=== PATIENT | male | born 1940 | race Caucasian/White ===

== ENCOUNTER 2018-08-05 16:55 | Inpatient (IN) | payer MEDICARE, OTHER, SELFPAY ==
[2018-08-05] VITALS (8 sets, daily range): BP systolic 135–170; BP diastolic 53–83; PULSE 86–120; RESP 18–29; TEMP 36.3–37.2; O2SAT 92–99; BMI 18.3
--- NOTE | 2018-08-05 17:09 | ED.ABDPAIN ---
HPI - Abdominal Pain <Oriana Goel PA-C - Last Filed: 08/05/18 21:08> General Chief Complaint: Abdominal Pain Stated Complaint: bad stomach aches x9 days Time Seen by Provider: 08/05/18 17:09 Source: patient and family Mode of arrival: ambulatory Limitations: no limitations History of Present Illness HPI narrative: This 78-year-old male comes in today due to persistent and worsening abdominal pain. He states that about a month ago, he began to have early saiety and reduced appetite. He thinks he has lost about 30 lb in the last month (7 lbs in the last week since he last weighed himself). He states he has not had any vomiting aside from a single episode a few weeks ago, has had some mild nausea. Two weeks ago, he began to have bilateral flank pain which resolved in a couple of days, and several days later began to have pain in his abdomen. He states the location seems to move around, most recently in the upper quadrants below his rib cage. He states that this has been progressively worsening over the last week, does not feel like his previous kidney stones. Pain is worsened with any jolting, coughing, sneezing. He has not really found any alleviating features. It is present constantly. He tried stop his vitamins, Pepcid, without relief. He states that he has some chronic cough due to long time smoking, denies any new dyspnea or chest pain. He states that he was having normal bowel movements until a few days ago, has not had 1 since but has been eating nothing, and has not eaten today. He is tolerating fluids and has been urinating normally. He denies any fever, recent illness or upper respiratory symptoms or other new complaints on exam such as weakness, pain in arms or legs, or headache. He states that pain does not keep him awake at night. He states he does not see a healthcare provider regularly, does not know of any chronic conditions. The other new symptom on systems review the he notes was tremulousness in his left arm and then leg for 1 day 10 days ago. He states he did not have any weakness or paresthesia and that since resolved. Related Data Home Medications Medication Instructions Recorded Confirmed No Known Home Medications 08/05/18 08/05/18 Allergies Allergy/AdvReac Type Severity Reaction Status Date / Time No Known Drug Allergies Allergy Verified 08/05/18 17:10 Review of Systems <Oriana Goel PA-C - Last Filed: 08/05/18 21:08> Review of Systems All systems reviewed & are unremarkable except as noted in HPI and below PFSH <Oriana Goel PA-C - Last Filed: 08/05/18 21:08> Comment: 120py tob, current smoker, heavy etoh use in his 20s, none since, no street drugs Exam <Oriana Goel PA-C - Last Filed: 08/05/18 21:08> Narrative Exam Narrative: GENERAL APPEARANCE: Patient sitting comfortably, in no distress. HEENT: PERRL, EOMI, no scleral icterus NECK: Supple LUNGS: coarse BS without cough on exam HEART: Rate and rhythm regular, normal S1 and S2, no S3 or S4. ABDOMEN: Soft, nondistended, bowel sounds present x 4 quadrants, right upper quadrant tender with palpable liver border at the costal margin, positive Carlos sign, moderate tenderness throughout the remainder of the epigastrium and mild tenderness throughout the lower quadrants without guarding or rebound. No splenomegaly, no palpable masses EXTREMITIES: No edema, no cyanosis or calf tenderness DERMATOLOGIC: No jaundice or exanthem NEUROLOGIC: Alert and oriented with normal speech and coordination Initial Vital Signs Initial Vital Signs: Vital Signs Temperature 97.4 F L 08/05/18 17:00 Pulse Rate 120 H 08/05/18 17:00 Respiratory Rate 24 08/05/18 17:00 Blood Pressure 141/83 H 08/05/18 17:00 Pulse Oximetry 97 08/05/18 17:00 <Francisca Stein DO - Last Filed: 08/06/18 06:39> Initial Vital Signs Initial Vital Signs: Vital Signs Temperature 97.4 F L 08/05/18 17:00 Pulse Rate 120 H 08/05/18 17:00 Respiratory Rate 24 08/05/18 17:00 Blood Pressure 141/83 H 08/05/18 17:00 Pulse Oximetry 97 08/05/18 17:00 Course <KEYUR Cloud Last Filed: 08/05/18 21:08> Additional Information: Patient reports feeling markedly improved after medications and hydration. We reviewed CT findings and his preference would be to follow up as an outpatient, but Dr. Hester thinks CT findings most consistent with pancreatitis and advised admission to medicine and he will consult. Patient is agreeable. Dr. Paredes salesperson neckties for medicine advised admission for observation. He will see patient and write orders Orders Ordered: ED Orders 08/06/18 Gram Stain Urgent Sputum Culture Urgent 08/06/18 05:42 Complete Blood Count AUTO DIFF Routine Comprehensive Metabolic Panel Routine Lipase Routine Troponin I Routine Acetaminophen (Tylenol) 650 mg PO Q6H PRN PRN Reason: As Needed for Fever/Mild Pain Al Hydrox/Mg Hydrox/Simethicone (Maalox Plus) 30 ml PO Q6H PRN PRN Reason: Dyspepsia Enoxaparin Sodium (Lovenox) 40 mg SUBCUT DAILY [facility] Hydromorphone HCl (Dilaudid) 0.5 mg IV Q2H PRN PRN Reason: Pain, Moderate (4-6) Hydromorphone HCl (Dilaudid) 1 mg IV Q1HR PRN PRN Reason: Pain, Severe (7-10) Sodium Chloride (Normal Saline 0.9%) 1,000 mls @ 1,000 mls/hr IV CONT [facility] Last Infusion: 08/05/18 19:11 Dose: 0 mls/hr Admin: 08/05/18 17:51 Dose: 1,000 mls/hr Dextrose/Sodium Chloride (Dextrose 5%-0.45% Ns) 1,000 mls @ 100 mls/hr IV CONT [facility] Last Admin: 08/05/18 21:59 Dose: 100 mls/hr Ampicillin Sodium/Sulbactam (Sodium 3 gm/ Sodium Chloride) 100 mls @ 100 mls/hr IV Q6H [facility] Last Admin: 08/06/18 06:12 Dose: 100 mls/hr Metronidazole (Flagyl) 500 mg in 100 mls @ 100 mls/hr IV Q6H [facility] Last Infusion: 08/06/18 06:34 Dose: 0 mls/hr Admin: 08/06/18 05:20 Dose: 100 mls/hr Ondansetron HCl (Zofran) 4 mg IV Q8H PRN PRN Reason: Nausea And Vomiting Discontinued Medications Hydromorphone HCl (Dilaudid) 0.5 mg IV NOW ONE Stop: 08/05/18 17:36 Last Admin: 08/05/18 17:50 Dose: 0.5 mg Hydromorphone HCl (Dilaudid) 1 mg IV Q4H PRN PRN Reason: Pain, Severe (7-10) Last Admin: 08/06/18 04:46 Dose: 1 mg Hydromorphone HCl (Dilaudid) 1 mg IV Q1HR [facility] Ampicillin Sodium/Sulbactam (Sodium 3 gm/ Sodium Chloride) 100 mls @ 100 mls/hr IV Q6H [facility] Last Infusion: 08/05/18 23:34 Dose: 0 mls/hr Admin: 08/05/18 21:59 Dose: 100 mls/hr Metronidazole (Flagyl) 500 mg in 100 mls @ 100 mls/hr IV Q6H [facility] Last Infusion: 08/06/18 04:46 Dose: 0 mls/hr Admin: 08/05/18 23:41 Dose: 100 mls/hr Pantoprazole Sodium (Protonix) 40 mg IV NOW ONE Stop: 08/05/18 19:15 Last Admin: 08/05/18 19:44 Dose: 40 mg Vital Signs - 8 hr 08/05/18 23:35 08/06/18 00:18 08/06/18 04:10 Temperature 98.0 F 98.4 F Pulse Rate 87 92 H Respiratory Rate 20 20 Blood Pressure 150/70 H 146/68 H Pulse Oximetry 93 95 98 <Francisca Stein, - Last Filed: 08/06/18 06:39> Orders Ordered: ED Orders 08/06/18 Gram Stain Urgent Sputum Culture Urgent 08/06/18 05:42 Complete Blood Count AUTO DIFF Routine Comprehensive Metabolic Panel Routine Lipase Routine Troponin I Routine Acetaminophen (Tylenol) 650 mg PO Q6H PRN PRN Reason: As Needed for Fever/Mild Pain Al Hydrox/Mg Hydrox/Simethicone (Maalox Plus) 30 ml PO Q6H PRN PRN Reason: Dyspepsia Enoxaparin Sodium (Lovenox) 40 mg SUBCUT DAILY [facility] Hydromorphone HCl (Dilaudid) 0.5 mg IV Q2H PRN PRN Reason: Pain, Moderate (4-6) Hydromorphone HCl (Dilaudid) 1 mg IV Q1HR PRN PRN Reason: Pain, Severe (7-10) Sodium Chloride (Normal Saline 0.9%) 1,000 mls @ 1,000 mls/hr IV CONT [facility] Last Infusion: 08/05/18 19:11 Dose: 0 mls/hr Admin: 08/05/18 17:51 Dose: 1,000 mls/hr Dextrose/Sodium Chloride (Dextrose 5%-0.45% Ns) 1,000 mls @ 100 mls/hr IV CONT [facility] Last Admin: 08/05/18 21:59 Dose: 100 mls/hr Ampicillin Sodium/Sulbactam (Sodium 3 gm/ Sodium Chloride) 100 mls @ 100 mls/hr IV Q6H [facility] Last Admin: 08/06/18 06:12 Dose: 100 mls/hr Metronidazole (Flagyl) 500 mg in 100 mls @ 100 mls/hr IV Q6H [facility] Last Infusion: 08/06/18 06:34 Dose: 0 mls/hr Admin: 08/06/18 05:20 Dose: 100 mls/hr Ondansetron HCl (Zofran) 4 mg IV Q8H PRN PRN Reason: Nausea And Vomiting Discontinued Medications Hydromorphone HCl (Dilaudid) 0.5 mg IV NOW ONE Stop: 08/05/18 17:36 Last Admin: 08/05/18 17:50 Dose: 0.5 mg Hydromorphone HCl (Dilaudid) 1 mg IV Q4H PRN PRN Reason: Pain, Severe (7-10) Last Admin: 08/06/18 04:46 Dose: 1 mg Hydromorphone HCl (Dilaudid) 1 mg IV Q1HR [facility] Ampicillin Sodium/Sulbactam (Sodium 3 gm/ Sodium Chloride) 100 mls @ 100 mls/hr IV Q6H [facility] Last Infusion: 08/05/18 23:34 Dose: 0 mls/hr Admin: 08/05/18 21:59 Dose: 100 mls/hr Metronidazole (Flagyl) 500 mg in 100 mls @ 100 mls/hr IV Q6H [facility] Last Infusion: 08/06/18 04:46 Dose: 0 mls/hr Admin: 08/05/18 23:41 Dose: 100 mls/hr Pantoprazole Sodium (Protonix) 40 mg IV NOW ONE Stop: 08/05/18 19:15 Last Admin: 08/05/18 19:44 Dose: 40 mg Vital Signs - 8 hr 08/05/18 23:35 08/06/18 00:18 08/06/18 04:10 Temperature 98.0 F 98.4 F Pulse Rate 87 92 H Respiratory Rate 20 20 Blood Pressure 150/70 H 146/68 H Pulse Oximetry 93 95 98 MDM - Abdominal Pain <Oriana Goel PA-C - Last Filed: 08/05/18 21:08> Lab Data Attestation: I reviewed the patient's lab results. Result diagrams: 08/06/18 05:42 08/06/18 05:42 Lab Results 08/05/18 08/05/18 08/05/18 Range/Units 17:25 17:25 17:25 WBC 10.2 (4.5-11.0) X10^3/uL RBC 5.40 (4.5-5.9) X10^6/uL Hgb 15.1 (13.5-17.5) g/dL Hct 45.0 (41-53) % MCV 83.4 (80-100) fL MCH 28.0 (26-34) PG MCHC 33.6 (30-36) % RDW 14.2 (11.6-14.8) % Plt Count 327 (150-400) X10^3/uL Neut % (Auto) 81.2 H (50-75) % Lymph % (Auto) 7.7 L (25-40) % [place] % (Auto) 9.4 (3-14) % Eos % (Auto) 1.4 L (2-4) % Baso % (Auto) 0.3 (0-2) % Neut # (Auto) 8300 H (2383-2146) /uL ESR 14 (0-15) MM/HR Sodium 140 (137-145) mmol/L Potassium 4.0 (3.4-5.1) mmol/L Chloride 96 L (98-107) mmol/L Carbon Dioxide 29 (22-32) mmol/L BUN 18 (9-20) mg/dL Creatinine 0.70 (0.66-1.25) mg/dL Estimated GFR > 60.0 (>60) mL/min BUN/Creatinine Ratio 25.7 H (6-22) Glucose 120 H (80-110) mg/dL Lactate (0.7-2.1) mmol/L Calcium 9.4 (8.4-10.2) mg/dL Total Bilirubin 1.2 (0.2-1.3) mg/dL AST 21 (17-59) IU/L ALT 45 (21-72) IU/L Alkaline Phosphatase 126 (38-126) U/L Troponin I (0.01-0.034) ng/mL Total Protein 7.9 (6.3-8.2) g/dL Albumin 4.2 (3.5-5.0) g/dL Globulin 3.7 (1.7-4.1) g/dL Albumin/Globulin Ratio 1.1 (1.0-2.8) Lipase 716 H (23-300) U/L Procalcitonin (<0.5) ng/mL 08/05/18 08/05/18 08/06/18 Range/Units 21:25 21:25 05:42 WBC 6.7 (4.5-11.0) X10^3/uL RBC 4.30 L (4.5-5.9) X10^6/uL Hgb 12.1 L (13.5-17.5) g/dL Hct 35.6 L (41-53) % MCV 82.8 (80-100) fL MCH 28.1 (26-34) PG MCHC 34.0 (30-36) % RDW 13.9 (11.6-14.8) % Plt Count 230 (150-400) X10^3/uL Neut % (Auto) 72.7 (50-75) % Lymph % (Auto) 10.8 L (25-40) % [place] % (Auto) 11.5 (3-14) % Eos % (Auto) 4.5 H (2-4) % Baso % (Auto) 0.5 (0-2) % Neut # (Auto) 4900 (6581-6107) /uL ESR (0-15) MM/HR Sodium (137-145) mmol/L Potassium (3.4-5.1) mmol/L Chloride (98-107) mmol/L Carbon Dioxide (22-32) mmol/L BUN (9-20) mg/dL Creatinine (0.66-1.25) mg/dL Estimated GFR (>60) mL/min BUN/Creatinine Ratio (6-22) Glucose (80-110) mg/dL Lactate 0.7 (0.7-2.1) mmol/L Calcium (8.4-10.2) mg/dL Total Bilirubin (0.2-1.3) mg/dL AST (17-59) IU/L ALT (21-72) IU/L Alkaline Phosphatase (38-126) U/L Troponin I (0.01-0.034) ng/mL Total Protein (6.3-8.2) g/dL Albumin (3.5-5.0) g/dL Globulin (1.7-4.1) g/dL Albumin/Globulin Ratio (1.0-2.8) Lipase (23-300) U/L Procalcitonin < 0.05 (<0.5) ng/mL 08/06/18 Range/Units 05:42 WBC (4.5-11.0) X10^3/uL RBC (4.5-5.9) X10^6/uL Hgb (13.5-17.5) g/dL Hct (41-53) % MCV (80-100) fL MCH (26-34) PG MCHC (30-36) % RDW (11.6-14.8) % Plt Count (150-400) X10^3/uL Neut % (Auto) (50-75) % Lymph % (Auto) (25-40) % [place] % (Auto) (3-14) % Eos % (Auto) (2-4) % Baso % (Auto) (0-2) % Neut # (Auto) (5422-2438) /uL ESR (0-15) MM/HR Sodium 138 (137-145) mmol/L Potassium 3.8 (3.4-5.1) mmol/L Chloride 101 (98-107) mmol/L Carbon Dioxide 28 (22-32) mmol/L BUN 14 (9-20) mg/dL Creatinine 0.60 L (0.66-1.25) mg/dL Estimated GFR > 60.0 (>60) mL/min BUN/Creatinine Ratio 23.3 H (6-22) Glucose 128 H (80-110) mg/dL Lactate (0.7-2.1) mmol/L Calcium 8.4 (8.4-10.2) mg/dL Total Bilirubin 0.8 (0.2-1.3) mg/dL AST 20 (17-59) IU/L ALT 36 (21-72) IU/L Alkaline Phosphatase 79 (38-126) U/L Troponin I 0.020 (0.01-0.034) ng/mL Total Protein 5.7 L (6.3-8.2) g/dL Albumin 2.9 L (3.5-5.0) g/dL Globulin 2.8 (1.7-4.1) g/dL Albumin/Globulin Ratio 1.0 (1.0-2.8) Lipase 439 H (23-300) U/L Procalcitonin (<0.5) ng/mL Imaging Data CT scan - abdomen: Radiologist's impression: [address] [address] [address] Scan Report Signed Patient: Yair Kennedy [facility]#: [id number] : 2Acct:[id number] Age/Sex: 78 / MDate of Service: 08/05/18 Loc: ED Accession Number: [id number] Procedure: CT chest abd pel w con Ordering Provider: Oriana Goel P.A-C PROCEDURE: CT CHEST ABD PEL W CON INDICATIONS: pain, early saiety, weight loss TECHNIQUE: After the administration of intravenous contrast, 5 mm thick sections acquired from the lung apices to the symphysis. 5 mm coronal and sagittal reformats were performed, with additional 7 mm MIP reformats through the lungs. For radiation dose reduction, the following was used: automated exposure control, adjustment of mA and/or kV according to patient size. COMPARISON: None. FINDINGS: Image quality: Excellent. Diagnostic sensitivity for causes of early satiety and weight loss decreased secondary to lack of oral contrast. CHEST: Lungs and pleura: Severe emphysematous changes noted in the lungs bilaterally. There is a 1.4 x 2.0 x 4.8 cm partially calcified soft tissue density mass in the lateral periphery of the left upper lobe may represent parenchymal scarring versus primary bronchogenic neoplasm. There is a 3.2 x 5.1 x 5.6 cm cavitary lesion in the posterior aspect of the right lung apex which contains internal air air-fluid level. Finding may represent infectious or neoplastic process. There is a 2.3 x 1.5 x 3.2 cm partially calcified mass in the mesial aspect of the left upper lobe. There is a 7 mm nodule in the superior segment of the left lower lobe. No pleural effusions or pneumothorax. Central and peripheral airways appear patent and normal in caliber. Mediastinum: Heart size is normal. Atherosclerotic calcifications are noted in the aorta, great vessels and the coronary vasculature. No pericardial effusion. No mediastinal or hilar adenopathy by size criteria. Thoracic aorta and central pulmonary arteries are normal in size. Esophagus is normal in caliber. No hiatal hernia. Chest wall: No axillary or supraclavicular adenopathy by size criteria. Thyroid gland is within normal limits. ABDOMEN: Solid organs: Liver is normal in size and enhancement. Gallbladder contains multiple gallstones. There is prominence of the gallbladder wall. Biliary system is non dilated. Pancreas enhances normally. The calcification noted in the mid body of the pancreas compatible sequela prior chronic pancreatitis. Spleen is normal in size and enhancement. No adrenal nodules. Kidneys demonstrate normal size and enhancement, without hydronephrosis. Small right renal cysts. Peritoneum and bowel: There is prominence of the proximal gastric wall which could be due to nondistention, inflammatory process or infiltrating neoplasm. Inflammatory changes are noted adjacent to the inferior margin of the stomach and superior margin of the tail of the pancreas. Large and small bowel loops have normal caliber. Colonic diverticuli without evidence of diverticulitis. No free air. Small amount of free fluid noted in the lower pelvis. Nodes and vessels: No retroperitoneal or mesenteric adenopathy by size criteria. Aorta and inferior vena cava are normal in size. Scattered atherosclerotic calcifications are noted in the abdominal and pelvic vasculature. Miscellaneous: No ventral hernias. PELVIS: Genitourinary: Bladder wall thickness is normal. Prostate is enlarged. Miscellaneous: No inguinal adenopathy. Right inguinal hernia is noted which contains unremarkable appearing loops of small bowel. Bones: No suspicious bony lesions. No vertebral body compression fractures. Spine degenerative disease and facet arthropathy noted. IMPRESSION: 1. Diagnostic sensitivity of study for causes of weight loss and early satiety diminished secondary to absence of oral contrast. 2. Right upper lobe and left upper lobe partially calcified masses which could represent a parenchymal scarring versus neoplastic process. 3. Cavitary lesion with internal air fluid level in the left lung apex which should represent infectious or neoplastic process. 4. Proximal gastric wall thickening which could be due to nondistention, gastritis or infiltrating malignancy. Recommend endoscopy or barium contrast upper GI series for further evaluation. 5. Inflammatory changes along the inferior margin of the stomach and superior margin of the pancreas which could be secondary to gastritis or pancreatitis. Please correlate with laboratory data. 6. Cholelithiasis with gallbladder wall prominence. There is clinical concern for cholecystitis, recommend abdominal ultrasound for further evaluation. 7. Colonic diverticulosis without evidence of diverticulitis. 8. Large right inguinal hernia which contains unremarkable appearing loops of small bowel. 9. Severe bilateral lung emphysematous disease. 10. Atherosclerosis including the coronary vasculature. Dictated by: Melissa Velarde MD, PhD on 08/05/2018 at 18:49 Approved by: Melissa Velarde MD, PhD on 08/05/2018 at 19:05 ECG Data Attestation: I personally reviewed and interpreted this ECG as follows: (Sinus tach, rate 101, with LAD, L ant fasc block pattern. ) Prior ECG tracings: not available for review <Francisca Stein DO - Last Filed: 08/06/18 06:39> Lab Data Attestation: I reviewed the patient's lab results. Lab Results 08/05/18 08/05/18 08/05/18 Range/Units 17:25 17:25 17:25 WBC 10.2 (4.5-11.0) X10^3/uL RBC 5.40 (4.5-5.9) X10^6/uL Hgb 15.1 (13.5-17.5) g/dL Hct 45.0 (41-53) % MCV 83.4 (80-100) fL MCH 28.0 (26-34) PG MCHC 33.6 (30-36) % RDW 14.2 (11.6-14.8) % Plt Count 327 (150-400) X10^3/uL Neut % (Auto) 81.2 H (50-75) % Lymph % (Auto) 7.7 L (25-40) % [place] % (Auto) 9.4 (3-14) % Eos % (Auto) 1.4 L (2-4) % Baso % (Auto) 0.3 (0-2) % Neut # (Auto) 8300 H (3280-2684) /uL ESR 14 (0-15) MM/HR Sodium 140 (137-145) mmol/L Potassium 4.0 (3.4-5.1) mmol/L Chloride 96 L (98-107) mmol/L Carbon Dioxide 29 (22-32) mmol/L BUN 18 (9-20) mg/dL Creatinine 0.70 (0.66-1.25) mg/dL Estimated GFR > 60.0 (>60) mL/min BUN/Creatinine Ratio 25.7 H (6-22) Glucose 120 H (80-110) mg/dL Lactate (0.7-2.1) mmol/L Calcium 9.4 (8.4-10.2) mg/dL Total Bilirubin 1.2 (0.2-1.3) mg/dL AST 21 (17-59) IU/L ALT 45 (21-72) IU/L Alkaline Phosphatase 126 (38-126) U/L Troponin I (0.01-0.034) ng/mL Total Protein 7.9 (6.3-8.2) g/dL Albumin 4.2 (3.5-5.0) g/dL Globulin 3.7 (1.7-4.1) g/dL Albumin/Globulin Ratio 1.1 (1.0-2.8) Lipase 716 H (23-300) U/L Procalcitonin (<0.5) ng/mL 08/05/18 08/05/18 08/06/18 Range/Units 21:25 21:25 05:42 WBC 6.7 (4.5-11.0) X10^3/uL RBC 4.30 L (4.5-5.9) X10^6/uL Hgb 12.1 L (13.5-17.5) g/dL Hct 35.6 L (41-53) % MCV 82.8 (80-100) fL MCH 28.1 (26-34) PG MCHC 34.0 (30-36) % RDW 13.9 (11.6-14.8) % Plt Count 230 (150-400) X10^3/uL Neut % (Auto) 72.7 (50-75) % Lymph % (Auto) 10.8 L (25-40) % [place] % (Auto) 11.5 (3-14) % Eos % (Auto) 4.5 H (2-4) % Baso % (Auto) 0.5 (0-2) % Neut # (Auto) 4900 (6805-4323) /uL ESR (0-15) MM/HR Sodium (137-145) mmol/L Potassium (3.4-5.1) mmol/L Chloride (98-107) mmol/L Carbon Dioxide (22-32) mmol/L BUN (9-20) mg/dL Creatinine (0.66-1.25) mg/dL Estimated GFR (>60) mL/min BUN/Creatinine Ratio (6-22) Glucose (80-110) mg/dL Lactate 0.7 (0.7-2.1) mmol/L Calcium (8.4-10.2) mg/dL Total Bilirubin (0.2-1.3) mg/dL AST (17-59) IU/L ALT (21-72) IU/L Alkaline Phosphatase (38-126) U/L Troponin I (0.01-0.034) ng/mL Total Protein (6.3-8.2) g/dL Albumin (3.5-5.0) g/dL Globulin (1.7-4.1) g/dL Albumin/Globulin Ratio (1.0-2.8) Lipase (23-300) U/L Procalcitonin < 0.05 (<0.5) ng/mL 08/06/18 Range/Units 05:42 WBC (4.5-11.0) X10^3/uL RBC (4.5-5.9) X10^6/uL Hgb (13.5-17.5) g/dL Hct (41-53) % MCV (80-100) fL MCH (26-34) PG MCHC (30-36) % RDW (11.6-14.8) % Plt Count (150-400) X10^3/uL Neut % (Auto) (50-75) % Lymph % (Auto) (25-40) % [place] % (Auto) (3-14) % Eos % (Auto) (2-4) % Baso % (Auto) (0-2) % Neut # (Auto) (4300-8957) /uL ESR (0-15) MM/HR Sodium 138 (137-145) mmol/L Potassium 3.8 (3.4-5.1) mmol/L Chloride 101 (98-107) mmol/L Carbon Dioxide 28 (22-32) mmol/L BUN 14 (9-20) mg/dL Creatinine 0.60 L (0.66-1.25) mg/dL Estimated GFR > 60.0 (>60) mL/min BUN/Creatinine Ratio 23.3 H (6-22) Glucose 128 H (80-110) mg/dL Lactate (0.7-2.1) mmol/L Calcium 8.4 (8.4-10.2) mg/dL Total Bilirubin 0.8 (0.2-1.3) mg/dL AST 20 (17-59) IU/L ALT 36 (21-72) IU/L Alkaline Phosphatase 79 (38-126) U/L Troponin I 0.020 (0.01-0.034) ng/mL Total Protein 5.7 L (6.3-8.2) g/dL Albumin 2.9 L (3.5-5.0) g/dL Globulin 2.8 (1.7-4.1) g/dL Albumin/Globulin Ratio 1.0 (1.0-2.8) Lipase 439 H (23-300) U/L Procalcitonin (<0.5) ng/mL ECG Data Attestation: I personally reviewed and interpreted this ECG as follows: Prior ECG tracings: not available for review Interpretation: Normal sinus rhythm rate 101 normal left anterior fascicular block noted, PVC noted appear interval 126, QRS 97, QTC 378 no ischemic changes no priors to compare Discharge Plan Departure Patient Disposition: Admitted as Observation Clinical Impression: Pancreatitis, Cholecystitis Discharge Date/Time: 08/05/18 20:23 Interventions: ED Discharge Assessment Last Done: 08/05/18 20:22 Admit Date/Time: 08/05/18 19:47 Admit Provider: Tato Paredes <Francisca Stein DO - Last Filed: 08/06/18 06:39> Cosign ED Attending Cosignature Attestation: I was immediately available in the department for consultation. Documentation has been reviewed. I agree with assessment and plan.
--- NOTE | 2018-08-05 17:35 | DI.CT.S_ITS ---
PROCEDURE: CT CHEST ABD PEL W CON INDICATIONS: pain, early saiety, weight loss TECHNIQUE: After the administration of intravenous contrast, 5 mm thick sections acquired from the lung apices to the symphysis. 5 mm coronal and sagittal reformats were performed, with additional 7 mm MIP reformats through the lungs. For radiation dose reduction, the following was used: automated exposure control, adjustment of mA and/or kV according to patient size. COMPARISON: None. FINDINGS: Image quality: Excellent. Diagnostic sensitivity for causes of early satiety and weight loss decreased secondary to lack of oral contrast. CHEST: Lungs and pleura: Severe emphysematous changes noted in the lungs bilaterally. There is a 1.4 x 2.0 x 4.8 cm partially calcified soft tissue density mass in the lateral periphery of the left upper lobe may represent parenchymal scarring versus primary bronchogenic neoplasm. There is a 3.2 x 5.1 x 5.6 cm cavitary lesion in the posterior aspect of the right lung apex which contains internal air air-fluid level. Finding may represent infectious or neoplastic process. There is a 2.3 x 1.5 x 3.2 cm partially calcified mass in the mesial aspect of the left upper lobe. There is a 7 mm nodule in the superior segment of the left lower lobe. No pleural effusions or pneumothorax. Central and peripheral airways appear patent and normal in caliber. Mediastinum: Heart size is normal. Atherosclerotic calcifications are noted in the aorta, great vessels and the coronary vasculature. No pericardial effusion. No mediastinal or hilar adenopathy by size criteria. Thoracic aorta and central pulmonary arteries are normal in size. Esophagus is normal in caliber. No hiatal hernia. Chest wall: No axillary or supraclavicular adenopathy by size criteria. Thyroid gland is within normal limits. ABDOMEN: Solid organs: Liver is normal in size and enhancement. Gallbladder contains multiple gallstones. There is prominence of the gallbladder wall. Biliary system is non dilated. Pancreas enhances normally. The calcification noted in the mid body of the pancreas compatible sequela prior chronic pancreatitis. Spleen is normal in size and enhancement. No adrenal nodules. Kidneys demonstrate normal size and enhancement, without hydronephrosis. Small right renal cysts. Peritoneum and bowel: There is prominence of the proximal gastric wall which could be due to nondistention, inflammatory process or infiltrating neoplasm. Inflammatory changes are noted adjacent to the inferior margin of the stomach and superior margin of the tail of the pancreas. Large and small bowel loops have normal caliber. Colonic diverticuli without evidence of diverticulitis. No free air. Small amount of free fluid noted in the lower pelvis. Nodes and vessels: No retroperitoneal or mesenteric adenopathy by size criteria. Aorta and inferior vena cava are normal in size. Scattered atherosclerotic calcifications are noted in the abdominal and pelvic vasculature. Miscellaneous: No ventral hernias. PELVIS: Genitourinary: Bladder wall thickness is normal. Prostate is enlarged. Miscellaneous: No inguinal adenopathy. Right inguinal hernia is noted which contains unremarkable appearing loops of small bowel. Bones: No suspicious bony lesions. No vertebral body compression fractures. Spine degenerative disease and facet arthropathy noted. IMPRESSION: 1. Diagnostic sensitivity of study for causes of weight loss and early satiety diminished secondary to absence of oral contrast. 2. Right upper lobe and left upper lobe partially calcified masses which could represent a parenchymal scarring versus neoplastic process. 3. Cavitary lesion with internal air fluid level in the left lung apex which should represent infectious or neoplastic process. 4. Proximal gastric wall thickening which could be due to nondistention, gastritis or infiltrating malignancy. Recommend endoscopy or barium contrast upper GI series for further evaluation. 5. Inflammatory changes along the inferior margin of the stomach and superior margin of the pancreas which could be secondary to gastritis or pancreatitis. Please correlate with laboratory data. 6. Cholelithiasis with gallbladder wall prominence. There is clinical concern for cholecystitis, recommend abdominal ultrasound for further evaluation. 7. Colonic diverticulosis without evidence of diverticulitis. 8. Large right inguinal hernia which contains unremarkable appearing loops of small bowel. 9. Severe bilateral lung emphysematous disease. 10. Atherosclerosis including the coronary vasculature. Dictated by: Melissa Velarde MD, PhD on 08/05/2018 at 18:49 Approved by: Melissa Velarde MD, PhD on 08/05/2018 at 19:05
[2018-08-05 17:45] LABS: Add Manual Diff / Slide Review NO; Basophils Percent Auto 0.3 % (0-2); Eosinophils Percent Auto 1.4 % (2-4); Hemoglobin 15.1 g/dL (13.5-17.5); Lymphocytes Percent Auto 7.7 % (25-40); Mean Corpuscular HGB Conc 33.6 % (30-36); Mean Corpuscular Volume 83.4 fL (80-100); Monocytes Percent Auto 9.4 % (3-14); Neutrophils Absolute Auto 8300 /uL (3000-5900); Neutrophils Percent Auto 81.2 % (50-75); Platelet Count 327 X10^3/uL (150-400); Red Cell Distribution Width 14.2 % (11.6-14.8); White Blood Cell Count 10.2 X10^3/uL (4.5-11.0)
[2018-08-05] MEDS: HYDROMORPHONE 1 MG INJ 0.5 MG IV (17:50)
[2018-08-05] MEDS: SODIUM CHLORIDE 0.9% 1,000 ML 1000 ML IV (17:51)
[2018-08-05 17:57] LABS: Alanine Aminotransferase 45 IU/L (21-72); Albumin 4.2 g/dL (3.5-5.0); Albumin Globulin Ratio 1.1 (1.0-2.8); Alkaline Phosphatase 126 U/L (38-126); Aspartate Aminotransferase 21 IU/L (17-59); BUN Creatinine Ratio 25.7 (6-22); Bilirubin Total 1.2 mg/dL (0.2-1.3); Blood Urea Nitrogen 18 mg/dL (9-20); Calcium 9.4 mg/dL (8.4-10.2); Carbon Dioxide 29 mmol/L (22-32); Chloride 96 mmol/L (98-107); Estimated Glomerular Filt Rate > 60.0 mL/min (>60); Globulin 3.7 g/dL (1.7-4.1); Glucose 120 mg/dL (80-110); HEMOLYSIS < 15 (0-50); Lipase 716 U/L (23-300); Sodium 140 mmol/L (137-145); Total Protein 7.9 g/dL (6.3-8.2)
[2018-08-05] MEDS: PANTOPRAZOLE 40 MG VIAL IV (19:44)
--- NOTE | 2018-08-05 21:02 | P.HP_ITS ---
History of Present Illness Date Patient Seen: 08/05/18 Time Patient Seen: 20:56 Chief complaint: bad stomach aches x9 days Narrative: 78-year-old male presents with increasing abdominal pain and weight loss. He has had severe abdominal discomfort and pain mostly in the right upper quadrant area for the past 10 days but he has had symptoms of decreased appetite and discomfort for a couple of months he says he has lost 30/30 lb in the past 2 months. He can no longer eat anything even half a sandwich causes pain and causes him to not want to eat anything. He has not had any vomiting with this but early satiety and increased abdominal pain. He does note a chronic cough also Patient History Medical History Chronic cough (Chronic) Inguinal hernia (Chronic) Surgical History H/O inguinal hernia repair (Resolved) Family & Social History Safety & Behavioral: Feels Safe in Current No Environment Been Physically Hurt or No Threatened By a Person Suicidal Ideation Description None Suicide Plan Description No Plan Tobacco & Substance use: Tobacco type cigarettes Smoking Status Current every day smoker Smoking packs per day 1.2 alcohol intake former Substance Use Type does not use Meds Home Medications Medication Instructions Recorded Confirmed Type No Known Home Medications 08/05/18 08/05/18 History Allergies Allergy/AdvReac Type Severity Reaction Status Date / Time No Known Drug Allergies Allergy Verified 08/05/18 17:10 Review of Systems Constitutional Constitutional: Denies body ache(s), Denies chills, Reports malaise, Denies night sweats and Reports weight loss Eyes Eyes: Reports system reviewed; no additional complaints, except as documented ENT Ears, Nose, Mouth, and Throat: Yes system reviewed; no additional complaints, except as documented Cardiovascular Cardiovascular: Reports system reviewed; no additional complaints, except as documented and Reports shortness of breath with activity Respiratory Respiratory: Reports chest congestion, Reports cough, Reports excessive phlegm production and Reports dyspnea on exertion Gastrointestinal Gastrointestinal: Reports abdominal pain, Denies melena, Denies hematochezia, Denies constipation and Denies vomiting Genitourinary Genitourinary: Reports system reviewed and no additional complaints, except as documented Musculoskeletal Musculoskeletal: Reports system reviewed; no additional complaints, except as documented Integumentary/Breasts Skin/Breast: Reports system reviewed and no additional complaints, except as documented Neurologic Neurologic: Reports system reviewed and no additional complaints, except as documented Psychiatric Psychiatric: Reports system reviewed and no additional complaints, except as documented Endocrine Endocrine: Reports system reviewed and no additional complaints, except as documented Hematologic/Lymphatic Hematologic/Lymphatic: Reports system reviewed and no additional complaints, except as documented Allergic/Immunologic Allergic/Immunologic: Reports system reviewed and no additional complaints, except as documented Exam Vital Signs (past 8 hours): - 08/05/18 17:00 08/05/18 18:29 08/05/18 19:30 Temperature 97.4 F L Pulse Rate 120 H 96 H 95 H Respiratory Rate 24 18 25 H Blood Pressure 141/83 H Blood Pressure [Right Arm] 146/53 H 155/63 H Pulse Oximetry 97 99 92 08/05/18 20:00 08/05/18 20:22 Temperature Pulse Rate 86 96 H Respiratory Rate 22 29 H Blood Pressure 164/76 H Blood Pressure [Right Arm] 170/71 H Pulse Oximetry 95 93 Oxygen Delivery Method Room Air Narrative Exam Narrative: Pleasant elderly male appearin ill but no acute distress HEENT exam unremarkable Oropharynx clear Neck is supple no JVD no bruit Lungs some scattered rhonchi Prolonged expiratory phase Heart regular rhythm Abdomen soft there is tenderness to palpation in the right upper quadrant bowel sounds are present no masses noted Lower extremities no edema Skin warm and dry Neuro exam awake alert oriented no focal deficits Objective Labs Result Diagrams: 08/05/18 17:25 08/05/18 17:25 Labs: Laboratory Results - last 24 hr 08/05/18 08/05/18 17:25 17:25 WBC 10.2 RBC 5.40 Hgb 15.1 Hct 45.0 MCV 83.4 MCH 28.0 MCHC 33.6 RDW 14.2 Plt Count 327 Neut % (Auto) 81.2 H Lymph % (Auto) 7.7 L Armstrong % (Auto) 9.4 Eos % (Auto) 1.4 L Baso % (Auto) 0.3 Neut # (Auto) 8300 H Sodium 140 Potassium 4.0 Chloride 96 L Carbon Dioxide 29 BUN 18 Creatinine 0.70 Estimated GFR > 60.0 BUN/Creatinine Ratio 25.7 H Glucose 120 H Calcium 9.4 Total Bilirubin 1.2 AST 21 ALT 45 Alkaline Phosphatase 126 Total Protein 7.9 Albumin 4.2 Globulin 3.7 Albumin/Globulin Ratio 1.1 Lipase 716 H Assessment & Plan Plan: Assessment/Plan Narrative: One. Right upper quadrant abdominal pain with weight loss and inability to take oral food for the past week. He does have elevated lipases probably some pancreatitis going on by think he also has acute cholecystitis. The patient will be admitted to the hospital placed on IV fluids IV antibiotics and consult with the surgery 2. Cavitary lesion on the lungs by CT scan possible pulmonary abscess this also could explain his weight loss plan to continue antibiotics for this and continue watching repeat imaging at some point he does have long history of smoking there is some other lesions on the CT that possibly could be neoplastic. PET scan at some point may be beneficial. Consider biopsies if there is something that is accessible 3. Code status the patient desires to be DNR
[2018-08-05 21:35] LABS: Erythrocyte Sedimentation Rate 14 MM/HR (0-15)
[2018-08-05 21:45] LABS: Lactate (Lactic Acid) 0.7 mmol/L (0.7-2.1)
[2018-08-05] MEDS: DEXTROSE 5%-0.45% NS 1,000 ML 100 ML IV (21:59)
[2018-08-05] MEDS: AMPICILLIN/SULBACTAM 3 GM 3 GM in SODIUM CHLORIDE 0.9% 100 ML IV (21:59)
[2018-08-05 22:04] LABS: Procalcitonin < 0.05 ng/mL (<0.5)
--- NOTE | 2018-08-05 22:07 | PC.ADMIT ---
Admission Note: Pt arrived to floor at 2019. alert and oriented. good historian. moriah, left with pt belongings. Pt oriented to hospital room and procedures. compliant with nursing assessments. Pt cooperative and pleasant. Pt denies pain at this time. states he is used to it. discussed plan of care with pt and pt compliant. bed alarm on, given warm blankets and water. will continue to monitor pt for safety.
[2018-08-05] MEDS: metroNIDAZOLE 500 MG/100 ML PIGGYBACK 100 MG IV (23:41)
[2018-08-06] VITALS (10 sets, daily range): BP systolic 134–155; BP diastolic 66–77; PULSE 80–92; RESP 16–28; TEMP 36.3–37.3; O2SAT 92–98
--- NOTE | 2018-08-06 | PATH_ITS ---
Note [facility] Accession Number: [id number] TESTS RESULT FLAG UNITS REF RANGE LAB Clinician Provided Cytology Information No. of containers..02 Previously Prepared Cytology Slide SPUTUM DIAGNOSIS: 02 SPUTUM NEGATIVE FOR MALIGNANT CELLS. NORMAL BRONCHIAL CELLS AND MACROPHAGES ARE PRESENT. CURSCHMANN'S SPIRALS ARE PRESENT, A NON-SPECIFIC FINDING. Pathologist ICD10: 02 R05 02 Griselda Condon MD, Pathologist NPI- [id number] Laila Barnett, Deputy Insurance Commissioner ([facility]) 01 RECEIVED: 2 ALCOHOL FIXED SLIDES. /VDU FLAG LEGEND: L-Low Normal,H-High Normal,LL-Alert Low,HH-Alert High <-Panic Low,>-Panic High,A-Abnormal,AA-Critical Abnormal Performed at: 01 =Z [facility] [address], [place] [address] Silver Fajardo MD, 02 LCLWA [facility] [address] [place] [id number] Chandrakant Cerna MD, Performed at: 01 [facility] [address], [place], [place] [id number] MD Silver Fajardo MD Phone: [phone]
[2018-08-06] MEDS: HYDROMORPHONE 0.5 MG INJ 1 MG IV (04:46)
[2018-08-06] MEDS: metroNIDAZOLE 500 MG/100 ML PIGGYBACK 100 MG IV ×4 (05:20→23:38)
[2018-08-06 05:52] LABS: Add Manual Diff / Slide Review NO; Basophils Percent Auto 0.5 % (0-2); Eosinophils Percent Auto 4.5 % (2-4); Hematocrit 35.6 % (41-53); Hemoglobin 12.1 g/dL (13.5-17.5); Lymphocytes Percent Auto 10.8 % (25-40); Mean Corpuscular Hemoglobin 28.1 PG (26-34); Mean Corpuscular Volume 82.8 fL (80-100); Monocytes Percent Auto 11.5 % (3-14); Neutrophils Absolute Auto 4900 /uL (3000-5900); Neutrophils Percent Auto 72.7 % (50-75); Platelet Count 230 X10^3/uL (150-400); Red Cell Distribution Width 13.9 % (11.6-14.8); White Blood Cell Count 6.7 X10^3/uL (4.5-11.0)
[2018-08-06 06:06] LABS: Alanine Aminotransferase 36 IU/L (21-72); Albumin 2.9 g/dL (3.5-5.0); Alkaline Phosphatase 79 U/L (38-126); Aspartate Aminotransferase 20 IU/L (17-59); BUN Creatinine Ratio 23.3 (6-22); Bilirubin Total 0.8 mg/dL (0.2-1.3); Blood Urea Nitrogen 14 mg/dL (9-20); Calcium 8.4 mg/dL (8.4-10.2); Carbon Dioxide 28 mmol/L (22-32); Chloride 101 mmol/L (98-107); Estimated Glomerular Filt Rate > 60.0 mL/min (>60); Globulin 2.8 g/dL (1.7-4.1); Glucose 128 mg/dL (80-110); Lipase 439 U/L (23-300); Potassium 3.8 mmol/L (3.4-5.1); Sodium 138 mmol/L (137-145); Total Protein 5.7 g/dL (6.3-8.2)
[2018-08-06] MEDS: AMPICILLIN/SULBACTAM 3 GM 3 GM in SODIUM CHLORIDE 0.9% 100 ML IV ×3 (06:12→18:25)
[2018-08-06 06:19] LABS: HEMOLYSIS < 15 (0-50)
--- NOTE | 2018-08-06 07:32 | PM.PN.1 ---
Subjective Date Patient Seen: 08/06/18 Time Patient Seen: 06:00 Interval history: History of present illness Patient admitted to the hospital acute cholecystitis. General surgery consult was obtained on admission. Patient also with a very worrisome CT scan of the chest and abdomen on admission. The CT scan shows quite a bit of busyness to the apex and bilateral upper lobe regions. Patient is an elderly male with long-standing history of smoking with chronic lung disease. The CAT scan shows a fairly severe grade emphysematous changes. A patient as described has increased risk of Mycobacterium avium complex infection. ie an elderly white male smoker with chronic lung disease. Which can result in cavitation and fairly extensive lung disease. Disseminated mycobacterium avium complex can also occur. I spoke to a supervisor insecticide at [facility] who reviewed the CT of the chest films and notes the possibility A patient having a bacterial pneumonia process in a pre-existing cavitary like lesion related to emphysema Or possibly an aspergilloma or possibly mycobacterium avium complex or possibly mycobacterium tuberculosis. In view of this differential the supervisor insecticide's notes patient should remain in respiratory isolation until the AFB stains that I have ordered or done daily and found to be negative. I also ordered additional blood cultures in special media designed to grow mycobacteria. Note that these additional blood cultures cannot be determined As negative for mycobacteria growth until after total of 6 weeks. In the meantime, as recommended by supervisor insecticide continue the Unasyn along with the Flagyl which may also be of course a dressing the acute cholecystitis. Patient could be discharged on Augmentin. The supervisor insecticide did not feel a bronchoscopy was in order at this time but did feel After the treatment as described with antibiotics a repeat CT of the chest in 6-8 weeks could be done to determine if patient has continuous of the same abnormal findings On CT of the chest. I would recommend patient deferred to Dr. Washington the ID specialist at [facility] upon eventual discharge so that he could follow this patient regarding Images and treatment. Patient has no primary care doctor in outpatient setting that normally follows him. Please note that the fairly extensive weight loss could be related to a mycobacterium infection wether TB versus non-TB infection. Where as the tuberculous Infection can be more often associated with more dramatic weight loss then MAC infection, the MAC infection can be more insidious and show quite dramatic changes to the lung when seen in initial diagnosis. Review of systems No chest pain. Patient does feel short of breath when he ambulates. No nausea at this time. Patient notes about a 30 lb weight loss over the last 2 months. Exam Vital Signs (past 8 hours): - 08/05/18 23:35 08/06/18 00:18 08/06/18 04:10 Temperature 98.0 F 98.4 F Pulse Rate 87 92 H Respiratory Rate 20 20 Blood Pressure 150/70 H 146/68 H Pulse Oximetry 93 95 98 Oxygen Delivery Method Room Air Narrative Exam Narrative: General appearance a very cachectic elderly appearing male patient with mild respiratory distress at rest. Patient is awake and alert Psychiatric well oriented to time place person mood is pleasant affect is appropriate Respiratory fair breath sounds noted with crackles on inspiration and wheezing sounds Cardiovascular regular rate rhythm no murmurs noted +3 pulses to extremities GI soft with tenderness to the right upper quadrant to palpation positive bowel sounds are noted no bruits Neurologic no focal neurologic changes cranial nerves 2-12 grossly intact Objective Labs Result Diagrams: 08/06/18 05:42 08/06/18 05:42 Labs: Laboratory Results - last 24 hr 08/05/18 08/05/18 08/05/18 17:25 17:25 17:25 WBC 10.2 RBC 5.40 Hgb 15.1 Hct 45.0 MCV 83.4 MCH 28.0 MCHC 33.6 RDW 14.2 Plt Count 327 Neut % (Auto) 81.2 H Lymph % (Auto) 7.7 L [place] % (Auto) 9.4 Eos % (Auto) 1.4 L Baso % (Auto) 0.3 Neut # (Auto) 8300 H ESR 14 Sodium 140 Potassium 4.0 Chloride 96 L Carbon Dioxide 29 BUN 18 Creatinine 0.70 Estimated GFR > 60.0 BUN/Creatinine Ratio 25.7 H Glucose 120 H Lactate Calcium 9.4 Total Bilirubin 1.2 AST 21 ALT 45 Alkaline Phosphatase 126 Troponin I Total Protein 7.9 Albumin 4.2 Globulin 3.7 Albumin/Globulin Ratio 1.1 Lipase 716 H Procalcitonin 08/05/18 08/05/18 08/06/18 21:25 21:25 05:42 WBC 6.7 RBC 4.30 L Hgb 12.1 L Hct 35.6 L MCV 82.8 MCH 28.1 MCHC 34.0 RDW 13.9 Plt Count 230 Neut % (Auto) 72.7 Lymph % (Auto) 10.8 L [place] % (Auto) 11.5 Eos % (Auto) 4.5 H Baso % (Auto) 0.5 Neut # (Auto) 4900 ESR Sodium Potassium Chloride Carbon Dioxide BUN Creatinine Estimated GFR BUN/Creatinine Ratio Glucose Lactate 0.7 Calcium Total Bilirubin AST ALT Alkaline Phosphatase Troponin I Total Protein Albumin Globulin Albumin/Globulin Ratio Lipase Procalcitonin < 0.05 08/06/18 05:42 WBC RBC Hgb Hct MCV MCH MCHC RDW Plt Count Neut % (Auto) Lymph % (Auto) [place] % (Auto) Eos % (Auto) Baso % (Auto) Neut # (Auto) ESR Sodium 138 Potassium 3.8 Chloride 101 Carbon Dioxide 28 BUN 14 Creatinine 0.60 L Estimated GFR > 60.0 BUN/Creatinine Ratio 23.3 H Glucose 128 H Lactate Calcium 8.4 Total Bilirubin 0.8 AST 20 ALT 36 Alkaline Phosphatase 79 Troponin I 0.020 Total Protein 5.7 L Albumin 2.9 L Globulin 2.8 Albumin/Globulin Ratio 1.0 Lipase 439 H Procalcitonin Assessment & Plan Plan: Assessment/Plan Narrative: ACUTE CHOLECYSTITIS general surgeon consulted already patient NPO. POSSIBLE PULMONARY MYCOBACTERIUM INFECTION (TB VS NON-TB) VS OTHER INFECTIOUS ETIOLOGY VS MALIGNANCY. Reverse isolation Now Sputum send daily for AFB Patient on Unasyn and Flagyl by admitting doc Patient also with a very worrisome CT scan of the chest and abdomen on admission. The CT scan shows quite a bit of busyness to the apex and bilateral upper lobe regions. Patient is an elderly male with long-standing history of smoking with chronic lung disease. The CAT scan shows a fairly severe grade emphysematous changes. A patient as described has increased risk of Mycobacterium avium complex infection. ie an elderly white male smoker with chronic lung disease. Which can result in cavitation and fairly extensive lung disease. Disseminated mycobacterium avium complex can also occur. I spoke to a supervisor insecticide at [facility] who reviewed the CT of the chest films and notes the possibility A patient having a bacterial pneumonia process in a pre-existing cavitary like lesion related to emphysema Or possibly an aspergilloma or possibly mycobacterium avium complex or possibly mycobacterium tuberculosis. In view of this differential the supervisor insecticide's notes patient should remain in respiratory isolation until the AFB stains that I have ordered or done daily and found to be negative. I also ordered additional blood cultures in special media designed to grow mycobacteria. Note that these additional blood cultures cannot be determined As negative for mycobacteria growth until after total of 6 weeks. In the meantime, as recommended by supervisor insecticide continue the Unasyn along with the Flagyl which may also be of course a dressing the acute cholecystitis. Patient could be discharged on Augmentin. The supervisor insecticide did not feel a bronchoscopy was in order at this time but did feel After the treatment as described with antibiotics a repeat CT of the chest in 6-8 weeks could be done to determine if patient has continuous of the same abnormal findings On CT of the chest. I would recommend patient deferred to Dr. Washington the ID specialist at [facility] upon eventual discharge so that he could follow this patient regarding Images and treatment. Patient has no primary care doctor in outpatient setting that normally follows him. Please note that the fairly extensive weight loss could be related to a mycobacterium infection wether TB versus non-TB infection. Where as the tuberculous Infection can be more often associated with more dramatic weight loss then MAC infection, the MAC infection can be more insidious and show quite dramatic changes to the lung when seen in initial diagnosis. SEVERE PROTEIN CHERYL MALNUTRTION 30 lb weight loss over past several months dietary consult Consider TPN vs NGT feeding if continued poor eating habits noted after cholecystectomy CONTINUED SMOKER ADDICTION nicotine patch. Other findings on CT 08/05: Diverticulosis Large Right Inguinal Hernia. Time Spent With Patient Time with patient: Greater than 35 minutes (50 min)
--- NOTE | 2018-08-06 07:37 | P.PN_ITS ---
Subjective Date Patient Seen: 08/06/18 Time Patient Seen: 06:00 Interval history: History of present illness Patient admitted to the hospital acute cholecystitis. General surgery consult was obtained on admission. Patient also with a very worrisome CT scan of the chest and abdomen on admission. The CT scan shows quite a bit of busyness to the apex and bilateral upper lobe regions. Patient is an elderly male with long-standing history of smoking with chronic lung disease. The CAT scan shows a fairly severe grade emphysematous changes. A patient as described has increased risk of Mycobacterium avium complex infection. ie an elderly white male smoker with chronic lung disease. Which can result in cavitation and fairly extensive lung disease. Disseminated mycobacterium avium complex can also occur. I spoke to a stencil inspector at [facility] who reviewed the CT of the chest films and notes the possibility A patient having a bacterial pneumonia process in a pre-existing cavitary like lesion related to emphysema Or possibly an aspergilloma or possibly mycobacterium avium complex or possibly mycobacterium tuberculosis. In view of this differential the stencil inspector's notes patient should remain in respiratory isolation until the AFB stains that I have ordered or done daily and found to be negative. I also ordered additional blood cultures in special media designed to grow mycobacteria. Note that these additional blood cultures cannot be determined As negative for mycobacteria growth until after total of 6 weeks. In the meantime, as recommended by stencil inspector continue the Unasyn along with the Flagyl which may also be of course a dressing the acute cholecystitis. Patient could be discharged on Augmentin. The stencil inspector did not feel a bronchoscopy was in order at this time but did feel After the treatment as described with antibiotics a repeat CT of the chest in 6- 8 weeks could be done to determine if patient has continuous of the same abnormal findings On CT of the chest. I would recommend patient deferred to Dr. Washington the ID specialist at [facility] upon eventual discharge so that he could follow this patient regarding Images and treatment. Patient has no primary care doctor in outpatient setting that normally follows him. Please note that the fairly extensive weight loss could be related to a mycobacterium infection wether TB versus non-TB infection. Where as the tuberculous Infection can be more often associated with more dramatic weight loss then MAC infection, the MAC infection can be more insidious and show quite dramatic changes to the lung when seen in initial diagnosis. Review of systems No chest pain. Patient does feel short of breath when he ambulates. No nausea at this time. Patient notes about a 30 lb weight loss over the last 2 months. Exam Vital Signs (past 8 hours): - 08/05/18 23:35 08/06/18 00:18 08/06/18 04:10 Temperature 98.0 F 98.4 F Pulse Rate 87 92 H Respiratory Rate 20 20 Blood Pressure 150/70 H 146/68 H Pulse Oximetry 93 95 98 Oxygen Delivery Method Room Air Narrative Exam Narrative: General appearance a very cachectic elderly appearing male patient with mild respiratory distress at rest. Patient is awake and alert Psychiatric well oriented to time place person mood is pleasant affect is appropriate Respiratory fair breath sounds noted with crackles on inspiration and wheezing sounds Cardiovascular regular rate rhythm no murmurs noted +3 pulses to extremities GI soft with tenderness to the right upper quadrant to palpation positive bowel sounds are noted no bruits Neurologic no focal neurologic changes cranial nerves 2-12 grossly intact Objective Labs Result Diagrams: 08/06/18 05:42 08/06/18 05:42 Labs: Laboratory Results - last 24 hr 08/05/18 08/05/18 08/05/18 17:25 17:25 17:25 WBC 10.2 RBC 5.40 Hgb 15.1 Hct 45.0 MCV 83.4 MCH 28.0 MCHC 33.6 RDW 14.2 Plt Count 327 Neut % (Auto) 81.2 H Lymph % (Auto) 7.7 L [place] % (Auto) 9.4 Eos % (Auto) 1.4 L Baso % (Auto) 0.3 Neut # (Auto) 8300 H ESR 14 Sodium 140 Potassium 4.0 Chloride 96 L Carbon Dioxide 29 BUN 18 Creatinine 0.70 Estimated GFR > 60.0 BUN/Creatinine Ratio 25.7 H Glucose 120 H Lactate Calcium 9.4 Total Bilirubin 1.2 AST 21 ALT 45 Alkaline Phosphatase 126 Troponin I Total Protein 7.9 Albumin 4.2 Globulin 3.7 Albumin/Globulin Ratio 1.1 Lipase 716 H Procalcitonin 08/05/18 08/05/18 08/06/18 21:25 21:25 05:42 WBC 6.7 RBC 4.30 L Hgb 12.1 L Hct 35.6 L MCV 82.8 MCH 28.1 MCHC 34.0 RDW 13.9 Plt Count 230 Neut % (Auto) 72.7 Lymph % (Auto) 10.8 L [place] % (Auto) 11.5 Eos % (Auto) 4.5 H Baso % (Auto) 0.5 Neut # (Auto) 4900 ESR Sodium Potassium Chloride Carbon Dioxide BUN Creatinine Estimated GFR BUN/Creatinine Ratio Glucose Lactate 0.7 Calcium Total Bilirubin AST ALT Alkaline Phosphatase Troponin I Total Protein Albumin Globulin Albumin/Globulin Ratio Lipase Procalcitonin < 0.05 08/06/18 05:42 WBC RBC Hgb Hct MCV MCH MCHC RDW Plt Count Neut % (Auto) Lymph % (Auto) [place] % (Auto) Eos % (Auto) Baso % (Auto) Neut # (Auto) ESR Sodium 138 Potassium 3.8 Chloride 101 Carbon Dioxide 28 BUN 14 Creatinine 0.60 L Estimated GFR > 60.0 BUN/Creatinine Ratio 23.3 H Glucose 128 H Lactate Calcium 8.4 Total Bilirubin 0.8 AST 20 ALT 36 Alkaline Phosphatase 79 Troponin I 0.020 Total Protein 5.7 L Albumin 2.9 L Globulin 2.8 Albumin/Globulin Ratio 1.0 Lipase 439 H Procalcitonin Assessment & Plan Plan: Assessment/Plan Narrative: ACUTE CHOLECYSTITIS general surgeon consulted already patient NPO. POSSIBLE PULMONARY MYCOBACTERIUM INFECTION (TB VS NON-TB) VS OTHER INFECTIOUS ETIOLOGY VS MALIGNANCY. Reverse isolation Now Sputum send daily for AFB Patient on Unasyn and Flagyl by admitting doc Patient also with a very worrisome CT scan of the chest and abdomen on admission. The CT scan shows quite a bit of busyness to the apex and bilateral upper lobe regions. Patient is an elderly male with long-standing history of smoking with chronic lung disease. The CAT scan shows a fairly severe grade emphysematous changes. A patient as described has increased risk of Mycobacterium avium complex infection. ie an elderly white male smoker with chronic lung disease. Which can result in cavitation and fairly extensive lung disease. Disseminated mycobacterium avium complex can also occur. I spoke to a stencil inspector at [facility] who reviewed the CT of the chest films and notes the possibility A patient having a bacterial pneumonia process in a pre-existing cavitary like lesion related to emphysema Or possibly an aspergilloma or possibly mycobacterium avium complex or possibly mycobacterium tuberculosis. In view of this differential the stencil inspector's notes patient should remain in respiratory isolation until the AFB stains that I have ordered or done daily and found to be negative. I also ordered additional blood cultures in special media designed to grow mycobacteria. Note that these additional blood cultures cannot be determined As negative for mycobacteria growth until after total of 6 weeks. In the meantime, as recommended by stencil inspector continue the Unasyn along with the Flagyl which may also be of course a dressing the acute cholecystitis. Patient could be discharged on Augmentin. The stencil inspector did not feel a bronchoscopy was in order at this time but did feel After the treatment as described with antibiotics a repeat CT of the chest in 6- 8 weeks could be done to determine if patient has continuous of the same abnormal findings On CT of the chest. I would recommend patient deferred to Dr. Washington the ID specialist at [facility] upon eventual discharge so that he could follow this patient regarding Images and treatment. Patient has no primary care doctor in outpatient setting that normally follows him. Please note that the fairly extensive weight loss could be related to a mycobacterium infection wether TB versus non-TB infection. Where as the tuberculous Infection can be more often associated with more dramatic weight loss then MAC infection, the MAC infection can be more insidious and show quite dramatic changes to the lung when seen in initial diagnosis. SEVERE PROTEIN CHERYL MALNUTRTION 30 lb weight loss over past several months dietary consult Consider TPN vs NGT feeding if continued poor eating habits noted after cholecystectomy CONTINUED SMOKER ADDICTION nicotine patch. Other findings on CT 08/05: Diverticulosis Large Right Inguinal Hernia. Time Spent With Patient Time with patient: Greater than 35 minutes (50 min)
[2018-08-06] MEDS: ENOXAPARIN 40 MG/0.4 ML SYRINGE SUBCUT (10:34)
[2018-08-06] MEDS: HYDROMORPHONE 1 MG INJ 0.5 MG IV (10:40)
--- NOTE | 2018-08-06 10:53 | CM.DANOTE ---
DCP: Case received, EMR reviewed. Patient in isolation, information obtained by spouse on phone in addition to medical record. DCP template completed with information currently available. Patient is a 78 year old male who admitted yesterday evening to the care of the hospitalist team. PCP: Dr. Paredes. Payer: confirmed: Medicare/[employer] for [employer]. Patient came to hospital via family vehicle with , with symptoms of abdominal pain for the last several days. Patient also has had significant weight loss. Patient is in isolation precautions to rule out possible pulmonary TB. Patient may also be having gall bladder surgery. Dr. Hargrove, Hospitalist, has been in contact with pulmonary at [facility], who feel that this could be a type of bacteria. He will remain in isolation for next few days until AFB are confirmed. Received information from over phone. stated that patient has not seen a physician in a long while, and has noted significant weight loss. She also stated that he smokes on a daily basis. Stated that he has had falls at home, uses a cane, but is pretty independent. She has been concerned about his lack of appetite. P: DCP to continue to follow closely. Patient will also be working with physical therapy as well. Treatment plan newly in process. Cinda Kramer RN/Director Global Intelligence
--- NOTE | 2018-08-06 13:40 | PC.NURSE ---
Pt short of breath on exertion. Up to bathroom with standby assist to void. Maintained respiratory precautions while ruling out TB - will take 5 days to rule out. Each am sputum to be sent for AFB. RT will collect. Pt alert and oriented. While not happy to be hospitalized, he had a feeling prior to admission that he might end up in hospital for a few days States has not been to a PCP in years. Current smoker but refused nicotine patch. O2 sats = 98% on RA. Given dilaudid IV for abdominal pain which he said has been effective.
--- NOTE | 2018-08-06 16:20 | PC.NURSE ---
Pt awake and alert lying in bed watching television. Denies pain, denies nausea. Taking sips water sparingly. Room air 95%. Occasional moist, unproductive cough. Breath sounds decreased, but clear. Follows commands appropriately. Airborne precautions observed using PAPR. Encouraged pt to call for needs.
[2018-08-06] MEDS: DEXTROSE 5%-0.45% NS 1,000 ML 100 ML IV (17:03)
[2018-08-07] MEDS: AMPICILLIN/SULBACTAM 3 GM 3 GM in SODIUM CHLORIDE 0.9% 100 ML IV ×4 (00:58→18:31)
[2018-08-07] MEDS: HYDROMORPHONE 1 MG INJ 0.5 MG IV ×5 (00:59→23:01)
[2018-08-07] MEDS: metroNIDAZOLE 500 MG/100 ML PIGGYBACK 100 MG IV ×4 (05:03→23:01)
[2018-08-07] MEDS: DEXTROSE 5%-0.45% NS 1,000 ML 100 ML IV ×2 (05:05→21:29)
[2018-08-07 05:23] VITALS: BP 167/64; PULSE 74; RESP 16; TEMP 36.7; O2SAT 97
[2018-08-07 07:50] VITALS: BP 144/73; PULSE 82; RESP 16; TEMP 36.5; O2SAT 93
[2018-08-07 09:03] VITALS: O2SAT 96
[2018-08-07 09:19] LABS: Procalcitonin < 0.05 ng/mL (<0.5)
[2018-08-07] MEDS: ENOXAPARIN 40 MG/0.4 ML SYRINGE SUBCUT (09:58)
--- NOTE | 2018-08-07 11:41 | PC.NURSE ---
Day shift: Pt left unit at approx 1135 for MRI. Off AC unit at this time. Tele is off.
[2018-08-07 12:10] VITALS: BP 170/84; PULSE 70; RESP 16; TEMP 36.8; O2SAT 94
[2018-08-07 13:36] LABS: Add Manual Diff / Slide Review NO; Basophils Percent Auto 0.4 % (0-2); Eosinophils Percent Auto 5.1 % (2-4); Hematocrit 38.7 % (41-53); Hemoglobin 12.9 g/dL (13.5-17.5); Lymphocytes Percent Auto 11.2 % (25-40); Mean Corpuscular HGB Conc 33.2 % (30-36); Mean Corpuscular Hemoglobin 27.8 PG (26-34); Mean Corpuscular Volume 83.6 fL (80-100); Neutrophils Absolute Auto 3100 /uL (3000-5900); Neutrophils Percent Auto 71.3 % (50-75); Platelet Count 254 X10^3/uL (150-400); Red Blood Cell Count 4.63 X10^6/uL (4.5-5.9); Red Cell Distribution Width 13.9 % (11.6-14.8); White Blood Cell Count 4.4 X10^3/uL (4.5-11.0)
--- NOTE | 2018-08-07 13:39 | DI.RAD.S_ITS ---
PROCEDURE: XR CHEST FOR PICC 1V INDICATIONS: Check PICC placement COMPARISON: [facility], CT, CT CHEST ABD PEL W CON, 08/05/2018, 18:03. FINDINGS: PICC was placed by the intravenous therapy team from the right side. Fluoroscopic spot film demonstrates tip of PICC in the distal SVC. Note is made of severe emphysematous change with bullous emphysema present over the upper and middle thirds of the right lung and to a lesser degree the lateral right lung base. Also, bullous emphysema can be seen, partially visualized, at the lateral left mid chest. IMPRESSION: Tip of PICC lies within the distal SVC. Chronic appearing interstitial prominence, large lung volumes, COPD, bullous emphysema as noted. Dictated by: Jose Alfredo Castellano M.D. on 08/07/2018 at 14:20 Approved by: Jose Alfredo Castellano M.D. on 08/07/2018 at 14:21
[2018-08-07 13:55] LABS: Alanine Aminotransferase 35 IU/L (21-72); Albumin 2.9 g/dL (3.5-5.0); Alkaline Phosphatase 87 U/L (38-126); Aspartate Aminotransferase 31 IU/L (17-59); Bilirubin Total 0.6 mg/dL (0.2-1.3); Blood Urea Nitrogen 9 mg/dL (9-20); Calcium 8.4 mg/dL (8.4-10.2); Carbon Dioxide 28 mmol/L (22-32); Chloride 102 mmol/L (98-107); Estimated Glomerular Filt Rate > 60.0 mL/min (>60); Glucose 109 mg/dL (80-110); HEMOLYSIS < 15 (0-50); Potassium 3.5 mmol/L (3.4-5.1); Sodium 139 mmol/L (137-145); Total Protein 5.9 g/dL (6.3-8.2)
[2018-08-07 14:02] VITALS: BMI 19.4
[2018-08-07 16:54] VITALS: BP 179/78; PULSE 79; RESP 19; TEMP 36.3; O2SAT 95
[2018-08-07] MEDS: FAT EMULSIONS 50 GM/250 ML EMULSION IV (18:00)
[2018-08-07] MEDS: AA 5 %/CALCIUM/LYTES/DEXT 20 % 1,000 ML with MULTIVITAMIN 10 ML, TRACE ELEMENTS 1 ML, P... 42.958 ML IV (18:00)
--- NOTE | 2018-08-07 18:21 | P.PN_ITS ---
Subjective Date Patient Seen: 08/07/18 Time Patient Seen: 15:19 Interval history: History of present illness Patient admitted to the hospital acute cholecystitis. General surgery consult was obtained on admission. Patient also with a very worrisome CT scan of the chest and abdomen on admission. The CT scan shows quite a bit of busyness to the apex and bilateral upper lobe regions. Patient is an elderly male with long-standing history of smoking with chronic lung disease. The CAT scan shows a fairly severe grade emphysematous changes. A patient as described has increased risk of Mycobacterium avium complex infection. ie an elderly white male smoker with chronic lung disease. Which can result in cavitation and fairly extensive lung disease. Disseminated mycobacterium avium complex can also occur. I spoke to a licensed pharmacist at [facility] who reviewed the CT of the chest films and notes the possibility A patient having a bacterial pneumonia process in a pre-existing cavitary like lesion related to emphysema Or possibly an aspergilloma or possibly mycobacterium avium complex or possibly mycobacterium tuberculosis. In view of this differential the licensed pharmacist's notes patient should remain in respiratory isolation until the AFB stains that I have ordered or done daily and found to be negative. I also ordered additional blood cultures in special media designed to grow mycobacteria. Note that these additional blood cultures cannot be determined As negative for mycobacteria growth until after total of 6 weeks. In the meantime, as recommended by licensed pharmacist continue the Unasyn along with the Flagyl which may also be of course a dressing the acute cholecystitis. Patient could be discharged on Augmentin. The licensed pharmacist did not feel a bronchoscopy was in order at this time but did feel After the treatment as described with antibiotics a repeat CT of the chest in 6- 8 weeks could be done to determine if patient has continuous of the same abnormal findings On CT of the chest. I would recommend patient deferred to Dr. Washington the ID specialist at [facility] upon eventual discharge so that he could follow this patient regarding Images and treatment. Patient has no primary care doctor in outpatient setting that normally follows him. General surgeon notes that patient could be considered for cholecystectomy once he has been cleared as not having active pulmonary TB Review of system Patient notes having no significant shortness of breath or chest pain at this time are resting No nausea Patient notes he is feeling very impatient and anxious and wants to leave the hospital. Patient is fully aware that he is in respiratory isolation and the reasons why. I did note that patient does not likely have pulmonary TB but very likely does have mycobacterium avium complex instead. Patient will need to be ruled out though for pulmonary TB before respiratory isolation can be discontinued. Exam Vital Signs (past 8 hours): - 08/07/18 12:10 08/07/18 16:54 Temperature 98.2 F 97.3 F L Pulse Rate 70 79 Respiratory Rate 16 19 Blood Pressure 170/84 H 179/78 H Pulse Oximetry 94 95 Oxygen Delivery Method Room Air Oxygen Flow Rate 0 Narrative Exam Narrative: General appearance a very cachectic elderly appearing male patient with mild respiratory distress at rest. Patient is awake and alert Psychiatric well oriented to time place person mood is pleasant affect is appropriate Respiratory fair breath sounds noted with crackles on inspiration and wheezing sounds Cardiovascular regular rate rhythm no murmurs noted +3 pulses to extremities GI soft with tenderness to the right upper quadrant to palpation positive bowel sounds are noted no bruits Neurologic no focal neurologic changes cranial nerves 2-12 grossly intact Objective Labs Result Diagrams: 08/07/18 08:17 08/07/18 08:17 Labs: Laboratory Results - last 24 hr 08/07/18 08/07/18 08/07/18 08:17 08:17 08:17 WBC 4.4 L RBC 4.63 Hgb 12.9 L Hct 38.7 L MCV 83.6 MCH 27.8 MCHC 33.2 RDW 13.9 Plt Count 254 Neut % (Auto) 71.3 Lymph % (Auto) 11.2 L [place] % (Auto) 12.0 Eos % (Auto) 5.1 H Baso % (Auto) 0.4 Neut # (Auto) 3100 Sodium 139 Potassium 3.5 Chloride 102 Carbon Dioxide 28 BUN 9 Creatinine 0.60 L Estimated GFR > 60.0 BUN/Creatinine Ratio 15.0 Glucose 109 Calcium 8.4 Total Bilirubin 0.6 AST 31 ALT 35 Alkaline Phosphatase 87 Total Protein 5.9 L Albumin 2.9 L Globulin 3.0 Albumin/Globulin Ratio 1.0 Procalcitonin < 0.05 Assessment & Plan Plan: Assessment/Plan Narrative: ACUTE CHOLECYSTITIS general surgeon consulted already patient NPO. General surgeon would like to have the respiratory precautions discontinued and the mycobacterium TB ruled out before consideration cholecystectomy POSSIBLE PULMONARY MYCOBACTERIUM INFECTION (TB VS NON-TB) VS OTHER INFECTIOUS ETIOLOGY VS MALIGNANCY. Reverse isolation continues Sputum send daily for AFB for 3 days Patient on Unasyn and Flagyl at this time Patient also with a very worrisome CT scan of the chest and abdomen on admission. The CT scan shows quite a bit of busyness to the apex and bilateral upper lobe regions. Patient is an elderly male with long-standing history of smoking with chronic lung disease. The CAT scan shows a fairly severe grade emphysematous changes. A patient as described has increased risk of Mycobacterium avium complex infection. ie an elderly white male smoker with chronic lung disease. Which can result in cavitation and fairly extensive lung disease. Disseminated mycobacterium avium complex can also occur. I spoke to a licensed pharmacist at [facility] who reviewed the CT of the chest films and notes the possibility A patient having a bacterial pneumonia process in a pre-existing cavitary like lesion related to emphysema Or possibly an aspergilloma or possibly mycobacterium avium complex or possibly mycobacterium tuberculosis. In view of this differential the licensed pharmacist's notes patient should remain in respiratory isolation until the AFB stains that I have ordered or done daily and found to be negative. I also ordered additional blood cultures in special media designed to grow mycobacteria. Note that these additional blood cultures cannot be determined As negative for mycobacteria growth until after total of 6 weeks. In the meantime, as recommended by licensed pharmacist continue the Unasyn along with the Flagyl which may also be of course a dressing the acute cholecystitis. Patient could be discharged on Augmentin. The licensed pharmacist did not feel a bronchoscopy was in order at this time but did feel After the treatment as described with antibiotics a repeat CT of the chest in 6- 8 weeks could be done to determine if patient has continuous of the same abnormal findings On CT of the chest. I would recommend patient deferred to Dr. Washington the ID specialist at [facility] upon eventual discharge so that he could follow this patient regarding Images and treatment. Patient has no primary care doctor in outpatient setting that normally follows him. Please note that the fairly extensive weight loss could be related to a mycobacterium infection wether TB versus non-TB infection. Where as the tuberculous Infection can be more often associated with more dramatic weight loss then MAC infection, the MAC infection can be more insidious and show quite dramatic changes to the lung when seen in initial diagnosis. SEVERE PROTEIN CHERYL MALNUTRTION 30 lb weight loss over past several months dietary consult PICC line with TPN started today CONTINUED SMOKER ADDICTION nicotine patch provided Other findings on CT 08/05: Diverticulosis Large Right Inguinal Hernia. Time Spent With Patient Time with patient: 25 - 35 minutes (40 min)
[2018-08-07 21:37] VITALS: BP 168/69; PULSE 83; RESP 20; TEMP 36.7; O2SAT 93
[2018-08-08] VITALS (9 sets, daily range): BP systolic 142–186; BP diastolic 67–96; PULSE 73–99; RESP 18–73; TEMP 36.3–36.8; O2SAT 91–95
[2018-08-08] MEDS: AMPICILLIN/SULBACTAM 3 GM 3 GM in SODIUM CHLORIDE 0.9% 100 ML IV ×4 (00:10→19:22)
[2018-08-08] MEDS: metroNIDAZOLE 500 MG/100 ML PIGGYBACK 100 MG IV ×4 (05:11→22:31)
[2018-08-08] MEDS: HYDROMORPHONE 1 MG INJ 0.5 MG IV ×2 (05:12→09:13)
[2018-08-08 07:07] LABS: Add Manual Diff / Slide Review NO; Basophils Percent Auto 0.5 % (0-2); Eosinophils Percent Auto 3.3 % (2-4); Hematocrit 34.2 % (41-53); Hemoglobin 11.6 g/dL (13.5-17.5); Lymphocytes Percent Auto 8.2 % (25-40); Mean Corpuscular HGB Conc 34.1 % (30-36); Mean Corpuscular Hemoglobin 27.9 PG (26-34); Mean Corpuscular Volume 81.8 fL (80-100); Monocytes Percent Auto 10.1 % (3-14); Neutrophils Absolute Auto 4300 /uL (3000-5900); Neutrophils Percent Auto 77.9 % (50-75); Platelet Count 241 X10^3/uL (150-400); Red Blood Cell Count 4.18 X10^6/uL (4.5-5.9); Red Cell Distribution Width 13.5 % (11.6-14.8); White Blood Cell Count 5.6 X10^3/uL (4.5-11.0)
[2018-08-08 07:13] LABS: Alanine Aminotransferase 31 IU/L (21-72); Albumin 2.5 g/dL (3.5-5.0); Alkaline Phosphatase 72 U/L (38-126); Aspartate Aminotransferase 20 IU/L (17-59); Bilirubin Total 0.4 mg/dL (0.2-1.3); Blood Urea Nitrogen 8 mg/dL (9-20); Calcium 7.7 mg/dL (8.4-10.2); Carbon Dioxide 29 mmol/L (22-32); Chloride 103 mmol/L (98-107); Estimated Glomerular Filt Rate > 60.0 mL/min (>60); Globulin 2.6 g/dL (1.7-4.1); Glucose 143 mg/dL (80-110); HEMOLYSIS 37 (0-50); Magnesium 1.6 mg/dL (1.6-2.3); Potassium 3.9 mmol/L (3.4-5.1); Sodium 139 mmol/L (137-145); Total Protein 5.1 g/dL (6.3-8.2)
[2018-08-08] MEDS: ENOXAPARIN 40 MG/0.4 ML SYRINGE SUBCUT (08:48)
[2018-08-08] MEDS: ONDANSETRON 4 MG/2 ML INJ IV (09:09)
--- NOTE | 2018-08-08 10:03 | PC.NURSE ---
Day shift: Pt had some nausea with small amount of emesis after producing sputum this AM. Gave IV Zofran. Also reported some SOB but SpO2 was 95% RA. Call light in reach.
--- NOTE | 2018-08-08 12:51 | P.PN_ITS ---
Subjective Date Patient Seen: 08/08/18 Time Patient Seen: 12:52 Interval history: FOLLOW UP ON APICAL CT CHEST ABNORMALITIES, BACTERIAL PNA, AND CHOLECYSTITIS Patient seen at bedside. Patient had episode of NBNB vomiting today that resoloved with Zofran. He continues to have mild SOB/wheezing and epigastric pain. No overnight events. Exam Vital Signs (past 8 hours): - 08/08/18 07:00 08/08/18 11:17 Temperature 98.3 F 97.8 F Pulse Rate 80 80 Respiratory Rate 18 19 Blood Pressure 153/81 H 142/81 H Pulse Oximetry 95 93 Oxygen Delivery Method Room Air Oxygen Flow Rate 0 Narrative Exam Narrative: General: NAD, AAOx3 HEENT: PERRLA BL Neck: Supple, no LAD CV: RRR, no murmurs Resp: Minimal wheezes appreciated all throughout. Coarse breath sounds all throughout as well GI: Tenderness to deep palpation in epigastric region MSK: normal ROM. R PICC line in place Skin: No edema, no bruising Objective Labs Result Diagrams: 08/08/18 06:45 08/08/18 06:45 Labs: Laboratory Results - last 24 hr 08/07/18 08/07/18 08/08/18 08:17 08:17 06:45 WBC 4.4 L 5.6 RBC 4.63 4.18 L Hgb 12.9 L 11.6 L Hct 38.7 L 34.2 L MCV 83.6 81.8 MCH 27.8 27.9 MCHC 33.2 34.1 RDW 13.9 13.5 Plt Count 254 241 Neut % (Auto) 71.3 77.9 H Lymph % (Auto) 11.2 L 8.2 L [place] % (Auto) 12.0 10.1 Eos % (Auto) 5.1 H 3.3 Baso % (Auto) 0.4 0.5 Neut # (Auto) 3100 4300 Sodium 139 Potassium 3.5 Chloride 102 Carbon Dioxide 28 BUN 9 Creatinine 0.60 L Estimated GFR > 60.0 BUN/Creatinine Ratio 15.0 Glucose 109 Calcium 8.4 Phosphorus Magnesium Total Bilirubin 0.6 AST 31 ALT 35 Alkaline Phosphatase 87 Total Protein 5.9 L Albumin 2.9 L Globulin 3.0 Albumin/Globulin Ratio 1.0 08/08/18 06:45 WBC RBC Hgb Hct MCV MCH MCHC RDW Plt Count Neut % (Auto) Lymph % (Auto) [place] % (Auto) Eos % (Auto) Baso % (Auto) Neut # (Auto) Sodium 139 Potassium 3.9 Chloride 103 Carbon Dioxide 29 BUN 8 L Creatinine 0.50 L Estimated GFR > 60.0 BUN/Creatinine Ratio 16.0 Glucose 143 H Calcium 7.7 L Phosphorus 3.0 Magnesium 1.6 Total Bilirubin 0.4 AST 20 ALT 31 Alkaline Phosphatase 72 Total Protein 5.1 L Albumin 2.5 L Globulin 2.6 Albumin/Globulin Ratio 1.0 Assessment & Plan Plan: Assessment/Plan Narrative: 1. Bacterial PNA - Ruling out MAC vs TB as other causes - CT chest showed Cavitary lesion with internal air fluid level in the left lung apex which should represent infectious or neoplastic process, as well as Right upper lobe and left upper lobe partially calcified masses which could represent a parenchymal scarring versus neoplastic process. Also shown emphysematous changes BL - Discussed case with Pulmonology at , who suspects bacterial pna in the cavitary lesion vs aspergilloma vs TB vs MAC. Recommend to continue Unasyn and Flagyl at this time and continue to rule out TB/MAC. - Pending special cultures for MAC rule out. 3 Sputums collected for AFB - Will continue isolation until negative AFB - Once discharged, will switch patient to augmentin and have him follow up with Dr. Washington for repeat CT chest 6-8 wks 2. Acute Cholecystitis - Improving - No leukocytosis - CT abd showed Cholelithiasis with gallbladder wall prominence. There is clinical concern for cholecystitis - Surgery consulted, will perform cholecystectomy once TB is ruled out - Continue pain management, CLD, Zofran 3. Severe Protein Calorie malnutrition - Condition improving - Continue TPN via PICC line at this time and optimize electrolytes 4. Tobacco dependance - Continue Nicotine Patch 5. Inguinal Hernia - CT abd showed Large right inguinal hernia which contains unremarkable appearing loops of small bowel - monitor
--- NOTE | 2018-08-08 16:50 | PC.NURSE ---
Addendum entered by Desirae Rivas R.N. 08/08/18 21:27: Relatively uneventful evening. Denies any further discomfort. IV, TPN and Lipids infusing as per orders w/o incidence. Call light w/in reach, bed alarm on for pt safety. Continue w/plan of care. Original Note: Pt remains in airborne precautions. Lungs w/faint expiratory rhonchi noted. SpO2 95% RA. IV D51/2NS @ 62cc/hr and TPN @ 42cc/hr infusing via pump w/o incidence. JUSTO PICC intact/patent. Call light w/in reach.
[2018-08-08] MEDS: FAT EMULSIONS 50 GM/250 ML EMULSION IV (17:43)
[2018-08-08] MEDS: HYDROMORPHONE 1 MG INJ IV (17:51)
[2018-08-08] MEDS: AA 5 %/CALCIUM/LYTES/DEXT 20 % 1,000 ML with MULTIVITAMIN 10 ML, TRACE ELEMENTS 1 ML, P... 43.125 ML IV (18:33)
[2018-08-09] VITALS (11 sets, daily range): BP systolic 140–204; BP diastolic 68–104; PULSE 66–86; RESP 18–22; TEMP 36.3–36.7; O2SAT 95–98
[2018-08-09] MEDS: AMPICILLIN/SULBACTAM 3 GM 3 GM in SODIUM CHLORIDE 0.9% 100 ML IV ×4 (00:14→23:20)
[2018-08-09] MEDS: HYDROMORPHONE 1 MG INJ 0.5 MG IV (02:25)
[2018-08-09 04:56] LABS: Add Manual Diff / Slide Review NO; Basophils Percent Auto 0.7 % (0-2); Eosinophils Percent Auto 5.1 % (2-4); Hematocrit 36.6 % (41-53); Lymphocytes Percent Auto 9.3 % (25-40); Mean Corpuscular HGB Conc 32.7 % (30-36); Mean Corpuscular Hemoglobin 27.3 PG (26-34); Mean Corpuscular Volume 83.4 fL (80-100); Monocytes Percent Auto 9.1 % (3-14); Neutrophils Absolute Auto 5700 /uL (3000-5900); Neutrophils Percent Auto 75.8 % (50-75); Platelet Count 256 X10^3/uL (150-400); Red Blood Cell Count 4.38 X10^6/uL (4.5-5.9); Red Cell Distribution Width 14.1 % (11.6-14.8); White Blood Cell Count 7.5 X10^3/uL (4.5-11.0)
[2018-08-09 05:01] LABS: Alanine Aminotransferase 35 IU/L (21-72); Albumin 2.5 g/dL (3.5-5.0); Albumin Globulin Ratio 0.9 (1.0-2.8); Alkaline Phosphatase 134 U/L (38-126); Aspartate Aminotransferase 28 IU/L (17-59); Bilirubin Total 0.3 mg/dL (0.2-1.3); Blood Urea Nitrogen 8 mg/dL (9-20); Calcium 7.7 mg/dL (8.4-10.2); Carbon Dioxide 29 mmol/L (22-32); Chloride 101 mmol/L (98-107); Estimated Glomerular Filt Rate > 60.0 mL/min (>60); Globulin 2.7 g/dL (1.7-4.1); Glucose 162 mg/dL (80-110); HEMOLYSIS < 15 (0-50); Magnesium 1.9 mg/dL (1.6-2.3); Phosphorous 2.8 mg/dL (2.3-3.7); Potassium 4.1 mmol/L (3.4-5.1); Sodium 136 mmol/L (137-145); Total Protein 5.2 g/dL (6.3-8.2)
[2018-08-09] MEDS: metroNIDAZOLE 500 MG/100 ML PIGGYBACK 100 MG IV ×4 (06:02→23:45)
--- NOTE | 2018-08-09 06:41 | PC.NURSE ---
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 Pt seems agitated that he remains in the hospital and is quite verbal about wanting to go home. Pt states that he is frustrated with not having answers about what is wrong with him. Pt's pain has improved since admission although does not have much of an appetite. Medicated with IV Dilaudid 1 time for 3-4/10 abdominal pain.
[2018-08-09] MEDS: ENOXAPARIN 40 MG/0.4 ML SYRINGE SUBCUT (08:47)
[2018-08-09] MEDS: INSULIN ASPART 100 UNIT/ML INSULN PEN SUBCUT ×3 (08:55→17:26)
[2018-08-09] MEDS: LABETALOL 20 MG/4 ML SYRINGE 10 MG IV ×2 (10:52→17:19)
--- NOTE | 2018-08-09 15:12 | PM.PN.1 ---
Subjective Date Patient Seen: 08/09/18 Time Patient Seen: 15:15 Interval history: Follow up on Apical CT chest abnormalities, Bacterial PNA, and Cholecystitis Patient seen at bedside. He is still having mild epigastric pain. He is agitated and wants to eat. Wants to go home. Feels like nothing is being done. i discussed with patient that the goals are to get 3 negative AFB sputum cultures before precautions can be lifted. Exam Vital Signs (past 8 hours): - 08/09/18 09:30 08/09/18 10:52 08/09/18 11:15 Temperature 97.5 F L Pulse Rate 86 66 Respiratory Rate 18 Blood Pressure 204/79 H 200/104 H 140/68 Pulse Oximetry 96 08/09/18 12:20 Temperature 98.1 F Pulse Rate 80 Respiratory Rate 18 Blood Pressure 165/68 H Pulse Oximetry Oxygen Delivery Method Room Air Oxygen Flow Rate 0 Narrative Exam Narrative: Exam Narrative: General: NAD, AAOx3 HEENT: PERRLA BL. Wet gargly cough Neck: Supple, no LAD CV: RRR, no murmurs Resp: Minimal wheezes appreciated all throughout. Coarse breath sounds all throughout as well GI: Tenderness to deep palpation in epigastric region MSK: normal ROM. R PICC line in place Skin: No edema, no bruising Objective Labs Result Diagrams: 08/09/18 04:30 08/09/18 04:30 Labs: Laboratory Results - last 24 hr 08/09/18 08/09/18 04:30 04:30 WBC 7.5 RBC 4.38 L Hgb 12.0 L Hct 36.6 L MCV 83.4 MCH 27.3 MCHC 32.7 RDW 14.1 Plt Count 256 Neut % (Auto) 75.8 H Lymph % (Auto) 9.3 L [place] % (Auto) 9.1 Eos % (Auto) 5.1 H Baso % (Auto) 0.7 Neut # (Auto) 5700 Sodium 136 L Potassium 4.1 Chloride 101 Carbon Dioxide 29 BUN 8 L Creatinine 0.50 L Estimated GFR > 60.0 BUN/Creatinine Ratio 16.0 Glucose 162 H Calcium 7.7 L Phosphorus 2.8 Magnesium 1.9 Total Bilirubin 0.3 AST 28 ALT 35 Alkaline Phosphatase 134 H D Total Protein 5.2 L Albumin 2.5 L Globulin 2.7 Albumin/Globulin Ratio 0.9 L Assessment & Plan Plan: Assessment/Plan Narrative: 1. Bacterial PNA - Ruling out MAC vs TB as other causes - CT chest showed Cavitary lesion with internal air fluid level in the left lung apex which should represent infectious or neoplastic process, as well as Right upper lobe and left upper lobe partially calcified masses which could represent a parenchymal scarring versus neoplastic process. Also shown emphysematous changes BL - Discussed case with Pulmonology at , who suspects bacterial pna in the cavitary lesion vs aspergilloma vs TB vs MAC. Recommend to continue Unasyn and Flagyl at this time and continue to rule out TB/MAC. - Pending special cultures for MAC rule out. -3 Sputums collected for AFB...2 are back negative. Pending 3rd - Will continue isolation until negative AFB x3 - Once discharged, will switch patient to augmentin and have him follow up with Dr. Washington for repeat CT chest 6-8 wks 2. Acute Cholecystitis - Improving - No leukocytosis - CT abd showed Cholelithiasis with gallbladder wall prominence. There is clinical concern for cholecystitis - Surgery consulted, will perform cholecystectomy once TB is ruled out - Continue pain management, CLD, Zofran 3. Severe Protein Calorie malnutrition - Condition improving - Continue TPN via PICC line at this time and optimize electrolytes 4. Tobacco dependance - Continue Nicotine Patch 5. Inguinal Hernia - CT abd showed Large right inguinal hernia which contains unremarkable appearing loops of small bowel - monitor 20 min spent evaluating and providing care for patient
[2018-08-09] MEDS: AA 5 %/CALCIUM/LYTES/DEXT 20 % 1,000 ML with MULTIVITAMIN 10 ML, TRACE ELEMENTS 1 ML, P... 43.125 ML IV (17:38)
[2018-08-09] MEDS: FAT EMULSIONS 50 GM/250 ML EMULSION IV (17:39)
--- NOTE | 2018-08-09 22:37 | PC.NURSE ---
Shift- Scheduled Labetalol 10mg changed to PRN, SBP > 170. VSS. Denies pain this shift. TPN, lipids, NS, and ABO's infusing. AFB results from 08/06 and 08/07 negative. 08/08 remains pending.
[2018-08-10] VITALS (16 sets, daily range): BP systolic 145–188; BP diastolic 71–97; PULSE 75–86; RESP 16–20; TEMP 36.3–37; O2SAT 95–98
[2018-08-10] MEDS: AMPICILLIN/SULBACTAM 3 GM 3 GM in SODIUM CHLORIDE 0.9% 100 ML IV ×4 (01:06→18:25)
[2018-08-10] MEDS: metroNIDAZOLE 500 MG/100 ML PIGGYBACK 100 MG IV ×4 (05:12→23:26)
[2018-08-10 06:36] LABS: Add Manual Diff / Slide Review NO; Alanine Aminotransferase 32 IU/L (21-72); Albumin 2.6 g/dL (3.5-5.0); Alkaline Phosphatase 103 U/L (38-126); Aspartate Aminotransferase 45 IU/L (17-59); Basophils Percent Auto 0.3 % (0-2); Bilirubin Total 0.2 mg/dL (0.2-1.3); Blood Urea Nitrogen 8 mg/dL (9-20); Calcium 7.7 mg/dL (8.4-10.2); Carbon Dioxide 29 mmol/L (22-32); Chloride 102 mmol/L (98-107); Eosinophils Percent Auto 4.8 % (2-4); Estimated Glomerular Filt Rate > 60.0 mL/min (>60); Globulin 2.6 g/dL (1.7-4.1); Glucose 173 mg/dL (80-110); HEMOLYSIS 16 (0-50); Hematocrit 36.3 % (41-53); Hemoglobin 12.2 g/dL (13.5-17.5); Lymphocytes Percent Auto 8.5 % (25-40); Mean Corpuscular HGB Conc 33.8 % (30-36); Mean Corpuscular Volume 82.9 fL (80-100); Monocytes Percent Auto 9.8 % (3-14); Neutrophils Absolute Auto 5500 /uL (3000-5900); Neutrophils Percent Auto 76.6 % (50-75); Phosphorous 2.7 mg/dL (2.3-3.7); Platelet Count 261 X10^3/uL (150-400); Potassium 3.9 mmol/L (3.4-5.1); Red Blood Cell Count 4.37 X10^6/uL (4.5-5.9); Sodium 137 mmol/L (137-145); Total Protein 5.2 g/dL (6.3-8.2); White Blood Cell Count 7.2 X10^3/uL (4.5-11.0)
--- NOTE | 2018-08-10 07:08 | PC.NURSE ---
Patient received ampicillin at 0605. Manually scanned in.
[2018-08-10] MEDS: ENOXAPARIN 40 MG/0.4 ML SYRINGE SUBCUT (09:08)
[2018-08-10] MEDS: INSULIN ASPART 100 UNIT/ML INSULN PEN SUBCUT ×3 (09:09→18:24)
--- NOTE | 2018-08-10 11:13 | CM.DPC ---
Patient's goal is to return home as soon as he can. Patient is still in isolation due to pending culture. Patient expressed boredom to staff, and wants to leave. Patient is also scheduled for surgery, mary, as well. is supportive. P: DCP to continue to follow closely and address any needs when ready to discharge. Cinda Kramer RN/Accountant Assistant
--- NOTE | 2018-08-10 13:19 | PC.NURSE ---
AM NOTE - pt is alert, some mild abd discomfort, discussed medications and pt declines tyelnol or narcotic at this time, bs dim w/expir rhonchi at upper lobes, ra 95%, karrie clear liq but dislikes repeated trays with same, brought in different clear liq to enc po, pt had apple juice this am and later med bm, tpn infusing 43ml/hr, rec'd 3rd note from [facility] and shown to who called [facility], verified ok to remove neg air flow isolation, need continue with TB serum test and cult are pending for approx 50 days for final determination.
[2018-08-10] MEDS: LABETALOL 20 MG/4 ML SYRINGE 10 MG IV ×2 (15:59→23:25)
--- NOTE | 2018-08-10 16:28 | P.PN_ITS ---
Subjective Date Patient Seen: 08/10/18 Time Patient Seen: 16:24 Interval history: Follow up on Apical CT chest abnormalities, Bacterial PNA, and Cholecystitis Patient seen at bedside. No overnight events. AFB gram stains x3 showed no mycobacterial growth, and patient's precautions were lifted. He is currently on clear liquid diet but will be NPO after midnight in anticipation for possible surgery? Patient is still complaining of abdominal pain in the epigastric region. Exam Vital Signs (past 8 hours): - 08/10/18 09:30 08/10/18 12:00 08/10/18 14:50 Temperature 97.7 F Pulse Rate 75 80 Respiratory Rate 16 Blood Pressure 188/91 H 175/83 H Pulse Oximetry 95 97 08/10/18 15:27 Temperature 98.6 F Pulse Rate 82 Respiratory Rate 20 Blood Pressure 167/97 H Pulse Oximetry 97 Oxygen Delivery Method Room Air Oxygen Flow Rate 0 Narrative Exam Narrative: General: NAD, AAOx3 HEENT: PERRLA BL. Wet gargly cough Neck: Supple, no LAD CV: RRR, no murmurs Resp: Coarse breath sounds all throughout as well. Wheezes resolved GI: Tenderness to deep palpation in epigastric region MSK: normal ROM. R PICC line in place Skin: No edema, no bruising Objective Labs Result Diagrams: 08/10/18 05:35 08/10/18 05:35 Labs: Laboratory Results - last 24 hr 08/10/18 08/10/18 05:35 05:35 WBC 7.2 RBC 4.37 L Hgb 12.2 L Hct 36.3 L MCV 82.9 MCH 28.0 MCHC 33.8 RDW 14.0 Plt Count 261 Neut % (Auto) 76.6 H Lymph % (Auto) 8.[address] [place] % (Auto) 9.8 Eos % (Auto) 4.8 H Baso % (Auto) 0.3 Neut # (Auto) 5500 Sodium 137 Potassium 3.9 Chloride 102 Carbon Dioxide 29 BUN 8 L Creatinine 0.40 L Estimated GFR > 60.0 BUN/Creatinine Ratio 20.0 Glucose 173 H Calcium 7.7 L Phosphorus 2.7 Magnesium 2.0 Total Bilirubin 0.2 AST 45 ALT 32 Alkaline Phosphatase 103 Total Protein 5.2 L Albumin 2.6 L Globulin 2.6 Albumin/Globulin Ratio 1.0 Assessment & Plan Plan: Assessment/Plan Narrative: 1. Bacterial PNA - Ruling out MAC vs TB as other causes - CT chest showed Cavitary lesion with internal air fluid level in the left lung apex which should represent infectious or neoplastic process, as well as Right upper lobe and left upper lobe partially calcified masses which could represent a parenchymal scarring versus neoplastic process. Also shown emphysematous changes BL - Discussed case with Pulmonology at , who suspects bacterial pna in the cavitary lesion vs aspergilloma vs TB vs MAC. Recommend to continue Unasyn and Flagyl at this time and continue to rule out TB/MAC. - Pending special cultures for MAC rule out. - 3 AFB gram stains are negative...pending cultures which will be finalized in about 50 days - Isolation is now lifted - Once discharged, will switch patient to augmentin and have him follow up with Dr. Washington for repeat CT chest 6-8 wks 2. Acute Cholecystitis - Improving - No leukocytosis - CT abd showed Cholelithiasis with gallbladder wall prominence. - Surgery consulted, will follow up for possible cholecystectomy - Continue CLD, Zofran 3. Severe Protein Calorie malnutrition - Condition improving - Continue TPN via PICC line at this time and optimize electrolytes 4. Tobacco dependance - Continue Nicotine Patch 5. Inguinal Hernia - CT abd showed Large right inguinal hernia which contains unremarkable appearing loops of small bowel - monitor 20 min spent evaluating and providing care for patient
[2018-08-10] MEDS: AA 5 %/CALCIUM/LYTES/DEXT 20 % 1,000 ML with MULTIVITAMIN 10 ML, TRACE ELEMENTS 1 ML, P... 42.958 ML IV (17:42)
[2018-08-10] MEDS: FAT EMULSIONS 50 GM/250 ML EMULSION IV (17:42)
--- NOTE | 2018-08-10 19:36 | PM.CN ---
History of Present Illness Date Patient Seen: 08/10/18 Time Patient Seen: 19:36 Chief complaint: bad stomach aches x9 days Reason for consult: Biliary pancreatitis Requesting provider: Huma Madrigal Narrative: Patient is a gentleman was admitted late last week with biliary pancreatitis. He had had pain since the 5th of this month. H time he would ED we get epigastric pain. He did not have any nausea or vomiting. He had never had this before. He was seen in the ER and found to have gallstones and some thickening of his stomach overlying his pancreas. The patient has severe COPD and 150 pack year history of smoking. He had a cavitary lesion is upper lobe and concern was raised by his admitting physician whether he might not have tuberculosis. Because of this we delayed any surgical intervention and treated him conservatively with antibiotics. He now has 3-AFB he has and we are seeing the patient in anticipation of removing his gallbladder. Pain has improved but not completely gone [facility] Medical History Chronic cough (Chronic) Inguinal hernia (Chronic) Reducible right inguinal hernia (Chronic) Vocal cord polyps (Resolved) Surgical History H/O inguinal hernia repair (Resolved) Social History household members: spouse Smoking Status: Current every day smoker alcohol intake: former Meds Home Medications Medication Instructions Recorded Confirmed Type No Known Home Medications 08/05/18 08/05/18 History Allergies Allergy/AdvReac Type Severity Reaction Status Date / Time No Known Drug Allergies Allergy Verified 08/05/18 17:10 Review of Systems Review of Systems Patient has no visual difficulties. He is chronically short of breath even with minimal exertion. Is gotten worse since he has been in the hospital. He says he is active at home but does get short-winded. Denies any chest pain or heart problems. No black or bloody bowel movements. No prior colonoscopy. He has had kidney stones in the past. They have passed all spontaneously passed. He had a left inguinal hernia repaired was so painful from he has refused to have a right inguinal hernia that developed about 10 years ago fixed. No seizures or blackouts. No unusual bruising or bleeding. Exam Vital Signs (past 8 hours): - 08/10/18 12:00 08/10/18 14:50 08/10/18 15:00 Temperature 97.7 F Pulse Rate 75 80 Respiratory Rate 16 Blood Pressure 188/91 H 175/83 H Pulse Oximetry 97 97 08/10/18 15:27 08/10/18 17:54 Temperature 98.6 F Pulse Rate 82 78 Respiratory Rate 20 Blood Pressure 167/97 H 145/71 H Pulse Oximetry 97 Oxygen Delivery Method Room Air Oxygen Flow Rate 0 Narrative Exam Narrative: Very thin gentleman with extensive loss of subcu fat and muscle mass. Lots of bony prominences probable moderate protein calorie malnutrition. He is in no apparent distress. Eyes are nonicteric. Neck is supple. There are no nodes in the neck or supraclavicular areas. Lungs increased expiratory phase. Distant sounds. Equal percussion. Heart regular rate and rhythm. No murmur or gallop. No heave lift or thrill. His abdomen is lax of muscle. We. Some mild epigastric tenderness but no masses or fullness. No ventral hernias appreciated. He does have a large right inguinal hernia that is easily reducible in the supine position. He is alert and oriented x3. Speech rate and content are appropriate. Objective Imaging CT scan - abdomen: My impression: Patient's stomach is quite thick and it may be related to pancreatitis but it may also be a primary problem with the stomach. Patient also has gallstones. Lungs are horribly disease with a tremendous loss of parenchyma with Bull I both large and small throughout the lung Labs Result Diagrams: 08/10/18 05:35 08/10/18 05:35 Labs: Laboratory Results - last 24 hr 08/10/18 08/10/18 05:35 05:35 WBC 7.2 RBC 4.37 L Hgb 12.2 L Hct 36.3 L MCV 82.9 MCH 28.0 MCHC 33.8 RDW 14.0 Plt Count 261 Neut % (Auto) 76.6 H Lymph % (Auto) 8.5 L [place] % (Auto) 9.8 Eos % (Auto) 4.8 H Baso % (Auto) 0.3 Neut # (Auto) 5500 Sodium 137 Potassium 3.9 Chloride 102 Carbon Dioxide 29 BUN 8 L Creatinine 0.40 L Estimated GFR > 60.0 BUN/Creatinine Ratio 20.0 Glucose 173 H Calcium 7.7 L Phosphorus 2.7 Magnesium 2.0 Total Bilirubin 0.2 AST 45 ALT 32 Alkaline Phosphatase 103 Total Protein 5.2 L Albumin 2.6 L Globulin 2.6 Albumin/Globulin Ratio 1.0 Assessment & Plan (1) Abnormal CT scan, stomach: Current visit: Yes Status: Chronic Plan: Assessment/Plan Narrative: Patient may have biliary pancreatitis. I really do not see any amylase or lipase has been drawn however this admission. I was under the impression they were elevated. The thickened gastric wall and the symptoms after eating may actually DB due to a primary stomach problem. I am beginning to wonder if the patient might be served best by an EGD and followed by amie pineda if the EGD is negative. Will discuss with Dr. Lamb. Will also discuss with the patient. I have talked to him already about removing his gallbladder and doing a laparoscopic intraoperative cholangiogram. I talked to him about the possibility of needing to do an open procedure. Risks of hernia, bleeding, infection, internal organ injury or duct injury and bile leakage discussed with him. His lungs are also great concern of ours. Will talk to him as well about an EGD.
[2018-08-10] MEDS: PANTOPRAZOLE 40 MG VIAL IV (20:59)
--- NOTE | 2018-08-10 23:43 | PC.NURSE ---
Patient is alert and oriented. Breath sounds diminished more on right than left. States he gets SOB with exertion but not at rest. RA sat is 96%. Occasional cough productive of villafuerte sputum per patient. HRR but BP elevated at 178/97; medicated with Labetolol. Denies nausea but does have some tenderness across upper abdomen and rates severity as 4/10 but tolerable; declines intervention. BT present and abdomen is soft. Currently receiving TPN + Lipids and will be NPO after 0000 for procedure at 1000 tomorrow a.m. Denies dysuria, frequency, urgency or incontinence; using urinal. Independent with mobility. Fall risk score is moderate; discussed importance to call staff when getting out of bed if experiencing any dizziness or weakness and patient verbalizes understanding.
[2018-08-11] VITALS (19 sets, daily range): BP systolic 100–197; BP diastolic 62–105; PULSE 65–97; RESP 16–20; TEMP 36.1–37.6; O2SAT 94–99; BMI 18.8
--- NOTE | 2018-08-11 | PATH_ITS ---
[facility] Accession Number: [id number] . 01 Material submitted: . PART A: RANDOM GASTRIC BIOPSY PART B: GE JUNCTION BIOPSY . 02 Diagnosis: A. Random Gastric Biopsies: Mild to moderate chronic gastritis involving fundic and antral mucosa. Negative for Helicobacter pylori by immunohistochemistry. Negative for intestinal metaplasia. Negative for dysplasia and malignancy. . B. 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 Negative for dysplasia and malignancy. Negative for squamous intraepithelial eosinophils. [facility]/08/15/2018 . 02 Electronically signed: . Waylon Jon MD, Pathologist NPI- [id number] . 01 Gross description: . Received two formalin-filled containers, both labeled with the patient's name: . A. In a container labeled random gastric, the specimen consists of multiple 0.1-0.3 cm portions of tissue, entirely submitted in cassette A. B. In a container labeled GE junction, the specimen consists of two 0.2-0.3 cm portions of tissue, entirely submitted in cassette B. ([id number]) /FRR . 02 Pathologist provided ICD-10: K22.70 . 02 CPT . 535009, 555904, [id number] Performed at: 01 [facility] [address], [place], [place] [id number] MD Silver Fajardo MD Phone: [phone] Performed at: 02 [facility] [address] [place], [place] [id number] MD Chandrakant Cerna MD Phone: [phone]
[2018-08-11] MEDS: AMPICILLIN/SULBACTAM 3 GM 3 GM in SODIUM CHLORIDE 0.9% 100 ML IV ×4 (00:40→21:54)
[2018-08-11] MEDS: metroNIDAZOLE 500 MG/100 ML PIGGYBACK 100 MG IV ×3 (05:09→18:33)
[2018-08-11] MEDS: INSULIN ASPART 100 UNIT/ML INSULN PEN SUBCUT ×2 (05:57→13:46)
[2018-08-11 06:06] LABS: Add Manual Diff / Slide Review NO; Basophils Percent Auto 0.6 % (0-2); Eosinophils Percent Auto 6.7 % (2-4); Hematocrit 38.1 % (41-53); Hemoglobin 12.8 g/dL (13.5-17.5); Mean Corpuscular HGB Conc 33.6 % (30-36); Mean Corpuscular Volume 83.3 fL (80-100); Monocytes Percent Auto 10.4 % (3-14); Neutrophils Absolute Auto 5200 /uL (3000-5900); Neutrophils Percent Auto 72.3 % (50-75); Platelet Count 260 X10^3/uL (150-400); Red Blood Cell Count 4.58 X10^6/uL (4.5-5.9); Red Cell Distribution Width 14.3 % (11.6-14.8); White Blood Cell Count 7.1 X10^3/uL (4.5-11.0)
[2018-08-11 06:14] LABS: Alanine Aminotransferase 32 IU/L (21-72); Albumin 2.7 g/dL (3.5-5.0); Alkaline Phosphatase 82 U/L (38-126); Amylase 133 U/L (30-110); Aspartate Aminotransferase 31 IU/L (17-59); Bilirubin Total 0.3 mg/dL (0.2-1.3); Blood Urea Nitrogen 8 mg/dL (9-20); Carbon Dioxide 28 mmol/L (22-32); Chloride 104 mmol/L (98-107); Estimated Glomerular Filt Rate > 60.0 mL/min (>60); Globulin 2.8 g/dL (1.7-4.1); Glucose 176 mg/dL (80-110); HEMOLYSIS < 15 (0-50); Lipase 626 U/L (23-300); Phosphorous 3.3 mg/dL (2.3-3.7); Potassium 4.2 mmol/L (3.4-5.1); Sodium 141 mmol/L (137-145); Total Protein 5.5 g/dL (6.3-8.2)
[2018-08-11 07:03] LABS: Procalcitonin < 0.05 ng/mL (<0.5)
[2018-08-11] MEDS: LABETALOL 20 MG/4 ML SYRINGE 10 MG IV ×2 (08:53→16:51)
--- NOTE | 2018-08-11 10:29 | PC.NURSE ---
patient off of unit to OR for procedure. left with tpn running.
--- NOTE | 2018-08-11 10:59 | PM.PREOP ---
Pre-operative Note Interval Note Pre-op Check: Yes History & Physical Reviewed by Physician and Yes Exam Performed Changes: No ASA Class (for procedural sedation): III
[2018-08-11] MEDS: LACTATED RINGERS 1,000 ML 100 ML IV ×2 (11:11→20:47)
--- NOTE | 2018-08-11 12:05 | PM.PN.1 ---
Subjective Date Patient Seen: 08/11/18 Time Patient Seen: 12:06 Interval history: Follow up on Apical CT chest abnormalities, Bacterial PNA, and Cholecystitis Patient seen at bedside. He is doing well. Still complaining of epigastric pain. No overnight events. He is due for EGD this morning, followed by choly if negative. No overnight events. Exam Vital Signs (past 8 hours): - 08/11/18 06:00 08/11/18 08:00 08/11/18 09:21 Temperature 98.0 F 97.9 F Pulse Rate 75 72 Respiratory Rate 18 16 Blood Pressure 156/89 H 181/93 H Pulse Oximetry 97 98 98 08/11/18 09:30 08/11/18 10:34 08/11/18 10:49 Temperature 98.3 F 99.6 F Pulse Rate 65 65 72 Respiratory Rate 18 16 Blood Pressure 163/84 H 163/84 H 164/66 H Pulse Oximetry 98 99 Oxygen Delivery Method Room Air Oxygen Flow Rate 0 Narrative Exam Narrative: General: NAD, AAOx3 HEENT: PERRLA BL. Wet gargly cough Neck: Supple, no LAD CV: RRR, no murmurs Resp: Coarse breath sounds all throughout as well. Wheezes resolved GI: Tenderness to deep palpation in epigastric region MSK: normal ROM. R PICC line in place Skin: No edema, no bruising Objective Labs Result Diagrams: 08/11/18 05:50 08/11/18 05:50 Labs: Laboratory Results - last 24 hr 08/11/18 08/11/18 08/11/18 05:50 05:50 05:50 WBC 7.1 RBC 4.58 Hgb 12.8 L Hct 38.1 L MCV 83.3 MCH 28.0 MCHC 33.6 RDW 14.3 Plt Count 260 Neut % (Auto) 72.3 Lymph % (Auto) 10.0 L [place] % (Auto) 10.4 Eos % (Auto) 6.7 H Baso % (Auto) 0.6 Neut # (Auto) 5200 Sodium 141 Potassium 4.2 Chloride 104 Carbon Dioxide 28 BUN 8 L Creatinine 0.50 L Estimated GFR > 60.0 BUN/Creatinine Ratio 16.0 Glucose 176 H Calcium 8.0 L Phosphorus 3.3 Magnesium 2.0 Total Bilirubin 0.3 AST 31 ALT 32 Alkaline Phosphatase 82 Total Protein 5.5 L Albumin 2.7 L Globulin 2.8 Albumin/Globulin Ratio 1.0 Amylase 133 H Lipase 626 H Procalcitonin < 0.05 Assessment & Plan Plan: Assessment/Plan Narrative: 1. Bacterial PNA - Ruling out MAC vs TB as other causes - CT chest showed Cavitary lesion with internal air fluid level in the left lung apex which should represent infectious or neoplastic process, as well as Right upper lobe and left upper lobe partially calcified masses which could represent a parenchymal scarring versus neoplastic process. Also shown emphysematous changes BL - Discussed case with Pulmonology at , who suspects bacterial pna in the cavitary lesion vs aspergilloma vs TB vs MAC. Recommend to continue Unasyn and Flagyl at this time and continue to rule out TB/MAC. - Pending special cultures for MAC rule out. - 3 AFB gram stains are negative...pending cultures which will be finalized in about 50 days - Isolation is now lifted - Once discharged, will switch patient to augmentin and have him follow up with Dr. Washington for repeat CT chest 6-8 wks 2. Acute Cholecystitis vs biliary pancreatitis - Improving - No leukocytosis - CT abd showed Cholelithiasis with gallbladder wall prominence. - Lipase is still in 626, amylase 133 - Surgery consulted, they believe that epigastric pain may be gastric related. Patient will go for EGD today. If negative, cholecystectomy will be considered.PP - Continue CLD, TPN, Zofran 3. Severe Protein Calorie malnutrition - Condition improving - Continue TPN via PICC line at this time and optimize electrolytes 4. Tobacco dependance - Continue Nicotine Patch 5. Inguinal Hernia - CT abd showed Large right inguinal hernia which contains unremarkable appearing loops of small bowel - monitor 21 min spent evaluating and providing care for patient
[2018-08-11] MEDS: TETRACAINE/BENZOCAINE/BUTAMBEN (CETACAINE) BOTTLE 1 SPRAY TOP (12:20)
[2018-08-11] MEDS: LIDOCAINE 4% SOLN 50 ML 20 ML TOP (12:21)
[2018-08-11] MEDS: MIDAZOLAM 5 MG/5 ML VIAL IV (12:41)
[2018-08-11] MEDS: fentaNYL 250 MCG/5 ML INJ IV (12:46)
--- NOTE | 2018-08-11 12:54 | PM.OP.ENDO ---
Operative Date/Time/Diagnoses Date of procedure: 08/11/18 Time of procedure: 12:40 Pre-op diagnosis: Abnormal CT the stomach. Epigastric pain. Post-op diagnosis: same (Mild inflammation of the GE junction. Otherwise fairly normal exam. Some edema of the wall of the stomach) Procedure & Clinicians Study performed: EGD with cold biopsy Same procedure as scheduled: Yes Indications: Abnormal CT with epigastric pain and postprandial pain Surgeon: Abelardo Hester Procedure Notes SCOAP/Timeout: Performed Procedure in detail: The patient had topical anesthetic applied to oropharynx. She was placed in left lateral decubitus position and underwent IV sedation directed by the surgeon consisting of fentanyl and Versed. A bite block was inserted and the scope was advanced through it into the esophagus. The esophagus was unremarkable. GE junction was noted at 42 cm from the incisors. It was mildly inflamed.. The stomach insufflated well. There were no lesions seen in the body, antrum or at the incisura. The wall seemed a bit edematous but there were no visible lesions. The pyloric channel was edematous the patent. The duodenum was unremarkable to the 4th part. The scope was brought back into the stomach and retroflexed. The proximal stomach normal without evidence of hiatal hernia. The scope was straightened and brought out through the esophagus again. Biopsies were taken of the inflamed distal GE junction. No other lesions were seen. The scope was removed and the patient tolerated the procedure well. Scope withdrawal time: Not applicable Sedation minutes: 12 Findings: other findings (Mild inflammation of the GE junction. Edema of the wall of the stomach.) Specimen(s): other (Random stomach and GE junction biopsies) Complications: none Recommendations: Other recommendation (Treatment anchored Damion) Follow up: as needed Disposition: PACU
--- NOTE | 2018-08-11 15:03 | PC.NURSE ---
Pt is A and O x 4, VSS, hypertensive without Rx. Back to unit at approx 1314. Pt denies pain. Pt states that he would like to go home. Follow up care plan to follow.
[2018-08-11] MEDS: AA 5 %/CALCIUM/LYTES/DEXT 20 % 1,000 ML with MULTIVITAMIN 10 ML, TRACE ELEMENTS 1 ML, P... 42.958 ML IV (18:28)
[2018-08-12] VITALS (9 sets, daily range): BP systolic 156–167; BP diastolic 73–98; PULSE 72–99; RESP 16–20; TEMP 36.2–36.8; O2SAT 94–97
[2018-08-12] MEDS: metroNIDAZOLE 500 MG/100 ML PIGGYBACK 100 MG IV ×4 (01:01→20:11)
--- NOTE | 2018-08-12 01:37 | PC.NURSE ---
Addendum entered by Annamaria Dover R.N. 08/12/18 06:16: Slept at intervals due to having to get up to urinate and waking when needing to scan name band for medication administration. Awake this morning and anxiously anticipating watching [place]oug[place] play on TV. States pain is 2/10 and declines intervention. BP 162/92 so Labetalol not needed this morning. Original Note: Patient is alert and oriented. Breath sounds with expiratory wheezes anteriorly and inspiratory/expiratory rhonchi and very diminished breath sounds posteriorly; RA sat 97%. HRR. BP remains elevated at 167/98. Denies nausea but still with some upper abdominal tenderness with 2/10 severity; much better than when I came in. Currently on TPN due to poor nutritional status. Uncertain if patient will be returning to OR tomorrow so will maintain NPO status after 0000 until clarified in a.m.; patient verbalizes understanding and agrees. BT present and abdomen is soft. Denies urinary problems and is getting up independently to use the urinal. Independent with mobility. Fall risk score is moderate.
[2018-08-12] MEDS: AMPICILLIN/SULBACTAM 3 GM 3 GM in SODIUM CHLORIDE 0.9% 100 ML IV ×4 (02:55→21:18)
[2018-08-12 05:35] LABS: Add Manual Diff / Slide Review NO; Basophils Percent Auto 0.4 % (0-2); Eosinophils Percent Auto 7.8 % (2-4); Hematocrit 41.3 % (41-53); Hemoglobin 13.4 g/dL (13.5-17.5); Lymphocytes Percent Auto 10.2 % (25-40); Mean Corpuscular HGB Conc 32.4 % (30-36); Mean Corpuscular Hemoglobin 27.3 PG (26-34); Mean Corpuscular Volume 84.4 fL (80-100); Neutrophils Absolute Auto 4800 /uL (3000-5900); Neutrophils Percent Auto 72.6 % (50-75); Platelet Count 164 X10^3/uL (150-400); Red Blood Cell Count 4.89 X10^6/uL (4.5-5.9); Red Cell Distribution Width 14.2 % (11.6-14.8); White Blood Cell Count 6.6 X10^3/uL (4.5-11.0)
[2018-08-12] MEDS: LACTATED RINGERS 1,000 ML 100 ML IV ×2 (05:35→21:18)
[2018-08-12] MEDS: INSULIN ASPART 100 UNIT/ML INSULN PEN SUBCUT ×3 (06:06→18:50)
[2018-08-12 07:34] LABS: Alanine Aminotransferase 31 IU/L (21-72); Albumin 2.9 g/dL (3.5-5.0); Alkaline Phosphatase 76 U/L (38-126); Aspartate Aminotransferase 22 IU/L (17-59); Bilirubin Total 0.4 mg/dL (0.2-1.3); Blood Urea Nitrogen 9 mg/dL (9-20); Calcium 8.3 mg/dL (8.4-10.2); Carbon Dioxide 30 mmol/L (22-32); Chloride 102 mmol/L (98-107); Estimated Glomerular Filt Rate > 60.0 mL/min (>60); Globulin 2.8 g/dL (1.7-4.1); Glucose 163 mg/dL (80-110); HEMOLYSIS < 15 (0-50); Magnesium 1.7 mg/dL (1.6-2.3); Phosphorous 3.5 mg/dL (2.3-3.7); Potassium 4.4 mmol/L (3.4-5.1); Sodium 137 mmol/L (137-145); Total Protein 5.7 g/dL (6.3-8.2)
[2018-08-12] MEDS: ENOXAPARIN 40 MG/0.4 ML SYRINGE SUBCUT (08:26)
--- NOTE | 2018-08-12 12:38 | PM.PN.1 ---
Subjective Date Patient Seen: 08/12/18 Time Patient Seen: 12:38 Interval history: Patient without any new complaints. Denies any chest pain or shortness of breath. Continues to have somewhat productive cough. No subjective fever or chills. Abdominal pain persists in the epigastric region but he only rates it a 2/10 currently. No acholic stools, dark brown urine, or jaundice. Denies any pain or discomfort from yesterday's EGD. Exam Vital Signs (past 8 hours): - 08/12/18 05:54 08/12/18 07:44 08/12/18 11:28 Temperature 97.8 F 98.2 F 97.2 F L Pulse Rate 99 H 72 87 Respiratory Rate 16 18 20 Blood Pressure 162/92 H 156/82 H 160/73 H Pulse Oximetry 97 97 97 Oxygen Delivery Method Room Air Oxygen Flow Rate 0 Narrative Exam Narrative: Thin elderly male in no acute distress lying comfortably in bed watching television. Alert oriented x3. Tolerating some clear liquids by mouth currently. Remains afebrile and otherwise hemodynamically stable Sclera nonicteric Copious coarse rhonchi bilaterally Abdomen soft, nondistended, no masses. No hepatomegaly. No ascites. He is mildly tender in the right upper quadrant but certainly with no Carlos sign, guarding, or rebound tenderness. Extremities show no clubbing, cyanosis, or edema Objective Labs Result Diagrams: 08/12/18 05:25 08/12/18 Unknown Labs: Laboratory Results - last 24 hr 08/12/18 08/12/18 05:25 Unknown WBC 6.6 RBC 4.89 Hgb 13.4 L Hct 41.3 MCV 84.4 MCH 27.3 MCHC 32.4 RDW 14.2 Plt Count 164 Neut % (Auto) 72.6 Lymph % (Auto) 10.2 L [place] % (Auto) 9.0 Eos % (Auto) 7.8 H Baso % (Auto) 0.4 Neut # (Auto) 4800 Sodium 137 Potassium 4.4 Chloride 102 Carbon Dioxide 30 BUN 9 Creatinine 0.50 L Estimated GFR > 60.0 BUN/Creatinine Ratio 18.0 Glucose 163 H Calcium 8.3 L Phosphorus 3.5 Magnesium 1.7 Total Bilirubin 0.4 AST 22 ALT 31 Alkaline Phosphatase 76 Total Protein 5.7 L Albumin 2.9 L Globulin 2.8 Albumin/Globulin Ratio 1.0 Assessment & Plan Plan: Assessment/Plan Narrative: 78-year-old male with biliary pancreatitis that is markedly improved but he still has evidence of cholecystitis. EGD was unremarkable for obvious gastric pathology other than some mild inflammation. I therefore spoke with him today about proceeding tomorrow morning with laparoscopic cholecystectomy and intraoperative cholangiography. Technical details of the procedure were discussed. Risks, benefits, alternatives were explained. Risks including but not limited to anesthesia, respiratory failure in light of his COPD, pneumonia, infection, pain, scars, need to convert open procedure, need for drains, exacerbation of pancreatitis, retained common duct stone, need for endoscopic procedures such as ERCP, liver injury, major vascular injury, gastric injury, duodenal injury, small-bowel injury, colon injury, bile duct injury, bile leak, and need for further major surgery were all discussed in detail. All questions were answered to his satisfaction, and he voiced understanding. Consent was placed on the chart. We will proceed as above. Orders were written.
--- NOTE | 2018-08-12 15:26 | PM.PN.1 ---
Subjective Date Patient Seen: 08/12/18 Time Patient Seen: 15:27 Interval history: Follow up on Apical CT chest abnormalities, Bacterial PNA, and Cholecystitis Patient seen at bedside. Patient is doing well. He is still complaining of mild epigastric pain, intermittent. Does not have much appetite. No acute overnight events. Patient went for EGD yesterday, during which time he was found to have edema of the wall of the stomach, and mild inflammation of the GE junction. Patient is scheduled to go for cholecystectomy tomorrow. Exam Vital Signs (past 8 hours): - 08/12/18 07:44 08/12/18 11:28 Temperature 98.2 F 97.2 F L Pulse Rate 72 87 Respiratory Rate 18 20 Blood Pressure 156/82 H 160/73 H Pulse Oximetry 97 97 Oxygen Delivery Method Room Air Oxygen Flow Rate 0 Narrative Exam Narrative: General: NAD, AAOx3 HEENT: PERRLA BL. Wet gargly cough Neck: Supple, no LAD CV: RRR, no murmurs Resp: Coarse breath sounds all throughout. Good aeration GI: Tenderness to deep palpation in epigastric region MSK: normal ROM. R PICC line in place Skin: No edema, no bruising Objective Labs Result Diagrams: 08/12/18 05:25 08/12/18 Unknown Labs: Laboratory Results - last 24 hr 08/12/18 08/12/18 05:25 Unknown WBC 6.6 RBC 4.89 Hgb 13.4 L Hct 41.3 MCV 84.4 MCH 27.3 MCHC 32.4 RDW 14.2 Plt Count 164 Neut % (Auto) 72.6 Lymph % (Auto) 10.2 L [place] % (Auto) 9.0 Eos % (Auto) 7.8 H Baso % (Auto) 0.4 Neut # (Auto) 4800 Sodium 137 Potassium 4.4 Chloride 102 Carbon Dioxide 30 BUN 9 Creatinine 0.50 L Estimated GFR > 60.0 BUN/Creatinine Ratio 18.0 Glucose 163 H Calcium 8.3 L Phosphorus 3.5 Magnesium 1.7 Total Bilirubin 0.4 AST 22 ALT 31 Alkaline Phosphatase 76 Total Protein 5.7 L Albumin 2.9 L Globulin 2.8 Albumin/Globulin Ratio 1.0 Assessment & Plan Plan: Assessment/Plan Narrative: 1. Bacterial PNA - Ruling out MAC vs TB as other causes - CT chest showed Cavitary lesion with internal air fluid level in the left lung apex which should represent infectious or neoplastic process, as well as Right upper lobe and left upper lobe partially calcified masses which could represent a parenchymal scarring versus neoplastic process. Also shown emphysematous changes BL - Discussed case with Pulmonology at , who suspects bacterial pna in the cavitary lesion vs aspergilloma vs TB vs MAC. Recommend to continue Unasyn and Flagyl at this time and continue to rule out TB/MAC. - Pending special cultures for MAC rule out. - 3 AFB gram stains are negative...pending cultures which will be finalized in about 50 days - Isolation is now lifted - Once discharged, will switch patient to augmentin and have him follow up with Dr. Washington for repeat CT chest 6-8 wks 2. Acute Cholecystitis vs biliary pancreatitis - Improving - No leukocytosis - Patient will go for cholecystectomy tomorrow 3. Severe Protein Calorie malnutrition - Condition improving - Continue TPN via PICC line at this time and optimize electrolytes 4. Tobacco dependance - Continue Nicotine Patch 5. Inguinal Hernia - CT abd showed Large right inguinal hernia which contains unremarkable appearing loops of small bowel - monitor 20 min spent evaluating and providing care for patient
[2018-08-12] MEDS: AA 5 %/CALCIUM/LYTES/DEXT 20 % 1,000 ML with MULTIVITAMIN 10 ML, TRACE ELEMENTS 1 ML, P... 43.125 ML IV (18:49)
[2018-08-12] MEDS: FAT EMULSIONS 50 GM/250 ML EMULSION IV (18:50)
[2018-08-13] VITALS (24 sets, daily range): BP systolic 98–197; BP diastolic 47–127; PULSE 67–91; RESP 15–26; TEMP 36.3–37.7; O2SAT 89–99; BMI 18.1
--- NOTE | 2018-08-13 | PATH_ITS ---
[facility] Accession Number: [id number] . 01 Material submitted: . GALLBLADDER . 02 Diagnosis: Gallbladder: Cholelithiasis with associated chronic cholecystitis. Single benign reactive lymph node. MRV/08/16/2018 . 02 Electronically signed: . Waylon Jon MD, Pathologist NPI- [id number] . 01 Gross description: . Received in formalin, labeled gallbladder, is an opened gallbladder (length-8.2 cm, diameter-2.7 cm) with villafuerte-purple smooth and shiny serosa and a patent cystic duct. A possible lymph node (1.2 x 1.1 x 0.4 cm) is identified. The lumen contains pierre yellow solid smooth multifaceted friable calculi (6.8 x 4.5 x 1.2 cm in aggregate) with keli crystalline cut surfaces. The mucosa is brown smooth and flat. The wall is up to 0.2 cm thick. No nodules, masses or lesions are identified. Section code: (A1) cystic duct resection margin and two serial sections from the body; (A2) two longitudinal sections from the fundus; (A3) one bisected lymph node. ([id number]) /[facility] . 02 Pathologist provided ICD-10: K80.64 . 02 CPT . 235574 Performed at: 01 [facility] [address] [place] [address], [place], [place] [id number] MD Silver Fajardo MD Phone: [phone] Performed at: 02 [facility] [address] [place], [place] [id number] MD Chandrakant Cerna MD Phone: [phone]
--- NOTE | 2018-08-13 | DI.RAD.S_ITS ---
PROCEDURE: XR CHOLANGIOGRAM OPERATIVE INDICATIONS: S/P T-TUBE PLACEMENT COMPARISON: None. FINDINGS: Biliary ducts: Contrast was injected through a T-tube within the common bile duct. There is some extravasation of contrast likely the superior aspect of the tube. A filling defect is visualized within the central bile duct on the images labeled 1_3 and 1_4 suggesting the presence of a nonobstructing central calculus. Duodenum: Contrast flows promptly through the sphincter of Oddi into the duodenum, which appears normal in caliber. IMPRESSION: 1. Findings suspicious for nonobstructing choledocholithiasis. 2. Extravasation of contrast at the superior aspect of the T-tube. This may represent bile duct injury. Dictated by: Sonja Gerber M.D. on 08/13/2018 at 13:08 Approved by: Sonja Gerber M.D. on 08/13/2018 at 13:11
--- NOTE | 2018-08-13 | DI.RAD.S_ITS ---
PROCEDURE: XR CHOLANGIOGRAM OPERATIVE INDICATIONS: LAP KARY COMPARISON: None. FINDINGS: Biliary ducts: The surgeon injected contrast into the biliary ducts after cannulation of the cystic duct stump. Visualized intra- and extrahepatic bile ducts are normal in caliber, without strictures. A large filling defect is present within the central common bile duct suggesting the presence of a nonobstructing stone. There are also likely multiple subcentimeter stones layered within the dependent portion of the bile duct near the ampulla. No evidence for iatrogenic ductal injury. Duodenum: Contrast flows promptly through the sphincter of Oddi into the duodenum, which appears normal in caliber. IMPRESSION: 1. Status post cholecystectomy with large stone in the common bile duct and probable multiple small stones as well. These findings were discussed with Dr. Lamb at 10:41 AM on 08/13/18. Dictated by: Sonja Gerber M.D. on 08/13/2018 at 10:39 Approved by: Sonja Gerber M.D. on 08/13/2018 at 10:42
[2018-08-13] MEDS: LABETALOL 20 MG/4 ML SYRINGE 10 MG IV ×2 (00:07→06:07)
--- NOTE | 2018-08-13 00:25 | PC.NURSE ---
Addendum entered by Annamaria Dover R.N. 08/13/18 06:19: BP elevated at 191/127; medicated with Labetalol. Denies headache or SOB although states he did feel a little dizzy earlier this morning. Reminded to call for assist if feeling dizzy when needing to get up to bathroom; verbalizes understanding. Original Note: Patient is alert and oriented. Breath sounds improved but still very diminished in right lower lobe; RA sat 97%. HRR but elevated BP at 179/80 so medicated with Labetalol. Denies nausea. silo tender across upper abdomen with severity of 2/10 but declines intervention. NPO status for surgery in a.m. and is receiving TPN + Lipids. BT present and abdomen is soft. Voiding per urinal and denies any problems. Independent with mobility. Discussed MD order for SCD's and patient declines to have them put on so reminded to ankle wave when awake. Fall risk score is moderate so patient reminded to call for assist if feeling dizzy, unsteady or lightheaded when getting up; verbalizes agreement.
[2018-08-13] MEDS: metroNIDAZOLE 500 MG/100 ML PIGGYBACK 100 MG IV ×4 (01:10→18:43)
[2018-08-13] MEDS: AMPICILLIN/SULBACTAM 3 GM 3 GM in SODIUM CHLORIDE 0.9% 100 ML IV ×3 (03:12→21:11)
[2018-08-13] MEDS: INSULIN ASPART 100 UNIT/ML INSULN PEN SUBCUT ×2 (06:15→18:41)
[2018-08-13 07:20] LABS: Add Manual Diff / Slide Review NO; Basophils Percent Auto 0.4 % (0-2); Eosinophils Percent Auto 6.9 % (2-4); Hematocrit 39.3 % (41-53); Lymphocytes Percent Auto 9.6 % (25-40); Mean Corpuscular HGB Conc 33.1 % (30-36); Mean Corpuscular Hemoglobin 27.3 PG (26-34); Mean Corpuscular Volume 82.3 fL (80-100); Neutrophils Absolute Auto 5100 /uL (3000-5900); Neutrophils Percent Auto 72.1 % (50-75); Platelet Count 308 X10^3/uL (150-400); Red Blood Cell Count 4.78 X10^6/uL (4.5-5.9); Red Cell Distribution Width 14.2 % (11.6-14.8)
[2018-08-13 07:44] LABS: Blood Urea Nitrogen 9 mg/dL (9-20); Calcium 8.3 mg/dL (8.4-10.2); Carbon Dioxide 27 mmol/L (22-32); Chloride 103 mmol/L (98-107); Estimated Glomerular Filt Rate > 60.0 mL/min (>60); Glucose 193 mg/dL (80-110); HEMOLYSIS < 15 (0-50); Potassium 4.2 mmol/L (3.4-5.1); Sodium 137 mmol/L (137-145)
[2018-08-13] MEDS: LACTATED RINGERS 1,000 ML 42 ML IV ×2 (08:52→09:59)
[2018-08-13] MEDS: CEFAZOLIN 2 GM/100 ML FROZ.PIGGY IV (09:02)
--- NOTE | 2018-08-13 09:03 | PC.NURSE ---
Day shift: Pt off unit at approx 0830 for surgery. Disconnected from IV and TPN. VS ok but hypertension remains. Will await return and then continue to monitor.
--- NOTE | 2018-08-13 09:37 | SUR.OPER ---
Supine on padded OR bed, head on pillow, safety belt at thigh, left arm padded and tucked at side. Right arm secured on padded arm oard <90 degrees abduction. Legs uncrossed. Padded footboard in place. Tape over blanket to secure lower legs.
[2018-08-13] MEDS: IOPAMIDOL 50 ML VIAL INJ (09:47)
[2018-08-13] MEDS: BUPIVACAINE 0.5% (PF) VIAL 30 ML INJ (09:48)
[2018-08-13] MEDS: LIDOCAINE 1% W/EPI INJ INJ (09:55)
--- NOTE | 2018-08-13 12:03 | PC.NURSE ---
Day shift: Pt remains off unit at this time 1203.
--- NOTE | 2018-08-13 13:20 | PC.NURSE ---
Day shift: Pt will be going to room 106 in the unit. Will not be returning to this writers care today. His personal belongings are in room 106 as well as hospital meds and IV pole w/ TPN and fluids still hung prior to his surgery.
[2018-08-13 13:25] LABS: QuantiFERON TB NEGATIVE (Negative)
[2018-08-13] MEDS: HYDROMORPHONE 2 MG INJ 0.5 MG IV ×2 (13:40→13:45)
--- NOTE | 2018-08-13 13:42 | SUR.PHASEI ---
arrived with airway, o2 placed via nasal cannula, airway out, pt breathing now w/o assistance. awake, follows commands. c/0 6/10 pain to abdomen, medicated with Dilaudid.
--- NOTE | 2018-08-13 14:16 | PM.PN.1 ---
Subjective Date Patient Seen: 08/13/18 Time Patient Seen: 14:16 Interval history: Follow up on Apical CT chest abnormalities, Bacterial PNA, and Cholecystitis Patient seen at bedside. He just came back from operating room and is now under ICU care. He went in for laparascopic cholecystectomy but converted to open procedure,as there was stone lodged in common bile duct, non obstructive. Gall bladder was removed but stone removal was unsuccessful. Patient tolerated procedure well. He is currently complaining of mild pain in his abdomen. Denies nausea/vomiting. Denies diarrhea/constipation Exam Vital Signs (past 8 hours): - 08/13/18 06:43 08/13/18 06:48 08/13/18 07:48 Temperature Pulse Rate 69 69 Respiratory Rate Blood Pressure 172/74 H 172/74 H Pulse Oximetry 96 08/13/18 08:08 08/13/18 08:42 08/13/18 13:11 Temperature 97.5 F L 98.7 F 97.8 F Pulse Rate 73 70 67 Respiratory Rate 18 18 25 H Blood Pressure 108/79 107/47 L Pulse Oximetry 98 99 98 08/13/18 13:16 08/13/18 13:22 08/13/18 13:26 Temperature 97.8 F Pulse Rate 67 78 82 Respiratory Rate 21 26 H 26 H Blood Pressure 98/47 L 122/71 137/95 H Pulse Oximetry 98 98 96 08/13/18 13:41 08/13/18 13:49 Temperature 98 F Pulse Rate 85 86 Respiratory Rate 20 24 Blood Pressure 165/71 H 134/72 Pulse Oximetry 96 95 Oxygen Delivery Method Nasal Cannula Oxygen Flow Rate 3 Narrative Exam Narrative: General: NAD, AAOx3 HEENT: PERRLA BL, dry mucous membranes Neck: Supple, no LAD CV: RRR, no murmurs Resp: Coarse breath sounds all throughout. Good aeration GI: Abdominal dressings post procedure are in place with drain tube MSK: normal ROM. R PICC line in place Skin: No edema, no bruising Objective Labs Result Diagrams: 08/13/18 05:00 08/13/18 07:00 Labs: Laboratory Results - last 24 hr 08/10/18 08/13/18 08/13/18 13:45 05:00 07:00 WBC 7.0 RBC 4.78 Hgb 13.0 L Hct 39.3 L MCV 82.3 MCH 27.3 MCHC 33.1 RDW 14.2 Plt Count 308 Neut % (Auto) 72.1 Lymph % (Auto) 9.6 L [place] % (Auto) 11.0 Eos % (Auto) 6.9 H Baso % (Auto) 0.4 Neut # (Auto) 5100 Sodium 137 Potassium 4.2 Chloride 103 Carbon Dioxide 27 BUN 9 Creatinine 0.50 L Estimated GFR > 60.0 BUN/Creatinine Ratio 18.0 Glucose 193 H Calcium 8.3 L TB Test Mitogen - Nil 1.03 TB Test Antigen - Nil < 0.01 TB Test (QFT) Negative Assessment & Plan Plan: Assessment/Plan Narrative: 1. Acute Cholecystitis with biliary pancreatitis - S/p open laperotomy and cholecystectomy - CBD stone was detected and unable to retrieve...patient will need ERCP in the near future - Will continue NPO, TPN nutrition, and start .9NS @100cc/hr - Dilaudid PRN IV for pain control, Zofran PRN for nausea 2. Bacterial PNA - Ruling out MAC vs TB as other causes - CT chest showed Cavitary lesion with internal air fluid level in the left lung apex which should represent infectious or neoplastic process, as well as Right upper lobe and left upper lobe partially calcified masses which could represent a parenchymal scarring versus neoplastic process. Also shown emphysematous changes BL - Discussed case with Pulmonology at , who suspects bacterial pna in the cavitary lesion vs aspergilloma vs TB vs MAC. Recommend to continue Unasyn and Flagyl at this time and continue to rule out TB/MAC. - Will be unable to send cultures for MAC as the growth media never arrived to the hospital...Will need outpatient follow up with Pulmonary for arrangement of that - 3 AFB gram stains are negative...pending cultures which will be finalized in about 50 days - Continue Unasyn and Flagyl. Once discharged, will switch patient to augmentin and have him follow up with Dr. Washington for repeat CT chest 6-8 wks 3. Severe Protein Calorie malnutrition - Condition improving - Continue TPN via PICC line at this time and optimize electrolytes - Continue IVF as patient seems to be dehydrated 4. Tobacco dependance - Continue Nicotine Patch 5. Inguinal Hernia - CT abd showed Large right inguinal hernia which contains unremarkable appearing loops of small bowel - monitor 20 min spent evaluating and providing care for patient
--- NOTE | 2018-08-13 14:28 | P.OP_ITS ---
Operative Date/Time/Diagnoses Date of procedure: 08/13/18 Time of procedure: 14:04 Pre-op diagnosis: Gallstone pancreatitis Post-op diagnosis: other (Gallstone pancreatitis with acute cholecystitis and retained choledocholithiasis) Procedure & Clinicians Procedure: 1. Attempted laparoscopic intraoperative cholangiography and cholecystectomy converted to open cholecystectomy 2. Common bile duct exploration with placement of size 20 T-tube and completion intraoperative cholangiography 3. Unsuccessful extraction of distal common bile duct stone Same procedure as scheduled: Yes Indications: 78-year-old male who presented with gallstone pancreatitis. His case is also complicated by significant COPD and pulmonary cavitating nodules initially thought to be possibly consistent with tuberculosis. He was placed in isolation and treated for such. Tests of ventrally showed no evidence of TB and precautions were lifted. Patient's pancreatitis slowly improved with bowel rest, IV fluid resuscitation, antibiotics, and TPN support. Further imaging including CT scan of the abdomen was suspicious for possible gastric wall thickening and potential neoplasm. Therefore EGD was done initially which showed no evidence of any disease or neoplasms in the stomach. His liver function tests improved dramatically with a normal bilirubin. Therefore a window of opportunity existed for cholecystectomy. He was recommended to undergo laparoscopic cholecystectomy with intraoperative cholangiography. Surgeon: Tato Lamb Click Yes if Unassisted: Yes Anesthesia Type: General Operative Notes Findings: 1. Markedly thickened and edematous gallbladder consistent with acute on chronic cholecystitis 2. Gallbladder completely packed with multiple gallstones 3. Mildly dilated cystic duct with intraoperative cholangiography showing dilated common bile duct and proximal hepatic ducts 4. Intraoperative cholangiography consistent with choledocholithiasis in the distal common bile duct just above the ampulla of Vater, not obstructing 5. Completion cholangiography after placement of T-tube demonstrating persistent stone but not obstructing. Closure Type: primary Specimen(s): other (Gallbladder and gallstones) Implants & Drains: 1. #10 Dhruv-Gutierrez drain in right upper quadrant to bulb suction 2. Size 20 T-tube in common bile duct placed to gravity drainage Applied: drain(s) (As above) Estimated Blood Loss (mL): 100 Blood products transfused: none Procedure in detail: After obtaining informed consent the patient was brought to the operating room and placed supine on the table. After satisfactory induction of anesthesia arms were tucked to his side and all pressure points were padded appropriately. Abdomen was prepped and draped in usual sterile fashion after placing a Bacon catheter into the urinary bladder. SCOAP time out was performed per standard protocol. A 1 :1 mixture of 1% lidocaine with 1 : 100,000 epinephrine and 0.5% plain Marcaine was injected in the skin and subcutaneous tissue at the superior aspect of the umbilicus for postoperative analgesia. Vertical midline incision was created at the superior aspect of the umbilicus for a distance of 2 cm with 11 scalpel blade. Blunt dissection revealed the rectus fascia which was divided in the midline with 11 scalpel blade. Fascia was secured with interrupted 0 Vicryl suture superiorly and inferiorly. Underlying peritoneum was entered between hemostats using Metzenbaum scissors under direct visualization. Blunt 12 mm Tinoco trocar was inserted and a carbon dioxide pneumoperitoneum was created. Abdomen was visually explored. Findings are as above. Patient was placed in reverse Trendelenburg position. Under direct laparoscopic visualization a 5 mm epigastric trocar was placed to the right of the falciform ligament after achieving local anesthesia. In a similar fashion to individual 5 mm trocars were placed in the right lateral abdomen. Ratcheted grasper was used to secure the fundus of the gallbladder and retracted superiorly and medially over the liver edge. There were multiple adhesions between the omentum, duodenum, and gallbladder which were taken down bluntly using a Maryland dissector. Second ratchet grasper was used to secure the infundibulum of the gallbladder and retract it inferiorly and laterally. Meticulous dissection in the triangle of Calot was performed with the Maryland dissect her and a Kittner dissect care. Junction of the cystic duct and gallbladder was clearly visualized. Duct was cleared of overlying material. I should note that these adhesions were quite dense due to the inflammatory process. Critical view of the liver bed through the avascular window between the cystic duct, infundibulum of the gallbladder, and cystic artery was identified. Single clip was placed at the junction of the duct and the gallbladder and the duct was partially incised with scissors. Cholangiogram catheter was then inserted and held in place with an Burton clamp. Patient was returned supine and intraoperative cholangiography was performed. Findings are as above. Unfortunately no wire stone baskets or biliary Julia catheters are available to perform laparoscopic common bile duct exploration. I therefore elected to complete the laparoscopic cholecystectomy portion of the procedure and leave the retained common duct stone in place with plans for ERCP postoperatively. However, as we attempted to control the cystic duct proximally with clips it became clear that a 5 mm clip would be in adequate for the dilated duct. Therefore the epigastric trocar was converted from a 5 mm device to a 11 mm device and a 10 mm disposable clip 911 telecommunicator was brought onto the field. Laparoscopic visualization was not ideal and 3 clips were placed on the cystic duct below the ductotomy site. After full visualization of the area was achieved it became apparent that the clips were not traversing the width of the duct in its entirety. I therefore felt that the cystic duct was clearly not adequately controlled and was very likely to leak postoperatively. With no ability to adequately control the cystic duct laparoscopically I decided to convert to open procedure to safely complete the procedure. I also elected to do common bile duct exploration in the setting of an open cholecystectomy. I felt this may spare the patient further procedures, such as ERCP. Laparoscopic instruments were removed. Patient was returned to supine position. Right subcostal incision was created with 10 Scalpel blade incorporating the epigastric trocar site. Bovie was used to achieve hemostasis and carried the dissection down to the rectus fascia. Anterior posterior sheaths were divided along with the intervening muscle fibers. Surgeons fingers were inserted through the epigastric trocar incision to ensure that no underlying structures were injured. Bookwalter retractor was used to provide exposure. Fundus of the gallbladder was secured with a Riri clamp. Infundibulum of the gallbladder was secured with a 2nd Riri clamp. Bovie was used to remove the gallbladder from the hepatic bed. The gallbladder actually was densely adherent to the liver and actually fused with the liver near the fundus. There was absolutely no plane at this level. Eventually the gallbladder was liberated a left attached by the cystic artery and cystic duct. Artery was encircled with right angle clamp and 2 0 silk ties were used to secure the structure which was then subsequently divided between the ties. In a similar fashion the cystic duct was controlled. In fact, it became apparent that the previously applied clips on the cystic duct had actually dislodged thereby verifying that the duct was not adequately controlled laparoscopically. After applying a 2 0 silk and an 0 silk tie to the cystic duct stump attention was turned to common bile duct exploration. Two individual stay sutures of 3 0 chromic were placed along the medial and lateral aspects of the duct below the cystic duct itself. Choledochotomy was performed between the stitches with a 11 scalpel blade followed by Boston scissors. Duct was then explored initially with red rubber catheter irrigation using copious amounts of sterile saline solution. No stone was noted to be retrieved. Rey stone forceps were then employed and palpation of the duodenum revealed a forceps to be at the ampulla of Vater. Again, however, despite multiple attempts I was unable to retrieve the stone with the forceps. Further palpation was unsuccessful in allowing me to simply milk the stone proximally for retrieval. Again, I had no stone baskets or biliary Julia catheter available at this institution. Bakes dilators were used in sequential fashion to it potentially dilate the distal duct and sphincter of Oddi. Size 4 dilator was able to pass through the sphincter into the duodenum which was verified by palpation. However, I was unable to get any larger dilators to pass readily. Again the duct was irrigated with red rubber catheter and saline without return of any obvious stone debris. A pediatric Bacon was brought onto the operative field as attempted to use as biliary Julia but I could not get it to pass easily to the distal part of the duct. Despite multiple sweeps with the balloon inflated no stone was retrieved. At this point I did not have any other options for duct exploration other then lateral duodenostomy which I thought was not indicated in this case. In fact, the risks of such maneuver, in my opinion outweigh the potential benefits. Patient remains a candidate for postoperative ERCP. I therefore placed a size 20 T-Tube into the common bile duct and close the duct over the T-tube using interrupted 3 0 chromic sutures. Duct was flushed with saline. There was a minimal amount of leakage around the suture line under pressure. Completion cholangiogram through the T-tube was then completed. Unfortunately, findings are as above with a retained stone still in place. However, there was no evidence of any duct obstruction. Ten [place]an Dhruv-Gutierrez drain was placed through 1 of the lateral 5 mm trocar sites and secured to the skin with 3 0 nylon suture. The T-tube was extracted through the 2nd 5 mm trocar site in the right lateral abdomen. T-tube was secured with 2 individual interrupted 3 0 nylon sutures to the skin. Right upper quadrant was irrigated and noted to be hemostatic. The liver bed had been rendered hemostatic with the Bovie and Gel- Foam. No evidence of any other significant ongoing bile duct leaks or abnormalities. Therefore instruments were removed and wound irrigated. Hemostasis was again verified. Posterior sheath was closed with running 0 Vicryl suture. Anterior sheath was closed with 2 individual running 1 Prolene sutures tied in the midline. Subcutaneous tissue was irrigated noted to be hemostatic. Skin was closed with alpa. The supraumbilical incision was closed at the fascia with the previously placed 0 Vicryl suture. Skin was closed with alpa as well. Sterile dressings were applied. Dhruv-Gutierrez drain was placed to bulb suction. T-Tube was placed to gravity bag. Anesthesia was reversed the patient extubated in the operating room. He was taken recovery in stable condition. Complications: other (Retained common bile duct stone with inability to clear the duct surgically) Condition: stable Disposition: PACU Plan for aftercare: 1. Admit to intensive care unit for observation due to patient's significant COPD and potential postoperative respiratory compromise 2. Will eventually require ERCP. Will discuss with Gastroenterology Services tomorrow.
[2018-08-13] MEDS: SODIUM CHLORIDE 0.9% 1,000 ML 100 ML IV (14:54)
--- NOTE | 2018-08-13 15:06 | SUR.PHASEI ---
late entry: report called to chey jean transported on o2 and cardiac moniters to [facility] and left in stable condition.
--- NOTE | 2018-08-13 15:08 | SUR.PHASEI ---
addendum: saul score on 7 dr chino aware. pt being monitered in [facility].
--- NOTE | 2018-08-13 15:09 | PC.NURSE ---
day note pt recieved from PACU, awake alert and oriented. Pt reports 1/10 pain, no nausea. Pt c/o constantly feeling urge to void. O2 titrated from 3 to 1 liters. in to visit.
[2018-08-13] MEDS: HYDROMORPHONE PCA 6 MG/30 ML PCA.VIAL IV ×2 (17:32→21:58)
[2018-08-13] MEDS: AA 5 %/CALCIUM/LYTES/DEXT 20 % 1,000 ML with MULTIVITAMIN 10 ML, TRACE ELEMENTS 1 ML, P... 42.958 ML IV (18:39)
--- NOTE | 2018-08-13 21:22 | PC.NURSE ---
PT AGREEABLE TO USE OF DILAUDID DATA DESIGNER WHICH HAS BEEN EFECTIVE FOR HIS PAIN POST OP TO ABD- DRESSING DRY AND INTACT- SHADOW STRIKE THRU IS OUTLINED, T-TUBE DRAIN WITH BILIOUS DRAINAGE AND KENDRA WITH SERO-SANG - NS CONTINUES AT 100CC/H AND TPN CONTINUES VIA JUSTO PICC LINE-PLACED ON 2L NC O2 DUE TO DECREASED SPO2 DURING SLEEP PRESENT SPO2 98%-LUNGS REMAIN COARSE THROUGHOUT
[2018-08-14] VITALS (15 sets, daily range): BP systolic 123–158; BP diastolic 60–85; PULSE 77–122; RESP 16–20; TEMP 36.9–37.5; O2SAT 92–98
[2018-08-14] MEDS: metroNIDAZOLE 500 MG/100 ML PIGGYBACK 100 MG IV ×4 (01:10→18:20)
[2018-08-14] MEDS: AMPICILLIN/SULBACTAM 3 GM 3 GM in SODIUM CHLORIDE 0.9% 100 ML IV ×4 (02:55→20:38)
[2018-08-14 05:13] LABS: Add Manual Diff / Slide Review NO; Basophils Percent Auto 0.4 % (0-2); Eosinophils Percent Auto 3.8 % (2-4); Hematocrit 35.4 % (41-53); Hemoglobin 11.7 g/dL (13.5-17.5); Lymphocytes Percent Auto 6.8 % (25-40); Mean Corpuscular HGB Conc 32.9 % (30-36); Mean Corpuscular Hemoglobin 27.5 PG (26-34); Mean Corpuscular Volume 83.5 fL (80-100); Monocytes Percent Auto 9.8 % (3-14); Neutrophils Absolute Auto 8300 /uL (3000-5900); Neutrophils Percent Auto 79.2 % (50-75); Platelet Count 302 X10^3/uL (150-400); Red Blood Cell Count 4.24 X10^6/uL (4.5-5.9); Red Cell Distribution Width 14.4 % (11.6-14.8); White Blood Cell Count 10.5 X10^3/uL (4.5-11.0)
[2018-08-14 05:17] LABS: Alanine Aminotransferase 51 IU/L (21-72); Albumin 2.4 g/dL (3.5-5.0); Albumin Globulin Ratio 0.9 (1.0-2.8); Alkaline Phosphatase 62 U/L (38-126); Aspartate Aminotransferase 66 IU/L (17-59); Bilirubin Total 0.4 mg/dL (0.2-1.3); Blood Urea Nitrogen 14 mg/dL (9-20); Calcium 7.8 mg/dL (8.4-10.2); Carbon Dioxide 30 mmol/L (22-32); Chloride 101 mmol/L (98-107); Estimated Glomerular Filt Rate > 60.0 mL/min (>60); Globulin 2.6 g/dL (1.7-4.1); Glucose 143 mg/dL (80-110); HEMOLYSIS < 15 (0-50); Potassium 4.7 mmol/L (3.4-5.1); Sodium 137 mmol/L (137-145)
[2018-08-14] MEDS: INSULIN ASPART 100 UNIT/ML INSULN PEN SUBCUT ×2 (06:12→11:49)
[2018-08-14] MEDS: HYDROMORPHONE PCA 6 MG/30 ML PCA.VIAL IV (06:14)
--- NOTE | 2018-08-14 06:39 | PC.NURSE ---
Patient A/O x3, used 2mg Dilaudid PHOTONICS ENGINEERING TECHNICIAN for shift with effective pain control, splinting abdomen as needed, repositioning independently, denies nausea, bowel sounds absent. 100ml dark bile drainage from T-tube, 25ml seros-sang drainage from KENDRA. SR, PACs, VSS, SpO2 >94% on 2L NC.
--- NOTE | 2018-08-14 07:50 | PM.PN.1 ---
Subjective Date Patient Seen: 08/14/18 Time Patient Seen: 07:50 Interval history: Follow up on Acute Cholecystitis/pancreatitis, Apical CT chest abnormalities, and Bacterial PNA Patient seen at bedside. Doing well. Still has some abdominal pain that is helping with FOAM CUTTING SUPERVISOR dilaudid pump. No overnight events. Exam Vital Signs (past 8 hours): - 08/14/18 00:00 08/14/18 04:12 08/14/18 04:54 Temperature 99.3 F Pulse Rate 77 Respiratory Rate 18 Blood Pressure 123/73 Pulse Oximetry 96 98 97 08/14/18 04:59 Temperature 99.4 F Pulse Rate 77 Respiratory Rate 18 Blood Pressure 139/60 Pulse Oximetry 97 Oxygen Delivery Method Nasal Cannula Oxygen Flow Rate 2 Narrative Exam Narrative: General: NAD, AAOx3 HEENT: PERRLA BL, dry mucous membranes Neck: Supple, no LAD CV: RRR, no murmurs Resp: Coarse breath sounds all throughout. Good aeration GI: Abdominal dressings post procedure are in place with drain tube MSK: normal ROM. R PICC line in place Skin: No edema, no bruising Objective Labs Result Diagrams: 08/14/18 04:42 08/14/18 04:42 Labs: Laboratory Results - last 24 hr 08/10/18 08/13/18 08/14/18 13:45 14:20 04:42 WBC 10.5 RBC 4.24 L Hgb 11.7 L Hct 35.4 L MCV 83.5 MCH 27.5 MCHC 32.9 RDW 14.4 Plt Count 302 Neut % (Auto) 79.2 H Lymph % (Auto) 6.8 L Knox % (Auto) 9.8 Eos % (Auto) 3.8 Baso % (Auto) 0.4 Neut # (Auto) 8300 H Sodium Potassium Chloride Carbon Dioxide BUN Creatinine Estimated GFR BUN/Creatinine Ratio Glucose Calcium Total Bilirubin AST ALT Alkaline Phosphatase Total Protein Albumin Globulin Albumin/Globulin Ratio Nasal Screen MRSA (PCR) Negative for mrsa TB Test Mitogen - Nil 1.03 TB Test Antigen - Nil < 0.01 TB Test (QFT) Negative 08/14/18 04:42 WBC RBC Hgb Hct MCV MCH MCHC RDW Plt Count Neut % (Auto) Lymph % (Auto) Knox % (Auto) Eos % (Auto) Baso % (Auto) Neut # (Auto) Sodium 137 Potassium 4.7 Chloride 101 Carbon Dioxide 30 BUN 14 Creatinine 0.70 Estimated GFR > 60.0 BUN/Creatinine Ratio 20.0 Glucose 143 H Calcium 7.8 L Total Bilirubin 0.4 AST 66 H ALT 51 Alkaline Phosphatase 62 Total Protein 5.0 L Albumin 2.4 L Globulin 2.6 Albumin/Globulin Ratio 0.9 L Nasal Screen MRSA (PCR) TB Test Mitogen - Nil TB Test Antigen - Nil TB Test (QFT) Assessment & Plan Plan: Assessment/Plan Narrative: 1. Acute Cholecystitis with biliary pancreatitis - S/p open laperotomy and cholecystectomy - CBD stone was detected and unable to retrieve...patient will need ERCP in the near future - Will continue NPO, TPN nutrition, and .9NS @100cc/hr...Will refer to surgery for advancing nutrition - Dilaudid PRN IV for pain control, Zofran PRN for nausea 2. Bacterial PNA - Ruling out MAC vs TB as other causes - CT chest showed Cavitary lesion with internal air fluid level in the left lung apex which should represent infectious or neoplastic process, as well as Right upper lobe and left upper lobe partially calcified masses which could represent a parenchymal scarring versus neoplastic process. Also shown emphysematous changes BL - Discussed case with Pulmonology at , who suspects bacterial pna in the cavitary lesion vs aspergilloma vs TB vs MAC. Recommend to continue Unasyn and Flagyl at this time and continue to rule out TB/MAC. - Will be unable to send cultures for MAC as the growth media never arrived to the hospital...Will need outpatient follow up with Pulmonary for arrangement of that - 3 AFB gram stains are negative...pending cultures which will be finalized in about 50 days - Continue Unasyn and Flagyl. Once discharged, will switch patient to augmentin and have him follow up with Dr. Washington for repeat CT chest 6-8 wks 3. Severe Protein Calorie malnutrition - Condition improving - Continue TPN via PICC line at this time and optimize electrolytes - Continue IVF as patient seems to be dehydrated 4. Tobacco dependance - Continue Nicotine Patch 5. Inguinal Hernia - CT abd showed Large right inguinal hernia which contains unremarkable appearing loops of small bowel - monitor 6. COPD - Duonebs PRN 20 min spent evaluating and providing care for patient
[2018-08-14] MEDS: ENOXAPARIN 40 MG/0.4 ML SYRINGE SUBCUT (08:09)
[2018-08-14] MEDS: SODIUM CHLORIDE 0.9% 1,000 ML 100 ML IV ×2 (08:09→23:39)
--- NOTE | 2018-08-14 09:13 | CM.DPC ---
DCP Cont: Met with , jose g Warner, who was just visiting patient. Met with patient in room. Surgery complete. He is anxious to return home with his . Alert and oriented, pleasant. P: Patient's goal is to return home with when stable. Cinda Kramer RN/Yard Coupler
--- NOTE | 2018-08-14 13:25 | P.PN_ITS ---
Subjective Date Patient Seen: 08/14/18 Time Patient Seen: 13:22 Interval history: Patient complaining of incisional pain in the right upper quadrant. No nausea or vomiting. No flatus or bowel movement. Bacon catheter remains in place. Denies chest pain or shortness of breath. Exam Vital Signs (past 8 hours): - 08/14/18 08:00 08/14/18 08:30 08/14/18 11:48 Temperature 98.7 F 98.5 F Pulse Rate 88 87 Respiratory Rate 20 20 Blood Pressure 135/65 142/66 H Pulse Oximetry 96 95 94 08/14/18 12:00 Temperature Pulse Rate Respiratory Rate Blood Pressure Pulse Oximetry 94 Oxygen Delivery Method Nasal Cannula Oxygen Flow Rate 1 Narrative Exam Narrative: Thin male in no acute distress. Alert oriented x3. is at the bedside for my entire visit Remains afebrile with no tachycardia. Sinus rhythm. Blood pressure is normal. He has adequate urine output of clear yellow urine in the Bacon bag. He has seda bile in the T-tube drain as anticipated. Serosanguineous fluid is noted within the Dhruv-Gutierrez drain but no bile. Output has been relatively minimal. Dressing is clean, dry, and intact. Abdomen is soft and nondistended. He is appropriately tender. Extremities show no clubbing, cyanosis, or edema Objective Labs Result Diagrams: 08/14/18 04:42 08/14/18 04:42 Labs: Laboratory Results - last 24 hr 08/10/18 08/13/18 08/14/18 13:45 14:20 04:42 WBC 10.5 RBC 4.24 L Hgb 11.7 L Hct 35.4 L MCV 83.5 MCH 27.5 MCHC 32.9 RDW 14.4 Plt Count 302 Neut % (Auto) 79.2 H Lymph % (Auto) 6.8 L Dickey % (Auto) 9.8 Eos % (Auto) 3.8 Baso % (Auto) 0.4 Neut # (Auto) 8300 H Sodium Potassium Chloride Carbon Dioxide BUN Creatinine Estimated GFR BUN/Creatinine Ratio Glucose Calcium Total Bilirubin AST ALT Alkaline Phosphatase Total Protein Albumin Globulin Albumin/Globulin Ratio Nasal Screen MRSA (PCR) Negative for mrsa TB Test Mitogen - Nil 1.03 TB Test Antigen - Nil < 0.01 TB Test (QFT) Negative 08/14/18 04:42 WBC RBC Hgb Hct MCV MCH MCHC RDW Plt Count Neut % (Auto) Lymph % (Auto) Dickey % (Auto) Eos % (Auto) Baso % (Auto) Neut # (Auto) Sodium 137 Potassium 4.7 Chloride 101 Carbon Dioxide 30 BUN 14 Creatinine 0.70 Estimated GFR > 60.0 BUN/Creatinine Ratio 20.0 Glucose 143 H Calcium 7.8 L Total Bilirubin 0.4 AST 66 H ALT 51 Alkaline Phosphatase 62 Total Protein 5.0 L Albumin 2.4 L Globulin 2.6 Albumin/Globulin Ratio 0.9 L Nasal Screen MRSA (PCR) TB Test Mitogen - Nil TB Test Antigen - Nil TB Test (QFT) Assessment & Plan Plan: Assessment/Plan Narrative: 78-year-old male postoperative day 1 from open cholecystectomy with common bile duct exploration. Pain has been an issue this morning so his SAFETY GROOVING MACHINE OPERATOR has been adjusted to provide for basal rate. He needs to be out of bed and ambulate as much as possible. Discontinue the Bacon. Continue T-tube in drain under current regimen. I explained the intraoperative findings and the need for the drains to be in place for many weeks. At some point we will have to have the retained common duct stone extracted, likely through ERCP in a delayed manner. Again, I discussed this with him. There is nothing urgent at this stage given that the common bile duct is well controlled. I will allow him a clear liquid diet today as well. He may transfer from the ICU to the regular surgical floor from my perspective. All questions were answered to his satisfaction, and he voiced understanding. Orders were written.
--- NOTE | 2018-08-14 14:12 | PC.NURSE ---
Day Shift Note Patient reported pain uncontrolled to abdomen, 06/02, and stating that I can't even move without it hurting. Instructed on use of PYROTECHNIC ASSEMBLER and on using pillow to assist in splinting - pain remained uncontrolled so basal dose of 0.5 mg/hr on Dilaudid PYROTECHNIC ASSEMBLER was initiated about [address] Madrigal's order. Pt reports pain is still present but getting better. Logrolled 2 person assist up to chair with FWW. Did well but did experience SOB that resolved with rest. Oxygen sats 88% on RA at rest, currently on 1L NC with sats 95%. Exp. wheezes auscultated - pt declines breathing treatment at this time. Dressing to abdomen C/D/I - first dressing change to be done 08/[address] Lamb. T tube and KENDRA drains patent and draining. Bacon in place and draining clear keli urine. Call light within reach, using appropriately to make needs known.
[2018-08-14] MEDS: HYDROMORPHONE PCA 6 MG/30 ML PCA.VIAL 2.5 MG IV ×2 (14:34→20:41)
--- NOTE | 2018-08-14 16:37 | PC.NURSE ---
mayur note pt reports pain in abd is managed with DEPUTY HEAD. Encouraged DEPUTY HEAD use, use DEPUTY HEAD when pain level is small. Reinforced use of IS, pt achieving 1808-1479 ml volumes. Faint serous shadow drainage seen on abd drsg.
[2018-08-14] MEDS: AA 5 %/CALCIUM/LYTES/DEXT 20 % 1,000 ML with MULTIVITAMIN 10 ML, TRACE ELEMENTS 1 ML 42.125 ML IV (18:05)
[2018-08-14] MEDS: FAT EMULSIONS 50 GM/250 ML EMULSION IV (18:05)
--- NOTE | 2018-08-14 18:45 | PC.NURSE ---
Addendum entered by Nancy Agudelo R.N. 08/14/18 22:53: Obtained order for Cardiac/Tele and Lopressor x 1 5mg IV. Original Note: Addendum entered by Nancy Agudelo R.N. 08/14/18 22:30: Patient sleeping between care, arouses easily. Noted with increased HR, between 110-120 at rest, increased with 120-130 with activity. Noted to be sustained. No c/o chest pain or dizziness. Notified Dr. Avalos regarding change in HR increased. MD will call this RN at ext. [phone] after chart review. Patient remains asymptomatic. Awaiting for further orders. Original Note: [id number]. Park shift note: Patient transferred from ICU to AC via accompanied by RN and DISTRIBUTION SALES MANAGER. Patient transferred from to bed with FWW, required 2PA. IVF infusing, TPN, and Dilaudid via double lumen PICC line. Received on O2 at 1L via NC, O2 sat 89-90%, noted with increased WOB and accessory muscle use. O2 increased at 2L due to desaturation and increased WOB. O2 sat 92-94% with 2L, breathing effort improved. Large dressing to mid abdomen with shadowing to distal left area, serous. T tube bilibag, draining dark bilious drainage, and KENDRA with small amount serous fluid. No c/o pain or nausea. Verbalized understanding of proper use of Dilaudid HOSPITAL HOUSEKEEPER. IS at bedside, educated regarding importance of IS. Using urinal independently. , call light within reach, calls appropriately for staff assist.
[2018-08-15] VITALS (11 sets, daily range): BP systolic 142–164; BP diastolic 72–97; PULSE 82–148; RESP 18–20; TEMP 36.2–37; O2SAT 92–97
[2018-08-15] MEDS: METOPROLOL TARTRATE 5 MG/5 ML INJ IV ×2 (00:27→20:19)
[2018-08-15] MEDS: metroNIDAZOLE 500 MG/100 ML PIGGYBACK 100 MG IV ×4 (00:44→20:22)
--- NOTE | 2018-08-15 01:06 | PC.NURSE ---
Patient is alert and oriented. Breath sounds diminished right more than left but CTA. On oxygen at 2L/min per NC with sat of 94%. HRR but tachycardic with rate up to 120's; medicated with Metoprolol and not HR down in the 80's. On telemetry and reading was ST w/occasional PVC's. Denies nausea. BT very hypoactive but patient states he has passed flatus. Dressing to abdomen is intact with shadow drainage noted on lateral side of dressing. KENDRA compressed with serosanguinous fluid in bulb. T tube to gravity with brown fluid noted. Is able to turn but prefers to lie on back. Has been incontinent due to urinary urgency but did void in urinal at this time; urine is dark keli. Wearing bilateral SCD's. States pain is 2/10 incisional pain but tolerable; exacerbated by cough and encouraged to splint and use DESKTOP ENGINEER. (in addition to continuous infusion). Fall risk score is moderate; bed alarm is activated.
[2018-08-15] MEDS: AMPICILLIN/SULBACTAM 3 GM 3 GM in SODIUM CHLORIDE 0.9% 100 ML IV ×4 (02:49→23:08)
[2018-08-15 05:43] LABS: Add Manual Diff / Slide Review NO; Basophils Percent Auto 0.4 % (0-2); Eosinophils Percent Auto 1.7 % (2-4); Hematocrit 35.4 % (41-53); Hemoglobin 11.8 g/dL (13.5-17.5); Mean Corpuscular HGB Conc 33.4 % (30-36); Mean Corpuscular Hemoglobin 27.9 PG (26-34); Mean Corpuscular Volume 83.4 fL (80-100); Monocytes Percent Auto 10.9 % (3-14); Neutrophils Absolute Auto 8500 /uL (3000-5900); Platelet Count 306 X10^3/uL (150-400); Red Blood Cell Count 4.24 X10^6/uL (4.5-5.9); Red Cell Distribution Width 14.2 % (11.6-14.8); White Blood Cell Count 10.7 X10^3/uL (4.5-11.0)
[2018-08-15 05:52] LABS: BUN Creatinine Ratio 21.7 (6-22); Blood Urea Nitrogen 13 mg/dL (9-20); Calcium 7.9 mg/dL (8.4-10.2); Carbon Dioxide 31 mmol/L (22-32); Chloride 99 mmol/L (98-107); Estimated Glomerular Filt Rate > 60.0 mL/min (>60); Glucose 138 mg/dL (80-110); HEMOLYSIS < 15 (0-50); Potassium 4.4 mmol/L (3.4-5.1); Sodium 135 mmol/L (137-145)
[2018-08-15] MEDS: INSULIN ASPART 100 UNIT/ML INSULN PEN SUBCUT ×3 (06:26→18:06)
[2018-08-15] MEDS: HYDROMORPHONE PCA 6 MG/30 ML PCA.VIAL 2.5 MG IV ×2 (06:28→14:37)
[2018-08-15] MEDS: ENOXAPARIN 40 MG/0.4 ML SYRINGE SUBCUT (09:14)
--- NOTE | 2018-08-15 13:48 | P.PN_ITS ---
Subjective Date Patient Seen: 08/15/18 Time Patient Seen: 13:45 Interval history: Follow up on Acute Cholecystitis/pancreatitis, Apical CT chest abnormalities, and Bacterial PNA Patient seen at bedside. Doing well. He is tolerating clear liquid diet well. No over night events. Since basal dilaudid bolus has been added, he is feeling much better Exam Vital Signs (past 8 hours): - 08/15/18 06:33 08/15/18 07:00 08/15/18 09:10 Temperature 98.6 F Pulse Rate 82 Respiratory Rate 18 Blood Pressure 150/82 H Pulse Oximetry 97 95 95 08/15/18 10:11 08/15/18 11:40 Temperature Pulse Rate 91 H Respiratory Rate 20 Blood Pressure 164/84 H Pulse Oximetry 96 92 Oxygen Delivery Method Room Air Oxygen Flow Rate 2 Narrative Exam Narrative: General: NAD, AAOx3 HEENT: PERRLA BL, dry mucous membranes Neck: Supple, no LAD CV: RRR, no murmurs Resp: Coarse breath sounds all throughout. Good aeration GI: Abdominal dressings post procedure are in place with drain tube MSK: normal ROM. R PICC line in place Skin: No edema, no bruising Objective Labs Result Diagrams: 08/15/18 05:24 08/15/18 05:24 Labs: Laboratory Results - last 24 hr 08/15/18 08/15/18 05:24 05:24 WBC 10.7 RBC 4.24 L Hgb 11.8 L Hct 35.4 L MCV 83.4 MCH 27.9 MCHC 33.4 RDW 14.2 Plt Count 306 Neut % (Auto) 80.0 H Lymph % (Auto) 7.0 L Montour % (Auto) 10.9 Eos % (Auto) 1.7 L Baso % (Auto) 0.4 Neut # (Auto) 8500 H Sodium 135 L Potassium 4.4 Chloride 99 Carbon Dioxide 31 BUN 13 Creatinine 0.60 L Estimated GFR > 60.0 BUN/Creatinine Ratio 21.7 Glucose 138 H Calcium 7.9 L Assessment & Plan Plan: Assessment/Plan Narrative: 1. Acute Cholecystitis with biliary pancreatitis - S/p open laperotomy and cholecystectomy - CBD stone was detected and unable to retrieve...patient will need ERCP in the near future - Will continue CLD and TPN nutrition...Will refer to surgery for advancing nutrition - Dilaudid PRN IV for pain control, Zofran PRN for nausea 2. Bacterial PNA - Ruling out MAC vs TB as other causes - CT chest showed Cavitary lesion with internal air fluid level in the left lung apex which should represent infectious or neoplastic process, as well as Right upper lobe and left upper lobe partially calcified masses which could represent a parenchymal scarring versus neoplastic process. Also shown emphysematous changes BL - Discussed case with Pulmonology at , who suspects bacterial pna in the cavitary lesion vs aspergilloma vs TB vs MAC. Recommend to continue Unasyn and Flagyl at this time and continue to rule out TB/MAC. - Will be unable to send cultures for MAC as the growth media never arrived to the hospital...Will need outpatient follow up with Pulmonary for arrangement of that - 3 AFB gram stains are negative...pending cultures which will be finalized in about 50 days - Continue Unasyn and Flagyl. Once discharged, will switch patient to augmentin and have him follow up with Dr. Washington for repeat CT chest 6-8 wks 3. Severe Protein Calorie malnutrition - Condition improving - Continue TPN via PICC line at this time and optimize electrolytes - Continue IVF as patient seems to be dehydrated 4. Tobacco dependance - Continue Nicotine Patch 5. Inguinal Hernia - CT abd showed Large right inguinal hernia which contains unremarkable appearing loops of small bowel - monitor 6. COPD - Duonebs PRN 20 min spent evaluating and providing care for patient
[2018-08-15] MEDS: SODIUM CHLORIDE 0.9% 1,000 ML 100 ML IV (16:59)
[2018-08-15 17:05] LABS: Magnesium 1.7 mg/dL (1.6-2.3)
[2018-08-15] MEDS: AA 5 %/CALCIUM/LYTES/DEXT 20 % 1,000 ML with MULTIVITAMIN 10 ML, TRACE ELEMENTS 1 ML 42.125 ML IV (18:05)
--- NOTE | 2018-08-15 18:27 | PC.NURSE ---
Addendum entered by Lyndsay Hyatt R.N. 08/15/18 20:57: pt suddenly felt the need to sit up and try to stand at bedside around 1845. HR increased and bounced from 120's-155. Patient only sat up at edge of bed and HR still read at 130-150's. scallop dredger provider (Fito) made aware and asked to monitor for another 30minutes. During the 30min ICU called several times regarding pt's HR. ICU confirmed tele reading in fib flutter with a ton of PVC's; provider made aware. Provider than ordered a one time now dose of 5mg metoprolol, IV, and for a BNP with Mag to be drawn STAT. Patient responded well to the IV metoprolol and HR has been in high 80's for the last 20 minutes. Original Note: EVES patient drowsy, but responds to voice and touch. Oriented x3, and mildly confused (short-term memory deficit). Dr Lamb changed T-Tube and KENDRA drain dressings. Transverse abdominal incision has alpa and is open to air, umbilicus has some midline with alpa and open to air. TPN was ~20 minutes late due to not being mixed and on the floor at the ordered time. NS running at 100/hr. Patient mixed incontinent due to urgency issues as the patient states. Patient utilizing CUTTING AND CREASING PRESS OPERATOR for 5/10 pain. Tele reading NSR. Lungs diminished with a soft rub auscultated in RL posterior base. CGB 133 at 1800 and student nurse administered 1U insulin with instructor.
--- NOTE | 2018-08-15 19:29 | P.PN_ITS ---
Subjective Date Patient Seen: 08/15/18 Time Patient Seen: 19:25 Interval history: Patient complaining of some pain but not as severe as yesterday. SUPPORTIVE EMPLOYMENT CASE MANAGER is currently controlling his symptoms. No nausea or vomiting. No flatus or bowel movement as yet. No dysuria. Tolerating some clear liquids by mouth. Denies chest pain or shortness of breath. Exam Vital Signs (past 8 hours): - 08/15/18 11:40 08/15/18 15:00 08/15/18 15:42 Temperature 98 F Pulse Rate 91 H 98 H Respiratory Rate 20 18 Blood Pressure 164/84 H Pulse Oximetry 92 94 97 Oxygen Delivery Method Nasal Cannula Oxygen Flow Rate 0.5 Narrative Exam Narrative: Patient seen and examined with the attending nursing staff Alert oriented x3. Resting comfortably in bed at the time of my visit Sclera nonicteric Neck is supple Chest shows copious coarse rhonchi bilaterally. Few expiratory wheezes. No crackles. Abdomen mildly distended but not tympanitic. He is appropriately tender to palpation. No guarding or rebound. Otherwise soft on examination. Wounds are clean, dry, and intact. No erythema or ecchymoses. No hematoma or seroma. Drain sites are clean as well. T-Tube is collecting seda bile as anticipated. Dhruv-Gutierrez drain is collecting serosanguineous fluid only. Output is minimal. Objective Labs Result Diagrams: 08/15/18 05:24 08/15/18 05:24 Labs: Laboratory Results - last 24 hr 08/15/18 08/15/18 05:24 05:24 WBC 10.7 RBC 4.24 L Hgb 11.8 L Hct 35.4 L MCV 83.4 MCH 27.9 MCHC 33.4 RDW 14.2 Plt Count 306 Neut % (Auto) 80.0 H Lymph % (Auto) 7.0 L Winkler % (Auto) 10.9 Eos % (Auto) 1.7 L Baso % (Auto) 0.4 Neut # (Auto) 8500 H Sodium 135 L Potassium 4.4 Chloride 99 Carbon Dioxide 31 BUN 13 Creatinine 0.60 L Estimated GFR > 60.0 BUN/Creatinine Ratio 21.7 Glucose 138 H Calcium 7.9 L Magnesium 1.7 Assessment & Plan Plan: Assessment/Plan Narrative: 78-year-old male postoperative day 2 from attempted laparoscopic converted open cholecystectomy with intraoperative cholangiography with retained common duct stone. However, the duct stone does not appear to be obstructing at this time. T-Tube in Dhruv-Gutierrez drain are functioning well. No evidence of biliary leak at this time. No evidence of infectious complications. Continue TPN per Internal Medicine service. Will advance diet once he begins show some signs of bowel function. He will have a little bit of duodenal edema from manipulation at surgery. Out of bed. I encouraged him to sit in a bedside chair and we will ambulate tomorrow. He may need physical therapy consultation for such. If he continues to tolerate clear liquids and has no signs of other gastrointestinal issues then we advanced him to regular diet at that time, possibly tomorrow. He will eventually need elective ERCP. Again, I have discussed this with him in detail. All questions were answered to his satisfaction, and he voiced understanding. Orders were written.
[2018-08-15 20:42] LABS: Blood Urea Nitrogen 12 mg/dL (9-20); Calcium 7.7 mg/dL (8.4-10.2); Carbon Dioxide 31 mmol/L (22-32); Chloride 95 mmol/L (98-107); Estimated Glomerular Filt Rate > 60.0 mL/min (>60); Glucose 139 mg/dL (80-110); HEMOLYSIS < 15 (0-50); Magnesium 1.4 mg/dL (1.6-2.3); Sodium 130 mmol/L (137-145)
[2018-08-15] MEDS: METOPROLOL IR 12.5 MG TABLET PO (23:09)
[2018-08-15] MEDS: HYDROMORPHONE PCA 6 MG/30 ML PCA.VIAL 5.8 MG IV (23:13)
[2018-08-16] VITALS (14 sets, daily range): BP systolic 119–181; BP diastolic 52–102; PULSE 76–98; RESP 16–20; TEMP 36.3–36.8; O2SAT 92–97
[2018-08-16] MEDS: metroNIDAZOLE 500 MG/100 ML PIGGYBACK 100 MG IV ×4 (00:44→18:26)
--- NOTE | 2018-08-16 01:13 | PC.NURSE ---
Addendum entered by Annamaria Dover R.N. 08/16/18 06:46: Continuous infusion of Dilaudid reprogrammed in earlier as pain was at 5/10 and patient much more alert and oriented. Now states pain is better controlled at 2-3/10. PICC dressing changed. Original Note: Addendum entered by Annamaria Dover R.N. 08/16/18 05:17: [place] call light fall from bed and alarm sounded. When entering room patient in respiratory distress with sat at 85%. Gasping for air and unable to speak in complete sentences. HR increased to 120 range. O2 turned up to 5L/min and given neb Rx after which patient no longer having difficulty breathing and HR back down into 90's. O2 now has been turned down to 2L and sat at 95%. Original Note: At shift change patient asleep with shallow respirations although sats 98% on 0.5L/min. Evening RN reports patient much more sedated so changed PROVIDER RELATIONS SPECIALIST settings to eliminate continuous infusion of Dilaudid. Now patient is awake and smiling although seems weak. Mostly oriented although thought month was August and was incorrect initially on . Informed him of change in PROVIDER RELATIONS SPECIALIST settings and encouraged to use PROVIDER RELATIONS SPECIALIST for pain control but assured that if pain not controlled the continuous can be restarted. Currently pain is 5/10 and exacerbated by cough. Breath sounds are coarse with expiratory rhonchi at bases. Has harsh, loose sounding cough which has been non productive. HRR with telemetry reading of SR with occasion PVC's. BP 159/86. Denies nausea. BT very hypoactive and now denies flatus. Abdomen is soft, tender and mildly distended. Upper abdominal incision (transverse) and umbilical incision are open to air, well approximated with intact alpa and no redness or drainage. Dressing over KENDRA/t-tube sites is CDI. KENDRA is compressed with serosanguinous drainage. T-tube to gravity with brown/green fluid. Is incontinent of urine although sometimes uses urinal but does have urinary urgency. Able to turn in bed but prefers to lie on back. TPN infusing along with IVF and intermittent antibiotics via double-lumen PICC. SCD's applied at shift change. Fall risk score is moderate; bed alarm is being used.
[2018-08-16] MEDS: AMPICILLIN/SULBACTAM 3 GM 3 GM in SODIUM CHLORIDE 0.9% 100 ML IV ×4 (02:59→22:17)
[2018-08-16] MEDS: ALBUTEROL/IPRATROPIUM 3 ML AMPUL INH (05:10)
[2018-08-16 05:49] LABS: Add Manual Diff / Slide Review NO; Basophils Percent Auto 0.3 % (0-2); Eosinophils Percent Auto 2.2 % (2-4); Hematocrit 35.8 % (41-53); Hemoglobin 11.6 g/dL (13.5-17.5); Mean Corpuscular HGB Conc 32.4 % (30-36); Mean Corpuscular Hemoglobin 26.9 PG (26-34); Mean Corpuscular Volume 82.9 fL (80-100); Monocytes Percent Auto 8.4 % (3-14); Neutrophils Absolute Auto 7100 /uL (3000-5900); Neutrophils Percent Auto 81.1 % (50-75); Platelet Count 334 X10^3/uL (150-400); Red Blood Cell Count 4.32 X10^6/uL (4.5-5.9); Red Cell Distribution Width 14.4 % (11.6-14.8); White Blood Cell Count 8.8 X10^3/uL (4.5-11.0)
[2018-08-16 05:55] LABS: Blood Urea Nitrogen 11 mg/dL (9-20); Calcium 7.7 mg/dL (8.4-10.2); Carbon Dioxide 30 mmol/L (22-32); Chloride 96 mmol/L (98-107); Estimated Glomerular Filt Rate > 60.0 mL/min (>60); Glucose 169 mg/dL (80-110); HEMOLYSIS < 15 (0-50); Potassium 3.9 mmol/L (3.4-5.1); Sodium 132 mmol/L (137-145)
[2018-08-16] MEDS: INSULIN ASPART 100 UNIT/ML INSULN PEN SUBCUT ×3 (06:11→22:06)
[2018-08-16] MEDS: HYDROMORPHONE PCA 6 MG/30 ML PCA.VIAL IV (06:15)
[2018-08-16] MEDS: SODIUM CHLORIDE 0.9% 1,000 ML 100 ML IV (07:58)
[2018-08-16] MEDS: METOPROLOL IR 12.5 MG TABLET PO ×2 (09:43→22:17)
[2018-08-16] MEDS: ENOXAPARIN 40 MG/0.4 ML SYRINGE SUBCUT (09:49)
--- NOTE | 2018-08-16 12:24 | DI.RAD.S_ITS ---
PROCEDURE: XR CHEST 1V INDICATIONS: SOB on rest TECHNIQUE: One view of the chest was acquired. COMPARISON: [facility], CR, XR CHEST FOR PICC 1V, 08/07/2018, 13:56. FINDINGS: Surgical changes and devices: Right-sided PICC line tip is in SVC. Surgical clips are noted in right upper quadrant abdomen. Lungs and pleura: Severe emphysematous changes are again seen in bilateral lung betancourt with extensive bullous disease. No definite focal infiltrate or gross pneumothorax. Small bilateral pleural effusion is seen with bibasilar atelectasis. Mediastinum: Mediastinal contours appear normal. Heart size is normal. Bones and chest wall: No suspicious bony lesions. Overlying soft tissues appear unremarkable. IMPRESSION: Postsurgical changes in right upper quadrant abdomen. Severe emphysema. Small bilateral pleural effusion and bibasilar atelectasis. No gross pneumothorax. Dictated by: Toni Flores M.D. on 08/16/2018 at 13:26 Approved by: Toni Flores M.D. on 08/16/2018 at 13:27
--- NOTE | 2018-08-16 13:36 | P.PN_ITS ---
Subjective Date Patient Seen: 08/16/18 Interval history: Patient reports shortness of breath earlier but now resolved. He still has poor appetite, and has some abdominal discomfort Exam Vital Signs (past 8 hours): - 08/16/18 06:20 08/16/18 06:29 08/16/18 07:05 Temperature Pulse Rate Respiratory Rate Blood Pressure 119/52 L Pulse Oximetry 94 94 08/16/18 08:00 08/16/18 08:35 08/16/18 11:31 Temperature 98.2 F Pulse Rate 86 Respiratory Rate 16 Blood Pressure 141/71 H Pulse Oximetry 95 97 95 08/16/18 12:00 Temperature 98.0 F Pulse Rate 97 H Respiratory Rate 19 Blood Pressure 173/68 H Pulse Oximetry 93 Oxygen Delivery Method Room Air Oxygen Flow Rate 0 Narrative Exam Narrative: Pleasant ill appearing male in no acute distress Lungs: decreased breath sounds but clear to auscultation CV: RRR nl Sl S2 Abd: soft/ mildly tender to palpation, slightly distended Ext: no edema Objective Labs Result Diagrams: 08/16/18 05:34 08/16/18 05:34 Labs: Laboratory Results - last 24 hr 08/15/18 08/15/18 08/16/18 05:24 20:18 05:34 WBC 8.8 RBC 4.32 L Hgb 11.6 L Hct 35.8 L MCV 82.9 MCH 26.9 MCHC 32.4 RDW 14.4 Plt Count 334 Neut % (Auto) 81.1 H Lymph % (Auto) 8.0 L Potter % (Auto) 8.4 Eos % (Auto) 2.2 Baso % (Auto) 0.3 Neut # (Auto) 7100 H Sodium 135 L 130 L Potassium 4.4 4.0 Chloride 99 95 L Carbon Dioxide 31 31 BUN 13 12 Creatinine 0.60 L 0.50 L Estimated GFR > 60.0 > 60.0 BUN/Creatinine Ratio 21.7 24.0 H Glucose 138 H 139 H Calcium 7.9 L 7.7 L Magnesium 1.7 1.4 L 08/16/18 05:34 WBC RBC Hgb Hct MCV MCH MCHC RDW Plt Count Neut % (Auto) Lymph % (Auto) Potter % (Auto) Eos % (Auto) Baso % (Auto) Neut # (Auto) Sodium 132 L Potassium 3.9 Chloride 96 L Carbon Dioxide 30 BUN 11 Creatinine 0.50 L Estimated GFR > 60.0 BUN/Creatinine Ratio 22.0 Glucose 169 H Calcium 7.7 L Magnesium Assessment & Plan (1) Pancreatitis: Problem details: Patient has had his diet advanced. Qualifiers: Acute pancreatitis complication: unspecified Chronicity: acute Pancreatitis type: unspecified pancreatitis type Qualified Code(s): K85.90 - Acute pancreatitis without necrosis or infection, unspecified Current visit: Yes Status: Acute (2) Cholecystitis: Problem details: Awaiting Hida scan Current visit: Yes Status: Acute (3) Protein calorie malnutrition: Problem details: Still on TPN. Will discontinue fluids for now Current visit: Yes Status: Acute
--- NOTE | 2018-08-16 15:03 | P.PN_ITS ---
Subjective Date Patient Seen: 08/16/18 Time Patient Seen: 10:01 Interval history: Mr. Kennedy is frustrated today. He feels like everyone is coming in and out of his room and doing too much. He is also upset that he wanted to go for a walk and so he got up out of his bed with his walker and the nurse told me was not allowed to walk alone. I explained to him that this was because we do not want him to fall. He can walk as much as he likes as long as someone is with him. Additionally, he woke up very short of breath. He says he still having difficulty breathing. A chest x-ray did not show any evidence of pneumonia but his COPD is severe. He denies any nausea. He says nothing sounds good to eat. He reports that he drank tomato juice and it gave him terrible reflux symptoms. He says he wanted to throw up but he started drinking water and that seemed to make it better. He says it caused tremendous burning in his stomach and so now he is afraid to eat. He reports his pain is well controlled. Exam Vital Signs (past 8 hours): - 08/16/18 07:05 08/16/18 08:00 08/16/18 08:35 Temperature 98.2 F Pulse Rate 86 Respiratory Rate 16 Blood Pressure 141/71 H Pulse Oximetry 94 95 97 08/16/18 11:31 08/16/18 12:00 Temperature 98.0 F Pulse Rate 97 H Respiratory Rate 19 Blood Pressure 173/68 H Pulse Oximetry 95 93 Oxygen Delivery Method Room Air Oxygen Flow Rate 0 Narrative Exam Narrative: Abdomen is soft with active bowel sounds. His KENDRA drain is draining serous fluid. So far today about 150 mL. The T-tube is draining bile but not enough that it would indicate complete obstruction of the distal common bile duct. His incisions are all well approximated and without erythema. Lungs: He has inspiratory and expiratory wheezes bilaterally. Most pronounced in bilateral upper lung betancourt. Objective Labs Result Diagrams: 08/16/18 05:34 08/16/18 05:34 Labs: Laboratory Results - last 24 hr 08/15/18 08/15/18 08/16/18 05:24 20:18 05:34 WBC 8.8 RBC 4.32 L Hgb 11.6 L Hct 35.8 L MCV 82.9 MCH 26.9 MCHC 32.4 RDW 14.4 Plt Count 334 Neut % (Auto) 81.1 H Lymph % (Auto) 8.0 L Gillespie % (Auto) 8.4 Eos % (Auto) 2.2 Baso % (Auto) 0.3 Neut # (Auto) 7100 H Sodium 135 L 130 L Potassium 4.4 4.0 Chloride 99 95 L Carbon Dioxide 31 31 BUN 13 12 Creatinine 0.60 L 0.50 L Estimated GFR > 60.0 > 60.0 BUN/Creatinine Ratio 21.7 24.0 H Glucose 138 H 139 H Calcium 7.9 L 7.7 L Magnesium 1.7 1.4 L 08/16/18 05:34 WBC RBC Hgb Hct MCV MCH MCHC RDW Plt Count Neut % (Auto) Lymph % (Auto) Gillespie % (Auto) Eos % (Auto) Baso % (Auto) Neut # (Auto) Sodium 132 L Potassium 3.9 Chloride 96 L Carbon Dioxide 30 BUN 11 Creatinine 0.50 L Estimated GFR > 60.0 BUN/Creatinine Ratio 22.0 Glucose 169 H Calcium 7.7 L Magnesium Assessment & Plan Plan: Assessment/Plan Narrative: Status post open cholecystectomy with a large gallstone that was not retrievable. A T tube is in place and so the patient is healing. We will advance him to a full liquid diet. Hopefully this will give him some options that he can pick at it to see if there is anything he might tolerate and enjoyed. I will renew his TPN in its current form.
--- NOTE | 2018-08-16 16:09 | PC.NURSE ---
Day Shift- Pt oriented to name, , hospital, follows direction, uses call light appropriately. OOB to chair with 2PA using gait belt and walker, SLEEVE SETTER SAFETY STITCH offered to walk pt from bed to window and pt stated he just wanted to go to chair. Had slightly unsteady gait. No BM today. ABd dressing surrounding drains changed by Dr. Bean today around 1145. KENDRA insitu on bulb suction drained sero-sang fluid, approx 100mls and Biliary drain to gravity drained bile fluid, approx 90mls. Abd incisions x2 with alpa intact, no S/S of infection.
[2018-08-16] MEDS: SODIUM CHLORIDE 0.9% 500 ML 21 ML IV (17:27)
[2018-08-16] MEDS: HYDROMORPHONE PCA 6 MG/30 ML PCA.VIAL 6.8 MG IV ×2 (17:29→22:08)
[2018-08-16] MEDS: AA 5 %/CALCIUM/LYTES/DEXT 20 % 1,000 ML with MULTIVITAMIN 10 ML, TRACE ELEMENTS 1 ML 42.125 ML IV (19:34)
[2018-08-16] MEDS: FAT EMULSIONS 50 GM/250 ML EMULSION IV (19:35)
[2018-08-17] VITALS (14 sets, daily range): BP systolic 131–180; BP diastolic 72–95; PULSE 84–104; RESP 14–20; TEMP 36.4–36.6; O2SAT 92–99
--- NOTE | 2018-08-17 00:04 | PC.NURSE ---
LS diminished, this RN instructed patient on deep breathing, pt demonstrated understanding; O2 RA=95%; BTs hypoactive; pt denies flatulence; PICC patent and IV fluids, TPN and abx infusing; bed alarm active
[2018-08-17] MEDS: PANTOPRAZOLE 40 MG VIAL 20 MG IV ×3 (00:47→20:15)
[2018-08-17] MEDS: metroNIDAZOLE 500 MG/100 ML PIGGYBACK 100 MG IV ×4 (00:51→20:12)
[2018-08-17] MEDS: AMPICILLIN/SULBACTAM 3 GM 3 GM in SODIUM CHLORIDE 0.9% 100 ML IV ×4 (02:50→21:11)
--- NOTE | 2018-08-17 03:05 | PC.NURSE ---
Patient having hallucinations; talking about a box in the corner with tomatoes on it. When questioned about what he was talking about patient states I guess it isn't there, huh? so is aware of hallucinations but states it's kind of cool. Continuous infusion of Dilaudid stopped due to hallucinations and patient made aware he needs to be push SENIOR SQL SERVER DEVELOPER button for demand pain medication if having pain. Also informed patient if pain level starts to increase more he needs to let RN know as continuous can be reinitiated as needed.
--- NOTE | 2018-08-17 03:43 | PC.NURSE ---
Addendum entered by Annamaria Dover R.N. 08/17/18 06:31: Bed alarrm sounding and patient up on edge of bed and states he needs to have a BM. Assisted to bathroom with 1 assist + walker but was unable to have BM. Assisted back to bed with 1 assist (no walker). Again, with exertion, patient became dyspneic and sat when back to bed initially showing 79% and HR in 130 range. Oxygen increased back to 3L/min and currently sat at 96% with HR of 109. Original Note: Addendum entered by Annamaria Dover R.N. 08/17/18 05:44: Continues to intermittently drop sats into mid 80 range but almost immediately rebounds back into 90's. Currently down to 1L/min oxygen with sat of 97%. States pain is currently 3/10 and tolerable with intermittent use of NEUROSURGERY SPINE PHYSICIAN. No further hallucinations noted. Original Note: Bed alarm sounding and found patient sitting on edge of bed stating he needs to urinate but SCD's preventing him from getting out of bed. Disconnected SCD tubes and assisted patient to stand to urinate and had to take pulse oximeter off as tubing caught on bed frame. Patient became very SOB with exertion and when pulse oximeter reattached O2 sat was down to 80% and HR in 120 range. Started O2 at 5L/min and assisted back into bed after urinating. Took 10 minutes for O2 sat to recover to > 92% and for HR to fall back < 100. HR hit a high of 161 during that 10 minute period. Patient reminded to call for assistance rather than attempting to get up on own; verbalizes understanding but has had hx of impulsiveness during this hospitalization. Bed alarm back on. Will continue to monitor HR and pulse ox and wean O2 down as able.
--- NOTE | 2018-08-17 04:18 | PC.NURSE ---
Pt is A and O x 4, VSS. Pt hallucinating perhaps 2/2 continuous dilaudid, other RN changed to patient controlled release. HR became elevated and O2 sats dropped. Other RN increased O2, and now at 3 liters NC. Denies pain, nausea and discomfort. Able to sleep. 0000 CBG =181 with no coverage. Drain sites clean and dry, small drainage from KENDRA. Reg HR, now WNL and LS diminished.
[2018-08-17] MEDS: HYDROMORPHONE PCA 6 MG/30 ML PCA.VIAL IV ×3 (05:34→22:29)
[2018-08-17] MEDS: INSULIN ASPART 100 UNIT/ML INSULN PEN SUBCUT ×3 (06:16→17:55)
[2018-08-17] MEDS: FUROSEMIDE 20 MG/2 ML VIAL IV (09:11)
[2018-08-17] MEDS: METOPROLOL IR 12.5 MG TABLET PO ×2 (09:35→20:11)
[2018-08-17] MEDS: ENOXAPARIN 40 MG/0.4 ML SYRINGE SUBCUT (09:49)
--- NOTE | 2018-08-17 13:08 | PM.PN.1 ---
Subjective Date Patient Seen: 08/17/18 Time Patient Seen: 13:08 Interval history: Edwin it is up and sitting in a chair. He looks a little better than yesterday. He says he is working on taking in more food. There is a partially eaten egg salad sandwich on his lunch tray. He has consumed perhaps 5 or 10% of it. He does admit that his nausea and reflux is much improved. He says his appetite just has not returned yet. He denies any shortness of breath now but he says that comes and goes as well. He says his pain is well controlled. Exam Vital Signs (past 8 hours): - 08/17/18 05:32 08/17/18 07:55 08/17/18 08:07 Temperature 97.8 F Pulse Rate 92 H 84 Respiratory Rate 17 14 Blood Pressure 155/84 H 154/95 H Pulse Oximetry 97 98 95 08/17/18 08:20 08/17/18 08:58 08/17/18 09:15 Temperature Pulse Rate Respiratory Rate Blood Pressure Pulse Oximetry 95 96 94 08/17/18 11:55 08/17/18 12:28 Temperature 97.8 F Pulse Rate 97 H Respiratory Rate 18 Blood Pressure 131/83 Pulse Oximetry 96 97 Fraction of Inspired Oxygen 21 Oxygen Delivery Method Room Air Oxygen Flow Rate 0 Narrative Exam Narrative: Lungs: Scattered wheezes bilaterally but much improved from yesterday Heart: Regular rate and rhythm Abdomen: Soft, right upper quadrant KENDRA drain is serous and the amount is decreased from yesterday. Approximately 50 mils as opposed to 150 mils at this time yesterday. T-tube is draining bile. 60 cc so far that shift. There is no apparent bile in the KENDRA drain. The incision is clean dry and intact. The abdomen is soft and mildly tender. Active bowel sounds. Extremities: Warm and well perfused and without edema Objective Labs Result Diagrams: 08/16/18 05:34 08/16/18 05:34 Labs: Laboratory Results - last 24 hr 08/16/18 14:22 B-Natriuretic Peptide 665.0 H Assessment & Plan Plan: Assessment/Plan Narrative: Very pleasant gentleman status post open cholecystectomy with calculus in the common bile duct. He has a T-tube in place and so he is not obstructed. I will renew his TPN and continue to encourage him to eat and hopefully to walk. He will very likely need placement following discharge
--- NOTE | 2018-08-17 15:22 | P.PN_ITS ---
Subjective Date Patient Seen: 08/17/18 Interval history: Patient still with a poor appetite. Currently eating about 5- 10% of his meals Mild abdominal pain Exam Vital Signs (past 8 hours): - 08/17/18 07:55 08/17/18 08:07 08/17/18 08:20 Temperature 97.8 F Pulse Rate 92 H 84 Respiratory Rate 17 14 Blood Pressure 155/84 H 154/95 H Pulse Oximetry 98 95 95 08/17/18 08:58 08/17/18 09:15 08/17/18 11:55 Temperature 97.8 F Pulse Rate 97 H Respiratory Rate 18 Blood Pressure 131/83 Pulse Oximetry 96 94 96 08/17/18 12:28 08/17/18 14:00 Temperature Pulse Rate 89 Respiratory Rate 16 Blood Pressure Pulse Oximetry 97 95 Fraction of Inspired Oxygen 21 Oxygen Delivery Method Room Air Oxygen Flow Rate 0 Narrative Exam Narrative: Lungs: clear to auscultation CV: RRR nl Sl S2 Abd: mildly distended, slightly tender to palpation Ext: no edema Objective Labs Result Diagrams: 08/16/18 05:34 08/16/18 05:34 Assessment & Plan (1) Hyponatremia: Problem details: ON TPN this should correct Current visit: Yes Status: Acute (2) Protein calorie malnutrition: Problem details: Still on TPN. Will discontinue fluids for now Still with very poor oral intake Current visit: Yes Status: Acute (3) Pancreatitis: Problem details: Patient has had his diet advanced. Qualifiers: Acute pancreatitis complication: unspecified Chronicity: acute Pancreatitis type: unspecified pancreatitis type Qualified Code(s): K85.90 - Acute pancreatitis without necrosis or infection, unspecified Current visit: Yes Status: Acute (4) Common bile duct stone: Problem details: T tube in place Current visit: Yes Status: Acute Plan: Assessment/Plan Narrative: May require SNF placement at discharge
[2018-08-17] MEDS: BISACODYL 5 MG TABLET 10 MG PO (16:22)
[2018-08-17] MEDS: FAT EMULSIONS 50 GM/250 ML EMULSION IV (18:07)
[2018-08-17] MEDS: AA 5 %/CALCIUM/LYTES/DEXT 20 % 1,000 ML with MULTIVITAMIN 10 ML, TRACE ELEMENTS 1 ML 42.125 ML IV (18:08)
[2018-08-17] MEDS: SODIUM CHLORIDE 0.9% 500 ML 21 ML IV (20:21)
[2018-08-17] MEDS: DOCUSATE 250 MG CAPSULE PO (20:25)
--- NOTE | 2018-08-17 21:23 | PC.NURSE ---
Pt has had relatively uneventful evening. SpO2 95% RA, slight expiratory wheeze noted. TPN, Lipids and NS infusing via pump as per orders. Abd w/alpa open into air, not drainage, T-tube and KENDRA intact and patent. Call light w/in reach, bed alarm on for pt safety. Continue w/plan of care.
[2018-08-18] VITALS (9 sets, daily range): BP systolic 152–192; BP diastolic 78–110; PULSE 89–113; RESP 16–21; TEMP 36.4–36.8; O2SAT 96–97
[2018-08-18] MEDS: INSULIN ASPART 100 UNIT/ML INSULN PEN SUBCUT ×3 (00:07→12:37)
[2018-08-18] MEDS: metroNIDAZOLE 500 MG/100 ML PIGGYBACK 100 MG IV ×4 (00:25→18:41)
--- NOTE | 2018-08-18 00:35 | PC.NURSE ---
Addendum entered by Annamaria Dover R.N. 08/18/18 06:39: Patient has slept much better tonight. States pain is well controlled and has only used 0.6mg of Dilaudid this shift. BP elevated this morning at 192/90 with HR of 104. Original Note: Addendum entered by Annamaria Dover R.N. 08/18/18 02:15: Up earlier to [facility] and sat was 94% with HR between 110-115. Still SOB but much improved from last noc. Original Note: Patient is alert and oriented. Breath sounds with expiratory wheezing in bilateral mid/lower lobes; RA sat 97%; reportedly still gets dyspneic upon exertion. HRR but remains tachy in low 100's. BP elevated at 152/84. Denies nausea. BT present and passing flatus and reports he had 3 loose stools yesterday after receiving pills. TPN + Lipids infusing. Upper abdominal and umbilical incisions are open to air, well approximated and without redness/drainage. Dressing around KENDRA/T-tube sites is 50% saturated with serous drainage so dressing was changed and insertion sites are without sx infection. States abdominal pain is controlled at 3/10 with use of demand INSPECTOR PENETRANT. Continues with urinary urgency and incontinence. Is able to turn himself in bed but needing 1 assist when out of bed due to weakness. Refuses SCD's so reminded to ankle wave. Fall risk score is high as patient is impulsive and does not remember to call for staff assist; bed alarm is activated.
[2018-08-18] MEDS: AMPICILLIN/SULBACTAM 3 GM 3 GM in SODIUM CHLORIDE 0.9% 100 ML IV ×2 (02:59→09:33)
[2018-08-18] MEDS: HYDROMORPHONE PCA 6 MG/30 ML PCA.VIAL IV ×2 (06:32→22:31)
[2018-08-18] MEDS: PANTOPRAZOLE 40 MG VIAL 20 MG IV ×2 (09:33→20:12)
[2018-08-18] MEDS: METOPROLOL IR 12.5 MG TABLET PO ×2 (09:38→20:12)
[2018-08-18] MEDS: ENOXAPARIN 40 MG/0.4 ML SYRINGE SUBCUT (09:38)
--- NOTE | 2018-08-18 12:49 | PC.NURSE ---
Edwin reports that he feels better than yesterday. Declined to take Chance. I pooped enough already. He is taking about half of his soft diet. TPN infusing. 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 Able to get up and amb. around halls with RN assist. Edwin gets very dyspneic with exertion, but able to recover. Sat up in chair for several hours. Deyvi drain present with sm-mod. amt. serosang. miriam., T-tube present with mod. amt. of brown bile. Both incisions have intact alpa, both with well-approximated edges. VSS.
--- NOTE | 2018-08-18 13:06 | PM.PN.1 ---
Subjective Date Patient Seen: 08/18/18 Time Patient Seen: 13:19 Interval history: He looks quite dyspneic after walking in the hallway, with audible wheezing,. Staff report he is eating 50% of his meals. 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 He tells me that he smoked for 60 years. Exam Vital Signs (past 8 hours): - 08/18/18 06:00 08/18/18 07:00 08/18/18 08:00 Temperature 97.6 F 98.3 F Pulse Rate 104 H 113 H Respiratory Rate 19 20 Blood Pressure 192/90 H 158/110 H Pulse Oximetry 96 97 08/18/18 12:00 Temperature 98.2 F Pulse Rate 89 Respiratory Rate 16 Blood Pressure 152/85 H Pulse Oximetry Fraction of Inspired Oxygen 21 Oxygen Delivery Method Room Air Oxygen Flow Rate 0 Narrative Exam Narrative: Alert and oriented x3, looking quite dyspneic after just walking in the hallway. Heart regular rate and rhythm without murmur, lungs diminished breath sounds bilaterally. Extremities no ankle edema. Objective Labs Result Diagrams: 08/16/18 05:34 08/16/18 05:34 Assessment & Plan (1) Common bile duct stone: Problem details: T tube in place per surgery. Current visit: Yes Status: Acute (2) Hyponatremia: Problem details: ON TPN but still low at 132 on 08/16 Current visit: Yes Status: Acute (3) Protein calorie malnutrition: Problem details: Still on TPN. Still with very poor oral intake Follow labs per protocol. Current visit: Yes Status: Acute (4) Abnormal CT scan, stomach: Current visit: Yes Status: Chronic (5) Pancreatitis: Problem details: Patient has had his diet advanced. Qualifiers: Acute pancreatitis complication: unspecified Chronicity: acute Pancreatitis type: unspecified pancreatitis type Qualified Code(s): K85.90 - Acute pancreatitis without necrosis or infection, unspecified Current visit: Yes Status: Acute (6) Cholecystitis: Problem details: Awaiting Hida scan Current visit: Yes Status: Acute (7) Dyspnea on exertion: Problem details: Continue albuterol and consider Respiratory therapy evaluation. No hypoxia. Current visit: Yes Status: Acute
--- NOTE | 2018-08-18 14:19 | PN_ITS ---
DATE OF SERVICE: 08/18/2018 SUBJECTIVE: Patient's resting comfortably in bed. He's anticipating eating some clam chowder for lunch. He's doing better with his diet. He's on a mechanical soft diet. Has a moderate amount of T tube drainage which is bile. Dhruv Gutierrez drain contains no bile. It's serosanguineous, minimal amount. IMPRESSION: We're awaiting his regaining his strength and improved nutrition prior to submitting him for ERCP and common bile duct extraction. Currently, the patient is completely controlled with T tube and is not jaundiced. His abdomen is soft. His incision is healing very nicely. I'm going to repeat his electrolytes which haven't been checked for a few days and continue his TPN until his nutrition improves. May be able to taper that over the next 24 to 36 hours. Yair Kennedy - Edith/franco doc#: [id number]/job#: [id number] dd: 08/18/2018 12:01:00 dt: 08/18/2018 14:16:00 DICTATING /COPIES TO: Jabier Greenwood MD COPIES MNE: DANIELA
[2018-08-18] MEDS: HYDROMORPHONE PCA 6 MG/30 ML PCA.VIAL 0.8 MG IV (14:50)
[2018-08-18 15:41] LABS: Blood Urea Nitrogen 10 mg/dL (9-20); Calcium 7.9 mg/dL (8.4-10.2); Carbon Dioxide 29 mmol/L (22-32); Chloride 100 mmol/L (98-107); Estimated Glomerular Filt Rate > 60.0 mL/min (>60); Glucose 140 mg/dL (80-110); HEMOLYSIS < 15 (0-50); Potassium 3.4 mmol/L (3.4-5.1); Sodium 136 mmol/L (137-145)
--- NOTE | 2018-08-18 16:48 | CM.DPC ---
DCP: continued: case received and discussed in Team Rounds. TB is ruled out. Pt has had surgery and is now on TPN and taking about half of a soft diet. He is mobilizing about the halls with nursing support. P: likely home with sposue when stable for same. Follow prn.
[2018-08-18] MEDS: AA 5 %/CALCIUM/LYTES/DEXT 20 % 1,000 ML with MULTIVITAMIN 10 ML, TRACE ELEMENTS 1 ML 42.125 ML IV (17:44)
[2018-08-19] VITALS (8 sets, daily range): BP systolic 149–160; BP diastolic 78–93; PULSE 89–109; RESP 16–22; TEMP 36.8–37.7; O2SAT 94–97
[2018-08-19] MEDS: metroNIDAZOLE 500 MG/100 ML PIGGYBACK 100 MG IV ×2 (00:33→06:13)
[2018-08-19 06:06] LABS: Alanine Aminotransferase 34 IU/L (21-72); Albumin 2.4 g/dL (3.5-5.0); Albumin Globulin Ratio 0.9 (1.0-2.8); Alkaline Phosphatase 60 U/L (38-126); Aspartate Aminotransferase 22 IU/L (17-59); Bilirubin Total 0.2 mg/dL (0.2-1.3); Blood Urea Nitrogen 12 mg/dL (9-20); Calcium 7.7 mg/dL (8.4-10.2); Carbon Dioxide 28 mmol/L (22-32); Chloride 101 mmol/L (98-107); Estimated Glomerular Filt Rate > 60.0 mL/min (>60); Globulin 2.7 g/dL (1.7-4.1); Glucose 149 mg/dL (80-110); HEMOLYSIS < 15 (0-50); Sodium 137 mmol/L (137-145); Total Protein 5.1 g/dL (6.3-8.2)
[2018-08-19] MEDS: HYDROMORPHONE PCA 6 MG/30 ML PCA.VIAL IV ×3 (06:13→21:14)
[2018-08-19] MEDS: SODIUM CHLORIDE 0.9% 500 ML 21 ML IV (06:14)
[2018-08-19] MEDS: INSULIN ASPART 100 UNIT/ML INSULN PEN SUBCUT ×2 (06:18→17:05)
[2018-08-19] MEDS: ENOXAPARIN 40 MG/0.4 ML SYRINGE SUBCUT (10:01)
[2018-08-19] MEDS: METOPROLOL IR 12.5 MG TABLET PO ×2 (10:01→21:07)
[2018-08-19] MEDS: PANTOPRAZOLE 40 MG VIAL 20 MG IV ×2 (10:01→21:09)
--- NOTE | 2018-08-19 11:39 | P.PN_ITS ---
Subjective Interval history: COMPLAINT OF CRAMPY ABDOMINAL DISCOMFORT THIS A.M.. 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 AND 8:00 A.M. THIS MORNING. HE IS SITTING IN CHAIR THIS MORNING. DENIED ANY INCREASED SHORTNESS OF BREATH OR DYSPNEA. HE HAS NO CHEST DISCOMFORT. Exam Vital Signs (past 8 hours): - 08/19/18 04:00 08/19/18 07:49 Temperature 98.6 F 99.8 F H Pulse Rate 89 100 H Respiratory Rate 16 18 Blood Pressure 156/91 H 154/93 H Pulse Oximetry 96 96 Fraction of Inspired Oxygen 21 Oxygen Delivery Method Room Air Oxygen Flow Rate 0 Narrative Exam Narrative: GENERAL NAD SITTING IN CHAIR HEENT NORMOCEPHALIC ATRAUMATIC EXTRAOCULAR MOVEMENT WAS INTACT PUPILS ARE EQUAL ROUND REACTIVE FUNDI NOT VISUALIZED OROPHARYNX CLEAR NECK SUPPLE WITHOUT THYROMEGALY BRUITS OR JUGULAR VENOUS DISTENTION PULMONARY DECREASED BREATH SOUNDS AT BASES NO WHEEZES APPRECIATED CARDIOVASCULAR REGULAR RHYTHM S1-S2 IS NORMAL ABDOMEN TONGUE BUT NOT DISTENDED THERE IS BANDAGES OF THE RIGHT SIDE OF THE ABDOMEN THROUGH THESE BANDAGES IS T TUBE. BOWEL SOUNDS ARE ACTIVE EXTREMITIES NO CLUBBING EDEMA OR CYANOSIS NEUROLOGIC GROSSLY PHYSIOLOGIC PSYCHIATRIC MOOD AND AFFECT ARE NORMAL. HE IS ALERT ORIENTED X3 Objective Labs Result Diagrams: 08/16/18 05:34 08/19/18 05:02 Labs: Laboratory Results - last 24 hr 08/18/18 08/19/18 14:15 05:02 Sodium 136 L 137 Potassium 3.4 3.0 L Chloride 100 101 Carbon Dioxide 29 28 BUN 10 12 Creatinine 0.50 L 0.50 L Estimated GFR > 60.0 > 60.0 BUN/Creatinine Ratio 20.0 24.0 H Glucose 140 H 149 H Calcium 7.9 L 7.7 L Total Bilirubin 0.2 AST 22 ALT 34 Alkaline Phosphatase 60 Total Protein 5.1 L Albumin 2.4 L Globulin 2.7 Albumin/Globulin Ratio 0.9 L Assessment & Plan Plan: Assessment/Plan Narrative: 1. POD 6 OPEN CHOLECYSTECTOMY AFTER ATTEMPTED LAP CHOLY WAS UNSUCCESSFUL, COMMON BILE DUCT EXPLORATION AND PLACEMENT OF T2 WELL INTRAOPERATIVE CHOLANGIOGRAPHY. UNSUCCESSFUL EXTRACTION OF DISTAL COMMON BILE DUCT STONE 2. ACUTE GALLSTONE PANCREATITIS , CHOLELITHIASIS, AND CHOLEDOCHOLITHIASIS S/P SURGICAL PROCEDURES ABOVE RESOLVED STATUS POST SURGERY MENTIONED ABOVE 3. COPD/EMPHYSEMA NO SIGNIFICANT RESPIRATORY PROBLEMS. ON NEB TREATMENTS 4. RIGHT UPPER LOBE AND LEFT UPPER LOBE PARTIALLY CALCIFIED MASSES 5. CAVITARY LESION WITH INTERNAL AIR FLUID LEVEL LEFT LUNG APEX 6. F/E/N-ORAL FOOD PLUS TPN 7. HYPOKALEMIA WILL PLACE ON ORAL POTASSIUM 3 DOSES TODAY CHECK BMP IN A.M.
[2018-08-19] MEDS: POTASSIUM CHLORIDE 20 MEQ TAB 40 MEQ PO ×3 (13:45→21:07)
--- NOTE | 2018-08-19 15:20 | PT.IIE ---
Current Diagnoses Unspecified protein-calorie malnutrition (08/05/18) Hypo-osmolality and hyponatremia (08/05/18) Other specified respiratory disorders (08/05/18) Calculus of bile duct without cholangitis or cholecystitis without obstruction (08/05/18) Cholecystitis, unspecified (08/05/18) Acute pancreatitis without necrosis or infection, unspecified (08/05/18) Other forms of dyspnea (08/05/18) Unspecified abdominal pain (08/05/18) Abnormal findings on diagnostic imaging of other parts of digestive tract (08/05/18) Surgery Performed Operation Date: 08/11/18 12:00 Actual Procedures p Esophagogastroduodenoscopy with biopsy - Tato Lamb MD Operation Date: 08/13/18 08:30 Actual Procedures p Laparoscopic Cholecystectomy with Intraoperative Cholangiograms Converted to open Cholecystectomy with CBD Exploration(Not Applicable) - Tato Lamb MD Surgical History (Last Reviewed 08/10/18 @ 19:40 by Abelardo Hester MD) H/O inguinal hernia repair (Resolved) Medical History (Last Updated 08/10/18 @ 19:40 by Abelardo Hester MD) Chronic cough (Chronic) Inguinal hernia (Chronic) Reducible right inguinal hernia (Chronic) Vocal cord polyps (Resolved) Physical Therapy Inpatient Evaluation/Re-Eval M1 PT/OT-IP Prior Functional Status Start: 08/19/18 15:22 Freq: NEEDED Status: Active Protocol: Document 08/19/18 15:20 [facility] (Rec: 08/19/18 15:35 [facility] [id number]) Medical Review Prior Functional Status Medical History Reviewed Yes Mobility and Gait indep. community ambulator without device Activities of Daily Living and IADL's indep. ADLs Social History Household Members spouse Living Arrangements House Number of Floors (Floors) One Floor Number of Stairs To Enter/Railing? ramped entry Home Environment Standard Height Toilet Walk in Shower Tub/Shower Ramp Home Equipment Front Wheel Walker Shower Seat without Backrest Hand Held Shower Grab Bars In Shower Additional Social History Comment able to assist some upon d/c. M2 PT-IP Current Condition Start: 08/19/18 15:22 Freq: NEEDED Status: Active Protocol: Document 08/19/18 15:20 [facility] (Rec: 08/19/18 15:35 [facility] [id number]) Physical Therapy Current Condition Current Condition Evaluation Date 08/19/18 Treatment Diagnosis open cholecystectomy 08/13/18, impaired gait tolerance Precautions Abdominal Surgery Precautions Log Roll Lifting Restrictions Gait Belt above Incisional Area Other Precautions drain, T-tube M3 PT-IP Subjective Start: 08/19/18 15:22 Freq: NEEDED Status: Active Protocol: Document 08/19/18 15:20 [facility] (Rec: 08/19/18 15:35 [facility] [id number]) Subjective Physical Therapy Visit Type Type Initial Evaluation Visit Start Time 14:55 Visit Stop Time 15:20 Total Visit Minutes 25 Number of SIGNAL TOWER OPERATOR Visits 0 Physical Therapy Visit Comments Patient Comments pt states he has been up out of the room a little bit. Patient Goals wants to go home M4 PT-IP Mobility and Gait Start: 08/19/18 15:22 Freq: NEEDED Status: Active Protocol: Document 08/19/18 15:20 [facility] (Rec: 08/19/18 15:35 [facility] [id number]) PT-Bed Mobility Assessment Supine to Sit Supine to Sit Standby Assistance Sit to Supine Sit to Supine Standby Assistance Scooting Scooting to Edge of Bed Independent Scooting Up and Down in Bed Standby Assistance PT-Transfer Assessment Sit to and From Stand Sit to and from Stand Standby Assistance Equipment Transfer Assistive Device Gait Belt Front Wheeled Walker Transfers Transfer Destination Bed Transfer Technique Stand Step Pivot Transfer Ability Level of Assist Standby Assistance Gait Assessment Gait Gait Assistance Required: Standby Assistance Distance (Feet) 140 Assistive Devices Assistive Device Gait Belt Front Wheeled Walker Gait Deviations General Gait Pattern Decreased Feet Clearance Factors Limiting Gait Function Factors Limiting Gait Function Decreased Activity Tolerance Decreased Strength Comments Gait Comments O2 97% on RA, HR 73-103 bpm during session, mild c/o SOB PT-Balance Assessment Sitting Balance and Reactions Static Sitting Balance Ability Good Dynamic Sitting Balance Ability Good Standing Balance and Reactions Static Standing Balance Ability Good Dynamic Standing Balance Ability Good Device Used FWW M5 PT-IP Objective Assessments Start: 08/19/18 15:22 Freq: NEEDED Status: Active Protocol: Document 08/19/18 15:20 [facility] (Rec: 08/19/18 15:35 [facility] [id number]) Orientation Orientation/Cognition Level of Alertness Alert Strength Comments Strength Comments not tested due to recent surgery but at least 3/5 or greater in the LEs. M6 PT-IP Treatment Start: 08/19/18 15:22 Freq: NEEDED Status: Active Protocol: Document 08/19/18 15:20 [facility] (Rec: 08/19/18 15:35 [facility] [id number]) Physical Therapy Treatment Education Education Provided Precautions Safety M7 PT-IP Assessment and Plan Start: 08/19/18 15:22 Freq: NEEDED Status: Active Protocol: Document 08/19/18 15:20 [facility] (Rec: 08/19/18 15:35 [facility] [id number]) PT Summary Assessment and Plan Potential Rehabilitation Potential Excellent Status of Condition at Evaluation Evolving Summary Impairments Pain Bed Mobility Transfers Gait Activity Tolerance Assessment Summary Pt able to tolerate ambulation with SBA using a FWW, no loss of balance observed. Pt does demonstrate good core strength with supine<->sit for abdominal protection, but depending on progression and LEATHER SORTER removal may need further training with bed mobility. Pt is fatigued after gait 140 ft using FWW, but O2 saturation and HR WNL. Pt is below his prior level of mobility, and would benefit from continued physical therapy during this episode of care to progress his gait tolerance and overall independence prior to d/c. Expect he will be able to d/c home when medically stable. Goals Bed Mobility Goal Independent Transfer Goal Independent Gait Goal Independent Gait Distance 300 Days to Meet Goals 2 Frequency of Treatment Frequency Of Treatment Once a Day Treatment Plan Physical Therapy Treatment Plan Bed Mobility Training Gait Training Post Op Education Discharge Planning Recommendations To Nursing Amount of Assist Needed 1 Person Assist Discharge Recommendations PT Discharge Recommendations Home with Assistance
--- NOTE | 2018-08-19 15:58 | OT.IP.EVAL ---
Current Diagnoses Unspecified protein-calorie malnutrition (08/05/18) Hypo-osmolality and hyponatremia (08/05/18) Other specified respiratory disorders (08/05/18) Calculus of bile duct without cholangitis or cholecystitis without obstruction (08/05/18) Cholecystitis, unspecified (08/05/18) Acute pancreatitis without necrosis or infection, unspecified (08/05/18) Other forms of dyspnea (08/05/18) Unspecified abdominal pain (08/05/18) Abnormal findings on diagnostic imaging of other parts of digestive tract (08/05/18) Surgery Performed Operation Date: 08/11/18 12:00 Actual Procedures p Esophagogastroduodenoscopy with biopsy - Tato Lamb MD Operation Date: 08/13/18 08:30 Actual Procedures p Laparoscopic Cholecystectomy with Intraoperative Cholangiograms Converted to open Cholecystectomy with CBD Exploration(Not Applicable) - Tato Lamb MD Past Medical History (Last Updated 08/10/18 @ 19:40 by Abelardo Hester MD) Chronic cough (Chronic) Inguinal hernia (Chronic) Reducible right inguinal hernia (Chronic) Vocal cord polyps (Resolved) Surgical History (Last Reviewed 08/10/18 @ 19:40 by Abelardo Hester MD) H/O inguinal hernia repair (Resolved) Occupational Therapy Inpatient Evaluation/Re-Eval M1 PT/OT-IP Prior Functional Status Start: 08/19/18 15:22 Freq: NEEDED Status: Active Protocol: Document 08/19/18 15:20 RCC (Rec: 08/19/18 15:35 RCC [id number]) Medical Review Prior Functional Status Medical History Reviewed Yes Mobility and Gait indep. community ambulator without device Activities of Daily Living and IADL's indep. ADLs Social History Household Members spouse Living Arrangements House Number of Floors (Floors) One Floor Number of Stairs To Enter/Railing? ramped entry Home Environment Standard Height Toilet Walk in Shower Tub/Shower Ramp Home Equipment Front Wheel Walker Shower Seat without Backrest Hand Held Shower Grab Bars In Shower Additional Social History Comment able to assist some upon d/c. M1 PT/OT-IP Prior Functional Status Start: 08/19/18 15:34 Freq: NEEDED Status: Active Protocol: Document 08/19/18 15:37 CCC (Rec: 08/19/18 15:57 CCC [id number]) Medical Review Prior Functional Status Medical History Reviewed Yes Diet/Fluid Consistency Mechanical Soft Communication Independent. Mobility and Gait indep. community ambulator without device Activities of Daily Living and IADL's indep. ADLs Social History Household Members spouse Living Arrangements House Number of Floors (Floors) One Floor Number of Stairs To Enter/Railing? ramped entry Home Environment Standard Height Toilet Walk in Shower Tub/Shower Ramp Home Equipment Front Wheel Walker Shower Seat without Backrest Hand Held Shower Grab Bars In Shower Additional Social History Comment able to assist some upon d/c. M2 OT-IP Current Condition Start: 08/19/18 15:34 Freq: Status: Active Protocol: Document 08/19/18 15:37 [facility] (Rec: 08/19/18 15:57 [facility] [id number]) Occupational Therapy Current Condition Current Condition Evaluation Date 08/19/18 Treatment Diagnosis Acute gallstone pancreatitis. Diagnosis Onset Date 08/05/18 Post Operative Precautions Abdominal Surgery Precautions Log Roll Lifting Restrictions Gait Belt above Incisional Area Other Precautions drain, T-tube M3 OT- IP Subjective and Pain Start: 08/19/18 15:34 Freq: Status: Active Protocol: Document 08/19/18 15:37 [facility] (Rec: 08/19/18 15:57 [facility] [id number]) OT- Subjective Occupational Therapy Visit Type Type Initial Evaluation Visit Start Time 14:55 Visit Stop Time 15:30 Total Visit Minutes 35 Occupational Therapy Visit Comments Patient/Caregiver Goals Pt states wants to go home when medically stable. OT Pain Assessment Pain When Pain Assessed At Rest Pain Present Pain Present Denied Pain M4 OT- IP ADL's Start: 08/19/18 15:34 Freq: Status: Active Protocol: Document 08/19/18 15:37 [facility] (Rec: 08/19/18 15:57 [facility] [id number]) OT ADL-Grooming General Evaluation Grooming Ability Standby Assistance Areas Needing Assistance Retrieving/Set-up of Grooming Items Comments OT Grooming Comments SBA and able to stand at sink for grooming needs. OT ADL-Dressing Comments OT Dressing Comments Showed pt LB AED and pt states will not need it as feels he is capable of doing all needs. Pt states has a equipment engineer at home , otherwise can assist. OT ADL-Bathing Comments OT Bathing Comments Suggested pt use WIS at home, but pt does not want to use 's bathroom. Therefore pt' s bathroom has tub/shower with grab bar, shower stool, non- slip mat, and HHSP. M6 OT- IP Functional Cognition Start: 08/19/18 15:34 Freq: Status: Active Protocol: Document 08/19/18 15:37 [facility] (Rec: 08/19/18 15:57 [facility] [id number]) Cognitive Factors Limiting Selfcare Function Cognitive Ability Level of Alertness Alert Attention Span Ability Capable of Focused Attention Capable of Sustained Attention Memory Description No Deficits Noted Safety Awareness Underestimates Need for Assistance Problem Solving Ability No deficits Noted Cognitive Comments Cognitive Assessment Comments Pt able to follow multiple commands, vc to keep fww down on the ground instead of lifting it, suggested pt to use main bathroom at home at night versus one down the quick 35ft away. Pt states, Oh I will not use my 's bathroom and will be fine. OT- Vision and Hearing OT- Hearing Assessment OT- Hearing Assessment WFL M7 OT- IP Mobility and Balance Start: 08/19/18 15:34 Freq: Status: Active Protocol: Document 08/19/18 15:37 [facility] (Rec: 08/19/18 15:57 [facility] [id number]) OT- Bed Mobility Assessment Rolling Level of Assistance Standby Assistance Supine to Sit Supine to Sit Assist Standby Assistance Sit to Supine Sit to Supine Assist Standby Assistance Scooting Scooting to Edge of Bed Standby Assistance OT-Transfer Assessment Sit to and From Stand Sit to and from Stand Standby Assistance Transfers Transfer Ability Standby Assistance Comments Mobility Comments SBA for all bed mobility needs , Pt SBA to walk with FWW on even surfaces may need CGA for uneven terrain. Pt getting fatigued, O2 level remained from 93-97% on RA. OT- Balance Assessment Sitting Balance and Reactions Static Sitting Balance Ability Normal Dynamic Sitting Balance Ability Normal Standing Balance and Reactions Static Standing Balance Ability Normal Dynamic Standing Balance Ability Good M8 OT- IP Objective Assessments Start: 08/19/18 15:34 Freq: Status: Active Protocol: Document 08/19/18 15:37 [facility] (Rec: 08/19/18 15:57 [facility] [id number]) OT Gross Range of Motion Upper Extremity Range of Motion Assessment Within Functional Limits OT Strength Upper Extremity Strength Assessment Within Functional Limits Comments Strength Comments BUE 4/5 OT- Coordination Assessment Comments Coordination Comments Intac for groomign needs. OT-Muscle Tone Assessment Muscle Tone WNL Yes M9 OT- IP Assessment and Plan Start: 08/19/18 15:34 Freq: Status: Active Protocol: Document 08/19/18 15:37 [facility] (Rec: 08/19/18 15:57 [facility] [id number]) OT Summary Assessment and Plan Potential Rehabilitation Potential Good Analytic Complexity at Evaluation Low Summary OT Impairments Balance Functional Mobility Dressing Bathing Progress Towards Goals Progressing Toward Goals Assessment Summary Pt has been here due to open cholyecystectomy after attempted lap choly was unsuccessful. Common bile duct exploration and placement of T2 as well as intraoperative choliography. Pt MOD complexity due to significant medical complexity, decreased endurance, strength, and dynamic balance and now needing FWW to walk. Pt doing well and feels once medically stable to go home with 's assist. Therefore pending ability to take care of pt , recommend home with 's assistance versus SNF. Goals Grooming Goal Independent Dressing Goal Independent Toileting Goal Independent Bathing Goal Standby Assistance Toilet Transfer Goal Independent Shower Transfer Goal Contact Guard Assistance Patient/Caregiver Education Goal Demonstrate Post-Op Precautions Caregiver Independent Assisting Patient Days to Meet Goals 5 Frequency of Treatment Frequency Of Treatment Once a Day Treatment Plan OT Treatment Plan ADL Training Functional Mobility Patient/Family Education Discharge Planning Other Treatment Recommendations and Next Family training Treatment Focus Discharge Recommendations OT Discharge Recommendations Home with Assistance Other Discharge Recommendations Pending ability to assist pt for all needs, remote possibility of SNF.
[2018-08-19 17:47] LABS: Add Manual Diff / Slide Review NO; Basophils Percent Auto 0.5 % (0-2); Hematocrit 34.5 % (41-53); Hemoglobin 11.4 g/dL (13.5-17.5); Lymphocytes Percent Auto 10.9 % (25-40); Mean Corpuscular HGB Conc 33.2 % (30-36); Mean Corpuscular Hemoglobin 27.5 PG (26-34); Mean Corpuscular Volume 82.9 fL (80-100); Monocytes Percent Auto 12.1 % (3-14); Neutrophils Absolute Auto 4900 /uL (3000-5900); Neutrophils Percent Auto 74.5 % (50-75); Platelet Count 362 X10^3/uL (150-400); Red Blood Cell Count 4.17 X10^6/uL (4.5-5.9); Red Cell Distribution Width 14.6 % (11.6-14.8); White Blood Cell Count 6.5 X10^3/uL (4.5-11.0)
--- NOTE | 2018-08-19 22:05 | PC.NURSE ---
Pt is A and O x 4, VSS. Pt eating small amounts of mech soft, had small BM today. TPN completed. CBG at 1800 = 142. Pt denies pain, nausea and abdominal discomfort. Incision site is clean and dry, HEMAL. Pt prefers clustered care and minimal interruptions.
[2018-08-20] VITALS (9 sets, daily range): BP systolic 152–195; BP diastolic 74–95; PULSE 82–104; RESP 16–18; TEMP 36.5–37.1; O2SAT 95–98
[2018-08-20] MEDS: METOPROLOL IR 12.5 MG TABLET 25 MG PO (05:47)
[2018-08-20] MEDS: SODIUM CHLORIDE 0.9% 500 ML 21 ML IV (06:15)
[2018-08-20] MEDS: HYDROMORPHONE PCA 6 MG/30 ML PCA.VIAL IV (06:19)
[2018-08-20 06:39] LABS: Blood Urea Nitrogen 15 mg/dL (9-20); Carbon Dioxide 25 mmol/L (22-32); Chloride 105 mmol/L (98-107); Estimated Glomerular Filt Rate > 60.0 mL/min (>60); Glucose 91 mg/dL (80-110); HEMOLYSIS < 15 (0-50); Potassium 4.2 mmol/L (3.4-5.1); Sodium 138 mmol/L (137-145)
--- NOTE | 2018-08-20 09:25 | PN_ITS ---
DATE OF SERVICE: 08/19/2018 Patient's now a week post open common bile duct exploration/cholecystectomy. He has a retained ____ stone, has a T-tube in place. SUBJECTIVE: He's actually feeling well. He has no pain. He's eating a solid diet; at least 3/4 of each meal. He's passing flatus. OBJECTIVE: On exam, he's afebrile. He's anicteric. His T-tube is putting out a normal amount of file. KENDRA drain is putting out modest amount of serosanguineous fluid nonbilious. His abdomen is soft. His incision is healing nicely. PLAN: I've stopped his Unasyn yesterday. We'll stop his metronidazole today, allow his TPN to be discontinued when this current infusion is complete, and rely on his regular diet intake. I've ordered the nurses to allow him to shower with Tegaderm covering his drain and T2. He is recovering quite well. He still has a retained ____ stone which needs to be treated with ERCP in the next few weeks. Yair Kennedy - /edmundo/ doc#: [id number]/job#: [id number] dd: 08/19/2018 12:45:00 dt: 08/20/2018 09:09:00 DICTATING /COPIES TO: Jabier Greenwood MD COPIES MNE: DANIELA
--- NOTE | 2018-08-20 09:28 | PT.IPTN ---
Current Diagnoses Unspecified protein-calorie malnutrition (08/05/18) Hypo-osmolality and hyponatremia (08/05/18) Other specified respiratory disorders (08/05/18) Calculus of bile duct without cholangitis or cholecystitis without obstruction (08/05/18) Cholecystitis, unspecified (08/05/18) Acute pancreatitis without necrosis or infection, unspecified (08/05/18) Other forms of dyspnea (08/05/18) Unspecified abdominal pain (08/05/18) Abnormal findings on diagnostic imaging of other parts of digestive tract (08/05/18) Surgery Performed Operation Date: 08/11/18 12:00 Actual Procedures p Esophagogastroduodenoscopy with biopsy - Tato Lamb MD Operation Date: 08/13/18 08:30 Actual Procedures p Laparoscopic Cholecystectomy with Intraoperative Cholangiograms Converted to open Cholecystectomy with CBD Exploration(Not Applicable) - Tato Lamb MD Physical Therapy Treatment Note M2 PT-IP Current Condition Start: 08/19/18 15:22 Freq: NEEDED Status: Active Protocol: Document 08/19/18 15:20 RCC (Rec: 08/19/18 15:35 RCC [id number]) Physical Therapy Current Condition Current Condition Evaluation Date 08/19/18 Treatment Diagnosis open cholecystectomy 08/13/18, impaired gait tolerance Precautions Abdominal Surgery Precautions Log Roll Lifting Restrictions Gait Belt above Incisional Area Other Precautions drain, T-tube M3 PT-IP Subjective Start: 08/19/18 15:22 Freq: NEEDED Status: Active Protocol: Document 08/20/18 09:00 [facility]B (Rec: 08/20/18 09:28 CLB [id number]) Subjective Physical Therapy Visit Type Type Treatment Note Visit Start Time 09:00 Visit Stop Time 09:18 Total Visit Minutes 18 Number of FENCE REPAIRMAN Visits 1 Physical Therapy Visit Comments Patient Comments Pt willing to ambulate in quick Patient Goals wants to go home M4 PT-IP Mobility and Gait Start: 08/19/18 15:22 Freq: NEEDED Status: Active Protocol: Document 08/20/18 09:00 CLB (Rec: 08/20/18 09:28 CLB [id number]) PT-Bed Mobility Assessment Supine to Sit Supine to Sit Standby Assistance Sit to Supine Sit to Supine Standby Assistance Scooting Scooting to Edge of Bed Independent Scooting Up and Down in Bed Standby Assistance PT-Transfer Assessment Sit to and From Stand Sit to and from Stand Standby Assistance Equipment Transfer Assistive Device Gait Belt Front Wheeled Walker Transfers Transfer Destination Bed Transfer Technique Stand Step Pivot Transfer Ability Level of Assist Standby Assistance Comments Mobility Comments SBA for all bed mobility. Gait Assessment Gait Gait Assistance Required: Standby Assistance Distance (Feet) 280 Assistive Devices Assistive Device Gait Belt Front Wheeled Walker Factors Limiting Gait Function Factors Limiting Gait Function Decreased Activity Tolerance Decreased Strength Comments Gait Comments O2 97% on RA, HR 100-109 after ambulation with c/o SOB that subsided after 3 minutes of resting. Stair Climbing Assessment Comments Stair Climbing Comments Pt has no stairs at home. M5 PT-IP Objective Assessments Start: 08/19/18 15:22 Freq: NEEDED Status: Active Protocol: Document 08/19/18 15:20 RCC (Rec: 08/19/18 15:35 RCC [id number]) Orientation Orientation/Cognition Level of Alertness Alert Strength Comments Strength Comments not tested due to recent surgery but at least 3/5 or greater in the LEs. M6 PT-IP Treatment Start: 08/19/18 15:22 Freq: NEEDED Status: Active Protocol: Document 08/19/18 15:20 RCC (Rec: 08/19/18 15:35 RCC [id number]) Physical Therapy Treatment Education Education Provided Precautions Safety M7 PT-IP Assessment and Plan Start: 08/19/18 15:22 Freq: NEEDED Status: Active Protocol: Document 08/20/18 09:00 [facility]B (Rec: 08/20/18 09:28 CLB [id number]) PT Summary Assessment and Plan Potential Rehabilitation Potential Excellent Status of Condition at Evaluation Evolving Summary Impairments Pain Bed Mobility Transfers Gait Activity Tolerance Assessment Summary Pt tolerated increased ambulation to ~280ft. Encouraged pt to take more frequent walks with nursing staff during the day. Pt had no LOB with gait but needs cues to stay inside walker, pt lists slightly to right during ambulation. Pt is below his prior level of mobility, and would benefit from continued physical therapy during this episode of care to progress his gait tolerance and overall independence prior to d/c. Pt expected to be able to d/c home when medically stable. Goals Bed Mobility Goal Independent Transfer Goal Independent Gait Goal Independent Gait Distance 300 Days to Meet Goals 2 Frequency of Treatment Frequency Of Treatment Once a Day Treatment Plan Physical Therapy Treatment Plan Bed Mobility Training Gait Training Post Op Education Discharge Planning Recommendations To Nursing Amount of Assist Needed Independent Standby Assistance 1 Person Assist Discharge Recommendations PT Discharge Recommendations Home with Assistance
--- NOTE | 2018-08-20 09:32 | PN_ITS ---
DATE OF SERVICE: 08/20/2018 Patients resting comfortably in bed. He has a retained ____ stone, a T-tube draining bile, Dhruv Gutierrez draining no bile just serosanguineous minimum fluid. He's increased his oral intake considerably, eating very well at this point. I've stopped his TPN. He's not using his FLAT GRINDER OPERATOR for analgesia, so I've stopped the FLAT GRINDER OPERATOR. The patient will just take Tylenol for discomfort. I believe he's close to being discharged once arrangements are made for him to have an ERCP for ____ stone extraction, possible stent placement. He's doing very well at this point Yair Kennedy - Edith/ doc#: [id number]/job#: [id number] dd: 08/20/2018 09:02:00 dt: 08/20/2018 09:25:00 DICTATING /COPIES TO: Jabier Greenwood MD COPIES MNE: DANIELA
[2018-08-20] MEDS: ENOXAPARIN 40 MG/0.4 ML SYRINGE SUBCUT (10:18)
[2018-08-20] MEDS: PANTOPRAZOLE 40 MG VIAL 20 MG IV ×2 (10:18→20:35)
--- NOTE | 2018-08-20 11:55 | PM.PN.1 ---
Subjective Date Patient Seen: 08/20/18 Time Patient Seen: 11:55 Interval history: He is seen in his room today to follow up the protein malnutrition, gallstone pancreatitis, COPD, hypokalemia. His potassium has risen from 3.0 up to 4.2 with the additional oral potassium yesterday. Surgery has stopped his MARKETING COMMUNITY LIAISON and his TPN. He is eating adequately although not vigorously yet. The current plan is for ERCP with stone extraction elsewhere soon. His albumin is stable at 0.9. Exam Vital Signs (past 8 hours): - 08/20/18 04:00 08/20/18 07:30 08/20/18 07:40 Temperature 97.7 F 98.0 F Pulse Rate 104 H 82 Respiratory Rate 16 17 Blood Pressure 195/90 H 175/95 H Pulse Oximetry 96 98 96 Fraction of Inspired Oxygen 21 Oxygen Delivery Method Room Air Oxygen Flow Rate 0 Narrative Exam Narrative: Alert and oriented x3, heart regular rate and rhythm without murmur. Lungs clear to auscultation bilaterally. Abdomen soft bowel sounds positive nontender with a T-tube drain in place. Extremities have no ankle edema. Blood pressure is running high at 195/90 and 175/95 Objective Labs Result Diagrams: 08/19/18 17:30 08/20/18 06:20 Labs: Laboratory Results - last 24 hr 08/19/18 08/20/18 17:30 06:20 WBC 6.5 RBC 4.17 L Hgb 11.4 L Hct 34.5 L MCV 82.9 MCH 27.5 MCHC 33.2 RDW 14.6 Plt Count 362 Neut % (Auto) 74.5 Lymph % (Auto) 10.9 L [place] % (Auto) 12.1 Eos % (Auto) 2.0 Baso % (Auto) 0.5 Neut # (Auto) 4900 Sodium 138 Potassium 4.2 D Chloride 105 Carbon Dioxide 25 BUN 15 Creatinine 0.50 L Estimated GFR > 60.0 BUN/Creatinine Ratio 30.0 H Glucose 91 Calcium 8.0 L Assessment & Plan Plan: Assessment/Plan Narrative: 1. POD 7 OPEN CHOLECYSTECTOMY AFTER ATTEMPTED LAP CHOLY WAS UNSUCCESSFUL, COMMON BILE DUCT EXPLORATION AND PLACEMENT OF T2 WELL INTRAOPERATIVE CHOLANGIOGRAPHY. UNSUCCESSFUL EXTRACTION OF DISTAL COMMON BILE DUCT STONE -pending ERCP as outpatient as arranged by surgery. 2. ACUTE GALLSTONE PANCREATITIS , CHOLELITHIASIS, AND CHOLEDOCHOLITHIASIS S/P SURGICAL PROCEDURES ABOVE RESOLVED STATUS POST SURGERY MENTIONED ABOVE 3. COPD/EMPHYSEMA NO SIGNIFICANT RESPIRATORY PROBLEMS. ON NEB TREATMENTS 4. RIGHT UPPER LOBE AND LEFT UPPER LOBE PARTIALLY CALCIFIED MASSES 5. CAVITARY LESION WITH INTERNAL AIR FLUID LEVEL LEFT LUNG APEX 6. F/E/N-ORAL protein calorie malnutrition - the extremely low albumin is noted. He does not look as ill as that would imply. He seems to be eating adequately. Surgery is following him closely. 7. HYPOKALEMIA Corrected with oral plus TPN potassium yesterday. 8. Hypertension - will increase metoprolol up to 50 mg b.i.d.
--- NOTE | 2018-08-20 12:17 | CM.DPC ---
DCP Cont: in visiting with patient. Patient may be discharging home tomorrow. Will follow up at [facility] regarding removal of gallstone. Patient will also be returning home with drains, no IV. Patient is to be educated, as well as , how to empty drains upon discharge. Physical therapy has also been working with patient, and stated that he has improved on his mobility. Patient is alert and pleasant, stated that he is ready to go home. P: DCP to continue to follow closely. Could consider home health if needed, nursing to evaluate drains. Cinda Kramer RN/Truck Mechanic
--- NOTE | 2018-08-20 13:51 | PC.NURSE ---
Post-op: IVF saline locked. OUTSIDE OPERATOR d/c. Has not needed any further medication for pain. Has tylenol ordered but it has been declined each time offered. has been up and amb and sat in the chair for several hours. Pt reports he is feeling better today and has a little better appetite, he did eat at [facility] and lunch. Watching football at the moment, cont w/poc.
[2018-08-20] MEDS: METOPROLOL IR 50 MG TABLET PO (20:35)
[2018-08-21 01:05] VITALS: BP 162/72; PULSE 80; RESP 16; TEMP 37.1; O2SAT 97
[2018-08-21 05:10] VITALS: BP 163/77; PULSE 90; RESP 16; TEMP 36.9; O2SAT 96
[2018-08-21 08:38] VITALS: O2SAT 97
--- NOTE | 2018-08-21 09:06 | PT.IPTN ---
Current Diagnoses Unspecified protein-calorie malnutrition (08/05/18) Hypo-osmolality and hyponatremia (08/05/18) Other specified respiratory disorders (08/05/18) Calculus of bile duct without cholangitis or cholecystitis without obstruction (08/05/18) Cholecystitis, unspecified (08/05/18) Acute pancreatitis without necrosis or infection, unspecified (08/05/18) Other forms of dyspnea (08/05/18) Unspecified abdominal pain (08/05/18) Abnormal findings on diagnostic imaging of other parts of digestive tract (08/05/18) Surgery Performed Operation Date: 08/11/18 12:00 Actual Procedures p Esophagogastroduodenoscopy with biopsy - Tato Lamb MD Operation Date: 08/13/18 08:30 Actual Procedures p Laparoscopic Cholecystectomy with Intraoperative Cholangiograms Converted to open Cholecystectomy with CBD Exploration(Not Applicable) - Tato Lamb MD Physical Therapy Treatment Note M2 PT-IP Current Condition Start: 08/19/18 15:22 Freq: NEEDED Status: Active Protocol: Document 08/19/18 15:20 RCC (Rec: 08/19/18 15:35 RCC [id number]) Physical Therapy Current Condition Current Condition Evaluation Date 08/19/18 Treatment Diagnosis open cholecystectomy 08/13/18, impaired gait tolerance Precautions Abdominal Surgery Precautions Log Roll Lifting Restrictions Gait Belt above Incisional Area Other Precautions drain, T-tube M3 PT-IP Subjective Start: 08/19/18 15:22 Freq: NEEDED Status: Active Protocol: Document 08/21/18 08:40 CLB (Rec: 08/21/18 09:06 CLB [id number]) Subjective Physical Therapy Visit Type Type Treatment Note Visit Start Time 08:40 Visit Stop Time 08:55 Total Visit Minutes 15 Number of GEOGRAPHY TEACHER Visits 2 Physical Therapy Visit Comments Patient Comments Pt willing to ambulate in quick Patient Goals wants to go home M4 PT-IP Mobility and Gait Start: 08/19/18 15:22 Freq: NEEDED Status: Active Protocol: Document 08/21/18 08:40 CLB (Rec: 08/21/18 09:06 CLB [id number]) PT-Bed Mobility Assessment Supine to Sit Supine to Sit Independent Scooting Scooting to Edge of Bed Independent PT-Transfer Assessment Sit to and From Stand Sit to and from Stand Standby Assistance Equipment Transfer Assistive Device Gait Belt Front Wheeled Walker Transfers Transfer Destination Chair Transfer Ability Level of Assist Standby Assistance Comments Mobility Comments IND-SBA for all bed mobility and transfers. Gait Assessment Gait Gait Assistance Required: Standby Assistance Distance (Feet) 200 Assistive Devices Assistive Device Gait Belt Front Wheeled Walker Factors Limiting Gait Function Factors Limiting Gait Function Decreased Activity Tolerance Decreased Strength Comments Gait Comments Pt felt a little wheezy after ~100ft but did not seem SOB. Pt rested then continues walking. O2 on RA 97%. Stair Climbing Assessment Comments Stair Climbing Comments Pt has no stairs at home. M5 PT-IP Objective Assessments Start: 08/19/18 15:22 Freq: NEEDED Status: Active Protocol: Document 08/19/18 15:20 RCC (Rec: 08/19/18 15:35 RCC [id number]) Orientation Orientation/Cognition Level of Alertness Alert Strength Comments Strength Comments not tested due to recent surgery but at least 3/5 or greater in the LEs. M6 PT-IP Treatment Start: 08/19/18 15:22 Freq: NEEDED Status: Active Protocol: Document 08/19/18 15:20 RCC (Rec: 08/19/18 15:35 RCC [id number]) Physical Therapy Treatment Education Education Provided Precautions Safety M7 PT-IP Assessment and Plan Start: 08/19/18 15:22 Freq: NEEDED Status: Active Protocol: Document 08/21/18 08:40 CLB (Rec: 08/21/18 09:06 CLB [id number]) PT Summary Assessment and Plan Potential Rehabilitation Potential Excellent Status of Condition at Evaluation Evolving Summary Impairments Pain Bed Mobility Transfers Gait Activity Tolerance Assessment Summary Pt with good standing and dynamic balance with FWW this session. Pt c/o feeling wheezy during gait but did not seem SOB as with yesterdays tx. Pt is IND-SBA for all transfers and bed mobility. Pt seems able to d/c home with assist when medically stable. Goals Bed Mobility Goal Independent Transfer Goal Independent Gait Goal Independent Gait Distance 300 Days to Meet Goals 2 Frequency of Treatment Frequency Of Treatment Once a Day Treatment Plan Physical Therapy Treatment Plan Bed Mobility Training Gait Training Post Op Education Discharge Planning Recommendations To Nursing Amount of Assist Needed Standby Assistance 1 Person Assist Discharge Recommendations PT Discharge Recommendations Home with Assistance
[2018-08-21] MEDS: ENOXAPARIN 40 MG/0.4 ML SYRINGE SUBCUT (09:24)
[2018-08-21] MEDS: METOPROLOL IR 50 MG TABLET PO (09:25)
[2018-08-21] MEDS: PANTOPRAZOLE 40 MG VIAL 20 MG IV (09:28)
[2018-08-21 10:05] VITALS: BP 149/59; PULSE 76; RESP 18; TEMP 36.4; O2SAT 95
[2018-08-21 11:18] VITALS: BP 153/54; PULSE 70; RESP 17; TEMP 36.7; O2SAT 97
--- NOTE | 2018-08-21 11:42 | OT.IP.TRT ---
Current Diagnoses Unspecified protein-calorie malnutrition (08/05/18) Hypo-osmolality and hyponatremia (08/05/18) Other specified respiratory disorders (08/05/18) Calculus of bile duct without cholangitis or cholecystitis without obstruction (08/05/18) Cholecystitis, unspecified (08/05/18) Acute pancreatitis without necrosis or infection, unspecified (08/05/18) Other forms of dyspnea (08/05/18) Unspecified abdominal pain (08/05/18) Abnormal findings on diagnostic imaging of other parts of digestive tract (08/05/18) Surgery Performed Operation Date: 08/11/18 12:00 Actual Procedures p Esophagogastroduodenoscopy with biopsy - Tato Lamb MD Operation Date: 08/13/18 08:30 Actual Procedures p Laparoscopic Cholecystectomy with Intraoperative Cholangiograms Converted to open Cholecystectomy with CBD Exploration(Not Applicable) - Tato Lamb MD Occupational Therapy Treatment Note M2 OT-IP Current Condition Start: 08/19/18 15:34 Freq: Status: Active Protocol: Document 08/19/18 15:37 [facility] (Rec: 08/19/18 15:57 [facility] [id number]) Occupational Therapy Current Condition Current Condition Evaluation Date 08/19/18 Treatment Diagnosis Acute gallstone pancreatitis. Diagnosis Onset Date 08/05/18 Post Operative Precautions Abdominal Surgery Precautions Log Roll Lifting Restrictions Gait Belt above Incisional Area Other Precautions drain, T-tube M3 OT- IP Subjective and Pain Start: 08/19/18 15:34 Freq: Status: Active Protocol: Document 08/21/18 11:39 [facility] (Rec: 08/21/18 11:42 [facility] [id number]) OT- Subjective Occupational Therapy Visit Type Type Administrative Note Notes Pt states has been using the bathroom on his own and had a shower today with nursing assist. Pt , therapist, and nursing agree that OT services not needed for pt and that he is doing well and to be able to assist pt at home. Discharge pt from OT services.
[2018-08-21 13:54] VITALS: BMI 19.5
--- NOTE | 2018-08-21 14:55 | CM.DPC ---
DCP: continued: d/c to home order is noted. EMR reviewed but no d/c summary or notes are in yet by Dr. Lamb or hospitalist Dr. Sears. Pt confirms that Dr. Lamb was in earlier, took his alpa out and said he was fine for home today. Pt continues with drain in place. He says he is comfortable going home with this but both, and especially Alana, say they have not yet been shown how to care for this. Discussed this with RN Luis who confirms that pt will be taught drain care before he leaves and he should expect to d/c sometime during the evening shift. Both are agreeable to same. P: home after teach and followup with Dr. Lamb in clinic.
--- NOTE | 2018-08-21 17:26 | PM.PN.1 ---
Subjective Date Patient Seen: 08/21/18 Time Patient Seen: 12:43 Interval history: Patient denies any new complaints. Tolerating a diet. Reports normal bowel bladder function. Pain is essentially minimal at this point he is not requiring any narcotics. No nausea or vomiting. Drains are functioning well. He is ambulating without significant difficulty. He is anxious to be discharged home. Exam Vital Signs (past 8 hours): - 08/21/18 10:05 08/21/18 11:18 Temperature 97.5 F L 98.1 F Pulse Rate 76 70 Respiratory Rate 18 17 Blood Pressure 149/59 H 153/54 H Pulse Oximetry 95 97 Fraction of Inspired Oxygen 21 Oxygen Delivery Method Room Air Oxygen Flow Rate 0 Narrative Exam Narrative: Well-nourished but thin male in no acute distress lying comfortably in the gurney. He has just finished his lunch tray at the time of my visit. Alert oriented x3. He is in good spirits today. Afebrile with no tachycardia. Blood pressure is normal. Sclera nonicteric Few coarse rhonchi but clear with cough. No wheezes. Regular rate and rhythm Abdomen soft, nondistended, no masses. Incisions are clean, dry, and intact without erythema or ecchymosis. No hematomas. No wound drainage. Alpa remain in place. Drain sites are clean. Dhruv-Gutierrez drain is collecting serous fluid only. T-Tube is collecting seda bile as anticipated. Abdomen is appropriately tender to palpation. No guarding or rebound Extremities show no clubbing, cyanosis, or edema Objective Labs Result Diagrams: 08/19/18 17:30 08/20/18 06:20 Labs: No new laboratory or radiographic studies for review today Assessment & Plan Plan: Assessment/Plan Narrative: 78-year-old male now postoperative day 8 from open cholecystectomy with intraoperative cholangiography, common bile duct exploration with unsuccessful stone extraction, and placement of T-tube who is now doing well. I plan leave the T-tube and drain in place for now. He may continue diet without restriction. Continue his usual home medications. Ambulate as tolerated. No heavy lifting more than 20 lb until further notice. T tube will remain to gravity drainage. No evidence of bile leak around the T-tube at this stage. No evidence of further infection or other issues. I have discussed his case with the gastroenterology service, Dr. Milton. He agrees with ERCP. However, we would plan to perform the study approximately 6 weeks after surgery. I removed the patient's alpa today and applied Steri-Strips. I discussed anticipated ongoing wound healing. He will follow up with me in 2 weeks in the clinic. We will arrange ERCP as above. Possibly clamp the T-tube in the interim as an outpatient since the stone was not obstructing the bile duct but leave the Dhruv-Gutierrez in place. However, we will assess that in the clinic at the time of his postoperative visit. I instructed the patient to call or return sooner for any fever, chills, recurrent progressive abdominal pain, nausea, vomiting, lack of bowel function, or inability to tolerate a diet. All questions were otherwise answered to his satisfaction, and he voiced understanding. He will follow up with me as above and likely be discharged later today.
--- NOTE | 2018-08-21 19:48 | P.DS_ITS ---
History of Present Illness Chief complaint: bad stomach aches x9 days Narrative: 78-year-old male presents with increasing abdominal pain and weight loss. He has had severe abdominal discomfort and pain mostly in the right upper quadrant area for the past 10 days but he has had symptoms of decreased appetite and discomfort for a couple of months he says he has lost 30/30 lb in the past 2 months. He can no longer eat anything even half a sandwich causes pain and causes him to not want to eat anything. He has not had any vomiting with this but early satiety and increased abdominal pain. He does note a chronic cough also Discharge Providers Date of admission: 08/05/18 19:47 Consults: 08/06/18 12:45 Consult to Dietitian, Adult Routine Comment: Reason For Exam: severe protein janusz malnutrtion 08/11/18 16:22 Consult to Physician Routine Comment: Consulting Provider: Tato Paredes Reason for consultation: stomach pain; possible lap mary Has provider been notified: Yes 08/19/18 12:46 Consult to Occupational Therapy Evaluate & Treat Comment: Physician Instructions: Evaluate and treat Consult to Physical Therapy Evaluate & Treat Comment: Physician Instructions: Evaluate and Treat 08/19/18 14:08 Consult to Physical Therapy Evaluate & Treat Comment: Physician Instructions: Evaluate and Treat Discharge provider: Joe Sears MD Discharge Date: 08/21/18 Summary Discharge Diagnosis: 1. Acute gallstone pancreatitis 2. Acute cholecystitis 3. Acute Clostridium difficile colitis 4. Chronic hypertension 5. Cigarette dependence 6. [id number] Operative Note Patient: Yair Kennedy MR#: [id number] : 1940 Acct:[id number] Age/Sex: 78 / M Date of Service: 08/05/18 Provider: Tato Lamb MD Operative Date/Time/Diagnoses Date of procedure: 08/13/18 Time of procedure: 14:04 Pre-op diagnosis: Gallstone pancreatitis Post-op diagnosis: other (Gallstone pancreatitis with acute cholecystitis and retained choledocholithiasis) Procedure & Clinicians Procedure: 1. Attempted laparoscopic intraoperative cholangiography and cholecystectomy converted to open cholecystectomy 2. Common bile duct exploration with placement of size 20 T-tube and completion intraoperative cholangiography 3. Unsuccessful extraction of distal common bile duct stone Same procedure as scheduled: Yes Indications: 78-year-old male who presented with gallstone pancreatitis. His case is also complicated by significant COPD and pulmonary cavitating nodules initially thought to be possibly consistent with tuberculosis. He was placed in isolation and treated for such. Tests of ventrally showed no evidence of TB and precautions were lifted. Patient's pancreatitis slowly improved with bowel rest, IV fluid resuscitation, antibiotics, and TPN support. Further imaging including CT scan of the abdomen was suspicious for possible gastric wall thickening and potential neoplasm. Therefore EGD was done initially which showed no evidence of any disease or neoplasms in the stomach. His liver function tests improved dramatically with a normal bilirubin. Therefore a window of opportunity existed for cholecystectomy. He was recommended to undergo laparoscopic cholecystectomy with intraoperative cholangiography. Surgeon: Tato Lamb Click Yes if Unassisted: Yes Anesthesia Type: General Operative Notes Findings: 1. Markedly thickened and edematous gallbladder consistent with acute on chronic cholecystitis 2. Gallbladder completely packed with multiple gallstones 3. Mildly dilated cystic duct with intraoperative cholangiography showing dilated common bile duct and proximal hepatic ducts 4. Intraoperative cholangiography consistent with choledocholithiasis in the distal common bile duct just above the ampulla of Vater, not obstructing 5. Completion cholangiography after placement of T-tube demonstrating persistent stone but not obstructing. Closure Type: primary Specimen(s): other (Gallbladder and gallstones) Implants & Drains: 1. #10 Dhruv-Gutierrez drain in right upper quadrant to bulb suction 2. Size 20 T-tube in common bile duct placed to gravity drainage Applied: drain(s) (As above) Estimated Blood Loss (mL): 100 Chest abdomen and pelvis CT 08/05/2018: 1. Diagnostic sensitivity of study for causes of weight loss and early satiety diminished secondary to absence of oral contrast. 2. Right upper lobe and left upper lobe partially calcified masses which could represent a parenchymal scarring versus neoplastic process. 3. Cavitary lesion with internal air fluid level in the left lung apex which should represent infectious or neoplastic process. 4. Proximal gastric wall thickening which could be due to nondistention, gastritis or infiltrating malignancy. Recommend endoscopy or barium contrast upper GI series for further evaluation. 5. Inflammatory changes along the inferior margin of the stomach and superior margin of the pancreas which could be secondary to gastritis or pancreatitis. Please correlate with laboratory data. 6. Cholelithiasis with gallbladder wall prominence. There is clinical concern for cholecystitis, recommend abdominal ultrasound for further evaluation. 7. Colonic diverticulosis without evidence of diverticulitis. 8. Large right inguinal hernia which contains unremarkable appearing loops of small bowel. 9. Severe bilateral lung emphysematous disease. 10. Atherosclerosis including the coronary vasculature. Hospital Course: 1. POD 7 OPEN CHOLECYSTECTOMY AFTER ATTEMPTED LAP CHOLY WAS UNSUCCESSFUL, COMMON BILE DUCT EXPLORATION AND PLACEMENT OF T2 WELL INTRAOPERATIVE CHOLANGIOGRAPHY. UNSUCCESSFUL EXTRACTION OF DISTAL COMMON BILE DUCT STONE -pending ERCP as outpatient as arranged by surgery. He will follow up with Dr. Milad Lamb in about 2 weeks. 2. ACUTE GALLSTONE PANCREATITIS , CHOLELITHIASIS, AND CHOLEDOCHOLITHIASIS S/P SURGICAL PROCEDURES ABOVE RESOLVED STATUS POST SURGERY MENTIONED ABOVE 3. COPD/EMPHYSEMA NO SIGNIFICANT RESPIRATORY PROBLEMS. Encouraged to quit smoking though he did gain close to 30 lb last time he quit a couple of years ago. 4. RIGHT UPPER LOBE AND LEFT UPPER LOBE PARTIALLY CALCIFIED MASSES -parenchymal scarring (likely) versus neoplastic process 5. CAVITARY LESION WITH INTERNAL AIR FLUID LEVEL LEFT LUNG APEX -unknown chronicity, could represent infectious or neoplastic process, further workup can be undertaken as outpatient 6. F/E/N-ORAL protein calorie malnutrition - the extremely low albumin is noted. He does not look as ill as that would imply. He seems to be eating adequately. 7. HYPOKALEMIA Resolved 8. Hypertension - discharged on oral lisinopril Patient will have postop follow-up with Dr. Lamb in about 2 weeks, as noted above. He is also encouraged to establish care with PCP. He would like to be seen at [facility] Status at Discharge Functional status at discharge: independent ambulation Overall status at discharge: patient is back to baseline Time Spent with Patient Greater than 30 minutes Exam Vital Signs (past 8 hours): Fraction of Inspired Oxygen 21 Oxygen Delivery Method Room Air Oxygen Flow Rate 0 Objective Labs Result Diagrams: 08/19/18 17:30 08/20/18 06:20 Discharge Plan Discharge Plan Patient Disposition: Home Discharge Med Rec/Prescriptions Prescriptions: New acetaminophen [Tylenol] 325 mg tablet 650 mg PO Q6H PRN (Reason: pain, mild) Qty: 30 RF: 0 lisinopril 20 mg tablet 20 mg PO DAILY Qty: 30 RF: 0 docusate sodium 100 mg capsule 100 mg PO BID Qty: 30 RF: 0 Follow up/Referrals: Tato Lamb MD [Physician] - 2 Weeks (Per Dr Lamb Follow up Sep 04 at 1:15pm.) Provider Discharge Instructions Diet: Diet as Tolerated Visit Report/Discharge Packet Instructions: Anatomy of a Gallstone, Endoscopic Retrograde Cholangiopancreatography, Gallstones, DI for Cholecystectomy, DI for Laparoscopy , DI for Gallbladder or Biliary Tubes, How to Care for Your Gallbladder or Biliary Tubes Stand Alone Forms: Surgery Discharge Visit Report Forms: Stroke Signs & Symptoms Discharge Data Attending Provider: Tato Paredes Admit Date/Time: 08/05/18 19:47 Discharges patient from system. Discharge Date/Time: 08/21/18 17:00
== END 2018-08-21 17:00 | disposition home or self-care (01) | DRG 408 ==
LOC: ED 19:40 → AC 08-06 12:27 → ICU 07-02 14:21
PROVIDERS: Family Medicine; Internal Medicine; Nurse Practitioner Gerontology; Specialist; Surgery; Admitting Provider Internal Medicine; Emergency Provider Internal Medicine; Referring Provider Surgery; Visit Provider Internal Medicine
PROC: 0DJ08ZZ Inspection of Upper Intestinal Tract, Via Natural or Artificial Opening Endoscopic (ICD-10-PCS; CPT 43235; principal; 2018-08-11 12:00)
PROC: 0FT44ZZ Resection of Gallbladder, Percutaneous Endoscopic Approach (ICD-10-PCS; CPT 47562; principal; 2018-08-13 08:30)
DX: K80.66 Calculus of gallbladder and bile duct with acute and chronic cholecystitis without obstruction (principal); J18.9 Pneumonia, unspecified organism; K85.10 Biliary acute pancreatitis without necrosis or infection; E43 Unspecified severe protein-calorie malnutrition; Z68.1 Body mass index [BMI] 19.9 or less, adult; E87.1 Hypo-osmolality and hyponatremia; K40.90 Unilateral inguinal hernia, without obstruction or gangrene, not specified as recurrent; Z68.20 Body mass index [BMI] 20.0-20.9, adult; J98.4 Other disorders of lung; F17.210 Nicotine dependence, cigarettes, uncomplicated; Z66 Do not resuscitate; J44.9 Chronic obstructive pulmonary disease, unspecified; Z53.31 Laparoscopic surgical procedure converted to open procedure; E87.6 Hypokalemia; I10 Essential (primary) hypertension; R91.8 Other nonspecific abnormal finding of lung field
CPT/HCPCS: 36415; 36569; 36591; 36592; 43239; 47610; 71045; 71260; 74177; 74300; 76001; 80048; 80053; 82150; 82962; 83605; 83690; 83735; 83880; 84100; 84145; 84484; 85025; 85651; 86480; 87040; 87070; 87116; 87205; 87797; 88304; 88305; 88342; 93005; 93010; 94640; 94760; 94762; 96361; 96374; 96375; 97116; 97162; 97166; 99222; 99232; 99283; 99285; 99406; B4189; C9113; J0295; J0690; J1170; J1642; J1650; J1940; J2250; J2405; J2704; J3010; J3475; J3480; Q9967

== ENCOUNTER 2018-08-22 21:09 | Inpatient (IN) | payer MEDICARE, OTHER, SELFPAY ==
[2018-08-21 12:59] VITALS: BMI 18.3
[2018-08-22] VITALS (8 sets, daily range): BP systolic 109–146; BP diastolic 55–85; PULSE 80–134; RESP 18–33; TEMP 36.4; O2SAT 97–100
--- NOTE | 2018-08-22 21:10 | DI.CT.S_ITS ---
PROCEDURE: CT HEAD/BRAIN WO CON INDICATIONS: Weakness, can't move left leg TECHNIQUE: Noncontrast 4.5 mm thick angled axial sections acquired from the foramen magnum to the vertex, with coronal and sagittal reformats. For radiation dose reduction, the following was used: automated exposure control, adjustment of mA and/or kV according to patient size. COMPARISON: None. FINDINGS: Image quality: Excellent. CSF spaces: Basal cisterns are patent. No extra-axial fluid collections. The ventricles are symmetric in size and shape. Brain: No intracranial bleeds or masses. There is cerebral volume loss for age, with resultant ventricular and sulcal prominence. There are periventricular and deep white matter chronic small vessel ischemic changes. There is intracranial internal carotid artery atherosclerosis. Skull and face: Calvarium and visualized facial bones appear intact, without suspicious lesions. Underpneumatized right maxillary sinus with mild mucosal thickening. IMPRESSION: No acute intracranial process. Dictated by: Mehdi Mehta M.D. on 08/23/2018 at 7:12 Approved by: Mehdi Mehta M.D. on 08/23/2018 at 7:13
[2018-08-22 21:23] LABS: Add Manual Diff / Slide Review NO; Basophils Percent Auto 0.3 % (0-2); Eosinophils Percent Auto 0.9 % (2-4); Hematocrit 42.4 % (41-53); Hemoglobin 13.7 g/dL (13.5-17.5); Lymphocytes Percent Auto 10.2 % (25-40); Mean Corpuscular HGB Conc 32.2 % (30-36); Mean Corpuscular Hemoglobin 26.8 PG (26-34); Mean Corpuscular Volume 83.2 fL (80-100); Neutrophils Absolute Auto 9500 /uL (3000-5900); Neutrophils Percent Auto 79.6 % (50-75); Platelet Count 467 X10^3/uL (150-400); Red Cell Distribution Width 15.7 % (11.6-14.8)
--- NOTE | 2018-08-22 21:23 | DI.CT.S_ITS ---
PROCEDURE: 1. CT angiography of the chest. 2. CT angiography of the abdomen. 3. CT angiography of the pelvis. 4. CT angiography of the right lower extremity. 5. CT angiography of the left lower extremity. INDICATIONS: left leg no pulse no femoral pulse TECHNIQUE: Arterial phase intravenous contrast-enhanced images of the chest, abdomen, pelvis, right lower extremity, and left lower extremity is performed. Data is reconstructed in sagittal, axial, and coronal sections. COMPARISON: None. FINDINGS: Image quality: Suboptimal opacification of the vasculature. CT angiography of the chest: Thyroid is grossly unremarkable. No supraclavicular, axillary, mediastinal, nor hilar adenopathy. Heart size is normal. There is calcification of the coronary vasculature. Thoracic aorta demonstrates moderate diffuse plaque and mild diffuse stenosis. Pulmonary arteries are normal in size. There is severe apical dominant emphysema. There is a subpleural nodular density which is partially cavitary within the left apex posteriorly measuring roughly 48 mm. Within the left apex laterally, there is a subpleural nodular density measuring 28 mm. Scarring within the left lung base posteriorly is present. CT angiography of the abdomen: Liver is within normal limits. Status post cholecystectomy. Small amount of postsurgical fluid and gas within the cholecystectomy bed. There is non-enhancement of the pancreatic tail and distal body, as well as a small amount of peripancreatic fat stranding adjacent to the tail. A 9 mm diameter region of calcification within the pancreatic body at the junction of the enhancing and nonenhancing pancreas is present. The pancreatic duct peripheral to this calculus is dilated to 5 mm. Bilateral adrenals and bilateral kidneys are within normal limits. No hydronephrosis. Bilateral ureters are nondistended as visualized. The no adenopathy. Stomach is mildly distended. Duodenum is mildly distended. Remainder of small bowel is grossly unremarkable. No free fluid. Right upper quadrant surgical drains are present. Appendix is not seen. No evidence of appendicitis. The colon is nondistended. Diverticulosis of the descending and sigmoid colon is present with no evidence of acute diverticulitis. There is severe atherosclerotic calcification of the abdominal aorta, causing mild diffuse stenosis. The celiac, and superior mesenteric arteries are patent. 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 There are 2 right renal arteries which are mildly stenotic. There are 2 left renal arteries, which are mildly stenotic. CT angiography of the pelvis: Visualized bowel loops are normal in caliber and wall thickness. There is a bowel containing right inguinal hernia measuring roughly 66 mm diameter without evidence of associated bowel strangulation, nor obstruction. No inguinal adenopathy. Urinary bladder is grossly unremarkable. Right: The common iliac artery demonstrates mild aneurysmal dilatation measuring 13 mm, and is mildly diffusely stenotic secondary to severe diffuse plaque. There is multifocal moderate to high-grade stenosis of the right internal iliac artery. Right external iliac artery demonstrates severe diffuse plaque and mild to moderate stenosis. Left: The left common iliac artery demonstrates severe diffuse plaque and mild diffuse stenosis, as well as mild aneurysmal dilatation distally, measuring 13 mm. Left internal iliac artery demonstrates a high grade origin stenosis and moderate diffuse stenosis within the remainder. Left external iliac artery demonstrates severe diffuse plaque as well as multifocal moderate and high grade stenoses. Bilateral lower extremity runoff evaluation: Right: The common femoral artery demonstrates severe diffuse plaque and mild diffuse stenosis. Profundofemoral artery demonstrates a moderate origin stenosis. Superficial femoral artery demonstrates severe diffuse plaque. There is a high-grade stenosis within the proximal superficial femoral artery which is otherwise mildly to moderately diffusely stenotic. There is occlusion of the distal superficial femoral artery and above-knee popliteal artery. Below knee popliteal artery is suboptimally opacified but grossly patent. There is some flow seen within the anterior tibial and posterior tibial arteries as well as the peroneal artery, but assessment for stenoses is limited. Left: There is severe diffuse plaque within the common femoral artery, causing moderate diffuse stenosis. Severe eccentric stenosis within the distal common femoral artery secondary to calcific plaque is present. High-grade profundofemoral artery origin stenosis. High grade superficial femoral artery origin stenosis. Moderate diffuse stenosis within the superficial femoral artery. Above and below knee popliteal artery suboptimally opacified, but at least moderately stenotic. There is flow seen within the runoff vessel but are suboptimally evaluated secondary to suboptimal opacification. IMPRESSION: 1. Severe emphysema with superimposed left apical densities, possibly representing malignancy; further assessment with PET CT examination is recommended. 2. Right thigh posterior compartment mass as described above, which could be further assessed with MRI with and without intravenous contrast, if clinically indicated. 3. Findings suggestive of an obstructing calculus within the pancreatic body/tail junction, with associated necrosis/pancreatitis of the pancreatic tail and peripheral body. There is associated pancreatic ductal dilatation as described above. 4. Right inguinal bowel containing hernia without evidence of associated bowel strangulation, nor obstruction. 5. Bilateral iliac artery aneurysms as described above. 6. Bilateral pelvic inflow stenoses. 7. Bilateral outflow stenoses. 8. Suboptimal evaluation of the runoff vessels. 9. Postsurgical sequelae. 10. Occluded inferior mesenteric artery. 11.Concordant with preliminary interpretation. Dictated by: Taylor Cerrato M.D. on 08/23/2018 at 8:55 Approved by: Taylor Cerrato M.D. on 08/23/2018 at 9:38
[2018-08-22 21:29] LABS: INR 1.2 (0.9-1.3); Prothrombin Time 12.7 SECONDS (10.1-12.7)
[2018-08-22 21:32] LABS: PTT Partial Thromboplastin Tim 30 SECONDS (26.4-36.2)
[2018-08-22 21:34] LABS: Alanine Aminotransferase 37 IU/L (21-72); Albumin 3.6 g/dL (3.5-5.0); Albumin Globulin Ratio 1.2 (1.0-2.8); Alkaline Phosphatase 83 U/L (38-126); Aspartate Aminotransferase 35 IU/L (17-59); Bilirubin Total 0.5 mg/dL (0.2-1.3); Blood Urea Nitrogen 16 mg/dL (9-20); Carbon Dioxide 26 mmol/L (22-32); Chloride 104 mmol/L (98-107); Creatine Kinase 62 U/L (55-170); Estimated Glomerular Filt Rate > 60.0 mL/min (>60); Globulin 3.1 g/dL (1.7-4.1); Glucose 159 mg/dL (80-110); HEMOLYSIS < 15 (0-50); Lipase 989 U/L (23-300); Potassium 3.9 mmol/L (3.4-5.1); Sodium 142 mmol/L (137-145); Total Protein 6.7 g/dL (6.3-8.2)
[2018-08-22] MEDS: dilTIAZem 5 MG/ML SDV 10 MG IV (21:39)
[2018-08-22] MEDS: SODIUM CHLORIDE 0.9% 1,000 ML 100 ML IV (21:40)
[2018-08-22 21:45] LABS: Troponin I 0.015 ng/mL (0.01-0.034)
--- NOTE | 2018-08-22 22:04 | PC.NURSE ---
Diltiazem added to allergy list r/t hives and itching after ivpush dose. Resolved w/o intervention.
[2018-08-22] MEDS: ALBUTEROL 2.5 MG/3 ML NEB (ADULT) INH (22:16)
--- NOTE | 2018-08-22 22:19 | PC.NURSE ---
Pt return from CT. c/o increased sob. BS noted to be wheeze bilaterally. Pt has baseline lung disease as well as possible allergic reaction. Sat 84% on room air. Placed on NC [address] Stein in to eval, albuteral neb w/ good relief.
--- NOTE | 2018-08-22 23:39 | PC.NURSE ---
Left femoral pulse palpable. Left posterior tibial pulse intermittently audible with doppler. Patient able to bend left leg and wiggle big toe.
[2018-08-23] VITALS (12 sets, daily range): BP systolic 99–166; BP diastolic 52–83; PULSE 58–96; RESP 14–21; TEMP 36.3–37.2; O2SAT 96–100; BMI 18.6
--- NOTE | 2018-08-23 | DI.ECHO.S_ITS ---
[facility]---------+ [facility] +---------+ : : [address] : : : : [place], [place] : : : : [id number] : : : : Phone: [phone]+ Echocardiogram Report + + :Name: TRUDY SHORTVALORIE Auguste A Study Date: 08/23/2018 Height: 70 in : :[facility] Exam Location: [facility] Weight: 130 lb : : Gender: Male BSA: 1.7 m2 : :: 1940 Age: 78 yrs BP: 108/68 mmHg: :Reason For Study: Atrial Fibrillation : :Ordering Physician: [facility] : :Hospitalist Performed By: Damaris Lee : :Referring: [facility] : + + Interpretation Summary Technically difficult study limiting valve visualization: 1) Grossly normal left ventricular size and systolic function (EF about 60%). 2) There are no obvious focal wall motion abnormalities noted but poor endocardial definition reduces the sensitivity for the detection of such. 3) Grossly, normal right ventricular size and function. 4) Valves not well visualized but no significant valvular stenosis or regurgitation present. 5) No prior Echo available for comparison. Procedure: A two-dimensional transthoracic echocardiogram with color flow and Doppler was performed. A two-dimensional transthoracic echocardiogram with color flow and Doppler was performed in limited views only. Technically challenging echocardiogram due to patient body habitus and limited ability to reposition. Images from the parasternal window were difficult to obtain and are suboptimal in quality. There is no prior echocardiogram noted for this patient. Left Ventricle: The left ventricle is grossly normal size. Left ventricular ejection fraction is estimated to be 60 +/- 5%. There are no obvious focal wall motion abnormalities noted but poor endocardial definition reduces the sensitivity for the detection of such. Right Ventricle: The right ventricle is grossly normal size. The right ventricular systolic function is normal. Mitral Valve: The mitral valve leaflets appear mildly thickened, but open well. There is mild mitral annular calcification. There is mild mitral regurgitation. Aortic Valve: The aortic valve is not well visualized. There is no aortic valve stenosis. Tricuspid Valve: The tricuspid valve is normal in structure and function. There is a trace or physiologic amount of tricuspid regurgitation. Pulmonary artery pressures cannot be estimated because of the lack of a measurable TR jet velocity. Pulmonic Valve: The pulmonic valve is not well visualized. Great Vessels: The ascending aorta could not be visualized. The IVC is of normal diameter and collapses greater than 50% with a sniff. This suggests a low right atrial pressure of 3 mm Hg. Pericardium/ Pleura There is no pericardial effusion. There is no pleural effusion. MMode/2D Measurements & Calculations LVOT diam: 2.0 cm IVC diam: 1.7 cm TAPSE: 2.2 cm Doppler Measurements & Calculations Ao V2 max: 111.7 cm/sec LVOT Max Wilton: 93.0 cm/sec Ao V2 mean: 78.7 cm/sec LV V1 max P.5 mmHg Ao max P.0 mmHg LV V1 VTI: 17.1 cm Ao mean P.7 mmHg JAROD(I,D): 2.9 cm2 Ao V2 VTI: 19.6 cm JAROD(V,D): 2.7 cm2 sev ratio: 0.87 JAROD indexed to BSA (cm^2/m^2): 1.6 Reading Physician:05:56 PM
--- NOTE | 2018-08-23 | DI.MRI.S_ITS ---
PROCEDURE: MR STROKE Pre- and post-contrast brain MRI, non-contrast brain MR angiogram, pre- and postcontrast neck MR angiogram INDICATIONS: LLE weakness TECHNIQUE: Brain: Noncontrast axial T1 spin echo, axial T2 fast spin echo, sagittal and axial FLAIR, coronal T2 fast spin echo, axial gradient echo, axial diffusion and ADC through the brain. After the administration of contrast, axial 3D VIBE of the cranial vasculature and brain. Brain MRA: Non-contrast 3-D time of flight MR angiogram, with multiple iyrruxm-tzwzycusu-ppkjtskoxb (MIP) reformats performed. Neck MRA: Axial and sagittal TruFISP through the neck. Coronal dynamic MR angiogram during administration of contrast in the arterial and venous phases, with 3-dimenstional vqdsppy-hufdadhst-hpsgdkpili (MIP) reformats constructed from subtraction images. COMPARISON: [facility], CT, CT ANGIO ABD AORTA RUNOFF, 08/22/2018, 21:44. [facility], CT, CT HEAD/BRAIN WO CON, 08/22/2018, 21:41. FINDINGS: Image quality: Excellent. BRAIN: CSF spaces: Ventricles are normal in size and shape. Basal cisterns are patent. No extra-axial fluid collections. Brain: No intracranial bleeds or mass effects. There is moderate diffuse cerebral volume loss. There are several high FLAIR signal intensity foci within the periventricular and subcortical white matter of the right frontal and parietal lobes, consistent with regions of chronic infarction. Da Silva-white matter interface is normal. Diffusion weighted imaging demonstrates multiple small, subcentimeter regions of high signal intensity within the cortex and subcortical white matter of the left knee again superior parietal lobe, as well as the left posterior superior frontal lobe. There a few small regions of subcortical high diffusion signal within the right superior frontoparietal lobes. These regions demonstrate moderate FLAIR signal elevation. Brainstem appears normal. Normal intravascular flow voids are present. No abnormal intracranial enhancement. Skull and face: Calvarial marrow signal is normal. Orbits appear normal. Sinuses: Right maxillary sinus retention cysts and mucosal thickening are present. BRAIN MR ANGIOGRAM: Anterior circulation: Intracranial internal carotid arteries are normal in size and enhancement. The flow within the paired anterior cerebral arteries is normal and symmetric. The flow within the middle cerebral arteries is normal and symmetric. The anterior communicating artery is seen. No stenoses, occlusions, or aneurysms. Posterior circulation: The visualized portions of the vertebral arteries demonstrate normal caliber, and join to form a normal appearing basilar artery. The flow within the posterior cerebral arteries is normal and symmetric. No stenoses, occlusions, or aneurysms. NECK MR ANGIOGRAM: Carotids: Great vessels demonstrate a conventional anatomy as they arise from the aortic arch. The origins of the common carotid arteries appear patent. The calibers and courses of both common carotid arteries are normal. There is a high-grade, roughly 95% stenosis of the right proximal internal carotid artery. Right internal carotid arteries otherwise patent. There is a high-grade roughly 80% stenosis of the proximal left internal carotid artery. Posterior circulation: The origins of the vertebral arteries appear patent. More superior portions of both vertebral arteries demonstrate normal course and caliber, and join to form a normal appearing basilar artery. Miscellaneous: Subclavian arteries appear patent. Pre-contrast images through the neck show no soft tissue abnormalities. Left apical high T2 signal intensity foci are present, corresponding to the lung opacities seen by CT examination. IMPRESSION: BRAIN MRI: 1. Multifocal small subacute infarcts within the left greater than right frontoparietal lobes as described above, consistent with emboli from a central (i.e., cardiac or ascending thoracic aortic) source. 2. Volume loss. Multifocal small chronic right-sided cerebral infarcts. 3. Right maxillary sinus disease. BRAIN MR ANGIOGRAM: Negative cerebral MR angiography. NECK MR ANGIOGRAM: 1. High-grade right greater than left bilateral internal carotid origin stenoses. 2. Patent bilateral vertebral arteries. 3. Left apical pulmonary abnormalities as seen by CT. Dictated by: Taylor Cerrato M.D. on 08/23/2018 at 11:26 Approved by: Taylor Cerrato M.D. on 08/23/2018 at 11:35
--- NOTE | 2018-08-23 00:04 | ED.EXTPRO ---
HPI - Extremity Problem General Chief complaint: Extremity Problem,Nontraumatic Stated complaint: Left leg weakness, FAST negative. Time Seen by Provider: 08/22/18 21:09 Source: patient and EMS Mode of arrival: EMS Limitations: no limitations History of Present Illness HPI Narrative: patient is a 78-year-old male who presents with acute onset of inability to move the left leg which started at 8:15 p.m.. He was discharged yesterday after having a open cholecystectomy on 08/05/2018and requiring TPN. He remained in the hospital until 08/21/2018. He is also presenting in new onset AFib with RVR he denies any chest pain heart palpitations dizziness or lightheadedness. Currently has a heart rate 130-160. He denies any fever or abdominal pain. He says he was in his recliner all lying back when he tried to get up and could not move his left leg. He has no speech difficulty no facial droop or arm weakness. Related Data Previous Rx's Medication Instructions Recorded acetaminophen [Tylenol] 650 mg PO Q6H PRN #30 tab 08/21/18 docusate sodium 100 mg PO BID #30 cap 08/21/18 lisinopril 20 mg PO DAILY #30 tab 08/21/18 Allergies Allergy/AdvReac Type Severity Reaction Status Date / Time diltiazem Allergy Mild Hives Verified 08/22/18 22:04 Review of Systems Review of Systems All systems reviewed & are unremarkable except as noted in HPI and below Constitutional Denies anorexia, Denies chills, Denies fatigue and Denies fever(s) Eyes Denies blind spots, Denies blurry vision and Denies change in vision ENT Ears, Nose, Mouth, and Throat: Denies vertigo, Denies dizziness and Denies disequilibrium Cardiovascular Reports as per HPI, Denies chest pain, Reports rapid heart rate, Reports irregular heart rhythm, Denies palpitations, Denies dyspnea and Denies dyspnea on exertion Respiratory Denies cough, Denies dyspnea, Denies dyspnea on exertion and Denies wheezing Gastrointestinal Gastrointestinal: Reports as per HPI Musculoskeletal Reports as per HPI Integumentary/Breasts Denies pruritus, Denies erythema, Denies rash and Denies wounds Neurologic Denies vertigo, Denies dizziness and Denies disequilibrium Endocrine Denies fatigue and Denies palpitations Allergic/Immunologic Denies wheezing PFSH Medical History Chronic cough (Chronic) Inguinal hernia (Chronic) Reducible right inguinal hernia (Chronic) Vocal cord polyps (Resolved) Surgical History H/O inguinal hernia repair (Resolved) Social History household members: spouse Smoking Status: Current every day smoker alcohol intake: former Exam Initial Vital Signs Initial Vital Signs: Vital Signs Temperature 97.5 F L 08/22/18 21:23 Pulse Rate 134 H 08/22/18 21:23 Respiratory Rate 32 H 08/22/18 21:23 Blood Pressure 109/74 08/22/18 21:23 Pulse Oximetry 98 08/22/18 21:23 Const General: cooperative Orientation: alert, awake and oriented x3 HENMT Head: normal to inspection and normocephalic Ears: hearing grossly normal bilaterally Nose: external nose normal Face and sinus: normal facial exam Eyes General: appearance normal, both eyes and all related structures Neck Neck: normal visual inspection, full ROM, supple and No JVD Chest Chest: normal inspection of the chest Resp Effort & Inspection: normal respiratory effort and able to speak in complete sentences Auscultation: wheezes ( Slight expiratory wheezing bilaterally) Cardio Rate: tachycardic Rhythm: abnormal rhythm irregularly irregular Heart Sounds: S1 normal and S2 normal GI Other: drains are in place incision sites clean and dry no sign of infection soft and nontender Back/Spine/Pelvis Back: normal to inspection and No back tenderness Thoracic/Lumbar Spine: thoracic and lumbar spine normal to inspection Sacroiliac Joints: nontender Skin General: no rashes or lesions noted Extrem Right lower extremity: hip/thigh ( strong palpable femoral pulse) and foot ( cold to touch but easily dopplerable pedal pulse) Left lower extremity: foot Details: other ( cold to touch no pedal pulse palpable or present on Doppler); no unusual warmth; abnormal capillary refill Scores NIH Stroke Scale Level of Conciousness: Alert, keenly responsive Ask month/age: Answers both questions correctly. Open/close eyes, close hand: Performs both tasks correctly Best gaze horizontal: Normal Visual betancourt: No visual loss Facial palsy: Normal symetrical movement Left arm drift: No drift for full 10 sec Right arm drift: No drift for full 10 sec Left leg drift: No movement Right leg drift: No drift for full 10 sec Limb ataxia: Absent Sensory on face/arms/legs: Normal, no sensory loss Best language: No aphasia, normal Dysarthria: Normal Extinction or inattention: No abnormality Total NIH Stroke scale score: 4 Course Orders Ordered: ED Orders 08/22/18 20:55 Complete Blood Count AUTO DIFF Stat Comprehensive Metabolic Panel Stat Lipase Stat Partial Thromboplastin Time Stat Prothrombin Time INR Stat Troponin & CK Cardiac Panel Stat 08/22/18 21:10 CT head/brain wo con Stat US arterial duplex LE LT Stat 08/22/18 21:13 EKG-12 Lead Stat 08/22/18 21:23 CT angio abd aorta runoff Stat Sodium Chloride (Normal Saline 0.9%) 1,000 mls @ 100 mls/hr IV CONT NORMA Last Admin: 08/22/18 21:40 Dose: 100 mls/hr Discontinued Medications Albuterol (Ventolin) 2.5 mg INH NOW ONE Stop: 08/22/18 22:16 Last Admin: 08/22/18 22:16 Dose: 2.5 mg Aspirin (Aspirin Chew) 324 mg PO NOW ONE Stop: 08/23/18 02:08 Diltiazem HCl (Cardizem) 10 mg IV NOW ONE Stop: 08/22/18 21:39 Last Admin: 08/22/18 21:39 Dose: 10 mg Vital Signs - 8 hr 08/22/18 21:23 08/22/18 21:28 08/22/18 21:39 Temperature 97.5 F L Pulse Rate 134 H 118 H 132 H Pulse Rate [Left Femoral] Pulse Rate [Left Posterior Tibial] Pulse Rate [Right Dorsalis Pedis] Respiratory Rate 32 H 33 H Blood Pressure 109/74 119/85 Blood Pressure [Right Arm] 119/63 Pulse Oximetry 98 99 08/22/18 22:15 08/22/18 22:21 08/22/18 22:28 Temperature 97.5 F L Pulse Rate 90 90 Pulse Rate [Left Femoral] Pulse Rate [Left Posterior Tibial] Pulse Rate [Right Dorsalis Pedis] 80 Respiratory Rate 30 H 30 H Blood Pressure 119/85 Blood Pressure [Right Arm] 146/55 H Pulse Oximetry 100 100 08/22/18 23:30 08/22/18 23:38 08/23/18 00:00 Temperature Pulse Rate 101 H 90 Pulse Rate [Left Femoral] 82 Pulse Rate [Left Posterior Tibial] 82 Pulse Rate [Right Dorsalis Pedis] Respiratory Rate 18 21 Blood Pressure Blood Pressure [Right Arm] 110/61 99/52 L Pulse Oximetry 97 98 MDM - Extremity (Nontraumatic) Lab Data Result diagrams: 08/22/18 20:55 08/22/18 20:55 Lab Results 08/22/18 08/22/18 08/22/18 Range/Units 20:55 20:55 20:55 WBC 12.0 H (4.5-11.0) X10^3/uL RBC 5.10 (4.5-5.9) X10^6/uL Hgb 13.7 (13.5-17.5) g/dL Hct 42.4 (41-53) % MCV 83.2 (80-100) fL MCH 26.8 (26-34) PG MCHC 32.2 (30-36) % RDW 15.7 H (11.6-14.8) % Plt Count 467 H (150-400) X10^3/uL Neut % (Auto) 79.6 H (50-75) % Lymph % (Auto) 10.2 L (25-40) % [place]ath[place] % (Auto) 9.0 (3-14) % Eos % (Auto) 0.9 L (2-4) % Baso % (Auto) 0.3 (0-2) % Neut # (Auto) 9500 H (7775-4019) /uL PT 12.7 (10.1-12.7) SECONDS INR 1.2 (0.9-1.3) APTT 30 (26.4-36.2) SECONDS Sodium 142 (137-145) mmol/L Potassium 3.9 (3.4-5.1) mmol/L Chloride 104 (98-107) mmol/L Carbon Dioxide 26 (22-32) mmol/L BUN 16 (9-20) mg/dL Creatinine 0.80 (0.66-1.25) mg/dL Estimated GFR > 60.0 (>60) mL/min BUN/Creatinine Ratio 20.0 (6-22) Glucose 159 H (80-110) mg/dL Calcium 9.0 (8.4-10.2) mg/dL Total Bilirubin 0.5 (0.2-1.3) mg/dL AST 35 (17-59) IU/L ALT 37 (21-72) IU/L Alkaline Phosphatase 83 (38-126) U/L Total Creatine Kinase 62 (55-170) U/L CK-MB (CK-2) TNP CK-MB (CK-2) Rel Index TNP Troponin I 0.015 (0.01-0.034) ng/mL Total Protein 6.7 (6.3-8.2) g/dL Albumin 3.6 (3.5-5.0) g/dL Globulin 3.1 (1.7-4.1) g/dL Albumin/Globulin Ratio 1.2 (1.0-2.8) Lipase 989 H (23-300) U/L 08/22/18 Range/Units 20:55 WBC (4.5-11.0) X10^3/uL RBC (4.5-5.9) X10^6/uL Hgb (13.5-17.5) g/dL Hct (41-53) % MCV (80-100) fL MCH (26-34) PG MCHC (30-36) % RDW (11.6-14.8) % Plt Count (150-400) X10^3/uL Neut % (Auto) (50-75) % Lymph % (Auto) (25-40) % [place] % (Auto) (3-14) % Eos % (Auto) (2-4) % Baso % (Auto) (0-2) % Neut # (Auto) (0316-6576) /uL PT (10.1-12.7) SECONDS INR (0.9-1.3) APTT (26.4-36.2) SECONDS Sodium (137-145) mmol/L Potassium (3.4-5.1) mmol/L Chloride (98-107) mmol/L Carbon Dioxide (22-32) mmol/L BUN (9-20) mg/dL Creatinine (0.66-1.25) mg/dL Estimated GFR (>60) mL/min BUN/Creatinine Ratio (6-22) Glucose (80-110) mg/dL Calcium (8.4-10.2) mg/dL Total Bilirubin (0.2-1.3) mg/dL AST (17-59) IU/L ALT (21-72) IU/L Alkaline Phosphatase (38-126) U/L Total Creatine Kinase Cancelled (55-170) U/L CK-MB (CK-2) Cancelled CK-MB (CK-2) Rel Index Cancelled Troponin I Cancelled (0.01-0.034) ng/mL Total Protein (6.3-8.2) g/dL Albumin (3.5-5.0) g/dL Globulin (1.7-4.1) g/dL Albumin/Globulin Ratio (1.0-2.8) Lipase (23-300) U/L Imaging Data CT scan - head: Radiologist's impression: shift mechanic report: No acute intracranial process is identified. Mild to moderate age-related atrophic change. [id number] age related ischemic demyelination of white matter. CT angio chest abdomen pelvis runoff: Radiologist's impression: shift mechanic report: His abnormal own non calcified densities lateral aspect left lung apex could represent scarring neoplasm not excluded. Follow-up suggested. The dorsal left lung apex there is a noncalcified density containing central lucency. It is difficult to determine whether this represents infected bleb or bulla or cavitary mass. Further evaluation with PET scanning may be helpful. Marked facet but is changes upper lobe predominance. Enlargement of pulmonary artery suggesting pulmonary hypertension. Small pleural effusion. Pulmonary vessels no filling defe ct within pulmonary arterial vasculature to suggest pulmonary embolism. Enhancement of the distal body and tail of the pancreas there is some hali pancreatic fat stranding and small amount of fluid along Gerota's fascia. There appears to be calcified calculus within pancreatic duct within body of the pancreas. Pancreatic duct distal to this is dilated measuring 5 mm. Findings concerning for pancreatitis with possible necrosis. Small amount of free fluid. Postoperative changes consistent with patient's cholecystectomy drains and common bile duct drainage tube. Calcific S atheromatous is change of abdominal aorta without aneurysm or dissection. Major all vessels appear patent. pelvis: Right common iliac artery: Calcific artheromatous hange. There is likely a short segment stenosis and mid common iliac of 50-70% left common iliac artery: Stenosis 50-70% in the proximal left common iliac artery external right colon 50-70% in the mid distal right inspector bicycle al iliac artery external left: Short-segment high-grade stenosis in the distal left external iliac or E between 80-90% images 623-64. Internal right colon numerous short segments 50-70% stenosis with calcifications internal left in numeral short stenosis 50-70% femoral arteries: Right scattered calcific atheromatous change. 50 70% left: Calcific atheromatous stenosis distal left high-grade stenosis between 90-99% lower extremity: Numerous short-segment stenosis throughout arterial vasculature of the left lower extremity as described previously. ECG Data Attestation EKG: I personally reviewed and interpreted this ECG as follows: Prior ECG tracings: available for review Interpretation: EKG 1. Atrial flutter rate 127 with PVCs new since previous EKG EKG 2.: Sinus rhythm rate 97 with PVCs no acute ST changes PA interval 144 MDM Narrative Medical decision making narrative: patient initially did not have any palpable or Doppler pulse in the femoral or distal pedal pulse on the left side. He does have palpable pulses on the right and a weak when in the foot. New onset AFib as possible CVA versus ischemia. decision to get aorta all runoff along with head CT and rule out PE. After recent hospitalization. Unlikely to be spinal cord issue in a lateral no trauma, purely motor. Patient is not a tPA candidate if this is ischemic CVA due to recent major surgery. Possible anterior CVA. Due to multiple images radiology read took some time. 11:45 p.m. I did call and speak with Dr. Menezes, and update her on the situation. She did call me with a preliminary read sitting that there was a losts calcification and stenosis with a critical stenosis in the Distal left external iliac artery of 80-90%. I specifically asked if there was a thrombus she denied there being any thrombus. She also noted that there is a calcified calculus in the pancreatic duct measuring 5 mm. 1AM All images have been pushed to [facility]. I spoke with Dr. Anaya, vascular surgery who reviewed images and thought that this was chronic and more likely to be a CVA. 1:15 a.[address] with Dr. Hansen who has been updated patient's symptoms and test results. She says possible for anterior stroke. unfortunately he is definitely not a tPA candidate as recommend MRI an aspirin if okay with surgery. aware that MRI is not available this evening. At this time may get MRI in the morning. The patient is intermittently able to move his toes he could certainly bend his knee at times. During his stay in the emergency department pulses are intermittently felt. I discussed case with Dr. Lamb, surgery in regards to aspirin and anticoagulation. He agreed with aspirin he will follow in the hospital as needed. I discussed with Kathy, who happily accepts. Discharge Plan Departure Patient Disposition: Admitted As Inpatient Clinical Impression: CVA (cerebral vascular accident), Peripheral vascular disease, Atrial fibrillation with RVR Admit Date/Time: 08/23/18 02:48 Admit Provider: Lambert Payton
[2018-08-23] MEDS: ASPIRIN 81 MG TAB 324 MG PO (02:44)
--- NOTE | 2018-08-23 02:45 | PC.NURSE ---
right femral and edal pulse palpable. Left femeral pulse palpable at marked x. Left pedal pulse barley detectable with doppler at marked x.
--- NOTE | 2018-08-23 03:03 | PM.HP.1 ---
History of Present Illness Chief complaint: Left leg weakness, FAST negative. Narrative: The patient is a 78-year-old male who presented to the ED on 08/22/2018 at approximately 9:00 p.m with complaints of left lower extremity weakness. Specifically, patient described left lower extremity heaviness and inability to lift the extremity against gravity. Symptom initially noted on 08/22/18 at 8 pm. Associated ,symptoms include impaired mobility. Denies MORAN, dizziness, lightheadedness, CP, dyspnea, palpitations, or dysarthria. In ED, on presentation, NIHSS 4. Per my discussion with the ED physician, patient was unable to lift his left lower extremity off the bed. In AFIB RVR on presentation. Converted to sinus rhythm w/ a cardizem bolus. Risk factors: advanced age, HTN, lifelong tobacco dependence. No prior h/o a a cardiac arrhythmia. Patient was evaluated in the ED, improved from initial presentation. He is able to lift left lower extremity off the bed and hold against gravity w/o drift. Mild dysmetria w/ iago-gl-ebmf and ocguzh-nj-plho of left extremity. LLE pedal pulse palpable. Patient recently had a prolonged hospitalization course 08/05 through 08/21 for acute biliary pancreatitis for which he underwent an open cholecystectomy w/ intraoperative cholangiography (common bile duct exploration w/ unsuccessful stone extraction) and T-Tube placement. His hospital stay was complicated by S hospital stay was complicated by C diff colitis. Upon discharge, there was a plan for patient to follow up in 6 weeks for an ERCP. PMH significant for tobacco dependence, biliary pancreatitis, severe COPD/emphysema, right inguinal hernia, and HTN. ED work-up WBC 12, Hgb 13.7, Plt 467 Na 142, K 3.9, Cl 104, Ca 9, CO2 26, BUN 16, sCr 0.8, GFR > 60, Glu 159 Liver enzymes WNL w/ exception of lipase 989 Trop and CK-MB WNL, BNP 665 PT 12.7, INR 1.2, APTT 30 CT head: w/o acute intracranial findings. Fyci-cs-grlkkjez age related atrophic change. Fvwo-vh-xzkxevnh age related ischemic demyelination of white matter. CTA Chest: Unremarkable for PE. Abnormal non calcified densities lateral aspect left lung apex could represent scarring. Neoplasm not excluded. It is difficult to determine whether this represents infected bleb or bulla or cavity mass. Marked emphysematous changes upper lobe predominance. Enlargement of the pulmonary arteries suggesting pulmonary arterial hypertension. Small left pleural effusion. CTA Abdomen: Lack of enhancement of the distal body and tail of the pancreas. Thre is some peripancreatic fat stranding and a small amount of fluid along Gerota's fascia. There appears to be calcified calculus within the pancreatic duct w/in the body of the pancreas. Pancreatic duct distal to this is dilated measuring 5 mm. Findings concerning for pancreatitis with possible necrosis. Small amount of free fluid. Postop changes consistent with patient's recent cholecystectomy w/ drains and common bile duct drainage tube. Calcific atheromatous change of the abdominal aorta w/o aneurysm or dissection. Major arterial vessels appear patent w/ the exception of definite visualization of the inferior mesenteric artery. Enlargement of left adrenal gland of low-attenuation may represent adenomatous change. Follow-up suggested. CTA pelvis: short segment stenosis in mid-common iliac artery 50-70%, proximal left common iliac artery 50-70%, jla-yg-zwtfql right external iliac artery 50-70%, high grade stenosis distal left external iliac artery 80-90% multiple short segment stenoses 50-70% left and right internal iliac arteries high grade stenosis, CRITICAL, left common femoral artery 90-99% CTA lower extremities w/ run off Numerous short-segment stenoses throughout the right superficial femoral artery b/w 50-70%. Deep femoral artery (right) patent. Short segment stenosis 50-70% popliteal artery w/ numerous short segment calcific stenoses involveing trifurcation vessels. Anterior and posterior tibial arteries appear patent into the foot. Loss of contrast in the peroneal artery at the level of the mid hines. Numerous short segment setnoses throughout the left superficial femoral artery b/w 50-70%. Short segment stenosis of the popliteal artery b/w 80-90%. Numerous short segment stenoses involving trifurcation vessels. Posterior tibial artery appears patent into the foot. There is truncation of both distal peroneal and anterior tibial arteries above the level of the ankle joint. Received: 1 L of NS bolus and cardizem bolus (no gtt, developed a rash post cardizem bolus administration) EKG 08/22 at 21:19 Atrial flutter / tachycardia w/ RVR (v-rate 127) w/ aberrant conduction or PVCs. LAFB. Possible inferior myocardial infarction, of indeterminate age w/ posterior extention. QTC 458 EKG 08/22 at 23:02 SR w/ PVCs. LAFB. Moderate ST depression. Patient History Medical History Chronic cough (Chronic) Inguinal hernia (Chronic) Reducible right inguinal hernia (Chronic) Vocal cord polyps (Resolved) Surgical History H/O inguinal hernia repair (Resolved) Family & Social History Family History: Reviewed 08/10/18 by Abelardo Hester MD Social History: household members spouse Safety & Behavioral: Feels Safe in Current Yes Environment Been Physically Hurt or No Threatened By a Person Tobacco & Substance use: Tobacco type cigarettes Smoking Status Current every day smoker alcohol intake former alcohol intake frequency 0-2 drinks per day Substance Use Type does not use Meds Home Medications Medication Instructions Recorded Confirmed Type acetaminophen [Tylenol] 650 mg PO Q6H PRN #30 tab 08/21/18 08/23/18 Rx docusate sodium 100 mg PO BID #30 cap 08/21/18 08/23/18 Rx lisinopril 20 mg PO DAILY #30 tab 08/21/18 08/23/18 Rx Allergies Allergy/AdvReac Type Severity Reaction Status Date / Time diltiazem Allergy Mild Hives Verified 08/22/18 22:04 Review of Systems Review of Systems All systems reviewed & are unremarkable except as noted in HPI and below Exam Vital Signs (past 8 hours): - 08/22/18 21:23 08/22/18 21:28 08/22/18 21:39 Temperature 97.5 F L Pulse Rate 134 H 118 H 132 H Pulse Rate [Left Femoral] Pulse Rate [Left Posterior Tibial] Pulse Rate [Right Dorsalis Pedis] Respiratory Rate 32 H 33 H Blood Pressure 109/74 119/85 Blood Pressure [Right Arm] 119/63 Pulse Oximetry 98 99 08/22/18 22:15 08/22/18 22:21 08/22/18 22:28 Temperature 97.5 F L Pulse Rate 90 90 Pulse Rate [Left Femoral] Pulse Rate [Left Posterior Tibial] Pulse Rate [Right Dorsalis Pedis] 80 Respiratory Rate 30 H 30 H Blood Pressure 119/85 Blood Pressure [Right Arm] 146/55 H Pulse Oximetry 100 100 08/22/18 23:30 08/22/18 23:38 08/23/18 00:00 Temperature Pulse Rate 101 H 90 Pulse Rate [Left Femoral] 82 Pulse Rate [Left Posterior Tibial] 82 Pulse Rate [Right Dorsalis Pedis] Respiratory Rate 18 21 Blood Pressure Blood Pressure [Right Arm] 110/61 99/52 L Pulse Oximetry 97 98 Oxygen Delivery Method Nasal Cannula Oxygen Flow Rate 1 Narrative Exam Narrative: Constitutional: NAD Neurologic: AOx3, NIHSS 2 (limb ataxia with whhyxc-hs-gthu and rsck-hg-dukr (left), able to lift left lower extremity off the bed and hold against gravity for 5 sec, speech intact, no dysarthria, visual betancourt WNL, sensation intact, no motor deficits, no facial palsy Head: NC, AT Eyes: PERRL, EOMI, sclera anicteric Ears: external ears normal, no otorhea Nose: external nose normal, no rhinorhea or epistaxis Throat: MMM, oropharynx w/o exudate Neck: no masses, lymphadenopathy, or JVD Chest / Respiratory: equal chest rise, unlabored respiratory effort, no tachypnea diminished, no wheeze or rhonchi; on supplemental O2 Heart / CV: S1S2, occasional ectopic beats, no murmur Abdomen / GI: round, NT, ND, + BS, no organomegaly; biliary drain present : no suprapubic tenderness, no CVA Peripheral / Vascular: slightly cool to touch, DP palpable bilat (R 2+ and L 1+), right ankle / foot edema 2+ and left ankle / foot edema 1+ right and left femoral pulse present and palpable Musc: full ROM of upper and lower extremities, adequate muscle tone and bulk Skin: no ecchymosis or suspicious lesions / ulcers Objective Labs Result Diagrams: 08/22/18 20:55 08/22/18 20:55 Labs: Laboratory Results - last 24 hr 08/22/18 08/22/18 08/22/18 20:55 20:55 20:55 WBC 12.0 H RBC 5.10 Hgb 13.7 Hct 42.4 MCV 83.2 MCH 26.8 MCHC 32.2 RDW 15.7 H Plt Count 467 H Neut % (Auto) 79.6 H Lymph % (Auto) 10.2 L [place] % (Auto) 9.0 Eos % (Auto) 0.9 L Baso % (Auto) 0.3 Neut # (Auto) 9500 H PT 12.7 INR 1.2 APTT 30 Sodium 142 Potassium 3.9 Chloride 104 Carbon Dioxide 26 BUN 16 Creatinine 0.80 Estimated GFR > 60.0 BUN/Creatinine Ratio 20.0 Glucose 159 H Calcium 9.0 Total Bilirubin 0.5 AST 35 ALT 37 Alkaline Phosphatase 83 Total Creatine Kinase 62 CK-MB (CK-2) TNP CK-MB (CK-2) Rel Index TNP Troponin I 0.015 Total Protein 6.7 Albumin 3.6 Globulin 3.1 Albumin/Globulin Ratio 1.2 Lipase 989 H 08/22/18 20:55 WBC RBC Hgb Hct MCV MCH MCHC RDW Plt Count Neut % (Auto) Lymph % (Auto) [place] % (Auto) Eos % (Auto) Baso % (Auto) Neut # (Auto) PT INR APTT Sodium Potassium Chloride Carbon Dioxide BUN Creatinine Estimated GFR BUN/Creatinine Ratio Glucose Calcium Total Bilirubin AST ALT Alkaline Phosphatase Total Creatine Kinase Cancelled CK-MB (CK-2) Cancelled CK-MB (CK-2) Rel Index Cancelled Troponin I Cancelled Total Protein Albumin Globulin Albumin/Globulin Ratio Lipase Assessment & Plan Plan: Assessment/Plan Narrative: AFIB RVR, new onset Converted to SR w/ cardizem bolus. Potentially precipitated by hypovolemia; however, he does have significant risk factors (mentioned in HPI). - Tele monitor - [id number] (age, HTN, vascular disease) is 4, at a actfhyuq-pk-dhaj risk for thromboembolic events, chronic anticoagulation should be considered, potentially Eliquis; he has a pending ERCP, will need to discuss / collaborate with surgery. - Echo - Risk stratify - TSH, FLP, BMP, Mg in am - replete e-lytes accordingly - Consider on a choice of an anti-arrhythmic this morning, pending labs and echo. Will need to be mindful of BB in the setting of severe COPD; amiodarone therapy, especially retirement, d/t it's high side effect profile and risk of amiodarone induced interstitial lung disease; Sotalol, QT interval prolonged on admission, may be an option will need to trend QT - optimize risk factors, smoking cessation encouraged Left Lower Extremity Weakness 2/2 AFIB RVR vs TIA/CVA vs advanced peripheral vascular disease - imaging per MR Stroke ordered - will need to be evaluated by vascular surgery Peripheral vascular disease (see imaging report in HPI), rydeblnn-cw-rtcqme, worse on the left high grade stenosis of distal left external iliac artery 80-90% and critical stenosis of left common femoral artery 90-99%. - will need to follow up outpatient w/ vascular surgery or be transferred to another facility for an evaluation. Will be re-evaluated / discusse in am. Biliary pancreatitis w/ calcified calculus w/in the pancreatic duct w/in the body of the pancreas - Trend Lipase - Plan for ERCP in 6 weeks Hypovolemia biliary drain, emptying 1.5-2 bags per 24 hours; minimal draninage from the bulb drain - maintenance IVF Essential HTN, continue lisinopril Severe COPD - Duo-neb prn ANDREA on CKD II, sCr 0.5 to 0.8 (mild), anticipate to resolve w/ gently hydration Allergy to diltiazem
--- NOTE | 2018-08-23 03:12 | P.HP_ITS ---
History of Present Illness Chief complaint: Left leg weakness, FAST negative. Narrative: The patient is a 78-year-old male who presented to the ED on 08/22/2018 at approximately 9:00 p.m with complaints of left lower extremity weakness. Specifically, patient described left lower extremity heaviness and inability to lift the extremity against gravity. Symptom initially noted on at 8 pm. Associated ,symptoms include impaired mobility. Denies MORAN, dizziness, lightheadedness, CP, dyspnea, palpitations, or dysarthria. In ED, on presentation, NIHSS 4. Per my discussion with the ED physician, patient was unable to lift his left lower extremity off the bed. In AFIB RVR on presentation. Converted to sinus rhythm w/ a cardizem bolus. Risk factors: advanced age, HTN, lifelong tobacco dependence. No prior h/o a a cardiac arrhythmia. Patient was evaluated in the ED, improved from initial presentation. He is able to lift left lower extremity off the bed and hold against gravity w/o drift. Mild dysmetria w/ sokz-bb-utye and mhclrw-zn-dkrx of left extremity. LLE pedal pulse palpable. Patient recently had a prolonged hospitalization course 08/05 through 08/21 for acute biliary pancreatitis for which he underwent an open cholecystectomy w / intraoperative cholangiography (common bile duct exploration w/ unsuccessful stone extraction) and T-Tube placement. His hospital stay was complicated by S hospital stay was complicated by C diff colitis. Upon discharge, there was a plan for patient to follow up in 6 weeks for an ERCP. PMH significant for tobacco dependence, biliary pancreatitis, severe COPD/ emphysema, right inguinal hernia, and HTN. ED work-up WBC 12, Hgb 13.7, Plt 467 Na 142, K 3.9, Cl 104, Ca 9, CO2 26, BUN 16, sCr 0.8, GFR > 60, Glu 159 Liver enzymes WNL w/ exception of lipase 989 Trop and CK-MB WNL, BNP 665 PT 12.7, INR 1.2, APTT 30 CT head: w/o acute intracranial findings. Rphk-do-sfahkvom age related atrophic change. Bjyh-ui-shrisqss age related ischemic demyelination of white matter. CTA Chest: Unremarkable for PE. Abnormal non calcified densities lateral aspect left lung apex could represent scarring. Neoplasm not excluded. It is difficult to determine whether this represents infected bleb or bulla or cavity mass. Marked emphysematous changes upper lobe predominance. Enlargement of the pulmonary arteries suggesting pulmonary arterial hypertension. Small left pleural effusion. CTA Abdomen: Lack of enhancement of the distal body and tail of the pancreas. Thre is some peripancreatic fat stranding and a small amount of fluid along Gerota's fascia. There appears to be calcified calculus within the pancreatic duct w/in the body of the pancreas. Pancreatic duct distal to this is dilated measuring 5 mm. Findings concerning for pancreatitis with possible necrosis. Small amount of free fluid. Postop changes consistent with patient's recent cholecystectomy w/ drains and common bile duct drainage tube. Calcific atheromatous change of the abdominal aorta w/o aneurysm or dissection. Major arterial vessels appear patent w/ the exception of definite visualization of the inferior mesenteric artery. Enlargement of left adrenal gland of low- attenuation may represent adenomatous change. Follow-up suggested. CTA pelvis: short segment stenosis in mid-common iliac artery 50-70%, proximal left common iliac artery 50-70%, krg-sp-kerzys right external iliac artery 50-70 %, high grade stenosis distal left external iliac artery 80-90% multiple short segment stenoses 50-70% left and right internal iliac arteries high grade stenosis, CRITICAL, left common femoral artery 90-99 % CTA lower extremities w/ run off Numerous short-segment stenoses throughout the right superficial femoral artery b/w 50-70%. Deep femoral artery (right) patent. Short segment stenosis 50-70% popliteal artery w/ numerous short segment calcific stenoses involveing trifurcation vessels. Anterior and posterior tibial arteries appear patent into the foot. Loss of contrast in the peroneal artery at the level of the mid hines. Numerous short segment setnoses throughout the left superficial femoral artery b /w 50-70%. Short segment stenosis of the popliteal artery b/w 80-90%. Numerous short segment stenoses involving trifurcation vessels. Posterior tibial artery appears patent into the foot. There is truncation of both distal peroneal and anterior tibial arteries above the level of the ankle joint. Received: 1 L of NS bolus and cardizem bolus (no gtt, developed a rash post cardizem bolus administration) EKG 08/22 at 21:19 Atrial flutter / tachycardia w/ RVR (v-rate 127) w/ aberrant conduction or PVCs. LAFB. Possible inferior myocardial infarction, of indeterminate age w/ posterior extention. QTC 458 EKG 08/22 at 23:02 SR w/ PVCs. LAFB. Moderate ST depression. Patient History Medical History Chronic cough (Chronic) Inguinal hernia (Chronic) Reducible right inguinal hernia (Chronic) Vocal cord polyps (Resolved) Surgical History H/O inguinal hernia repair (Resolved) Family & Social History Family History: Reviewed 08/10/18 by Abelardo Hester MD Social History: household members spouse Safety & Behavioral: Feels Safe in Current Yes Environment Been Physically Hurt or No Threatened By a Person Tobacco & Substance use: Tobacco type cigarettes Smoking Status Current every day smoker alcohol intake former alcohol intake frequency 0-2 drinks per day Substance Use Type does not use Meds Home Medications Medication Instructions Recorded Confirmed Type acetaminophen [Tylenol] 650 mg PO Q6H PRN #30 tab 08/21/18 08/23/18 Rx docusate sodium 100 mg PO BID #30 cap 08/21/18 08/23/18 Rx lisinopril 20 mg PO DAILY #30 tab 08/21/18 08/23/18 Rx Allergies Allergy/AdvReac Type Severity Reaction Status Date / Time diltiazem Allergy Mild Hives Verified 08/22/18 22:04 Review of Systems Review of Systems All systems reviewed & are unremarkable except as noted in HPI and below Exam Vital Signs (past 8 hours): - 08/22/18 21:23 08/22/18 21:28 08/22/18 21:39 Temperature 97.5 F L Pulse Rate 134 H 118 H 132 H Pulse Rate [Left Femoral] Pulse Rate [Left Posterior Tibial] Pulse Rate [Right Dorsalis Pedis] Respiratory Rate 32 H 33 H Blood Pressure 109/74 119/85 Blood Pressure [Right Arm] 119/63 Pulse Oximetry 98 99 08/22/18 22:15 08/22/18 22:21 08/22/18 22:28 Temperature 97.5 F L Pulse Rate 90 90 Pulse Rate [Left Femoral] Pulse Rate [Left Posterior Tibial] Pulse Rate [Right Dorsalis Pedis] 80 Respiratory Rate 30 H 30 H Blood Pressure 119/85 Blood Pressure [Right Arm] 146/55 H Pulse Oximetry 100 100 08/22/18 23:30 08/22/18 23:38 08/23/18 00:00 Temperature Pulse Rate 101 H 90 Pulse Rate [Left Femoral] 82 Pulse Rate [Left Posterior Tibial] 82 Pulse Rate [Right Dorsalis Pedis] Respiratory Rate 18 21 Blood Pressure Blood Pressure [Right Arm] 110/61 99/52 L Pulse Oximetry 97 98 Oxygen Delivery Method Nasal Cannula Oxygen Flow Rate 1 Narrative Exam Narrative: Constitutional: NAD Neurologic: AOx3, NIHSS 2 (limb ataxia with vamsgv-vl-dvlz and neyi-xp-jxgo ( left), able to lift left lower extremity off the bed and hold against gravity for 5 sec, speech intact, no dysarthria, visual betancourt WNL, sensation intact, no motor deficits, no facial palsy Head: NC, AT Eyes: PERRL, EOMI, sclera anicteric Ears: external ears normal, no otorhea Nose: external nose normal, no rhinorhea or epistaxis Throat: MMM, oropharynx w/o exudate Neck: no masses, lymphadenopathy, or JVD Chest / Respiratory: equal chest rise, unlabored respiratory effort, no tachypnea diminished, no wheeze or rhonchi; on supplemental O2 Heart / CV: S1S2, occasional ectopic beats, no murmur Abdomen / GI: round, NT, ND, + BS, no organomegaly; biliary drain present : no suprapubic tenderness, no CVA Peripheral / Vascular: slightly cool to touch, DP palpable bilat (R 2+ and L 1+ ), right ankle / foot edema 2+ and left ankle / foot edema 1+ right and left femoral pulse present and palpable Musc: full ROM of upper and lower extremities, adequate muscle tone and bulk Skin: no ecchymosis or suspicious lesions / ulcers Objective Labs Result Diagrams: 08/22/18 20:55 08/22/18 20:55 Labs: Laboratory Results - last 24 hr 08/22/18 08/22/18 08/22/18 20:55 20:55 20:55 WBC 12.0 H RBC 5.10 Hgb 13.7 Hct 42.4 MCV 83.2 MCH 26.8 MCHC 32.2 RDW 15.7 H Plt Count 467 H Neut % (Auto) 79.6 H Lymph % (Auto) 10.2 L [place] % (Auto) 9.0 Eos % (Auto) 0.9 L Baso % (Auto) 0.3 Neut # (Auto) 9500 H PT 12.7 INR 1.2 APTT 30 Sodium 142 Potassium 3.9 Chloride 104 Carbon Dioxide 26 BUN 16 Creatinine 0.80 Estimated GFR > 60.0 BUN/Creatinine Ratio 20.0 Glucose 159 H Calcium 9.0 Total Bilirubin 0.5 AST 35 ALT 37 Alkaline Phosphatase 83 Total Creatine Kinase 62 CK-MB (CK-2) TNP CK-MB (CK-2) Rel Index TNP Troponin I 0.015 Total Protein 6.7 Albumin 3.6 Globulin 3.1 Albumin/Globulin Ratio 1.2 Lipase 989 H 08/22/18 20:55 WBC RBC Hgb Hct MCV MCH MCHC RDW Plt Count Neut % (Auto) Lymph % (Auto) [place] % (Auto) Eos % (Auto) Baso % (Auto) Neut # (Auto) PT INR APTT Sodium Potassium Chloride Carbon Dioxide BUN Creatinine Estimated GFR BUN/Creatinine Ratio Glucose Calcium Total Bilirubin AST ALT Alkaline Phosphatase Total Creatine Kinase Cancelled CK-MB (CK-2) Cancelled CK-MB (CK-2) Rel Index Cancelled Troponin I Cancelled Total Protein Albumin Globulin Albumin/Globulin Ratio Lipase Assessment & Plan Plan: Assessment/Plan Narrative: AFIB RVR, new onset Converted to SR w/ cardizem bolus. Potentially precipitated by hypovolemia; however, he does have significant risk factors (mentioned in HPI). - Tele monitor - [id number] (age, HTN, vascular disease) is 4, at a mfffkeud-ah-nbia risk for thromboembolic events, chronic anticoagulation should be considered, potentially Eliquis; he has a pending ERCP, will need to discuss / collaborate with surgery. - Echo - Risk stratify - TSH, FLP, BMP, Mg in am - replete e-lytes accordingly - Consider on a choice of an anti-arrhythmic this morning, pending labs and echo. Will need to be mindful of BB in the setting of severe COPD; amiodarone therapy, especially termite control servicer, d/t it's high side effect profile and risk of amiodarone induced interstitial lung disease; Sotalol, QT interval prolonged on admission, may be an option will need to trend QT - optimize risk factors, smoking cessation encouraged Left Lower Extremity Weakness 2/2 AFIB RVR vs TIA/CVA vs advanced peripheral vascular disease - imaging per MR Stroke ordered - will need to be evaluated by vascular surgery Peripheral vascular disease (see imaging report in HPI), uihgrfaw-yl-sdxzqz, worse on the left high grade stenosis of distal left external iliac artery 80-90% and critical stenosis of left common femoral artery 90-99%. - will need to follow up outpatient w/ vascular surgery or be transferred to another facility for an evaluation. Will be re-evaluated / discusse in am. Biliary pancreatitis w/ calcified calculus w/in the pancreatic duct w/in the body of the pancreas - Trend Lipase - Plan for ERCP in 6 weeks Hypovolemia biliary drain, emptying 1.5-2 bags per 24 hours; minimal draninage from the bulb drain - maintenance IVF Essential HTN, continue lisinopril Severe COPD - Duo-neb prn ANDREA on CKD II, sCr 0.5 to 0.8 (mild), anticipate to resolve w/ gently hydration Allergy to diltiazem
[2018-08-23] MEDS: SODIUM CHLORIDE 0.9% 1,000 ML 60 ML IV (06:29)
--- NOTE | 2018-08-23 07:05 | PC.NURSE ---
Patient had out 200mL from his larger stomach drain. He had 20mL from his smaller drain.
[2018-08-23 09:12] LABS: Hemoglobin A1C% w Est Avg Glu 6.3 % (4.0-6.0)
[2018-08-23 09:49] LABS: BUN Creatinine Ratio 23.3 (6-22); Blood Urea Nitrogen 14 mg/dL (9-20); Calcium 8.2 mg/dL (8.4-10.2); Carbon Dioxide 25 mmol/L (22-32); Chloride 109 mmol/L (98-107); Estimated Glomerular Filt Rate > 60.0 mL/min (>60); Glucose 91 mg/dL (80-110); HDL Cholesterol 16 mg/dL (40-60); HEMOLYSIS < 15 (0-50); Lipase 640 U/L (23-300); Magnesium 1.7 mg/dL (1.6-2.3); Potassium 3.7 mmol/L (3.4-5.1); Sodium 142 mmol/L (137-145); Triglycerides 119 mg/dL (35-150); VLDL Cholesterol Calculated 24 mg/dL (2-30)
[2018-08-23 09:59] LABS: Cholesterol < 50 mg/dL (140-199); LDL Cholesterol Calculated 10 mg/dL (<100)
[2018-08-23 10:11] LABS: Thyroid Stimulating Hormone 1.13 uIU/mL (0.47-4.68)
--- NOTE | 2018-08-23 10:30 | CM.DANOTE ---
DCP: Case received, EMR reviewed and met with patient. Introduced self and role. DCP template completed with information currently available. Patient is a 78 year old male who admitted early this morning to the care of the hospitalist team. Payer: confirmed: Medicare/[employer] Patient came to hospital due to symptoms of not being able to move left leg. Patient was just recently here for cholecystitis. At this time, ruling out CVA. Patient also noted to be in a-fib. Physical, occupational, and speech therapy have been added to orders. P: DCP to follow closely. Patient may need long term depending on inpatient status and how he progresses in hospital. Cinda Kramer RN/Auto Service Writer
[2018-08-23] MEDS: LISINOPRIL 20 MG TABLET PO (11:29)
[2018-08-23] MEDS: METOPROLOL IR 50 MG TABLET PO ×2 (11:29→21:05)
--- NOTE | 2018-08-23 13:45 | PT.IIE ---
Current Diagnoses Unspecified atrial fibrillation (08/23/18) Surgical History (Last Reviewed 08/23/18 @ 04:21 by DENISSE Camarena) H/O inguinal hernia repair (Resolved) Medical History (Last Reviewed 08/23/18 @ 04:21 by DENISSE Camarean) Chronic cough (Chronic) Inguinal hernia (Chronic) Reducible right inguinal hernia (Chronic) Vocal cord polyps (Resolved) Physical Therapy Inpatient Evaluation/Re-Eval M1 PT/OT-IP Prior Functional Status Start: 08/23/18 14:42 Freq: NEEDED Status: Active Protocol: Document 08/23/18 13:45 AB (Rec: 08/23/18 14:51 AB [id number]) Medical Review Prior Functional Status Medical History Reviewed Yes Communication able to make needs known Mobility and Gait pt stated that he is indpeendent with all mobilities and ambulation without AD Social History Household Members spouse Living Arrangements House Number of Floors (Floors) One Floor Number of Stairs To Enter/Railing? has a ramp to enter Home Environment Standard Height Toilet Walk in Shower Tub/Shower Home Equipment Front Wheel Walker Straight Cane Shower Seat without Backrest Hand Held Shower Grab Bars In Shower M2 PT-IP Current Condition Start: 08/23/18 14:42 Freq: NEEDED Status: Active Protocol: Document 08/23/18 13:45 AB (Rec: 08/23/18 14:51 AB [id number]) Physical Therapy Current Condition Current Condition Evaluation Date 08/23/18 Treatment Diagnosis CVA Onset Date 08/23/18 Precautions Abdominal Surgery Precautions Log Roll Lifting Restrictions Gait Belt above Incisional Area Other Precautions drain, T-tube M3 PT-IP Subjective Start: 08/23/18 14:42 Freq: NEEDED Status: Active Protocol: Document 08/23/18 13:45 AB (Rec: 08/23/18 14:51 AB [id number]) Subjective Physical Therapy Visit Type Type Initial Evaluation Visit Start Time 13:45 Visit Stop Time 14:24 Total Visit Minutes 39 Number of MEDICAL RECORDS AUDITOR Visits 0 Physical Therapy Visit Comments Patient Comments requested to use the toilet Therapy Pain Assessment Pain Present Pain Present Denied Pain M4 PT-IP Mobility and Gait Start: 08/23/18 14:42 Freq: NEEDED Status: Active Protocol: Document 08/23/18 13:45 AB (Rec: 08/23/18 14:51 AB [id number]) PT-Bed Mobility Assessment Rolling Level of Assist Minimal Assistance Supine to Sit Supine to Sit Minimal Assistance Sit to Supine Sit to Supine Minimal Assistance PT-Transfer Assessment Sit to and From Stand Sit to and from Stand Maximum Assistance 2 Person Assistance Use of Upper Extremities Equipment Transfer Assistive Device Gait Belt Front Wheeled Walker Orthotic/Prosthetic Devices or Brace: No Transfers Transfer Destination Bedside Commode Transfer Technique Stand Step Pivot Transfer Ability Level of Assist Maximum Assistance 2 Person Assistance Use of Upper Extremities Comments Mobility Comments pt with (+) L knee buckling requiring max A to stabilize. pt completed stand step transfer using FWW max A 2 and max cues for stability and safety. pt completed sit to stand from bedside commode max A x 2 and max cues and another person assisting with hygiene care and brief management. pt transferred back to bed using FWW max A x 2 and max cues. Gait Assessment Comments Gait Comments able to take steps during transfers but was not able to tolerate much and ambulation not assessed. PT-Balance Assessment Sitting Balance and Reactions Static Sitting Balance Ability Good Dynamic Sitting Balance Ability Good Standing Balance and Reactions Static Standing Balance Ability Poor Dynamic Standing Balance Ability Poor Device Used FWW M5 PT-IP Objective Assessments Start: 08/23/18 14:42 Freq: NEEDED Status: Active Protocol: Document 08/23/18 13:45 AB (Rec: 08/23/18 14:51 AB [id number]) Orientation Orientation/Cognition Level of Alertness Alert Orientation Name Age Birthday Month Date Year Day of Week Place Situation Gross Range of Motion Lower Extremity ROM Assessment Within Functional Limits Strength Lower Extremity Strength Assessment Left Impaired Knee 3-/5 Coordination Assessment Assessment Heel on Schultz Test Moderate Impairment Sensation Assessment Sensation Gross Sensation WNL Light Touch Intact M6 PT-IP Treatment Start: 08/23/18 14:42 Freq: NEEDED Status: Active Protocol: Document 08/23/18 13:45 AB (Rec: 08/23/18 14:51 AB [id number]) Physical Therapy Treatment Exercises Exercises Ankle Pumps Quad Sets Short Arc Quads Education Education Provided Safety Other Treatments Other Treatment Performed increasing standing bal/karrie; ambulation, LLE strength M7 PT-IP Assessment and Plan Start: 08/23/18 14:42 Freq: NEEDED Status: Active Protocol: Document 08/23/18 13:45 AB (Rec: 08/23/18 14:51 AB [id number]) PT Summary Assessment and Plan Potential Rehabilitation Potential Good Status of Condition at Evaluation Evolving Summary Impairments Strength Balance Coordination Tone Bed Mobility Transfers Gait Activity Tolerance Assessment Summary pt requiring 2 person assist with mobility and will benefit from inpatient rehab to improve strength and mobility. Goals Bed Mobility Goal Standby Assistance Transfer Goal Standby Assistance Front Wheeled Walker Gait Goal Standby Assistance Front Wheel Walker Gait Distance 50 Days to Meet Goals 5 Frequency of Treatment Frequency Of Treatment Twice a Day Treatment Plan Physical Therapy Treatment Plan Bed Mobility Training Transfer Training Gait Training Therapeutic Exercise Balance Retraining Discharge Planning Neuromuscular Re-ed Coordination Retraining Recommendations To Nursing Amount of Assist Needed 2 Person Assist PT/OT Assist Only Mechanical Lift Discharge Recommendations PT Discharge Recommendations Acute Rehab
--- NOTE | 2018-08-23 14:52 | CM.DPC ---
DCP Cont: Touched base with , Alana. very supportive, pleasant. Stated that patient had been doing well at home, and they had gone on outing. Stated that when he came home, he sat in the recliner, and that evening, he couldn't move his leg. It was at that time that she called 911, and ambulance transported patient here. P: DCP to follow closely for needs at discharge. Cinda Kramer RN/
--- NOTE | 2018-08-23 15:33 | ST.IPIE ---
Current Diagnoses Unspecified atrial fibrillation (08/23/18) Past Medical History (Last Reviewed 08/23/18 @ 04:21 by DENISSE Camarena) Chronic cough (Chronic Medical) Inguinal hernia (Chronic Medical) Reducible right inguinal hernia (Chronic Medical) Vocal cord polyps (Resolved Medical) removed ST IP Initial Evaulation Report STAIN SPRAYER Clinical Swallow Evaluation Start: 08/23/18 15:13 Freq: Status: Active Protocol: Document 08/23/18 15:14 TLC (Rec: 08/23/18 15:33 TLC [id number]) Clinical Swallow Evaluation Session Time Total Visit Minutes 35 Setting Assessment Location Acute Care Visit Type Note Type Initial Evaluation Next Note Type Next Note Type Treatment Note Patient Information Identification Type Name Subjective Observations Patient was seen sitting up in bed following OT and PT. He denied difficulty with swallowing or communication, but agreed to participate in the evaluation. He was oriented and responded to all questions appropriately. Per patient report, his highest level of education was 10th grade. 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 Evaluation Liquids Trialed Ice Chips Thin Solids Trialed Puree Mechanical Soft Regular Administration Type Tea Spoon Self-Feeding Oral Impairment WFL Oral Phase Comments Patient has well-fitting upper and lower partials. Adequate bolus acceptance with no abnormal oral residue. No other signs of oral dysphagia observed. Oral motor examination revealed mildly impaired coordination during alternating labial pucker and retraction. Strength and range of motion noted to be within functional limits. Pharyngeal Impairment WFL Pharyngeal Phase Comments Hyolaryngeal elevation present on palpation. Patient able to clear throat and cough on command. No signs or symptoms of aspiration observed during trials. Findings Impressions No dysphagia, aphasia, apraxia or dysarthria observed. Patient scored 20/30 on the SLUMS indicating mild neurocognitive disorder. He was only able to recall 2 out of 5 objects following a 3 minute delay and answer 3 out of 4 questions about a paragraph read aloud. He had difficulty with reverse digit span of 3 and 4 digits. Patient states he has noticed some loss of memory as he ages , but reports there is a lot going on right now. He states his manages their finances at home. Diet Recommendations Liquids Order Thin Diet Order Regular Medication Recommendations As Tolerated Treatment Plan Placement Recommendations after Home Discharge Appropriate for Therapy Yes Therapy Recommendations Follow-up x1 for ongoing discussion of results of SLUMS and education of compensatory memory strategies as well as maintaining brain health including physical activity, healthy diet and staying mentally and social active.
--- NOTE | 2018-08-23 15:48 | PM.PN.1 ---
Subjective Date Patient Seen: 08/23/18 Interval history: Patient reports persistent weakness in the left leg and also truncal weakness. States the left arm weakness has greatly improved. Denies chest pain or dyspnea. Exam Vital Signs (past 8 hours): - 08/23/18 09:12 08/23/18 10:47 08/23/18 12:00 Temperature 98.3 F 98.9 F Pulse Rate 93 H 82 Respiratory Rate 18 18 Blood Pressure 148/68 H 141/83 H Pulse Oximetry 100 97 97 08/23/18 12:57 Temperature 98.9 F Pulse Rate 82 Respiratory Rate 18 Blood Pressure 141/83 H Pulse Oximetry 97 Oxygen Delivery Method Room Air Oxygen Flow Rate 0 Narrative Exam Narrative: General: Alert, pleasant and cooperative in no acute distress Lungs: Breathing nonlabored Heart: Regular rhythm Abdomen: Soft, bag noted with biliary drainage Extremities: No edema, dorsalis pedis pulses weak but palpable bilaterally, distal skin warm and not cyanotic Neurological: Fully oriented, no pronator drift, [id number] intact, rle strength intact, lower extremity strength 3/5, significant truncal weakness as well Objective Labs Result Diagrams: 08/22/18 20:55 08/23/18 08:12 Labs: Laboratory Results - last 24 hr 08/22/18 08/22/18 08/22/18 20:55 20:55 20:55 WBC 12.0 H RBC 5.10 Hgb 13.7 Hct 42.4 MCV 83.2 MCH 26.8 MCHC 32.2 RDW 15.7 H Plt Count 467 H Neut % (Auto) 79.6 H Lymph % (Auto) 10.2 L [place] % (Auto) 9.0 Eos % (Auto) 0.9 L Baso % (Auto) 0.3 Neut # (Auto) 9500 H PT 12.7 INR 1.2 APTT 30 Sodium 142 Potassium 3.9 Chloride 104 Carbon Dioxide 26 BUN 16 Creatinine 0.80 Estimated GFR > 60.0 BUN/Creatinine Ratio 20.0 Glucose 159 H Hemoglobin A1c Calcium 9.0 Magnesium Total Bilirubin 0.5 AST 35 ALT 37 Alkaline Phosphatase 83 Total Creatine Kinase 62 CK-MB (CK-2) TNP CK-MB (CK-2) Rel Index TNP Troponin I 0.015 Total Protein 6.7 Albumin 3.6 Globulin 3.1 Albumin/Globulin Ratio 1.2 Triglycerides Cholesterol LDL Cholesterol, Calc VLDL Cholesterol HDL Cholesterol Lipase 989 H TSH 08/22/18 08/23/18 08/23/18 20:55 08:12 08:12 WBC RBC Hgb Hct MCV MCH MCHC RDW Plt Count Neut % (Auto) Lymph % (Auto) [place] % (Auto) Eos % (Auto) Baso % (Auto) Neut # (Auto) PT INR APTT Sodium 142 Potassium 3.7 Chloride 109 H Carbon Dioxide 25 BUN 14 Creatinine 0.60 L Estimated GFR > 60.0 BUN/Creatinine Ratio 23.3 H Glucose 91 Hemoglobin A1c Calcium 8.2 L Magnesium 1.7 Total Bilirubin AST ALT Alkaline Phosphatase Total Creatine Kinase Cancelled CK-MB (CK-2) Cancelled CK-MB (CK-2) Rel Index Cancelled Troponin I Cancelled Total Protein Albumin Globulin Albumin/Globulin Ratio Triglycerides 119 Cholesterol < 50 L LDL Cholesterol, Calc 10 VLDL Cholesterol 24 HDL Cholesterol 16 L Lipase 640 H TSH 1.13 08/23/18 08:12 WBC RBC Hgb Hct MCV MCH MCHC RDW Plt Count Neut % (Auto) Lymph % (Auto) [place] % (Auto) Eos % (Auto) Baso % (Auto) Neut # (Auto) PT INR APTT Sodium Potassium Chloride Carbon Dioxide BUN Creatinine Estimated GFR BUN/Creatinine Ratio Glucose Hemoglobin A1c 6.3 H Calcium Magnesium Total Bilirubin AST ALT Alkaline Phosphatase Total Creatine Kinase CK-MB (CK-2) CK-MB (CK-2) Rel Index Troponin I Total Protein Albumin Globulin Albumin/Globulin Ratio Triglycerides Cholesterol LDL Cholesterol, Calc VLDL Cholesterol HDL Cholesterol Lipase TSH Assessment & Plan Plan: Assessment/Plan Narrative: 1. Acute multifocal bilateral CVA, likely embolic from extensive atherosclerosis in thoracic aorta and/or due to atrial fib/flutter. Patient presented with acute left-sided weakness and now primarily with left lower extremity and truncal weakness. MR stroke protocol with evidence of bilateral multifocal small subacute and chronic infarction in frontoparietal lobes left greater than right. On MRA portion he has high-grade right greater than left bilateral internal carotid origin stenoses. Patient is very high risk for subsequent events. Plan: Telemetry, transthoracic echo, PT/OT/ST consults, Care Management consult, started clopidogrel 75 mg daily. In addition he had atrial flutter on his initial workup and should probably be started on oral anticoagulation in the next couple of weeks if no surgical interventions planned (see obstructed bile duct issue below). Started statin therapy with atorvastatin 40 mg daily. Noted his total cholesterol is less than 50 likely reflective of his poor nutritional status. 2. Paroxysmal atrial flutter with RVR: Converted to sinus rhythm after Cardizem bolus. Plan: Oral metoprolol 50 mg twice daily. Consider anticoagulant once patient has completed any surgical interventions for his abdomen. 3. Severe bilateral carotid artery stenosis: Manage medically with Plavix, statin, BP control. He also has coronary atherosclerosis noted on CTA of his chest. He would be fairly high risk for surgical intervention and would need preop cardiac clearance prior. 4. Severe peripheral artery disease: He has extensive pelvic and femoral atherosclerosis on CTA. There is no clinical evidence of acute limb ischemia. He can have outpatient vascular surgery consultation down the road. 5. Hypertension: BP adequate in setting of acute CVA. Continue lisinopril 20 mg daily started last admission and metoprolol tartrate 50 mg twice daily started this admission. 5. Biliary pancreatitis with retained distal common bile duct stone status post open cholecystectomy and T-tube drainage. He is scheduled for follow-up with Dr. Tato Lamb who did his surgery on his last admission with plans for referral for ERCP. 6. Severe COPD, current smoker: He has severe emphysematous changes on CT. Encouraged to quit smoking. No acute respiratory problems. 7. 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 There is suspicion for malignancy. Patient is informed of this finding. He can have outpatient PET-CT for further evaluation. 8. Severe protein calorie malnutrition, noted on last admission, still present. Disposition: Continue inpatient care. Patient will likely need penitentiary rehab upon discharge. He was previously followed at [facility] and will need to reestablish care as has not seen a primary care provider in a number of years. Quality VTE Deep Vein Thrombosis/Pulmonary Embolism Present on Admission: No
--- NOTE | 2018-08-23 17:40 | OT.IP.EVAL ---
Current Diagnoses Unspecified atrial fibrillation (08/23/18) Past Medical History (Last Reviewed 08/23/18 @ 04:21 by DENISSE Camarena) Chronic cough (Chronic) Inguinal hernia (Chronic) Reducible right inguinal hernia (Chronic) Vocal cord polyps (Resolved) Surgical History (Last Reviewed 08/23/18 @ 04:21 by DENISSE Camarena) H/O inguinal hernia repair (Resolved) Occupational Therapy Inpatient Evaluation/Re-Eval M1 PT/OT-IP Prior Functional Status Start: 08/23/18 14:42 Freq: NEEDED Status: Active Protocol: Document 08/23/18 13:45 AB (Rec: 08/23/18 14:51 AB [id number]) Medical Review Prior Functional Status Medical History Reviewed Yes Communication able to make needs known Mobility and Gait pt stated that he is independent with all mobilities and ambulation without AD Social History Household Members spouse Living Arrangements House Number of Floors (Floors) One Floor Number of Stairs To Enter/Railing? has a ramp to enter Home Environment Standard Height Toilet Walk in Shower Tub/Shower Home Equipment Front Wheel Walker Straight Cane Shower Seat without Backrest Hand Held Shower Grab Bars In Shower M1 PT/OT-IP Prior Functional Status Start: 08/23/18 17:07 Freq: NEEDED Status: Active Protocol: Document 08/23/18 17:22 [facility] (Rec: 08/23/18 17:40 [facility] [id number]) Medical Review Prior Functional Status Medical History Reviewed Yes Communication able to make needs known Mobility and Gait pt stated that he is independent with all mobilities and ambulation without AD Activities of Daily Living and IADL's Pt states was dong all ADl's on his own, however when pt states instead of walking to his bathroom 35ft feet away at night would just use his bathroom which was closer. Prior Functional Level (Other details) Pt just discharged on 08/21/18 from an extensive hospital stay of acute pancreatitis- underwent open cholecystectomy with intraoperative cholangiography and T-tube placement. Social History Household Members spouse Living Arrangements House Number of Floors (Floors) One Floor Number of Stairs To Enter/Railing? has a ramp to enter Home Environment Standard Height Toilet Walk in Shower Tub/Shower Home Equipment Front Wheel Walker Straight Cane Shower Seat without Backrest Hand Held Shower Grab Bars In Shower M2 OT-IP Current Condition Start: 08/23/18 17:07 Freq: Status: Active Protocol: Document 08/23/18 17:22 [facility] (Rec: 08/23/18 17:40 [facility] [id number]) Occupational Therapy Current Condition Current Condition Evaluation Date 08/23/18 Treatment Diagnosis CVA, Afib/RVR Post Operative Precautions Abdominal Surgery Precautions Log Roll Lifting Restrictions Gait Belt above Incisional Area Other Precautions drain, T-tube M3 OT- IP Subjective and Pain Start: 08/23/18 17:07 Freq: Status: Active Protocol: Document 08/23/18 17:22 [facility] (Rec: 08/23/18 17:40 [facility] [id number]) OT- Subjective Occupational Therapy Visit Type Type Initial Evaluation Visit Start Time 13:20 Visit Stop Time 14:20 Total Visit Minutes 60 Occupational Therapy Visit Comments Patient Comments Pt wanting to try to get up. OT Pain Assessment Pain When Pain Assessed At Rest Pain Present Pain Present Denied Pain M4 OT- IP ADL's Start: 08/23/18 17:07 Freq: Status: Active Protocol: Document 08/23/18 17:22 [facility] (Rec: 08/23/18 17:40 [facility] [id number]) OT ADL-Dressing General Eval Lower Body Dressing Ability Maximum Assistance Areas Needing Assistance Socks Comments OT Dressing Comments Assist to ana socks. OT ADL-Toileting General Evaluation Toileting Ability Maximum Assistance Areas Needing Assistance Manage Clothing Perform Perineal Hygiene Devices Toileting Assistive Devices Commode Comments OT Toileting Comments MAX A for all toileting needs, pt needing two person assist to stand and another for all pericare needs. M6 OT- IP Functional Cognition Start: 08/23/18 17:07 Freq: Status: Active Protocol: Document 08/23/18 17:22 [facility] (Rec: 08/23/18 17:40 [facility] [id number]) Cognitive Factors Limiting Selfcare Function Cognitive Ability Level of Alertness Alert Patient Orientation Name Age Date Year Day of Week Place Attention Span Ability Capable of Focused Attention Capable of Sustained Attention Ability to Follow Commands Able to Follow One Step Commands Memory Description Short Term Impaired Safety Awareness Underestimates Need for Assistance Problem Solving Ability Needs Assist to Identify Solutions Cognitive Tests SLUMS Pt scored 20/30 please see SOLAR SYSTEM DESIGNER eval for details. Cognitive Comments Cognitive Assessment Comments Pt able to follow simple concrete commands. Needs vc for hand placement on FWW. OT- Vision and Hearing OT- Hearing Assessment OT- Hearing Assessment WFL OT- Vision Assessment Visual Attentiveness WFL Visual Link WFL M7 OT- IP Mobility and Balance Start: 08/23/18 17:07 Freq: Status: Active Protocol: Document 08/23/18 17:22 [facility] (Rec: 08/23/18 17:40 [facility] [id number]) OT- Bed Mobility Assessment Rolling Type of Rolling Roll to Right Supine to Sit Supine to Sit Assist Minimal Assistance Sit to Supine Sit to Supine Assist Minimal Assistance OT-Transfer Assessment Sit to and From Stand Sit to and from Stand Maximum Assistance 2 Person Assistance Transfers Transfer Ability Maximum Assistance 2 Person Assistance Technique Transfer Destination Bed Bedside Commode Transfer Technique Stand Step Pivot Devices Transfer Assistive Devices Gait Belt Front Wheeled Walker Comments Mobility Comments MAX A X2 to stand due to LLE buckling and poor control. OT- Balance Assessment Sitting Balance and Reactions Static Sitting Balance Ability Good Dynamic Sitting Balance Ability Fair Standing Balance and Reactions Static Standing Balance Ability Poor Dynamic Standing Balance Ability Poor M8 OT- IP Objective Assessments Start: 08/23/18 17:07 Freq: Status: Active Protocol: Document 08/23/18 17:22 [facility] (Rec: 08/23/18 17:40 [facility] [id number]) OT Gross Range of Motion Upper Extremity Range of Motion Assessment Within Functional Limits OT Strength Comments Strength Comments RUE 4/5, LUE4-/5 OT- Coordination Assessment Upper Extremity Finger to Nose Test Bilateral UE Impaired Comments Coordination Comments L finger mildly impaired compared to R finger. OT Sensation Assessment Comments Summary Comments BUE, WFL for light touch, proprioception, and kinesthesia. M9 OT- IP Assessment and Plan Start: 08/23/18 17:07 Freq: Status: Active Protocol: Document 08/23/18 17:22 [facility] (Rec: 08/23/18 17:40 [facility] [id number]) OT Summary Assessment and Plan Potential Rehabilitation Potential Good Analytic Complexity at Evaluation Moderate Summary OT Impairments Strength Balance Coordination Functional Cognition Functional Mobility Self-Feeding Grooming Dressing Toileting Bathing Toilet Transfers Shower Transfers Progress Towards Goals Slow Progress due to Medical Issues Slow Progress due to Activity Tolerance Slow Progress due to Cognition Assessment Summary Pt here for CVA, multiple small acute infarcts and main barrier is decreased control and strength of LLE, decreased STM/ cognitive skills, and now needing extensive assist for all ADl's and functional mobility. Pt will benefit from skilled rehab prior to going home. Goals Self-Feeding Goal Independent Grooming Goal Minimal Assistance Dressing Goal Moderate Assistance Toileting Goal Moderate Assistance Bathing Goal Moderate Assistance Toilet Transfer Goal Moderate Assistance Shower Transfer Goal Moderate Assistance Patient/Caregiver Education Goal Caregiver Independent Assisting Patient Days to Meet Goals 10 Frequency of Treatment Frequency Of Treatment Once a Day Treatment Plan OT Treatment Plan ADL Training Functional Cognition Training Functional Mobility Neuromuscular Re-education Patient/Family Education Discharge Planning Other Treatment Recommendations and Next ACL, grooming while sitting Treatment Focus from recliner. Discharge Recommendations OT Discharge Recommendations SNF Rehab
[2018-08-23] MEDS: ATORVASTATIN 20 MG TABLET 40 MG PO (21:05)
--- NOTE | 2018-08-23 23:22 | PC.NURSE ---
Late entry. Assumed care of pt from outgoing shift at 1500 this day. NIH done on pt, and score 0- Pt uses call light. embarrassed that he wet his pants. but pt cleaned up. brought dinner in for pt. Pt denies pain. drains emptied prn. in to see pt. no new orders. Pt cooperative with nursing staff and students. will continent to monitor.
[2018-08-24] VITALS (10 sets, daily range): BP systolic 130–173; BP diastolic 60–83; PULSE 69–90; RESP 16–20; TEMP 36.4–36.8; O2SAT 96–145
--- NOTE | 2018-08-24 | DI.US.S_ITS ---
PROCEDURE: US CAROTID DOPPLER BI INDICATIONS: CVA,carotid a stenosis on mr TECHNIQUE: Color and pulse Doppler interrogation was performed of both carotid systems, with image documentation and velocity measurements. COMPARISON: None. FINDINGS: Stenosis calculations are based on SRU (Society of Radiologists in Ultrasound) criteria. Right side: Brachial blood pressure: 153/65 mm Hg. Common carotid artery peak systolic velocity: 76 cm/sec. Internal carotid artery peak systolic velocity: 486 cm/sec. Internal carotid artery end diastolic velocity: 134 cm/sec. External carotid artery peak systolic velocity: 140 cm/sec. ICA/CCA peak systolic ratio: 6.4 . Da Silva scale imaging description: Moderate to severe plaque at the bifurcation. Percent internal carotid artery stenosis: 70% to near occlusion. Vertebral artery: Not visualized Left side: Brachial blood pressure: 139/55 mm Hg. Common carotid artery peak systolic velocity: 83 cm/sec. Internal carotid artery peak systolic velocity: 351 cm/sec. Internal carotid artery end diastolic velocity: 48 cm/sec. External carotid artery peak systolic velocity: 112 cm/sec. ICA/CCA peak systolic ratio: 4.2. Da Silva scale imaging description: Moderate plaque at the bifurcation. Percent internal carotid artery stenosis: 70% to near occlusion. Vertebral artery: Flow direction is antegrade. IMPRESSION: Bilateral 70% to near occlusion of the internal carotid arteries bilaterally. Dictated by: Ellyn Aguilar M.D. on 08/24/2018 at 11:11 Approved by: Ellyn Aguilar M.D. on 08/24/2018 at 11:13
--- NOTE | 2018-08-24 00:32 | PC.NURSE ---
Patient is alert and oriented. NIH score = 0 but does have some weakness in left LE. Breath sounds diminished but CTA with loose, intermittent, nonproductive cough. RA sat 97%; continuous pulse oximetry placed as per MD order. HR irregular; on telemetry and was SR with quadrigeminal PVC's. Denies nausea. BT present and abdomen is soft. Upper abdomen and umbilical incisions are steri stripped; well approximated and without redness/drainage. KENDRA/t-tube insertions sites are covered with bulky dressing which is CDI. Denies dysuria, frequency, urgency or incontinence; using urinal at bedside. Able to turn himself. Denies any pain. Wearing bilateral SCD's; waiting for coordinator to bring LANDON stockings to put on as per MD order. Fall risk score is high as patient reports fall at home on 07/27/18 so bed alarm is activated. Has been up only with PT due to weakness.
[2018-08-24] MEDS: CLOPIDOGREL 75 MG TABLET PO (09:10)
[2018-08-24] MEDS: LISINOPRIL 20 MG TABLET PO (09:10)
[2018-08-24] MEDS: SODIUM CHLORIDE 0.9% FLUSH 10 ML IV ×2 (09:10→20:45)
[2018-08-24] MEDS: ENOXAPARIN 40 MG/0.4 ML SYRINGE SUBCUT (09:10)
[2018-08-24] MEDS: METOPROLOL IR 50 MG TABLET PO ×2 (09:11→20:45)
--- NOTE | 2018-08-24 11:39 | PT.IPTN ---
Current Diagnoses Unspecified atrial fibrillation (08/23/18) Physical Therapy Treatment Note M2 PT-IP Current Condition Start: 08/23/18 14:42 Freq: NEEDED Status: Active Protocol: Document 08/23/18 13:45 AB (Rec: 08/23/18 14:51 AB [id number]) Physical Therapy Current Condition Current Condition Evaluation Date 08/23/18 Treatment Diagnosis CVA Onset Date 08/23/18 Precautions Abdominal Surgery Precautions Log Roll Lifting Restrictions Gait Belt above Incisional Area Other Precautions drain, T-tube M3 PT-IP Subjective Start: 08/23/18 14:42 Freq: NEEDED Status: Active Protocol: Document 08/24/18 11:28 SA (Rec: 08/24/18 11:39 SA [id number]) Subjective Physical Therapy Visit Type Type Treatment Note Visit Start Time 11:03 Visit Stop Time 11:28 Total Visit Minutes 25 Number of BUNDLE TIER AND LABELER Visits 1 Physical Therapy Visit Comments Patient Comments Pt supine in ed and agreeable to therapy. Therapy Pain Assessment Pain When Pain Assessed During Mobility Pain Present Pain Present Denied Pain M4 PT-IP Mobility and Gait Start: 08/23/18 14:42 Freq: NEEDED Status: Active Protocol: Document 08/24/18 11:28 SA (Rec: 08/24/18 11:39 SA [id number]) PT-Bed Mobility Assessment Rolling Type of Rolling Roll to Right Level of Assist Contact Guard Assistance Supine to Sit Supine to Sit Minimal Assistance Sit to Supine Sit to Supine Contact Guard Assistance Scooting Scooting to Edge of Bed Contact Guard Assistance Scooting Up and Down in Bed Minimal Assistance PT-Transfer Assessment Sit to and From Stand Sit to and from Stand Moderate Assistance 1 Person Assistance Use of Upper Extremities Equipment Transfer Assistive Device Gait Belt Front Wheeled Walker Orthotic/Prosthetic Devices or Brace: No Transfers Transfer Destination Bed Transfer Technique Stand Step Pivot Transfer Ability Level of Assist Minimal Assistance 1 Person Assistance Use of Upper Extremities Comments Mobility Comments Pt feeling better today, has been doing exercises in bed. Checked vitals at EOB, BP 130/ 83, 99% 02 and HR 70. Pt worried about knee buckling so declined ambulation at this time. M5 PT-IP Objective Assessments Start: 08/23/18 14:42 Freq: NEEDED Status: Active Protocol: Document 08/23/18 13:45 AB (Rec: 08/23/18 14:51 AB [id number]) Orientation Orientation/Cognition Level of Alertness Alert Orientation Name Age Birthday Month Date Year Day of Week Place Situation Gross Range of Motion Lower Extremity ROM Assessment Within Functional Limits Strength Lower Extremity Strength Assessment Left Impaired Knee 3-/5 Coordination Assessment Assessment Heel on Schultz Test Moderate Impairment Sensation Assessment Sensation Gross Sensation WNL Light Touch Intact M6 PT-IP Treatment Start: 08/23/18 14:42 Freq: NEEDED Status: Active Protocol: Document 08/24/18 11:28 SA (Rec: 08/24/18 11:39 SA [id number]) Physical Therapy Treatment Exercises Exercises Ankle Pumps Gluteal Sets Quad Sets Heel Slides Straight Leg Raises Education Education Provided Safety Other Treatments Other Treatment Performed Static standing at EOB with postural correction and cues for PLB as pt tends to hold breath. Lateral weight shifting at FWW with no LOB or knee buckling. M7 PT-IP Assessment and Plan Start: 08/23/18 14:42 Freq: NEEDED Status: Active Protocol: Document 08/24/18 11:28 SA (Rec: 08/24/18 11:39 [id number]) PT Summary Assessment and Plan Potential Rehabilitation Potential Good Status of Condition at Evaluation Evolving Summary Assessment Summary Pt able to complete bed mobility and sit to stands with 1 person assist. To continue with bed exercises and pt hopes to ambulate this afternoon. Frequency of Treatment Frequency Of Treatment Twice a Day Recommendations To Nursing Amount of Assist Needed 2 Person Assist
--- NOTE | 2018-08-24 12:50 | PC.NURSE ---
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
--- NOTE | 2018-08-24 13:04 | PM.PN.1 ---
Subjective Date Patient Seen: 08/24/18 Time Patient Seen: 13:05 Interval history: No new complaints today Exam Vital Signs (past 8 hours): - 08/24/18 08:45 08/24/18 09:15 08/24/18 11:24 Temperature 97.6 F 97.7 F Pulse Rate 90 69 Respiratory Rate 16 18 Blood Pressure 138/65 130/83 Pulse Oximetry 98 97 99 Oxygen Delivery Method Room Air Oxygen Flow Rate 0 Narrative Exam Narrative: Resting comfortably Heart regular rhythm Neck is supple Lungs clear Abdomen biliary drainage tube noted bowel sounds are active nontender no masses Lower extremities decreased pulses throughout Neuro exam awake alert the left lower extremity still with minor weakness 4/5 in intensity truncal weakness noted still wobbly when he tries to walk Objective Labs Result Diagrams: 08/22/18 20:55 08/23/18 08:12 Assessment & Plan Plan: Assessment/Plan Narrative: 1. Acute multifocal bilateral CVA, likely embolic from extensive atherosclerosis in thoracic aorta and/or due to atrial fib/flutter. Patient presented with acute left-sided weakness and now primarily with left lower extremity and truncal weakness. MR stroke protocol with evidence of bilateral multifocal small subacute and chronic infarction in frontoparietal lobes left greater than right. On MRA portion he has high-grade right greater than left bilateral internal carotid origin stenoses. We have placed him on Plavix and will also start the warfarin for the AFib. Patient would benefit from evaluation by vascular surgery for the carotid stenosis. Statin also started even know his total cholesterol is less than 50 which is probably reflective of his nutritional status Plan: Telemetry, continue physical therapy. Patient would probably benefit from inpatient rehab for stroke. This would also get him to a facility that has the specialist that he needs at this point which will be vascular surgery and possible Cardiology. I talked with Care Management today about possibly arranging for that in the next 1-2 days. The patient is uncertain if he wants to be real aggressive with the possible surgery for carotid artery stenosis but certainly having him evaluated and giving him the options would be a alan thing to 2. Paroxysmal atrial flutter with RVR: Converted to sinus rhythm after Cardizem bolus. Plan: Oral metoprolol 50 mg twice daily. Warfarin started also 3. Severe bilateral carotid artery stenosis: Manage medically with Plavix, statin, BP control. He also has coronary atherosclerosis noted on CTA of his chest. He would be fairly high risk for surgical intervention and would need preop cardiac clearance prior. 4. Severe peripheral artery disease: He has extensive pelvic and femoral atherosclerosis on CTA. There is no clinical evidence of acute limb ischemia. He can have outpatient vascular surgery consultation down the road. 5. Hypertension: BP adequate in setting of acute CVA. Continue lisinopril 20 mg daily started last admission and metoprolol tartrate 50 mg twice daily started this admission. 5. Biliary pancreatitis with retained distal common bile duct stone status post open cholecystectomy and T-tube drainage. He is scheduled for follow-up with Dr. Tato Lamb who did his surgery on his last admission with plans for referral for ERCP. 6. Severe COPD, current smoker: He has severe emphysematous changes on CT. Encouraged to quit smoking. No acute respiratory problems. 7. 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 There is suspicion for malignancy. Patient is informed of this finding. He can have outpatient PET-CT for further evaluation. 8. Severe protein calorie malnutrition, noted on last admission, still present. 9. Right posterior thigh compartment mass found on CT scan. Uncertain etiology at some point could be evaluated with MRI. Disposition: Continue inpatient care. Patient will likely need senior living rehab upon discharge. He was previously followed at [facility] and will need to reestablish care as has not seen a primary care provider in a number of years. Time Spent With Patient Time with patient: 25 - 35 minutes Quality VTE Deep Vein Thrombosis/Pulmonary Embolism Present on Admission: No
--- NOTE | 2018-08-24 13:53 | CM.DPC ---
Addendum entered by Cinda Kramer R.N. 08/24/18 14:08: Spoke to patient. Patient stated: Im just tired of it, I want to go home, I haven't been able to get any rest since I've been here. Discussed plan with patient, regarding [facility], and he is not wishing to go through treatments. Stated, he might feel different tomorrow, but just wants to get stronger so he can go home. Encouraged patient to think about his choices, and to talk to his about it. Mentioned home health, and he stated would think about it. Original Note: DCP Cont: Dr. Paredes, hospitalist, is suggesting that patient go to inpatient rehab at [facility], for intense physical therapy. He also stated that the hospital has vascular surgeons as well. Spoke to , Alana, who stated that patient did not really want to go. Patient also not wanting to go to a local skilled facility. Let her know, would go ahead and contact [facility], to get information, should patient change his mind. Called [facility], phone number: [phone]. Left a message for them to call back to get information, regarding this patient. Did not leave patient's name, but let them know patient has increased therapy needs, and may need vascular surgery as well. P: DCP to continue to follow closely. Discuss benefits of inpatient rehab, in which he would get higher level of rehabilitation. Await call back from [facility]. Cinda Kramer RN/Carpet Repairer
--- NOTE | 2018-08-24 14:38 | PT.IPTN ---
Current Diagnoses Unspecified atrial fibrillation (08/23/18) Physical Therapy Treatment Note M2 PT-IP Current Condition Start: 08/23/18 14:42 Freq: NEEDED Status: Active Protocol: Document 08/23/18 13:45 AB (Rec: 08/23/18 14:51 AB [id number]) Physical Therapy Current Condition Current Condition Evaluation Date 08/23/18 Treatment Diagnosis CVA Onset Date 08/23/18 Precautions Abdominal Surgery Precautions Log Roll Lifting Restrictions Gait Belt above Incisional Area Other Precautions drain, T-tube M3 PT-IP Subjective Start: 08/23/18 14:42 Freq: NEEDED Status: Active Protocol: Document 08/24/18 14:25 SA (Rec: 08/24/18 14:38 SA [id number]) Subjective Physical Therapy Visit Type Type Treatment Note Visit Start Time 13:25 Visit Stop Time 13:55 Total Visit Minutes 30 Number of WAX MACHINE OPERATOR Visits 2 Physical Therapy Visit Comments Patient Comments Pt denies pain, agreeable to PT. Feeling discouraged about complex medical issues, just wants to go home. Therapy Pain Assessment Pain When Pain Assessed During Mobility Pain Present Pain Present Denied Pain M4 PT-IP Mobility and Gait Start: 08/23/18 14:42 Freq: NEEDED Status: Active Protocol: Document 08/24/18 14:25 SA (Rec: 08/24/18 14:38 SA [id number]) PT-Bed Mobility Assessment Rolling Type of Rolling Roll to Right Level of Assist Contact Guard Assistance Supine to Sit Supine to Sit Contact Guard Assistance Sit to Supine Sit to Supine Standby Assistance Scooting Scooting to Edge of Bed Standby Assistance Scooting Up and Down in Bed Contact Guard Assistance PT-Transfer Assessment Sit to and From Stand Sit to and from Stand Contact Guard Assistance 1 Person Assistance Use of Upper Extremities Equipment Transfer Assistive Device Gait Belt Front Wheeled Walker Orthotic/Prosthetic Devices or Brace: No Transfers Transfer Destination Bed Chair Transfer Technique Stand Step Pivot Transfer Ability Level of Assist Contact Guard Assistance 1 Person Assistance Use of Upper Extremities Comments Mobility Comments Noted significant drop in 02 with standing from 99% seated to 80% during transfers. Pt cued for PLB to help maintain 02 levels when mobilizing. HR and BP WNLs. Gait Assessment Gait Gait Assistance Required: Minimum Assistance Distance (Feet) 12 Assistive Devices Assistive Device Gait Belt Front Wheeled Walker Orthotic/Prosthetic Devices or Brace: No Gait Deviations General Gait Pattern Antalgic Decreased Stride Length Decreased Feet Clearance Flexed Trunk Factors Limiting Gait Function Factors Limiting Gait Function Decreased Activity Tolerance Decreased Strength Poor Balance Comments Gait Comments Pt walked 6 feet x 2 to/from chair with FWW and CGA-Min A with min cues for safe technique and use of FWW. PT-Balance Assessment Standing Balance and Reactions Static Standing Balance Ability Poor Dynamic Standing Balance Ability Poor Device Used FWW M5 PT-IP Objective Assessments Start: 08/23/18 14:42 Freq: NEEDED Status: Active Protocol: Document 08/23/18 13:45 AB (Rec: 08/23/18 14:51 AB [id number]) Orientation Orientation/Cognition Level of Alertness Alert Orientation Name Age Birthday Month Date Year Day of Week Place Situation Gross Range of Motion Lower Extremity ROM Assessment Within Functional Limits Strength Lower Extremity Strength Assessment Left Impaired Knee 3-/5 Coordination Assessment Assessment Heel on Schultz Test Moderate Impairment Sensation Assessment Sensation Gross Sensation WNL Light Touch Intact M6 PT-IP Treatment Start: 08/23/18 14:42 Freq: NEEDED Status: Active Protocol: Document 08/24/18 14:25 SA (Rec: 08/24/18 14:38 SA [id number]) Physical Therapy Treatment Exercises Exercises Ankle Pumps Gluteal Sets Quad Sets Heel Slides Straight Leg Raises Education Education Provided Safety Other Treatments Other Treatment Performed Pt completed LE ther ex while seated in chair and was able to ambulate 2x6 feet with no L knee buckling. M7 PT-IP Assessment and Plan Start: 08/23/18 14:42 Freq: NEEDED Status: Active Protocol: Document 08/24/18 14:25 SA (Rec: 08/24/18 14:38 [id number]) PT Summary Assessment and Plan Potential Rehabilitation Potential Good Status of Condition at Evaluation Evolving Summary Assessment Summary Pt able to ambulate this PM and tolerated well. Seated LE ther ex and fatigued by end of session. 02 drops with standing mobility. Frequency of Treatment Frequency Of Treatment Twice a Day Recommendations To Nursing Amount of Assist Needed 1 Person Assist
--- NOTE | 2018-08-24 15:09 | ST.IPTN ---
BED AND BREAKFAST COOK Treatment Note BED AND BREAKFAST COOK Treatment Note Start: 08/23/18 15:13 Freq: Status: Active Protocol: Document 08/24/18 15:02 [facility] (Rec: 08/24/18 15:08 [facility] [id number]) Speech Pathology Treatment Note Session Time Total Visit Minutes 10 Visit Type Note Type Discharge Summary Subjective Observations/Patient Presentation Patient seen lying in bed. No family members present in room . He recalled working with me yesterday and stated I got 6.7 %, referring to our discussion about the result of the SLUMS - 67% (20/). Chief Complaint(s) Cognitive Objective Treatment Activities Provided patient with written and verbal education regarding mild neurocognitive decline, maintaining brain health and compensatory memory strategies . Patient reports he does not have electronics in his home with the exception of the television. He does not use a computer or cell phone. We discussed use of low tech aids, such as a calendar and lists for memory of functional information such as dates and appointments. He reports he does not read much anymore and was not able to state any hobbies. He stated he received not good news this morning from his doctor and he wants to focus on his physical therapy to be able to walk again. I recommended he follow-up with his PCP regarding his cognitive decline once he is discharged. Assessment Patient Response to Treatment Fair Impairments Identified Cognitive-Linguistic Skills Memory - Short Term Plan Amount of Therapy Recommended No Further Therapy Therapy Recommendations Discharge from Speech Therapy
--- NOTE | 2018-08-24 15:09 | CM.DPC ---
DCP Cont: Was able to get in contact with Aaron, talent acquisition coordinator at [facility]. Her direct phone number is: [phone]. Gave her update information on patient, as well as insurance information. Requested that we fax over demographics (face sheet), history and physical, as well as therapy notes to her at: [phone]. Jayleen faxed over information. Spoke with Aaron regarding patient's situation, as well as wanting to go home after discharge. Aaron stated that she could come over and speak to patient about facility, and what they do there. Let her know we would contact her, after patient has some time to think about it, for at this time, he is feeling overwhelmed with his illness. P: Continue to reach out to patient regarding inpatient therapy at [facility], and involve , Alana, as well. Physical therapy team may also be beneficial in talking to patient. Aaron will be contacting us after reviewing information. Cinda Kramer RN/Can Patcher
[2018-08-24] MEDS: WARFARIN 3 MG TABLET PO (17:16)
[2018-08-24] MEDS: ATORVASTATIN 20 MG TABLET 40 MG PO (20:45)
[2018-08-25] VITALS (10 sets, daily range): BP systolic 139–168; BP diastolic 60–87; PULSE 65–88; RESP 16–20; TEMP 36.2–36.7; O2SAT 96–99
--- NOTE | 2018-08-25 01:00 | PC.NURSE ---
Addendum entered by Annamaria Dover R.N. 08/25/18 06:37: Slept at intervals. Conversant and cooperative when awake but does express some feeling of depression and wanting to leave here whether discharge to home or dying. Original Note: Patient is alert and oriented. NIH score is 1 for drift in left leg but does not touch bed. Breath sounds coarse but CTA with RA sat of 97%. Does have intermittent, loose, nonproductive cough. HRR with BP of 157/66 and telemetry reading of SR with PAC's. BT present and is passing flatus. Upper abdominal incision and umbilical incision remain steri stripped, well approximated and without redness/drainage. KENDRA compressed/intact with serous drainage. T-tube to gravity with brown/green fluid in bag. Dressing over tube insertion sites are CDI. Able to turn self in bed. Is using urinal tonight and has been continent. Denies pain. Wearing bilateral LANDON stockings and SCD's as per MD order. Requesting he be DNR so provided POLST form and will have him discuss with MD in the morning. Fall risk score is high and bed alarm is activated.
[2018-08-25 06:05] LABS: Add Manual Diff / Slide Review NO; Basophils Percent Auto 0.5 % (0-2); Eosinophils Percent Auto 3.4 % (2-4); Hematocrit 37.5 % (41-53); Hemoglobin 12.5 g/dL (13.5-17.5); Lymphocytes Percent Auto 12.4 % (25-40); Mean Corpuscular HGB Conc 33.3 % (30-36); Mean Corpuscular Hemoglobin 27.5 PG (26-34); Mean Corpuscular Volume 82.5 fL (80-100); Monocytes Percent Auto 9.2 % (3-14); Neutrophils Absolute Auto 4900 /uL (3000-5900); Neutrophils Percent Auto 74.5 % (50-75); Platelet Count 277 X10^3/uL (150-400); Red Blood Cell Count 4.54 X10^6/uL (4.5-5.9); Red Cell Distribution Width 15.2 % (11.6-14.8); White Blood Cell Count 6.6 X10^3/uL (4.5-11.0)
[2018-08-25 06:21] LABS: INR 1.3 (0.9-1.3); Prothrombin Time 13.7 SECONDS (10.1-12.7)
--- NOTE | 2018-08-25 09:01 | CM.DPC ---
Faxed 08/24 progress note and therapy notes to [facility] per Cheri
--- NOTE | 2018-08-25 09:02 | CM.DPC ---
Addendum entered by Cheri Santiago LPN 08/25/18 11:39: Pt's spouse Alana is here and met briefly with her and pt. Dr. Paredes arrived and stood by for most of their conversation. Left room while Dr Paredes was doing his exam and plan to return. Pt identifies his primary goal as home. He is agreeble to taking medication if it will help (Alana says he does not have a PCP and has not gone to the doctor in the 14 years she has been to him.) Pt does say he would consider going to the clinic his goes to: [facility]. Pt at this point also open to seeing Dr. Lamb in followup but does not want to consider a vascular surgery intervention. Dr. Paredes is agreeable to continued focus on the PT/OT with home plan if doable. OF NOTE: pt would not be able to utilize HH services until he is established with a PCP. Alerted OT Ericka to above plan. She will see pt shortly while Alana is still here. Will follow closely. Original Note: Addendum entered by Cheri Santiago LPN 08/25/18 09:24: Spoke with pt. He states, I am at my wit's end. I cannot take all this anymore. The doctor told me all the things that are wrong with me and that it might take months to recover. I don't want any of that. Pt is calling his and plan made to see them today when she is here. Noted POLST at bedside. Not filled out. Pt says he wants NO CPR. Unclear what AD he might have at home. Plan to discuss further when his is here. Original Note: DCP: continued: case received, EMR reviewed. READMIT: noted (pt was here 08/05 with a d/c to home on 08/23, abdominal biliary drain in place and clinic followup with Dr. Lamb.) DCP: thus far: notes indicate a referral to [facility]/inpatient acute physical rehab unit. Spoke with Aaron/[facility] rehab: she confirms that in terms of the CVA pt at this point would likely meet criteria. She has only reviewed the notes of 08/23. [facility]. Her physician team is reviewing. Aaron confirms that their unit is on the [facility]. The [facility], a few miles away is the hospital setting. She reports confusion re the ? of vascular surgeon need and cautions that they accept patients only after they are medically stable and as the last step before rehab and then a d/c to home. P: discuss in Team Rounds and obtain further clarity from Dr. Paredes re the plan going forward. PT and OT are seeing pt. WELDING MACHINE OPERATOR HELPER [employer] saw pt for a session related to cognitive function and has d/c'd him from services. Will need to work with pt and his as pt currently not wishing the inpt rehab, per documentation. Checked in with him now and white board in room is updated.
--- NOTE | 2018-08-25 09:23 | PT.IPTN ---
Current Diagnoses Unspecified atrial fibrillation (08/23/18) Physical Therapy Treatment Note M2 PT-IP Current Condition Start: 08/23/18 14:42 Freq: NEEDED Status: Active Protocol: Document 08/23/18 13:45 AB (Rec: 08/23/18 14:51 AB [id number]) Physical Therapy Current Condition Current Condition Evaluation Date 08/23/18 Treatment Diagnosis CVA Onset Date 08/23/18 Precautions Abdominal Surgery Precautions Log Roll Lifting Restrictions Gait Belt above Incisional Area Other Precautions drain, T-tube M3 PT-IP Subjective Start: 08/23/18 14:42 Freq: NEEDED Status: Active Protocol: Document 08/25/18 09:13 SA (Rec: 08/25/18 09:23 SA [id number]) Subjective Physical Therapy Visit Type Type Treatment Note Visit Start Time 08:38 Visit Stop Time 09:08 Total Visit Minutes 30 Number of TELEGRAPH MECHANIC Visits 3 Physical Therapy Visit Comments Patient Comments Pt finished breakfast and ready for PT. States he is feeling better then yesterday. Plans to d/c home. Therapy Pain Assessment Pain When Pain Assessed During Mobility Pain Present Pain Present Denied Pain M4 PT-IP Mobility and Gait Start: 08/23/18 14:42 Freq: NEEDED Status: Active Protocol: Document 08/25/18 09:13 SA (Rec: 08/25/18 09:23 [id number]) PT-Bed Mobility Assessment Rolling Type of Rolling Roll to Right Level of Assist Standby Assistance Supine to Sit Supine to Sit Standby Assistance Sit to Supine Sit to Supine Standby Assistance Scooting Scooting to Edge of Bed Standby Assistance Scooting Up and Down in Bed Standby Assistance PT-Transfer Assessment Sit to and From Stand Sit to and from Stand Contact Guard Assistance 1 Person Assistance Equipment Transfer Assistive Device Gait Belt 4 Wheeled Walker Orthotic/Prosthetic Devices or Brace: No Transfers Transfer Destination Bed Chair Transfer Technique Stand Step Pivot Transfer Ability Level of Assist Contact Guard Assistance Comments Mobility Comments 02 levels still drop rapidly with any standing activity, from 99% to 80%. Improved standing tolerance today, no L knee buckling. Gait Assessment Gait Gait Assistance Required: Contact Guard Assist Distance (Feet) 20 Assistive Devices Assistive Device Gait Belt Front Wheeled Walker Orthotic/Prosthetic Devices or Brace: No Gait Deviations General Gait Pattern Antalgic Flexed Trunk Factors Limiting Gait Function Factors Limiting Gait Function Decreased Activity Tolerance Decreased Strength Poor Balance Comments Gait Comments Pt walke from EOB to chair and then from chair to far side of bed 6 feet + 14 feet with CGA and Min cues for PLB and locking of L knee. PT-Balance Assessment Comments Other Balance Tests/Deviations/Treatment Pt stood in front of chair and : completed staning balance task with swaying to music and multi-direcitonal weight shifting. No LOB but relies heavily on FWW. M5 PT-IP Objective Assessments Start: 08/23/18 14:42 Freq: NEEDED Status: Active Protocol: Document 08/23/18 13:45 AB (Rec: 08/23/18 14:51 AB [id number]) Orientation Orientation/Cognition Level of Alertness Alert Orientation Name Age Birthday Month Date Year Day of Week Place Situation Gross Range of Motion Lower Extremity ROM Assessment Within Functional Limits Strength Lower Extremity Strength Assessment Left Impaired Knee 3-/5 Coordination Assessment Assessment Heel on Schultz Test Moderate Impairment Sensation Assessment Sensation Gross Sensation WNL Light Touch Intact M6 PT-IP Treatment Start: 08/23/18 14:42 Freq: NEEDED Status: Active Protocol: Document 08/25/18 09:13 SA (Rec: 08/25/18 09:23 [id number]) Physical Therapy Treatment Exercises Exercises Ankle Pumps Gluteal Sets Quad Sets Heel Slides Straight Leg Raises Other Treatments Other Treatment Performed Completed LE ther ex while seated in chair. Tolerated well. M7 PT-IP Assessment and Plan Start: 08/23/18 14:42 Freq: NEEDED Status: Active Protocol: Document 08/25/18 09:13 SA (Rec: 08/25/18 09:23 [id number]) PT Summary Assessment and Plan Potential Rehabilitation Potential Good Status of Condition at Evaluation Evolving Summary Assessment Summary Education provided regarding our recommendation of IP rehab , pt understands his physical/ medical deficits and is willing to do caregiver training with and have home health PT/OT but states he will not do IP rehab. Frequency of Treatment Frequency Of Treatment Twice a Day Recommendations To Nursing Amount of Assist Needed 1 Person Assist
[2018-08-25] MEDS: CLOPIDOGREL 75 MG TABLET PO (09:37)
[2018-08-25] MEDS: LISINOPRIL 20 MG TABLET PO (09:37)
[2018-08-25] MEDS: ENOXAPARIN 40 MG/0.4 ML SYRINGE SUBCUT (09:37)
[2018-08-25] MEDS: METOPROLOL IR 50 MG TABLET PO ×2 (09:37→20:21)
[2018-08-25] MEDS: SODIUM CHLORIDE 0.9% FLUSH 10 ML IV ×2 (09:38→20:21)
--- NOTE | 2018-08-25 11:39 | PM.PN.1 ---
Subjective Date Patient Seen: 08/25/18 Time Patient Seen: 11:39 Interval history: No new neurologic symptoms he is feeling stronger Exam Vital Signs (past 8 hours): - 08/25/18 05:10 08/25/18 07:47 08/25/18 09:37 Temperature 97.7 F 97.8 F Pulse Rate 82 88 80 Respiratory Rate 20 18 Blood Pressure 168/64 H 161/72 H 139/60 Pulse Oximetry 98 96 Oxygen Delivery Method Room Air Oxygen Flow Rate 0 Narrative Exam Narrative: Resting comfortably Neck is supple Heart regular rhythm Lungs clear Abdomen biliary drainage tube noted bowel sounds present Extremities decreased pulses in the feet Neuro exam some minor weakness 4/5 in the left lower extremity truncal weakness noted Objective Labs Result Diagrams: 08/25/18 05:55 08/23/18 08:12 Labs: Laboratory Results - last 24 hr 08/25/18 08/25/18 05:55 05:55 WBC 6.6 RBC 4.54 Hgb 12.5 L Hct 37.5 L MCV 82.5 MCH 27.5 MCHC 33.3 RDW 15.2 H Plt Count 277 Neut % (Auto) 74.5 Lymph % (Auto) 12.4 L Starke % (Auto) 9.2 Eos % (Auto) 3.4 Baso % (Auto) 0.5 Neut # (Auto) 4900 PT 13.7 H INR 1.3 Assessment & Plan Plan: Assessment/Plan Narrative: 1. Acute multifocal bilateral CVA, likely embolic from extensive atherosclerosis in thoracic aorta and/or due to atrial fib/flutter. Patient presented with acute left-sided weakness and now primarily with left lower extremity and truncal weakness. MR stroke protocol with evidence of bilateral multifocal small subacute and chronic infarction in frontoparietal lobes left greater than right. On MRA portion he has high-grade right greater than left bilateral internal carotid origin stenoses. We have placed him on Plavix and will also start the warfarin for the AFib. Patient would benefit from evaluation by vascular surgery for the carotid stenosis. Statin also started even know his total cholesterol is less than 50 which is probably reflective of his nutritional status He has at this point decided not to pursue any further evaluation vascular workup for his problems. He understands that he is very high risk for stroke. He wants to get home which is understandable. We will talk about this again may be when he is on it a little better mood to talk about interventions that need to be done 2. Paroxysmal atrial flutter with RVR: Converted to sinus rhythm after Cardizem bolus. Plan: Oral metoprolol 50 mg twice daily. Warfarin started also 3. Severe bilateral carotid artery stenosis: Manage medically with Plavix, statin, BP control. He also has coronary atherosclerosis noted on CTA of his chest. He would be fairly high risk for surgical intervention and would need preop cardiac clearance prior. 4. Severe peripheral artery disease: He has extensive pelvic and femoral atherosclerosis on CTA. There is no clinical evidence of acute limb ischemia. He does not want to have any intervention at this point but he may change his mind 5. Hypertension: BP adequate in setting of acute CVA. Continue lisinopril 20 mg daily started last admission and metoprolol tartrate 50 mg twice daily started this admission. 5. Biliary pancreatitis with retained distal common bile duct stone status post open cholecystectomy and T-tube drainage. He is scheduled for follow-up with Dr. Tato Lamb who did his surgery on his last admission with plans for referral for ERCP. 6. Severe COPD, current smoker: He has severe emphysematous changes on CT. Encouraged to quit smoking. No acute respiratory problems. 7. 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 There is suspicion for malignancy. Patient is informed of this finding. He can have outpatient PET-CT for further evaluation. This probably should be done prior to any vascular intervention just to see if he has cancer. So a PET scan should probably be done 1st thing as an outpatient 8. Severe protein calorie malnutrition, noted on last admission, still present. Continue with nutritional support 9. Right posterior thigh compartment mass found on CT scan. Uncertain etiology at some point could be evaluated with MRI. Disposition: Continue inpatient care. Patient will likely need half-way rehab upon discharge. He was previously followed at [facility] and will need to reestablish care as has not seen a primary care provider in a number of years. Quality VTE Deep Vein Thrombosis/Pulmonary Embolism Present on Admission: No
--- NOTE | 2018-08-25 12:44 | OT.IP.TRT ---
Current Diagnoses Unspecified atrial fibrillation (08/23/18) Occupational Therapy Treatment Note M2 OT-IP Current Condition Start: 08/23/18 17:07 Freq: Status: Active Protocol: Document 08/23/18 17:22 [facility] (Rec: 08/23/18 17:40 [facility] [id number]) Occupational Therapy Current Condition Current Condition Evaluation Date 08/23/18 Treatment Diagnosis CVA, Afib/RVR Post Operative Precautions Abdominal Surgery Precautions Log Roll Lifting Restrictions Gait Belt above Incisional Area Other Precautions drain, T-tube M3 OT- IP Subjective and Pain Start: 08/23/18 17:07 Freq: Status: Active Protocol: Document 08/25/18 12:19 [facility] (Rec: 08/25/18 12:44 [facility] [id number]) OT- Subjective Occupational Therapy Visit Type Type Treatment Note Visit Start Time 11:45 Visit Stop Time 12:10 Total Visit Minutes 25 Occupational Therapy Visit Comments Patient Comments Pt agreeable to get up. OT Pain Assessment Pain When Pain Assessed At Rest Pain Present Pain Present Denied Pain M4 OT- IP ADL's Start: 08/23/18 17:07 Freq: Status: Active Protocol: Document 08/25/18 12:19 [facility] (Rec: 08/25/18 12:44 [facility] [id number]) OT ADL-Dressing General Eval Lower Body Dressing Ability Moderate Assistance Areas Needing Assistance Socks Comments OT Dressing Comments Able to educate pt's to ana/doff compression stockings. While pt sitting on the edge of the bed and trying to assist to ana stocking, pt falling back into posterior tilt. OT ADL-Toileting General Evaluation Toileting Ability Standby Assistance Contact Guard Assistance Areas Needing Assistance Manage Clothing Perform Perineal Hygiene Devices Toileting Assistive Devices Grab Bars Comments OT Toileting Comments Pt able to do pericare while sitting and needing assist for for clothing as pt able to pull up brief over his hips . M6 OT- IP Functional Cognition Start: 08/23/18 17:07 Freq: Status: Active Protocol: Document 08/25/18 12:19 [facility] (Rec: 08/25/18 12:44 [facility] [id number]) Cognitive Factors Limiting Selfcare Function Cognitive Ability Level of Alertness Alert Patient Orientation Name Age Date Year Day of Week Place Attention Span Ability Capable of Focused Attention Capable of Sustained Attention Ability to Follow Commands Able to Follow One Step Commands Memory Description Short Term Impaired Safety Awareness Underestimates Need for Assistance Problem Solving Ability Needs Assist to Identify Solutions Cognitive Comments Cognitive Assessment Comments Pt persistent on wanting to go home even though realizes would benefit from rehab. M7 OT- IP Mobility and Balance Start: 08/23/18 17:07 Freq: Status: Active Protocol: Document 08/25/18 12:19 [facility] (Rec: 08/25/18 12:44 [facility] [id number]) OT- Bed Mobility Assessment Rolling Type of Rolling Roll to Right Level of Assistance Standby Assistance Supine to Sit Supine to Sit Assist Standby Assistance Sit to Supine Sit to Supine Assist Standby Assistance OT-Transfer Assessment Sit to and From Stand Sit to and from Stand Contact Guard Assistance 1 Person Assistance Transfers Transfer Ability Contact Guard Assistance 1 Person Assistance Technique Transfer Destination Bed Toilet Devices Transfer Assistive Devices Gait Belt Front Wheeled Walker Comments Mobility Comments CGA to stand and occasional CGA for balance when up with FWW. Pt's has good understanding to assist pt for all bed mobility and transfer needs. OT- Balance Assessment Sitting Balance and Reactions Static Sitting Balance Ability Good Dynamic Sitting Balance Ability Fair Standing Balance and Reactions Static Standing Balance Ability Fair Dynamic Standing Balance Ability Fair M8 OT- IP Objective Assessments Start: 08/23/18 17:07 Freq: Status: Active Protocol: Document 08/23/18 17:22 [facility] (Rec: 08/23/18 17:40 [facility] [id number]) OT Gross Range of Motion Upper Extremity Range of Motion Assessment Within Functional Limits OT Strength Comments Strength Comments RUE 4/5, LUE4-/5 OT- Coordination Assessment Upper Extremity Finger to Nose Test Bilateral UE Impaired Comments Coordination Comments L finger mildly impaired compared to R finger. OT Sensation Assessment Comments Summary Comments BUE, WFL for light touch, proprioception, and kinesthesia. M9 OT- IP Assessment and Plan Start: 08/23/18 17:07 Freq: Status: Active Protocol: Document 08/25/18 12:19 [facility] (Rec: 08/25/18 12:44 [facility] [id number]) OT Summary Assessment and Plan Potential Rehabilitation Potential Good Analytic Complexity at Evaluation Moderate Summary OT Impairments Strength Balance Coordination Functional Cognition Functional Mobility Dressing Toileting Bathing Toilet Transfers Shower Transfers Progress Towards Goals Progressing Toward Goals Assessment Summary Pt making improvement with ADl 's, functional movement, and now involved with family training. Pt refusing to go to any type of rehab and insistent on going home. Pending family training, pt would benefit from SNF, however if able to assist pt for all needs recommended home with 24/7 assist and home health. Goals Grooming Goal Standby Assistance Dressing Goal Minimal Assistance Toileting Goal Standby Assistance Bathing Goal Minimal Assistance Toilet Transfer Goal Standby Assistance Shower Transfer Goal Minimal Assistance Patient/Caregiver Education Goal Caregiver Independent Assisting Patient Days to Meet Goals 5 Frequency of Treatment Frequency Of Treatment Once a Day Treatment Plan OT Treatment Plan ADL Training Functional Cognition Training Functional Mobility Patient/Family Education Discharge Planning Other Treatment Recommendations and Next Continue family training with Treatment Focus . Discharge Recommendations OT Discharge Recommendations Home with 24/7 Assist Home Health SNF Rehab
--- NOTE | 2018-08-25 16:36 | PC.NURSE ---
[employer]- Pt A&OX4, pleasant and cooperative, able to make needs known using call light. Denies pain, discomfort, nausea. NIH scale score was 1. Pt had slight LLE drift holding for 10 seconds. OOB with PT this AM, tolerated well. Pt motivated to get better and in good spirits today. Abd incisions X2 well approximated with steri-strips intact. KENDRA to right side abd on bulb suction draining serous fluid. Right abd t-tube to gravity with dark green fluid in bag. No voiced concerns.
--- NOTE | 2018-08-25 16:39 | PT.IPTN ---
Current Diagnoses Unspecified atrial fibrillation (08/23/18) Physical Therapy Treatment Note M2 PT-IP Current Condition Start: 08/23/18 14:42 Freq: NEEDED Status: Active Protocol: Document 08/23/18 13:45 AB (Rec: 08/23/18 14:51 AB [id number]) Physical Therapy Current Condition Current Condition Evaluation Date 08/23/18 Treatment Diagnosis CVA Onset Date 08/23/18 Precautions Abdominal Surgery Precautions Log Roll Lifting Restrictions Gait Belt above Incisional Area Other Precautions drain, T-tube M3 PT-IP Subjective Start: 08/23/18 14:42 Freq: NEEDED Status: Active Protocol: Document 08/25/18 16:30 LJ (Rec: 08/25/18 16:39 LJ [id number]) Subjective Physical Therapy Visit Type Type Treatment Note Visit Start Time 16:00 Visit Stop Time 16:24 Total Visit Minutes 24 Physical Therapy Visit Comments Patient Comments Pt in bed willing to ambulate M4 PT-IP Mobility and Gait Start: 08/23/18 14:42 Freq: NEEDED Status: Active Protocol: Document 08/25/18 16:30 LJ (Rec: 08/25/18 16:39 LJ [id number]) PT-Bed Mobility Assessment Rolling Type of Rolling Roll to Right Level of Assist Standby Assistance Supine to Sit Supine to Sit Standby Assistance Sit to Supine Sit to Supine Standby Assistance Scooting Scooting to Edge of Bed Standby Assistance Scooting Up and Down in Bed Standby Assistance PT-Transfer Assessment Sit to and From Stand Sit to and from Stand Contact Guard Assistance 1 Person Assistance Equipment Transfer Assistive Device Gait Belt Front Wheeled Walker Orthotic/Prosthetic Devices or Brace: No Transfers Transfer Destination Bed Chair Transfer Technique Stand Step Pivot Transfer Ability Level of Assist Contact Guard Assistance 1 Person Assistance Comments Mobility Comments O2 level remained at 97 during mobility. Pt LLE buckled x 1 during standing at side of bed . Pt able to recover balance. Remained yolanda during ambulation in room. Gait Assessment Gait Gait Assistance Required: Contact Guard Assist Distance (Feet) 40 Assistive Devices Assistive Device Gait Belt Front Wheeled Walker Orthotic/Prosthetic Devices or Brace: No Gait Deviations General Gait Pattern Antalgic Flexed Trunk Factors Limiting Gait Function Factors Limiting Gait Function Decreased Activity Tolerance Decreased Strength Poor Balance Comments Gait Comments Pt ambulated around room x 3 then sat in chair for seated exercises. Returned to bed SBA . M5 PT-IP Objective Assessments Start: 08/23/18 14:42 Freq: NEEDED Status: Active Protocol: Document 08/23/18 13:45 AB (Rec: 08/23/18 14:51 AB [id number]) Orientation Orientation/Cognition Level of Alertness Alert Orientation Name Age Birthday Month Date Year Day of Week Place Situation Gross Range of Motion Lower Extremity ROM Assessment Within Functional Limits Strength Lower Extremity Strength Assessment Left Impaired Knee 3-/5 Coordination Assessment Assessment Heel on Schultz Test Moderate Impairment Sensation Assessment Sensation Gross Sensation WNL Light Touch Intact M6 PT-IP Treatment Start: 08/23/18 14:42 Freq: NEEDED Status: Active Protocol: Document 08/25/18 16:30 LJ (Rec: 08/25/18 16:39 LJ [id number]) Physical Therapy Treatment Exercises Exercises Ankle Pumps Gluteal Sets Quad Sets Heel Slides Straight Leg Raises Seated Knee Flexion/Extension Education Education Provided Safety Other Treatments Other Treatment Performed Completed LE ther ex while seated in chair. Tolerated well. Educated pt on stabilizing core muscles during standing nd ambulating. M7 PT-IP Assessment and Plan Start: 08/23/18 14:42 Freq: NEEDED Status: Active Protocol: Document 08/25/18 16:30 LJ (Rec: 08/25/18 16:39 LJ [id number]) PT Summary Assessment and Plan Potential Rehabilitation Potential Good Status of Condition at Evaluation Evolving Summary Assessment Summary Pt SBA for all bed mobility and transfers. CGA during ambulation for safety in case LLE raghu. Pt able to correct buckling with no further LOB Frequency of Treatment Frequency Of Treatment Twice a Day Treatment Plan Physical Therapy Treatment Plan Bed Mobility Training Transfer Training Gait Training Therapeutic Exercise Balance Retraining Discharge Planning Neuromuscular Re-ed Coordination Retraining Recommendations To Nursing Amount of Assist Needed 1 Person Assist
[2018-08-25] MEDS: WARFARIN 3 MG TABLET PO (16:56)
[2018-08-25] MEDS: ATORVASTATIN 20 MG TABLET 40 MG PO (20:21)
[2018-08-26] VITALS (10 sets, daily range): BP systolic 136–194; BP diastolic 63–81; PULSE 62–77; RESP 16–22; TEMP 36.2–36.7; O2SAT 94–100
--- NOTE | 2018-08-26 00:47 | PC.NURSE ---
Addendum entered by Annamaria Dover R.N. 08/26/18 05:57: Slept at intervals. Continues to decline SCD's but still wearing LANDON stockings. BP has been elevated tonight at 186/79 and 194/81. Continues to deny pain. Original Note: Patient is alert and oriented. Breath sounds CTA with RA sat of 97%; on continuous pulse oximetry per MD order. HR irregular with tele reading of SR with frequent PVC's. Denies nausea. BT present and had BM yesterday. Voiding per urinal and has been continent. Able to turn himself in bed. Denies pain. Wearing bilateral LANDON stockings but refusing SCD's tonight stating I'll take the risk when discussed purpose of SCD's. Noted continued non pitting edema in bilateral ankles. Incisions to abdomen/ umbilicus are steri stripped, well approximated and without redness/drainage. KENDRA is intact and compressed; serous drainage. T-tube is intact to gravity with brown/green fluid in bag. Drain insertion sites are covered with dressing which is CDI. Fall risk score is high and bed alarm is activated. NIH remains 1 for slight left leg drift.
[2018-08-26] MEDS: LISINOPRIL 20 MG TABLET PO ×2 (08:51→20:03)
[2018-08-26] MEDS: CLOPIDOGREL 75 MG TABLET PO (08:51)
[2018-08-26] MEDS: METOPROLOL IR 50 MG TABLET PO ×2 (08:52→20:03)
[2018-08-26] MEDS: SODIUM CHLORIDE 0.9% FLUSH 10 ML IV ×2 (08:52→20:03)
[2018-08-26] MEDS: ENOXAPARIN 40 MG/0.4 ML SYRINGE SUBCUT (08:52)
--- NOTE | 2018-08-26 10:33 | P.PN_ITS ---
Subjective Date Patient Seen: 08/26/18 Time Patient Seen: 10:31 Interval history: Feeling a little stronger no new complaints Exam Vital Signs (past 8 hours): - 08/26/18 05:05 08/26/18 07:50 08/26/18 08:51 Temperature 97.4 F L 97.7 F Pulse Rate 75 77 Respiratory Rate 20 18 Blood Pressure 194/81 H 169/80 H 169/80 H Pulse Oximetry 98 99 08/26/18 09:11 Temperature Pulse Rate Respiratory Rate Blood Pressure Pulse Oximetry 94 Oxygen Delivery Method Room Air Oxygen Flow Rate 0 Narrative Exam Narrative: Awake alert oriented speech normal Oropharynx clear Neck is supple Heart regular rhythm Lungs are clear Abdomen soft drainage tube in place from the bile duct site clear Lower extremities no edema Neuro exam still with some left lower extremity weakness from previous exam no change Lower extremities no edema Objective Labs Result Diagrams: 08/25/18 05:55 08/23/18 08:12 Assessment & Plan Plan: Assessment/Plan Narrative: 1. Acute multifocal bilateral CVA, likely embolic from extensive atherosclerosis in thoracic aorta and/or due to atrial fib/flutter. Patient presented with acute left-sided weakness and now primarily with left lower extremity and truncal weakness. MR stroke protocol with evidence of bilateral multifocal small subacute and chronic infarction in frontoparietal lobes left greater than right. On MRA portion he has high-grade right greater than left bilateral internal carotid origin stenoses. We have placed him on Plavix and will also start the warfarin for the AFib. Patient would benefit from evaluation by vascular surgery for the carotid stenosis. Statin also started even know his total cholesterol is less than 50 which is probably reflective of his nutritional status continue with physical therapy for now He has at this point decided not to pursue any further evaluation vascular workup for his problems. He understands that he is very high risk for stroke. He wants to get home which is understandable. We will talk about this again may be when he is on it a little better mood to talk about interventions that need to be done 2. Paroxysmal atrial flutter with RVR: Converted to sinus rhythm after Cardizem bolus. Plan: Oral metoprolol 50 mg twice daily. Warfarin started also 3. Severe bilateral carotid artery stenosis: Manage medically with Plavix, statin, BP control. He also has coronary atherosclerosis noted on CTA of his chest. He would be fairly high risk for surgical intervention and would need preop cardiac clearance prior. 4. Severe peripheral artery disease: He has extensive pelvic and femoral atherosclerosis on CTA. There is no clinical evidence of acute limb ischemia. He does not want to have any intervention at this point but he may change his mind 5. Hypertension: Blood pressure mildly elevated with systolic up to 190 on occasion. Plan to increase the lisinopril to b.i.d. 5. Biliary pancreatitis with retained distal common bile duct stone status post open cholecystectomy and T-tube drainage. He is scheduled for follow-up with Dr. Tato Lamb who did his surgery on his last admission with plans for referral for ERCP. 6. Severe COPD, current smoker: He has severe emphysematous changes on CT. Encouraged to quit smoking. No acute respiratory problems. 7. 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 There is suspicion for malignancy. Patient is informed of this finding. He can have outpatient PET-CT for further evaluation. This probably should be done prior to any vascular intervention just to see if he has cancer. So a PET scan should probably be done 1st thing as an outpatient 8. Severe protein calorie malnutrition, noted on last admission, still present. Continue with nutritional support 9. Right posterior thigh compartment mass found on CT scan. Uncertain etiology at some point could be evaluated with MRI. Disposition: Continue inpatient care. Patient is insistent on going home so he is declined inpatient rehab for the stroke and declines meth. Probably will be ready for discharge home on Tuesday. He will follow up with Dr. Lamb general surgery about the ERCP and getting the stone removed. He is wanting to establish also primary care with me Dr. Paredes. I see his already. I am happy to see him however he might need to see 1 of the physician assistants initially due to timing. it may be several weeks before I can see him in the office but could probably establish with initially with Dr. Kuo or with Josias at the office of [facility] [phone] Quality VTE Deep Vein Thrombosis/Pulmonary Embolism Present on Admission: No
--- NOTE | 2018-08-26 11:45 | PT.IPTN ---
Current Diagnoses Unspecified atrial fibrillation (08/23/18) Physical Therapy Treatment Note M2 PT-IP Current Condition Start: 08/23/18 14:42 Freq: NEEDED Status: Active Protocol: Document 08/23/18 13:45 AB (Rec: 08/23/18 14:51 AB [id number]) Physical Therapy Current Condition Current Condition Evaluation Date 08/23/18 Treatment Diagnosis CVA Onset Date 08/23/18 Precautions Abdominal Surgery Precautions Log Roll Lifting Restrictions Gait Belt above Incisional Area Other Precautions drain, T-tube M3 PT-IP Subjective Start: 08/23/18 14:42 Freq: NEEDED Status: Active Protocol: Document 08/26/18 11:45 GGD (Rec: 08/26/18 12:38 GGD [email or web address]) Subjective Physical Therapy Visit Type Type Treatment Note Visit Start Time 11:20 Visit Stop Time 11:45 Total Visit Minutes 25 Number of TEACHER EMOTIONALLY IMPAIRED Visits 5 Physical Therapy Visit Comments Patient Comments Pt would like to walk. M4 PT-IP Mobility and Gait Start: 08/23/18 14:42 Freq: NEEDED Status: Active Protocol: Document 08/26/18 11:45 GGD (Rec: 08/26/18 12:38 GGD [id number]) PT-Bed Mobility Assessment Rolling Type of Rolling Roll to Right Level of Assist Standby Assistance Supine to Sit Supine to Sit Standby Assistance Scooting Scooting to Edge of Bed Standby Assistance Scooting Up and Down in Bed Standby Assistance PT-Transfer Assessment Sit to and From Stand Sit to and from Stand Contact Guard Assistance 1 Person Assistance Equipment Transfer Assistive Device Gait Belt Front Wheeled Walker Orthotic/Prosthetic Devices or Brace: No Transfers Transfer Destination Chair Transfer Ability Level of Assist Contact Guard Assistance 1 Person Assistance Gait Assessment Gait Gait Assistance Required: Contact Guard Assist Distance (Feet) 220 Assistive Devices Assistive Device Gait Belt Front Wheeled Walker Orthotic/Prosthetic Devices or Brace: No Gait Deviations General Gait Pattern Antalgic Flexed Trunk Factors Limiting Gait Function Factors Limiting Gait Function Decreased Activity Tolerance Decreased Strength Poor Balance Comments Gait Comments Pt had mild left LE buckling with gait. M5 PT-IP Objective Assessments Start: 08/23/18 14:42 Freq: NEEDED Status: Active Protocol: Document 08/23/18 13:45 AB (Rec: 08/23/18 14:51 AB [id number]) Orientation Orientation/Cognition Level of Alertness Alert Orientation Name Age Birthday Month Date Year Day of Week Place Situation Gross Range of Motion Lower Extremity ROM Assessment Within Functional Limits Strength Lower Extremity Strength Assessment Left Impaired Knee 3-/5 Coordination Assessment Assessment Heel on Schultz Test Moderate Impairment Sensation Assessment Sensation Gross Sensation WNL Light Touch Intact M6 PT-IP Treatment Start: 08/23/18 14:42 Freq: NEEDED Status: Active Protocol: Document 08/26/18 11:45 GGD (Rec: 08/26/18 12:38 GGD [id number]) Physical Therapy Treatment Exercises Exercises Ankle Pumps Seated Knee Flexion/Extension Other Treatments Other Treatment Performed Sit to stand from chair. Standing balance with WBOS with EO,EC, feet togeter with EO and head turns. M7 PT-IP Assessment and Plan Start: 08/23/18 14:42 Freq: NEEDED Status: Active Protocol: Document 08/26/18 11:45 GGD (Rec: 08/26/18 12:38 GGD [id number]) PT Summary Assessment and Plan Summary Assessment Summary Pt had mild unsteadiness with gait and left knee buckling. He was able to control knee budckling with use of FWW. He was mild LOB with balance with NBOS and uable to place feet together withoutl UE support. He would benifit from acute rehab, but want's to D/C home. Frequency of Treatment Frequency Of Treatment Twice a Day Treatment Plan Other Recommendations and Next Treatment Balance, strengthening and Focus gait with 4WW. Pt has 4WW at home. Recommendations To Nursing Amount of Assist Needed 1 Person Assist Discharge Recommendations PT Discharge Recommendations Acute Rehab
--- NOTE | 2018-08-26 14:59 | PT.IPTN ---
Current Diagnoses Unspecified atrial fibrillation (08/23/18) Physical Therapy Treatment Note M2 PT-IP Current Condition Start: 08/23/18 14:42 Freq: NEEDED Status: Active Protocol: Document 08/26/18 14:59 RCC (Rec: 08/26/18 15:42 RCC [id number]) Physical Therapy Current Condition Current Condition Evaluation Date 08/23/18 Treatment Diagnosis CVA Onset Date 08/23/18 Precautions Abdominal Surgery Precautions Log Roll Lifting Restrictions Gait Belt above Incisional Area Other Precautions drain, T-tube M3 PT-IP Subjective Start: 08/23/18 14:42 Freq: NEEDED Status: Active Protocol: Document 08/26/18 14:59 RCC (Rec: 08/26/18 15:42 RCC [id number]) Subjective Physical Therapy Visit Type Type Treatment Note Visit Start Time 14:33 Visit Stop Time 14:59 Total Visit Minutes 26 Number of NIB ADJUSTER Visits 0 Physical Therapy Visit Comments Patient Comments Pt denies lightheadedness, reports his LLE feels a little stronger after ambulation. M4 PT-IP Mobility and Gait Start: 08/23/18 14:42 Freq: NEEDED Status: Active Protocol: Document 08/26/18 14:59 RCC (Rec: 08/26/18 15:42 RCC [id number]) PT-Bed Mobility Assessment Rolling Type of Rolling Roll to Right Level of Assist Standby Assistance Supine to Sit Supine to Sit Standby Assistance Scooting Scooting to Edge of Bed Standby Assistance Scooting Up and Down in Bed Standby Assistance PT-Transfer Assessment Sit to and From Stand Sit to and from Stand Standby Assistance 1 Person Assistance Use of Upper Extremities Equipment Transfer Assistive Device Gait Belt Front Wheeled Walker Orthotic/Prosthetic Devices or Brace: No Transfers Transfer Destination Bed Transfer Ability Level of Assist Contact Guard Assistance 1 Person Assistance Gait Assessment Gait Gait Assistance Required: Contact Guard Assist Distance (Feet) 230 Assistive Devices Assistive Device Gait Belt Front Wheeled Walker Orthotic/Prosthetic Devices or Brace: No Gait Deviations General Gait Pattern Decreased Feet Clearance Flexed Trunk Factors Limiting Gait Function Factors Limiting Gait Function Decreased Activity Tolerance Decreased Strength Poor Balance Comments Gait Comments No buckling but evident fatigue of LLE at end of ambulation. M5 PT-IP Objective Assessments Start: 08/23/18 14:42 Freq: NEEDED Status: Active Protocol: Document 10/31/18 13:45 AB (Rec: 08/23/18 14:51 AB [id number]) Orientation Orientation/Cognition Level of Alertness Alert Orientation Name Age Birthday Month Date Year Day of Week Place Situation Gross Range of Motion Lower Extremity ROM Assessment Within Functional Limits Strength Lower Extremity Strength Assessment Left Impaired Knee 3-/5 Coordination Assessment Assessment Heel on Schultz Test Moderate Impairment Sensation Assessment Sensation Gross Sensation WNL Light Touch Intact M6 PT-IP Treatment Start: 08/23/18 14:42 Freq: NEEDED Status: Active Protocol: Document 08/26/18 14:59 [facility] (Rec: 08/26/18 15:42 RCC [id number]) Physical Therapy Treatment Exercises Exercises Ankle Pumps Quad Sets Straight Leg Raises Education Education Provided Safety M7 PT-IP Assessment and Plan Start: 08/23/18 14:42 Freq: NEEDED Status: Active Protocol: Document 08/26/18 14:59 RCC (Rec: 08/26/18 15:42 [facility] [id number]) PT Summary Assessment and Plan Summary Assessment Summary Pt with decreased foot clearance on the L and excessive knee flexion and hip flexor activation during gait due to fatigue of the tibialis anterior and quadriceps. Pt with impaired coordination/stability of the LLE with SLR. Ideally, pt would greatly benefit from Acute rehab vs. OP PT, but he does not want to consider either at this point, possibly OP PT down the road. Goals Bed Mobility Goal Standby Assistance Transfer Goal Standby Assistance Front Wheeled Walker Gait Goal Standby Assistance Front Wheel Walker Gait Distance 50 Days to Meet Goals 5 Frequency of Treatment Frequency Of Treatment Twice a Day Treatment Plan Other Recommendations and Next Treatment 4WW gait trial, balance and LE Focus thera. ex. Recommendations To Nursing Amount of Assist Needed 1 Person Assist Discharge Recommendations PT Discharge Recommendations Acute Rehab
[2018-08-26] MEDS: WARFARIN 3 MG TABLET PO (17:04)
--- NOTE | 2018-08-26 17:09 | OT.IP.TRT ---
Current Diagnoses Unspecified atrial fibrillation (08/23/18) Occupational Therapy Treatment Note M2 OT-IP Current Condition Start: 08/23/18 17:07 Freq: Status: Active Protocol: Document 08/23/18 17:22 [facility] (Rec: 08/23/18 17:40 [facility] [id number]) Occupational Therapy Current Condition Current Condition Evaluation Date 08/23/18 Treatment Diagnosis CVA, Afib/RVR Post Operative Precautions Abdominal Surgery Precautions Log Roll Lifting Restrictions Gait Belt above Incisional Area Other Precautions drain, T-tube M3 OT- IP Subjective and Pain Start: 08/23/18 17:07 Freq: Status: Active Protocol: Document 08/26/18 17:09 [facility] (Rec: 08/26/18 17:09 [facility] [id number]) OT- Subjective Occupational Therapy Visit Type Type Administrative Note Notes Pt eating dinner and not able to be seen for OT.
[2018-08-26] MEDS: ATORVASTATIN 20 MG TABLET 40 MG PO (20:03)
[2018-08-27] VITALS: BP 162/84; PULSE 70; RESP 16; TEMP 36.7; O2SAT 96; O2SAT 98
[2018-08-27 03:00] VITALS: BP 156/77; PULSE 87; RESP 16; TEMP 36.4; O2SAT 99
[2018-08-27 05:59] LABS: Add Manual Diff / Slide Review NO; Basophils Percent Auto 0.4 % (0-2); Eosinophils Percent Auto 2.5 % (2-4); Hematocrit 40.4 % (41-53); Hemoglobin 13.4 g/dL (13.5-17.5); Lymphocytes Percent Auto 13.2 % (25-40); Mean Corpuscular HGB Conc 33.2 % (30-36); Mean Corpuscular Hemoglobin 27.4 PG (26-34); Mean Corpuscular Volume 82.6 fL (80-100); Monocytes Percent Auto 8.8 % (3-14); Neutrophils Absolute Auto 5100 /uL (3000-5900); Neutrophils Percent Auto 75.1 % (50-75); Platelet Count 300 X10^3/uL (150-400); Red Blood Cell Count 4.89 X10^6/uL (4.5-5.9); Red Cell Distribution Width 15.2 % (11.6-14.8); White Blood Cell Count 6.8 X10^3/uL (4.5-11.0)
[2018-08-27 06:00] LABS: INR 1.9 (0.9-1.3)
[2018-08-27 06:04] LABS: Albumin 3.4 g/dL (3.5-5.0); Albumin Globulin Ratio 1.1 (1.0-2.8); Alkaline Phosphatase 86 U/L (38-126); Aspartate Aminotransferase 42 IU/L (17-59); BUN Creatinine Ratio 18.3 (6-22); Bilirubin Total 0.4 mg/dL (0.2-1.3); Blood Urea Nitrogen 11 mg/dL (9-20); Calcium 8.8 mg/dL (8.4-10.2); Carbon Dioxide 25 mmol/L (22-32); Estimated Glomerular Filt Rate > 60.0 mL/min (>60); Glucose 94 mg/dL (80-110); HEMOLYSIS < 15 (0-50); Total Protein 6.4 g/dL (6.3-8.2)
[2018-08-27 06:50] LABS: Alanine Aminotransferase 46 IU/L (21-72); Chloride 104 mmol/L (98-107); Potassium 4.4 mmol/L (3.4-5.1); Sodium 143 mmol/L (137-145)
[2018-08-27 07:30] VITALS: BP 156/77; PULSE 78; RESP 16; TEMP 36.3; O2SAT 96
[2018-08-27 08:00] VITALS: O2SAT 97
[2018-08-27] MEDS: SODIUM CHLORIDE 0.9% FLUSH 10 ML IV (08:09)
[2018-08-27] MEDS: METOPROLOL IR 50 MG TABLET PO (08:12)
[2018-08-27] MEDS: CLOPIDOGREL 75 MG TABLET PO (08:12)
[2018-08-27] MEDS: ENOXAPARIN 40 MG/0.4 ML SYRINGE SUBCUT (08:13)
[2018-08-27] MEDS: LISINOPRIL 20 MG TABLET PO (08:13)
[2018-08-27 11:00] VITALS: BP 148/60; PULSE 69; RESP 18; TEMP 36.5; O2SAT 96
--- NOTE | 2018-08-27 11:05 | PT.IPTN ---
Current Diagnoses Unspecified atrial fibrillation (08/23/18) Physical Therapy Treatment Note M2 PT-IP Current Condition Start: 08/23/18 14:42 Freq: NEEDED Status: Active Protocol: Document 08/26/18 14:59 RCC (Rec: 08/26/18 15:42 RCC [id number]) Physical Therapy Current Condition Current Condition Evaluation Date 08/23/18 Treatment Diagnosis CVA Onset Date 08/23/18 Precautions Abdominal Surgery Precautions Log Roll Lifting Restrictions Gait Belt above Incisional Area Other Precautions drain, T-tube M3 PT-IP Subjective Start: 08/23/18 14:42 Freq: NEEDED Status: Active Protocol: Document 08/27/18 08:59 LJ (Rec: 08/27/18 11:05 LJ [id number]) Subjective Physical Therapy Visit Type Type Treatment Note Visit Start Time 08:59 Visit Stop Time 09:21 Total Visit Minutes 22 Physical Therapy Visit Comments Patient Comments Pt willing to ambulate in hallway. Reports having done exercises on sheet given him yesterday. M4 PT-IP Mobility and Gait Start: 08/23/18 14:42 Freq: NEEDED Status: Active Protocol: Document 08/27/18 08:59 LJ (Rec: 08/27/18 11:05 LJ [id number]) PT-Bed Mobility Assessment Rolling Type of Rolling Roll to Right Level of Assist Standby Assistance Supine to Sit Supine to Sit Standby Assistance Scooting Scooting to Edge of Bed Standby Assistance Scooting Up and Down in Bed Standby Assistance PT-Transfer Assessment Sit to and From Stand Sit to and from Stand Standby Assistance 1 Person Assistance Use of Upper Extremities Equipment Transfer Assistive Device Gait Belt Front Wheeled Walker Orthotic/Prosthetic Devices or Brace: No Transfers Transfer Destination Bed Transfer Ability Level of Assist Standby Assistance Gait Assessment Gait Gait Assistance Required: Standby Assistance Distance (Feet) 410 Assistive Devices Assistive Device Gait Belt Front Wheeled Walker Orthotic/Prosthetic Devices or Brace: No Gait Deviations General Gait Pattern Decreased Stride Length Decreased Feet Clearance Factors Limiting Gait Function Factors Limiting Gait Function Decreased Activity Tolerance Decreased Strength Poor Balance Comments Gait Comments No LLE buckling. Pt required 1 short rest break after ambulating 260' then resumed ambulation another 150' to room. Independent with back to bed mobility M5 PT-IP Objective Assessments Start: 08/23/18 14:42 Freq: NEEDED Status: Active Protocol: Document 08/23/18 13:45 AB (Rec: 08/23/18 14:51 AB [id number]) Orientation Orientation/Cognition Level of Alertness Alert Orientation Name Age Birthday Month Date Year Day of Week Place Situation Gross Range of Motion Lower Extremity ROM Assessment Within Functional Limits Strength Lower Extremity Strength Assessment Left Impaired Knee 3-/5 Coordination Assessment Assessment Heel on Schultz Test Moderate Impairment Sensation Assessment Sensation Gross Sensation WNL Light Touch Intact M6 PT-IP Treatment Start: 08/23/18 14:42 Freq: NEEDED Status: Active Protocol: Document 08/27/18 08:59 LJ (Rec: 08/27/18 11:05 LJ [id number]) Physical Therapy Treatment Exercises Exercises Ankle Pumps Gluteal Sets Quad Sets Heel Slides Straight Leg Raises Seated Knee Flexion/Extension Education Education Provided Safety M7 PT-IP Assessment and Plan Start: 08/23/18 14:42 Freq: NEEDED Status: Active Protocol: Document 08/27/18 08:59 LJ (Rec: 08/27/18 11:05 LJ [id number]) PT Summary Assessment and Plan Summary Assessment Summary Pt improved LLE foot clearance with min cueing. Aware of proper gait pattern and is working toward normalizing gait to improve foot clearance and stride length as well as proper body position in FWW. Goals Bed Mobility Goal Standby Assistance Transfer Goal Standby Assistance Front Wheeled Walker Gait Goal Standby Assistance Front Wheel Walker Gait Distance 50 Days to Meet Goals 5 Frequency of Treatment Frequency Of Treatment Twice a Day Recommendations To Nursing Amount of Assist Needed 1 Person Assist Discharge Recommendations PT Discharge Recommendations Acute Rehab
--- NOTE | 2018-08-27 13:46 | P.DS_ITS ---
History of Present Illness Chief complaint: Left leg weakness, FAST negative. Discharge Providers Date of admission: 08/23/18 02:48 Primary care physician: He is a planning to establish primary care with Dr. Tato Paredes Consults: 08/23/18 10:08 Consult to Occupational Therapy Evaluate & Treat Comment: Physician Instructions: Evaluate and treat Consult to Physical Therapy Evaluate & Treat Comment: Physician Instructions: Evaluate and Treat Consult to Speech Therapy Evaluate & Treat Comment: Physician Instructions: Evaluate and treat Discharge provider: Philly Kuo MD Discharge Date: 08/27/18 Summary Discharge Diagnosis: 1. Acute embolic CVA 2. Paroxysmal atrial fibrillation with rapid ventricular response 3. Severe peripheral arterial disease with bilateral carotid artery stenosis 4. Recent acute cholecystitis with gallstone pancreatitis with retained distal common bile duct stone, status post open cholecystectomy and T-tube drainage 5. Severe COPD 6. Severe protein calorie malnutrition 7. Right posterior thigh compartment mass found on the CT scan, uncertain etiology 8. Tobacco abuse 9. Code status: Do not resuscitate Hospital Course: Patient was started on Coumadin for anticoagulation for paroxysmal atrial fibrillation. He was also started on Plavix for severe peripheral arterial disease and recent CVA. He was also started on statin. He had improvement of his left-sided weakness. He received physical therapy and occupational therapy. He is able to ambulate independently without difficulty. Vascular surgery consultation was recommended. Patient does not want to proceed with the vascular surgery at this point. He had recent open cholecystectomy and T-tube drain placed. The drain to of has normal output. He also has a KENDRA drain that has minimal output. He has follow-up appointment with Dr. Lamb on September 05. He has a common bile duct stone. Dr. Lamb is going to arrange for ERCP in the future for removal of the common bile duct stone. Patient is a chronic smoker. We have discussed about the importance of smoking cessation. He has no intention of quitting smoking. He also was found to have probable left lung cavitary mass. There is suspicion for malignancy. He needs outpatient PET scan for further evaluation. He received nutritional consult. Encourage oral intake. He was found to have right posterior thigh mass on CT scan. The mass also lead needs outpatient evaluation with possible MRI scan. Exam Vital Signs (past 8 hours): - 08/27/18 07:30 08/27/18 08:00 08/27/18 11:00 Temperature 97.4 F L 97.7 F Pulse Rate 78 69 Respiratory Rate 16 18 Blood Pressure 156/77 H 148/60 H Pulse Oximetry 96 97 96 Oxygen Delivery Method Room Air Oxygen Flow Rate 0 Objective Imaging MRI - head: Radiologist's impression: BRAIN MRI: 1. Multifocal small subacute infarcts within the left greater than right frontoparietal lobes as described above, consistent with emboli from a central (i.e., cardiac or ascending thoracic aortic) source. 2. Volume loss. Multifocal small chronic right-sided cerebral infarcts. 3. Right maxillary sinus disease. BRAIN MR ANGIOGRAM: Negative cerebral MR angiography. NECK MR ANGIOGRAM: 1. High-grade right greater than left bilateral internal carotid origin stenoses. 2. Patent bilateral vertebral arteries. 3. Left apical pulmonary abnormalities as seen by CT. Labs Result Diagrams: 08/27/18 05:29 08/27/18 05:29 Labs: Laboratory Results - last 24 hr 08/27/18 08/27/18 08/27/18 05:29 05:29 05:29 WBC 6.8 RBC 4.89 Hgb 13.4 L Hct 40.4 L MCV 82.6 MCH 27.4 MCHC 33.2 RDW 15.2 H Plt Count 300 Neut % (Auto) 75.1 H Lymph % (Auto) 13.2 L [place] % (Auto) 8.8 Eos % (Auto) 2.5 Baso % (Auto) 0.4 Neut # (Auto) 5100 PT 21.0 H D INR 1.9 H Sodium 143 Potassium 4.4 Chloride 104 Carbon Dioxide 25 BUN 11 Creatinine 0.60 L Estimated GFR > 60.0 BUN/Creatinine Ratio 18.3 Glucose 94 Calcium 8.8 Total Bilirubin 0.4 AST 42 ALT 46 Alkaline Phosphatase 86 Total Protein 6.4 Albumin 3.4 L Globulin 3.0 Albumin/Globulin Ratio 1.1 Discharge Plan Discharge Plan Patient Disposition: Home Discharge comment: Establish primary care with Dr. Paredes. Follow up with Dr. Lamb as previously scheduled on 09/05/2018. Check INR in two days at [facility] Discharge Med Rec/Prescriptions Prescriptions: New atorvastatin [Lipitor] 20 mg Tablet 40 mg PO BEDTIME Qty: 30 RF: 0 lisinopril 20 mg Tablet 20 mg PO BID Qty: 60 RF: 0 clopidogrel [Plavix] 75 mg Tablet 75 mg PO DAILY Qty: 30 RF: 0 warfarin [Coumadin] 3 mg Tablet 3 mg PO 1700 Qty: 30 RF: 0 metoprolol tartrate 50 mg Tablet 50 mg PO BID Qty: 60 RF: 0 levalbuterol tartrate [Xopenex HFA] 45 mcg/actuation HFA aerosol inhaler 2 puff INHALATION Q4-6H PRN (Reason: shortness of breath) 30 Days Qty: 15 RF : 0 Continue acetaminophen [Tylenol] 325 mg tablet 650 mg PO Q6H PRN (Reason: pain, mild) Qty: 30 RF: 0 docusate sodium 100 mg capsule 100 mg PO BID Qty: 30 RF: 0 Discontinued lisinopril 20 mg tablet 20 mg PO DAILY Qty: 30 RF: 0 Provider Discharge Instructions Diet: Low-fat Activity: as tolerated Skin/Wound/Dressing Care Report to your healthcare provider any signs of infection, such as:: chills, fever, increased pain and unusual drainage Visit Report/Discharge Packet Instructions: Carotid Artery Endarterectomy Discharge Data Attending Provider: Lambert Payton Admit Date/Time: 08/23/18 02:48 Quality VTE Deep Vein Thrombosis/Pulmonary Embolism Present on Admission: No
--- NOTE | 2018-08-27 13:48 | PT.IPTN ---
Current Diagnoses Unspecified atrial fibrillation (08/23/18) Physical Therapy Treatment Note M2 PT-IP Current Condition Start: 08/23/18 14:42 Freq: NEEDED Status: Active Protocol: Document 08/26/18 14:59 RCC (Rec: 08/26/18 15:42 RCC [id number]) Physical Therapy Current Condition Current Condition Evaluation Date 08/23/18 Treatment Diagnosis CVA Onset Date 08/23/18 Precautions Abdominal Surgery Precautions Log Roll Lifting Restrictions Gait Belt above Incisional Area Other Precautions drain, T-tube M3 PT-IP Subjective Start: 08/23/18 14:42 Freq: NEEDED Status: Active Protocol: Document 08/27/18 13:06 LJ (Rec: 08/27/18 13:48 LJ [id number]) Subjective Physical Therapy Visit Type Type Treatment Note Visit Start Time 13:06 Visit Stop Time 13:34 Total Visit Minutes 22 Physical Therapy Visit Comments Patient Comments Pt willing to ambulate M4 PT-IP Mobility and Gait Start: 08/23/18 14:42 Freq: NEEDED Status: Active Protocol: Document 08/27/18 13:06 LJ (Rec: 08/27/18 13:48 LJ [id number]) PT-Bed Mobility Assessment Rolling Type of Rolling Roll to Right Level of Assist Independent Supine to Sit Supine to Sit Independent Head of Bed Elevated Sit to Supine Sit to Supine Independent Scooting Scooting to Edge of Bed Independent Scooting Up and Down in Bed Independent PT-Transfer Assessment Sit to and From Stand Sit to and from Stand Standby Assistance Equipment Transfer Assistive Device Gait Belt Front Wheeled Walker Orthotic/Prosthetic Devices or Brace: No Transfers Transfer Destination Bed Transfer Ability Level of Assist Standby Assistance Comments Mobility Comments Indep with bed mobility and transfers bed<>chair. Pt performed sit<>stand from chair x 2 indep. w/o use of UEs. Cueing for scooting to edge of chair. Gait Assessment Gait Gait Assistance Required: Standby Assistance Distance (Feet) 230 Assistive Devices Assistive Device Gait Belt Front Wheeled Walker Orthotic/Prosthetic Devices or Brace: No Gait Deviations General Gait Pattern Antalgic Decreased Stride Length Decreased Feet Clearance Factors Limiting Gait Function Factors Limiting Gait Function Decreased Activity Tolerance Decreased Strength Poor Balance Comments Gait Comments # episodes of LE buckling- slight and pt was able to self -correct immediately. LLE buckle during stand>sit on bed . One rest break half way thru ambulation. Longer rest break than this am and shorter distance. PT-Balance Assessment Comments Other Balance Tests/Deviations/Treatment sit<>stand from chair x 3 at : end of hallway. Difficulty with third trial. Req'd use of UEs. M5 PT-IP Objective Assessments Start: 08/23/18 14:42 Freq: NEEDED Status: Active Protocol: Document 08/23/18 13:45 AB (Rec: 08/23/18 14:51 AB [id number]) Orientation Orientation/Cognition Level of Alertness Alert Orientation Name Age Birthday Month Date Year Day of Week Place Situation Gross Range of Motion Lower Extremity ROM Assessment Within Functional Limits Strength Lower Extremity Strength Assessment Left Impaired Knee 3-/5 Coordination Assessment Assessment Heel on Schultz Test Moderate Impairment Sensation Assessment Sensation Gross Sensation WNL Light Touch Intact M6 PT-IP Treatment Start: 08/23/18 14:42 Freq: NEEDED Status: Active Protocol: Document 08/27/18 13:06 SY (Rec: 08/27/18 13:48 [id number]) Physical Therapy Treatment Education Education Provided Safety Other Treatments Other Treatment Performed marching and weight shifting at EOB; standing glute squeezes x 5 prior to ambulation. M7 PT-IP Assessment and Plan Start: 08/23/18 14:42 Freq: NEEDED Status: Active Protocol: Document 08/27/18 13:06 SY (Rec: 08/27/18 13:48 [id number]) PT Summary Assessment and Plan Summary Assessment Summary Pt self-corrected LLE buckling x 3 during ambulation. Appeared more fatigued this afternoon than in am. Performed sit<>stand x 3 with use of UEs on third attempt but otherwise able to stand independently from chair. Goals Bed Mobility Goal Standby Assistance Transfer Goal Standby Assistance Front Wheeled Walker Gait Goal Standby Assistance Front Wheel Walker Gait Distance 50 Days to Meet Goals 5 Frequency of Treatment Frequency Of Treatment Twice a Day Treatment Plan Physical Therapy Treatment Plan Gait Training Therapeutic Exercise Recommendations To Nursing Amount of Assist Needed 1 Person Assist Discharge Recommendations PT Discharge Recommendations Acute Rehab
--- NOTE | 2018-08-27 14:53 | CM.DPC ---
DCP: continued: Dr. Kuo saw pt this afternoon and has ok'd him for d/c to home. Met with him in followup and checked in also with KASSY Brown. Pt has called his who is on her way to pick him up. He says he is very pleased to be going home. He is up and mobilizing well and he confirms he [facility]. I am supposed to see Dr. Paredes. Pt also needs to follow up on INR at [facility] in 2 days, per Dr. Kuo. [facility] will be doing final d/c paperwork and going over all with pt and his . Pt says, know I need to figure out what to do about this cigarette addiction of mine. I've been smoking for 60 years....not so easy to quit.. Pt confirms that he did complete his POLST from with Dr. Paredes yesterday and his has taken the original home to put on their fridge. Congratulated pt for meeting his goal of a d/c to home.
[2018-08-27 15:45] VITALS: BP 133/61; PULSE 73; RESP 18; TEMP 36.4; O2SAT 99
--- NOTE | 2018-08-27 15:47 | PC.NURSE ---
Day Shift- Pt A&OX4, denies pain, OOB X2 ambulated in halls with PT, tolerating well. Dr. Kuo in to see pt around 1330, pt states is ready for discharge. Pt states he was emptying his KENDRA drain and T-tube drain at home, talked about needing to keep the KENDRA drain bulb depressed for suction. Encouraged pt to write down amount totals when emptying. Pt called his to come pick him up and to review discharge teaching with the evening shift nurse.
[2018-08-27] MEDS: WARFARIN 3 MG TABLET PO (16:16)
== END 2018-08-27 16:00 | disposition home or self-care (01) | DRG 64 ==
LOC: ED 08-23 02:35 → AC 08-23 02:51
PROVIDERS: Internal Medicine; Admitting Provider Nurse Practitioner Gerontology; Emergency Provider Emergency Medicine; Visit Provider Nurse Practitioner Gerontology
DX: I63.423 Cerebral infarction due to embolism of bilateral anterior cerebral arteries (principal); K85.10 Biliary acute pancreatitis without necrosis or infection; E43 Unspecified severe protein-calorie malnutrition; G81.04 Flaccid hemiplegia affecting left nondominant side; K91.86 Retained cholelithiasis following cholecystectomy; Z68.1 Body mass index [BMI] 19.9 or less, adult; R53.1 Weakness; I70.202 Unspecified atherosclerosis of native arteries of extremities, left leg; E86.1 Hypovolemia; J44.9 Chronic obstructive pulmonary disease, unspecified; I10 Essential (primary) hypertension; I73.9 Peripheral vascular disease, unspecified; J98.4 Other disorders of lung; I48.0 Paroxysmal atrial fibrillation; I65.23 Occlusion and stenosis of bilateral carotid arteries; Z66 Do not resuscitate
CPT/HCPCS: 36415; 36591; 70450; 70553; 75635; 80048; 80053; 80061; 82550; 83036; 83690; 83735; 84443; 84484; 85025; 85610; 85730; 92507; 92610; 93005; 93306; 93880; 94640; 94762; 96361; 96374; 97110; 97116; 97162; 97166; 97530; 97535; 99284; 99285; J1650; J7613; Q9967

== ENCOUNTER → 2018-09-04 14:31 | Outpatient (CLI) | payer MEDICARE, OTHER, SELFPAY ==
[2018-08-23 04:59] VITALS: BMI 18.6
[2018-09-04 14:52] LABS: Add Manual Diff / Slide Review NO; Basophils Percent Auto 0.7 % (0-2); Eosinophils Percent Auto 1.8 % (2-4); Hematocrit 42.7 % (41-53); Hemoglobin 14.4 g/dL (13.5-17.5); Mean Corpuscular HGB Conc 33.8 % (30-36); Mean Corpuscular Hemoglobin 27.5 PG (26-34); Mean Corpuscular Volume 81.6 fL (80-100); Monocytes Percent Auto 9.6 % (3-14); Neutrophils Absolute Auto 6600 /uL (3000-5900); Neutrophils Percent Auto 76.9 % (50-75); Platelet Count 286 X10^3/uL (150-400); Red Blood Cell Count 5.24 X10^6/uL (4.5-5.9); Red Cell Distribution Width 15.4 % (11.6-14.8); White Blood Cell Count 8.6 X10^3/uL (4.5-11.0)
[2018-09-04 15:04] LABS: INR 2.9 (0.9-1.3); Prothrombin Time 32.2 SECONDS (10.1-12.7)
[2018-09-04 15:21] LABS: Alanine Aminotransferase 83 IU/L (21-72); Albumin 4.6 g/dL (3.5-5.0); Albumin Globulin Ratio 1.4 (1.0-2.8); Alkaline Phosphatase 123 U/L (38-126); Amylase 137 U/L (30-110); Aspartate Aminotransferase 68 IU/L (17-59); BUN Creatinine Ratio 46.7 (6-22); Bilirubin Total 0.6 mg/dL (0.2-1.3); Blood Urea Nitrogen 70 mg/dL (9-20); Calcium 10.3 mg/dL (8.4-10.2); Carbon Dioxide 20 mmol/L (22-32); Chloride 104 mmol/L (98-107); Estimated Glomerular Filt Rate 45.5 mL/min (>60); Globulin 3.3 g/dL (1.7-4.1); Glucose 123 mg/dL (80-110); HEMOLYSIS 34 (0-50); Lipase 716 U/L (23-300); Sodium 141 mmol/L (137-145); Total Protein 7.9 g/dL (6.3-8.2)
[2018-09-04 15:27] LABS: Potassium 5.8 mmol/L (3.4-5.1)
[2018-09-04 15:52] LABS: Procalcitonin < 0.05 ng/mL (<0.5)
== END ==
PROVIDERS: Visit Provider Surgery
DX: K80.50 Calculus of bile duct without cholangitis or cholecystitis without obstruction (principal); I63.9 Cerebral infarction, unspecified; K85.90 Acute pancreatitis without necrosis or infection, unspecified
CPT/HCPCS: 36415; 80053; 82150; 83690; 84145; 85025; 85610

== ENCOUNTER 2018-09-05 05:25 | Inpatient (IN) | payer MEDICARE, OTHER, SELFPAY ==
[2018-08-23 04:59] VITALS: BMI 18.6
[2018-09-05] VITALS (10 sets, daily range): BP systolic 83–122; BP diastolic 51–78; PULSE 77–100; RESP 14–20; TEMP 36.2–36.8; O2SAT 94–100; BMI 16.0
--- NOTE | 2018-09-05 06:00 | DI.RAD.S_ITS ---
PROCEDURE: XR CHEST 1V INDICATIONS: weakness, recent fall, recent cva TECHNIQUE: One view of the chest was acquired. COMPARISON: [facility], CT, CT HEAD/BRAIN WO CON, 09/05/2018, 6:00. [facility], CT, CT ANGIO ABD AORTA RUNOFF, 08/22/2018, 21:44. [facility], CR, XR CHEST 1V, 08/16/2018, 12:29. FINDINGS: Surgical changes and devices: None. Lungs and pleura: Lucencies in the lungs bilaterally are compatible with emphysematous bullae. There are bilateral chronic interstitial prominence and left apical and bilateral lower lobe scars, minimally changed from the last exam. Possible small pleural effusion. No pneumothorax. Mediastinum: Mediastinal contours appear normal. Heart size is normal. Bones and chest wall: No suspicious bony lesions. Overlying soft tissues appear unremarkable. Distended stomach. IMPRESSION: Abnormal but stable chest radiograph demonstrates severe emphysema, bilateral pulmonary scars and diffuse interstitial prominence with small left pleural effusion. Superimposed acute pneumonic process cannot be excluded. Because of the extensive chronic abnormalities on chest x-ray, CT is suggested if acute changes are present. Dictated by: Digna Clark M.D. on 09/05/2018 at 8:51 Approved by: Digna Clark M.D. on 09/05/2018 at 9:00
--- NOTE | 2018-09-05 06:00 | DI.CT.S_ITS ---
PROCEDURE: CT HEAD/BRAIN WO CON INDICATIONS: weakness, recent fall, on coumadin, recent CVA TECHNIQUE: Noncontrast 4.5 mm thick angled axial sections acquired from the foramen magnum to the vertex, with coronal and sagittal reformats. For radiation dose reduction, the following was used: automated exposure control, adjustment of mA and/or kV according to patient size. COMPARISON: [facility], MR, MR STROKE, 08/23/2018, 10:22. [facility], CT, CT HEAD/BRAIN WO CON, 08/22/2018, 21:41. FINDINGS: Image quality: Excellent. CSF spaces: Basal cisterns are patent. No extra-axial fluid collections. The ventricles are symmetric in size and shape. Brain: No intracranial bleeds or masses. There is mild cerebral volume loss for age, with resultant ventricular and sulcal prominence. There are mild periventricular and deep white matter chronic small vessel ischemic changes. Old, small, lacunar infarcts involving the anterior limb of the right internal capsule and the right frontal periventricular white matter are stable compared to the prior examination. There is intracranial internal carotid artery and vertebral artery are atherosclerosis. Skull and face: Calvarium and visualized facial bones appear intact, without suspicious lesions. Sinuses: Partially visualized, 1.9 x 2.3 cm expansile, soft tissue density is noted in the anterior wall of the right maxillary sinus. Diffuse right maxillary sinus wall thickening is noted. mastoids are clear. IMPRESSION: 1. No acute intracranial disease process. 2. Partially visualized expansile mass involving the anterior wall of the right maxillary sinus. Recommend dedicated CT scan of the sinuses for further evaluation. Dictated by: Melissa Velarde MD, PhD on 09/05/2018 at 7:27 Approved by: Melissa Velarde MD, PhD on 09/05/2018 at 7:33
--- NOTE | 2018-09-05 06:02 | ED_ITS ---
HPI - Weakness <Mia Otero DO - Last Filed: 09/06/18 03:31> General Chief complaint: Weakness Stated complaint: Weakness Time Seen by Provider: 09/05/18 05:34 Source: patient, family () and EMS Mode of arrival: EMS History of Present Illness HPI Narrative: this is a 78-year-old gentleman who comes to the emergency department complaint of increased weakness. Patient recently had a stroke, he was discharged home after also being seen for a retained gallstone in the duct. Patient had his gallbladder removed but continues to have drains on his right lower abdomen. Patient states that today he was walking the house he walked to the chair had a seat and then felt like he could not get back up out of the chair he was too weak. He states his left hand was shaking. according to his he has been in a slow decline he is not really eating anything. He denies any headaches, he denies any chest pain, he denies any shortness of breath. He has had some vision changes with double vision for a couple days. He denies any nausea or vomiting no diarrhea, constipation or new urinary symptoms. His recent stroke affected the left side with weakness. , he denies any numbness or tingling. He states that he woke up this morning with worsening weakness. He does not have a specific onset of tongue. He denies any medication changes. No fevers. No pus or purulent drainage from the catheter site. Patient saw Dr. Lamb yesterday for follow-up, Dr. Paredes is his primary care Related Data Home Medications Medication Instructions Recorded Confirmed warfarin [Coumadin] 1 mg PO BID 09/05/18 09/05/18 Previous Rx's Medication Instructions Recorded atorvastatin [Lipitor] 40 mg PO BEDTIME #30 tab 08/27/18 clopidogrel [Plavix] 75 mg PO DAILY #30 tab 08/27/18 lisinopril 20 mg PO BID #60 tab 08/27/18 metoprolol tartrate 50 mg PO BID #60 tab 08/27/18 Allergies Allergy/AdvReac Type Severity Reaction Status Date / Time diltiazem Allergy Mild Hives Verified 09/04/18 13:41 Review of Systems <DO Trisha Prado Last Filed: 09/06/18 03:31> Review of Systems All systems reviewed & are unremarkable except as noted in HPI and below Constitutional Reports anorexia, Reports chills, Denies fever(s), Denies headache(s), Reports weakness and Reports weight loss Eyes Denies blurry vision and Reports diplopia ( Sometimes) ENT Ears, Nose, Mouth, and Throat: Denies headache(s) and Denies neck pain Cardiovascular Denies chest pain, Denies diaphoresis, Denies syncope, Denies irregular heart rhythm, Denies leg edema, Denies lightheadedness, Denies palpitations, Denies dyspnea and Denies orthopnea Respiratory Denies chest congestion, Denies cough, Denies excessive phlegm production, Denies dyspnea and Denies wheezing Gastrointestinal Gastrointestinal: Denies abdominal pain, Denies melena, Denies hematochezia, Denies change in bowel habits, Denies constipation, Denies diarrhea, Denies nausea, Denies vomiting and Reports other (drain, no change, no purulent drainage) Genitourinary Denies hematuria, Denies flank pain, Denies urinary incontinence and Denies urinary urgency Musculoskeletal Denies back pain, Denies neck pain and Denies numbness Integumentary/Breasts Reports unusual bruising Neurologic Denies syncope, Denies headache(s), Denies numbness and Reports weakness Endocrine Denies palpitations Allergic/Immunologic Denies wheezing Exam <Mia Otero, DO - Last Filed: 09/06/18 03:31> Narrative Exam Narrative: GEN: Thin, elderly male, alert and oriented x 2, patient is slightly confused about dates and timeline, patient appears to be in mild distress. HEENT: Atraumatic, pupils are equal round reactive to light, extraocular movements are intact, nares are clear. Throat is clear without any exudates, erythema, tonsillar enlargement or uvular deviation, no facial droop HEART: Regular rate and rhythm without murmur, clicks, rubs. Pulses are equal in upper and lower extremities LUNGS:Lungs clear to auscultation, no wheezes, rales, crackles, chest moves symmetrically, no tachypnea or accessory muscle use ABD:bowel sounds normal, soft, non-tender, no guarding, rebound, rigidity, no masses noted, no hepatosplenomegaly. patient has 2 drains protruding from the right abdomen, the catheter site appears clean dry and intact without any signs of infection such as erythema, drainage or odor. :No CVA tenderness MSCL: Non-tender, no muscle atrophy, full range of motion NEURO:CN 2-12 intact, sensation normal, reflexes 2/4 upper and lower extremities. finger nose finger test normal on right, patient has some difficulty on the left with [id number]. Heel-hines is the same on both lower extremities. Initial Vital Signs Initial Vital Signs: Vital Signs Temperature 97.2 F L 09/05/18 05:33 Pulse Rate 90 09/05/18 05:33 Respiratory Rate 19 09/05/18 05:33 Blood Pressure 101/61 09/05/18 05:33 Pulse Oximetry 98 09/05/18 05:33 <Francisca Stein DO - Last Filed: 09/05/18 08:09> Initial Vital Signs Initial Vital Signs: Vital Signs Temperature 97.2 F L 09/05/18 05:33 Pulse Rate 90 09/05/18 05:33 Respiratory Rate 19 09/05/18 05:33 Blood Pressure 101/61 09/05/18 05:33 Pulse Oximetry 98 09/05/18 05:33 Scores <Mia Otero DO - Last Filed: 09/06/18 03:31> NIH Stroke Scale Level of Conciousness: Alert, keenly responsive Ask month/age: Answers both questions correctly. Open/close eyes, close hand: Performs both tasks correctly Best gaze horizontal: Normal Visual betancourt: No visual loss Facial palsy: Normal symetrical movement Left arm drift: No drift for full 10 sec Right arm drift: No drift for full 10 sec Left leg drift: No drift for full 10 sec Right leg drift: No drift for full 10 sec Limb ataxia: Present in two limbs (mild hand/leg.) Sensory on face/arms/legs: Normal, no sensory loss Best language: No aphasia, normal Dysarthria: Normal Extinction or inattention: No abnormality Total NIH Stroke scale score: 2 Course <Mia Otero DO - Last Filed: 09/06/18 03:31> Orders Ordered: ED Orders 09/05/18 21:23 Consult to General Surgery Routine 09/06/18 05:00 Prothrombin Time INR Routine Acetaminophen (Tylenol) 650 mg PO Q6HR PRN PRN Reason: As Needed for Fever/Mild Pain Hydrocodone Bitart/Acetaminophen ([place] 5/325) 1 tab PO Q4HR PRN PRN Reason: Pain, Moderate (4-6) Atorvastatin Calcium (Lipitor) 40 mg PO BEDTIME [facility] Last Admin: 09/05/18 20:47 Dose: Not Given Bisacodyl (Dulcolax) 10 mg SC DAILY PRN PRN Reason: Constipation Clopidogrel Bisulfate (Plavix) 75 mg PO DAILY [facility] Sodium Chloride (Normal Saline 0.9%) 1,000 mls @ 100 mls/hr IV CONT [facility] Last Admin: 09/05/18 18:28 Dose: 100 mls/hr Infusion: 09/05/18 15:00 Dose: 0 mls/hr Infusion: 09/05/18 13:40 Dose: 150 mls/hr Admin: 09/05/18 10:07 Dose: 150 mls/hr Infusion: 09/05/18 08:38 Dose: 999 mls/hr Infusion: 09/05/18 07:50 Dose: 999 mls/hr Admin: 09/05/18 06:25 Dose: 150 mls/hr Ondansetron HCl (Zofran) 4 mg IV Q8HR PRN PRN Reason: Nausea And Vomiting Warfarin Sodium (Coumadin) 3 mg PO 1700 [facility] Last Admin: 09/05/18 18:29 Dose: 3 mg Discontinued Medications Sodium Chloride (Normal Saline 0.45%) 1,000 mls @ 100 mls/hr IV CONT [facility] Last Infusion: 09/05/18 18:28 Dose: 0 mls/hr Admin: 09/05/18 13:39 Dose: 100 mls/hr Metoprolol Succinate (Toprol Xl) 50 mg PO BID [facility] Patient's Own Meds (Stored In Pharmacy) 0 each PO PRN PRN PRN Reason: . Warfarin Sodium (Coumadin) 1 mg PO 1700 [facility] Vital Signs - 8 hr 09/05/18 20:52 09/06/18 00:10 Temperature 98.0 F 97.7 F Pulse Rate 80 67 Respiratory Rate 15 16 Blood Pressure 122/56 L 145/61 H Pulse Oximetry 99 98 <Francisca Stein, - Last Filed: 09/05/18 08:09> Orders Ordered: ED Orders 09/05/18 21:23 Consult to General Surgery Routine 09/06/18 05:00 Prothrombin Time INR Routine Acetaminophen (Tylenol) 650 mg PO Q6HR PRN PRN Reason: As Needed for Fever/Mild Pain Hydrocodone Bitart/Acetaminophen ([place] 5/325) 1 tab PO Q4HR PRN PRN Reason: Pain, Moderate (4-6) Atorvastatin Calcium (Lipitor) 40 mg PO BEDTIME [facility] Last Admin: 09/05/18 20:47 Dose: Not Given Bisacodyl (Dulcolax) 10 mg SC DAILY PRN PRN Reason: Constipation Clopidogrel Bisulfate (Plavix) 75 mg PO DAILY [facility] Sodium Chloride (Normal Saline 0.9%) 1,000 mls @ 100 mls/hr IV CONT [facility] Last Admin: 09/05/18 18:28 Dose: 100 mls/hr Infusion: 09/05/18 15:00 Dose: 0 mls/hr Infusion: 09/05/18 13:40 Dose: 150 mls/hr Admin: 09/05/18 10:07 Dose: 150 mls/hr Infusion: 09/05/18 08:38 Dose: 999 mls/hr Infusion: 09/05/18 07:50 Dose: 999 mls/hr Admin: 09/05/18 06:25 Dose: 150 mls/hr Ondansetron HCl (Zofran) 4 mg IV Q8HR PRN PRN Reason: Nausea And Vomiting Warfarin Sodium (Coumadin) 3 mg PO 1700 [facility] Last Admin: 09/05/18 18:29 Dose: 3 mg Discontinued Medications Sodium Chloride (Normal Saline 0.45%) 1,000 mls @ 100 mls/hr IV CONT [facility] Last Infusion: 09/05/18 18:28 Dose: 0 mls/hr Admin: 09/05/18 13:39 Dose: 100 mls/hr Metoprolol Succinate (Toprol Xl) 50 mg PO BID [facility] Patient's Own Meds (Stored In Pharmacy) 0 each PO PRN PRN PRN Reason: . Warfarin Sodium (Coumadin) 1 mg PO 1700 [facility] Vital Signs - 8 hr 09/05/18 20:52 09/06/18 00:10 Temperature 98.0 F 97.7 F Pulse Rate 80 67 Respiratory Rate 15 16 Blood Pressure 122/56 L 145/61 H Pulse Oximetry 99 98 MDM - Weakness <Mia Otero DO - Last Filed: 09/06/18 03:31> Lab Data Result diagrams: 09/05/18 14:30 09/05/18 14:30 Lab Results 09/05/18 09/05/18 09/05/18 Range/Units 00:05 00:05 00:05 WBC 8.1 (4.5-11.0) X10^3/uL RBC 5.58 (4.5-5.9) X10^6/uL Hgb 15.2 (13.5-17.5) g/dL Hct 45.6 (41-53) % MCV 81.8 (80-100) fL MCH 27.2 (26-34) PG MCHC 33.3 (30-36) % RDW 15.2 H (11.6-14.8) % Plt Count 270 (150-400) X10^3/uL Neut % (Auto) 78.8 H (50-75) % Lymph % (Auto) 9.1 L (25-40) % [place] % (Auto) 8.9 (3-14) % Eos % (Auto) 2.4 (2-4) % Baso % (Auto) 0.8 (0-2) % Neut # (Auto) 6400 H (7228-6254) /uL PT 27.8 H (10.1-12.7) SECONDS INR 2.5 H (0.9-1.3) APTT 44 H D (26.4-36.2) SECONDS Sodium 142 (137-145) mmol/L Potassium 4.7 (3.4-5.1) mmol/L Chloride 104 (98-107) mmol/L Carbon Dioxide 18 L (22-32) mmol/L BUN 80 H (9-20) mg/dL Creatinine 1.80 H (0.66-1.25) mg/dL Estimated GFR 36.9 L (>60) mL/min BUN/Creatinine Ratio 44.4 H (6-22) Glucose 129 H (80-110) mg/dL Lactate (0.7-2.1) mmol/L Calcium 10.3 H (8.4-10.2) mg/dL Total Bilirubin 0.7 (0.2-1.3) mg/dL AST 78 H (17-59) IU/L ALT 97 H (21-72) IU/L Alkaline Phosphatase 150 H (38-126) U/L Troponin I 0.026 (0.01-0.034) ng/mL B-Natriuretic Peptide (<100) Total Protein 8.7 H (6.3-8.2) g/dL Albumin 4.9 (3.5-5.0) g/dL Globulin 3.8 (1.7-4.1) g/dL Albumin/Globulin Ratio 1.3 (1.0-2.8) Lipase (23-300) U/L 09/05/18 09/05/18 09/05/18 Range/Units 00:05 06:10 06:10 WBC (4.5-11.0) X10^3/uL RBC (4.5-5.9) X10^6/uL Hgb (13.5-17.5) g/dL Hct (41-53) % MCV (80-100) fL MCH (26-34) PG MCHC (30-36) % RDW (11.6-14.8) % Plt Count (150-400) X10^3/uL Neut % (Auto) (50-75) % Lymph % (Auto) (25-40) % [place] % (Auto) (3-14) % Eos % (Auto) (2-4) % Baso % (Auto) (0-2) % Neut # (Auto) (6735-8766) /uL PT (10.1-12.7) SECONDS INR (0.9-1.3) APTT (26.4-36.2) SECONDS Sodium (137-145) mmol/L Potassium (3.4-5.1) mmol/L Chloride (98-107) mmol/L Carbon Dioxide (22-32) mmol/L BUN (9-20) mg/dL Creatinine (0.66-1.25) mg/dL Estimated GFR (>60) mL/min BUN/Creatinine Ratio (6-22) Glucose (80-110) mg/dL Lactate 1.3 (0.7-2.1) mmol/L Calcium (8.4-10.2) mg/dL Total Bilirubin (0.2-1.3) mg/dL AST (17-59) IU/L ALT (21-72) IU/L Alkaline Phosphatase (38-126) U/L Troponin I (0.01-0.034) ng/mL B-Natriuretic Peptide 39.0 (<100) Total Protein (6.3-8.2) g/dL Albumin (3.5-5.0) g/dL Globulin (1.7-4.1) g/dL Albumin/Globulin Ratio (1.0-2.8) Lipase 801 H (23-300) U/L 09/05/18 09/05/18 Range/Units 14:30 14:30 WBC 5.9 (4.5-11.0) X10^3/uL RBC 4.84 (4.5-5.9) X10^6/uL Hgb 12.9 L (13.5-17.5) g/dL Hct 39.7 L (41-53) % MCV 82.1 (80-100) fL MCH 26.7 (26-34) PG MCHC 32.5 (30-36) % RDW 14.9 H (11.6-14.8) % Plt Count 202 (150-400) X10^3/uL Neut % (Auto) 76.2 H (50-75) % Lymph % (Auto) 13.6 L (25-40) % [place] % (Auto) 7.9 (3-14) % Eos % (Auto) 1.7 L (2-4) % Baso % (Auto) 0.6 (0-2) % Neut # (Auto) 4500 (3975-4430) /uL PT (10.1-12.7) SECONDS INR (0.9-1.3) APTT (26.4-36.2) SECONDS Sodium 142 (137-145) mmol/L Potassium 4.2 (3.4-5.1) mmol/L Chloride 110 H (98-107) mmol/L Carbon Dioxide 19 L (22-32) mmol/L BUN 74 H (9-20) mg/dL Creatinine 1.30 H (0.66-1.25) mg/dL Estimated GFR 53.7 L (>60) mL/min BUN/Creatinine Ratio 56.9 H (6-22) Glucose 131 H (80-110) mg/dL Lactate (0.7-2.1) mmol/L Calcium 8.8 (8.4-10.2) mg/dL Total Bilirubin (0.2-1.3) mg/dL AST (17-59) IU/L ALT (21-72) IU/L Alkaline Phosphatase (38-126) U/L Troponin I (0.01-0.034) ng/mL B-Natriuretic Peptide (<100) Total Protein (6.3-8.2) g/dL Albumin (3.5-5.0) g/dL Globulin (1.7-4.1) g/dL Albumin/Globulin Ratio (1.0-2.8) Lipase (23-300) U/L Imaging Data Chest x-ray: Attestation: I personally reviewed and interpreted this imaging study as follows: My impression: appears similar to prior from july, pleural effusions, emphysematous changesj, mediastinum/cardiac silhouette appear similar. ECG Data Attestation: I personally reviewed and interpreted this ECG as follows: Prior ECG tracings: available for review Interpretation: Sinus rhythm with PVCs, rate in 91 P are 151 QRS 96 and QTC of 390. left anterior fascicular block. No ST elevation. Patient has prior EKG from 08/22/2018 it also has quite a few PVCs which make it a little difficult to interpret in the lateral leads there is any ST changes but the EKG actually appears pretty similar to his prior on the majority of leads. MDM Narrative Medical decision making narrative: patient has multiple potential causes of his weakness. He could have infection with his recent surgery and catheter site. He could have had a recurrent stroke although his NIH scale Um he does remarkably well and his states he is pretty at baseline for that. He also not been eating is quite thin could be tensely a source as well. He also had a fall recently and is on Coumadin. It was not witnessed he told his he states that he crawled to the next room because he could not get back up. Patient's labs appear fairly consistent with prior's. Renal function is decreased to 1.8, CBC does not show an acute anemia or infection, lipase is drifting upwards, alk phos elevated. INR is therapeutic, lactate in normal range. Troponin, bnp and procalcitonin are all within normal ranges. CXR also appears stable, head CT is pending, urine is pending. Patient was signed out for final disposition by Dr. Stein but discussed likely will plan for admission or observation in the hospital. Patient increasingly weak and while in hospital was on tpa. He has significant disease burden from several causes. <Francisca Sarita, DO - Last Filed: 09/05/18 08:09> Lab Data Attestation: I reviewed the patient's lab results. Lab Results 09/05/18 09/05/18 09/05/18 Range/Units 00:05 00:05 00:05 WBC 8.1 (4.5-11.0) X10^3/uL RBC 5.58 (4.5-5.9) X10^6/uL Hgb 15.2 (13.5-17.5) g/dL Hct 45.6 (41-53) % MCV 81.8 (80-100) fL MCH 27.2 (26-34) PG MCHC 33.3 (30-36) % RDW 15.2 H (11.6-14.8) % Plt Count 270 (150-400) X10^3/uL Neut % (Auto) 78.8 H (50-75) % Lymph % (Auto) 9.1 L (25-40) % [place] % (Auto) 8.9 (3-14) % Eos % (Auto) 2.4 (2-4) % Baso % (Auto) 0.8 (0-2) % Neut # (Auto) 6400 H (8823-4949) /uL PT 27.8 H (10.1-12.7) SECONDS INR 2.5 H (0.9-1.3) APTT 44 H D (26.4-36.2) SECONDS Sodium 142 (137-145) mmol/L Potassium 4.7 (3.4-5.1) mmol/L Chloride 104 (98-107) mmol/L Carbon Dioxide 18 L (22-32) mmol/L BUN 80 H (9-20) mg/dL Creatinine 1.80 H (0.66-1.25) mg/dL Estimated GFR 36.9 L (>60) mL/min BUN/Creatinine Ratio 44.4 H (6-22) Glucose 129 H (80-110) mg/dL Lactate (0.7-2.1) mmol/L Calcium 10.3 H (8.4-10.2) mg/dL Total Bilirubin 0.7 (0.2-1.3) mg/dL AST 78 H (17-59) IU/L ALT 97 H (21-72) IU/L Alkaline Phosphatase 150 H (38-126) U/L Troponin I 0.026 (0.01-0.034) ng/mL B-Natriuretic Peptide (<100) Total Protein 8.7 H (6.3-8.2) g/dL Albumin 4.9 (3.5-5.0) g/dL Globulin 3.8 (1.7-4.1) g/dL Albumin/Globulin Ratio 1.3 (1.0-2.8) Lipase (23-300) U/L 09/05/18 09/05/18 09/05/18 Range/Units 00:05 06:10 06:10 WBC (4.5-11.0) X10^3/uL RBC (4.5-5.9) X10^6/uL Hgb (13.5-17.5) g/dL Hct (41-53) % MCV (80-100) fL MCH (26-34) PG MCHC (30-36) % RDW (11.6-14.8) % Plt Count (150-400) X10^3/uL Neut % (Auto) (50-75) % Lymph % (Auto) (25-40) % [place] % (Auto) (3-14) % Eos % (Auto) (2-4) % Baso % (Auto) (0-2) % Neut # (Auto) (6424-1800) /uL PT (10.1-12.7) SECONDS INR (0.9-1.3) APTT (26.4-36.2) SECONDS Sodium (137-145) mmol/L Potassium (3.4-5.1) mmol/L Chloride (98-107) mmol/L Carbon Dioxide (22-32) mmol/L BUN (9-20) mg/dL Creatinine (0.66-1.25) mg/dL Estimated GFR (>60) mL/min BUN/Creatinine Ratio (6-22) Glucose (80-110) mg/dL Lactate 1.3 (0.7-2.1) mmol/L Calcium (8.4-10.2) mg/dL Total Bilirubin (0.2-1.3) mg/dL AST (17-59) IU/L ALT (21-72) IU/L Alkaline Phosphatase (38-126) U/L Troponin I (0.01-0.034) ng/mL B-Natriuretic Peptide 39.0 (<100) Total Protein (6.3-8.2) g/dL Albumin (3.5-5.0) g/dL Globulin (1.7-4.1) g/dL Albumin/Globulin Ratio (1.0-2.8) Lipase 801 H (23-300) U/L 09/05/18 09/05/18 Range/Units 14:30 14:30 WBC 5.9 (4.5-11.0) X10^3/uL RBC 4.84 (4.5-5.9) X10^6/uL Hgb 12.9 L (13.5-17.5) g/dL Hct 39.7 L (41-53) % MCV 82.1 (80-100) fL MCH 26.7 (26-34) PG MCHC 32.5 (30-36) % RDW 14.9 H (11.6-14.8) % Plt Count 202 (150-400) X10^3/uL Neut % (Auto) 76.2 H (50-75) % Lymph % (Auto) 13.6 L (25-40) % [place] % (Auto) 7.9 (3-14) % Eos % (Auto) 1.7 L (2-4) % Baso % (Auto) 0.6 (0-2) % Neut # (Auto) 4500 (7477-8262) /uL PT (10.1-12.7) SECONDS INR (0.9-1.3) APTT (26.4-36.2) SECONDS Sodium 142 (137-145) mmol/L Potassium 4.2 (3.4-5.1) mmol/L Chloride 110 H (98-107) mmol/L Carbon Dioxide 19 L (22-32) mmol/L BUN 74 H (9-20) mg/dL Creatinine 1.30 H (0.66-1.25) mg/dL Estimated GFR 53.7 L (>60) mL/min BUN/Creatinine Ratio 56.9 H (6-22) Glucose 131 H (80-110) mg/dL Lactate (0.7-2.1) mmol/L Calcium 8.8 (8.4-10.2) mg/dL Total Bilirubin (0.2-1.3) mg/dL AST (17-59) IU/L ALT (21-72) IU/L Alkaline Phosphatase (38-126) U/L Troponin I (0.01-0.034) ng/mL B-Natriuretic Peptide (<100) Total Protein (6.3-8.2) g/dL Albumin (3.5-5.0) g/dL Globulin (1.7-4.1) g/dL Albumin/Globulin Ratio (1.0-2.8) Lipase (23-300) U/L Imaging Data CT scan - head: Radiologist's impression: 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 Subcentimeter old lacunar infarction anterior limb internal capsule on the right. Stable compared to prior study. No acute intracranial process is identified. Mild to moderate age -related atrophic change. [id number] age-related ischemic demyelination white matter. Possible old traumatic changes right maxillary sinus. Rounded low attenuation in the right maxillary sinus may represent because retention cyst or polyp. This anatomy would is not included in the prior study. MDM Narrative Medical decision making narrative: Patient signed out to me by night provider. Patient has had progressive weakness. Labs have been reviewed BUN creatinine are significantly elevated from 08/27/2018. And they are more elevated than yesterday. Yesterday at a routine follow-up with Dr. Lamb for his of cholecystectomy. I have spoken with who states that he is not eating or drinking and refuses to. He is continuing to have weakness. He states that he did urinate at 4:00 a.m. we have been trying to encourage him he urinated again however he does not feel that he is able to. His blood pressure is on the lower and the lowest it has been with a systolic of 83 staying around the low 100s. Dr. Abbott has been updated on patient's symptoms and test results. Agrees with inpatient. Discharge Plan Departure Patient Disposition: Admitted As Inpatient Clinical Impression: Acute kidney injury, Weakness, Acute dehydration Discharge Date/Time: 09/05/18 08:44 Interventions: ED Discharge Assessment Last Done: 09/05/18 08:37 Admit Date/Time: 09/05/18 08:04 Admit Provider: Lorenza Abbott
[2018-09-05 06:22] LABS: Add Manual Diff / Slide Review NO; Basophils Percent Auto 0.8 % (0-2); Eosinophils Percent Auto 2.4 % (2-4); Hematocrit 45.6 % (41-53); Hemoglobin 15.2 g/dL (13.5-17.5); Lymphocytes Percent Auto 9.1 % (25-40); Mean Corpuscular HGB Conc 33.3 % (30-36); Mean Corpuscular Hemoglobin 27.2 PG (26-34); Mean Corpuscular Volume 81.8 fL (80-100); Monocytes Percent Auto 8.9 % (3-14); Neutrophils Absolute Auto 6400 /uL (3000-5900); Neutrophils Percent Auto 78.8 % (50-75); Platelet Count 270 X10^3/uL (150-400); Red Blood Cell Count 5.58 X10^6/uL (4.5-5.9); Red Cell Distribution Width 15.2 % (11.6-14.8); White Blood Cell Count 8.1 X10^3/uL (4.5-11.0)
[2018-09-05] MEDS: SODIUM CHLORIDE 0.9% 1,000 ML 150 ML IV ×2 (06:25→10:07)
[2018-09-05 06:31] LABS: INR 2.5 (0.9-1.3); Prothrombin Time 27.8 SECONDS (10.1-12.7)
[2018-09-05 06:34] LABS: PTT Partial Thromboplastin Tim 44 SECONDS (26.4-36.2)
[2018-09-05 06:35] LABS: Lactate (Lactic Acid) 1.3 mmol/L (0.7-2.1)
[2018-09-05 06:36] LABS: Alanine Aminotransferase 97 IU/L (21-72); Albumin 4.9 g/dL (3.5-5.0); Albumin Globulin Ratio 1.3 (1.0-2.8); Alkaline Phosphatase 150 U/L (38-126); Aspartate Aminotransferase 78 IU/L (17-59); BUN Creatinine Ratio 44.4 (6-22); Bilirubin Total 0.7 mg/dL (0.2-1.3); Blood Urea Nitrogen 80 mg/dL (9-20); Calcium 10.3 mg/dL (8.4-10.2); Carbon Dioxide 18 mmol/L (22-32); Chloride 104 mmol/L (98-107); Estimated Glomerular Filt Rate 36.9 mL/min (>60); Globulin 3.8 g/dL (1.7-4.1); Glucose 129 mg/dL (80-110); HEMOLYSIS < 15 (0-50); Potassium 4.7 mmol/L (3.4-5.1); Sodium 142 mmol/L (137-145); Total Protein 8.7 g/dL (6.3-8.2)
[2018-09-05 06:43] LABS: Lipase 801 U/L (23-300)
[2018-09-05 06:47] LABS: Troponin I 0.026 ng/mL (0.01-0.034)
--- NOTE | 2018-09-05 07:43 | PC.NURSE ---
per dr dale, 500ml bolas ns to treat hypotension.
--- NOTE | 2018-09-05 10:39 | PC.NURSE ---
Day shift Pt arrived from ER via stretcher at 0850 slide board transfer to bed. pt was able to assist some with bed mobility but not much reports he has been having increased weakness and falls at home. Pt is A&O but forgetful about days and recent events. IV fluids infusing per order. Pt reports he has not been eating or drinking much at home and that he just feels like he is going to fall every time he stands up. Oriented to room and call light. Denies chest pain, SOB and h/a. oxygen sats 98%RA. home medications sent to pharmacy. Oriented to room and call light. Pt has KENDRA and T-tube drain to right lower quadrant dressing intact and sites of insertion have slight redness, no drainage. Call light within reach and bed alarm for safety.
[2018-09-05] MEDS: SODIUM CHLORIDE 0.45% 1,000 ML 100 ML IV (13:39)
--- NOTE | 2018-09-05 13:49 | PT.IIE ---
Surgical History (Last Reviewed 09/05/18 @ 06:16 by Mia Otero DO) H/O inguinal hernia repair (Resolved) Medical History (Last Reviewed 08/23/18 @ 04:21 by DENISSE Camarena) Chronic cough (Chronic) Inguinal hernia (Chronic) Reducible right inguinal hernia (Chronic) Vocal cord polyps (Resolved) Physical Therapy Inpatient Evaluation/Re-Eval M1 PT/OT-IP Prior Functional Status Start: 09/05/18 14:29 Freq: NEEDED Status: Active Protocol: Document 09/05/18 13:49 (Rec: 09/05/18 14:46 [id number]) Medical Review Prior Functional Status Medical History Reviewed Yes Communication no deficits noted. Mobility and Gait Pt states previous ambulation was modified independent with 4ww ~90% of the time, fww ~10% . Ambulation distances are ~ 70 ft. Pt independent with showering, toileting. Pt drives. He doesn't go up/down stairs. Prior Functional Level (Other details) Reports 2 falls in the last wk . His L side feels very weak and trembles before L leg gives out underneath him. Social History Household Members spouse Living Arrangements House Number of Floors (Floors) One Floor Number of Stairs To Enter/Railing? Ramp to enter Home Environment Standard Height Toilet Tub/Shower Home Equipment Front Wheel Walker Four Wheel Walker Shower Seat without Backrest Hand Held Shower Grab Bars Near Toilet Grab Bars In Shower Employment Status Retired Additional Social History Comment Pt lives at home with . M2 PT-IP Current Condition Start: 09/05/18 14:29 Freq: NEEDED Status: Active Protocol: Document 09/05/18 13:49 (Rec: 09/05/18 14:46 [id number]) Physical Therapy Current Condition Current Condition Evaluation Date 09/05/18 Treatment Diagnosis Generalized weakness Onset Date 09/05/18 Precautions Lumbar Precautions Log Roll No Twisting Limit Bending Lifting Restriction of 10 lbs Gait Belt above Incisional Area Other Precautions drain, T-tube M3 PT-IP Subjective Start: 09/05/18 14:29 Freq: NEEDED Status: Active Protocol: Document 09/05/18 13:49 (Rec: 09/05/18 14:46 [id number]) Subjective Physical Therapy Visit Type Type Initial Evaluation Visit Start Time 13:49 Visit Stop Time 14:24 Total Visit Minutes 35 Number of ADMINISTRATIVE RESIDENT Visits 0 Physical Therapy Visit Comments Patient Comments Pt agreeable to attempt mobility with PT. Patient Goals Pt planning on returning home at d/c. Therapy Pain Assessment Pain Present Pain Present Pain Reported Location Sacrum Scale Used Not rated. Pt states pain is low Pain Management Techniques Modification of Treatment Re-positioning Timing of Activity with Medications M4 PT-IP Mobility and Gait Start: 09/05/18 14:29 Freq: NEEDED Status: Active Protocol: Document 09/05/18 13:49 (Rec: 09/05/18 14:46 [id number]) PT-Bed Mobility Assessment Supine to Sit Supine to Sit Standby Assistance Head of Bed Elevated Sit to Supine Sit to Supine Standby Assistance Head of Bed Elevated Scooting Scooting Up and Down in Bed Maximum Assistance PT-Transfer Assessment Comments Mobility Comments Resting BP/HOB elevated 100/62 . Pt performs supine <> sit with HOB elevated SBA and BUE use on bedrails. He declines to attempt mobilizing to EOB at this point stating, he just feels too weak. Agreed to do exercises in bed. M5 PT-IP Objective Assessments Start: 09/05/18 14:29 Freq: NEEDED Status: Active Protocol: Document 09/05/18 13:49 (Rec: 09/05/18 14:46 [id number]) Orientation Orientation/Cognition Level of Alertness Alert Orientation Name Age Birthday Month Date Year Day of Week Place Situation Safety Awareness Decreased Safety Awareness Gross Range of Motion Lower Extremity ROM Assessment Within Functional Limits Strength Lower Extremity Strength Assessment Bilaterally Impaired Comments Strength Comments BLE 4/5 grossly. M6 PT-IP Treatment Start: 09/05/18 14:29 Freq: NEEDED Status: Active Protocol: Document 09/05/18 13:49 (Rec: 09/05/18 14:46 [id number]) Physical Therapy Treatment Exercises Exercises Ankle Pumps Gluteal Sets Straight Leg Raises Short Arc Quads Education Education Provided Safety Equipment Issued Equipment Type and Company Pt educated in need for mobility including ambulatoin to maintain strength. Exercises performed this session: Ankle pumps X20, Straight leg raises X10 5 sec hold, Short arc quad sets X5 5 sec hold, Supine bridges X5 5sec hold. M7 PT-IP Assessment and Plan Start: 09/05/18 14:29 Freq: NEEDED Status: Active Protocol: Document 09/05/18 13:49 (Rec: 09/05/18 14:46 [id number]) PT Summary Assessment and Plan Potential Rehabilitation Potential Fair Status of Condition at Evaluation Evolving Summary Impairments Pain ROM Strength Balance Bed Mobility Transfers Gait Activity Tolerance Progress Towards Goals Slow Progress due to Pain Slow Progress due to Medical Issues Slow Progress due to Activity Tolerance Assessment Summary Pt with generalized weakness. He was able to complete supine <> sit with HOB elevated SBA with BUE use on bed rails, and tolerated sitting up in bed for < 2 mins . before stating he was just too weak and tired to continue with PT. He was educated in need for mobility to maintain and build strength and he understood. PT needs to complete assessment of his mobility before recommendations can be made. Recommendation at this time is home with 24/7 assist and HH vs. SNF pending complete assessment of pt mobilties. Goals Bed Mobility Goal Standby Assistance Transfer Goal Standby Assistance Front Wheeled Walker Gait Goal Standby Assistance Front Wheel Walker Gait Distance 70 Days to Meet Goals 5 Frequency of Treatment Frequency Of Treatment Once a Day Treatment Plan Physical Therapy Treatment Plan Bed Mobility Training Transfer Training Gait Training Therapeutic Exercise Balance Retraining Discharge Planning Hot or Cold Pack Neuromuscular Re-ed Coordination Retraining Manual Therapy Recommendations To Nursing Amount of Assist Needed 2 Person Assist Discharge Recommendations PT Discharge Recommendations Home with 24/7 Assist Home Health SNF Rehab Other Discharge Recommendations Home with 24/7 assist and HH vs. SNF.
--- NOTE | 2018-09-05 13:49 | PT.IIE ---
Addendum entered and electronically signed by Cheyenne Frederick, PT 09/05/18 15:01: I directly supervised and guided this session. R Shazia Frederick, DPT Original Note: Surgical History (Last Reviewed 09/05/18 @ 06:16 by Mia Otero DO) H/O inguinal hernia repair (Resolved) Medical History (Last Reviewed 08/23/18 @ 04:21 by DENISSE Camarena) Chronic cough (Chronic) Inguinal hernia (Chronic) Reducible right inguinal hernia (Chronic) Vocal cord polyps (Resolved) Physical Therapy Inpatient Evaluation/Re-Eval M1 PT/OT-IP Prior Functional Status Start: 09/05/18 14:29 Freq: NEEDED Status: Active Protocol: Document 09/05/18 13:49 (Rec: 09/05/18 14:46 [id number]) Medical Review Prior Functional Status Medical History Reviewed Yes Communication no deficits noted. Mobility and Gait Pt states previous ambulation was modified independent with 4ww ~90% of the time, fww ~10% . Ambulation distances are ~ 70 ft. Pt independent with showering, toileting. Pt drives. He doesn't go up/down stairs. Prior Functional Level (Other details) Reports 2 falls in the last wk . His L side feels very weak and trembles before L leg gives out underneath him. Social History Household Members spouse Living Arrangements House Number of Floors (Floors) One Floor Number of Stairs To Enter/Railing? Ramp to enter Home Environment Standard Height Toilet Tub/Shower Home Equipment Front Wheel Walker Four Wheel Walker Shower Seat without Backrest Hand Held Shower Grab Bars Near Toilet Grab Bars In Shower Employment Status Retired Additional Social History Comment Pt lives at home with . M2 PT-IP Current Condition Start: 09/05/18 14:29 Freq: NEEDED Status: Active Protocol: Document 09/05/18 13:49 (Rec: 09/05/18 14:46 [id number]) Physical Therapy Current Condition Current Condition Evaluation Date 09/05/18 Treatment Diagnosis Generalized weakness Onset Date 09/05/18 Precautions Lumbar Precautions Log Roll No Twisting Limit Bending Lifting Restriction of 10 lbs Gait Belt above Incisional Area Other Precautions drain, T-tube M3 PT-IP Subjective Start: 09/05/18 14:29 Freq: NEEDED Status: Active Protocol: Document 09/05/18 13:49 (Rec: 09/05/18 14:46 [id number]) Subjective Physical Therapy Visit Type Type Initial Evaluation Visit Start Time 13:49 Visit Stop Time 14:24 Total Visit Minutes 35 Number of EQUIPMENT MAINTENANCE TECHNICIAN Visits 0 Physical Therapy Visit Comments Patient Comments Pt agreeable to attempt mobility with PT. Patient Goals Pt planning on returning home at d/c. Therapy Pain Assessment Pain Present Pain Present Pain Reported Location Sacrum Scale Used Not rated. Pt states pain is low Pain Management Techniques Modification of Treatment Re-positioning Timing of Activity with Medications M4 PT-IP Mobility and Gait Start: 09/05/18 14:29 Freq: NEEDED Status: Active Protocol: Document 09/05/18 13:49 (Rec: 09/05/18 14:46 [id number]) PT-Bed Mobility Assessment Supine to Sit Supine to Sit Standby Assistance Head of Bed Elevated Sit to Supine Sit to Supine Standby Assistance Head of Bed Elevated Scooting Scooting Up and Down in Bed Maximum Assistance PT-Transfer Assessment Comments Mobility Comments Resting BP/HOB elevated 100/62 . Pt performs supine <> sit with HOB elevated SBA and BUE use on bedrails. He declines to attempt mobilizing to EOB at this point stating, he just feels too weak. Agreed to do exercises in bed. M5 PT-IP Objective Assessments Start: 09/05/18 14:29 Freq: NEEDED Status: Active Protocol: Document 09/05/18 13:49 (Rec: 09/05/18 14:46 [id number]) Orientation Orientation/Cognition Level of Alertness Alert Orientation Name Age Birthday Month Date Year Day of Week Place Situation Safety Awareness Decreased Safety Awareness Gross Range of Motion Lower Extremity ROM Assessment Within Functional Limits Strength Lower Extremity Strength Assessment Bilaterally Impaired Comments Strength Comments BLE 4/5 grossly. M6 PT-IP Treatment Start: 09/05/18 14:29 Freq: NEEDED Status: Active Protocol: Document 09/05/18 13:49 (Rec: 09/05/18 14:46 [id number]) Physical Therapy Treatment Exercises Exercises Ankle Pumps Gluteal Sets Straight Leg Raises Short Arc Quads Education Education Provided Safety Equipment Issued Equipment Type and Company Pt educated in need for mobility including ambulatoin to maintain strength. Exercises performed this session: Ankle pumps X20, Straight leg raises X10 5 sec hold, Short arc quad sets X5 5 sec hold, Supine bridges X5 5sec hold. M7 PT-IP Assessment and Plan Start: 09/05/18 14:29 Freq: NEEDED Status: Active Protocol: Document 09/05/18 13:49 (Rec: 09/05/18 14:46 [id number]) PT Summary Assessment and Plan Potential Rehabilitation Potential Fair Status of Condition at Evaluation Evolving Summary Impairments Pain ROM Strength Balance Bed Mobility Transfers Gait Activity Tolerance Progress Towards Goals Slow Progress due to Pain Slow Progress due to Medical Issues Slow Progress due to Activity Tolerance Assessment Summary Pt with generalized weakness. He was able to complete supine <> sit with HOB elevated SBA with BUE use on bed rails, and tolerated sitting up in bed for < 2 mins . before stating he was just too weak and tired to continue with PT. He was educated in need for mobility to maintain and build strength and he understood. At this time PT recommendation for discharge is for SNF due to pt's severely decreased activity tolerances and need for assist . Goals Bed Mobility Goal Standby Assistance Transfer Goal Standby Assistance Front Wheeled Walker Gait Goal Standby Assistance Front Wheel Walker Gait Distance 70 Days to Meet Goals 5 Frequency of Treatment Frequency Of Treatment Once a Day Treatment Plan Physical Therapy Treatment Plan Bed Mobility Training Transfer Training Gait Training Therapeutic Exercise Balance Retraining Discharge Planning Hot or Cold Pack Neuromuscular Re-ed Coordination Retraining Manual Therapy Recommendations To Nursing Amount of Assist Needed 2 Person Assist Discharge Recommendations PT Discharge Recommendations SNF Rehab
[2018-09-05 14:51] LABS: Add Manual Diff / Slide Review NO; Basophils Percent Auto 0.6 % (0-2); Eosinophils Percent Auto 1.7 % (2-4); Hematocrit 39.7 % (41-53); Hemoglobin 12.9 g/dL (13.5-17.5); Lymphocytes Percent Auto 13.6 % (25-40); Mean Corpuscular HGB Conc 32.5 % (30-36); Mean Corpuscular Hemoglobin 26.7 PG (26-34); Mean Corpuscular Volume 82.1 fL (80-100); Monocytes Percent Auto 7.9 % (3-14); Neutrophils Absolute Auto 4500 /uL (3000-5900); Neutrophils Percent Auto 76.2 % (50-75); Platelet Count 202 X10^3/uL (150-400); Red Blood Cell Count 4.84 X10^6/uL (4.5-5.9); Red Cell Distribution Width 14.9 % (11.6-14.8); White Blood Cell Count 5.9 X10^3/uL (4.5-11.0)
[2018-09-05 15:20] LABS: BUN Creatinine Ratio 56.9 (6-22); Blood Urea Nitrogen 74 mg/dL (9-20); Calcium 8.8 mg/dL (8.4-10.2); Carbon Dioxide 19 mmol/L (22-32); Chloride 110 mmol/L (98-107); Estimated Glomerular Filt Rate 53.7 mL/min (>60); Glucose 131 mg/dL (80-110); HEMOLYSIS < 15 (0-50); Potassium 4.2 mmol/L (3.4-5.1); Sodium 142 mmol/L (137-145)
--- NOTE | 2018-09-05 17:07 | P.HP_ITS ---
History of Present Illness Date Patient Seen: 09/05/18 Chief complaint: Weakness Narrative: Patient is a 78 y/o male with several recent hospitalizations for CBD stone, with cholecystomy tube, Recent Stroke, Weight Loss. Patient was home when he felt shaky and thought he was having another stroke. He has weakenss of the right leg and became very weak when walking. He has been unable to eat and reports a 45 pound weight loss over the last month. The patient was encouraged to go to the SNF for rehab following his stay which he declined. The patient has been offered peg tube placement for nourishment which he declined previously as well. He was dizzy, weak, unable to eat as the food tastes bad. He has no appetite. patient was found to be dehydrated with acute renal failure and admitted to the hospital for further evaluation. Patient History Medical History Chronic cough (Chronic) Inguinal hernia (Chronic) Reducible right inguinal hernia (Chronic) Vocal cord polyps (Resolved) Surgical History H/O inguinal hernia repair (Resolved) Family & Social History Family History: Reviewed 09/05/18 by Lorenza Abbott MD Social History: household members spouse Prior Living Arrangements House Safety & Behavioral: Feels Safe in Current Yes Environment Been Physically Hurt or No Threatened By a Person Suicidal Ideation Description None Suicide Plan Description No Plan Tobacco & Substance use: Tobacco type cigarettes Smoking Status Current every day smoker alcohol intake former alcohol intake frequency 0-2 drinks per day Substance Use Type does not use Meds Home Medications Medication Instructions Recorded Confirmed Type atorvastatin [Lipitor] 40 mg PO BEDTIME #30 tab 08/27/18 09/05/18 Rx clopidogrel [Plavix] 75 mg PO DAILY #30 tab 08/27/18 09/05/18 Rx lisinopril 20 mg PO BID #60 tab 08/27/18 09/05/18 Rx metoprolol tartrate 50 mg PO BID #60 tab 08/27/18 09/05/18 Rx warfarin [Coumadin] 1 mg PO BID 09/05/18 09/05/18 History Allergies Allergy/AdvReac Type Severity Reaction Status Date / Time diltiazem Allergy Mild Hives Verified 09/04/18 13:41 Review of Systems Review of Systems All systems reviewed & are unremarkable except as noted in HPI and below Exam Vital Signs (past 8 hours): - 09/05/18 12:19 09/05/18 15:59 Temperature 97.9 F 97.6 F Pulse Rate 99 H 86 Respiratory Rate 16 18 Blood Pressure 122/71 Pulse Oximetry 98 94 Oxygen Delivery Method Room Air Oxygen Flow Rate 0 Narrative Exam Narrative: Emaciated, ill appearing male with bitemporal wasting HEENT: NC/AT, EOMI, Oropharyx is clear Neck is supple Lungs: clear to auscultation CV: RRR nl Sl S2 Abd: soft/ non tender/ non distended Ext: no edema Back: emaciated Neuro: non focal Objective Labs Result Diagrams: 09/05/18 14:30 09/05/18 14:30 Labs: Laboratory Results - last 24 hr 09/05/18 09/05/18 09/05/18 00:05 00:05 00:05 WBC 8.1 RBC 5.58 Hgb 15.2 Hct 45.6 MCV 81.8 MCH 27.2 MCHC 33.3 RDW 15.2 H Plt Count 270 Neut % (Auto) 78.8 H Lymph % (Auto) 9.1 L [place] % (Auto) 8.9 Eos % (Auto) 2.4 Baso % (Auto) 0.8 Neut # (Auto) 6400 H PT 27.8 H INR 2.5 H APTT 44 H D Sodium 142 Potassium 4.7 Chloride 104 Carbon Dioxide 18 L BUN 80 H Creatinine 1.80 H Estimated GFR 36.9 L BUN/Creatinine Ratio 44.4 H Glucose 129 H Lactate Calcium 10.3 H Total Bilirubin 0.7 AST 78 H ALT 97 H Alkaline Phosphatase 150 H Troponin I 0.026 B-Natriuretic Peptide Total Protein 8.7 H Albumin 4.9 Globulin 3.8 Albumin/Globulin Ratio 1.3 Lipase 09/05/18 09/05/18 09/05/18 00:05 06:10 06:10 WBC RBC Hgb Hct MCV MCH MCHC RDW Plt Count Neut % (Auto) Lymph % (Auto) [place] % (Auto) Eos % (Auto) Baso % (Auto) Neut # (Auto) PT INR APTT Sodium Potassium Chloride Carbon Dioxide BUN Creatinine Estimated GFR BUN/Creatinine Ratio Glucose Lactate 1.3 Calcium Total Bilirubin AST ALT Alkaline Phosphatase Troponin I B-Natriuretic Peptide 39.0 Total Protein Albumin Globulin Albumin/Globulin Ratio Lipase 801 H 09/05/18 09/05/18 14:30 14:30 WBC 5.9 RBC 4.84 Hgb 12.9 L Hct 39.7 L MCV 82.1 MCH 26.7 MCHC 32.5 RDW 14.9 H Plt Count 202 Neut % (Auto) 76.2 H Lymph % (Auto) 13.6 L [place] % (Auto) 7.9 Eos % (Auto) 1.7 L Baso % (Auto) 0.6 Neut # (Auto) 4500 PT INR APTT Sodium 142 Potassium 4.2 Chloride 110 H Carbon Dioxide 19 L BUN 74 H Creatinine 1.30 H Estimated GFR 53.7 L BUN/Creatinine Ratio 56.9 H Glucose 131 H Lactate Calcium 8.8 Total Bilirubin AST ALT Alkaline Phosphatase Troponin I B-Natriuretic Peptide Total Protein Albumin Globulin Albumin/Globulin Ratio Lipase Assessment & Plan (1) Weakness: Problem details: Likely secondary to dehydration and poor nutritional status. REcommend consideration of PeG tube feedings for nutrition Current visit: Yes Status: Acute (2) Acute kidney injury: Problem details: Secondary to volume depletion and LORI-I Current visit: Yes Status: Acute (3) Acute dehydration: Problem details: Related to volume depletion Current visit: Yes Status: Acute (4) Atrial fibrillation with RVR: Problem details: Continue Coumadin, Rate controlled Current visit: No Status: Acute (5) Hyponatremia: Problem details: Will follow Current visit: No Status: Acute (6) Common bile duct stone: Problem details: T tube in place per surgery. Current visit: No Status: Acute (7) Severe protein-calorie malnutrition: Problem details: Recommend Peg Tube feedings. Dr. Lamb to discuss with GI timing of tube placement Current visit: Yes Status: Acute Plan: Assessment/Plan Narrative: PT/OT consultation. Patient would benefit from SNF at discharge Quality VTE Deep Vein Thrombosis/Pulmonary Embolism Present on Admission: No
[2018-09-05] MEDS: SODIUM CHLORIDE 0.9% 1,000 ML 100 ML IV (18:28)
[2018-09-05] MEDS: WARFARIN 3 MG TABLET PO (18:29)
--- NOTE | 2018-09-05 19:58 | PC.NURSE ---
Addendum entered by Miladys Ponce R.N. 09/05/18 22:19: NIH stroke scale completed with doctor of nursing practice. agreed with chart. Original Note: Addendum entered by Miladys Ponce R.N. 09/05/18 20:01: pt states he doesn't think he will need anything more to eat/drink tonight, except for water with pills. pt reported that he felt topped off after the oral pill he received. Original Note: 1500- assumed care of pt from outgoing shift. Pt awake and alert. changed dressings and gauze was fraying and not secure. Pt tolerated well. drained emptied. Pt tolerated. pt states he doesn't want any more food/drinks. refused dinner. Pt drank a strawberry milkshake from fast food. Pt brought in boosts, labeled and refrigerated. Pt uses call light. orders from md villanueva. changed fluids. will continue to monitor
--- NOTE | 2018-09-05 22:36 | PC.NURSE ---
Addendum entered by Zoë Ross 09/05/18 22:49: Fluids infusing are NS 0.9%. Original Note: 0: Patient is alert and oriented, 0/10 pain throughout shift. Patient reports reflux, burps, and slight nausea but has been otherwise comfortable. KENDRA and T-drain sites are asymptomatic and no signs of discharge, dressings were changed during shift. NIH assessment performed; score 0. Patient intake is very poor; refuses boost shakes until tomorrow AM, which are in fridge and labeled with patient stickers. IV infusing 0.5% NS in R upper arm. IV site is patent and asymptomatic. Patient left with call light in reach, bed locked and in lowest position.
[2018-09-06] VITALS (8 sets, daily range): BP systolic 115–168; BP diastolic 54–81; PULSE 66–88; RESP 15–20; TEMP 36.3–37.2; O2SAT 92–100; BMI 16.0
[2018-09-06] MEDS: ONDANSETRON 4 MG/2 ML INJ IV ×2 (04:40→21:32)
[2018-09-06] MEDS: SODIUM CHLORIDE 0.9% 1,000 ML 100 ML IV ×2 (04:40→14:55)
[2018-09-06 05:48] LABS: INR 2.1 (0.9-1.3); Prothrombin Time 23.3 SECONDS (10.1-12.7)
--- NOTE | 2018-09-06 05:57 | PC.NURSE ---
09/06 0600, pt alert and oriented, vss on RA. Denied pain but complained of some GI discomfort, stating that he felt queasy, finally allowed administration of some zofran this AM at 0430 with some stated relief. Urinated once this shift, in the AM after some encouragement, 275 urine output for this shift.
--- NOTE | 2018-09-06 08:54 | CM.DANOTE ---
DCP: Case received, EMR reviewed and met with patient. Introduced self and role. DCP template completed with information currently available. Patient is a 78 year old male who admitted yesterday morning via ambulance to the care of the hospitalist team. Payer: confirmed: Medicare/ for Life Patient came to hospital with symptoms of increased weakness, secondary to dehydration, as well as poor nutritional status. Patient has been here recently. At last hospitalization stay, discussed higher level of rehabilitation inpatient at [facility], but patient had refused. Discussion has occured for patient to get a Peg tube, is to meet with surgeon today. Met with patient this morning. Asked him if he may consider skilled rehab, and he stated he may, since he is weak. Will continue to have this conversation with patient. P: DCP to follow closely. Home versus skilled. Cinda Kramer RN/Cushion Gum Applicator
[2018-09-06] MEDS: CLOPIDOGREL 75 MG TABLET PO (09:30)
--- NOTE | 2018-09-06 11:29 | OT.IP.EVAL ---
Current Diagnoses Unspecified severe protein-calorie malnutrition (09/05/18) Dehydration (09/05/18) Hypo-osmolality and hyponatremia (09/05/18) Unspecified atrial fibrillation (09/05/18) Calculus of bile duct without cholangitis or cholecystitis without obstruction (09/05/18) Acute kidney failure, unspecified (09/05/18) Weakness (09/05/18) Abnormal findings on diagnostic imaging of other parts of digestive tract (09/05/18) Past Medical History (Last Reviewed 09/05/18 @ 17:03 by Lorenza Abbott MD) Chronic cough (Chronic) Inguinal hernia (Chronic) Reducible right inguinal hernia (Chronic) Vocal cord polyps (Resolved) Surgical History (Last Reviewed 09/05/18 @ 17:03 by Lorenza Abbott MD) H/O inguinal hernia repair (Resolved) Occupational Therapy Inpatient Evaluation/Re-Eval M1 PT/OT-IP Prior Functional Status Start: 09/05/18 14:29 Freq: NEEDED Status: Active Protocol: Document 09/06/18 11:29 [facility] (Rec: 09/06/18 16:16 [facility] [id number]) Medical Review Prior Functional Status Medical History Reviewed Yes Communication no deficits noted. Mobility and Gait Pt states previous ambulation was modified independent with 4ww ~90% of the time, fww ~10% . Ambulation distances are ~ 70 ft. Activities of Daily Living and IADL's Since pt discharged from hospital 9 days ago, he has not showered or removed LANDON hose per . He has been sponge bathing and changing clothes every other day due to fatigue and weakness. Pt was completing grooming and toileting independently, but has had 2 falls at home over the past week. Pt's appetite has been very poor at home and he was dehydrated on admit. does all IADLS. Prior Functional Level (Other details) Pt states his L side feels very weak and trembles before L leg gives out underneath him. Social History Household Members spouse Living Arrangements House Number of Floors (Floors) One Floor Number of Stairs To Enter/Railing? ramp to enter Home Environment Standard Height Toilet Tub/Shower Home Equipment Front Wheel Walker Four Wheel Walker Shower Seat with Backrest Hand Held Shower Box Coverer Hand Grab Bars Near Toilet Grab Bars In Shower Employment Status Retired Additional Social History Comment provides 24 hr assist at home. 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 Occupational Therapy Visit Comments Patient Comments I am too weak to get out of bed now. Patient/Caregiver Goals to get stronger and be able to go home OT Pain Assessment Pain When Pain Assessed After Treatment Pain Present Pain Present Pain Reported Location Right Ribs Intensity 2 Scale Used Numeric (1 - 10) Description Aching Pain Behaviors Guarding M4 OT- IP ADL's Start: 09/06/18 15:54 Freq: Status: Active Protocol: Document 09/06/18 11:29 NALINI (Rec: 09/06/18 16:16 PJ [id number]) OT XRX-Algu-Eyhhmmy General Evaluation Self-Feeding Ability Independent Areas Needing Assistance Drinking From Cup/Glass Opening Containers Comments OT Self-Feeding Comments pt has very poor appetite and needs much encouragement to increase oral intake or problem solve strategies to increase intake OT ADL-Grooming General Evaluation Grooming Ability Standby Assistance Areas Needing Assistance Retrieving/Set-up of Grooming Items Combing/Brushing Hair Face Washing Comments OT Grooming Comments with bed in chair position OT ADL-Oral Care General Eval Oral Care Ability Minimal Assistance Areas of Assistance Managing Dentures Retrieving/Set-Up of Items Comments Oral Care Comments pt set up with items needed to soak dentures OT ADL-Dressing General Eval Upper Body Dressing Ability Moderate Assistance Lower Body Dressing Ability Total Assistance OT ADL-Toileting General Evaluation Toileting Ability Total Assistance Areas Needing Assistance Perform Perineal Hygiene Devices Toileting Assistive Devices Commode Comments OT Toileting Comments Pt just up to BSC with 2 person mod assist per RN. OT ADL-Bathing Bathing Type Bathing Type Sponge Bath General Evaluation Bathing Ability Maximal Assistance Comments OT Bathing Comments Pt used shampoo cap with mod assist in bed today. M5 OT- IP IADL's Start: 09/06/18 15:54 Freq: Status: Active Protocol: Document 09/06/18 11:29 PJM (Rec: 09/06/18 16:16 [facility] [id number]) OT-Instrumental Activities of Daily Living Deficits IADL Deficits Identified Deficits Home Safety Awareness Awareness of Need for Assistance at Home Good Awareness Medication Management Medication Management Caregiver Provides Supervision Money Management Money Management Caregiver Provides Supervision Meal Preparation Meal Preparation Caregiver Provides Assist Supervisor Winter Supervisor Winter Caregiver Provides Assist Driving Driving Caregiver Provides Assist M6 OT- IP Functional Cognition Start: 09/06/18 15:54 Freq: Status: Active Protocol: Document 09/06/18 11:29 PJM (Rec: 09/06/18 16:16 [facility] [id number]) Cognitive Factors Limiting Selfcare Function Cognitive Ability Level of Alertness Alert Patient Orientation Name Month Date Year Place Situation Attention Span Ability Capable of Focused Attention Ability to Follow Commands Able to Follow One Step Commands Memory Description Short Term Impaired Safety Awareness Underestimates Need for Assistance Problem Solving Ability Needs Assist to Identify Solutions Cognitive Comments Cognitive Assessment Comments Pt presents with decreased recall of recent events. Decreased insight into severity of current medical situation. OT- Vision and Hearing OT- Hearing Assessment OT- Hearing Assessment WFL OT- Vision Assessment Visual Acuity WFL Glasses All The Time Vision Assessment Comments Pt reports some recent episodes of double vision but none today. M7 OT- IP Mobility and Balance Start: 09/06/18 15:54 Freq: Status: Active Protocol: Document 09/06/18 11:29 [facility] (Rec: 09/06/18 16:16 [facility] [id number]) OT-Transfer Assessment Comments Mobility Comments Pt adamantly declining to get out of bed this session. OT- Gait Assessment Comments Gait Ability Comments did not occur OT- Balance Assessment Comments Other Balance Tests/Deviations/Treatment to be assessed : M8 OT- IP Objective Assessments Start: 09/06/18 15:54 Freq: Status: Active Protocol: Document 09/06/18 11:29 PJM (Rec: 09/06/18 16:16 PJM [id number]) OT Gross Range of Motion Upper Extremity Range of Motion Assessment Within Functional Limits OT Strength Upper Extremity Strength Assessment Within Functional Limits Hand Occ Med Physician Strength Hand Dominance Right Comments Strength Comments No focal weakness noted except L shoulder 4+/5 OT- Coordination Assessment Comments Coordination Comments WFL BUE during self care tasks including opening packages OT-Muscle Tone Assessment Muscle Tone WNL Yes OT Sensation Assessment Comments Summary Comments Pt denies sensory deficits in BUES Edema Edema Absent Edema Comments Pt has BLE knee high LANDON hose in place that have decreased BLE edema per . M9 OT- IP Assessment and Plan Start: 09/06/18 15:54 Freq: Status: Active Protocol: Document 09/06/18 11:29 [facility] (Rec: 09/06/18 16:16 PJ [id number]) OT Summary Assessment and Plan Potential Analytic Complexity at Evaluation Moderate Summary OT Impairments Pain Strength Balance Functional Cognition Functional Mobility Grooming Dressing Toileting Bathing Toilet Transfers Shower Transfers Assessment Summary Moderate complexity OT assessment due to complex medical hx and additional time needed for chart review. Pt presents with significant performance deficits in activity tolerance/endurance, all functional mobility/ transfers requiring 2 person assist at present. Pt also has performance deficits in all standing self care tasks, dressing, bathing and toileting. He currently requires 24 hr assist for safety. Pt will benefit from OT services here to address the goals below. Pt not safe to d/c home with due to high care needs. Recommend SNF at d/c. Goals Grooming Goal Standby Assistance Dressing Goal Minimal Assistance Toileting Goal Minimal Assistance Bathing Goal Moderate Assistance Grab Bars Hand Held Shower Sprayer Long Handled Sponge or [place] Toilet Transfer Goal Minimal Assistance Shower Transfer Goal Minimal Assistance Patient/Caregiver Education Goal Demonstrate Energy Conservation and Pacing OT-Other Goals Grooming to be done sitting at sink or in chair. Days to Meet Goals 10 Frequency of Treatment Frequency Of Treatment Once a Day Treatment Plan OT Treatment Plan ADL Training Functional Mobility Patient/Family Education Discharge Planning Discharge Recommendations OT Discharge Recommendations SNF Rehab
--- NOTE | 2018-09-06 13:11 | PM.PN.1 ---
Subjective Date Patient Seen: 09/06/18 Interval history: Patient feels better today. He was able to ambulate with assistance. Still with poor appetite. He is agreeable to feeding tube placement and SNF if indicated. No dizziness Exam Vital Signs (past 8 hours): - 09/06/18 07:00 09/06/18 08:00 09/06/18 11:50 Temperature 99 F 98.9 F Pulse Rate 69 66 Respiratory Rate 20 18 Blood Pressure 168/81 H 142/67 H Pulse Oximetry 100 98 92 Oxygen Delivery Method Room Air Oxygen Flow Rate 0 Narrative Exam Narrative: Pleasant gentleman in NAD Lungs: Clear to auscultation CV:RRR nl Sl S2 Abd: Soft/ non tender/ non distended Ext: no edema Objective Labs Result Diagrams: 09/05/18 14:30 09/05/18 14:30 Labs: Laboratory Results - last 24 hr 09/05/18 09/05/18 09/06/18 14:30 14:30 05:14 WBC 5.9 RBC 4.84 Hgb 12.9 L Hct 39.7 L MCV 82.1 MCH 26.7 MCHC 32.5 RDW 14.9 H Plt Count 202 Neut % (Auto) 76.2 H Lymph % (Auto) 13.6 L [place] % (Auto) 7.9 Eos % (Auto) 1.7 L Baso % (Auto) 0.6 Neut # (Auto) 4500 PT 23.3 H INR 2.1 H Sodium 142 Potassium 4.2 Chloride 110 H Carbon Dioxide 19 L BUN 74 H Creatinine 1.30 H Estimated GFR 53.7 L BUN/Creatinine Ratio 56.9 H Glucose 131 H Calcium 8.8 Assessment & Plan (1) Severe protein-calorie malnutrition: Problem details: Recommend Peg Tube feedings. Dr. Lamb to discuss with GI timing of tube placement Continue supplements for now Current visit: Yes Status: Acute (2) Weakness: Problem details: Likely secondary to dehydration and poor nutritional status. REcommend consideration of PeG tube feedings for nutrition Current visit: Yes Status: Acute (3) Acute kidney injury: Problem details: Secondary to volume depletion and LORI-I Still not at baseline, will continue IV hydration for now Current visit: Yes Status: Acute (4) Acute dehydration: Problem details: Related to volume depletion Current visit: Yes Status: Acute Quality VTE Deep Vein Thrombosis/Pulmonary Embolism Present on Admission: No
--- NOTE | 2018-09-06 14:01 | PC.NURSE ---
Day shift Pt is A&O able to make needs known, Reports he feels a little better today then he did yesterday. this morning after breakfast c/o pain to middle upper abdomen and non specific states it comes and goes. 2 mod assist with FWW transfer to [facility] voided and had BM, during pills this morning pt had trouble swallowing and was coughing after. This RN asked Pt if he has been having a hard time swallowing and Pt states yes it has been getting more difficult. MD noticed and ordered speech eval. Spouse into visit. Encouraged fluids and boost. IV fluids infusing per order. Call light within reach and bed alarm for safety.
--- NOTE | 2018-09-06 15:28 | PT.IPTN ---
Current Diagnoses Unspecified severe protein-calorie malnutrition (09/05/18) Dehydration (09/05/18) Hypo-osmolality and hyponatremia (09/05/18) Unspecified atrial fibrillation (09/05/18) Calculus of bile duct without cholangitis or cholecystitis without obstruction (09/05/18) Acute kidney failure, unspecified (09/05/18) Weakness (09/05/18) Abnormal findings on diagnostic imaging of other parts of digestive tract (09/05/18) Physical Therapy Treatment Note M2 PT-IP Current Condition Start: 09/05/18 14:29 Freq: NEEDED Status: Active Protocol: Document 09/05/18 13:49 (Rec: 09/05/18 14:46 [id number]) Physical Therapy Current Condition Current Condition Evaluation Date 09/05/18 Treatment Diagnosis Generalized weakness Onset Date 09/05/18 Precautions Lumbar Precautions Log Roll No Twisting Limit Bending Lifting Restriction of 10 lbs Gait Belt above Incisional Area Other Precautions drain, T-tube M3 PT-IP Subjective Start: 09/05/18 14:29 Freq: NEEDED Status: Active Protocol: Document 09/06/18 15:12 SA (Rec: 09/06/18 15:28 SA [email or web address]) Subjective Physical Therapy Visit Type Type Treatment Note Visit Start Time 14:50 Visit Stop Time 15:08 Total Visit Minutes 18 Number of RECRUITMENT ASSISTANT Visits 1 Physical Therapy Visit Comments Patient Comments Pt ageeable to try and sit at EOB, feeling very weak and like he has no strength Therapy Pain Assessment Pain Present Pain Present Denied Pain M4 PT-IP Mobility and Gait Start: 09/05/18 14:29 Freq: NEEDED Status: Active Protocol: Document 09/06/18 15:12 SA (Rec: 09/06/18 15:28 SA [id number]) PT-Bed Mobility Assessment Rolling Type of Rolling Roll to Left Level of Assist Contact Guard Assistance Supine to Sit Supine to Sit Contact Guard Assistance Head of Bed Elevated Sit to Supine Sit to Supine Standby Assistance Head of Bed Elevated Scooting Scooting to Edge of Bed Contact Guard Assistance Scooting Up and Down in Bed Minimal Assistance PT-Transfer Assessment Sit to and From Stand Sit to and from Stand Contact Guard Assistance Equipment Transfer Assistive Device Gait Belt Front Wheeled Walker Comments Mobility Comments Pt stood at EOB for 1 min with PLB and postural correction, CGA provided. Lateral stepping to head of bed with CGA-Min A and Min cues. PT-Balance Assessment Comments Other Balance Tests/Deviations/Treatment Seated at EOB lateral weight : shifting and postural correction in sitting prior to standing. M5 PT-IP Objective Assessments Start: 09/05/18 14:29 Freq: NEEDED Status: Active Protocol: Document 09/05/18 13:49 (Rec: 09/05/18 14:46 [id number]) Orientation Orientation/Cognition Level of Alertness Alert Orientation Name Age Birthday Month Date Year Day of Week Place Situation Safety Awareness Decreased Safety Awareness Gross Range of Motion Lower Extremity ROM Assessment Within Functional Limits Strength Lower Extremity Strength Assessment Bilaterally Impaired Comments Strength Comments BLE 4/5 grossly. M6 PT-IP Treatment Start: 09/05/18 14:29 Freq: NEEDED Status: Active Protocol: Document 09/06/18 15:12 SA (Rec: 09/06/18 15:28 SA [id number]) Physical Therapy Treatment Exercises Exercises Ankle Pumps Quad Sets Seated Knee Flexion/Extension M7 PT-IP Assessment and Plan Start: 09/05/18 14:29 Freq: NEEDED Status: Active Protocol: Document 09/06/18 15:12 SA (Rec: 09/06/18 15:28 SA [email or web address]) PT Summary Assessment and Plan Frequency of Treatment Frequency Of Treatment Once a Day Recommendations To Nursing Amount of Assist Needed 2 Person Assist Discharge Recommendations PT Discharge Recommendations SNF Rehab
--- NOTE | 2018-09-06 15:55 | PC.NURSE ---
Pt lying in bed awake and alert. Appropriate mentation and conversation. Speech pathologist in to see patient @ beginning of shift.
--- NOTE | 2018-09-06 16:54 | ST.IPCSEOM ---
Care Team Visit Care Team Role Provider Type Tato Lamb MD Other Providers Physician Specialty: General Surgery Address: [address] [place] [address], [id number] Email: [email or web address] Francisca Stein DO Emergency Provider Physician Specialty: Emergency Medicine Address: [address] [place] [address], [facility] Email: Lorenza Abbott MD Admit Provider Physician Attending Provider Specialty: Internal Medicine Address: [address] [place] [address], [facility] Email: [email or web address] Diagnoses Unspecified severe protein-calorie malnutrition (09/05/18) Dehydration (09/05/18) Hypo-osmolality and hyponatremia (09/05/18) Unspecified atrial fibrillation (09/05/18) Calculus of bile duct without cholangitis or cholecystitis without obstruction (09/05/18) Acute kidney failure, unspecified (09/05/18) Weakness (09/05/18) Abnormal findings on diagnostic imaging of other parts of digestive tract (09/05/18) Past Medical History (Last Reviewed 09/05/18 @ 17:03 by Lorenza Abbott MD) Chronic cough (Chronic Medical) Inguinal hernia (Chronic Medical) Reducible right inguinal hernia (Chronic Medical) Vocal cord polyps (Resolved Medical) removed Speech-Language Pathology Swallow Evaluation SEARCH ENGINE OPTIMIZATION SPECIALIST Clinical Swallow Evaluation Start: 09/06/18 15:23 Freq: Status: Active Protocol: Document 09/06/18 15:24 [facility] (Rec: 09/06/18 15:29 [facility] [id number]) Clinical Swallow Evaluation Session Time Visit Start Time 14:05 Visit Stop Time 15:05 Total Visit Minutes [address] Abbott Reason for Referral Difficulty swallowing; poor intake Setting Assessment Location Acute Care Visit Type Note Type Initial Evaluation Next Note Type Next Note Type Treatment Note Patient Information Identification Type Name Date of Other History Patient is a 78 year old male with a complicated medical history. He was recently admitted to [facility] and seen by PT/OT/ST. No swallowing difficulties observed at that time, but he scored 20/30 on the SLUMS. Speech was seeing him for cognition only during his previous stay, but in the second treatment session, he requested to discontinue speech therapy due to receiving bad news from a physician and wanted to focus on physical therapy. He was discharged home with his . He returned to [facility] on 09/05/18 with weakness and significant weight loss (45 pounds in about a month). Dr Lamb is evaluating him to assess candidacy for PEG tube placement. He has a complicated GI medical history with an ERCP scheduled in the near future. Dr Lamb is considering if/when to place PEG tube with ERCP scheduled soon. A swallow evaluation was requested due to patient's significantly reduced intake and some mention of new difficulty swallowing. Subjective Observations Patient awake and alert, lying in bed with no family present . No complaint of pain pre/ post evaluation. SEARCH ENGINE OPTIMIZATION SPECIALIST had lengthy conversation with patient regarding his overall function, swallowing ability and nutritional status. He stated that he was not having much difficulty eating or drinking, but that everything tasted ugly. He stated that anything he ate had a bad taste and made him feel sick to his stomach. He stated that when he forced himself to eat , he wasn't able to get more than 3-4 bites in before feeling nauseated. He was apprehensive to eat more because he did not want to vomit (which has only happened once). His diet has significantly reduced due to his aversion to intake in hopes of avoiding throwing up. SEARCH ENGINE OPTIMIZATION SPECIALIST discussed various food options for the patient - protein shakes, high calorie food, etc. SEARCH ENGINE OPTIMIZATION SPECIALIST also mentioned that his could bring in food that sounded good. He was agreeable to this, but stated that he still wouldn't be able to get much down because it makes him feel sick. SEARCH ENGINE OPTIMIZATION SPECIALIST discussed potential PEG placement, and he stated that he had questions about it, but understood the need for it. He was not very eager to receive one, stating, I already have enough holes in me. But he did not verbalize that he did not want one. SEARCH ENGINE OPTIMIZATION SPECIALIST explained the purpose of a PEG tube and explianed that they are not always permanent, but can act as a suppliment to assist a patient gain strength and stamina necessary in order to successfully participate in therapy and have a greater chance of overall recovery. He verbalized understanding. Evaluation Liquids Trialed Thin Solids Trialed Dysphagia Mechanical Mechanical Soft Administration Type Controlled Cup Sip Straw Oral Impairment WNL Oral Strategies Upright at 90 degrees Oral Phase Comments No oral dysphagia Pharyngeal Impairment WNL Pharyngeal Phase Comments No pharyngeal dysphagia Findings Dysphagia Type No dysphagia Impressions Patient does not present with oropharyngeal dysphagia at this time. He was able to tolerate soft fruit, soft sandwich and thin liquids without difficulty. No oropharyngeal impariment observed. No suspicion of aspiration. Patient presents with functional swallowing ability, but significant food aversion. Discussed multiple small meals througout the day to relieve the amount of intake at one time and allow the stomach to be more consistently digesting food. Patient agreeable to this. Findings were discussed with Dr Abbott, who agreed with SEARCH ENGINE OPTIMIZATION SPECIALIST. At this time, patient is scheduled to receive a PEG tube, most likely, tomorrow. Discharge patient from caseload at this time. Please reconsult if warranted. Diet Recommendations Liquids Order Thin Diet Order Regular Medication Recommendations As Tolerated Aspiration Precautions Recommended Precautions Upright at 90 Degrees Alternate Liquids/Solids Frequent Rest Periods Small Bites/Sips Treatment Plan Placement Recommendations after Care Home Facility Discharge Appropriate for Therapy No Therapy Recommendations At this time, patient has no oropharyngeal dysphagia or immediate needs for skilled intervention from speech therapy. SEARCH ENGINE OPTIMIZATION SPECIALIST provided extensive education to patient , who verbalized understanding . Discharge patient from caseload. Please reconsult if warranted.
[2018-09-06] MEDS: WARFARIN 3 MG TABLET PO (17:14)
[2018-09-06] MEDS: CALCIUM CARBONATE 500 MG TAB PO ×2 (17:14→21:31)
--- NOTE | 2018-09-06 18:58 | P.CONS_ITS ---
History of Present Illness Date Patient Seen: 09/06/18 Time Patient Seen: 16:00 Chief complaint: Weakness Reason for consult: Weakness, dehydration, and severe protein calorie malnutrition Requesting provider: Lorenza Abbott Narrative: 78-year-old male well known to me status post open cholecystectomy with common bile duct exploration and retained common duct stone several weeks ago now who has had a somewhat complicated postoperative course secondary to cerebrovascular disease and stroke. He was eventually discharged home after returning with the acute CVA but has continued to have difficulties at home with poor oral intake, dehydration, and ongoing weakness. He presented to my office for scheduled outpatient follow-up 2 days ago now at which time he appeared to be weak in somewhat dehydrated. Laboratory studies were obtained which confirmed acute renal insufficiency secondary to dehydration. I discussed this with him that day and he was to follow up with his primary care physician yesterday. However, patient presented the emergency department early yesterday morning with progressive weakness and was unable to arise from a seated position at home. He was therefore admitted per the internal medicine service for ongoing IV fluid resuscitation and reassessment. There has been no evidence of recurrent CVA or acute intracerebral hemorrhage now that he is on anticoagulation therapy. His appetite remains poor. His pain is minimal. His T-tube in Dhruv-Gutierrez drain are functioning normally as documented 2 days ago in the office. He is having bowel function but overall he is feeling quite debilitated. [facility] Medical History Bilateral carotid artery stenosis (Acute) Cholecystitis with cholelithiasis (Acute) Choledocholithiasis (Acute) Gallstone pancreatitis (Acute) History of CVA (cerebrovascular accident) without residual deficits (Acute) History of tobacco abuse (Acute) Other severe protein-calorie malnutrition (Acute) Peripheral vascular disease (Acute) Retained gallstones following open cholecystectomy (Acute) Chronic cough (Chronic) Inguinal hernia (Chronic) Reducible right inguinal hernia (Chronic) Vocal cord polyps (Resolved) Surgical History Status post cholecystectomy (Acute) H/O inguinal hernia repair (Resolved) Family History Mother No known health problems Father No known health problems Social History household members: spouse Smoking Status: Current every day smoker alcohol intake: former Meds Home Medications Medication Instructions Recorded Confirmed Type atorvastatin [Lipitor] 40 mg PO BEDTIME #30 tab 08/27/18 09/05/18 Rx clopidogrel [Plavix] 75 mg PO DAILY #30 tab 08/27/18 09/05/18 Rx lisinopril 20 mg PO BID #60 tab 08/27/18 09/05/18 Rx metoprolol tartrate 50 mg PO BID #60 tab 08/27/18 09/05/18 Rx warfarin [Coumadin] 1 mg PO BID 09/05/18 09/05/18 History Allergies Allergy/AdvReac Type Severity Reaction Status Date / Time diltiazem Allergy Mild Hives Verified 09/04/18 13:41 Review of Systems Review of Systems All systems reviewed & are unremarkable except as noted in HPI and below Exam Vital Signs (past 8 hours): - 09/06/18 11:50 09/06/18 15:48 Temperature 98.9 F 97.9 F Pulse Rate 66 78 Respiratory Rate 18 20 Blood Pressure 142/67 H 115/55 L Pulse Oximetry 92 99 Oxygen Delivery Method Room Air Oxygen Flow Rate 0 Narrative Exam Narrative: Very thin elderly acutely ill-appearing male but in no acute distress. He appears nearly emaciated. No fevers or tachycardia Sclera nonicteric Chest shows distant breath sounds bilaterally but no crackles. Few expiratory minor wheezes. Regular rate rhythm. Abdomen is soft and nondistended. T-Tube in Dhruv-Gutierrez drain remained in place. T-Tube is collecting bile. Dhruv-Gutierrez drain shows serous fluid only. Incisions are clean, dry, and intact while healing nicely. No erythema or ecchymosis. Abdomen is otherwise soft and nondistended. No masses. He is appropriately tender at the incision without guarding or rebound. Extremities show no clubbing or cyanosis Objective Labs Result Diagrams: 09/05/18 14:30 09/05/18 14:30 Labs: Laboratory Results - last 24 hr 09/06/18 05:14 PT 23.3 H INR 2.1 H Assessment & Plan Plan: Assessment/Plan Narrative: 78-year-old male status post open cholecystectomy with common bile duct exploration, placement of T-tube, and retained common duct stone complicated by postoperative ileus necessitating readmission to the hospital now with ongoing issues regarding severe protein calorie malnutrition and anorexia. 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 This may be complicating his nutritional status. He is unable to tolerate significant oral intake of any kind actually. He has no evidence of infectious complications however. At this point we will continue the T-tube Dhruv-Gutierrez drain with plan for ERCP at some point in the future, but patient requires significant resuscitation and nutritional support. I agree that he would be a candidate for PEG placement and subsequent tube feedings which I actually discussed with him in the office as an outpatient 2 days ago. He understands that he would need to be off of all anticoagulation for such including anti-platelet therapy. I will contact gastroenterology to ensure that this will not cause any issues with his ERCP but I am not aware of any. I will send drain fluid for amylase just to be sure he has not incurred any type of duct leak following the pancreatitis. I believe would be beneficial repeat his CT scan to assess for pseudocyst or other issues with the tail of the pancreas which appeared mildly ischemic and his most recent CT scan during the acute episode. Obviously, this may be potentially complicating his nutritional status and ability to tolerate a diet as well. Once his acute renal injury has resolved and his baseline creatinine is back to 0.6-0.8 as it was previously then I believe it would be safe to proceed with CT scan with contrast. Thereafter we could then place endoscopic PEG tube once his anticoagulation is reversed and he is otherwise stable. I discussed all this with him in detail. Questions were answered to his satisfaction, and he voiced understanding. Orders were written. Proceed as above.
--- NOTE | 2018-09-06 21:41 | PC.NURSE ---
0: Patient alert and oriented; reports pain 2/10 but refuses pain meds. Patient refused bedtime scheduled atorvastatin due to reflux and burping, and stated having difficulty swallowing. Requested bedtime Tums, to help with indigestion. Tums also given with PM meal; patient reported alleviation of reflux post-administration. Patient voiding regularly using urinal; clear, light yellow urine. Patient has very poor nutritional intake; needs frequent offering of Boost shakes, which are labeled with patient stickers in fridge. No reported muscle spasms this shift. Patient slides down in bed and frequently needs readjustment with draw sheet. Patient now comfortably watching TV, bed alarm in reach, wheels locked, bed in lowest position.
[2018-09-07] VITALS (7 sets, daily range): BP systolic 132–160; BP diastolic 60–70; PULSE 68–88; RESP 16–20; TEMP 36.4–36.6; O2SAT 95–100
[2018-09-07 06:05] LABS: Add Manual Diff / Slide Review NO; Basophils Percent Auto 0.7 % (0-2); Eosinophils Percent Auto 5.6 % (2-4); Hematocrit 35.6 % (41-53); Hemoglobin 11.9 g/dL (13.5-17.5); Lymphocytes Percent Auto 18.1 % (25-40); Mean Corpuscular HGB Conc 33.4 % (30-36); Mean Corpuscular Hemoglobin 27.4 PG (26-34); Mean Corpuscular Volume 82.1 fL (80-100); Monocytes Percent Auto 10.6 % (3-14); Neutrophils Absolute Auto 3300 /uL (3000-5900); Platelet Count 156 X10^3/uL (150-400); Red Blood Cell Count 4.33 X10^6/uL (4.5-5.9); Red Cell Distribution Width 15.3 % (11.6-14.8); White Blood Cell Count 5.1 X10^3/uL (4.5-11.0)
[2018-09-07 06:06] LABS: INR 3.2 (0.9-1.3)
[2018-09-07 06:12] LABS: Blood Urea Nitrogen 28 mg/dL (9-20); Calcium 8.5 mg/dL (8.4-10.2); Carbon Dioxide 21 mmol/L (22-32); Chloride 111 mmol/L (98-107); Estimated Glomerular Filt Rate > 60.0 mL/min (>60); Glucose 90 mg/dL (80-110); HEMOLYSIS < 15 (0-50); Potassium 4.4 mmol/L (3.4-5.1); Sodium 140 mmol/L (137-145)
[2018-09-07 08:32] LABS: Amylase Body Fluid 65 IU/L
--- NOTE | 2018-09-07 08:58 | CM.DPC ---
Referral faxed to [facility] per Tanesha
--- NOTE | 2018-09-07 09:00 | CM.DPC ---
DCP Cont: Spoke to patient's , Alana. Discussed discharge plan. She is in agreement that patient needs detention rehab. She had addressed [facility], but let her know that this is an assisted living facility, so she is requesting [facility]. Patient is Medicare/ for Life, so he would need a 3 day stay. Asked Jayleen to fax over clinicals to [facility]. Patient continues to have decreased appetite. P: DCP to continue to follow closely. Patient will need detention upon discharge. Cinda Kramer RN/[employer]ural [employer]
[2018-09-07] MEDS: SODIUM CHLORIDE 0.9% 1,000 ML 100 ML IV (10:16)
--- NOTE | 2018-09-07 12:45 | PM.PN.1 ---
Subjective Date Patient Seen: 09/07/18 Interval history: Overall the patient feels much better. He feels stronger and feels like his voice is stronger. He still has no appetite but is trying to eat nonetheless. He is agreeable to a PEG tube and agreeable to going to a SNF at discharge. Exam Vital Signs (past 8 hours): - 09/07/18 05:10 09/07/18 08:46 Temperature 97.7 F 97.6 F Pulse Rate 77 88 Respiratory Rate 16 18 Blood Pressure 143/67 H 142/70 H Pulse Oximetry 97 99 Oxygen Delivery Method Room Air Oxygen Flow Rate 0 Narrative Exam Narrative: Pleasant gentleman resting comfortable Lungs: Clear to auscultation CV: irregularly, irregular Nl Sl S2 Abd: soft/non tender/ nondistended, Ext: no edema Objective Labs Result Diagrams: 09/07/18 05:02 09/07/18 05:02 Labs: Laboratory Results - last 24 hr 09/07/18 09/07/18 09/07/18 05:02 05:02 05:02 WBC 5.1 RBC 4.33 L Hgb 11.9 L Hct 35.6 L MCV 82.1 MCH 27.4 MCHC 33.4 RDW 15.3 H Plt Count 156 Neut % (Auto) 65.0 Lymph % (Auto) 18.1 L [place] % (Auto) 10.6 Eos % (Auto) 5.6 H Baso % (Auto) 0.7 Neut # (Auto) 3300 PT 35.0 H D INR 3.2 H Sodium 140 Potassium 4.4 Chloride 111 H Carbon Dioxide 21 L BUN 28 H Creatinine 0.70 Estimated GFR > 60.0 BUN/Creatinine Ratio 40.0 H Glucose 90 Calcium 8.5 Fluid Amylase 09/07/18 08:07 WBC RBC Hgb Hct MCV MCH MCHC RDW Plt Count Neut % (Auto) Lymph % (Auto) [place] % (Auto) Eos % (Auto) Baso % (Auto) Neut # (Auto) PT INR Sodium Potassium Chloride Carbon Dioxide BUN Creatinine Estimated GFR BUN/Creatinine Ratio Glucose Calcium Fluid Amylase 65 Assessment & Plan (1) Severe protein-calorie malnutrition: Problem details: Recommend Peg Tube feedings. Dr. Lamb to discuss with GI timing of tube placement Continue supplements for now. Anticipate PEG placement on Tuesday Current visit: Yes Status: Acute (2) Weakness: Problem details: Likely secondary to dehydration and poor nutritional status. REcommend consideration of PeG tube feedings for nutrition Current visit: Yes Status: Acute (3) Acute kidney injury: Problem details: Secondary to volume depletion and LORI-I Improving nicely, will d/c IV hydration now Current visit: Yes Status: Acute (4) Acute dehydration: Problem details: Related to volume depletion Current visit: Yes Status: Acute (5) Atrial fibrillation with RVR: Problem details: D/C Coumadin and Plavix, awaiting PEg on Tuesday. Will start Lovenox for DVT prophylaxis Current visit: No Status: Acute (6) Common bile duct stone: Problem details: T tube in place per surgery. Current visit: No Status: Acute Quality VTE Deep Vein Thrombosis/Pulmonary Embolism Present on Admission: No
--- NOTE | 2018-09-07 13:57 | PT.IPTN ---
Current Diagnoses Unspecified severe protein-calorie malnutrition (09/05/18) Dehydration (09/05/18) Hypo-osmolality and hyponatremia (09/05/18) Unspecified atrial fibrillation (09/05/18) Calculus of bile duct without cholangitis or cholecystitis without obstruction (09/05/18) Acute kidney failure, unspecified (09/05/18) Weakness (09/05/18) Abnormal findings on diagnostic imaging of other parts of digestive tract (09/05/18) Physical Therapy Treatment Note M2 PT-IP Current Condition Start: 09/05/18 14:29 Freq: NEEDED Status: Active Protocol: Document 09/05/18 13:49 (Rec: 09/05/18 14:46 [id number]) Physical Therapy Current Condition Current Condition Evaluation Date 09/05/18 Treatment Diagnosis Generalized weakness Onset Date 09/05/18 Precautions Lumbar Precautions Log Roll No Twisting Limit Bending Lifting Restriction of 10 lbs Gait Belt above Incisional Area Other Precautions drain, T-tube M3 PT-IP Subjective Start: 09/05/18 14:29 Freq: NEEDED Status: Active Protocol: Document 09/07/18 13:51 SA (Rec: 09/07/18 13:57 SA [id number]) Subjective Physical Therapy Visit Type Type Treatment Note Visit Start Time 10:15 Visit Stop Time 10:40 Total Visit Minutes 25 Number of BEDSPREAD CUTTER HAND Visits 2 Physical Therapy Visit Comments Patient Comments Pt feeling a little lilly but still very tired. Willing to try standing at EOB. Therapy Pain Assessment Pain Present Pain Present Denied Pain M4 PT-IP Mobility and Gait Start: 09/05/18 14:29 Freq: NEEDED Status: Active Protocol: Document 09/07/18 13:51 SA (Rec: 09/07/18 13:57 SA [id number]) PT-Bed Mobility Assessment Rolling Type of Rolling Roll to Left Level of Assist Contact Guard Assistance Supine to Sit Supine to Sit Contact Guard Assistance Head of Bed Elevated Sit to Supine Sit to Supine Standby Assistance Head of Bed Elevated Scooting Scooting to Edge of Bed Contact Guard Assistance Scooting Up and Down in Bed Contact Guard Assistance PT-Transfer Assessment Sit to and From Stand Sit to and from Stand Contact Guard Assistance Equipment Transfer Assistive Device Gait Belt Front Wheeled Walker Comments Mobility Comments Sit to stands from EOB to FWW with CGA. Static standing for 2 + 1 minute and completion of lateral stepping and heel/toe raises. PT-Balance Assessment Comments Other Balance Tests/Deviations/Treatment Seated marching, ankle pumps, : knee FLEX/EXT and supine heel slides. M5 PT-IP Objective Assessments Start: 09/05/18 14:29 Freq: NEEDED Status: Active Protocol: Document 09/05/18 13:49 (Rec: 09/05/18 14:46 [id number]) Orientation Orientation/Cognition Level of Alertness Alert Orientation Name Age Birthday Month Date Year Day of Week Place Situation Safety Awareness Decreased Safety Awareness Gross Range of Motion Lower Extremity ROM Assessment Within Functional Limits Strength Lower Extremity Strength Assessment Bilaterally Impaired Comments Strength Comments BLE 4/5 grossly. M6 PT-IP Treatment Start: 09/05/18 14:29 Freq: NEEDED Status: Active Protocol: Document 09/07/18 13:51 SA (Rec: 09/07/18 13:57 SA [id number]) Physical Therapy Treatment Exercises Exercises Ankle Pumps Quad Sets Seated Knee Flexion/Extension Education Education Provided Safety Equipment Issued Equipment Type and Company Education for frequent activity. M7 PT-IP Assessment and Plan Start: 09/05/18 14:29 Freq: NEEDED Status: Active Protocol: Document 09/07/18 13:51 SA (Rec: 09/07/18 13:57 SA [id number]) PT Summary Assessment and Plan Frequency of Treatment Frequency Of Treatment Once a Day Recommendations To Nursing Amount of Assist Needed 2 Person Assist Discharge Recommendations PT Discharge Recommendations SNF Rehab
--- NOTE | 2018-09-07 15:15 | OT.IP.TRT ---
Current Diagnoses Unspecified severe protein-calorie malnutrition (09/05/18) Dehydration (09/05/18) Hypo-osmolality and hyponatremia (09/05/18) Unspecified atrial fibrillation (09/05/18) Calculus of bile duct without cholangitis or cholecystitis without obstruction (09/05/18) Acute kidney failure, unspecified (09/05/18) Weakness (09/05/18) Abnormal findings on diagnostic imaging of other parts of digestive tract (09/05/18) Occupational Therapy Treatment Note M2 OT-IP Current Condition Start: 09/06/18 15:54 Freq: Status: Active Protocol: Document 09/06/18 11:29 PJM (Rec: 09/06/18 16:16 PJM [id number]) Occupational Therapy Current Condition Current Condition Evaluation Date 08/23/18 Treatment Diagnosis weakness, dehydration,/poor nutritional, Stroke 08/23/18 w /LLE weakness Diagnosis Onset Date 09/04/18 Post Operative Precautions Abdominal Surgery Precautions Log Roll Lifting Restrictions Gait Belt above Incisional Area Other Precautions KENDRA drain, T-tube R lower quadrant M3 OT- IP Subjective and Pain Start: 09/06/18 15:54 Freq: Status: Active Protocol: Document 09/07/18 15:15 PJM (Rec: 09/07/18 18:25 PJM [id number]) OT- Subjective Occupational Therapy Visit Type Type Treatment Note Visit Start Time 14:50 Visit Stop Time 15:15 Total Visit Minutes 25 Notes Pt in bed when therapist arrived; agreeable to try transfer to chair with encouragement. Occupational Therapy Visit Comments Patient Comments I am still worried about falling, but I feel stronger today. Patient/Caregiver Goals to get stronger for PEG tube procedure next week OT Pain Assessment Pain When Pain Assessed After Treatment Pain Present Pain Present Denied Pain Freq: Status: Active Protocol: Document 09/06/18 11:29 PJM (Rec: 09/06/18 16:16 PJM [id number]) Cognitive Factors Limiting Selfcare Function Cognitive Ability Level of Alertness Alert Patient Orientation Name Month Date Year Place Situation Attention Span Ability Capable of Focused Attention Ability to Follow Commands Able to Follow One Step Commands Memory Description Short Term Impaired Safety Awareness Underestimates Need for Assistance Problem Solving Ability Needs Assist to Identify Solutions Cognitive Comments Cognitive Assessment Comments Pt presents with decreased recall of recent events. Decreased insight into severity of current medical situation. M7 OT- IP Mobility and Balance Start: 09/06/18 15:54 Freq: Status: Active Protocol: Document 09/07/18 15:15 PJM (Rec: 09/07/18 18:25 PJM [id number]) OT- Bed Mobility Assessment Rolling Type of Rolling Roll to Left Level of Assistance Contact Guard Assistance 1 Person Assistance Head of Bed Elevated Bedrails Supine to Sit Supine to Sit Assist Standby Assistance 1 Person Assistance Head of Bed Elevated Bedrails Scooting Scooting to Edge of Bed Standby Assistance OT-Transfer Assessment Sit to and From Stand Sit to and from Stand Contact Guard Assistance 1 Person Assistance Transfers Transfer Ability Contact Guard Assistance 1 Person Assistance Technique Transfer Destination Chair Transfer Technique Stand Step Pivot Devices Transfer Assistive Devices Gait Belt Front Wheeled Walker Comments Mobility Comments No buckling of knees noted with transfer. OT- Balance Assessment Sitting Balance and Reactions Static Sitting Balance Ability Good Dynamic Sitting Balance Ability Fair Standing Balance and Reactions Static Standing Balance Ability Good Dynamic Standing Balance Ability Fair Comments Other Balance Tests/Deviations/Treatment Pt able to stand at sink with : recliner directly behind him for 2 min x2 including 15 -20 steps of marching ion place each time and seated rest break in between standing trials. No buckling of knees noted but L knee tends to hyperextend slightly in standing. M8 Edema Edema Absent Edema Comments Pt has BLE knee high LANDON hose in place that have decreased BLE edema per . M9 OT- IP Assessment and Plan Start: 09/06/18 15:54 Freq: Status: Active Protocol: Document 09/07/18 15:15 PJM (Rec: 09/07/18 18:25 PJM [id number]) OT Summary Assessment and Plan Summary OT Impairments Strength Balance Functional Mobility Grooming Dressing Toileting Bathing Toilet Transfers Shower Transfers Assessment Summary Pt remains very fearful of falling and needs significant encouragement to mobilize out of bed. Pt able to complete bed mobility using bed features with min to SBA assist and did successful stand pivot transfer to chair with CGA of 1 and no knee buckling this session. Pt also tolerated 2 standing/marching trials at sink with chair directly behind to increase confidence. L LE weakness with some knee hyperextension noted in standing. Will try standing at sink for grooming tomorrow to increase strength, balance and activity tolerance. Per pt, PEG tube procedure planned for next week. Goals: Grooming Goal Standby Assistance Dressing Goal Minimal Assistance Toileting Goal Minimal Assistance Bathing Goal Moderate Assistance Grab Bars Hand Held Shower Sprayer Long Handled Sponge or [place] Toilet Transfer Goal Minimal Assistance Shower Transfer Goal Minimal Assistance Patient/Caregiver Education Goal Demonstrate Energy Conservation and Pacing OT-Other Goals Grooming to be done sitting at sink or in chair. Days to Meet Goals 9 Frequency of Treatment Frequency Of Treatment Once a Day Treatment Plan OT Treatment Plan ADL Training Functional Mobility Patient/Family Education Discharge Planning Discharge Recommendations OT Discharge Recommendations SNF Rehab Home Equipment Needs to be determined in next rehab setting
[2018-09-07] MEDS: CALCIUM CARBONATE 500 MG TAB PO ×2 (16:18→21:04)
--- NOTE | 2018-09-07 16:56 | P.PN_ITS ---
Subjective Date Patient Seen: 09/07/18 Time Patient Seen: 08:55 Interval history: Patient denies any significant pain. However, he remains essentially anorexic stating that food is simply does not taste good him. He feels very full very early. No nausea or vomiting however. He is having bowel function. No subjective fever chills. No chest pain or shortness of breath. Exam Vital Signs (past 8 hours): - 09/07/18 10:00 09/07/18 11:55 09/07/18 16:34 Temperature 97.7 F 97.8 F Pulse Rate 76 87 Respiratory Rate 20 20 Blood Pressure 134/61 132/68 Pulse Oximetry 97 100 100 Oxygen Delivery Method Room Air Oxygen Flow Rate 0 Narrative Exam Narrative: Thin male in no acute distress lying comfortably in bed. Alert orient x3. He is eating some small amount of breakfast food at the time of my visit. Sclera nonicteric Abdomen soft, nondistended, nontender, no masses. Wounds are clean, dry, and intact. There is bile from the T-tube drain. Serous fluid only in the Dhruv- Gutierrez drain. Objective Labs Result Diagrams: 09/07/18 05:02 09/07/18 05:02 Labs: Laboratory Results - last 24 hr 09/07/18 09/07/18 09/07/18 05:02 05:02 05:02 WBC 5.1 RBC 4.33 L Hgb 11.9 L Hct 35.6 L MCV 82.1 MCH 27.4 MCHC 33.4 RDW 15.3 H Plt Count 156 Neut % (Auto) 65.0 Lymph % (Auto) 18.1 L [place] % (Auto) 10.6 Eos % (Auto) 5.6 H Baso % (Auto) 0.7 Neut # (Auto) 3300 PT 35.0 H D INR 3.2 H Sodium 140 Potassium 4.4 Chloride 111 H Carbon Dioxide 21 L BUN 28 H Creatinine 0.70 Estimated GFR > 60.0 BUN/Creatinine Ratio 40.0 H Glucose 90 Calcium 8.5 Fluid Amylase 09/07/18 08:07 WBC RBC Hgb Hct MCV MCH MCHC RDW Plt Count Neut % (Auto) Lymph % (Auto) [place] % (Auto) Eos % (Auto) Baso % (Auto) Neut # (Auto) PT INR Sodium Potassium Chloride Carbon Dioxide BUN Creatinine Estimated GFR BUN/Creatinine Ratio Glucose Calcium Fluid Amylase 65 Assessment & Plan Plan: Assessment/Plan Narrative: 78-year-old male status post open cholecystectomy and common duct exploration complicated by postoperative stroke now with ongoing anorexia and severe protein calorie malnutrition. The amylase level in his drain output is normal consistent with plasma only. No evidence of pancreatic leak. I will clamp his T -tube today and monitor his progress. Repeat liver function tests in 2 or 3 days. I believe he can tolerate this as the stone was not obstructing. Eventually he will require ERCP for stone extraction which is tentatively scheduled for October 02, 2018. I will continue to hold his anti-platelet and anticoagulation therapy in preparation for possible PEG tube. I discussed this with the patient again in detail. I believe he would benefit from nutritional support via tube feedings for some period of time as well as rehabilitation in the skilled nurse facility following discharge. I anticipate it will take another 2 days or so for his INR to return to normal. Tomorrow I will check a CT scan of the abdomen and pelvis with contrast now that his renal function is back to baseline. I discussed this with Dr. Abbott and we agree that chances of acute renal injury with CT scan is very small now that he has been adequately resuscitated. CT scan will assess for possible pseudocyst or other issues with the tail of the pancreas that might be contributing to the patient's symptoms as well. I doubt necrosis or significant phlegmon or abscess is he has no indications of such on clinical or laboratory examination. If all the above findings do not show any acute issue then we will plan PEG tube this admission once his INR has normalized. Patient was agreeable to the plan. Orders were written. Quality VTE Deep Vein Thrombosis/Pulmonary Embolism Present on Admission: No
--- NOTE | 2018-09-07 18:44 | PC.NURSE ---
1845: Patient is alert and oriented; resting comfortably. Pain is 1/10. Reflux is causing him distress this evening; administered Tums. Ate 0% of dinner, but drank entire Boost shake this afternoon. Removed and washed Gaudencio hose, hanging to dry next to sink. Used Doppler to find pedal pulses; strong bilateral pulses; marked locations with sharpie. Applied lotion to lower legs and tops of feet. Replaced anti-slip socks. Patient is noticeably stronger today; able to boost self in bed. Left patient with bed in lowest position, wheels locked, side rails in place.
--- NOTE | 2018-09-07 18:49 | PC.NURSE ---
Pt awake and alert lying in bed watching television. Admits to heartburn, but noted pt is moving downward in bed. Shifts own weight independently and repositions self. Does report greater strength each day. Poor po intake. T-tube remains clamped as per Dr. Lamb. KENDRA compressed with no output. Dressing to abdomen is dry and intact. Diminished, but clear breath sounds. Occasional hiccup.
[2018-09-07] MEDS: ATORVASTATIN 20 MG TABLET 40 MG PO (21:04)
[2018-09-07] MEDS: ONDANSETRON 4 MG/2 ML INJ IV (21:04)
[2018-09-07] MEDS: SODIUM CHLORIDE 0.9% FLUSH 10 ML IV (21:05)
[2018-09-08] VITALS (9 sets, daily range): BP systolic 104–157; BP diastolic 55–71; PULSE 73–87; RESP 16–18; TEMP 36.2–36.7; O2SAT 95–98
--- NOTE | 2018-09-08 | DI.CT.S_ITS ---
PROCEDURE: CT ABDOMEN PELVIS W CON INDICATIONS: anorexia, pancreatitis, possible pseudocyst/ necrosis TECHNIQUE: After the administration of oral and intravenous contrast, 5 mm thick sections acquired from the diaphragms to the symphysis. 5 mm thick coronal and sagittal reformats were performed. For radiation dose reduction, the following was used: automated exposure control, adjustment of mA and/or kV according to patient size. COMPARISON: [facility], CT, CT CHEST ABD PEL W CON, 08/05/2018, 18:03. FINDINGS: Image quality: Excellent. ABDOMEN: Lung bases: Emphysematous changes are seen at the lung bases. Likely scarring versus atelectasis can be seen in the dependent posterior left lower lobe. The heart size is normal. No pericardial effusion is detected. Solid organs: Liver is normal in size and enhancement. Gallbladder is not seen. A biliary T-tube can be seen. In this patient with this given history, scrutiny is given to the pancreas. There is a stone seen within the mid body of the pancreas, as on series 2 image 24 that measures 1 cm in there is associated dilatation of the pancreatic duct within the tail of pancreas measuring 6 mm. No significant peripancreatic inflammatory changes are detected. No seda pancreatic necrosis can be seen. No pseudocysts are seen adjacent to the pancreas. Spleen is normal in size and enhancement. There is generalized cerebral and thickening seen, yet without adrenal nodules. Kidneys are normal in size and enhancement, without hydronephrosis. Peritoneum and bowel: There is a right upper quadrant drain seen. There is thickening seen of the proximal gastric wall, as before. The small bowel, and colon loops are normal in caliber and wall thickness. No free fluid or air. Diverticulosis is seen, without findings of active diverticulitis. Nodes and vessels: No retroperitoneal or mesenteric adenopathy. Aorta and inferior vena cava are normal in caliber. Atherosclerotic calcification is noted. Miscellaneous: No ventral hernias. PELVIS: Genitourinary: Bladder wall thickness is normal. The prostate gland is prominent measuring 5.8 cm transversely. Miscellaneous: No enlarged inguinal or pelvic lymph nodes are seen. There is a fat-containing right inguinal hernia seen. Bones: No suspicious bony lesions. No vertebral body compression fractures. Age-appropriate bony degenerative changes are seen. IMPRESSION: Pancreatic duct stone with pancreatic ductal dilatation. No significant peripancreatic inflammatory changes are seen. No findings of pancreatic necrosis or pseudocyst formation can be seen. Cholecystectomy with biliary T-tube. Right upper quadrant drain seen. Proximal gastric wall thickening again seen. The previously seen right inguinal hernia now contains only fat. Incidental note is made of: Emphysematous changes Atherosclerotic calcification Diverticulosis is seen, without findings of active diverticulitis. Prominent prostate Dictated by: Liang Morales M.D. on 09/08/2018 at 8:50 Approved by: Liang Morales M.D. on 09/08/2018 at 8:59
--- NOTE | 2018-09-08 04:17 | PC.NURSE ---
Pt is And O x 4, VSS. He appears weak, lethargic and slept all of noc shift. He did void clear dark yellow. Diminished BT, exp wheezes bilat, S1, S2, faint. Denies pain and nausea.
[2018-09-08 05:45] LABS: Add Manual Diff / Slide Review NO; Basophils Percent Auto 0.4 % (0-2); Eosinophils Percent Auto 5.5 % (2-4); Hemoglobin 11.8 g/dL (13.5-17.5); Lymphocytes Percent Auto 16.9 % (25-40); Mean Corpuscular HGB Conc 33.7 % (30-36); Mean Corpuscular Hemoglobin 27.4 PG (26-34); Mean Corpuscular Volume 81.2 fL (80-100); Monocytes Percent Auto 10.1 % (3-14); Neutrophils Absolute Auto 3700 /uL (3000-5900); Neutrophils Percent Auto 67.1 % (50-75); Platelet Count 142 X10^3/uL (150-400); Red Blood Cell Count 4.31 X10^6/uL (4.5-5.9); Red Cell Distribution Width 15.1 % (11.6-14.8); White Blood Cell Count 5.5 X10^3/uL (4.5-11.0)
[2018-09-08 05:46] LABS: INR 1.9 (0.9-1.3); Prothrombin Time 20.6 SECONDS (10.1-12.7)
[2018-09-08 05:55] LABS: BUN Creatinine Ratio 33.3 (6-22); Blood Urea Nitrogen 20 mg/dL (9-20); Calcium 8.5 mg/dL (8.4-10.2); Carbon Dioxide 22 mmol/L (22-32); Chloride 110 mmol/L (98-107); Estimated Glomerular Filt Rate > 60.0 mL/min (>60); Glucose 93 mg/dL (80-110); HEMOLYSIS < 15 (0-50); Potassium 4.1 mmol/L (3.4-5.1); Sodium 140 mmol/L (137-145)
[2018-09-08] MEDS: SODIUM CHLORIDE 0.9% FLUSH 10 ML IV ×2 (10:13→21:12)
[2018-09-08] MEDS: ENOXAPARIN 40 MG/0.4 ML SYRINGE SUBCUT (10:13)
--- NOTE | 2018-09-08 11:37 | PT.IPTN ---
Current Diagnoses Unspecified severe protein-calorie malnutrition (09/05/18) Dehydration (09/05/18) Hypo-osmolality and hyponatremia (09/05/18) Unspecified atrial fibrillation (09/05/18) Calculus of bile duct without cholangitis or cholecystitis without obstruction (09/05/18) Acute kidney failure, unspecified (09/05/18) Weakness (09/05/18) Abnormal findings on diagnostic imaging of other parts of digestive tract (09/05/18) Physical Therapy Treatment Note M2 PT-IP Current Condition Start: 09/05/18 14:29 Freq: NEEDED Status: Active Protocol: Document 09/08/18 11:25 NFW (Rec: 09/08/18 11:37 NFW [id number]) Physical Therapy Current Condition Current Condition Evaluation Date 09/05/18 Treatment Diagnosis Generalized weakness Onset Date 09/05/18 Precautions Abdominal Surgery Precautions Log Roll Lifting Restrictions Gait Belt above Incisional Area Other Precautions KENDRA drain, T-tube R lower quadrant M3 PT-IP Subjective Start: 09/05/18 14:29 Freq: NEEDED Status: Active Protocol: Document 09/08/18 11:25 NFW (Rec: 09/08/18 11:37 NFW [id number]) Subjective Physical Therapy Visit Type Type Treatment Note Visit Start Time 11:00 Visit Stop Time 11:25 Total Visit Minutes 25 Number of PROCESSING INSPECTOR Visits 0 Physical Therapy Visit Comments Patient Comments Pt feeling good today and ready to move. M4 PT-IP Mobility and Gait Start: 09/05/18 14:29 Freq: NEEDED Status: Active Protocol: Document 09/08/18 11:25 NFW (Rec: 09/08/18 11:37 NFW [id number]) PT-Bed Mobility Assessment Rolling Type of Rolling Roll to Left Level of Assist Contact Guard Assistance Supine to Sit Supine to Sit Contact Guard Assistance Sit to Supine Sit to Supine Standby Assistance Scooting Scooting to Edge of Bed Contact Guard Assistance Scooting Up and Down in Bed Contact Guard Assistance PT-Transfer Assessment Sit to and From Stand Sit to and from Stand Contact Guard Assistance Equipment Transfer Assistive Device Gait Belt Front Wheeled Walker Transfers Transfer Destination Bed Chair Transfer Ability Level of Assist Contact Guard Assistance Comments Mobility Comments Patient able to perform bed mobility activites with bed flat. Gait Assessment Gait Gait Assistance Required: Contact Guard Assist 1 Person Assist Distance (Feet) 200 Able to Maintain Weight Bearing Status Yes During Gait Assistive Devices Assistive Device Gait Belt Front Wheeled Walker Orthotic/Prosthetic Devices or Brace: No Gait Deviations General Gait Pattern Flexed Trunk Narrow Based Gait Factors Limiting Gait Function Factors Limiting Gait Function Decreased Activity Tolerance Decreased Strength Incoordination PT-Balance Assessment Comments Other Balance Tests/Deviations/Treatment Seated marches, ankle pumps, : knee flex/ext. Standing at FWW with marches, alt overhead reach, rhythmic stabilization at shoulders then torso. M5 PT-IP Objective Assessments Start: 09/05/18 14:29 Freq: NEEDED Status: Active Protocol: Document 09/05/18 13:49 (Rec: 09/05/18 14:46 [id number]) Orientation Orientation/Cognition Level of Alertness Alert Orientation Name Age Birthday Month Date Year Day of Week Place Situation Safety Awareness Decreased Safety Awareness Gross Range of Motion Lower Extremity ROM Assessment Within Functional Limits Strength Lower Extremity Strength Assessment Bilaterally Impaired Comments Strength Comments BLE 4/5 grossly. M6 PT-IP Treatment Start: 09/05/18 14:29 Freq: NEEDED Status: Active Protocol: Document 09/08/18 11:25 NFW (Rec: 09/08/18 11:37 NF [id number]) Physical Therapy Treatment Exercises Exercises Ankle Pumps Quad Sets Seated Knee Flexion/Extension Education Education Provided Safety M7 PT-IP Assessment and Plan Start: 09/05/18 14:29 Freq: NEEDED Status: Active Protocol: Document 09/08/18 11:25 NFW (Rec: 09/08/18 11:37 NF [id number]) PT Summary Assessment and Plan Frequency of Treatment Frequency Of Treatment Once a Day Recommendations To Nursing Amount of Assist Needed 1 Person Assist Discharge Recommendations PT Discharge Recommendations SNF Rehab
--- NOTE | 2018-09-08 14:57 | PM.PN.1 ---
Subjective Date Patient Seen: 09/08/18 Interval history: Patient eating a little bit better, more energy, walked around nurse's station a couple times. Exam Vital Signs (past 8 hours): - 09/08/18 07:00 09/08/18 10:00 Temperature 97.3 F L Pulse Rate 77 Respiratory Rate 18 Blood Pressure 141/55 H Pulse Oximetry 98 98 Oxygen Delivery Method Room Air Oxygen Flow Rate 0 Narrative Exam Narrative: General: Alert, pleasant and cooperative Lungs: Breathing nonlabored Neurological: Fully oriented, speech intact, Right-sided strength 5/5, left arm strength 5/5, left leg strength 3/5 Objective Labs Result Diagrams: 09/08/18 05:07 09/08/18 05:07 Labs: Laboratory Results - last 24 hr 09/08/18 09/08/18 09/08/18 05:07 05:07 05:07 WBC 5.5 RBC 4.31 L Hgb 11.8 L Hct 35.0 L MCV 81.2 MCH 27.4 MCHC 33.7 RDW 15.1 H Plt Count 142 L Neut % (Auto) 67.1 Lymph % (Auto) 16.9 L [place] % (Auto) 10.1 Eos % (Auto) 5.5 H Baso % (Auto) 0.4 Neut # (Auto) 3700 PT 20.6 H D INR 1.9 H Sodium 140 Potassium 4.1 Chloride 110 H Carbon Dioxide 22 BUN 20 Creatinine 0.60 L Estimated GFR > 60.0 BUN/Creatinine Ratio 33.3 H Glucose 93 Calcium 8.5 Assessment & Plan Plan: Assessment/Plan Narrative: 1. Severe protein calorie malnutrition: Plans are for PEG tube placement on TuesdaySeptember 11. 2. Acute kidney injury, pre renal due to dehydration: Resolved. 3. Recent CVA with left leg paresis: Able to use walker, neurologically stable, he has severe carotid stenosis, he has atrial fibrillation. Warfarin and clopidogrel on hold for PEG tube placement. Continue atorvastatin. 4. Hypertension: Resume his metoprolol 50 mg twice daily. Lisinopril was held due to acute renal failure. Probably can restart prior to discharge at half the previous dose. 5. Chronic atrial fibrillation with RVR: As noted warfarin on hold but can be restarted after PEG placement. Continue metoprolol for rate control. 6. Common bile duct stone, status post recent open cholecystectomy and CBD exploration: His T-tube was clamped by surgery. CT scan of abdomen okay. He is tentatively scheduled for ERCP on 10/02/2018. Dr. Tato Lamb coordinating. 7. Disposition: Awaiting PEG tube placement and then plan for discharge to [facility] for rehab. Quality VTE Deep Vein Thrombosis/Pulmonary Embolism Present on Admission: No
--- NOTE | 2018-09-08 15:03 | P.PN_ITS ---
Subjective Date Patient Seen: 09/08/18 Interval history: Patient eating a little bit better, more energy, walked around nurse's station a couple times. Exam Vital Signs (past 8 hours): - 09/08/18 07:00 09/08/18 10:00 Temperature 97.3 F L Pulse Rate 77 Respiratory Rate 18 Blood Pressure 141/55 H Pulse Oximetry 98 98 Oxygen Delivery Method Room Air Oxygen Flow Rate 0 Narrative Exam Narrative: General: Alert, pleasant and cooperative Lungs: Breathing nonlabored Neurological: Fully oriented, speech intact, Right-sided strength 5/5, left arm strength 5/5, left leg strength 3/5 Objective Labs Result Diagrams: 09/08/18 05:07 09/08/18 05:07 Labs: Laboratory Results - last 24 hr 09/08/18 09/08/18 09/08/18 05:07 05:07 05:07 WBC 5.5 RBC 4.31 L Hgb 11.8 L Hct 35.0 L MCV 81.2 MCH 27.4 MCHC 33.7 RDW 15.1 H Plt Count 142 L Neut % (Auto) 67.1 Lymph % (Auto) 16.9 L [place] % (Auto) 10.1 Eos % (Auto) 5.5 H Baso % (Auto) 0.4 Neut # (Auto) 3700 PT 20.6 H D INR 1.9 H Sodium 140 Potassium 4.1 Chloride 110 H Carbon Dioxide 22 BUN 20 Creatinine 0.60 L Estimated GFR > 60.0 BUN/Creatinine Ratio 33.3 H Glucose 93 Calcium 8.5 Assessment & Plan Plan: Assessment/Plan Narrative: 1. Severe protein calorie malnutrition: Plans are for PEG tube placement on TuesdaySeptember 11. 2. Acute kidney injury, pre renal due to dehydration: Resolved. 3. Recent CVA with left leg paresis: Able to use walker, neurologically stable , he has severe carotid stenosis, he has atrial fibrillation. Warfarin and clopidogrel on hold for PEG tube placement. Continue atorvastatin. 4. Hypertension: Resume his metoprolol 50 mg twice daily. Lisinopril was held due to acute renal failure. Probably can restart prior to discharge at half the previous dose. 5. Chronic atrial fibrillation with RVR: As noted warfarin on hold but can be restarted after PEG placement. Continue metoprolol for rate control. 6. Common bile duct stone, status post recent open cholecystectomy and CBD exploration: His T-tube was clamped by surgery. CT scan of abdomen okay. He is tentatively scheduled for ERCP on 10/02/2018. Dr. Tato Lamb coordinating. 7. Disposition: Awaiting PEG tube placement and then plan for discharge to [facility] for rehab. Quality VTE Deep Vein Thrombosis/Pulmonary Embolism Present on Admission: No
--- NOTE | 2018-09-08 16:50 | OT.IP.TRT ---
Current Diagnoses Unspecified severe protein-calorie malnutrition (09/05/18) Dehydration (09/05/18) Hypo-osmolality and hyponatremia (09/05/18) Unspecified atrial fibrillation (09/05/18) Calculus of bile duct without cholangitis or cholecystitis without obstruction (09/05/18) Acute kidney failure, unspecified (09/05/18) Weakness (09/05/18) Abnormal findings on diagnostic imaging of other parts of digestive tract (09/05/18) Occupational Therapy Treatment Note M2 OT-IP Current Condition Start: 09/06/18 15:54 Freq: Status: Active Protocol: Document 09/06/18 11:29 PJM (Rec: 09/06/18 16:16 PJM [id number]) Occupational Therapy Current Condition Current Condition Evaluation Date 08/23/18 Treatment Diagnosis weakness, dehydration,/poor nutritional, Stroke 08/23/18 w /LLE weakness Diagnosis Onset Date 09/04/18 Post Operative Precautions Abdominal Surgery Precautions Log Roll Lifting Restrictions Gait Belt above Incisional Area Other Precautions KENDRA drain, T-tube R lower quadrant M3 OT- IP Subjective and Pain Start: 09/06/18 15:54 Freq: Status: Active Protocol: Document 09/08/18 16:10 [facility] (Rec: 09/08/18 16:49 [facility] [id number]) OT- Subjective Occupational Therapy Visit Type Type Treatment Note Visit Start Time 16:10 Visit Stop Time 16:30 Total Visit Minutes 20 Occupational Therapy Visit Comments Patient Comments Pt not wanting to get up at this time but agreeable to do cognitive assessment. Protocol: Document 09/06/18 11:29 PJM (Rec: 09/06/18 16:16 PJ [id number]) OT-Instrumental Activities of Daily Living Deficits IADL Deficits Identified Deficits Home Safety Awareness Awareness of Need for Assistance at Home Good Awareness Medication Management Medication Management Caregiver Provides Supervision Money Management Money Management Caregiver Provides Supervision Meal Preparation Meal Preparation Caregiver Provides Assist Manager Supply Chain Manager Supply Chain Caregiver Provides Assist Driving Driving Caregiver Provides Assist M6 OT- IP Functional Cognition Start: 09/06/18 15:54 Freq: Status: Active Protocol: Document 09/08/18 16:10 [facility] (Rec: 09/08/18 16:49 [facility] [id number]) Cognitive Factors Limiting Selfcare Function Cognitive Ability Level of Alertness Alert Patient Orientation Name Date Year Day of Week Place Situation Attention Span Ability Capable of Focused Attention Capable of Sustained Attention Ability to Follow Commands Able to Follow Multi-Step Commands Memory Description Short Term Impaired Working Impaired Cognitive Tests SLUMS Pt scored 24/30 which implies mild cognitive deficits, pt scored 20/30 on 08/23/18 with CUSTOMER SERVICE PROFESSIONAL. Pt realizes has decreased memory and has to write things down. In addition pt's does all the finances at home. OT- Vision and Hearing OT- Hearing Assessment OT- Hearing Assessment WFL OT- Vision Assessment Visual Acuity WFL Glasses All The Time M7 OT- IP Mobility and Balance Start: 09/06/18 15:54 Freq: Status: Active Protocol: Document 09/07/18 15:15 PJ (Rec: 09/07/18 18:25 PJ [id number]) OT- Bed Mobility Assessment Rolling Type of Rolling Roll to Left Level of Assistance Contact Guard Assistance 1 Person Assistance Head of Bed Elevated Bedrails Supine to Sit Supine to Sit Assist Standby Assistance 1 Person Assistance Head of Bed Elevated Bedrails Scooting Scooting to Edge of Bed Standby Assistance OT-Transfer Assessment Sit to and From Stand Sit to and from Stand Contact Guard Assistance 1 Person Assistance Transfers Transfer Ability Contact Guard Assistance 1 Person Assistance Technique Transfer Destination Chair Transfer Technique Stand Step Pivot Devices Transfer Assistive Devices Gait Belt Front Wheeled Walker Comments Mobility Comments No buckling of knees noted with transfer. OT- Balance Assessment Sitting Balance and Reactions Static Sitting Balance Ability Good Dynamic Sitting Balance Ability Fair Standing Balance and Reactions Static Standing Balance Ability Good Dynamic Standing Balance Ability Fair Comments Other Balance Tests/Deviations/Treatment Pt able to stand at sink with : recliner directly behind him for 2 min x2 including 15 -20 steps of marching ion place each time and seated rest break in between standing trials. No buckling of knees noted but L knee tends to hyperextend slightly in standing. M8 OT- IP Objective Assessments Start: 09/06/18 15:54 Freq: Status: Active Protocol: Document 09/06/18 11:29 PJM (Rec: 09/06/18 16:16 PJ [id number]) OT Gross Range of Motion Upper Extremity Range of Motion Assessment Within Functional Limits OT Strength Upper Extremity Strength Assessment Within Functional Limits Hand Collection Card Clerk Strength Hand Dominance Right Comments Strength Comments No focal weakness noted except L shoulder 4+/5 OT- Coordination Assessment Comments Coordination Comments WFL BUE during self care tasks including opening packages OT-Muscle Tone Assessment Muscle Tone WNL Yes OT Sensation Assessment Comments Summary Comments Pt denies sensory deficits in BUES Edema Edema Absent Edema Comments Pt ahs BLE knee high LANDON hose in place that have decreased BLE edema per . M9 OT- IP Assessment and Plan Start: 09/06/18 15:54 Freq: Status: Active Protocol: Document 09/07/18 15:15 PJM (Rec: 09/07/18 18:25 PJM [id number]) OT Summary Assessment and Plan Summary OT Impairments Strength Balance Functional Mobility Grooming Dressing Toileting Bathing Toilet Transfers Shower Transfers Assessment Summary Pt remains very fearful of falling and needs significant encouragement to mobilize out of bed. Pt able to complete bed mobility using bed features with min to SBA assist and did successful stand pivot transfer to chair with CGA of 1 and no knee buckling this session. Pt also tolerated 2 standing/marching trials at sink with chair directly behind to increase confidence. L LE weakness with some knee hyperextension noted in standing. Will try standing at sink for grooming tomorrow to increase strength, balance and activity tolerance. Goals Grooming Goal Standby Assistance Dressing Goal Minimal Assistance Toileting Goal Minimal Assistance Bathing Goal Moderate Assistance Grab Bars Hand Held Shower Sprayer Long Handled Sponge or [place] Toilet Transfer Goal Minimal Assistance Shower Transfer Goal Minimal Assistance Patient/Caregiver Education Goal Demonstrate Energy Conservation and Pacing OT-Other Goals Grooming to be done sitting at sink or in chair. Days to Meet Goals 9 Frequency of Treatment Frequency Of Treatment Once a Day Treatment Plan OT Treatment Plan ADL Training Functional Mobility Patient/Family Education Discharge Planning Discharge Recommendations OT Discharge Recommendations SNF Rehab Home Equipment Needs to be determined in next rehab setting
--- NOTE | 2018-09-08 18:05 | PC.NURSE ---
Addendum entered by Alisha Lyles R.N. 09/08/18 22:18: Pt reports sudden onset sharp abdominal pain 7/10 diffuse to lower abdomen. This technical writer medicated pt with one vicodin as per emar. Pt reports pain subsiding as quickly as it originated. Now resting quietly in bed with eyes closed without signs of distress or discomfort. Reports passing flatus. Original Note: Pt awake and alert in bed. Has had neighbors visit this evening shift. Taking diet well. Denies pain, nausea or heartburn. Dr. Hester in to see patient and informs pt if continues to take diet will not need PEG tube. Dressing to abdomen reinforced with paper tape. T-tube clamped as per Dr. Lamb, KENDRA compressed with scant serous drainage. Soft abdomen and positive bowel tones. BL lloyd hose replaced. Encouraged to call for needs.
--- NOTE | 2018-09-08 20:12 | P.PN_ITS ---
Exam Vital Signs (past 8 hours): - 09/08/18 13:05 09/08/18 15:30 Temperature 98.1 F 97.5 F L Pulse Rate 79 74 Respiratory Rate 18 16 Blood Pressure 104/62 137/59 L Pulse Oximetry 98 97 Oxygen Delivery Method Room Air Oxygen Flow Rate 0 Narrative Exam Narrative: Co operative in no apparent distress. His lungs are clear. Distant breath tones but actually moving air all the way through the bases. Heart regular rate and rhythm without murmur gallop. Abdomen is soft nontender without mass. Right subcostal incision well healed. No signs of bile peritonitis. No jaundice. Objective Labs Result Diagrams: 09/08/18 05:07 09/08/18 05:07 Labs: Laboratory Results - last 24 hr 09/08/18 09/08/18 09/08/18 05:07 05:07 05:07 WBC 5.5 RBC 4.31 L Hgb 11.8 L Hct 35.0 L MCV 81.2 MCH 27.4 MCHC 33.7 RDW 15.1 H Plt Count 142 L Neut % (Auto) 67.1 Lymph % (Auto) 16.[address] [place] % (Auto) 10.1 Eos % (Auto) 5.5 H Baso % (Auto) 0.4 Neut # (Auto) 3700 PT 20.6 H D INR 1.9 H Sodium 140 Potassium 4.1 Chloride 110 H Carbon Dioxide 22 BUN 20 Creatinine 0.60 L Estimated GFR > 60.0 BUN/Creatinine Ratio 33.3 H Glucose 93 Calcium 8.5 Assessment & Plan Post-op Postoperative Postoperative status narrative: The patient is trying to eat a little better. That would certainly help everything. He is not scheduled for an ERCP till September. If he tolerates the clamping of his tube then that will be good. Postoperative plan narrative: Continue supportive care. May need may need a PEG done on Tuesday. We will see how his diet progresses. Quality VTE Deep Vein Thrombosis/Pulmonary Embolism Present on Admission: No
[2018-09-08] MEDS: HYDROCODONE/ACET 5/325 TABLET 1 TAB PO (21:11)
[2018-09-08] MEDS: METOPROLOL IR 50 MG TABLET PO (21:12)
[2018-09-08] MEDS: ATORVASTATIN 20 MG TABLET 40 MG PO (21:12)
[2018-09-09] VITALS (10 sets, daily range): BP systolic 126–169; BP diastolic 58–66; PULSE 61–80; RESP 16–19; TEMP 36.4–36.7; O2SAT 95–98
--- NOTE | 2018-09-09 04:22 | PC.NURSE ---
Pt VSS and A and O x 4, slightly forgetful this shift. Denies pain and nausea. Did not eat anything had sips of water. LS clear, diminished, S1, S2, + BTs, flatus. Able to sleep.
[2018-09-09 05:23] LABS: INR 1.4 (0.9-1.3); Prothrombin Time 15.7 SECONDS (10.1-12.7)
[2018-09-09] MEDS: SODIUM CHLORIDE 0.9% FLUSH 10 ML IV ×3 (08:08→20:46)
[2018-09-09] MEDS: ENOXAPARIN 40 MG/0.4 ML SYRINGE SUBCUT (08:08)
[2018-09-09] MEDS: METOPROLOL IR 50 MG TABLET PO ×2 (08:09→20:46)
--- NOTE | 2018-09-09 10:48 | PT.IPTN ---
Current Diagnoses Unspecified severe protein-calorie malnutrition (09/05/18) Dehydration (09/05/18) Hypo-osmolality and hyponatremia (09/05/18) Unspecified atrial fibrillation (09/05/18) Calculus of bile duct without cholangitis or cholecystitis without obstruction (09/05/18) Acute kidney failure, unspecified (09/05/18) Weakness (09/05/18) Abnormal findings on diagnostic imaging of other parts of digestive tract (09/05/18) Physical Therapy Treatment Note M2 PT-IP Current Condition Start: 09/05/18 14:29 Freq: NEEDED Status: Active Protocol: Document 09/08/18 11:25 NFW (Rec: 09/08/18 11:37 NFW [id number]) Physical Therapy Current Condition Current Condition Evaluation Date 09/05/18 Treatment Diagnosis Generalized weakness Onset Date 09/05/18 Precautions Abdominal Surgery Precautions Log Roll Lifting Restrictions Gait Belt above Incisional Area Other Precautions KENDRA drain, T-tube R lower quadrant M3 PT-IP Subjective Start: 09/05/18 14:29 Freq: NEEDED Status: Active Protocol: Document 09/09/18 10:48 AB (Rec: 09/09/18 11:14 AB [id number]) Subjective Physical Therapy Visit Type Type Treatment Note Visit Start Time 10:48 Visit Stop Time 11:03 Total Visit Minutes 15 Number of WELL SITE DRILLING ENGINEER Visits 0 Physical Therapy Visit Comments Patient Comments pt agreeable to do PT Therapy Pain Assessment Pain Present Pain Present Denied Pain M4 PT-IP Mobility and Gait Start: 09/05/18 14:29 Freq: NEEDED Status: Active Protocol: Document 09/09/18 10:48 AB (Rec: 09/09/18 11:14 AB [id number]) PT-Bed Mobility Assessment Supine to Sit Supine to Sit Independent Sit to Supine Sit to Supine Independent Scooting Scooting to Edge of Bed Independent PT-Transfer Assessment Sit to and From Stand Sit to and from Stand Standby Assistance Equipment Transfer Assistive Device Gait Belt Front Wheeled Walker Gait Assessment Gait Gait Assistance Required: Standby Assistance Distance (Feet) 275 Able to Maintain Weight Bearing Status Yes During Gait Assistive Devices Assistive Device Gait Belt Front Wheeled Walker Orthotic/Prosthetic Devices or Brace: No Gait Deviations General Gait Pattern Antalgic Factors Limiting Gait Function Factors Limiting Gait Function Decreased Activity Tolerance Decreased Strength Poor Balance M5 PT-IP Objective Assessments Start: 09/05/18 14:29 Freq: NEEDED Status: Active Protocol: Document 09/05/18 13:49 (Rec: 09/05/18 14:46 [id number]) Orientation Orientation/Cognition Level of Alertness Alert Orientation Name Age Birthday Month Date Year Day of Week Place Situation Safety Awareness Decreased Safety Awareness Gross Range of Motion Lower Extremity ROM Assessment Within Functional Limits Strength Lower Extremity Strength Assessment Bilaterally Impaired Comments Strength Comments BLE 4/5 grossly. M6 PT-IP Treatment Start: 09/05/18 14:29 Freq: NEEDED Status: Active Protocol: Document 09/08/18 11:25 NFW (Rec: 09/08/18 11:37 NFW [id number]) Physical Therapy Treatment Exercises Exercises Ankle Pumps Quad Sets Seated Knee Flexion/Extension Education Education Provided Safety M7 PT-IP Assessment and Plan Start: 09/05/18 14:29 Freq: NEEDED Status: Active Protocol: Document 09/09/18 10:48 AB (Rec: 09/09/18 11:14 AB [id number]) PT Summary Assessment and Plan Potential Rehabilitation Potential Good Summary Impairments Strength Balance Gait Activity Tolerance Progress Towards Goals Progressing Toward Goals Assessment Summary pt requiring SBA with mobility using FWW. will progress to 4WW next tx session when appropriate. pt will need assist at home and d/c plan depending on available assistance at home. Goals Transfer Goal Independent Four Wheeled Walker Gait Goal Independent Four Wheel Walker Gait Distance 300 Days to Meet Goals 5 Frequency of Treatment Frequency Of Treatment Once a Day Treatment Plan Physical Therapy Treatment Plan Bed Mobility Training Transfer Training Gait Training Therapeutic Exercise Balance Retraining Discharge Planning Hot or Cold Pack Neuromuscular Re-ed Coordination Retraining Manual Therapy Recommendations To Nursing Amount of Assist Needed 1 Person Assist Discharge Recommendations PT Discharge Recommendations Home with Assistance SNF Rehab Outpatient PT Other Discharge Recommendations home with assist/outpt PT vs SNF
--- NOTE | 2018-09-09 10:57 | PM.PN.1 ---
Exam Vital Signs (past 8 hours): - 09/09/18 05:54 09/09/18 08:44 Temperature 98.0 F 98 F Pulse Rate 74 78 Respiratory Rate 16 18 Blood Pressure 136/63 126/60 Pulse Oximetry 98 98 Oxygen Delivery Method Room Air Oxygen Flow Rate 0 Objective Labs Result Diagrams: 09/08/18 05:07 09/08/18 05:07 Labs: Laboratory Results - last 24 hr 09/09/18 05:07 PT 15.7 H INR 1.4 H Quality VTE Deep Vein Thrombosis/Pulmonary Embolism Present on Admission: No
--- NOTE | 2018-09-09 13:35 | P.PN_ITS ---
Subjective Date Patient Seen: 09/09/18 Interval history: He is seen here today to follow-up his malnourishment, bile duct stone with T-tube drain, chronic atrial fibrillation, recent stroke and weakness. He is pending a PEG tube placement in 2 days. He says he ate his whole breakfast today and hopes to avoid getting the PEG tube. The INR is 1.4. Over night, he says that the pain flared in his abdomen briefly. The T-tube appears to still be draining. Exam Vital Signs (past 8 hours): - 09/09/18 05:54 09/09/18 08:44 09/09/18 11:08 Temperature 98.0 F 98 F Pulse Rate 74 78 Respiratory Rate 16 18 Blood Pressure 136/63 126/60 Pulse Oximetry 98 98 95 09/09/18 12:00 Temperature 98.1 F Pulse Rate 64 Respiratory Rate 19 Blood Pressure 148/63 H Pulse Oximetry 95 Oxygen Delivery Method Room Air Oxygen Flow Rate 0 Narrative Exam Narrative: Alert and oriented x3. He does not look any more malnourished or less malnourished than I recall him from my last interaction with him about 3 weeks ago. The T tube is in place on the right side of the abdomen which is scaphoid and nontender. The heart is regular rate and rhythm without murmur. Lungs are clear to auscultation bilaterally. Extremities have no ankle edema. Objective Labs Result Diagrams: 09/08/18 05:07 09/08/18 05:07 Labs: Laboratory Results - last 24 hr 09/09/18 05:07 PT 15.7 H INR 1.4 H Assessment & Plan Plan: Assessment/Plan Narrative: 1. Severe protein calorie malnutrition: Plans continue to be PEG tube placement on TuesdaySeptember 11. He says he is eating better and hoping to recover that way? 2. Acute kidney injury, pre renal due to dehydration: Resolved. 3. Recent CVA with left leg paresis: Able to use walker, neurologically stable , he has severe carotid stenosis, he has atrial fibrillation. Warfarin and clopidogrel on hold for PEG tube placement. Continue atorvastatin. 4. Hypertension: Now on metoprolol 50 mg twice daily. Lisinopril was held due to acute renal failure. Probably can restart prior to discharge at half the previous dose. 5. Chronic atrial fibrillation with RVR: As noted warfarin on hold but can be restarted after PEG placement. Continue metoprolol for rate control. 6. Common bile duct stone, status post recent open cholecystectomy and CBD exploration: His T-tube was clamped by surgery. CT scan of abdomen okay. He is tentatively scheduled for ERCP on 10/02/2018. Dr. Tato Lamb coordinating. 7. Disposition: Awaiting PEG tube placement and then plan for discharge to [facility] for rehab. Quality VTE Deep Vein Thrombosis/Pulmonary Embolism Present on Admission: No
--- NOTE | 2018-09-09 17:05 | P.PN_ITS ---
Subjective Date Patient Seen: 09/09/18 Time Patient Seen: 14:03 Interval history: Patient had an episode of severe mid abdominal pain relieved with pain medication. It is not return. He is not having any nausea and has had a bowel movement. He is eating much better. Eight all of his breakfast in all of his lunch according to nursing. Exam Vital Signs (past 8 hours): - 09/09/18 11:08 09/09/18 12:00 09/09/18 15:50 Temperature 98.1 F 97.5 F L Pulse Rate 64 70 Respiratory Rate 19 16 Blood Pressure 148/63 H 133/58 L Pulse Oximetry 95 95 98 09/09/18 16:40 Temperature Pulse Rate Respiratory Rate Blood Pressure Pulse Oximetry 98 Oxygen Delivery Method Room Air Oxygen Flow Rate 0 Narrative Exam Narrative: Lungs are clear to auscultation no rales or rhonchi heart regular rate and rhythm no murmur gallop abdomen is soft no unusual tenderness. No evidence of jaundice. Objective Labs Result Diagrams: 09/08/18 05:07 09/08/18 05:07 Labs: Laboratory Results - last 24 hr 09/09/18 05:07 PT 15.7 H INR 1.4 H Assessment & Plan Post-op Postoperative Postoperative status: doing well Postoperative plan narrative: If he keeps up with this good of p.o. intake he may be able go home. Does not seem to have any ill affects of clamping his T- tube. Quality VTE Deep Vein Thrombosis/Pulmonary Embolism Present on Admission: No
[2018-09-09] MEDS: ATORVASTATIN 20 MG TABLET 40 MG PO (20:46)
[2018-09-10] VITALS (12 sets, daily range): BP systolic 116–168; BP diastolic 44–92; PULSE 70–80; RESP 16–24; TEMP 36.4–37.2; O2SAT 95–99
--- NOTE | 2018-09-10 00:07 | PC.NURSE ---
Patient moves independently in bed.
--- NOTE | 2018-09-10 04:52 | PC.NURSE ---
Pt is A and O X4, VSS. He has eaten 100 % of breakfast and lunch and 50 % of dinner on 09/09/18 + 240 mL Boost x 2. He has gained 4.9 lbs since last weigh. LS clear, S1, S2, + BTs, voiding dark yellow, qs. His PIV has been in R UE for 5 days, is patent and does not hurt.
--- NOTE | 2018-09-10 06:17 | PC.NURSE ---
Found patient's drain open and under patient's body with no liquid in. Alerted KASSY Bell.
[2018-09-10] MEDS: METOPROLOL IR 50 MG TABLET PO ×2 (08:32→20:54)
[2018-09-10] MEDS: SODIUM CHLORIDE 0.9% FLUSH 10 ML IV ×2 (08:32→20:55)
--- NOTE | 2018-09-10 10:37 | P.PN_ITS ---
Subjective Date Patient Seen: 09/10/18 Interval history: He is seen today to follow-up his protein malnourishment, post stroke, hypertension, AFib, bile duct stone. He is doing fairly well, and says he has gained 7 lb in 5 days, on our scale he is up by 3.7 kg in 5 days. He is eating all his meals and is determined to ?not need the PEG tube?. Surgery has also been following him. The T tube is clamped. Exam Vital Signs (past 8 hours): - 09/10/18 06:00 09/10/18 07:00 Temperature 98.9 F Pulse Rate 75 Respiratory Rate 16 Blood Pressure 161/66 H Pulse Oximetry 99 97 Oxygen Delivery Method Room Air Oxygen Flow Rate 0 Narrative Exam Narrative: Alert and oriented x3. Heart regular rate and rhythm without murmur. Lungs clear to auscultation bilaterally. Abdomen soft bowel sounds positive, nontender, no organomegaly, T-tube in place. Extremities no ankle edema. Objective Labs Result Diagrams: 09/08/18 05:07 09/08/18 05:07 Assessment & Plan Plan: Assessment/Plan Narrative: 1. Severe protein calorie malnutrition: Plans to go home tomorrow and surgery agrees that he doesn't need the PEG tube as of today. 2. Acute kidney injury, pre renal due to dehydration: Resolved. 3. Recent CVA with left leg paresis: Able to use walker, neurologically stable , he has severe carotid stenosis, he has atrial fibrillation. Warfarin and clopidogrel on still on hold for PEG tube placement but will need to be resumed at planned discharge tomorrow if the PEG tube is not needed. Continue atorvastatin. 4. Hypertension: Now on metoprolol 50 mg twice daily. Lisinopril was held due to acute renal failure and will now be restarted. 5. Chronic atrial fibrillation with RVR: As noted warfarin on hold but can be restarted after PEG placement/potentially at discharge tomorrow. Continue metoprolol for rate control. 6. Common bile duct stone, status post recent open cholecystectomy and CBD exploration: His T-tube was clamped by surgery. CT scan of abdomen okay. He is tentatively scheduled for ERCP on 10/02/2018. Dr. Tato Lamb coordinating. 7. Disposition: Awaiting home or SNF tomorrow if no PEG needed. Quality VTE Deep Vein Thrombosis/Pulmonary Embolism Present on Admission: No
--- NOTE | 2018-09-10 11:20 | PM.PNPO.1 ---
Subjective Date Patient Seen: 09/10/18 Time Patient Seen: 11:20 Interval history: Patient feeling well. Has been eating 100% of all of his meals for the last several days. Has gained some weight he says. Overall feeling better. No abdominal pain or nausea. Exam Vital Signs (past 8 hours): - 09/10/18 06:00 09/10/18 07:00 Temperature 98.9 F Pulse Rate 75 Respiratory Rate 16 Blood Pressure 161/66 H Pulse Oximetry 99 97 Oxygen Delivery Method Room Air Oxygen Flow Rate 0 Narrative Exam Narrative: No apparent distress. Lungs are clear. Abdomen is soft nontender. I put a plug in the end of his T-tube. Drainage is serous. No evidence of bilirubin that I can see in it. Objective Labs Result Diagrams: 09/08/18 05:07 09/08/18 05:07 Assessment & Plan Post-op Postoperative Postoperative status: doing well Postoperative plan narrative: Evening much better. Can probably forego the PEG tube however will make him NPO and let that decision to Dr. Lamb. If no PE a frank is planned can probably be discharged tomorrow. Time Spent With Patient less than 15 minutes Quality VTE Deep Vein Thrombosis/Pulmonary Embolism Present on Admission: No
--- NOTE | 2018-09-10 12:02 | OT.IP.TRT ---
Current Diagnoses Unspecified severe protein-calorie malnutrition (09/05/18) Dehydration (09/05/18) Hypo-osmolality and hyponatremia (09/05/18) Unspecified atrial fibrillation (09/05/18) Calculus of bile duct without cholangitis or cholecystitis without obstruction (09/05/18) Acute kidney failure, unspecified (09/05/18) Weakness (09/05/18) Abnormal findings on diagnostic imaging of other parts of digestive tract (09/05/18) Occupational Therapy Treatment Note M2 OT-IP Current Condition Start: 09/06/18 15:54 Freq: Status: Active Protocol: Document 09/06/18 11:29 PJM (Rec: 09/06/18 16:16 PJM [id number]) Occupational Therapy Current Condition Current Condition Evaluation Date 08/23/18 Treatment Diagnosis weakness, dehydration,/poor nutritional, Stroke 08/23/18 w /LLE weakness Diagnosis Onset Date 09/04/18 Post Operative Precautions Abdominal Surgery Precautions Log Roll Lifting Restrictions Gait Belt above Incisional Area Other Precautions KENDRA drain, T-tube R lower quadrant M3 OT- IP Subjective and Pain Start: 09/06/18 15:54 Freq: Status: Active Protocol: Document 09/10/18 11:54 CCC (Rec: 09/10/18 12:02 [facility] [id number]) OT- Subjective Occupational Therapy Visit Type Type Treatment Note Visit Start Time 10:20 Visit Stop Time 10:30 Total Visit Minutes 25 Notes Pt also seen from [id number] for balance assessment. Occupational Therapy Visit Comments Patient/Caregiver Goals Pt still adamant to go home. OT Pain Assessment Pain When Pain Assessed At Rest Pain Present Pain Present Denied Pain increase oral intake Deficits IADL Deficits Identified Deficits Home Safety Awareness Awareness of Need for Assistance at Home Good Awareness Medication Management Medication Management Caregiver Provides Supervision Money Management Money Management Caregiver Provides Supervision Meal Preparation Meal Preparation Caregiver Provides Assist Sales Estimator Sales Estimator Caregiver Provides Assist Driving Driving Caregiver Provides Assist M6 OT- IP Functional Cognition Start: 09/06/18 15:54 Freq: Status: Active Protocol: Document 09/10/18 11:54 CCC (Rec: 09/10/18 12:02 CCC [id number]) Cognitive Factors Limiting Selfcare Function Cognitive Ability Level of Alertness Alert Patient Orientation Name Place Situation Attention Span Ability Capable of Focused Attention Capable of Sustained Attention Ability to Follow Commands Able to Follow Multi-Step Commands Memory Description Short Term Impaired Safety Awareness Underestimates Need for Assistance Problem Solving Ability Needs Assist to Identify Solutions Cognitive Comments Cognitive Assessment Comments Pt still determined to go home although realizes that he is weak and decreased balance. Pt states, I will be careful more at home. M7 OT- IP Mobility and Balance Start: 09/06/18 15:54 Freq: Status: Active Protocol: Document 09/10/18 11:54 [facility] (Rec: 09/10/18 12:02 [facility] [id number]) OT- Bed Mobility Assessment Rolling Type of Rolling Roll to Left Level of Assistance Standby Assistance Bedrails Supine to Sit Supine to Sit Assist Standby Assistance Bedrails Sit to Supine Sit to Supine Assist Standby Assistance Bedrails OT-Transfer Assessment Sit to and From Stand Sit to and from Stand Standby Assistance Contact Guard Assistance 1 Person Assistance Transfers Transfer Ability Standby Assistance Contact Guard Assistance 1 Person Assistance Technique Transfer Destination Bed Chair Devices Transfer Assistive Devices Gait Belt Front Wheeled Walker Comments Mobility Comments Pt unsteady on his feet and walking to the sink with FWW has two lose of balance and needing MODA fro therapist from fallinig. OT- Balance Assessment Sitting Balance and Reactions Static Sitting Balance Ability Normal Dynamic Sitting Balance Ability Good Standing Balance and Reactions Static Standing Balance Ability Fair Dynamic Standing Balance Ability Poor Balance Tests Knapp Balance Test Score Pt scored 19/56 which implies Query Text:Score high fall risk. M8 OT- IP Objective Assessments Start: 09/06/18 15:54 Freq: Status: Active Protocol: Document 09/06/18 11:29 PJM (Rec: 09/06/18 16:16 PJM [id number]) OT Gross Range of Motion Upper Extremity Range of Motion Assessment Within Functional Limits OT Strength Upper Extremity Strength Assessment Within Functional Limits Hand Pearl Glue Operator Strength Hand Dominance Right Comments Strength Comments No focal weakness noted except L shoulder 4+/5 OT- Coordination Assessment Comments Coordination Comments WFL BUE during self care tasks including opening packages OT-Muscle Tone Assessment Muscle Tone WNL Yes OT Sensation Assessment Comments Summary Comments Pt denies sensory deficits in BUES Edema Edema Absent Edema Comments Pt ahs BLE knee high L[place] hose in place that have decreased BLE edema per . M9 OT- IP Assessment and Plan Start: 09/06/18 15:54 Freq: Status: Active Protocol: Document 09/10/18 11:54 [facility] (Rec: 11/18/18 12:02 CCC [email or web address]) OT Summary Assessment and Plan Potential Rehabilitation Potential Fair Analytic Complexity at Evaluation Moderate Summary OT Impairments Strength Balance Functional Mobility Grooming Dressing Toileting Bathing Toilet Transfers Shower Transfers Progress Towards Goals Progressing Toward Goals Slow Progress due to Activity Tolerance Slow Progress due to Cognition Assessment Summary Pt still high fall risk, decreased endurance and would benefit from skilled rehab prior to going home. Goals Grooming Goal Standby Assistance Dressing Goal Standby Assistance Toileting Goal Standby Assistance Bathing Goal Minimal Assistance Grab Bars Hand Held Shower Sprayer Long Handled Sponge or [place] Toilet Transfer Goal Standby Assistance Shower Transfer Goal Contact Guard Assistance Patient/Caregiver Education Goal Demonstrate Energy Conservation and Pacing Days to Meet Goals 7 Frequency of Treatment Frequency Of Treatment Once a Day Treatment Plan OT Treatment Plan ADL Training Functional Mobility Patient/Family Education Discharge Planning Discharge Recommendations OT Discharge Recommendations SNF Rehab
--- NOTE | 2018-09-10 12:16 | CM.DPC ---
Addendum entered by Cheri Santiago LPN 09/10/18 14:11: Alana and their daughter just arrived. Updated then outside pt's room. Both note pt would be better served going to [facility] but agree they can only do so much to convince him.... Original Note: DCP: continued: case received, discussed in Team Rounds yesterday. At that time plan remained peg tube placement on Tuesday 09/11. Hand-off from Tena Almendarez indicated that pt and his were agreeable to [facility] for rehab/recovery when ready to leave hospital. Case discussed in team rounds again this morning and care team members noted that pt was now eating and that Dr. Hester may be cancelling the peg tube surgery. Therapy team noted that pt was still weak and they continued to recommend snf at d/c. Spoke with Kiera/[facility] for updated. She stated that she did not have this patient on her referral list. Clinical faxed now to her. Noted also the 2 other recent admissions here and the one very long LOS. Kiera will review, does anticipate that [facility] can accept pt but that [facility] will have to have a better understanding of the overall situation. Brooke will be able to review EMR in more detail tomorrow. Checked in with pt then. He says that he is eating now and gaining wt. I really don't want that tube in my stomach. Said Alana/ would be in later today but really, these decisions will be up to me. Acknowledged same. Agreed to check in with them again today prn. Note that plan at this time is only consideration of [facility]. Discussion will be continuing re the overall POC.
[2018-09-10] MEDS: ENOXAPARIN 40 MG/0.4 ML SYRINGE SUBCUT (14:47)
--- NOTE | 2018-09-10 16:36 | PT.IPTN ---
Current Diagnoses Unspecified severe protein-calorie malnutrition (09/05/18) Dehydration (09/05/18) Hypo-osmolality and hyponatremia (09/05/18) Unspecified atrial fibrillation (09/05/18) Calculus of bile duct without cholangitis or cholecystitis without obstruction (09/05/18) Acute kidney failure, unspecified (09/05/18) Weakness (09/05/18) Abnormal findings on diagnostic imaging of other parts of digestive tract (09/05/18) Physical Therapy Treatment Note M2 PT-IP Current Condition Start: 09/05/18 14:29 Freq: NEEDED Status: Active Protocol: Document 09/08/18 11:25 NFW (Rec: 09/08/18 11:37 NFW [id number]) Physical Therapy Current Condition Current Condition Evaluation Date 09/05/18 Treatment Diagnosis Generalized weakness Onset Date 09/05/18 Precautions Abdominal Surgery Precautions Log Roll Lifting Restrictions Gait Belt above Incisional Area Other Precautions KENDRA drain, T-tube R lower quadrant M3 PT-IP Subjective Start: 09/05/18 14:29 Freq: NEEDED Status: Active Protocol: Document 09/10/18 15:05 CLB (Rec: 09/10/18 16:36 CLB [id number]) Subjective Physical Therapy Visit Type Type Treatment Note Visit Start Time 15:05 Visit Stop Time 15:31 Total Visit Minutes 26 Number of [employer] Visits 1 Physical Therapy Visit Comments Patient Comments pt agreeable to do PT Patient Goals Pt wanting to walk three times around nursing station this afternoon. Therapy Pain Assessment Pain Present Pain Present Denied Pain M4 PT-IP Mobility and Gait Start: 09/05/18 14:29 Freq: NEEDED Status: Active Protocol: Document 09/10/18 15:05 CLB (Rec: 09/10/18 16:36 CLB [id number]) PT-Bed Mobility Assessment Rolling Type of Rolling Roll to Left Level of Assist Independent Supine to Sit Supine to Sit Independent Sit to Supine Sit to Supine Independent Scooting Scooting to Edge of Bed Independent Scooting Up and Down in Bed Independent PT-Transfer Assessment Sit to and From Stand Sit to and from Stand Standby Assistance Equipment Transfer Assistive Device Gait Belt Front Wheeled Walker Transfers Transfer Destination Bed Transfer Ability Level of Assist Standby Assistance Gait Assessment Gait Gait Assistance Required: Standby Assistance Contact Guard Assist Distance (Feet) 400 Assistive Devices Assistive Device Gait Belt Front Wheeled Walker Orthotic/Prosthetic Devices or Brace: No Gait Deviations General Gait Pattern Antalgic Flexed Trunk Factors Limiting Gait Function Factors Limiting Gait Function Incoordination Poor Balance Comments Gait Comments Pt needed cues to stay inside walker and posture. PT-Balance Assessment Comments Other Balance Tests/Deviations/Treatment Seated marches, ankle pumps, : knee flex/ext. Standing at FWW with marches, rhythmic stabilization at shoulders then torso. M5 PT-IP Objective Assessments Start: 09/05/18 14:29 Freq: NEEDED Status: Active Protocol: Document 09/05/18 13:49 (Rec: 09/05/18 14:46 [id number]) Orientation Orientation/Cognition Level of Alertness Alert Orientation Name Age Birthday Month Date Year Day of Week Place Situation Safety Awareness Decreased Safety Awareness Gross Range of Motion Lower Extremity ROM Assessment Within Functional Limits Strength Lower Extremity Strength Assessment Bilaterally Impaired Comments Strength Comments BLE 4/5 grossly. M6 PT-IP Treatment Start: 09/05/18 14:29 Freq: NEEDED Status: Active Protocol: Document 09/10/18 15:05 CLB (Rec: 09/10/18 16:36 CLB [id number]) Physical Therapy Treatment Exercises Exercises Ankle Pumps Quad Sets Straight Leg Raises Education Education Provided Safety M7 PT-IP Assessment and Plan Start: 09/05/18 14:29 Freq: NEEDED Status: Active Protocol: Document 09/10/18 15:05 CLB (Rec: 09/10/18 16:36 CLB [id number]) PT Summary Assessment and Plan Summary Impairments Strength Balance Gait Activity Tolerance Progress Towards Goals Progressing Toward Goals Assessment Summary Pt continues to require SBA/ CGA with mobility but had no LOB during session and increased gait to ~400ft. Goals Transfer Goal Independent Four Wheeled Walker Gait Goal Independent Four Wheel Walker Gait Distance 300 Days to Meet Goals 5 Frequency of Treatment Frequency Of Treatment Once a Day Treatment Plan Physical Therapy Treatment Plan Bed Mobility Training Transfer Training Gait Training Therapeutic Exercise Balance Retraining Discharge Planning Hot or Cold Pack Neuromuscular Re-ed Coordination Retraining Manual Therapy Other Recommendations and Next Treatment Trial 4WW, gait and ther ex. Focus Recommendations To Nursing Amount of Assist Needed 1 Person Assist Discharge Recommendations PT Discharge Recommendations Home with Assistance SNF Rehab Outpatient PT Other Discharge Recommendations home with assist/outpt PT vs SNF
[2018-09-10] MEDS: ATORVASTATIN 20 MG TABLET 40 MG PO (20:54)
[2018-09-10] MEDS: LISINOPRIL 20 MG TABLET PO (22:33)
[2018-09-10] MEDS: HYDROCODONE/ACET 5/325 TABLET 1 TAB PO (23:31)
--- NOTE | 2018-09-11 04:46 | PC.NURSE ---
Pt A and O x 4, VSS able to sleep all shift. C/o of mid to lower abd pain at approx 2330, resolved with one [place]. Pt reportedly ate very well again on 09/11/18. LS diminished , S1, S2, + BTs, no BM. Voiding qs clear dark yellow.
[2018-09-11 05:40] LABS: Add Manual Diff / Slide Review NO; Basophils Percent Auto 0.8 % (0-2); Eosinophils Percent Auto 5.2 % (2-4); Hematocrit 39.1 % (41-53); Hemoglobin 12.9 g/dL (13.5-17.5); Lymphocytes Percent Auto 18.2 % (25-40); Mean Corpuscular HGB Conc 32.9 % (30-36); Mean Corpuscular Hemoglobin 27.1 PG (26-34); Mean Corpuscular Volume 82.3 fL (80-100); Monocytes Percent Auto 8.8 % (3-14); Neutrophils Absolute Auto 4300 /uL (3000-5900); Platelet Count 144 X10^3/uL (150-400); Red Blood Cell Count 4.75 X10^6/uL (4.5-5.9); Red Cell Distribution Width 15.3 % (11.6-14.8); White Blood Cell Count 6.4 X10^3/uL (4.5-11.0)
[2018-09-11 05:45] LABS: HEMOLYSIS < 15 (0-50)
[2018-09-11 05:49] LABS: Alanine Aminotransferase 85 IU/L (21-72); Albumin 3.2 g/dL (3.5-5.0); Albumin Globulin Ratio 1.1 (1.0-2.8); Alkaline Phosphatase 174 U/L (38-126); Aspartate Aminotransferase 63 IU/L (17-59); Bilirubin Total 0.4 mg/dL (0.2-1.3); Blood Urea Nitrogen 18 mg/dL (9-20); Calcium 8.8 mg/dL (8.4-10.2); Carbon Dioxide 32 mmol/L (22-32); Chloride 102 mmol/L (98-107); Estimated Glomerular Filt Rate > 60.0 mL/min (>60); Globulin 2.8 g/dL (1.7-4.1); Glucose 113 mg/dL (80-110); Potassium 4.6 mmol/L (3.4-5.1); Sodium 139 mmol/L (137-145)
[2018-09-11 05:56] VITALS: BP 144/57; PULSE 63; RESP 16; TEMP 36.5; O2SAT 95
[2018-09-11 07:00] VITALS: O2SAT 97
[2018-09-11 07:31] LABS: Prealbumin 13.8 mg/dL (17.6-36.0)
[2018-09-11 08:05] VITALS: BP 112/55; PULSE 83; RESP 18; TEMP 36.3; O2SAT 99
[2018-09-11] MEDS: SODIUM CHLORIDE 0.9% FLUSH 10 ML IV (10:10)
[2018-09-11] MEDS: ENOXAPARIN 40 MG/0.4 ML SYRINGE SUBCUT (10:10)
[2018-09-11] MEDS: METOPROLOL IR 50 MG TABLET PO (10:10)
--- NOTE | 2018-09-11 10:38 | OT.IP.TRT ---
Current Diagnoses Unspecified severe protein-calorie malnutrition (09/05/18) Dehydration (09/05/18) Hypo-osmolality and hyponatremia (09/05/18) Unspecified atrial fibrillation (09/05/18) Calculus of bile duct without cholangitis or cholecystitis without obstruction (09/05/18) Acute kidney failure, unspecified (09/05/18) Weakness (09/05/18) Abnormal findings on diagnostic imaging of other parts of digestive tract (09/05/18) Occupational Therapy Treatment Note M2 OT-IP Current Condition Start: 09/06/18 15:54 Freq: Status: Active Protocol: Document 09/06/18 11:29 PJM (Rec: 09/06/18 16:16 PJM [id number]) Occupational Therapy Current Condition Current Condition Evaluation Date 08/23/18 Treatment Diagnosis weakness, dehydration,/poor nutritional, Stroke 08/23/18 w /LLE weakness Diagnosis Onset Date 09/04/18 Post Operative Precautions Abdominal Surgery Precautions Log Roll Lifting Restrictions Gait Belt above Incisional Area Other Precautions KENDRA drain, T-tube R lower quadrant M3 OT- IP Subjective and Pain Start: 09/06/18 15:54 Freq: Status: Active Protocol: Document 09/11/18 10:33 CCC (Rec: 09/11/18 10:37 [facility] [id number]) OT- Subjective Occupational Therapy Visit Type Type Treatment Note Visit Start Time 10:20 Visit Stop Time 10:28 Total Visit Minutes 8 assist in bed today. M5 OT- IP IADL's Start: 09/06/18 15:54 Freq: Status: Active Protocol: Document 09/06/18 11:29 PJM (Rec: 09/06/18 16:16 PJ [id number]) OT-Instrumental Activities of Daily Living Deficits IADL Deficits Identified Deficits Home Safety Awareness Awareness of Need for Assistance at Home Good Awareness Medication Management Medication Management Caregiver Provides Supervision Money Management Money Management Caregiver Provides Supervision Meal Preparation Meal Preparation Caregiver Provides Assist Biological Sciences Professor Biological Sciences Professor Caregiver Provides Assist Driving Driving Caregiver Provides Assist M6 OT- IP Functional Cognition Start: 09/06/18 15:54 Freq: Status: Active Protocol: Document 09/11/18 10:33 CCC (Rec: 09/11/18 10:37 CCC [email or web address]) Cognitive Factors Limiting Selfcare Function Cognitive Ability Level of Alertness Alert Attention Span Ability Capable of Focused Attention Capable of Sustained Attention Ability to Follow Commands Able to Follow Multi-Step Commands Memory Description Short Term Impaired Safety Awareness Underestimates Need for Assistance Problem Solving Ability Needs Assist to Identify Solutions Executive Function Ability Unable to Organize Plans Unable to Remember Details Abstract Thinking Ability Unable to Understand Generalizations Unable to Apply Concepts to New Surroundings Unable to Apply Concepts to New Situations Cognitive Comments Cognitive Assessment Comments Pt needing reminders for safety awareness and emphasized to use FWW when he gets home as pt states will try to use his cane instead. Encourage pt to ask for assistance as needed before trying on his own as pt is a high fall risk. Gave pt information and went over suggestions regarding fall preventions. M7 OT- IP Mobility and Balance Start: 09/06/18 15:54 Freq: Status: Active Protocol: Document 09/10/18 11:54 [facility] (Rec: 09/10/18 12:02 [facility] [id number]) OT- Bed Mobility Assessment Rolling Type of Rolling Roll to Left Level of Assistance Standby Assistance Bedrails Supine to Sit Supine to Sit Assist Standby Assistance Bedrails Sit to Supine Sit to Supine Assist Standby Assistance Bedrails OT-Transfer Assessment Sit to and From Stand Sit to and from Stand Standby Assistance Contact Guard Assistance 1 Person Assistance Transfers Transfer Ability Standby Assistance Contact Guard Assistance 1 Person Assistance Technique Transfer Destination Bed Chair Devices Transfer Assistive Devices Gait Belt Front Wheeled Walker Comments Mobility Comments Pt unsteady on his feet and walking to the sink with FWW has two lose of balance and needing MODA fro therapist from fallinig. OT- Balance Assessment Sitting Balance and Reactions Static Sitting Balance Ability Normal Dynamic Sitting Balance Ability Good Standing Balance and Reactions Static Standing Balance Ability Fair Dynamic Standing Balance Ability Poor Balance Tests Knapp Balance Test Score Pt scored 19/56 which implies Query Text:Score high fall risk. 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 M9 OT- IP Assessment and Plan Start: 09/06/18 15:54 Freq: Status: Active Protocol: Document 09/10/18 11:54 [facility] (Rec: 09/10/18 12:02 [facility] [email or web address]) OT Summary Assessment and Plan Potential Rehabilitation Potential Fair Analytic Complexity at Evaluation Moderate Summary OT Impairments Strength Balance Functional Mobility Grooming Dressing Toileting Bathing Toilet Transfers Shower Transfers Progress Towards Goals Progressing Toward Goals Slow Progress due to Activity Tolerance Slow Progress due to Cognition Assessment Summary Pt still high fall risk, decreased endurance and would benefit from skilled rehab prior to going home. Goals Grooming Goal Standby Assistance Dressing Goal Standby Assistance Toileting Goal Standby Assistance Bathing Goal Minimal Assistance Grab Bars Hand Held Shower Sprayer Long Handled Sponge or [place] Toilet Transfer Goal Standby Assistance Shower Transfer Goal Contact Guard Assistance Patient/Caregiver Education Goal Demonstrate Energy Conservation and Pacing Days to Meet Goals 7 Frequency of Treatment Frequency Of Treatment Once a Day Treatment Plan OT Treatment Plan ADL Training Functional Mobility Patient/Family Education Discharge Planning Discharge Recommendations OT Discharge Recommendations SNF Rehab
--- NOTE | 2018-09-11 10:40 | CM.DPC ---
DCP Cont: Discussed case with hospitalist. Originally mentioned patient going to [facility]. At this time, patient does not need a peg tube, since he has been eating. Agreed that rehab may be beneficial for patient secondary to weakness. Hospitalist went to speak to patient, and patient is determined to go home. Updated Kiera at [facility], letting her know that plan has changed, and patient is wishing to go home. P: Patient is to be discharged home today. Cinda Kramer RN/Electrochemist
[2018-09-11] MEDS: LISINOPRIL 20 MG TABLET PO (10:50)
[2018-09-11 12:25] VITALS: BP 135/57; PULSE 66; RESP 18; TEMP 36.4; O2SAT 100
--- NOTE | 2018-09-11 12:47 | P.PN_ITS ---
Subjective Date Patient Seen: 09/11/18 Time Patient Seen: 12:42 Interval history: Patient has no new complaints. No pain. No nausea or vomiting. Reports normal bowel and bladder function. Feels that he is regaining his strength. Appetite is returning. No subjective fever or chills. Over the last 3-4 days he is actually eating 100% of his meals along with boost supplementation. Exam Vital Signs (past 8 hours): - 09/11/18 05:56 09/11/18 07:00 09/11/18 08:05 Temperature 97.7 F 97.3 F L Pulse Rate 63 83 Respiratory Rate 16 18 Blood Pressure 144/57 H 112/55 L Pulse Oximetry 95 97 99 Oxygen Delivery Method Room Air Oxygen Flow Rate 0 Narrative Exam Narrative: Thin male in no acute distress. Alert oriented x3. His is at the bedside for my entire visit. Patient clearly of appears clinically much improved since his admission. Sclera nonicteric Chest is clear to auscultation Abdomen soft, nondistended, nontender, no masses. Incisions are healing nicely. Drain sites are clean. Dhruv-Gutierrez drain is collecting small amount of serous fluid only. No bile. T-Tube is clamped for several days now. Extremities show no clubbing or cyanosis Objective Labs Result Diagrams: 09/11/18 05:18 09/11/18 05:18 Labs: Laboratory Results - last 24 hr 09/11/18 09/11/18 05:18 05:18 WBC 6.4 RBC 4.75 Hgb 12.9 L Hct 39.1 L MCV 82.3 MCH 27.1 MCHC 32.9 RDW 15.3 H Plt Count 144 L Neut % (Auto) 67.0 Lymph % (Auto) 18.2 L [place] % (Auto) 8.8 Eos % (Auto) 5.2 H Baso % (Auto) 0.8 Neut # (Auto) 4300 Sodium 139 Potassium 4.6 Chloride 102 Carbon Dioxide 32 BUN 18 Creatinine 0.60 L Estimated GFR > 60.0 BUN/Creatinine Ratio 30.0 H Glucose 113 H Calcium 8.8 Total Bilirubin 0.4 AST 63 H ALT 85 H Alkaline Phosphatase 174 H Total Protein 6.0 L Albumin 3.2 L Globulin 2.8 Albumin/Globulin Ratio 1.1 Prealbumin 13.8 L No new radiographic studies review. Creatinine is back to normal baseline. Liver function tests are unremarkable in light of recent surgery. Bilirubin is normal. Assessment & Plan Plan: Assessment/Plan Narrative: 78-year-old male with protein calorie malnutrition and retained common bile duct stone status post open cholecystectomy with T-tube placement. At this point his nutritional status and oral intake have improved over the last several days. I therefore would not recommend placement of a PEG at this time. I discussed this with him in detail and he was quite amenable to this, and he assures me that he can continue to eat his meals as above. He continues to take daily protein supplementation also. Ambulate as tolerated. I will see him in the office in 2 days as scheduled and likely remove the Dhruv-Gutierrez drain. We will restart his Coumadin today. However, I recommend holding the Plavix indefinitely until after his ERCP which is scheduled in the next couple of weeks or so. I will discuss management of his warfarin with the line patrolman regarding exact date of stoppage prior to the procedure. I still believe the patient would potentially benefit from [facility] with aggressive physical therapy, but he adamantly refuses placement. Therefore he may be discharged home at any time from a surgical perspective. Follow up with me in 2 days as well as his PCP in another week or so. Continue with tentative plans for ERCP and stone extraction on October 02, 2018 as scheduled. All questions were answered to his satisfaction, and he voiced understanding. Orders were written. Quality VTE Deep Vein Thrombosis/Pulmonary Embolism Present on Admission: No
--- NOTE | 2018-09-11 13:04 | PC.NURSE ---
Addendum entered by Sarah Shin R.N. 09/11/18 14:21: Pt has completed d/c paperwork and IV removed. Ready to go, awaiting to transport home. Original Note: Am shift Pt is continuing to do well. Dr Abbott written d/c orders and Dr Lamb into see Pt shortly after. Recheck appt with Dr Lamb is scheduled for Tuesday. Orders obtained for restarting coumadin and holding plavix. Appt with Dr Lamb Tuesday,
--- NOTE | 2018-09-11 13:44 | DIET.PN ---
Per med record, pt determined to not have PEG feeding tube. Has been forcing himself to eat; taking approx 100% X last 3 days, plus ONS. Feels better. PEG feeding tube deferred. Encouraged to continue eating well, continue ONS after DC
--- NOTE | 2018-09-11 14:23 | PT.IPTN ---
Current Diagnoses Unspecified severe protein-calorie malnutrition (09/05/18) Dehydration (09/05/18) Hypo-osmolality and hyponatremia (09/05/18) Unspecified atrial fibrillation (09/05/18) Calculus of bile duct without cholangitis or cholecystitis without obstruction (09/05/18) Acute kidney failure, unspecified (09/05/18) Weakness (09/05/18) Abnormal findings on diagnostic imaging of other parts of digestive tract (09/05/18) Physical Therapy Treatment Note M2 PT-IP Current Condition Start: 09/05/18 14:29 Freq: NEEDED Status: Active Protocol: Document 09/08/18 11:25 NFW (Rec: 09/08/18 11:37 NFW [id number]) Physical Therapy Current Condition Current Condition Evaluation Date 09/05/18 Treatment Diagnosis Generalized weakness Onset Date 09/05/18 Precautions Abdominal Surgery Precautions Log Roll Lifting Restrictions Gait Belt above Incisional Area Other Precautions KENDRA drain, T-tube R lower quadrant M3 PT-IP Subjective Start: 09/05/18 14:29 Freq: NEEDED Status: Active Protocol: Document 09/11/18 08:45 CLB (Rec: 09/11/18 14:23 CLB [id number]) Subjective Physical Therapy Visit Type Type Treatment Note Visit Start Time 08:45 Visit Stop Time 09:15 Total Visit Minutes 30 Number of [employer] Visits 2 Physical Therapy Visit Comments Patient Comments pt agreeable to do PT. Pt also stated he is going home and not to rehab. Therapy Pain Assessment Pain Present Pain Present Denied Pain M4 PT-IP Mobility and Gait Start: 09/05/18 14:29 Freq: NEEDED Status: Active Protocol: Document 09/11/18 08:45 CLB (Rec: 09/11/18 14:23 CLB [id number]) PT-Bed Mobility Assessment Rolling Type of Rolling Roll to Left Level of Assist Independent Supine to Sit Supine to Sit Independent Sit to Supine Sit to Supine Independent Scooting Scooting to Edge of Bed Independent Scooting Up and Down in Bed Independent PT-Transfer Assessment Sit to and From Stand Sit to and from Stand Standby Assistance Equipment Transfer Assistive Device Gait Belt Front Wheeled Walker Transfers Transfer Destination Bed Transfer Ability Level of Assist Standby Assistance Comments Mobility Comments Patient able to perform bed mobility activites with bed flat. Gait Assessment Gait Gait Assistance Required: Standby Assistance Contact Guard Assist Distance (Feet) 500 Able to Maintain Weight Bearing Status Yes During Gait Assistive Devices Assistive Device Gait Belt 4 Wheeled Walker Orthotic/Prosthetic Devices or Brace: No Gait Deviations General Gait Pattern Antalgic Flexed Trunk Factors Limiting Gait Function Factors Limiting Gait Function Decreased Activity Tolerance Decreased Strength Incoordination Comments Gait Comments Pt trialed 4WW. Pt able to properly use brakes for safety and improve posture with 4WW. M5 PT-IP Objective Assessments Start: 09/05/18 14:29 Freq: NEEDED Status: Active Protocol: Document 09/05/18 13:49 (Rec: 09/05/18 14:46 [id number]) Orientation Orientation/Cognition Level of Alertness Alert Orientation Name Age Birthday Month Date Year Day of Week Place Situation Safety Awareness Decreased Safety Awareness Gross Range of Motion Lower Extremity ROM Assessment Within Functional Limits Strength Lower Extremity Strength Assessment Bilaterally Impaired Comments Strength Comments BLE 4/5 grossly. M6 PT-IP Treatment Start: 09/05/18 14:29 Freq: NEEDED Status: Active Protocol: Document 09/11/18 08:45 CLB (Rec: 09/11/18 14:23 CLB [id number]) Physical Therapy Treatment Exercises Exercises Ankle Pumps Quad Sets Straight Leg Raises Education Education Provided Safety Other Treatments Other Treatment Performed rhythmic stabilization at shoulders then torso. M7 PT-IP Assessment and Plan Start: 09/05/18 14:29 Freq: NEEDED Status: Active Protocol: Document 09/11/18 08:45 CLB (Rec: 09/11/18 14:23 CLB [id number]) PT Summary Assessment and Plan Summary Impairments Strength Balance Gait Activity Tolerance Progress Towards Goals Progressing Toward Goals Assessment Summary Pt with increase gait distance and improved posture using 4WW. Pt w/o LOB during ambulation and is able to tolerate theraputic exercises well. Pt is Ind with all bed mobility and SBA sit-stand. Pt requires CGA at times during gait as LLE fatigues and during 180 degree turns as pt tends to perform thses too quickly. Goals Transfer Goal Independent Four Wheeled Walker Gait Goal Independent Four Wheel Walker Gait Distance 300 Days to Meet Goals 5 Frequency of Treatment Frequency Of Treatment Once a Day Treatment Plan Physical Therapy Treatment Plan Bed Mobility Training Transfer Training Gait Training Therapeutic Exercise Balance Retraining Discharge Planning Hot or Cold Pack Neuromuscular Re-ed Coordination Retraining Manual Therapy Recommendations To Nursing Amount of Assist Needed 1 Person Assist Discharge Recommendations PT Discharge Recommendations Home with Assistance SNF Rehab Outpatient PT Other Discharge Recommendations home with assist/outpt PT vs SNF
--- NOTE | 2018-09-12 15:10 | PM.DS.1 ---
History of Present Illness Chief complaint: Weakness Narrative: Patient is a 78 y/o male with several recent hospitalizations for CBD stone, with cholecystomy tube, Recent Stroke, Weight Loss. Patient was home when he felt shaky and thought he was having another stroke. He has weakenss of the right leg and became very weak when walking. He has been unable to eat and reports a 45 pound weight loss over the last month. The patient was encouraged to go to the SNF for rehab following his stay which he declined. The patient has been offered peg tube placement for nourishment which he declined previously as well. He was dizzy, weak, unable to eat as the food tastes bad. He has no appetite. patient was found to be dehydrated with acute renal failure and admitted to the hospital for further evaluation. Discharge Providers Date of admission: 09/05/18 08:04 Consults: 09/05/18 09:57 Consult to Dietitian, Adult Routine Comment: Reason For Exam: poor PO intake. weight loss 09/05/18 12:29 Consult to Dietitian, Adult Routine Comment: Reason For Exam: weight loss Consult to Discharge Planning Routine Comment: Consult to Occupational Therapy Evaluate & Treat Comment: Physician Instructions: Evaluate and treat Consult to Physical Therapy Evaluate & Treat Comment: Physician Instructions: Evaluate and Treat 09/05/18 21:23 Consult to General Surgery Routine Comment: Consulting Provider: Tato Lamb Reason for consultation: peg tube placement Has provider been notified: Yes 09/06/18 13:14 Consult to Speech Therapy Evaluate & Treat Comment: swallowing difficulty Physician Instructions: Evaluate and treat Discharge provider: Lorenza Abbott MD Discharge Date: 09/11/18 Summary Discharge Diagnosis: Severe Protein Calorie Malnutrition Weakness Choledocholithiasis History of CVA Hypertension Hyperlipidemia Hospital Course: Patient was admitted to the hospital for weakness, severe protein calorie malnutrtion. The plan was for the patient to have a PEG placement and ultimately be discharged to a SNF for ongoing PT/OT. Patient was slowly able to improve his appetite and oral intake. He did not require a PEG to be placed. He was able to ambulate with PT. He was much better and felt to be stable for discharge home. The patient has a follow up appointment with GI for ERCP October 02, 2018. His T tue was clamped and patient was ready for discharge to home. Status at Discharge Functional status at discharge: uses cane/walker Overall status at discharge: patient is not back to baseline Time Spent with Patient Less than 30 minutes Exam Vital Signs (past 8 hours): Oxygen Delivery Method Room Air Oxygen Flow Rate 0 Const General: cooperative and healthy appearing Nutritional Appearance: cachectic and malnourished Orientation: alert, awake and oriented x3 HENMT Head: normal to inspection Ears: hearing grossly normal bilaterally and external ears normal Nose: external nose normal Face and sinus: normal facial exam Mouth: oral mucosae normal and lip normal Teeth and gingiva: dentition normal Throat: posterior oropharynx normal Other: Lungs: clear to auscultation CV: RRR nl Sl S2 Abd: soft/ non tender Ext: no edema Objective Labs Result Diagrams: 09/11/18 05:18 09/11/18 05:18 Discharge Plan Discharge Plan Patient Disposition: Home Discharge Med Rec/Prescriptions Prescriptions: New atorvastatin [Lipitor] 20 mg Tablet 40 mg PO BEDTIME Qty: 30 RF: 0 lisinopril 20 mg Tablet 20 mg PO DAILY Qty: 30 RF: 0 metoprolol tartrate 50 mg Tablet 50 mg PO BID Qty: 60 RF: 0 Continue lisinopril 20 mg Tablet 20 mg PO BID Qty: 60 RF: 0 metoprolol tartrate 50 mg Tablet 50 mg PO BID Qty: 60 RF: 0 warfarin [Coumadin] 3 mg tablet 1 mg PO BID RF: 0 Discontinued atorvastatin [Lipitor] 20 mg Tablet 40 mg PO BEDTIME Qty: 30 RF: 0 clopidogrel [Plavix] 75 mg Tablet 75 mg PO DAILY Qty: 30 RF: 0 Provider Discharge Instructions Diet: Diet as Tolerated Diet comment: boost with each meal Activity: activity as tolerated Other treatments: f/u with GI for ERCP on 09/23/2018 Visit Report/Discharge Packet Visit Report Forms: Stroke Signs & Symptoms Discharge Data Attending Provider: Lorenza Abbott Admit Date/Time: 09/05/18 08:04 Discharges patient from system. Discharge Date/Time: 09/11/18 13:45 Quality VTE Deep Vein Thrombosis/Pulmonary Embolism Present on Admission: No
== END 2018-09-11 13:45 | disposition home or self-care (01) | DRG 682 ==
LOC: ED 08:03 → AC 08:07
PROVIDERS: Emergency Medicine; Internal Medicine; Specialist; Surgery; Admitting Provider Internal Medicine; Emergency Provider Emergency Medicine; Visit Provider Internal Medicine
DX: N17.9 Acute kidney failure, unspecified (principal); E43 Unspecified severe protein-calorie malnutrition; I63.9 Cerebral infarction, unspecified; K85.90 Acute pancreatitis without necrosis or infection, unspecified; E87.1 Hypo-osmolality and hyponatremia; K91.86 Retained cholelithiasis following cholecystectomy; Z68.1 Body mass index [BMI] 19.9 or less, adult; G81.94 Hemiplegia, unspecified affecting left nondominant side; E86.0 Dehydration; I48.91 Unspecified atrial fibrillation; Z79.01 Long term (current) use of anticoagulants; F17.210 Nicotine dependence, cigarettes, uncomplicated; K80.50 Calculus of bile duct without cholangitis or cholecystitis without obstruction
CPT/HCPCS: 36415; 36591; 70450; 71045; 74177; 80048; 80053; 82150; 83605; 83690; 83880; 84134; 84145; 84484; 85025; 85610; 85730; 87040; 92610; 93005; 94760; 96360; 96361; 97110; 97116; 97127; 97161; 97166; 97530; 97535; 99221; 99231; 99285; J1650; J2405; J7050; Q9967

== ENCOUNTER 2018-09-16 18:42 | Inpatient (IN) | payer MEDICARE, OTHER, SELFPAY ==
[2018-09-05 09:47] VITALS: BMI 16.0
--- NOTE | 2018-09-16 18:43 | DI.CT.S_ITS ---
PROCEDURE: CT HEAD/BRAIN WO CON INDICATIONS: new stroke symptoms TECHNIQUE: Noncontrast 4.5 mm thick angled axial sections acquired from the foramen magnum to the vertex, with coronal and sagittal reformats. For radiation dose reduction, the following was used: automated exposure control, adjustment of mA and/or kV according to patient size. COMPARISON: [facility], CT, CT HEAD/BRAIN WO CON, 09/05/2018, 6:00. FINDINGS: Image quality: Excellent. CSF spaces: Basal cisterns are patent. No extra-axial fluid collections. The ventricles are symmetric in size and shape. Brain: No intracranial bleeds or masses. There is cerebral volume loss for age, with resultant ventricular and sulcal prominence. There are periventricular and deep white matter chronic small vessel ischemic changes. There is intracranial internal carotid artery atherosclerosis. Skull and face: Calvarium and visualized facial bones appear intact, without suspicious lesions. Sinuses: Visualized sinuses and mastoids are clear. IMPRESSION: No acute process. Findings discussed with Dr. Kramer on 09.16.18 at 1857 hrs. Dictated by: Taylor Cerrato M.D. on 09/16/2018 at 18:56 Approved by: Taylor Cerrato M.D. on 09/16/2018 at 18:57
[2018-09-16 18:44] VITALS: BP 143/51; PULSE 71; RESP 16; O2SAT 98
--- NOTE | 2018-09-16 18:54 | ED.NEUROSD ---
HPI - Neuro Symptoms/Deficit General Chief Complaint: Neuro Symptoms/Deficit Stated Complaint: Stroke Time Seen by Provider: 09/16/18 18:43 Source: patient and EMS Mode of arrival: EMS Limitations: no limitations History of Present Illness HPI Narrative: 78-year-old male, daily smoker presents by EMS for evaluation of generalized weakness, shaking, and left upper extremity weakness. He has had a very complicated recent medical history that seems to have started with a stroke and choledocholithiasis on Halloween. He has had multiple lengthy admissions in the interim. He is living back at home with his now and has felt poorly over the course of the day including generalized weakness and shakiness. His left upper extremity is flaccid but without sensory deficit. He states the last time his left arm work normally was yesterday. He denies any recent injury and has no fever or chills. Onset (ago): hour(s) Location: left arm History of same: Yes Severity: moderate Quality: weak Relieving factors: none Exacerbating factors: none On Anticoagulants: Yes Associated symptoms: denies other symptoms and weakness Treatments Prior to Arrival: none Related Data Home Medications Medication Instructions Recorded Confirmed warfarin [Coumadin] 1 mg PO BID 09/05/18 09/17/18 Previous Rx's Medication Instructions Recorded lisinopril 20 mg PO BID #60 tab 08/27/18 metoprolol tartrate 50 mg PO BID #60 tab 08/27/18 atorvastatin [Lipitor] 40 mg PO BEDTIME #30 tab 09/11/18 lisinopril 20 mg PO DAILY #30 tab 09/11/18 metoprolol tartrate 50 mg PO BID #60 tab 09/11/18 Allergies Allergy/AdvReac Type Severity Reaction Status Date / Time diltiazem Allergy Mild Hives Verified 09/04/18 13:41 Review of Systems Review of Systems All systems reviewed & are unremarkable except as noted in HPI and below Constitutional Denies chills, Denies fever(s), Denies lethargy and Reports weakness Eyes Denies change in vision, Denies eye discharge, Denies irritation and Denies loss of vision ENT Ears, Nose, Mouth, and Throat: Denies change in voice, Denies neck pain and Denies sore throat Cardiovascular Denies chest pain, Denies irregular heart rhythm, Denies lightheadedness, Denies palpitations, Denies dyspnea, Denies dyspnea on exertion and Denies orthopnea Respiratory Denies cough, Denies dyspnea, Denies dyspnea on exertion and Denies wheezing Gastrointestinal Gastrointestinal: Reports abdominal pain, Denies change in bowel habits, Denies diarrhea, Denies nausea and Denies vomiting Genitourinary Denies hematuria, Denies flank pain, Denies urinary incontinence and Denies urinary urgency Musculoskeletal Denies neck pain Integumentary/Breasts Denies pruritus, Denies erythema, Denies rash and Denies wounds Neurologic Denies confusion, Denies loss of vision and Reports weakness Psychiatric Denies anxiety, Denies confusion, Denies depression, Denies homicidal ideation and Denies suicidal ideation Endocrine Denies palpitations Hematologic/Lymphatic Denies easy bruising Allergic/Immunologic Denies wheezing [facility] Medical History Bilateral carotid artery stenosis (Acute) Cholecystitis with cholelithiasis (Acute) Choledocholithiasis (Acute) Gallstone pancreatitis (Acute) History of CVA (cerebrovascular accident) without residual deficits (Acute) History of tobacco abuse (Acute) Other severe protein-calorie malnutrition (Acute) Peripheral vascular disease (Acute) Retained gallstones following open cholecystectomy (Acute) Chronic cough (Chronic) Inguinal hernia (Chronic) Reducible right inguinal hernia (Chronic) Vocal cord polyps (Resolved) Surgical History Status post cholecystectomy (Acute) H/O inguinal hernia repair (Resolved) Family History Mother No known health problems Father No known health problems Social History household members: spouse and family Smoking Status: Current every day smoker alcohol intake: former Exam Narrative Exam Narrative: GENERAL: 78-year-old male, no obvious distress, states his abdominal pain is gone chronically ill-appearing. HEAD: Atraumatic. Normocephalic. No temporal or scalp tenderness. Temporal wasting EYES: Pupils equal round and reactive. Extraocular motions intact. No scleral icterus. No injection or drainage. ENT: Nose without bleeding, purulent drainage or septal hematoma. Throat without erythema, tonsillar hypertrophy or exudate. Uvula midline. Airway patent. NECK: Trachea midline. No JVD or lymphadenopathy. Supple, nontender, no meningeal signs. CARDIOVASCULAR: Regular rate and rhythm without murmurs, gallops, or rubs. RESPIRATORY: Clear to auscultation. Breath sounds equal bilaterally. No wheezes, rales, or rhonchi. GASTROINTESTINAL: Abdomen soft, non-tender, nondistended. No hepato-splenomegaly, or palpable masses. No guarding. Incision sites and tube insertion appear clean, dry and intact EXTREMITIES: No clubbing, cyanosis, or edema. No joint tenderness, effusion, or edema noted. BACK: Nontender without deformity or crepitance. No flank tenderness. NEURO: AOx3. SKIN: No rash or erythema. Initial Vital Signs Initial Vital Signs: Vital Signs Pulse Rate 71 09/16/18 18:44 Respiratory Rate 16 09/16/18 18:44 Blood Pressure 143/51 H 09/16/18 18:44 Pulse Oximetry 98 09/16/18 18:44 Scores NIH Stroke Scale Level of Conciousness: Alert, keenly responsive Ask month/age: Answers both questions correctly. Open/close eyes, close hand: Performs both tasks correctly Best gaze horizontal: Normal Visual betancourt: No visual loss Facial palsy: Normal symetrical movement Left arm drift: No movement Right arm drift: No drift for full 10 sec Left leg drift: No drift for full 10 sec Right leg drift: No drift for full 10 sec Limb ataxia: Absent Sensory on face/arms/legs: Normal, no sensory loss Best language: No aphasia, normal Dysarthria: Normal Extinction or inattention: No abnormality Total NIH Stroke scale score: 4 Course Orders Ordered: ED Orders 09/16/18 21:25 Urine Drug Screen, Rapid Stat 09/16/18 23:48 Consult to Discharge Planning Routine Consult to Occupational Therapy Evaluate & Treat Consult to Physical Therapy Evaluate & Treat Education, smoking cessation ONGOING 09/17/18 Basic Metabolic Panel Routine Complete Blood Count AUTO DIFF Routine 09/17/18 00:45 Partial Thromboplastin Time Stat 09/17/18 06:30 PTT [Partial Thromboplastin Time] Q6H 09/17/18 12:30 PTT [Partial Thromboplastin Time] Q6H 09/17/18 18:30 PTT [Partial Thromboplastin Time] Q6H 09/18/18 05:00 Hemoglobin and Hematocrit DAILY Acetaminophen (Tylenol) 650 mg PO Q6HR PRN PRN Reason: Fever Clopidogrel Bisulfate (Plavix) 75 mg PO DAILY NORMA Heparin Sodium (Porcine) (Heparin) 4,500 unit IV Q6H PRN; Protocol PRN Reason: protocol Sodium Chloride (Normal Saline 0.9%) 1,000 mls @ 80 mls/hr IV CONT NORMA Last Infusion: 09/16/18 22:05 Dose: 0 mls/hr Infusion: 09/16/18 19:35 Dose: 1,000 mls/hr Admin: 09/16/18 19:17 Dose: 150 mls/hr Heparin Sodium/Dextrose (Heparin Drip) 25,000 unit in 500 mls @ 20.196 mls/hr IV CONT NORMA; Protocol Last Admin: 09/17/18 01:22 Dose: 18 units/kg/hr, 20.196 mls/hr Discontinued Medications Aspirin (Aspirin) 325 mg PO NOW ONE Stop: 09/17/18 01:11 Last Admin: 09/17/18 01:36 Dose: 325 mg Heparin Sodium (Porcine) (Heparin) 0 unit IV Q6H PRN; Protocol PRN Reason: protocol Heparin Sodium (Porcine) (Heparin) 4,500 unit 80 unit/kg (4500 unit) IV NOW ONE Stop: 09/17/18 00:15 Last Admin: 09/17/18 01:15 Dose: 4,500 unit Sodium Chloride (Normal Saline 0.9%) 1,000 mls @ 1,000 mls/hr IV BOLUS ONE Stop: 09/16/18 20:17 Last Infusion: 09/16/18 23:47 Dose: 150 mls/hr Infusion: 09/16/18 22:09 Dose: 150 mls/hr Admin: 09/16/18 22:08 Dose: 1,000 mls/hr Consultations Consultation #1: I have spoken with stroke neurologist at [facility] regarding the patient's new neurologic findings and rather concerning findings on the CT a regarding right internal carotid which is now, newly occluded. She states that once fully occluded there is no specific intervention available, particularly after patient is outside the tPA window. 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 Lab Data Attestation: I reviewed the patient's lab results. Result diagrams: 09/16/18 19:00 09/16/18 19:00 Lab Results 09/16/18 09/16/18 09/16/18 Range/Units 19:00 19:00 19:00 WBC 11.0 (4.5-11.0) X10^3/uL RBC 4.76 (4.5-5.9) X10^6/uL Hgb 13.1 L (13.5-17.5) g/dL Hct 39.0 L (41-53) % MCV 81.9 (80-100) fL MCH 27.5 (26-34) PG MCHC 33.5 (30-36) % RDW 15.8 H (11.6-14.8) % Plt Count 157 (150-400) X10^3/uL Neut % (Auto) 91.8 H (50-75) % Lymph % (Auto) 1.6 L (25-40) % [place] % (Auto) 6.4 (3-14) % Eos % (Auto) 0.0 L (2-4) % Baso % (Auto) 0.2 (0-2) % Neut # (Auto) 85240 H (2865-7430) /uL PT 13.0 H (10.1-12.7) SECONDS INR 1.2 (0.9-1.3) APTT 28 D (26.4-36.2) SECONDS Sodium 137 (137-145) mmol/L Potassium 3.9 (3.4-5.1) mmol/L Chloride 96 L (98-107) mmol/L Carbon Dioxide 27 (22-32) mmol/L BUN 13 (9-20) mg/dL Creatinine 0.60 L (0.66-1.25) mg/dL Estimated GFR > 60.0 (>60) mL/min BUN/Creatinine Ratio 21.7 (6-22) Glucose 175 H (80-110) mg/dL Lactate (0.7-2.1) mmol/L Calcium 8.9 (8.4-10.2) mg/dL Total Bilirubin (0.2-1.3) mg/dL AST (17-59) IU/L ALT (21-72) IU/L Lipase (23-300) U/L Urine Opiates Screen (Negative) Ur Oxycodone Screen (Negative) Urine Methadone Screen (Negative) Ur Barbiturates Screen (Negative) U Tricyclic Antidepress (Negative) Ur Phencyclidine Scrn (Negative) Ur Amphetamines Screen (Negative) U Methamphetamines Scrn (Negative) Ur MDMA Scrn (Ecstasy) (Negative) U Benzodiazepines Scrn (Negative) Urine Cocaine Screen (Negative) U Marijuana (THC) Screen (Negative) 09/16/18 09/16/18 09/16/18 Range/Units 19:25 19:28 19:40 WBC (4.5-11.0) X10^3/uL RBC (4.5-5.9) X10^6/uL Hgb (13.5-17.5) g/dL Hct (41-53) % MCV (80-100) fL MCH (26-34) PG MCHC (30-36) % RDW (11.6-14.8) % Plt Count (150-400) X10^3/uL Neut % (Auto) (50-75) % Lymph % (Auto) (25-40) % Rolette % (Auto) (3-14) % Eos % (Auto) (2-4) % Baso % (Auto) (0-2) % Neut # (Auto) (4904-7748) /uL PT (10.1-12.7) SECONDS INR (0.9-1.3) APTT (26.4-36.2) SECONDS Sodium (137-145) mmol/L Potassium (3.4-5.1) mmol/L Chloride (98-107) mmol/L Carbon Dioxide (22-32) mmol/L BUN (9-20) mg/dL Creatinine (0.66-1.25) mg/dL Estimated GFR (>60) mL/min BUN/Creatinine Ratio (6-22) Glucose (80-110) mg/dL Lactate 1.9 (0.7-2.1) mmol/L Calcium (8.4-10.2) mg/dL Total Bilirubin 2.0 H (0.2-1.3) mg/dL AST 223 H (17-59) IU/L ALT 212 H (21-72) IU/L Lipase 170 (23-300) U/L Urine Opiates Screen (Negative) Ur Oxycodone Screen (Negative) Urine Methadone Screen (Negative) Ur Barbiturates Screen (Negative) U Tricyclic Antidepress (Negative) Ur Phencyclidine Scrn (Negative) Ur Amphetamines Screen (Negative) U Methamphetamines Scrn (Negative) Ur MDMA Scrn (Ecstasy) (Negative) U Benzodiazepines Scrn (Negative) Urine Cocaine Screen (Negative) U Marijuana (THC) Screen (Negative) 09/16/18 09/17/18 Range/Units 21:25 00:45 WBC (4.5-11.0) X10^3/uL RBC (4.5-5.9) X10^6/uL Hgb (13.5-17.5) g/dL Hct (41-53) % MCV (80-100) fL MCH (26-34) PG MCHC (30-36) % RDW (11.6-14.8) % Plt Count (150-400) X10^3/uL Neut % (Auto) (50-75) % Lymph % (Auto) (25-40) % Ro[place] % (Auto) (3-14) % Eos % (Auto) (2-4) % Baso % (Auto) (0-2) % Neut # (Auto) (8791-6658) /uL PT (10.1-12.7) SECONDS INR (0.9-1.3) APTT 30 D (26.4-36.2) SECONDS Sodium (137-145) mmol/L Potassium (3.4-5.1) mmol/L Chloride (98-107) mmol/L Carbon Dioxide (22-32) mmol/L BUN (9-20) mg/dL Creatinine (0.66-1.25) mg/dL Estimated GFR (>60) mL/min BUN/Creatinine Ratio (6-22) Glucose (80-110) mg/dL Lactate (0.7-2.1) mmol/L Calcium (8.4-10.2) mg/dL Total Bilirubin (0.2-1.3) mg/dL AST (17-59) IU/L ALT (21-72) IU/L Lipase (23-300) U/L Urine Opiates Screen Negative (Negative) Ur Oxycodone Screen Negative (Negative) Urine Methadone Screen Negative (Negative) Ur Barbiturates Screen Negative (Negative) U Tricyclic Antidepress Negative (Negative) Ur Phencyclidine Scrn Negative (Negative) Ur Amphetamines Screen Negative (Negative) U Methamphetamines Scrn Negative (Negative) Ur MDMA Scrn (Ecstasy) Negative (Negative) U Benzodiazepines Scrn Negative (Negative) Urine Cocaine Screen Negative (Negative) U Marijuana (THC) Screen Negative (Negative) Point of Care Testing Glucose POC 128 Urine Dip Bedside Urine Glucose Negative Bedside Urine Bilirubin + 1 Bedside Urine Ketone +/- 5 Urine Specific [place] 1.005 Bedside Urine Occult Blood - Negative Bedside Urine pH 7.5 Bedside Urine Protein + 30 Bedside Urine Urobilinogen 2+ 4mg Bedside Urine Nitrite - Negative Bedside Urine Leukocytes - Negative Esterase Imaging Data CT scan - head: Attestation: I personally reviewed and interpreted this imaging study as follows: Radiologist's impression: Chart [facility]er Diagnostics DATE TYPE STATUS AUTHOR Lucas 09/16/18 20:27 Taylor Cerrato 09/16/18 18:43 Taylor Cerrato 09/08/18 00:00 Liang Morales 09/05/18 06:00 Melissa Velarde 09/05/18 06:00 Mojgan Clark 08/24/18 00:00 Ellyn Aguilar 08/23/18 02:48 08/23/18 00:00 Mina Valentine 08/23/18 00:00 Taylor Cerrato 08/22/18 21:23 Taylor Cerrato 08/22/18 21:10 Mehdi Mehta 08/16/18 12:24 Toni Flores 08/13/18 00:00 Sonja Gerber 08/13/18 00:00 Sonja Gerber 08/07/18 13:39 Jose Alfredo Castellano 08/05/18 19:47 08/05/18 19:47 08/05/18 19:47 08/05/18 17:35 Melissa Velarde David A 78, M0 1940 ADM IN, AC 210 -1 177.8cm 56.1kg BSA: 1.70m? BMI: 17.7kg/m? Search Chart diltiazem Hives ONSET Today 03:40 [place] [address] CT Scan Report Signed Patient: Yair Kennedy [facility]#: [id number] : [id number]:[id number] Age/Sex: 78 / MDate of Service: 09/16/18 Loc: ED Accession Number: [id number] Procedure: CT angio head and neck Ordering Provider: Arnold Kramer D.O. PROCEDURE: CT ANGIO HEAD AND NECK INDICATIONS: new stroke symptoms. LUE completely flaccid since yesterday TECHNIQUE: Pre-contrast 4.5 mm thick sections acquired from the foramen magnum to the vertex. After the administration of intravenous contrast, 1 mm thick sections acquired from the aortic arch through the [place] of [place]. Post-contrast 4.5 mm thick sections then re-acquired from the foramen magnum to the vertex. 3-dimensional ceiiobq-myzascskl-dtykhoxexn (MIP) and/or volume rendering reformats were acquired of the central intracranial vasculature and neck separately. COMPARISON: [facility], CT, CT HEAD/BRAIN WO CON, 09/16/2018, 18:40. [facility], US, US CAROTID DOPPLER BI, 08/24/2018, 9:48. [facility], MR, MR STROKE, 08/23/2018, 10:22. FINDINGS: Image quality: Excellent. BRAIN: CSF spaces: Ventricles are normal in size and shape. Basal cisterns are patent. No extra-axial fluid collections. Brain: No midline shift. No intracranial bleeds or masses. Da Silva-white matter interface appears intact. Skull and face: Calvarium and facial bones appear intact, without suspicious lesions. Orbits appear normal. Sinuses: Severe right maxillary sinus mucoperiosteal thickening. Mastoid clear. HEAD CT ANGIOGRAPHY: Anterior circulation: Reconstituted flow is seen within the right cavernous internal carotid artery, which is moderately diffusely narrowed. Left internal carotid artery is mildly diffusely stenotic. The flow within the paired anterior cerebral arteries is normal and symmetric. The flow within the middle cerebral arteries is normal and symmetric. The anterior communicating artery is seen. No aneurysms are seen. Posterior circulation: Visualized portions of the vertebral arteries demonstrate normal caliber, and join to form a normal appearing basilar artery. Flow within the posterior cerebral arteries is normal and symmetric. No aneurysms are seen. NECK CT ANGIOGRAPHY: Carotid system: The great vessels demonstrate a conventional anatomy as they arise from the aortic arch. The origins of the common carotid arteries appear patent. The common carotid arteries demonstrate normal caliber and courses. The right internal carotid artery is occluded at its origin. There is reconstituted flow within the cavernous right internal carotid artery, which is moderately to severely diffusely narrowed. The high-grade, roughly 80% stenosis of the proximal left internal carotid artery is present, as before. Posterior circulation: Right vertebral artery is moderately stenotic at its origin. Left vertebral artery origin is patent. Left vertebral artery is small in caliber, as before. The more superior extracranial portions of both vertebral arteries also demonstrate normal courses and calibers. They join to form a normal appearing basilar artery. Soft tissues: Visualized neck soft tissues demonstrate no suspicious abnormalities. No change in left apical pulmonary densities. Severe biapical emphysema is present. Bones: No suspicious bony lesions. Visualized cervical spine appears normally aligned. IMPRESSION: 1. Occluded right internal carotid artery, new since the prior examination. 2. Reconstituted flow within the native of [place]. No evidence of acute infarction. 3. No change in high-grade left internal carotid artery stenosis. 4. Moderate right vertebral artery origin stenosis. Patent, small caliber left vertebral artery. 5. Chronic right maxillary sinus disease. 6. No change in left apical pulmonary densities, possibly indicating neoplasm. Emphysema. Any quantitative measurements of stenosis were performed using NASCET criteria. Dictated by: Taylor Cerrato M.D. on 09/16/2018 at 21:[address] [address] [address] Scan Report Signed Patient: Yair Kennedy [facility]#: [id number] : 2Acct:[id number] Age/Sex: 78 / MDate of Service: 09/16/18 Loc: ED Accession Number: [id number] Procedure: CT head/brain wo con Ordering Provider: Arnold Kramer D.O. PROCEDURE: CT HEAD/BRAIN WO CON INDICATIONS: new stroke symptoms TECHNIQUE: Noncontrast 4.5 mm thick angled axial sections acquired from the foramen magnum to the vertex, with coronal and sagittal reformats. For radiation dose reduction, the following was used: automated exposure control, adjustment of mA and/or kV according to patient size. COMPARISON: [facility], CT, CT HEAD/BRAIN WO CON, 09/05/2018, 6:00. FINDINGS: Image quality: Excellent. CSF spaces: Basal cisterns are patent. No extra-axial fluid collections. The ventricles are symmetric in size and shape. Brain: No intracranial bleeds or masses. There is cerebral volume loss for age, with resultant ventricular and sulcal prominence. There are periventricular and deep white matter chronic small vessel ischemic changes. There is intracranial internal carotid artery atherosclerosis. Skull and face: Calvarium and visualized facial bones appear intact, without suspicious lesions. Sinuses: Visualized sinuses and mastoids are clear. IMPRESSION: No acute process. Findings discussed with Dr. Kramer on 09.16.18 at 1857 hrs. Dictated by: Taylor Cerrato M.D. on 09/16/2018 at 18:56 Approved by: Taylor Cerrato M.D. on 09/16/2018 at 18:57 Discharge Plan Departure Patient Disposition: Admitted As Inpatient Clinical Impression: Stroke Discharge Date/Time: 09/16/18 23:49 Interventions: ED Discharge Assessment Last Done: 09/16/18 23:49 Admit Date/Time: 09/16/18 23:13 Admit Provider: Lambert Payton
--- NOTE | 2018-09-16 19:10 | ED_ITS ---
HPI - Neuro Symptoms/Deficit General Chief Complaint: Neuro Symptoms/Deficit Stated Complaint: Stroke Time Seen by Provider: 09/16/18 18:43 Source: patient and EMS Mode of arrival: EMS Limitations: no limitations History of Present Illness HPI Narrative: 78-year-old male, daily smoker presents by EMS for evaluation of generalized weakness, shaking, and left upper extremity weakness. He has had a very complicated recent medical history that seems to have started with a stroke and choledocholithiasis on Halloween. He has had multiple lengthy admissions in the interim. He is living back at home with his now and has felt poorly over the course of the day including generalized weakness and shakiness. His left upper extremity is flaccid but without sensory deficit. He states the last time his left arm work normally was yesterday. He denies any recent injury and has no fever or chills. Onset (ago): hour(s) Location: left arm History of same: Yes Severity: moderate Quality: weak Relieving factors: none Exacerbating factors: none On Anticoagulants: Yes Associated symptoms: denies other symptoms and weakness Treatments Prior to Arrival: none Related Data Home Medications Medication Instructions Recorded Confirmed warfarin [Coumadin] 1 mg PO BID 09/05/18 09/17/18 Previous Rx's Medication Instructions Recorded lisinopril 20 mg PO BID #60 tab 08/27/18 metoprolol tartrate 50 mg PO BID #60 tab 08/27/18 atorvastatin [Lipitor] 40 mg PO BEDTIME #30 tab 09/11/18 lisinopril 20 mg PO DAILY #30 tab 09/11/18 metoprolol tartrate 50 mg PO BID #60 tab 09/11/18 Allergies Allergy/AdvReac Type Severity Reaction Status Date / Time diltiazem Allergy Mild Hives Verified 09/04/18 13:41 Review of Systems Review of Systems All systems reviewed & are unremarkable except as noted in HPI and below Constitutional Denies chills, Denies fever(s), Denies lethargy and Reports weakness Eyes Denies change in vision, Denies eye discharge, Denies irritation and Denies loss of vision ENT Ears, Nose, Mouth, and Throat: Denies change in voice, Denies neck pain and Denies sore throat Cardiovascular Denies chest pain, Denies irregular heart rhythm, Denies lightheadedness, Denies palpitations, Denies dyspnea, Denies dyspnea on exertion and Denies orthopnea Respiratory Denies cough, Denies dyspnea, Denies dyspnea on exertion and Denies wheezing Gastrointestinal Gastrointestinal: Reports abdominal pain, Denies change in bowel habits, Denies diarrhea, Denies nausea and Denies vomiting Genitourinary Denies hematuria, Denies flank pain, Denies urinary incontinence and Denies urinary urgency Musculoskeletal Denies neck pain Integumentary/Breasts Denies pruritus, Denies erythema, Denies rash and Denies wounds Neurologic Denies confusion, Denies loss of vision and Reports weakness Psychiatric Denies anxiety, Denies confusion, Denies depression, Denies homicidal ideation and Denies suicidal ideation Endocrine Denies palpitations Hematologic/Lymphatic Denies easy bruising Allergic/Immunologic Denies wheezing [facility] Medical History Bilateral carotid artery stenosis (Acute) Cholecystitis with cholelithiasis (Acute) Choledocholithiasis (Acute) Gallstone pancreatitis (Acute) History of CVA (cerebrovascular accident) without residual deficits (Acute) History of tobacco abuse (Acute) Other severe protein-calorie malnutrition (Acute) Peripheral vascular disease (Acute) Retained gallstones following open cholecystectomy (Acute) Chronic cough (Chronic) Inguinal hernia (Chronic) Reducible right inguinal hernia (Chronic) Vocal cord polyps (Resolved) Surgical History Status post cholecystectomy (Acute) H/O inguinal hernia repair (Resolved) Family History Mother No known health problems Father No known health problems Social History household members: spouse and family Smoking Status: Current every day smoker alcohol intake: former Exam Narrative Exam Narrative: GENERAL: 78-year-old male, no obvious distress, states his abdominal pain is gone chronically ill-appearing. HEAD: Atraumatic. Normocephalic. No temporal or scalp tenderness. Temporal wasting EYES: Pupils equal round and reactive. Extraocular motions intact. No scleral icterus. No injection or drainage. ENT: Nose without bleeding, purulent drainage or septal hematoma. Throat without erythema, tonsillar hypertrophy or exudate. Uvula midline. Airway patent. NECK: Trachea midline. No JVD or lymphadenopathy. Supple, nontender, no meningeal signs. CARDIOVASCULAR: Regular rate and rhythm without murmurs, gallops, or rubs. RESPIRATORY: Clear to auscultation. Breath sounds equal bilaterally. No wheezes , rales, or rhonchi. GASTROINTESTINAL: Abdomen soft, non-tender, nondistended. No hepato-splenomegaly , or palpable masses. No guarding. Incision sites and tube insertion appear clean, dry and intact EXTREMITIES: No clubbing, cyanosis, or edema. No joint tenderness, effusion, or edema noted. BACK: Nontender without deformity or crepitance. No flank tenderness. NEURO: AOx3. SKIN: No rash or erythema. Initial Vital Signs Initial Vital Signs: Vital Signs Pulse Rate 71 09/16/18 18:44 Respiratory Rate 16 09/16/18 18:44 Blood Pressure 143/51 H 09/16/18 18:44 Pulse Oximetry 98 09/16/18 18:44 Scores NIH Stroke Scale Level of Conciousness: Alert, keenly responsive Ask month/age: Answers both questions correctly. Open/close eyes, close hand: Performs both tasks correctly Best gaze horizontal: Normal Visual betancourt: No visual loss Facial palsy: Normal symetrical movement Left arm drift: No movement Right arm drift: No drift for full 10 sec Left leg drift: No drift for full 10 sec Right leg drift: No drift for full 10 sec Limb ataxia: Absent Sensory on face/arms/legs: Normal, no sensory loss Best language: No aphasia, normal Dysarthria: Normal Extinction or inattention: No abnormality Total NIH Stroke scale score: 4 Course Orders Ordered: ED Orders 09/16/18 21:25 Urine Drug Screen, Rapid Stat 09/16/18 23:48 Consult to Discharge Planning Routine Consult to Occupational Therapy Evaluate & Treat Consult to Physical Therapy Evaluate & Treat Education, smoking cessation ONGOING 09/17/18 Basic Metabolic Panel Routine Complete Blood Count AUTO DIFF Routine 09/17/18 00:45 Partial Thromboplastin Time Stat 09/17/18 06:30 PTT [Partial Thromboplastin Time] Q6H 09/17/18 12:30 PTT [Partial Thromboplastin Time] Q6H 09/17/18 18:30 PTT [Partial Thromboplastin Time] Q6H 09/18/18 05:00 Hemoglobin and Hematocrit DAILY Acetaminophen (Tylenol) 650 mg PO Q6HR PRN PRN Reason: Fever Clopidogrel Bisulfate (Plavix) 75 mg PO DAILY NORMA Heparin Sodium (Porcine) (Heparin) 4,500 unit IV Q6H PRN; Protocol PRN Reason: protocol Sodium Chloride (Normal Saline 0.9%) 1,000 mls @ 80 mls/hr IV CONT NORMA Last Infusion: 09/16/18 22:05 Dose: 0 mls/hr Infusion: 09/16/18 19:35 Dose: 1,000 mls/hr Admin: 09/16/18 19:17 Dose: 150 mls/hr Heparin Sodium/Dextrose (Heparin Drip) 25,000 unit in 500 mls @ 20.196 mls/hr IV CONT NORMA; Protocol Last Admin: 09/17/18 01:22 Dose: 18 units/kg/hr, 20.196 mls/hr Discontinued Medications Aspirin (Aspirin) 325 mg PO NOW ONE Stop: 09/17/18 01:11 Last Admin: 09/17/18 01:36 Dose: 325 mg Heparin Sodium (Porcine) (Heparin) 0 unit IV Q6H PRN; Protocol PRN Reason: protocol Heparin Sodium (Porcine) (Heparin) 4,500 unit 80 unit/kg (4500 unit) IV NOW ONE Stop: 09/17/18 00:15 Last Admin: 09/17/18 01:15 Dose: 4,500 unit Sodium Chloride (Normal Saline 0.9%) 1,000 mls @ 1,000 mls/hr IV BOLUS ONE Stop: 09/16/18 20:17 Last Infusion: 09/16/18 23:47 Dose: 150 mls/hr Infusion: 09/16/18 22:09 Dose: 150 mls/hr Admin: 09/16/18 22:08 Dose: 1,000 mls/hr Consultations Consultation #1: I have spoken with stroke neurologist at [facility] regarding the patient's new neurologic findings and rather concerning findings on the CT a regarding right internal carotid which is now, newly occluded. She states that once fully occluded there is no specific intervention available, particularly after patient is outside the tPA window. 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 Lab Data Attestation: I reviewed the patient's lab results. Result diagrams: 09/16/18 19:00 09/16/18 19:00 Lab Results 09/16/18 09/16/18 09/16/18 Range/Units 19:00 19:00 19:00 WBC 11.0 (4.5-11.0) X10^3/uL RBC 4.76 (4.5-5.9) X10^6/uL Hgb 13.1 L (13.5-17.5) g/dL Hct 39.0 L (41-53) % MCV 81.9 (80-100) fL MCH 27.5 (26-34) PG MCHC 33.5 (30-36) % RDW 15.8 H (11.6-14.8) % Plt Count 157 (150-400) X10^3/uL Neut % (Auto) 91.8 H (50-75) % Lymph % (Auto) 1.6 L (25-40) % [place] % (Auto) 6.4 (3-14) % Eos % (Auto) 0.0 L (2-4) % Baso % (Auto) 0.2 (0-2) % Neut # (Auto) 39159 H (0841-9918) /uL PT 13.0 H (10.1-12.7) SECONDS INR 1.2 (0.9-1.3) APTT 28 D (26.4-36.2) SECONDS Sodium 137 (137-145) mmol/L Potassium 3.9 (3.4-5.1) mmol/L Chloride 96 L (98-107) mmol/L Carbon Dioxide 27 (22-32) mmol/L BUN 13 (9-20) mg/dL Creatinine 0.60 L (0.66-1.25) mg/dL Estimated GFR > 60.0 (>60) mL/min BUN/Creatinine Ratio 21.7 (6-22) Glucose 175 H (80-110) mg/dL Lactate (0.7-2.1) mmol/L Calcium 8.9 (8.4-10.2) mg/dL Total Bilirubin (0.2-1.3) mg/dL AST (17-59) IU/L ALT (21-72) IU/L Lipase (23-300) U/L Urine Opiates Screen (Negative) Ur Oxycodone Screen (Negative) Urine Methadone Screen (Negative) Ur Barbiturates Screen (Negative) U Tricyclic Antidepress (Negative) Ur Phencyclidine Scrn (Negative) Ur Amphetamines Screen (Negative) U Methamphetamines Scrn (Negative) Ur MDMA Scrn (Ecstasy) (Negative) U Benzodiazepines Scrn (Negative) Urine Cocaine Screen (Negative) U Marijuana (THC) Screen (Negative) 09/16/18 09/16/18 09/16/18 Range/Units 19:25 19:28 19:40 WBC (4.5-11.0) X10^3/uL RBC (4.5-5.9) X10^6/uL Hgb (13.5-17.5) g/dL Hct (41-53) % MCV (80-100) fL MCH (26-34) PG MCHC (30-36) % RDW (11.6-14.8) % Plt Count (150-400) X10^3/uL Neut % (Auto) (50-75) % Lymph % (Auto) (25-40) % [place] % (Auto) (3-14) % Eos % (Auto) (2-4) % Baso % (Auto) (0-2) % Neut # (Auto) (0186-9357) /uL PT (10.1-12.7) SECONDS INR (0.9-1.3) APTT (26.4-36.2) SECONDS Sodium (137-145) mmol/L Potassium (3.4-5.1) mmol/L Chloride (98-107) mmol/L Carbon Dioxide (22-32) mmol/L BUN (9-20) mg/dL Creatinine (0.66-1.25) mg/dL Estimated GFR (>60) mL/min BUN/Creatinine Ratio (6-22) Glucose (80-110) mg/dL Lactate 1.9 (0.7-2.1) mmol/L Calcium (8.4-10.2) mg/dL Total Bilirubin 2.0 H (0.2-1.3) mg/dL AST 223 H (17-59) IU/L ALT 212 H (21-72) IU/L Lipase 170 (23-300) U/L Urine Opiates Screen (Negative) Ur Oxycodone Screen (Negative) Urine Methadone Screen (Negative) Ur Barbiturates Screen (Negative) U Tricyclic Antidepress (Negative) Ur Phencyclidine Scrn (Negative) Ur Amphetamines Screen (Negative) U Methamphetamines Scrn (Negative) Ur MDMA Scrn (Ecstasy) (Negative) U Benzodiazepines Scrn (Negative) Urine Cocaine Screen (Negative) U Marijuana (THC) Screen (Negative) 09/16/18 09/17/18 Range/Units 21:25 00:45 WBC (4.5-11.0) X10^3/uL RBC (4.5-5.9) X10^6/uL Hgb (13.5-17.5) g/dL Hct (41-53) % MCV (80-100) fL MCH (26-34) PG MCHC (30-36) % RDW (11.6-14.8) % Plt Count (150-400) X10^3/uL Neut % (Auto) (50-75) % Lymph % (Auto) (25-40) % [place] % (Auto) (3-14) % Eos % (Auto) (2-4) % Baso % (Auto) (0-2) % Neut # (Auto) (4628-1158) /uL PT (10.1-12.7) SECONDS INR (0.9-1.3) APTT 30 D (26.4-36.2) SECONDS Sodium (137-145) mmol/L Potassium (3.4-5.1) mmol/L Chloride (98-107) mmol/L Carbon Dioxide (22-32) mmol/L BUN (9-20) mg/dL Creatinine (0.66-1.25) mg/dL Estimated GFR (>60) mL/min BUN/Creatinine Ratio (6-22) Glucose (80-110) mg/dL Lactate (0.7-2.1) mmol/L Calcium (8.4-10.2) mg/dL Total Bilirubin (0.2-1.3) mg/dL AST (17-59) IU/L ALT (21-72) IU/L Lipase (23-300) U/L Urine Opiates Screen Negative (Negative) Ur Oxycodone Screen Negative (Negative) Urine Methadone Screen Negative (Negative) Ur Barbiturates Screen Negative (Negative) U Tricyclic Antidepress Negative (Negative) Ur Phencyclidine Scrn Negative (Negative) Ur Amphetamines Screen Negative (Negative) U Methamphetamines Scrn Negative (Negative) Ur MDMA Scrn (Ecstasy) Negative (Negative) U Benzodiazepines Scrn Negative (Negative) Urine Cocaine Screen Negative (Negative) U Marijuana (THC) Screen Negative (Negative) Point of Care Testing Glucose POC 128 Urine Dip Bedside Urine Glucose Negative Bedside Urine Bilirubin + 1 Bedside Urine Ketone +/- 5 Urine Specific [place] 1.005 Bedside Urine Occult Blood - Negative Bedside Urine pH 7.5 Bedside Urine Protein + 30 Bedside Urine Urobilinogen 2+ 4mg Bedside Urine Nitrite - Negative Bedside Urine Leukocytes - Negative Esterase Imaging Data CT scan - head: Attestation: I personally reviewed and interpreted this imaging study as follows: Radiologist's impression: Chart Viewer Diagnostics DATE TYPE STATUS AUTHOR Lucas 09/16/18 20:27 Taylor Cerrato 09/16/18 18:43 Taylor Cerrato 09/08/18 00:00 Liang Morales 09/05/18 06:00 Melissa Velarde 09/05/18 06:00 Mojgan Clark 08/24/18 00:00 Ellyn Aguilar 08/23/18 02:48 08/23/18 00:00 Mina Valentine 08/23/18 00:00 Taylor Cerrato 08/22/18 21:23 Taylor Cerrato 08/22/18 21:10 Mehdi Mehta 08/16/18 12:24 Toni Flores 08/13/18 00:00 Sonja Gerber 08/13/18 00:00 Sonja Gerber 08/07/18 13:39 Jose Alfredo Castellano 08/05/18 19:47 08/05/18 19:47 08/05/18 19:47 08/05/18 17:35 Melissa Velarde David A 78, M0 1940 ADM IN, AC 210 -1 177.8cm 56.1kg BSA: 1.70m? BMI: 17.7kg/m? Search Chart diltiazem Hives ONSET Today 03:40 [place] [address] CT Scan Report Signed Patient: Yair Kennedy [facility]R#: [id number] : 1940cct:[id number] Age/Sex: 78 / MDate of Service: 09/16/18 Loc: ED Accession Number: [id number] Procedure: CT angio head and neck Ordering Provider: Arnold Kramer D.O. PROCEDURE: CT ANGIO HEAD AND NECK INDICATIONS: new stroke symptoms. LUE completely flaccid since yesterday TECHNIQUE: Pre-contrast 4.5 mm thick sections acquired from the foramen magnum to the vertex. After the administration of intravenous contrast, 1 mm thick sections acquired from the aortic arch through the [place]. Post-contrast 4.5 mm thick sections then re- acquired from the foramen magnum to the vertex. 3-dimensional maximum-intensity- projection (MIP) and/or volume rendering reformats were acquired of the central intracranial vasculature and neck separately. COMPARISON: [facility], CT, CT HEAD/BRAIN WO CON, 09/16/2018, 18:40. [facility], US, US CAROTID DOPPLER BI, 08/24/2018, 9:48. [facility], MR, MR STROKE, 08/23/2018, 10:22. FINDINGS: Image quality: Excellent. BRAIN: CSF spaces: Ventricles are normal in size and shape. Basal cisterns are patent. No extra-axial fluid collections. Brain: No midline shift. No intracranial bleeds or masses. Da Silva-white matter interface appears intact. Skull and face: Calvarium and facial bones appear intact, without suspicious lesions. Orbits appear normal. Sinuses: Severe right maxillary sinus mucoperiosteal thickening. Mastoid clear. HEAD CT ANGIOGRAPHY: Anterior circulation: Reconstituted flow is seen within the right cavernous internal carotid artery, which is moderately diffusely narrowed. Left internal carotid artery is mildly diffusely stenotic. The flow within the paired anterior cerebral arteries is normal and symmetric. The flow within the middle cerebral arteries is normal and symmetric. The anterior communicating artery is seen. No aneurysms are seen. Posterior circulation: Visualized portions of the vertebral arteries demonstrate normal caliber, and join to form a normal appearing basilar artery. Flow within the posterior cerebral arteries is normal and symmetric. No aneurysms are seen. NECK CT ANGIOGRAPHY: Carotid system: The great vessels demonstrate a conventional anatomy as they arise from the aortic arch. The origins of the common carotid arteries appear patent. The common carotid arteries demonstrate normal caliber and courses. The right internal carotid artery is occluded at its origin. There is reconstituted flow within the cavernous right internal carotid artery, which is moderately to severely diffusely narrowed. The high-grade, roughly 80% stenosis of the proximal left internal carotid artery is present, as before. Posterior circulation: Right vertebral artery is moderately stenotic at its origin. Left vertebral artery origin is patent. Left vertebral artery is small in caliber, as before. The more superior extracranial portions of both vertebral arteries also demonstrate normal courses and calibers. They join to form a normal appearing basilar artery. Soft tissues: Visualized neck soft tissues demonstrate no suspicious abnormalities. No change in left apical pulmonary densities. Severe biapical emphysema is present. Bones: No suspicious bony lesions. Visualized cervical spine appears normally aligned. IMPRESSION: 1. Occluded right internal carotid artery, new since the prior examination. 2. Reconstituted flow within the [place]. No evidence of acute infarction. 3. No change in high-grade left internal carotid artery stenosis. 4. Moderate right vertebral artery origin stenosis. Patent, small caliber left vertebral artery. 5. Chronic right maxillary sinus disease. 6. No change in left apical pulmonary densities, possibly indicating neoplasm. Emphysema. Any quantitative measurements of stenosis were performed using NASCET criteria. Dictated by: Taylor Cerrato M.D. on 09/16/2018 at 21:[address] [address] [address] Scan Report Signed Patient: Yair Kennedy [facility]#: [id number] : 2Acct:[id number] Age/Sex: 78 / MDate of Service: 09/16/18 Loc: ED Accession Number: [id number] Procedure: CT head/brain wo con Ordering Provider: Arnold Kramer D.O. PROCEDURE: CT HEAD/BRAIN WO CON INDICATIONS: new stroke symptoms TECHNIQUE: Noncontrast 4.5 mm thick angled axial sections acquired from the foramen magnum to the vertex, with coronal and sagittal reformats. For radiation dose reduction, the following was used: automated exposure control, adjustment of mA and/or kV according to patient size. COMPARISON: [facility], CT, CT HEAD/BRAIN WO CON, 09/05/2018, 6:00. FINDINGS: Image quality: Excellent. CSF spaces: Basal cisterns are patent. No extra-axial fluid collections. The ventricles are symmetric in size and shape. Brain: No intracranial bleeds or masses. There is cerebral volume loss for age , with resultant ventricular and sulcal prominence. There are periventricular and deep white matter chronic small vessel ischemic changes. There is intracranial internal carotid artery atherosclerosis. Skull and face: Calvarium and visualized facial bones appear intact, without suspicious lesions. Sinuses: Visualized sinuses and mastoids are clear. IMPRESSION: No acute process. Findings discussed with Dr. Kramer on 09.16.18 at 1857 hrs. Dictated by: Taylor Cerrato M.D. on 09/16/2018 at 18:56 Approved by: Taylor Cerrato M.D. on 09/16/2018 at 18:57 Discharge Plan Departure Patient Disposition: Admitted As Inpatient Clinical Impression: Stroke Discharge Date/Time: 09/16/18 23:49 Interventions: ED Discharge Assessment Last Done: 09/16/18 23:49 Admit Date/Time: 09/16/18 23:13 Admit Provider: Lambert Payton
[2018-09-16 19:14] LABS: Add Manual Diff / Slide Review NO; Basophils Percent Auto 0.2 % (0-2); Hemoglobin 13.1 g/dL (13.5-17.5); Lymphocytes Percent Auto 1.6 % (25-40); Mean Corpuscular HGB Conc 33.5 % (30-36); Mean Corpuscular Hemoglobin 27.5 PG (26-34); Mean Corpuscular Volume 81.9 fL (80-100); Monocytes Percent Auto 6.4 % (3-14); Neutrophils Absolute Auto 10100 /uL (3000-5900); Neutrophils Percent Auto 91.8 % (50-75); Platelet Count 157 X10^3/uL (150-400); Red Blood Cell Count 4.76 X10^6/uL (4.5-5.9); Red Cell Distribution Width 15.8 % (11.6-14.8)
[2018-09-16 19:16] LABS: INR 1.2 (0.9-1.3)
[2018-09-16] MEDS: SODIUM CHLORIDE 0.9% 1,000 ML 150 ML IV (19:17)
[2018-09-16 19:18] LABS: PTT Partial Thromboplastin Tim 28 SECONDS (26.4-36.2)
[2018-09-16 19:19] LABS: BUN Creatinine Ratio 21.7 (6-22); Blood Urea Nitrogen 13 mg/dL (9-20); Calcium 8.9 mg/dL (8.4-10.2); Carbon Dioxide 27 mmol/L (22-32); Chloride 96 mmol/L (98-107); Estimated Glomerular Filt Rate > 60.0 mL/min (>60); Glucose 175 mg/dL (80-110); HEMOLYSIS < 15 (0-50); Potassium 3.9 mmol/L (3.4-5.1); Sodium 137 mmol/L (137-145)
[2018-09-16 19:35] VITALS: TEMP 36.7
[2018-09-16 20:00] VITALS: BP 155/55; PULSE 117; RESP 27; O2SAT 96
[2018-09-16 20:12] LABS: Lactate (Lactic Acid) 1.9 mmol/L (0.7-2.1)
[2018-09-16 20:18] LABS: Alanine Aminotransferase 212 IU/L (21-72); Aspartate Aminotransferase 223 IU/L (17-59); Lipase 170 U/L (23-300)
--- NOTE | 2018-09-16 20:27 | DI.CT.S_ITS ---
PROCEDURE: CT ANGIO HEAD AND NECK INDICATIONS: new stroke symptoms. LUE completely flaccid since yesterday TECHNIQUE: Pre-contrast 4.5 mm thick sections acquired from the foramen magnum to the vertex. After the administration of intravenous contrast, 1 mm thick sections acquired from the aortic arch through the [place]. Post-contrast 4.5 mm thick sections then re-acquired from the foramen magnum to the vertex. 3-dimensional ankzkey-jxwwunvln-bnzkpbvkfs (MIP) and/or volume rendering reformats were acquired of the central intracranial vasculature and neck separately. COMPARISON: [facility], CT, CT HEAD/BRAIN WO CON, 09/16/2018, 18:40. [facility], US, US CAROTID DOPPLER BI, 08/24/2018, 9:48. [facility], MR, MR STROKE, 08/23/2018, 10:22. FINDINGS: Image quality: Excellent. BRAIN: CSF spaces: Ventricles are normal in size and shape. Basal cisterns are patent. No extra-axial fluid collections. Brain: No midline shift. No intracranial bleeds or masses. Da [place]-white matter interface appears intact. Skull and face: Calvarium and facial bones appear intact, without suspicious lesions. Orbits appear normal. Sinuses: Severe right maxillary sinus mucoperiosteal thickening. Mastoid clear. HEAD CT ANGIOGRAPHY: Anterior circulation: Reconstituted flow is seen within the right cavernous internal carotid artery, which is moderately diffusely narrowed. Left internal carotid artery is mildly diffusely stenotic. The flow within the paired anterior cerebral arteries is normal and symmetric. The flow within the middle cerebral arteries is normal and symmetric. The anterior communicating artery is seen. No aneurysms are seen. Posterior circulation: Visualized portions of the vertebral arteries demonstrate normal caliber, and join to form a normal appearing basilar artery. Flow within the posterior cerebral arteries is normal and symmetric. No aneurysms are seen. NECK CT ANGIOGRAPHY: Carotid system: The great vessels demonstrate a conventional anatomy as they arise from the aortic arch. The origins of the common carotid arteries appear patent. The common carotid arteries demonstrate normal caliber and courses. The right internal carotid artery is occluded at its origin. There is reconstituted flow within the cavernous right internal carotid artery, which is moderately to severely diffusely narrowed. The high-grade, roughly 80% stenosis of the proximal left internal carotid artery is present, as before. Posterior circulation: Right vertebral artery is moderately stenotic at its origin. Left vertebral artery origin is patent. Left vertebral artery is small in caliber, as before. The more superior extracranial portions of both vertebral arteries also demonstrate normal courses and calibers. They join to form a normal appearing basilar artery. Soft tissues: Visualized neck soft tissues demonstrate no suspicious abnormalities. No change in left apical pulmonary densities. Severe biapical emphysema is present. Bones: No suspicious bony lesions. Visualized cervical spine appears normally aligned. IMPRESSION: 1. Occluded right internal carotid artery, new since the prior examination. 2. Reconstituted flow within the [place]. No evidence of acute infarction. 3. No change in high-grade left internal carotid artery stenosis. 4. Moderate right vertebral artery origin stenosis. Patent, small caliber left vertebral artery. 5. Chronic right maxillary sinus disease. 6. No change in left apical pulmonary densities, possibly indicating neoplasm. Emphysema. Any quantitative measurements of stenosis were performed using NASCET criteria. Dictated by: Taylor Cerrato M.D. on 09/16/2018 at 21:23 Approved by: Taylor Cerrato M.D. on 09/16/2018 at 21:30
[2018-09-16 21:12] VITALS: BP 160/53; PULSE 119; RESP 30; O2SAT 97
[2018-09-16 21:40] LABS: Urine Amphetamines Negative (Negative); Urine Barbiturates Negative (Negative); Urine Benzodiazepines Negative (Negative); Urine Cocaine Negative (Negative); Urine MDMA Negative (Negative); Urine Methadone Negative (Negative); Urine Methamphetamines Negative (Negative); Urine Morphine/Opi cutoff 2000 Negative (Negative); Urine Oxycodone Negative (Negative); Urine Phencyclidine Negative (Negative); Urine Tetrahydrocannabinol Negative (Negative); Urine Tricyclic Antidepressant Negative (Negative)
[2018-09-16] MEDS: SODIUM CHLORIDE 0.9% 1,000 ML 1000 ML IV (22:08)
[2018-09-16 22:30] VITALS: BP 141/56; PULSE 112; RESP 27; O2SAT 96
--- NOTE | 2018-09-16 23:31 | PM.HP.1 ---
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 Patient presented to the ED on 09/16/2018 out of concern for inability to move his left upper extremity. Symptom onset 09/16/2018 at a time unknown to the patient. In ED LUE noted to be flaccid. NIHSS upon ED presentation is documented as 4. It is not clear if patient misunderstood the directions given to him by General surgery during 09/13 f/u appointment; however, patient reports stopping warfarin 2-3 days ago. Patient reports having abdominal discomfort earlier in the day. Also, reports experiencing generalized weakness. Fell asleep in the late afternoon and notes sleeping for about 3 hr, respectively. Woke up at 6:00 p.m. and at that time noted himself to be weak and having difficulty moving left upper extremity. Associated symptoms include: Denies experiencing headache, change in vision or loss of vision, slurred speech, facial numbness or extremity paresthesia. He has experienced 1 fall while being on Coumadin; however, no falls in the past 1 week. Reports baseline LLE weakness. Reports persistent and worsening weakness since his most recent hospitalization. His appetite is poor, has been tolerating nutritional shakes. Reports diminished appetite. Experienced weight loss of at least 45 lb in the past month. Recent Hospitalizations Biliary pancreatitis with retained distal CBD stone s/p open cholecystectomy and T-tube drainage. Tentative plan for ERCP on 10/02/2018. Followed by Dr. Lamb. 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 T-tube clamped. Declined SNF / rehab; declined PEG tube placement off Plavix for PEG tube placement, not restarted at discharge 09/13/2018 f/u outpatient with Dr. Lamb. Complained of abdominal pain after taking lisinopril (lisinopril stopped). Continues to be off Plavix. Asked to stop Coumadin 5 days prior to ERCP (after Dec 4th dose). ED workup consisted of a head CT, which was unremarkable for an acute intracranial process. He also had a CTA of the head and neck which revealed an occluded right internal carotid artery (new finding) and a high-grade stenosis (80%) of the left internal carotid artery. Dr. Kramer communicated discussing findings with the stroke team / neurologist (Dr. Garcia) at [facility] and patient was not deemed to be a candidate for tPA or carotid endarterectomy. Patient History Medical History Bilateral carotid artery stenosis (Acute) Cholecystitis with cholelithiasis (Acute) Choledocholithiasis (Acute) Gallstone pancreatitis (Acute) History of CVA (cerebrovascular accident) without residual deficits (Acute) History of tobacco abuse (Acute) Other severe protein-calorie malnutrition (Acute) Peripheral vascular disease (Acute) Retained gallstones following open cholecystectomy (Acute) Chronic cough (Chronic) Inguinal hernia (Chronic) Reducible right inguinal hernia (Chronic) Vocal cord polyps (Resolved) Surgical History Status post cholecystectomy (Acute) H/O inguinal hernia repair (Resolved) Family & Social History Family History Mother No known health problems Father No known health problems Social History: household members spouse Tobacco & Substance use: Tobacco type cigarettes Smoking Status Current every day smoker alcohol intake former alcohol intake frequency 0-2 drinks per day Substance Use Type does not use Meds Home Medications Medication Instructions Recorded Confirmed Type lisinopril 20 mg PO BID #60 tab 08/27/18 09/17/18 Rx metoprolol tartrate 50 mg PO BID #60 tab 08/27/18 09/17/18 Rx warfarin [Coumadin] 1 mg PO BID 09/05/18 09/17/18 History atorvastatin [Lipitor] 40 mg PO BEDTIME #30 tab 09/11/18 09/17/18 Rx lisinopril 20 mg PO DAILY #30 tab 09/11/18 09/17/18 Rx metoprolol tartrate 50 mg PO BID #60 tab 09/11/18 09/17/18 Rx Allergies Allergy/AdvReac Type Severity Reaction Status Date / Time diltiazem Allergy Mild Hives Verified 09/04/18 13:41 Review of Systems Review of Systems All systems reviewed & are unremarkable except as noted in HPI and below Exam Vital Signs (past 8 hours): - 09/16/18 18:44 09/16/18 19:35 09/16/18 20:00 Temperature 98.0 F Pulse Rate 71 117 H Respiratory Rate 16 27 H Blood Pressure 143/51 H Blood Pressure [Left Arm] 155/55 H Pulse Oximetry 98 96 09/16/18 21:12 09/16/18 22:30 Temperature Pulse Rate 119 H 112 H Respiratory Rate 30 H 27 H Blood Pressure Blood Pressure [Left Arm] 160/53 H 141/56 H Pulse Oximetry 97 96 Oxygen Delivery Method Room Air Narrative Exam Narrative: Exam Narrative: Constitutional: NAD Neurologic: AOx3 NIHSS score 6 Level of consciousness: Alert, keenly responsive Month / age: Answers correctly Commands: Performs both tasks correctly Best gaze: normal Visual: no visual loss Facial palsy: Minor paralysis of left corner of mouth +1 Left arm: No effort against gravity +3 Right arm: Normal, no drift Left leg: Drift present +1 Right leg: Normal, no drift Limb ataxia: absent Sensory: [id number] sensory loss LUE 1+ Best language: no aphasia Dysarthria: normal Extinction: no abnormality Head: NC, AT Eyes: PERRL, EOMI, sclera anicteric Ears: external ears normal, no otorrhea Nose: external nose normal, no rhinorhea or epistaxis Throat: DRY MM, oropharynx w/o exudate Neck: no masses, lymphadenopathy, or JVD Chest / Respiratory: equal chest rise, unlabored respiratory effort, no tachypnea, diminished breath sounds Heart / CV: S1S2, no murmur Abdomen / GI: round, NT, ND, + BS, no organomegaly; RUQ T-tube present, clamped (no overt drainage), insertion site free of s/s of infection : no suprapubic tenderness, no CVA tenderness Peripheral / Vascular: slightly cool to touch, DP palpable bilat (R 2+ and L 1+), right ankle / foot edema 2+ and left ankle / foot edema 1+ right and left femoral pulse present and palpable Musc: full ROM of RUE and BLE and limited ROM LUE; muscle bulk intact Skin: no ecchymosis or suspicious lesions / ulcers Objective Labs Result Diagrams: 09/17/18 06:30 09/17/18 06:30 Labs: Laboratory Results - last 24 hr 09/16/18 09/16/18 09/16/18 19:00 19:00 19:00 WBC 11.0 RBC 4.76 Hgb 13.1 L Hct 39.0 L MCV 81.9 MCH 27.5 MCHC 33.5 RDW 15.8 H Plt Count 157 Neut % (Auto) 91.8 H Lymph % (Auto) 1.6 L [place] % (Auto) 6.4 Eos % (Auto) 0.0 L Baso % (Auto) 0.2 Neut # (Auto) 49523 H PT 13.0 H INR 1.2 APTT 28 D Sodium 137 Potassium 3.9 Chloride 96 L Carbon Dioxide 27 BUN 13 Creatinine 0.60 L Estimated GFR > 60.0 BUN/Creatinine Ratio 21.7 Glucose 175 H Lactate Calcium 8.9 Total Bilirubin AST ALT Lipase Urine Opiates Screen Ur Oxycodone Screen Urine Methadone Screen Ur Barbiturates Screen U Tricyclic Antidepress Ur Phencyclidine Scrn Ur Amphetamines Screen U Methamphetamines Scrn Ur MDMA Scrn (Ecstasy) U Benzodiazepines Scrn Urine Cocaine Screen U Marijuana (THC) Screen 09/16/18 09/16/18 09/16/18 19:25 19:28 19:40 WBC RBC Hgb Hct MCV MCH MCHC RDW Plt Count Neut % (Auto) Lymph % (Auto) [place] % (Auto) Eos % (Auto) Baso % (Auto) Neut # (Auto) PT INR APTT Sodium Potassium Chloride Carbon Dioxide BUN Creatinine Estimated GFR BUN/Creatinine Ratio Glucose Lactate 1.9 Calcium Total Bilirubin 2.0 H AST 223 H ALT 212 H Lipase 170 Urine Opiates Screen Ur Oxycodone Screen Urine Methadone Screen Ur Barbiturates Screen U Tricyclic Antidepress Ur Phencyclidine Scrn Ur Amphetamines Screen U Methamphetamines Scrn Ur MDMA Scrn (Ecstasy) U Benzodiazepines Scrn Urine Cocaine Screen U Marijuana (THC) Screen 09/16/18 21:25 WBC RBC Hgb Hct MCV MCH MCHC RDW Plt Count Neut % (Auto) Lymph % (Auto) [place] % (Auto) Eos % (Auto) Baso % (Auto) Neut # (Auto) PT INR APTT Sodium Potassium Chloride Carbon Dioxide BUN Creatinine Estimated GFR BUN/Creatinine Ratio Glucose Lactate Calcium Total Bilirubin AST ALT Lipase Urine Opiates Screen Negative Ur Oxycodone Screen Negative Urine Methadone Screen Negative Ur Barbiturates Screen Negative U Tricyclic Antidepress Negative Ur Phencyclidine Scrn Negative Ur Amphetamines Screen Negative U Methamphetamines Scrn Negative Ur MDMA Scrn (Ecstasy) Negative U Benzodiazepines Scrn Negative Urine Cocaine Screen Negative U Marijuana (THC) Screen Negative Assessment & Plan Plan: Assessment/Plan Narrative: Embolic CVA the setting of an acute right cervical ICA occlusion - outside of the window for IV thrombolysis - NIHSS QShift and prn - neuro checks Q4H - Consult SP, PT, OT re: eval / treat - Give ASA 325 - Restart Plavix - Give heparin bolus and start heparin gtt per protocol - MR brain Right ICA occlusion (complete) - surgery or stenting was not recommended by neuro team at [facility] bedres - keep HOB flat or slightly lower than feet to augment blood flow to the head - avoid hypotension, will hold lisinopril and metoprolol - avoid dehydration, IVF at 80 ml/hr Severe left internal carotid artery stenosis, 80% - Consider evaluation by neuro surgery. Patient is a high risk for subsequent neurological events. 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 - trend BP - hold antihypertensive agents at this time in an effort to optimize cerebral perfusion Left cavitary lung mass on CT with concern for neoplastic process, needs further outpatient workup
--- NOTE | 2018-09-16 23:39 | P.HP_ITS ---
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 Patient presented to the ED on 09/16/2018 out of concern for inability to move his left upper extremity. Symptom onset 09/16/2018 at a time unknown to the patient. In ED LUE noted to be flaccid. NIHSS upon ED presentation is documented as 4. It is not clear if patient misunderstood the directions given to him by General surgery during 09/13 f/u appointment; however, patient reports stopping warfarin 2-3 days ago. Patient reports having abdominal discomfort earlier in the day. Also, reports experiencing generalized weakness. Fell asleep in the late afternoon and notes sleeping for about 3 hr, respectively. Woke up at 6:00 p.m. and at that time noted himself to be weak and having difficulty moving left upper extremity. Associated symptoms include: Denies experiencing headache, change in vision or loss of vision, slurred speech , facial numbness or extremity paresthesia. He has experienced 1 fall while being on Coumadin; however, no falls in the past 1 week. Reports baseline LLE weakness. Reports persistent and worsening weakness since his most recent hospitalization. His appetite is poor, has been tolerating nutritional shakes. Reports diminished appetite. Experienced weight loss of at least 45 lb in the past month. Recent Hospitalizations Biliary pancreatitis with retained distal CBD stone s/p open cholecystectomy and T-tube drainage. Tentative plan for ERCP on 10/02/2018. Followed by Dr. Lamb. 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 T- tube clamped. Declined SNF / rehab; declined PEG tube placement off Plavix for PEG tube placement, not restarted at discharge 09/13/2018 f/u outpatient with Dr. Lamb. Complained of abdominal pain after taking lisinopril (lisinopril stopped). Continues to be off Plavix. Asked to stop Coumadin 5 days prior to ERCP (after Dec 4th dose). ED workup consisted of a head CT, which was unremarkable for an acute intracranial process. 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 Dr. Kramer communicated discussing findings with the stroke team / neurologist (Dr. Garcia) at [facility] and patient was not deemed to be a candidate for tPA or carotid endarterectomy. Patient History Medical History Bilateral carotid artery stenosis (Acute) Cholecystitis with cholelithiasis (Acute) Choledocholithiasis (Acute) Gallstone pancreatitis (Acute) History of CVA (cerebrovascular accident) without residual deficits (Acute) History of tobacco abuse (Acute) Other severe protein-calorie malnutrition (Acute) Peripheral vascular disease (Acute) Retained gallstones following open cholecystectomy (Acute) Chronic cough (Chronic) Inguinal hernia (Chronic) Reducible right inguinal hernia (Chronic) Vocal cord polyps (Resolved) Surgical History Status post cholecystectomy (Acute) H/O inguinal hernia repair (Resolved) Family & Social History Family History Mother No known health problems Father No known health problems Social History: household members spouse Tobacco & Substance use: Tobacco type cigarettes Smoking Status Current every day smoker alcohol intake former alcohol intake frequency 0-2 drinks per day Substance Use Type does not use Meds Home Medications Medication Instructions Recorded Confirmed Type lisinopril 20 mg PO BID #60 tab 08/27/18 09/17/18 Rx metoprolol tartrate 50 mg PO BID #60 tab 08/27/18 09/17/18 Rx warfarin [Coumadin] 1 mg PO BID 09/05/18 09/17/18 History atorvastatin [Lipitor] 40 mg PO BEDTIME #30 tab 09/11/18 09/17/18 Rx lisinopril 20 mg PO DAILY #30 tab 09/11/18 09/17/18 Rx metoprolol tartrate 50 mg PO BID #60 tab 09/11/18 09/17/18 Rx Allergies Allergy/AdvReac Type Severity Reaction Status Date / Time diltiazem Allergy Mild Hives Verified 09/04/18 13:41 Review of Systems Review of Systems All systems reviewed & are unremarkable except as noted in HPI and below Exam Vital Signs (past 8 hours): - 09/16/18 18:44 09/16/18 19:35 09/16/18 20:00 Temperature 98.0 F Pulse Rate 71 117 H Respiratory Rate 16 27 H Blood Pressure 143/51 H Blood Pressure [Left Arm] 155/55 H Pulse Oximetry 98 96 09/16/18 21:12 09/16/18 22:30 Temperature Pulse Rate 119 H 112 H Respiratory Rate 30 H 27 H Blood Pressure Blood Pressure [Left Arm] 160/53 H 141/56 H Pulse Oximetry 97 96 Oxygen Delivery Method Room Air Narrative Exam Narrative: Exam Narrative: Constitutional: NAD Neurologic: AOx3 NIHSS score 6 Level of consciousness: Alert, keenly responsive Month / age: Answers correctly Commands: Performs both tasks correctly Best gaze: normal Visual: no visual loss Facial palsy: Minor paralysis of left corner of mouth +1 Left arm: No effort against gravity +3 Right arm: Normal, no drift Left leg: Drift present +1 Right leg: Normal, no drift Limb ataxia: absent Sensory: [id number] sensory loss LUE 1+ Best language: no aphasia Dysarthria: normal Extinction: no abnormality Head: NC, AT Eyes: PERRL, EOMI, sclera anicteric Ears: external ears normal, no otorrhea Nose: external nose normal, no rhinorhea or epistaxis Throat: DRY MM, oropharynx w/o exudate Neck: no masses, lymphadenopathy, or JVD Chest / Respiratory: equal chest rise, unlabored respiratory effort, no tachypnea, diminished breath sounds Heart / CV: S1S2, no murmur Abdomen / GI: round, NT, ND, + BS, no organomegaly; RUQ T-tube present, clamped (no overt drainage), insertion site free of s/s of infection : no suprapubic tenderness, no CVA tenderness Peripheral / Vascular: slightly cool to touch, DP palpable bilat (R 2+ and L 1+ ), right ankle / foot edema 2+ and left ankle / foot edema 1+ right and left femoral pulse present and palpable Musc: full ROM of RUE and BLE and limited ROM LUE; muscle bulk intact Skin: no ecchymosis or suspicious lesions / ulcers Objective Labs Result Diagrams: 09/17/18 06:30 09/17/18 06:30 Labs: Laboratory Results - last 24 hr 09/16/18 09/16/18 09/16/18 19:00 19:00 19:00 WBC 11.0 RBC 4.76 Hgb 13.1 L Hct 39.0 L MCV 81.9 MCH 27.5 MCHC 33.5 RDW 15.8 H Plt Count 157 Neut % (Auto) 91.8 H Lymph % (Auto) 1.6 L [place] % (Auto) 6.4 Eos % (Auto) 0.0 L Baso % (Auto) 0.2 Neut # (Auto) 46056 H PT 13.0 H INR 1.2 APTT 28 D Sodium 137 Potassium 3.9 Chloride 96 L Carbon Dioxide 27 BUN 13 Creatinine 0.60 L Estimated GFR > 60.0 BUN/Creatinine Ratio 21.7 Glucose 175 H Lactate Calcium 8.9 Total Bilirubin AST ALT Lipase Urine Opiates Screen Ur Oxycodone Screen Urine Methadone Screen Ur Barbiturates Screen U Tricyclic Antidepress Ur Phencyclidine Scrn Ur Amphetamines Screen U Methamphetamines Scrn Ur MDMA Scrn (Ecstasy) U Benzodiazepines Scrn Urine Cocaine Screen U Marijuana (THC) Screen 09/16/18 09/16/18 09/16/18 19:25 19:28 19:40 WBC RBC Hgb Hct MCV MCH MCHC RDW Plt Count Neut % (Auto) Lymph % (Auto) [place] % (Auto) Eos % (Auto) Baso % (Auto) Neut # (Auto) PT INR APTT Sodium Potassium Chloride Carbon Dioxide BUN Creatinine Estimated GFR BUN/Creatinine Ratio Glucose Lactate 1.9 Calcium Total Bilirubin 2.0 H AST 223 H ALT 212 H Lipase 170 Urine Opiates Screen Ur Oxycodone Screen Urine Methadone Screen Ur Barbiturates Screen U Tricyclic Antidepress Ur Phencyclidine Scrn Ur Amphetamines Screen U Methamphetamines Scrn Ur MDMA Scrn (Ecstasy) U Benzodiazepines Scrn Urine Cocaine Screen U Marijuana (THC) Screen 09/16/18 21:25 WBC RBC Hgb Hct MCV MCH MCHC RDW Plt Count Neut % (Auto) Lymph % (Auto) [place] % (Auto) Eos % (Auto) Baso % (Auto) Neut # (Auto) PT INR APTT Sodium Potassium Chloride Carbon Dioxide BUN Creatinine Estimated GFR BUN/Creatinine Ratio Glucose Lactate Calcium Total Bilirubin AST ALT Lipase Urine Opiates Screen Negative Ur Oxycodone Screen Negative Urine Methadone Screen Negative Ur Barbiturates Screen Negative U Tricyclic Antidepress Negative Ur Phencyclidine Scrn Negative Ur Amphetamines Screen Negative U Methamphetamines Scrn Negative Ur MDMA Scrn (Ecstasy) Negative U Benzodiazepines Scrn Negative Urine Cocaine Screen Negative U Marijuana (THC) Screen Negative Assessment & Plan Plan: Assessment/Plan Narrative: Embolic CVA the setting of an acute right cervical ICA occlusion - outside of the window for IV thrombolysis - NIHSS QShift and prn - neuro checks Q4H - Consult SP, PT, OT re: eval / treat - Give ASA 325 - Restart Plavix - Give heparin bolus and start heparin gtt per protocol - MR brain Right ICA occlusion (complete) - surgery or stenting was not recommended by neuro team at [facility] bedres - keep HOB flat or slightly lower than feet to augment blood flow to the head - avoid hypotension, will hold lisinopril and metoprolol - avoid dehydration, IVF at 80 ml/hr Severe left internal carotid artery stenosis, 80% - Consider evaluation by neuro surgery. Patient is a high risk for subsequent neurological events. 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 - trend BP - hold antihypertensive agents at this time in an effort to optimize cerebral perfusion Left cavitary lung mass on CT with concern for neoplastic process, needs further outpatient workup
[2018-09-16 23:49] VITALS: BP 145/55; PULSE 107; RESP 25; O2SAT 96
[2018-09-16 23:59] VITALS: BMI 17.7
[2018-09-17] VITALS (10 sets, daily range): BP systolic 106–174; BP diastolic 56–82; PULSE 85–109; RESP 18–20; TEMP 36.3–37.4; O2SAT 95–100
--- NOTE | 2018-09-17 | DI.MRI.S_ITS ---
PROCEDURE: MR STROKE Pre- and post-contrast brain MRI, non-contrast brain MR angiogram, pre- and postcontrast neck MR angiogram INDICATIONS: left arm weakness, R ICA occlusion TECHNIQUE: Brain: Noncontrast axial T1 spin echo, axial T2 fast spin echo, sagittal and axial FLAIR, coronal T2 fast spin echo, axial gradient echo, axial diffusion and ADC through the brain. After the administration of contrast, axial 3D VIBE of the cranial vasculature and brain. Brain MRA: Non-contrast 3-D time of flight MR angiogram, with multiple oqwfpfw-ewayiwrxh-oxxgdpdoqw (MIP) reformats performed. Neck MRA: Axial and sagittal TruFISP through the neck. Coronal dynamic MR angiogram during administration of contrast in the arterial and venous phases, with 3-dimenstional kstwkqv-xszwyzbls-cdmdsqczjo (MIP) reformats constructed from subtraction images. COMPARISON: [facility], CT, CT ANGIO HEAD AND NECK, 09/16/2018, 20:22. [facility], CT, CT HEAD/BRAIN WO CON, 09/16/2018, 18:40. [facility], CT, CT ANGIO ABD AORTA RUNOFF, 08/22/2018, 21:44. FINDINGS: Image quality: Excellent. BRAIN: The ventricular system and cortical sulci demonstrate atrophy, consistent for the patient's stated age. There are areas of increased T2/FLAIR signal intensity within the periventricular and subcortical white matter. There is no acute intra-or extra axial fluid collection. No acute hemorrhage, mass lesion or midline shift. Brainstem is unremarkable. There is a linear area of restricted diffusion within the superior right frontal lobe. This corresponds to hyperintense T2/FLAIR and hypointense ADC signal. Globes are symmetrical. Sinuses demonstrate minimal trace pansinus mucosal thickening, moderate to severe in the left maxillary with mucous cyst versus polyp. Osseous structures are intact. BRAIN MR ANGIOGRAM: The posterior circulation demonstrates a right vertebral artery dominance. Basilar artery and posterior cerebral arteries demonstrate no areas of hemodynamically significant stenosis, vascular occlusion or aneurysmal dilation. Posterior communicating arteries are within normal limits. The anterior circulation, including the anterior and middle cerebral arteries, as well as the left internal carotid arteries demonstrates no areas of hemodynamically significant stenosis, vascular occlusion or aneurysmal dilation. 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 There is occlusion of the intracranial right internal carotid artery. Flow is identified within the right middle cerebral artery, although asymmetrically diminished compared to the left side. NECK MR ANGIOGRAM: The origins of the left and right common and bilateral external carotid arteries demonstrate no areas of hemodynamically significant stenosis, vascular occlusion or aneurysmal dilation. There is occlusion of the right internal carotid artery origin. There is high grade stenosis approximately 80% within the proximal portion of the left internal carotid artery. Origins of the right vertebral artery demonstrates no areas of hemodynamically significant stenosis, vascular occlusion or aneurysmal dilation. Motion is present at the origin of the left vertebral artery, limiting evaluation. Aortic arch demonstrates conventional anatomy. Limited, visualized portions subclavian vasculature are unremarkable. IMPRESSION: 1. Small focus of restricted diffusion consistent with subacute ischemia in the superior right frontal lobe. No associated hemorrhage. 2. Moderate atrophy and chronic microvascular ischemic changes. 3. Occlusion of the right internal carotid artery from the origin. Very minimal flow is identified in the supraclinoid portion, likely retrograde flow from the [place]. 4. The right middle cerebral artery is patent although asymmetrically diminished flow compared to the left. 5. Approximate 80% stenosis at the origin of the left internal carotid artery, unchanged. Dictated by: Ellyn Aguilar M.D. on 09/17/2018 at 10:36 Approved by: Ellyn Aguilar M.D. on 09/17/2018 at 10:51
--- NOTE | 2018-09-17 00:57 | PC.NURSE ---
Admitted to room 210 from ER with a diagnosed of CVA. Denies any MORAN, CP & other discomfort. Noted left arm & hand without any movement, but can moved his lt. thumb. Also C/O numbness to LUE, reported had 2 falls at home. Fall precautions initiated & instructed pt. not to get OOB without any help. Pt. oriented to his room, showed how to use his call light, bed & TV controls. Will cont. POC & monitor. Informed pt. that we will start Heparin bolus & gtt. per hospitalist orders.
[2018-09-17 00:59] LABS: PTT Partial Thromboplastin Tim 30 SECONDS (26.4-36.2)
[2018-09-17] MEDS: HEPARIN 5,000 UNIT/ML VIAL 4500 UNIT IV (01:15)
[2018-09-17] MEDS: HEPARIN DRIP 25,000 UNIT/500 ML IV.SOLN 20.196 UNIT IV (01:22)
[2018-09-17] MEDS: ASPIRIN 325 MG TABLET PO (01:36)
--- NOTE | 2018-09-17 03:23 | PC.NURSE ---
0122 Heparin drip started & doses & rate verified by another RN. NR.MARCOS infusing @ 20.2 ml./hr. Also given @ bolus of 4,500 units of bolus Heparin @ 0115. Baseline APTT was 30 @ 0045, Pt. informed about his Heparin bolus & continuous infusion drip. Also given 325 mg. of Aspirin @ 0136 per hospitalist orders. No difficulty swallowing water & 1 tab.ASA. Will cont. POC & monitor.
--- NOTE | 2018-09-17 03:40 | PC.NURSE ---
4726 Pt. reported I'm able to moved my left arm now. Able to raised his lt. arm & touched his chest. No C/O CP, MORAN & other discomfort. Will continue to monitor.
[2018-09-17] MEDS: SODIUM CHLORIDE 0.9% 1,000 ML 80 ML IV (06:44)
[2018-09-17 06:46] LABS: Add Manual Diff / Slide Review NO; Basophils Percent Auto 0.3 % (0-2); Eosinophils Percent Auto 0.6 % (2-4); Hematocrit 33.6 % (41-53); Hemoglobin 11.2 g/dL (13.5-17.5); Lymphocytes Percent Auto 7.8 % (25-40); Mean Corpuscular HGB Conc 33.5 % (30-36); Mean Corpuscular Hemoglobin 27.3 PG (26-34); Mean Corpuscular Volume 81.6 fL (80-100); Monocytes Percent Auto 8.2 % (3-14); Neutrophils Absolute Auto 6900 /uL (3000-5900); Neutrophils Percent Auto 83.1 % (50-75); Platelet Count 141 X10^3/uL (150-400); Red Blood Cell Count 4.12 X10^6/uL (4.5-5.9); Red Cell Distribution Width 15.6 % (11.6-14.8); White Blood Cell Count 8.3 X10^3/uL (4.5-11.0)
[2018-09-17 06:55] LABS: Blood Urea Nitrogen 12 mg/dL (9-20); Calcium 7.9 mg/dL (8.4-10.2); Carbon Dioxide 25 mmol/L (22-32); Chloride 102 mmol/L (98-107); Estimated Glomerular Filt Rate > 60.0 mL/min (>60); Glucose 106 mg/dL (80-110); HEMOLYSIS < 15 (0-50); Potassium 3.4 mmol/L (3.4-5.1); Sodium 137 mmol/L (137-145)
[2018-09-17 07:08] LABS: PTT Partial Thromboplastin Tim 113 SECONDS (26.4-36.2)
[2018-09-17] MEDS: CLOPIDOGREL 75 MG TABLET PO (08:33)
--- NOTE | 2018-09-17 10:26 | PT.IIE ---
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) Surgical History (Last Reviewed 09/17/18 @ 13:21 by Tato Lamb MD) Status post cholecystectomy (Acute) H/O inguinal hernia repair (Resolved) Medical History (Last Reviewed 09/17/18 @ 13:21 by Tato Lamb MD) Bilateral carotid artery stenosis (Acute) Cholecystitis with cholelithiasis (Acute) Choledocholithiasis (Acute) Gallstone pancreatitis (Acute) History of CVA (cerebrovascular accident) without residual deficits (Acute) History of tobacco abuse (Acute) Other severe protein-calorie malnutrition (Acute) Peripheral vascular disease (Acute) Retained gallstones following open cholecystectomy (Acute) Chronic cough (Chronic) Inguinal hernia (Chronic) Reducible right inguinal hernia (Chronic) Vocal cord polyps (Resolved) Physical Therapy Inpatient Evaluation/Re-Eval M1 PT/OT-IP Prior Functional Status Start: 09/17/18 15:11 Freq: NEEDED Status: Active Protocol: Document 09/17/18 10:35 [facility] (Rec: 09/17/18 15:27 [facility] [id number]) Medical Review Prior Functional Status Medical History Reviewed Yes Mobility and Gait modified indep. ambulation with 4WW or FWW Activities of Daily Living and IADL's modified indep. ADLs Social History Household Members spouse family Living Arrangements House Number of Floors (Floors) One Floor Number of Stairs To Enter/Railing? ramped entry Home Environment Standard Height Toilet Tub/Shower Home Equipment Front Wheel Walker Four Wheel Walker Shower Seat without Backrest Grab Bars Near Toilet Grab Bars In Shower Additional Social History Comment pt with multiple recent admissions to including: open cholecystectomy and T- tube drain, CVA causing LLE weakness 08/23-08/27/18, 09/05- 09/10 generalized weakness. Pt now back to ER with c/o inability to move the LUE. Head/neck CTA- occluded R ICA and L ICA 80% stenosis. Surgery/stent placement not recommended by [facility]. Pt initially only able to move his L thumb, no other movement. M2 PT-IP Current Condition Start: 09/17/18 15:11 Freq: NEEDED Status: Active Protocol: Document 09/17/18 10:35 [facility] (Rec: 09/17/18 15:27 [facility] [id number]) Physical Therapy Current Condition Current Condition Evaluation Date 09/17/18 Treatment Diagnosis CVA, impaired mobility, LUE weakness Precautions Abdominal Surgery Precautions Log Roll Lifting Restrictions Gait Belt above Incisional Area Other Precautions T-tube R lower quadrant M3 PT-IP Subjective Start: 09/17/18 15:11 Freq: NEEDED Status: Active Protocol: Document 09/17/18 10:35 [facility] (Rec: 09/17/18 15:27 [facility] [id number]) Subjective Physical Therapy Visit Type Type Initial Evaluation Visit Start Time 10:09 Visit Stop Time 10:35 Total Visit Minutes 26 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 Pt declined OOB activity this morning due to being tired from all of the testing. Patient Goals get his LUE strength back M4 PT-IP Mobility and Gait Start: 09/17/18 15:11 Freq: NEEDED Status: Active Protocol: Document 09/17/18 10:35 [facility] (Rec: 09/17/18 15:27 [facility] [id number]) PT-Transfer Assessment Comments Mobility Comments refused this session Gait Assessment Comments Gait Comments refused this session PT-Balance Assessment Comments Other Balance Tests/Deviations/Treatment unable to assess this session : M5 PT-IP Objective Assessments Start: 09/17/18 15:11 Freq: NEEDED Status: Active Protocol: Document 09/17/18 10:35 [facility] (Rec: 09/17/18 15:27 [facility] [id number]) Orientation Orientation/Cognition Level of Alertness Alert Orientation Name Age Birthday Month Date Year Day of Week Place Situation Gross Range of Motion Upper Extremity ROM Assessment Left Impaired Impairments impaired AROM of the L shoulder but normal PROM Lower Extremity ROM Assessment Within Functional Limits Strength Upper Extremity Strength Assessment Left Impaired Shoulder flexion 2/5 L, abduction 3-/5 L Elbow flexion and extension 2+/5 L Wrist flexion and extensoin 2/5 L Lower Extremity Strength Assessment Left Impaired Hip flexion 4/5 L Knee flexion and extension 3+/5 L Ankle DF 4/5 L Comments Strength Comments pt with LUE 3rd digit flexion with increased tension (unable to open all of the way L hand ). Coordination Assessment Gross Coordination Gross Coordination Impaired Assessment Finger to Nose Test Severe Impairment Pronation/Supination Test Severe Impairment Foot Tapping Test Moderate Impairment Heel on Schultz Test Moderate Impairment Sensation Assessment Sensation Gross Sensation Left UE Impaired Muscle Tone Comments Muscle Tone Comments flaccid LUE except for increased tone in L hand/ fingers M6 PT-IP Treatment Start: 09/17/18 15:11 Freq: NEEDED Status: Active Protocol: Document 09/17/18 10:35 [facility] (Rec: 09/17/18 15:27 [facility] [id number]) Physical Therapy Treatment Exercises Exercises Elbow Flexion/Extension Wrist ROM Hand ROM Education Education Provided Safety Other Treatments Other Treatment Performed education on LUE ROM and isometrics (IR/ER), hand opening/position at rest M7 PT-IP Assessment and Plan Start: 09/17/18 15:11 Freq: NEEDED Status: Active Protocol: Document 09/17/18 10:35 [facility] (Rec: 09/17/18 15:27 [facility] [id number]) PT Summary Assessment and Plan Potential Rehabilitation Potential Fair Status of Condition at Evaluation Unstable Summary Impairments ROM Strength Coordination Tone Assessment Summary Pt refused OOB activity this assessment, but agreeable to be evaluated. Pt with significant weakness in LUE, but appears to be improving since presentation in the ER. Pt is R hand dominant. Pt still with LLE weakness from prior CVA recently, with residual weakness as well. Overall, pt is significantly below his prior level of function in relation to functional tasks related to the LUE. Will attempt to assess mobility next session later this date when agreeable . Goals Bed Mobility Goal Standby Assistance Transfer Goal Standby Assistance Gait Goal Standby Assistance Four Wheel Walker Gait Distance 150 Days to Meet Goals 6 Frequency of Treatment Frequency Of Treatment Twice a Day Treatment Plan Physical Therapy Treatment Plan Bed Mobility Training Transfer Training Gait Training Therapeutic Exercise Balance Retraining Neuromuscular Re-ed Other Recommendations and Next Treatment assess bed mobility, standing Focus balance, gait. Recommendations To Nursing Amount of Assist Needed PT/OT Assist Only Discharge Recommendations PT Discharge Recommendations SNF Rehab
--- NOTE | 2018-09-17 10:46 | PM.PN.1 ---
Subjective Date Patient Seen: 09/17/18 Time Patient Seen: 10:46 Interval history: Follow-up on left upper extremity weakness Patient seen at bedside. No acute overnight events. Patient feels like his left upper extremity weakness is improving-he is now able to move the extremity against gravity which he was not able to do on admission. No other complaints. Exam Vital Signs (past 8 hours): - 09/17/18 03:40 09/17/18 07:50 Temperature 98.1 F 97.4 F L Pulse Rate 94 H 91 H Respiratory Rate 20 18 Blood Pressure 106/62 144/66 H Pulse Oximetry 97 100 Oxygen Delivery Method Room Air Narrative Exam Narrative: General: No acute distress, A/O x3 HEENT: PERRLA bilaterally, EOMI bilaterally, moist mucous membranes Neck: Supple, no LAD or JVD CV: Regular rate rhythm, no murmurs or gallops Respiratory: CTA bilaterally, no crackles or wheezes GI: Positive bowel sounds in all 4 quadrants, no organomegaly, nontender to palpation Extremities: No edema Musculoskeletal: Left upper extremity weakness, 2/5 Neuro: Left upper extremity weakness, 2/5 strength. The other extremities strength are 5/5. Sensation is present all throughout Psych: Mood is appropriate Objective Labs Result Diagrams: 09/17/18 06:30 09/17/18 06:30 Labs: Laboratory Results - last 24 hr 09/16/18 09/16/18 09/16/18 19:00 19:00 19:00 WBC 11.0 RBC 4.76 Hgb 13.1 L Hct 39.0 L MCV 81.9 MCH 27.5 MCHC 33.5 RDW 15.8 H Plt Count 157 Neut % (Auto) 91.8 H Lymph % (Auto) 1.6 L [place] % (Auto) 6.4 Eos % (Auto) 0.0 L Baso % (Auto) 0.2 Neut # (Auto) 85696 H PT 13.0 H INR 1.2 APTT 28 D Sodium 137 Potassium 3.9 Chloride 96 L Carbon Dioxide 27 BUN 13 Creatinine 0.60 L Estimated GFR > 60.0 BUN/Creatinine Ratio 21.7 Glucose 175 H Lactate Calcium 8.9 Total Bilirubin AST ALT Lipase Urine Opiates Screen Ur Oxycodone Screen Urine Methadone Screen Ur Barbiturates Screen U Tricyclic Antidepress Ur Phencyclidine Scrn Ur Amphetamines Screen U Methamphetamines Scrn Ur MDMA Scrn (Ecstasy) U Benzodiazepines Scrn Urine Cocaine Screen U Marijuana (THC) Screen 09/16/18 09/16/18 09/16/18 19:25 19:28 19:40 WBC RBC Hgb Hct MCV MCH MCHC RDW Plt Count Neut % (Auto) Lymph % (Auto) [place] % (Auto) Eos % (Auto) Baso % (Auto) Neut # (Auto) PT INR APTT Sodium Potassium Chloride Carbon Dioxide BUN Creatinine Estimated GFR BUN/Creatinine Ratio Glucose Lactate 1.9 Calcium Total Bilirubin 2.0 H AST 223 H ALT 212 H Lipase 170 Urine Opiates Screen Ur Oxycodone Screen Urine Methadone Screen Ur Barbiturates Screen U Tricyclic Antidepress Ur Phencyclidine Scrn Ur Amphetamines Screen U Methamphetamines Scrn Ur MDMA Scrn (Ecstasy) U Benzodiazepines Scrn Urine Cocaine Screen U Marijuana (THC) Screen 09/16/18 09/17/18 09/17/18 21:25 00:45 06:30 WBC 8.3 RBC 4.12 L Hgb 11.2 L Hct 33.6 L MCV 81.6 MCH 27.3 MCHC 33.5 RDW 15.6 H Plt Count 141 L Neut % (Auto) 83.1 H Lymph % (Auto) 7.8 L [place] % (Auto) 8.2 Eos % (Auto) 0.6 L Baso % (Auto) 0.3 Neut # (Auto) 6900 H PT INR APTT 30 D Sodium Potassium Chloride Carbon Dioxide BUN Creatinine Estimated GFR BUN/Creatinine Ratio Glucose Lactate Calcium Total Bilirubin AST ALT Lipase Urine Opiates Screen Negative Ur Oxycodone Screen Negative Urine Methadone Screen Negative Ur Barbiturates Screen Negative U Tricyclic Antidepress Negative Ur Phencyclidine Scrn Negative Ur Amphetamines Screen Negative U Methamphetamines Scrn Negative Ur MDMA Scrn (Ecstasy) Negative U Benzodiazepines Scrn Negative Urine Cocaine Screen Negative U Marijuana (THC) Screen Negative 09/17/18 09/17/18 06:30 06:30 WBC RBC Hgb Hct MCV MCH MCHC RDW Plt Count Neut % (Auto) Lymph % (Auto) [place] % (Auto) Eos % (Auto) Baso % (Auto) Neut # (Auto) PT INR APTT 113 H* D Sodium 137 Potassium 3.4 Chloride 102 Carbon Dioxide 25 BUN 12 Creatinine 0.50 L Estimated GFR > 60.0 BUN/Creatinine Ratio 24.0 H Glucose 106 Lactate Calcium 7.9 L Total Bilirubin AST ALT Lipase Urine Opiates Screen Ur Oxycodone Screen Urine Methadone Screen Ur Barbiturates Screen U Tricyclic Antidepress Ur Phencyclidine Scrn Ur Amphetamines Screen U Methamphetamines Scrn Ur MDMA Scrn (Ecstasy) U Benzodiazepines Scrn Urine Cocaine Screen U Marijuana (THC) Screen Assessment & Plan Plan: Assessment/Plan Narrative: 1. Embolic CVA in the setting of an acute right cervical IC occlusion -patient was outside of window for IV thrombolysis -CT head revealed no acute intracranial process -CTA head and neck revealed complete occlusion of right internal carotid artery which is a new finding, and high-grade stenosis (80%) of the left internal carotid artery -patient is not a candidate for stenting or any other surgical intervention -continue frequent neuro checks -continue permissive hypertension allowance and tight blood glucose control -continue Plavix 75 mg p.o. daily (it is unclear as to why patient is not on aspirin as well...) -MRI brain pending -PT/OT/speech therapy on board, will follow up 2. 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 Paroxysmal atrial fibrillation -currently rate controlled -patient has been off warfarin for a week or so, which could be the reason for the new embolic event -patient currently is on heparin drip, will resume Coumadin 2.5 mg daily and monitor INRs -metoprolol is on hold due to permissive hypertension 4. Biliary pancreatitis/cholecystitis with common bile duct stone retention -patient has ERCP appointment 10/02/2018, during which time warfarin was supposed to be held 5 days prior -patient may need bridging with heparin or Lovenox prior to procedure 5. Tobacco use -continue nicotine patch 6. COPD -currently not in exacerbation -duo nebs as needed 7. Essential hypertension -blood pressure stable -continue to hold all blood pressure medications to allow permissive hypertension for 24 hrs and then resume home regimen -monitor blood pressure 8. 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
[2018-09-17 10:54] LABS: Acinetobacter baumannii Not Detected (Not Detect); Candida albicans Not Detected (Not Detect); Candida glabrata Not Detected (Not Detect); Candida krusei Not Detected (Not Detect); Candida parapsilosis Not Detected (Not Detect); Candida tropicalis Not Detected (Not Detect); E. coli Not Detected (Not Detect); Enterobacter cloacae complex Not Detected (Not Detect); Enterobacteriaceae species Detected (Not Detect); Enterococcus species Not Detected (Not Detect); Haemophilus influenzae Not Detected (Not Detect); KPC (carbapenem-resist gene) Not Detected (Not Detect); Listeria monocytogenes Not Detected (Not Detect); Neisseria meningitidis Not Detected (Not Detect); Proteus species Not Detected (Not Detect); Pseudomonas aeruginosa Not Detected (Not Detect); Serratia marcescens Not Detected (Not Detect); Staphylococcus species Not Detected (Not Detect); Streptococcus agalactiae (Gr B Not Detected (Not Detect); Streptococcus pneumonia Not Detected (Not Detect); Streptococcus pyogenes (Gr A) Not Detected (Not Detect); Streptococcus species Not Detected (Not Detect)
[2018-09-17] MEDS: CEFEPIME 2 GM in SODIUM CHLORIDE 0.9% 100 ML 200 ML IV ×2 (11:54→23:45)
[2018-09-17 13:12] LABS: Bacteria Urine None Seen
[2018-09-17 13:14] LABS: Bilirubin Urine UA 2+ (NEGATIVE); Glucose Urine UA NEGATIVE (Normal); Ketones Urine UA NEGATIVE (NEGATIVE); Leukocyte Esterase Urine UA NEGATIVE (NEGATIVE); Nitrite Urine UA NEGATIVE (Negative); Occult Blood Urine UA 2+ (Negative); Protein Urine UA TRACE (Negative); Specific Gravity Urine UA 1.015 (1.000-1.035); pH Urine UA 6.5 (4.5-8.0)
[2018-09-17 13:22] LABS: Appearance Urine UA CLOUDY; Color Urine UA Red
[2018-09-17 13:23] LABS: Ictotest Urine Positive (Negative)
[2018-09-17 13:25] LABS: Culture Indicated Urine Cult Not Indicated; RBC Urine 10-30/HPF (0-5/HPF); WBC Urine 1-5/HPF (0-5/HPF)
--- NOTE | 2018-09-17 13:28 | P.CONS_ITS ---
History of Present Illness Date Patient Seen: 09/17/18 Time Patient Seen: 13:15 Chief complaint: NEURO DEFICIT Reason for consult: Bacteremia and abdominal pain and acute stroke Requesting provider: Huma Madrigal Narrative: 78-year-old male with ongoing multiple medical issues who continues to return to the hospital via the emergency department with neurologic symptoms at home. He was seen in my office as an outpatient for surgical follow-up just 4 days ago and return to the ER late last night with a flaccid left upper extremity. He was completely unable to move his left upper extremity. 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 On further history it appears that the patient has been noncompliant with his warfarin therapy as an outpatient since leaving the hospital at the beginning of this week. It is unclear to me whether he misunderstood my directions regarding his anticoagulation therapy but regardless his INR was in the normal range at presentation last night. He has since been fully anticoagulated. In addition, his Plavix has been restarted which had been on hold for approximately the last week in anticipation of a PEG tube as well as ERCP. He did not require the PEG tube and continues to inform me that he has been eating at home without significant issue. He is also taking a daily Boost supplement. He denies any fever or chills. No chest pain or shortness of breath. This morning at the time of my consultation he is moving his left upper extremity with near full range of motion. However, he states that he still feels weak in the arm. Denies any symptoms such as weakness, numbness, or tingling elsewhere in any of his extremities. No visual changes. He reports no jaundice or acholic stools recently. Continues to have normal bowel and bladder function at home. Reports he is having some intermittent abdominal pain as well but this is not particularly different than what he was having when I saw him in the office several days ago. Nevertheless his evaluation in the emergency department earlier this morning has demonstrated positive blood cultures with gram-negative rods including Klebsiella and Enterobacter. Bilirubin is now 2.0 compared to 0.4 within the last week at the time of his hospitalization. Surgical consultation is now obtained regarding the bacteremia, intermittent abdominal pain, and elevated liver function tests in light of his recent cholecystectomy, bile duct exploration, and T-tube placement with retained common bile duct stone. [facility] Medical History Bilateral carotid artery stenosis (Acute) Cholecystitis with cholelithiasis (Acute) Choledocholithiasis (Acute) Gallstone pancreatitis (Acute) History of CVA (cerebrovascular accident) without residual deficits (Acute) History of tobacco abuse (Acute) Other severe protein-calorie malnutrition (Acute) Peripheral vascular disease (Acute) Retained gallstones following open cholecystectomy (Acute) Chronic cough (Chronic) Inguinal hernia (Chronic) Reducible right inguinal hernia (Chronic) Vocal cord polyps (Resolved) Surgical History Status post cholecystectomy (Acute) H/O inguinal hernia repair (Resolved) Family History Mother No known health problems Father No known health problems Social History household members: spouse and family Smoking Status: Current every day smoker alcohol intake: former Meds Home Medications Medication Instructions Recorded Confirmed Type lisinopril 20 mg PO BID #60 tab 08/27/18 09/17/18 Rx metoprolol tartrate 50 mg PO BID #60 tab 08/27/18 09/17/18 Rx warfarin [Coumadin] 1 mg PO BID 09/05/18 09/17/18 History atorvastatin [Lipitor] 40 mg PO BEDTIME #30 tab 09/11/18 09/17/18 Rx lisinopril 20 mg PO DAILY #30 tab 09/11/18 09/17/18 Rx metoprolol tartrate 50 mg PO BID #60 tab 09/11/18 09/17/18 Rx Allergies Allergy/AdvReac Type Severity Reaction Status Date / Time diltiazem Allergy Mild Hives Verified 09/04/18 13:41 Review of Systems Review of Systems All systems reviewed & are unremarkable except as noted in HPI and below Exam Vital Signs (past 8 hours): - 09/17/18 07:50 09/17/18 12:53 Temperature 97.4 F L 97.6 F Pulse Rate 91 H 85 Respiratory Rate 18 18 Blood Pressure 144/66 H 151/56 H Pulse Oximetry 100 97 Oxygen Delivery Method Room Air Narrative Exam Narrative: Thin male lying comfortably in bed in no acute distress watching television. is at the bedside. Patient is alert oriented x3 Speech is normal. No dysarthria. Cranial nerves 2-12 appear to be grossly intact Sclera nonicteric Chest is clear to auscultation Abdomen is soft and nondistended. He is minimally tender to palpation. Certainly no guarding or rebound. Wounds are all clean, dry, and intact and healing nicely. No erythema or ecchymosis. T-tube site is clean without drainage. Dhruv-Gutierrez drain site has closed since removal several days ago. No hepatomegaly. No ascites. Extremities show no clubbing or cyanosis. He moves all extremities including full range of motion of the left upper extremity. 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 Objective Labs Result Diagrams: 09/17/18 06:30 09/17/18 06:30 Labs: Laboratory Results - last 24 hr 09/16/18 09/16/18 09/16/18 19:00 19:00 19:00 WBC 11.0 RBC 4.76 Hgb 13.1 L Hct 39.0 L MCV 81.9 MCH 27.5 MCHC 33.5 RDW 15.8 H Plt Count 157 Neut % (Auto) 91.8 H Lymph % (Auto) 1.6 L Chambers % (Auto) 6.4 Eos % (Auto) 0.0 L Baso % (Auto) 0.2 Neut # (Auto) 55661 H PT 13.0 H INR 1.2 APTT 28 D Sodium 137 Potassium 3.9 Chloride 96 L Carbon Dioxide 27 BUN 13 Creatinine 0.60 L Estimated GFR > 60.0 BUN/Creatinine Ratio 21.7 Glucose 175 H Lactate Calcium 8.9 Total Bilirubin AST ALT Lipase Urine Opiates Screen Ur Oxycodone Screen Urine Methadone Screen Ur Barbiturates Screen U Tricyclic Antidepress Ur Phencyclidine Scrn Ur Amphetamines Screen U Methamphetamines Scrn Ur MDMA Scrn (Ecstasy) U Benzodiazepines Scrn Urine Cocaine Screen U Marijuana (THC) Screen A. baumannii (PCR) Helen albicans (PCR) C. glabrata (PCR) C. krusei (PCR) C. parapsilosis (PCR) C. tropicalis (PCR) Enterobacteriac sp PCR E. cloacae complex PCR Enterococcus sp PCR E. coli (PCR) H. influenzae (PCR) Klebsiella oxytoca PCR Klebsiella pneumoniae List. monocytogenes PCR N. meningitidis (PCR) Proteus species (PCR) Serratia marcescens PCR Staphylococcus sp PCR Staph aureus (PCR) mecA-Methicil Res Gene Streptococcus sp PCR Group A Strep (PCR) Strep agalactiae (PCR) Strep pneumoniae (PCR) P. aeruginosa (PCR) Zina/B-Vanco Res Genes KPC-Carbap Res Gene PCR 09/16/18 09/16/18 09/16/18 19:25 19:28 19:40 WBC RBC Hgb Hct MCV MCH MCHC RDW Plt Count Neut % (Auto) Lymph % (Auto) Chambers % (Auto) Eos % (Auto) Baso % (Auto) Neut # (Auto) PT INR APTT Sodium Potassium Chloride Carbon Dioxide BUN Creatinine Estimated GFR BUN/Creatinine Ratio Glucose Lactate 1.9 Calcium Total Bilirubin 2.0 H AST 223 H ALT 212 H Lipase 170 Urine Opiates Screen Ur Oxycodone Screen Urine Methadone Screen Ur Barbiturates Screen U Tricyclic Antidepress Ur Phencyclidine Scrn Ur Amphetamines Screen U Methamphetamines Scrn Ur MDMA Scrn (Ecstasy) U Benzodiazepines Scrn Urine Cocaine Screen U Marijuana (THC) Screen A. baumannii (PCR) Helen albicans (PCR) C. glabrata (PCR) C. krusei (PCR) C. parapsilosis (PCR) C. tropicalis (PCR) Enterobacteriac sp PCR E. cloacae complex PCR Enterococcus sp PCR E. coli (PCR) H. influenzae (PCR) Klebsiella oxytoca PCR Klebsiella pneumoniae List. monocytogenes PCR N. meningitidis (PCR) Proteus species (PCR) Serratia marcescens PCR Staphylococcus sp PCR Staph aureus (PCR) mecA-Methicil Res Gene Streptococcus sp PCR Group A Strep (PCR) Strep agalactiae (PCR) Strep pneumoniae (PCR) P. aeruginosa (PCR) Zina/B-Vanco Res Genes KPC-Carbap Res Gene PCR 09/16/18 09/16/18 09/17/18 19:40 21:25 00:45 WBC RBC Hgb Hct MCV MCH MCHC RDW Plt Count Neut % (Auto) Lymph % (Auto) Chambers % (Auto) Eos % (Auto) Baso % (Auto) Neut # (Auto) PT INR APTT 30 D Sodium Potassium Chloride Carbon Dioxide BUN Creatinine Estimated GFR BUN/Creatinine Ratio Glucose Lactate Calcium Total Bilirubin AST ALT Lipase Urine Opiates Screen Negative Ur Oxycodone Screen Negative Urine Methadone Screen Negative Ur Barbiturates Screen Negative U Tricyclic Antidepress Negative Ur Phencyclidine Scrn Negative Ur Amphetamines Screen Negative U Methamphetamines Scrn Negative Ur MDMA Scrn (Ecstasy) Negative U Benzodiazepines Scrn Negative Urine Cocaine Screen Negative U Marijuana (THC) Screen Negative A. baumannii (PCR) Not detected Helen albicans (PCR) Not detected C. glabrata (PCR) Not detected C. krusei (PCR) Not detected C. parapsilosis (PCR) Not detected C. tropicalis (PCR) Not detected Enterobacteriac sp PCR Detected H E. cloacae complex PCR Not detected Enterococcus sp PCR Not detected E. coli (PCR) Not detected H. influenzae (PCR) Not detected Klebsiella oxytoca PCR Detected H Klebsiella pneumoniae Not detected List. monocytogenes PCR Not detected N. meningitidis (PCR) Not detected Proteus species (PCR) Not detected Serratia marcescens PCR Not detected Staphylococcus sp PCR Not detected Staph aureus (PCR) Not detected mecA-Methicil Res Gene Not Reportable Streptococcus sp PCR Not detected Group A Strep (PCR) Not detected Strep agalactiae (PCR) Not detected Strep pneumoniae (PCR) Not detected P. aeruginosa (PCR) Not detected Zina/B-Vanco Res Genes Not Reportable KPC-Carbap Res Gene PCR Not detected 09/17/18 09/17/18 09/17/18 06:30 06:30 06:30 WBC 8.3 RBC 4.12 L Hgb 11.2 L Hct 33.6 L MCV 81.6 MCH 27.3 MCHC 33.5 RDW 15.6 H Plt Count 141 L Neut % (Auto) 83.1 H Lymph % (Auto) 7.8 L Chambers % (Auto) 8.2 Eos % (Auto) 0.6 L Baso % (Auto) 0.3 Neut # (Auto) 6900 H PT INR APTT 113 H* D Sodium 137 Potassium 3.4 Chloride 102 Carbon Dioxide 25 BUN 12 Creatinine 0.50 L Estimated GFR > 60.0 BUN/Creatinine Ratio 24.0 H Glucose 106 Lactate Calcium 7.9 L Total Bilirubin AST ALT Lipase Urine Opiates Screen Ur Oxycodone Screen Urine Methadone Screen Ur Barbiturates Screen U Tricyclic Antidepress Ur Phencyclidine Scrn Ur Amphetamines Screen U Methamphetamines Scrn Ur MDMA Scrn (Ecstasy) U Benzodiazepines Scrn Urine Cocaine Screen U Marijuana (THC) Screen A. baumannii (PCR) Helen albicans (PCR) C. glabrata (PCR) C. krusei (PCR) C. parapsilosis (PCR) C. tropicalis (PCR) Enterobacteriac sp PCR E. cloacae complex PCR Enterococcus sp PCR E. coli (PCR) H. influenzae (PCR) Klebsiella oxytoca PCR Klebsiella pneumoniae List. monocytogenes PCR N. meningitidis (PCR) Proteus species (PCR) Serratia marcescens PCR Staphylococcus sp PCR Staph aureus (PCR) mecA-Methicil Res Gene Streptococcus sp PCR Group A Strep (PCR) Strep agalactiae (PCR) Strep pneumoniae (PCR) P. aeruginosa (PCR) Zina/B-Vanco Res Genes KPC-Carbap Res Gene PCR I have personally reviewed all of his radiographic studies from this admission in the emergency department earlier today. Unfortunately he does have right internal carotid artery occlusion which is acute compared to most recent study within the last 1-2 weeks. He has an ongoing known at least 80% critical stenosis of the left internal carotid artery. [place] appears to be patent. Assessment & Plan Plan: Assessment/Plan Narrative: 78-year-old male with significant multiple comorbid medical conditions and complicated surgical history within the last month now presenting with stroke and acute right internal carotid artery occlusion likely due to inadequate anticoagulation. Fortunately he appears to be recovering neurologic function in the left upper extremity at this time. I would recommend somewhat urgent vascular surgery consultation once again in light of the acute right internal carotid artery stenosis. Once his current neurologic deficit has stabilized he may very well be a candidate for left internal carotid endarterectomy given the significant stenosis in that vessel and the contralateral occlusion. For now I completely agree with full anticoagulation and anti-platelet therapy. The tentative plan for ERCP with stone extraction on October 02, 2018 will be canceled, and I will discuss this with the gastroenterology service. Currently he is far too high risk for further stroke with permanent deficit or even without anticoagulation therapy. However, I am somewhat concerned that the stone may now be obstructing the distal common bile duct, but the duct is well controlled with the T-tube and I will simply replace it to gravity bag drainage which was done this morning. His bacteremia may be a result of early cholangitis so we will obtain bile for culture as well. I would plan to leave the T-tube to gravity indefinitely for now until the neurologic and vascular issues are completely resolved. He is now on broad-spectrum IV antibiotics, and we will continue to gauge his response to the above interventions. All the above discussed with the patient and his today. Case reviewed with the internal medicine service attending physician and the staff nurses today. All questions were answered to the patient's satisfaction, and he voiced understanding. We will proceed as above. Orders written.
--- NOTE | 2018-09-17 13:43 | PT.IPTN ---
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) Physical Therapy Treatment Note M2 PT-IP Current Condition Start: 09/17/18 15:11 Freq: NEEDED Status: Active Protocol: Document 09/17/18 13:43 [facility] (Rec: 09/17/18 15:34 [facility] [id number]) Physical Therapy Current Condition Current Condition Evaluation Date 09/17/18 Treatment Diagnosis CVA, impaired mobility, LUE weakness Precautions Abdominal Surgery Precautions Log Roll Lifting Restrictions Gait Belt above Incisional Area Other Precautions T-tube R lower quadrant M3 PT-IP Subjective Start: 09/17/18 15:11 Freq: NEEDED Status: Active Protocol: Document 09/17/18 13:43 [facility] (Rec: 09/17/18 15:34 [facility] [id number]) Subjective Physical Therapy Visit Type Type Treatment Note Visit Start Time 13:31 Visit Stop Time 13:43 Total Visit Minutes 12 Number of GAS UTILITY WORKER Visits 0 Physical Therapy Visit Comments Patient Comments pt agreeable to mobilize. M4 PT-IP Mobility and Gait Start: 09/17/18 15:11 Freq: NEEDED Status: Active Protocol: Document 09/17/18 13:43 [facility] (Rec: 09/17/18 15:34 [facility] [id number]) PT-Bed Mobility Assessment Supine to Sit Supine to Sit Contact Guard Assistance Bedrails Sit to Supine Sit to Supine Contact Guard Assistance Bedrails Scooting Scooting to Edge of Bed Standby Assistance PT-Transfer Assessment Sit to and From Stand Sit to and from Stand Standby Assistance Equipment Transfer Assistive Device Gait Belt Front Wheeled Walker Transfers Transfer Destination Bed Transfer Technique Stand Step Pivot Transfer Ability Level of Assist Contact Guard Assistance Comments Mobility Comments Mod A for LUE to remain on FWW (manager transport and WB through LUE). Gait Assessment Gait Gait Assistance Required: Contact Guard Assist Distance (Feet) 15 Assistive Devices Assistive Device Gait Belt Front Wheeled Walker Gait Deviations General Gait Pattern Decreased Stride Length Decreased Feet Clearance Narrow Based Gait Factors Limiting Gait Function Factors Limiting Gait Function Decreased Activity Tolerance Decreased Strength Poor Balance Comments Gait Comments assistance with maintaining LUE on FWW, LLE fatigue but no buckling PT-Balance Assessment Sitting Balance and Reactions Static Sitting Balance Ability Good Dynamic Sitting Balance Ability Good Standing Balance and Reactions Static Standing Balance Ability Fair Dynamic Standing Balance Ability Poor Device Used FWW M5 PT-IP Objective Assessments Start: 09/17/18 15:11 Freq: NEEDED Status: Active Protocol: Document 09/17/18 10:35 RCC (Rec: 09/17/18 15:27 [facility] [id number]) Orientation Orientation/Cognition Level of Alertness Alert Orientation Name Age Birthday Month Date Year Day of Week Place Situation Gross Range of Motion Upper Extremity ROM Assessment Left Impaired Impairments impaired AROM of the L shoulder but normal PROM Lower Extremity ROM Assessment Within Functional Limits Strength Upper Extremity Strength Assessment Left Impaired Shoulder flexion 2/5 L, abduction 3-/5 L Elbow flexion and extension 2+/5 L Wrist flexion and extensoin 2/5 L Lower Extremity Strength Assessment Left Impaired Hip flexion 4/5 L Knee flexion and extension 3+/5 L Ankle DF 4/5 L Comments Strength Comments pt with LUE 3rd digit flexion with increased tension (unable to open all of the way L hand ). Coordination Assessment Gross Coordination Gross Coordination Impaired Assessment Finger to Nose Test Severe Impairment Pronation/Supination Test Severe Impairment Foot Tapping Test Moderate Impairment Heel on Schultz Test Moderate Impairment Sensation Assessment Sensation Gross Sensation Left UE Impaired Muscle Tone Comments Muscle Tone Comments flaccid LUE except for increased tone in L hand/ fingers M6 PT-IP Treatment Start: 09/17/18 15:11 Freq: NEEDED Status: Active Protocol: Document 09/17/18 13:43 [facility] (Rec: 09/17/18 15:34 [facility] [id number]) Physical Therapy Treatment Exercises Exercises Elbow Flexion/Extension Wrist ROM Hand ROM M7 PT-IP Assessment and Plan Start: 09/17/18 15:11 Freq: NEEDED Status: Active Protocol: Document 09/17/18 13:43 [facility] (Rec: 09/17/18 15:34 [facility] [id number]) PT Summary Assessment and Plan Summary Assessment Summary Pt able to ambulate short distance in room with the use of FWW, but requires manual assistance to maintain the LUE in WB and manager transport on FWW on the L side. Pt's LLE fatigues with ambulation, but no buckling with short ambulation this session. Pt continues to require education on the importance of hand positioning and UE exercise to improve strength and manage tone. At this time, the pt is well below his prior functional baseline, and the burden of care is too high for the pt to safely return home. He would greatly benefit from SNF rehabiliation to progress his mobility, gait, strength, balance, and overall function. Goals Bed Mobility Goal Standby Assistance Transfer Goal Standby Assistance Gait Goal Standby Assistance Front Wheel Walker Gait Distance 150 Days to Meet Goals 5 Frequency of Treatment Frequency Of Treatment Twice a Day Treatment Plan Physical Therapy Treatment Plan Bed Mobility Training Transfer Training Gait Training Therapeutic Exercise Balance Retraining Discharge Planning Neuromuscular Re-ed Manual Therapy Recommendations To Nursing Amount of Assist Needed 1 Person Assist Discharge Recommendations PT Discharge Recommendations SNF Rehab
--- NOTE | 2018-09-17 14:15 | PC.NURSE ---
T tube drain insertion site cleansed and covered with non adherent dressing, not enough fluid collection in drain bag to send for culture yet. Will continue to follow and notify evening shift RN to collect.
--- NOTE | 2018-09-17 14:25 | CM.DANOTE ---
DCP: Case received, EMR reviewed and met with patient. Introduced self and role. DCP template completed with information currently available. Patient is a 78 year old who admitted yesterday evening to the care of the hospitalist team. PCP: Patient does not have a primary provider. Payer: confirmed: Medicare/ for Life Patient came to hospital yesterday evening via ambulance. Patient was recently here at hospital with CVA symptoms, and prior to this with Pancreatitis and Cholecystitis. Patient has had several co-morbidities, as well as nutritional deficits. Patient has not established with a provider, stated, I never did see a doctor because I never had to. Patient lives with his , Alana, who is very supportive. 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 For this reason, patient is reluctant to go to a rehab facility, which has been discussed previously, as well as today. , Alana, stated that patient had been doing somewhat better since he was recently here, and had a better appetite. Stated that his weight was up to 120. During last hospitalization, there was mention of possible Peg tube placement, which patient did not want. Patient had abdominal pain yesterday, according to . Went to lay down, and a few hours later, called for his and could not move his left arm, and had noted extreme left sided weakness. called EMS. Patient was also not taking his blood thinners, for he thought he was supposed to hold them until gallbladder procedure in Sep. 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 According to notes, patient would not yet be able to withstand Endarterectomy, which is what would be recommended to unclog arteries, due to his medical instabilities. Patient is also noted to have Bacteremia, which may be UTI related, as evidenced by blood cultures. P: DCP to follow closely. Patient does not have a regular provider, so home health would not be an option at this time. Skilled would be most appropriate for patient, as mentioned to him today, but he is still reluctant to go. Other option may be Hospice, which has not yet been discussed, but if son, would need to see if doable for at home. Cinda Kramer RN/Automatic Dry Starch Operator
--- NOTE | 2018-09-17 14:38 | PC.NURSE ---
Shift overview: Patient alert and oriented, pleasant and cooperative. Denies pain. Patient states some movement to his left arm is returning, denies numbness. MRI completed this morning. IV antibiotics started per orders. UA sent. Unable to obtain sputum sample (patient reports no sputum production) but patient aware of need with collection container at bedside. Drain fluid collection still needed.
[2018-09-17] MEDS: WARFARIN 2.5 MG TABLET PO (16:49)
[2018-09-17] MEDS: ATORVASTATIN 20 MG TABLET 40 MG PO (16:50)
--- NOTE | 2018-09-17 17:33 | PC.NURSE ---
Addendum entered by Boo Sofia R.N. 09/17/18 18:43: UPDATED ON CT RESULTS, NO NEW ORDERS, PATIENT AND UPDATED Original Note: Addendum entered by Boo Sofia R.N. 09/17/18 18:08: UPDATED ON NEW PTT AND VITAL NO NEW ORDERS ,WAITING CT RESULTS Original Note: PATIENT IS EATING DINNER, COMES OUT AND STATES HE IS SLURRING SPEECH, VITALS STABLE,RA SATS 98%, STILL ABLE TO MOVE LEFT LEG AND SLIGHT MOVEMENT AT SHOULDER, ABLE TO FOLLOW INSTRUCTIONS, UPDATED, PTT ORDERED FOR NOW AND ADJUST NEEDED TO HEP.DRIP. VITALS WILL BE CHECKED Q2HR
--- NOTE | 2018-09-17 17:40 | DI.CT.S_ITS ---
PROCEDURE: CT HEAD/BRAIN WO CON INDICATIONS: R/O BLEED TECHNIQUE: Noncontrast 4.5 mm thick angled axial sections acquired from the foramen magnum to the vertex, with coronal and sagittal reformats. For radiation dose reduction, the following was used: automated exposure control, adjustment of mA and/or kV according to patient size. COMPARISON: [facility], CT, CT HEAD/BRAIN WO CON, 09/16/2018, 18:40. FINDINGS: Image quality: Excellent. CSF spaces: Basal cisterns are patent. No extra-axial fluid collections. The ventricles are symmetric in size and shape. Brain: No intracranial bleeds or masses. There is cerebral volume loss for age, with resultant ventricular and sulcal prominence. There are periventricular and deep white matter chronic small vessel ischemic changes. There is intracranial internal carotid artery atherosclerosis. Evolving low attenuation in the right frontal lobe/kyle radiata/centrum semiovale, corresponding to areas of subacute ischemia on prior exam. Skull and face: Calvarium and visualized facial bones appear intact, without suspicious lesions. Sinuses: Visualized sinuses and mastoids are clear. IMPRESSION: 1. Expected evolution of subacute ischemia as previously identified without hemorrhage. Dictated by: Ellyn Aguilar M.D. on 09/17/2018 at 18:27 Approved by: Ellyn Aguilar M.D. on 09/17/2018 at 18:30
[2018-09-17 17:53] LABS: PTT Partial Thromboplastin Tim 66 SECONDS (26.4-36.2)
[2018-09-18] VITALS (8 sets, daily range): BP systolic 144–177; BP diastolic 75–120; PULSE 89–103; RESP 18–21; TEMP 36.3–37.2; O2SAT 95–100
[2018-09-18 07:37] LABS: INR 1.3 (0.9-1.3); Prothrombin Time 14.7 SECONDS (10.1-12.7)
[2018-09-18 07:38] LABS: Add Manual Diff / Slide Review NO; Basophils Percent Auto 0.2 % (0-2); Eosinophils Percent Auto 2.7 % (2-4); Hematocrit 31.3 % (41-53); Hemoglobin 10.4 g/dL (13.5-17.5); Lymphocytes Percent Auto 8.3 % (25-40); Mean Corpuscular HGB Conc 33.4 % (30-36); Mean Corpuscular Hemoglobin 27.2 PG (26-34); Mean Corpuscular Volume 81.5 fL (80-100); Monocytes Percent Auto 6.8 % (3-14); Neutrophils Absolute Auto 4600 /uL (3000-5900); Platelet Count 150 X10^3/uL (150-400); Red Blood Cell Count 3.84 X10^6/uL (4.5-5.9); Red Cell Distribution Width 15.6 % (11.6-14.8); White Blood Cell Count 5.7 X10^3/uL (4.5-11.0)
[2018-09-18 07:40] LABS: PTT Partial Thromboplastin Tim 63 SECONDS (26.4-36.2)
[2018-09-18] MEDS: HEPARIN DRIP 25,000 UNIT/500 ML IV.SOLN 20 UNIT IV (07:55)
[2018-09-18 08:01] LABS: Blood Urea Nitrogen 9 mg/dL (9-20); Calcium 7.6 mg/dL (8.4-10.2); Carbon Dioxide 24 mmol/L (22-32); Chloride 102 mmol/L (98-107); Estimated Glomerular Filt Rate > 60.0 mL/min (>60); Glucose 117 mg/dL (80-110); HEMOLYSIS < 15 (0-50); Potassium 2.9 mmol/L (3.4-5.1); Sodium 137 mmol/L (137-145)
--- NOTE | 2018-09-18 08:08 | PC.NURSE ---
Addendum entered by Sarah Shin R.N. 09/18/18 19:50: No change to Heparin gtt @ 1500, next draw at 0500 09/19 for PTT. Cont NPO status. Holding all PO meds. Original Note: Addendum entered by Sarah Shin R.N. 09/18/18 13:22: 1300-Dr Lamb into see Pt, updated on POC and decline. No orders at this time. Original Note: Addendum entered by Sarah Shin R.N. 09/18/18 10:14: Pt continues with facial droop and unable to use LUE, NIH done, at beside at start of shift. Went home briefly for rest. Hospitalist to see Pt , cancelled CT scan with contrast for the AM, may reschedule. Pt denies pain. Spo2 RA 94%, t tube drain in place, yellow fluid collecting to bag. Original Note: Am shift Assumed care of Pt. Lab results rec'd for Heparin gtt protocol. Increased Heparin to 20ml/hr and given 2000 unit bolus.
[2018-09-18] MEDS: SODIUM CHLORIDE 0.9% 1,000 ML 80 ML IV (08:40)
[2018-09-18] MEDS: HEPARIN DRIP 25,000 UNIT/500 ML IV.SOLN 22.44 UNIT IV (09:00)
--- NOTE | 2018-09-18 12:24 | OT.IP.EVAL ---
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) Past Medical History (Last Reviewed 09/17/18 @ 13:21 by Tato Lamb MD) Bilateral carotid artery stenosis (Acute) Cholecystitis with cholelithiasis (Acute) Choledocholithiasis (Acute) Gallstone pancreatitis (Acute) History of CVA (cerebrovascular accident) without residual deficits (Acute) History of tobacco abuse (Acute) Other severe protein-calorie malnutrition (Acute) Peripheral vascular disease (Acute) Retained gallstones following open cholecystectomy (Acute) Chronic cough (Chronic) Inguinal hernia (Chronic) Reducible right inguinal hernia (Chronic) Vocal cord polyps (Resolved) Surgical History (Last Reviewed 09/17/18 @ 13:21 by Tato Lamb MD) Status post cholecystectomy (Acute) H/O inguinal hernia repair (Resolved) Occupational Therapy Inpatient Evaluation/Re-Eval M1 PT/OT-IP Prior Functional Status Start: 09/17/18 15:11 Freq: NEEDED Status: Active Protocol: Document 09/18/18 12:24 PJLidia (Rec: 09/18/18 16:12 PJM [id number]) Medical Review Prior Functional Status Medical History Reviewed Yes Diet/Fluid Consistency Regular Communication WNL Mobility and Gait modified indep. ambulation with 4WW or FWW Activities of Daily Living and IADL's has been assisting pt with dressing and bathing at home due to recent illness Prior Functional Level (Other details) does all IADLS and driving. Social History Household Members spouse Living Arrangements House Number of Floors (Floors) One Floor Number of Stairs To Enter/Railing? not here to give details of home set up and pt unable to verbalize answers due to severe dysarthria. Home Equipment Front Wheel Walker Four Wheel Walker Employment Status Retired M2 OT-IP Current Condition Start: 09/18/18 15:44 Freq: Status: Active Protocol: Document 09/18/18 12:24 PJM (Rec: 09/18/18 16:12 PJM [id number]) Occupational Therapy Current Condition Current Condition Evaluation Date 09/18/18 Treatment Diagnosis new strokes w/LUE weakness, dysarthria, recent mary w/CBD stone, drain, 100% occluded R ICA, 80% occluded L ICA (not a candidate for surgery per chart notes) Diagnosis Onset Date 09/16/18, 09/17/18 Post Operative Precautions Abdominal Surgery Precautions Log Roll Lifting Restrictions Gait Belt above Incisional Area Other Precautions T-tube with gravity bag R lower quadrant, fall risk, NPO pending S.T. swallow eval, L cavitary lung mass concerning for neoplasm M3 OT- IP Subjective and Pain Start: 09/18/18 15:44 Freq: Status: Active Protocol: Document 09/18/18 12:24 PJM (Rec: 09/18/18 16:12 PJ NR) OT- Subjective Occupational Therapy Visit Type Type Initial Evaluation Visit Start Time 12:04 Visit Stop Time 12:24 Total Visit Minutes 20 Notes Pt drowsy in bed with minimal participation this session. Occupational Therapy Visit Comments Patient Comments speech very dysarthric and difficult to understand Patient/Caregiver Goals pt unable to verbalize goal this session OT Pain Assessment Pain When Pain Assessed After Treatment Pain Present Pain Present Denied Pain M4 OT- IP ADL's Start: 09/18/18 15:44 Freq: Status: Active Protocol: Document 09/18/18 12:24 PJM (Rec: 09/18/18 16:12 PJ NR) OT BUU-Meru-Nsthspg General Evaluation Diet Level for Self-Feeding NPO pending S.T. swallow eval OT ADL-Grooming General Evaluation Grooming Ability Maximum Assistance Areas Needing Assistance Face Washing OT ADL-Oral Care General Eval Oral Care Ability Maximum Assistance Devices Oral Care Devices Sponge/Foam Tipped Swab OT ADL-Dressing General Eval Upper Body Dressing Ability Total Assistance Lower Body Dressing Ability Total Assistance OT ADL-Toileting General Evaluation Toileting Ability Total Assistance Areas Needing Assistance Empty Catheter or Colostomy OT ADL-Bathing Bathing Type Bathing Type Bed Bath General Evaluation Bathing Ability Total Assistance M5 OT- IP IADL's Start: 09/18/18 15:44 Freq: Status: Active Protocol: Document 09/18/18 12:24 PJM (Rec: 09/18/18 16:12 [facility] NR) OT-Instrumental Activities of Daily Living Deficits IADL Deficits Identified Deficits Home Safety Awareness Awareness of Need for Assistance at Home Decreased Awareness Ability to Problem Solve Emergency Unable to Problem Solve Situations Medication Management Medication Management Caregiver Administers Money Management Money Management Caregiver Provides Assistance Meal Preparation Meal Preparation Caregiver Provides Assist Talent Sourcer Talent Sourcer Caregiver Provides Assist Driving Driving Caregiver Provides Assist M6 OT- IP Functional Cognition Start: 09/18/18 15:44 Freq: Status: Active Protocol: Document 09/18/18 12:24 PJM (Rec: 09/18/18 16:12 [facility] [id number]) Cognitive Factors Limiting Selfcare Function Cognitive Ability Level of Alertness Drowsy Lethargic Patient Orientation Name Attention Span Ability Unable to Focus Unable to Sustain Attention Ability to Follow Commands Able to Follow One Step Commands with Increased Time Able to Follow One Step Commands with Repetition Cognitive Comments Cognitive Assessment Comments Difficult to assess, but pt has been writing answers to questions with RN and P.T. Pt unwilling to try this technique this session. OT- Vision and Hearing OT- Vision Assessment Visual Acuity Glasses All The Time Visual Attentiveness Impaired Occular Pursuits Impaired Horizontal Vision Assessment Comments Pt needs max verbal cues to scan across midline to L. Difficulty opening L eye due to sticky discharge which was removed with warm washcloth. Minimal eye contact with therapist even to R of midline . M7 OT- IP Mobility and Balance Start: 09/18/18 15:44 Freq: Status: Active Protocol: Document 09/18/18 12:24 PJM (Rec: 09/18/18 16:12 [facility] [id number]) OT-Transfer Assessment Comments Mobility Comments did not occur this session, pt declined OT- Gait Assessment Comments Gait Ability Comments pt unable to ambulate at present OT- Balance Assessment Comments Other Balance Tests/Deviations/Treatment pt declined out of bed this : session M8 OT- IP Objective Assessments Start: 09/18/18 15:44 Freq: Status: Active Protocol: Document 09/18/18 12:24 PJM (Rec: 09/18/18 16:12 [facility] [id number]) OT Gross Range of Motion Upper Extremity Range of Motion Assessment Left Impaired ROM Impairments RUE WFL with shoulder scaption limited to 90 degrees by stiffness. LUE PROM WFL, Dupytren's contracture noted in L hand with decreased passive MP extension (-30 degrees from neutral) OT Strength Upper Extremity Strength Assessment Left Impaired Shoulder R 3/5 L 0/5 Elbow R 3+/5 flex/extension L 0/5 Wrist R 3+/5 L 0/5 Hand R 3+/5 L 0/5 Hand Wood Chopper Strength Hand Dominance Right Comments Strength Comments No voluntary movement elicited in LUE this session. OT- Coordination Assessment Comments Coordination Comments LUE/hand non functional at present OT-Muscle Tone Assessment Muscle Tone Location Left Upper Extremity Type of Tone Hypotonicity Comments Muscle Tone Comments LUE flaccid except for trace of increased tone in shoulder internal rotators OT Sensation Assessment Comments Summary Comments Difficult to assess due to decreased BRADEN , but appears to have significantly impaired sensation throughout LUE/hand Edema Edema Absent M9 OT- IP Assessment and Plan Start: 09/18/18 15:44 Freq: Status: Active Protocol: Document 09/18/18 12:24 PJM (Rec: 09/18/18 16:12 PJM [id number]) OT Summary Assessment and Plan Potential Analytic Complexity at Evaluation Moderate Summary OT Impairments Range of Motion Strength Balance Coordination Sensation Tone Functional Cognition Functional Mobility Self-Feeding Grooming Dressing Toileting Bathing Toilet Transfers Shower Transfers Assessment Summary Pt seen for moderate complexity assessment due to multiple co-morbidities and complex medical status. Pt is far below the level of function of 1 month ago when last seen by this therapist. Pt now presents with severe performance deficits in expressive communication due to dysarthria, severely impaired LUE function and decreased independence in all self care and functional mobility. Pt drowsy this session, but did follow one step commands with increased time. Pt currently needs 24 hr assist with high care needs and recommend SNF at d/c. Pt has declined this option in the past. Per chart notes, palliative care/hospice consult pending. Will provide trial of OT services to address goals below and modify OT plan of care as appropriate if pt/family choose hospice services. Goals Self-Feeding Goal Standby Assistance Grooming Goal Minimal Assistance Dressing Goal Moderate Assistance Toileting Goal Moderate Assistance Toilet Transfer Goal Moderate Assistance Bedside Commode OT-Other Goals Pt to feed self diet level recommended by S.T. if/when cleared for PO intake. Days to Meet Goals 10 Frequency of Treatment Frequency Of Treatment Once a Day Treatment Plan OT Treatment Plan ADL Training Functional Cognition Training Functional Mobility Neuromuscular Re-education Patient/Family Education Discharge Planning Discharge Recommendations OT Discharge Recommendations SNF Rehab Home Equipment Needs to be determined pending progress
--- NOTE | 2018-09-18 12:45 | PT.IPTN ---
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) Physical Therapy Treatment Note M2 PT-IP Current Condition Start: 09/17/18 15:11 Freq: NEEDED Status: Active Protocol: Document 09/17/18 13:43 [facility] (Rec: 09/17/18 15:34 [facility] [id number]) Physical Therapy Current Condition Current Condition Evaluation Date 09/17/18 Treatment Diagnosis CVA, impaired mobility, LUE weakness Precautions Abdominal Surgery Precautions Log Roll Lifting Restrictions Gait Belt above Incisional Area Other Precautions T-tube R lower quadrant M3 PT-IP Subjective Start: 09/17/18 15:11 Freq: NEEDED Status: Active Protocol: Document 09/18/18 12:44 (Rec: 09/18/18 12:45 [id number]) Subjective Physical Therapy Visit Type Type Treatment Note Notes PT rounded on pt at 10:30am. Pt speech is difficult to discern, but he is adamant in his refusal to work with PT this morning when PT attempted to ask pt verbally and written. Pt is educated in the benefits of PT. M4 PT-IP Mobility and Gait Start: 09/17/18 15:11 Freq: NEEDED Status: Active Protocol: Document 09/17/18 13:43 [facility] (Rec: 09/17/18 15:34 [facility] [id number]) PT-Bed Mobility Assessment Supine to Sit Supine to Sit Contact Guard Assistance Bedrails Sit to Supine Sit to Supine Contact Guard Assistance Bedrails Scooting Scooting to Edge of Bed Standby Assistance PT-Transfer Assessment Sit to and From Stand Sit to and from Stand Standby Assistance Equipment Transfer Assistive Device Gait Belt Front Wheeled Walker Transfers Transfer Destination Bed Transfer Technique Stand Step Pivot Transfer Ability Level of Assist Contact Guard Assistance Comments Mobility Comments Mod A for LUE to remain on FWW (mr teacher and WB through LUE). Gait Assessment Gait Gait Assistance Required: Contact Guard Assist Distance (Feet) 15 Assistive Devices Assistive Device Gait Belt Front Wheeled Walker Gait Deviations General Gait Pattern Decreased Stride Length Decreased Feet Clearance Narrow Based Gait Factors Limiting Gait Function Factors Limiting Gait Function Decreased Activity Tolerance Decreased Strength Poor Balance Comments Gait Comments assistance with maintaining LUE on FWW, LLE fatigue but no buckling PT-Balance Assessment Sitting Balance and Reactions Static Sitting Balance Ability Good Dynamic Sitting Balance Ability Good Standing Balance and Reactions Static Standing Balance Ability Fair Dynamic Standing Balance Ability Poor Device Used FWW M5 PT-IP Objective Assessments Start: 09/17/18 15:11 Freq: NEEDED Status: Active Protocol: Document 09/17/18 10:35 [facility] (Rec: 09/17/18 15:27 [facility] [id number]) Orientation Orientation/Cognition Level of Alertness Alert Orientation Name Age Birthday Month Date Year Day of Week Place Situation Gross Range of Motion Upper Extremity ROM Assessment Left Impaired Impairments impaired AROM of the L shoulder but normal PROM Lower Extremity ROM Assessment Within Functional Limits Strength Upper Extremity Strength Assessment Left Impaired Shoulder flexion 2/5 L, abduction 3-/5 L Elbow flexion and extension 2+/5 L Wrist flexion and extensoin 2/5 L Lower Extremity Strength Assessment Left Impaired Hip flexion 4/5 L Knee flexion and extension 3+/5 L Ankle DF 4/5 L Comments Strength Comments pt with LUE 3rd digit flexion with increased tension (unable to open all of the way L hand ). Coordination Assessment Gross Coordination Gross Coordination Impaired Assessment Finger to Nose Test Severe Impairment Pronation/Supination Test Severe Impairment Foot Tapping Test Moderate Impairment Heel on Schultz Test Moderate Impairment Sensation Assessment Sensation Gross Sensation Left UE Impaired Muscle Tone Comments Muscle Tone Comments flaccid LUE except for increased tone in L hand/ fingers M6 PT-IP Treatment Start: 09/17/18 15:11 Freq: NEEDED Status: Active Protocol: Document 09/17/18 13:43 [facility] (Rec: 09/17/18 15:34 [facility] [id number]) Physical Therapy Treatment Exercises Exercises Elbow Flexion/Extension Wrist ROM Hand ROM M7 PT-IP Assessment and Plan Start: 09/17/18 15:11 Freq: NEEDED Status: Active Protocol: Document 09/17/18 13:43 [facility] (Rec: 09/17/18 15:34 [facility] [id number]) PT Summary Assessment and Plan Summary Assessment Summary Pt able to ambulate short distance in room with the use of FWW, but requires manual assistance to maintain the LUE in WB and mr teacher on FWW on the L side. Pt's LLE fatigues with ambulation, but no buckling with short ambulation this session. Pt continues to require education on the importance of hand positioning and UE exercise to improve strength and manage tone. At this time, the pt is well below his prior functional baseline, and the burden of care is too high for the pt to safely return home. He would greatly benefit from SNF rehabiliation to progress his mobility, gait, strength, balance, and overall function. Goals Bed Mobility Goal Standby Assistance Transfer Goal Standby Assistance Gait Goal Standby Assistance Front Wheel Walker Gait Distance 150 Days to Meet Goals 5 Frequency of Treatment Frequency Of Treatment Twice a Day Treatment Plan Physical Therapy Treatment Plan Bed Mobility Training Transfer Training Gait Training Therapeutic Exercise Balance Retraining Discharge Planning Neuromuscular Re-ed Manual Therapy Recommendations To Nursing Amount of Assist Needed 1 Person Assist Discharge Recommendations PT Discharge Recommendations SNF Rehab
[2018-09-18] MEDS: CEFEPIME 2 GM in SODIUM CHLORIDE 0.9% 100 ML 200 ML IV (12:50)
--- NOTE | 2018-09-18 13:27 | PM.PN.1 ---
Subjective Date Patient Seen: 09/18/18 Time Patient Seen: 13:27 Interval history: Patient is sleeping at the time of my visit. is not present in the room currently. However, events of last night and early this morning are noted. Unfortunately, clinical situation appears as if he has evolving stroke. There is now some concern about dysphagia following his stroke. He appears to be having cough with swallowing. Awaiting speech evaluation. Exam Vital Signs (past 8 hours): - 09/18/18 06:21 09/18/18 07:58 09/18/18 11:00 Temperature 97.4 F L 97.5 F L 97.9 F Pulse Rate 91 H 90 89 Respiratory Rate 21 18 18 Blood Pressure 165/76 H 160/88 H 148/90 H Pulse Oximetry 95 95 98 Oxygen Delivery Method Room Air Oxygen Flow Rate 0 Narrative Exam Narrative: No documented fever since admission. Not tachycardic. Blood pressure is mildly hypertensive which would not be an unanticipated reflex for cerebral perfusion pressure following stroke Patient remains anticoagulated on heparin drip Remainder of examination is deferred as patient is sleeping following all the above overnight events Objective Labs Result Diagrams: 09/18/18 06:30 09/18/18 06:30 Labs: Laboratory Results - last 24 hr 09/17/18 09/18/18 09/18/18 17:35 06:30 06:30 WBC 5.7 RBC 3.84 L Hgb 10.4 L Hct 31.3 L MCV 81.5 MCH 27.2 MCHC 33.4 RDW 15.6 H Plt Count 150 Neut % (Auto) 82.0 H Lymph % (Auto) 8.3 L [place] % (Auto) 6.8 Eos % (Auto) 2.7 Baso % (Auto) 0.2 Neut # (Auto) 4600 PT INR APTT 66 H D Sodium 137 Potassium 2.9 L Chloride 102 Carbon Dioxide 24 BUN 9 Creatinine 0.50 L Estimated GFR > 60.0 BUN/Creatinine Ratio 18.0 Glucose 117 H Calcium 7.6 L 09/18/18 06:30 WBC RBC Hgb Hct MCV MCH MCHC RDW Plt Count Neut % (Auto) Lymph % (Auto) [place] % (Auto) Eos % (Auto) Baso % (Auto) Neut # (Auto) PT 14.7 H INR 1.3 APTT 63 H Sodium Potassium Chloride Carbon Dioxide BUN Creatinine Estimated GFR BUN/Creatinine Ratio Glucose Calcium Blood cultures are significant for Klebsiella and Enterobacter. Bile culture sent yesterday shows gram-negative rods. I suspect that the source of his bacteremia is cholangitis due to partially obstructing stone. Assessment & Plan Plan: Assessment/Plan Narrative: 78-year-old unfortunate male with significant complicated postoperative course now with evolving stroke despite aggressive anticoagulation. His current situation is also complicated by bacteremia likely due to cholangitis, but the bile duct has been decompressed since admission with the T tube to gravity. We will repeat his CMP tomorrow. Clearly we will need to defer his planned ERCP tentatively scheduled for October 02, 2018. I am awaiting a call from the gastroenterology service regarding such. Obviously the more acute pressing issue is his cardiovascular disease, intracranial vascular disease, and stroke. If he has evidence of dysphagia that he may require enteral access for tube feeding, but this will be significantly complicated in light of his anticoagulation needs. We will await the speech pathology evaluation. Continue T-tube to gravity drainage. Agree with broad-spectrum antibiotics currently as he appears to be responding to such. Continue to follow for ongoing surgical needs during this admission. Quality VTE Deep Vein Thrombosis/Pulmonary Embolism Present on Admission: No
--- NOTE | 2018-09-18 15:30 | PM.PN.1 ---
Subjective Date Patient Seen: 09/18/18 Time Patient Seen: 10:30 Interval history: denied any cp/sb having some diff with speech unable to move left upper ext no sob/cough no chest palpitations Exam Vital Signs (past 8 hours): - 09/18/18 07:58 09/18/18 11:00 Temperature 97.5 F L 97.9 F Pulse Rate 90 89 Respiratory Rate 18 18 Blood Pressure 160/88 H 148/90 H Pulse Oximetry 95 98 Oxygen Delivery Method Room Air Oxygen Flow Rate 0 Const General: cooperative and comfortable Orientation: alert, awake and oriented to place [facility] Head: normal to inspection, normocephalic and atraumatic Eyes Eyelids: eyelids normal Conjunctivae: conjunctivae normal Sclera: sclerae normal Pupils: PERRL Neck Neck: full ROM and no meningeal signs Carotids: delayed carotid upstroke and bruit Chest Chest: normal inspection of the chest and normal palpation of entire chest wall Resp Effort & Inspection: cough Auscultation: diminished lung sounds (at the bases) bilaterally Cardio Palpation: normal PMI Rate: regular rate Heart Sounds: S1 normal and S2 normal GI Palpation: soft Percussion: normal to percussion Auscultation: hyperactive bowel sounds External: normal external exam Testes: normal Back/Spine/Pelvis Thoracic/Lumbar Spine: thoracic and lumbar spine normal to inspection Sacroiliac Joints: nontender Skin General: no rashes or lesions noted Lesions: no lesions Rashes: no rashes Trauma: no lacerations or abrasions Neuro Other: Patient is unable to move his left upper extremity Has some movement of the left lower leg Has has difficulty with speech His significant cranial nerve deficit Poor gait Weakness on the left lower extremities. With inability to move the left upper extremity Extrem General: normal to inspection and full ROM Psych Speech and Movement: pressured speech Affect: normal affect Judgment: fair Objective Labs Result Diagrams: 09/18/18 06:30 09/18/18 06:30 Labs: Laboratory Results - last 24 hr 09/17/18 09/18/18 09/18/18 17:35 06:30 06:30 WBC 5.7 RBC 3.84 L Hgb 10.4 L Hct 31.3 L MCV 81.5 MCH 27.2 MCHC 33.4 RDW 15.6 H Plt Count 150 Neut % (Auto) 82.0 H Lymph % (Auto) 8.3 L [place] % (Auto) 6.8 Eos % (Auto) 2.7 Baso % (Auto) 0.2 Neut # (Auto) 4600 PT INR APTT 66 H D Sodium 137 Potassium 2.9 L Chloride 102 Carbon Dioxide 24 BUN 9 Creatinine 0.50 L Estimated GFR > 60.0 BUN/Creatinine Ratio 18.0 Glucose 117 H Calcium 7.6 L 09/18/18 06:30 WBC RBC Hgb Hct MCV MCH MCHC RDW Plt Count Neut % (Auto) Lymph % (Auto) [place] % (Auto) Eos % (Auto) Baso % (Auto) Neut # (Auto) PT 14.7 H INR 1.3 APTT 63 H Sodium Potassium Chloride Carbon Dioxide BUN Creatinine Estimated GFR BUN/Creatinine Ratio Glucose Calcium Assessment & Plan Plan: Assessment/Plan Narrative: Impression and plan Acute CVA. Likely embolic in nature This is secondary to severe carotid disease. However this point no surgical intervention is recommended. Continue current treatment. PT/OT ; consult speech therapy . Fall and aspiration precautions. Additional management as indicated clinically; Severe Carotid stenosis; patient has reportedly complete obstruction of the right ICA. Left ICA stenosis is also reported. Patient will need to be [facility] at [facility] once stable. Continue current treatment with neuro checks. Anti-platelet therapy. Anti-lipid therapy. Klebsiella bacteremia. Source is most likely the common bile duct. Patient is on antibiotics with cefepime. Follow sensitivity report P. atrial fibrillation; rate appeared to be controlled. Continue current management. Common bile duct obstruction. ERCP is planned. Patient is in severe headaches for now; This need to be on hold for now. Patient is bacteremic. No surgical intervention is commended on to treatment is completed Anemia chronic disease; monitor for now. Treat as indicated Heparin coagulopathy; continue heparin drip for now. MONITOR CLOSELY FOR SIGNS AND SYMPTOMS OF ACUTE hemorrhage Hypokalemia; replace IV today. repeat labs serially to follow Elevated liver enzymes; daily labs to follow Hypoalbuminemia ; monitor for now; watch for 3rd spacing; transfuse as indicated hematuria; outpatient w/u as indicated Tobacco abuse and nicotine addiction; counsling given; prn nicotine patch COPD per bacteremia; monitor closely for now; no s/s of acute exacerbation Hypertension for history; monitor on home and prn meds Pseudo hypocalcemia. This is most likely related to liver disease with hypoalbuminemia. Monitor for now PROGNOSIS APPEARED POOR FOR THIS PATIENT DUE TO THE MULTITUDE OF HIS COMORBIDITIES. WE WILL SPEAK TO FAMILY ON THE MORNING. WILL CONSIDER POSSIBLE REFERRAL TO [facility] OTHERWISE CONTINUE CURRENT TREATMENT Quality VTE Deep Vein Thrombosis/Pulmonary Embolism Present on Admission: No
[2018-09-18 16:26] LABS: PTT Partial Thromboplastin Tim 76 SECONDS (26.4-36.2)
--- NOTE | 2018-09-18 16:39 | PT.IPTN ---
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) Physical Therapy Treatment Note M2 PT-IP Current Condition Start: 09/17/18 15:11 Freq: NEEDED Status: Active Protocol: Document 09/17/18 13:43 RCC (Rec: 09/17/18 15:34 RCC [id number]) Physical Therapy Current Condition Current Condition Evaluation Date 09/17/18 Treatment Diagnosis CVA, impaired mobility, LUE weakness Precautions Abdominal Surgery Precautions Log Roll Lifting Restrictions Gait Belt above Incisional Area Other Precautions T-tube R lower quadrant M3 PT-IP Subjective Start: 09/17/18 15:11 Freq: NEEDED Status: Active Protocol: Document 09/18/18 15:55 CLB (Rec: 09/18/18 16:39 CLB [id number]) Subjective Physical Therapy Visit Type Type Patient Refusal Notes Pt refused treatment. Will check back with pt in AM.
--- NOTE | 2018-09-18 17:01 | ST.IPIE ---
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) Past Medical History (Last Reviewed 09/17/18 @ 13:21 by Tato Lamb MD) Bilateral carotid artery stenosis (Acute Medical) Cholecystitis with cholelithiasis (Acute Medical) Choledocholithiasis (Acute Medical) Gallstone pancreatitis (Acute Medical) History of CVA (cerebrovascular accident) without residual deficits (Acute Medical) History of tobacco abuse (Acute Medical) Other severe protein-calorie malnutrition (Acute Medical) Peripheral vascular disease (Acute Medical) Retained gallstones following open cholecystectomy (Acute Medical) Chronic cough (Chronic Medical) Inguinal hernia (Chronic Medical) Reducible right inguinal hernia (Chronic Medical) Vocal cord polyps (Resolved Medical) removed ST IP Initial Evaulation Report ATHLETIC COORDINATOR Clinical Swallow Evaluation Start: 09/18/18 16:29 Freq: Status: Active Protocol: Document 09/18/18 16:29 TLC (Rec: 09/18/18 16:59 TLC [id number]) Clinical Swallow Evaluation Session Time Visit Start Time 13:40 Visit Stop Time 14:40 Total Visit Minutes [address] Lamb Setting Assessment Location Acute Care Visit Type Note Type Initial Evaluation Next Note Type Next Note Type Treatment Note Patient Information Identification Type Name History Patient has had multiple recent admissions to including: open cholecystectomy and T-tube drain, CVA causing LLE weakness 08/23-08/27/18, 09/05- 09/10 generalized weakness. He was brought to the ER Tuesday due to inability to move the LUE. Head/neck CTA- occluded R ICA and L ICA 80% stenosis. Surgery/stent placement not recommended by [facility]. Pt initially only able to move his L thumb, no other movement . It appears he has an evolving stroke as he began with slurred speech yesterday during dinner and also has shown new onset dysphagia. He was made NPO by nursing due to difficulty with secretion management. Subjective Observations Yair was seen lying in bed in room. He was able to follow my directions to participate in the evaluation and answer questions, but speech intelligibility is reduced due to dysarthria. A marker and paper were at his bedside and he requested to use this on one occasion. The sentence he wrote was syntactically incorrect; however, his handwriting was legible. His was not present but, I did speak with her on the phone regarding my recommendations following the evaluation. Evaluation Liquids Trialed Ice Chips Thin [place] Solids Trialed Puree Administration Type Tea Spoon Dependent Feeding Oral Impairment Moderately Impaired Oral Phase Comments Oral motor examination : significantly reduced lingual and labial strength and range of motion. Patient has a left sided facial droop at rest and during labial retraction. He was not able to lateralize his tongue to the left side of his mouth. Mild lingual deviation upon protrusion. Jaw opening was reduced. Palate elevation appeared symmetrical . Volitional throat clear and cough were weak. Vocal volume was moderately reduced, with periods of aphonia when asked to say ahh. Oral Phase: Prior to trials, patient found with phlegm in the oral cavity which he appeared unaware of. He was not able to spit it out, requiring assistance for removal. Anterior spillage on left with both liquids and purees due to impaired labial closure and diminished sensation, patient unable to clear with tongue, but cleared residue with napkin given visual feedback (mirror). Oral transit time appeared slowed with a 3-5 second swallow delay likely due to decreased lingual strength and range of motion. Mild oral residue observed following trials of puree. No further textures trialed due to impairments observed. Pharyngeal Phase Comments Pharyngeal phase: Hyolaryngeal elevation present on palpation. Patient with no overt s/sx of aspiration with ice chips, but immediate coughing following 1/2 teaspoon amount of water presented via spoon. Throat clearing and/or coughing present with at least 50% of remaining trials of thin liquids. Delayed throat clearing present following puree trials. Trials discontinued for patient safety. Suspect pharyngeal dysphagia given patient's left sided weakness. Findings Dysphagia Type Oropharyngeal Rehabilitation Potential Fair Impressions Patient presents with moderate -severe oral dysphagia and suspected pharyngeal dysphagia given presentation at bedside . Patient is at high risk of aspiration given left sided weakness, decreased ability to manage secretions and evolving stroke. Recommend instrumental assessment for further evaluation and to determine plan of care. Patient to remain NPO until instrumental assessment for patient safety. Diet Recommendations Liquids Order NPO Diet Order NPO Medication Recommendations Not Recommended by Mouth Treatment Plan Placement Recommendations after [facility] Facility Discharge Appropriate for Therapy Yes Therapy Recommendations Instrumental assessment scheduled for 1:30pm tomorrow (09/19/18) pending MD approval . Dysphagia Goals Yair will participate in a modified barium swallow study in order to further assess pharyngeal function and determine plan of care. ATHLETIC COORDINATOR Motor Speech Evaluation Start: 09/18/18 15:11 Freq: Status: Active Protocol: Document 09/18/18 16:29 TLC (Rec: 09/18/18 16:59 TLC [id number]) Motor Speech Evaluation Oral Motor Lips Function Moderate Impairment Tongue Function Moderate Impairment Jaw Function Moderate Impairment Soft Palate Function Moderate Impairment Respiration/Phonation Phonation Function Moderately Impaired Loudness Reduced Loudness Conversation Duration Moderately Impaired Function Moderately Impaired Loudness Reduced Loudness Diadochokinetic Rates Speech Intelligibility Phoneme Severity Mildly Impaired Word Severity Moderately Impaired Sentence Severity Severely Impaired Conversation Severity Severely Impaired Awareness/Strategy Use Description Type of awareness/use Uses intermittently Findings Details Motor Speech Function Moderate-Severe Impairment Assessment Details Assessment Yair presents with moderate- severe (likely flaccid) dysarthria characterized by imprecise consonant productions and reduced loudness. Intelligibility is judged to be ~30%, increasing to ~60% with implementation of strategies (slow rate, over articulate). Prognosis Rehabilitation Potential Good Recommendations Treatment Recommended Yes Therapy Recommendations Ongoing therapy to target improving speech intelligibility as well as use of augmentative/alternative communication means as needed in order to successfully communicate wants/needs in the medical setting. Language evaluation is recommended to determine presence and severity of aphasia as patient 's attempt to communicate in writing was in error. Short Term Goals Given occasional reminders, Yair will utilize dysarthria speaking strategies to improve speech intelligibility to <60 % in order to increase communicative effectiveness and decrease frustration. Patient/Family Education Education Described results of evaluation Family Understanding Patient Needs More Info Family Needs More Info
[2018-09-18] MEDS: POTASSIUM CHLORIDE 40 MEQ in SODIUM CHLORIDE 0.9% 500 ML 130 ML IV (18:59)
[2018-09-18] MEDS: KCL 40 MEQ IN NS 1,000 ML 100 MEQ IV (18:59)
[2018-09-19] VITALS (7 sets, daily range): BP systolic 158–187; BP diastolic 66–91; PULSE 90–97; RESP 16–18; TEMP 36.5–36.8; O2SAT 96–98
[2018-09-19] MEDS: CEFEPIME 2 GM in SODIUM CHLORIDE 0.9% 100 ML 200 ML IV ×3 (00:53→22:36)
[2018-09-19 04:25] LABS: Add Manual Diff / Slide Review NO; Basophils Percent Auto 0.3 % (0-2); Eosinophils Percent Auto 1.4 % (2-4); Hemoglobin 10.4 g/dL (13.5-17.5); Lymphocytes Percent Auto 9.5 % (25-40); Mean Corpuscular HGB Conc 33.6 % (30-36); Mean Corpuscular Hemoglobin 27.1 PG (26-34); Mean Corpuscular Volume 80.8 fL (80-100); Monocytes Percent Auto 6.7 % (3-14); Neutrophils Absolute Auto 5000 /uL (3000-5900); Neutrophils Percent Auto 82.1 % (50-75); PTT Partial Thromboplastin Tim 35 SECONDS (26.4-36.2); Platelet Count 155 X10^3/uL (150-400); Red Blood Cell Count 3.84 X10^6/uL (4.5-5.9); Red Cell Distribution Width 15.9 % (11.6-14.8); White Blood Cell Count 6.1 X10^3/uL (4.5-11.0)
[2018-09-19 04:27] LABS: Alanine Aminotransferase 77 IU/L (21-72); Albumin 2.6 g/dL (3.5-5.0); Alkaline Phosphatase 365 U/L (38-126); Aspartate Aminotransferase 28 IU/L (17-59); Bilirubin Total 1.8 mg/dL (0.2-1.3); Blood Urea Nitrogen 7 mg/dL (9-20); Calcium 7.6 mg/dL (8.4-10.2); Carbon Dioxide 23 mmol/L (22-32); Chloride 105 mmol/L (98-107); Estimated Glomerular Filt Rate > 60.0 mL/min (>60); Globulin 2.6 g/dL (1.7-4.1); Glucose 97 mg/dL (80-110); HEMOLYSIS < 15 (0-50); Magnesium 1.2 mg/dL (1.6-2.3); Phosphorous 3.2 mg/dL (2.3-3.7); Potassium 3.5 mmol/L (3.4-5.1); Sodium 137 mmol/L (137-145); Total Protein 5.2 g/dL (6.3-8.2)
--- NOTE | 2018-09-19 06:22 | PM.EVENT ---
Date Patient Seen: 09/19/18 Time Patient Seen: 06:23 Notified by patient's nurse of bloody discharge from patient's penis. Acknowledged notification. Patient was seen at bedside. At that time, approximately 3:00 a.m., heparin was stopped. Slight discharge was noted from the penile organ. Stopped the heparin. Later reading updates on patient's chart, noted presence of hematuria per most recent hospitalist's note. Asked the nurse to have a.m. labs drawn early. PTT was subtherapeutic. Given mild blood discharge, decision was made to restart the heparin per protocol. However at 6:30 a.m. was notified by patient's nurse once again the patient now is having slight epistaxis. Patient is seen at bedside. His neurological status remains at baseline. No further focal deficits addendum once he is already having, no change in consciousness, lethargy, or stupor. Vital signs stable.
--- NOTE | 2018-09-19 06:24 | PC.NURSE ---
09/19 0630; pt alert and oriented, answers appropriately (with nods and one word or min word responses) observed to comprehend this staffs communication, but is severely limited in his responses due to his expressive aphasia, very mumbled expression of words, has marker and paper at bedside to assist if needed. Uses call light appropriately and 2 person moderate assist to BSC for BMs. Uses urinal independently with some occasional episodes of incontinence which pt is able to express needs for hygiene care. No changes to NIH score, T-Tube draining to gravity and VSS on RA with continued high blood pressures (MD aware). This evening around (09/18 @1999) some penile bleeding from the urethra was noticed during hali-care, monitored by RN to establish if it was consistent and to what quantity. This staff established by 0200 that penile bleeding was consistent and with or without manipulation was slowly dripping blood. SSIS ARCHITECT made aware and ordered to stop heparin drip and move up labs to 0400. 0400 labs showed steady H&H as well as a sub-therapeutic APTT. Notified SSIS ARCHITECT, and instructed to go ahead and re-admit heparin drip per protocol, administered 4500U bolus and then started at 20.2ml/hr. At 0600, pt observed to have minor nose bleed at which SSIS ARCHITECT was notified and again ordered to stop heparin drip. Pt had large BM and tested for blood which was negative.
--- NOTE | 2018-09-19 06:30 | P.EN_ITS ---
Date Patient Seen: 09/19/18 Time Patient Seen: 06:23 Notified by patient's nurse of bloody discharge from patient's penis. Acknowledged notification. Patient was seen at bedside. At that time, approximately 3:00 a.m., heparin was stopped. Slight discharge was noted from the penile organ. Stopped the heparin. Later reading updates on patient's chart , noted presence of hematuria per most recent hospitalist's note. Asked the nurse to have a.m. labs drawn early. PTT was subtherapeutic. Given mild blood discharge, decision was made to restart the heparin per protocol. However at 6: 30 a.m. was notified by patient's nurse once again the patient now is having slight epistaxis. Patient is seen at bedside. His neurological status remains at baseline. No further focal deficits addendum once he is already having, no change in consciousness, lethargy, or stupor. Vital signs stable.
[2018-09-19] MEDS: KCL 40 MEQ IN NS 1,000 ML 100 MEQ IV ×2 (07:52→22:36)
--- NOTE | 2018-09-19 08:44 | PT.IPTN ---
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 Will hold any further PT attempts until a decision has been made regarding goals of care.
--- NOTE | 2018-09-19 09:00 | OT.IP.TRT ---
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) Cerebral infarction, unspecified (09/16/18) Occupational Therapy Treatment Note M2 OT-IP Current Condition Start: 09/18/18 15:44 Freq: Status: Active Protocol: Document 09/18/18 12:24 PJLidia (Rec: 09/18/18 16:12 PJM [id number]) Occupational Therapy Current Condition Current Condition Evaluation Date 09/18/18 Treatment Diagnosis new strokes w/LUE weakness, dysarthria, recent mary w/CBD stone, drain Diagnosis Onset Date 09/16/18, 09/17/18 Post Operative Precautions Abdominal Surgery Precautions Log Roll Lifting Restrictions Gait Belt above Incisional Area Other Precautions T-tube with gravity bag R lower quadrant, fall risk, NPO pending S.T. swallow eval, L cavitary lung mass concerning for neoplasm M3 OT- IP Subjective and Pain Start: 09/18/18 15:44 Freq: Status: Active Protocol: Document 09/19/18 09:00 NALINI (Rec: 09/19/18 13:38 NALINI [id number]) OT- Subjective Occupational Therapy Visit Type Type Administrative Note Visit Start Time 09:00 Notes OT will hold tx today until after pt/family conference re: possible hospice and goals of
--- NOTE | 2018-09-19 09:17 | PC.NURSE ---
Addendum entered by Brenda Grande R.N. 09/19/18 09:32: Pt had some bleeding from his nose and penis earlier this morning on Noc Shift. Heparin drip was started and stopped 2 times. He voided 150cc of dark yellow urine earlier and no blood present just dried blood to urinal. His nose was slightly bleeding, have not given pt his plavix as am waiting to hear back from the Dr. A note has been written and placed on his desk. Original Note: Pt is Alert and oriented but is having some problems with dysarthria and only speaks 1 word at a time. He was very clear about not wanting his nicotine patch this morning. Pts L.hand is swollen and puffy. He denies pain. Pt also has some bruising on his arms. Speech therapist in room at this time, trialing some different foods for him. He is scheduled for a modified barium swollen at 1330 today. NIH stroke scale a 12. Resting comfortably in bed on his back with ivf infusing.
[2018-09-19 11:36] LABS: PTT Partial Thromboplastin Tim 34 SECONDS (26.4-36.2)
--- NOTE | 2018-09-19 13:09 | PM.PN.1 ---
Subjective Date Patient Seen: 09/19/18 Time Patient Seen: 08:09 Interval history: Denies any shortness of breath or chest pain. Spoke to nursing without indicates Spoke to at bedside Questions and concerns addressed No fever or chills overnight. Nursing reported hemorrhage from the nose and blood in the urine All anticoagulated and anti-platelet therapy stopped For now Exam Vital Signs (past 8 hours): - 09/19/18 07:15 Temperature 97.7 F Pulse Rate 94 H Respiratory Rate 18 Blood Pressure 158/75 H Pulse Oximetry 97 Oxygen Delivery Method Room Air Oxygen Flow Rate 0 Narrative Exam Narrative: NO ACUTE DISTRESS. PATIENT IS ALERT ORIENTED X3. VITAL SIGNS STABLE HEAD ATRAUMATIC NORMOCEPHALIC NECK : SUPPLE WITHOUT ADENOPATHY ; NO MASS EYE: EOMI, PERRLA, NORMAL CONJUNCTIVA CHEST: REGULAR RATE.. NO RUBS. PMI IS NON DISPLACED. 1/6 SYSTOLIC MURMUR NOTED ON THE 2ND INTRACOSTAL IN THE RIGHT PULMONARY: DECREASED BREATH SOUNDS AT THE BASES. MILD BIBASILAR CRACKLES NOTED; NO INCREASED DULLNESS TO PERCUSSION; NO WHEEZING EXTREMITIES: 2+ EDEMA. NONPITTING. NO CYANOSIS OR CLUBBING NOTED. NEURO: CRANIAL NERVES DEFICIT NOTED WITH LF FACIAL DROOPING. INABILITY TO MOVE LEFT UPPER EXTREMITIES. SIGNIFICANT WEAKNESS IN HER LEFT LOWER EXTREMITY ; DIFFICULTY OF SPEECH MSK: NORMAL PASSIVE RANGE OF MOTION FOR AGE. NO JOINT EFFUSION. SKIN: NORMAL FOR ETHNICITY; NO ECCHYMOSIS. NO LESION. FAIR TURGOR. : NORMAL EXTERNAL GENITALIA. PSYCH : APPROPRIATE MOOD AND AFFECT. ALERT AWAKE ORIENTED X3 Objective Labs Result Diagrams: 09/19/18 04:08 09/19/18 04:08 Labs: Laboratory Results - last 24 hr 09/18/18 09/19/18 09/19/18 15:10 04:08 04:08 WBC 6.1 RBC 3.84 L Hgb 10.4 L Hct 31.0 L MCV 80.8 MCH 27.1 MCHC 33.6 RDW 15.9 H Plt Count 155 Neut % (Auto) 82.1 H Lymph % (Auto) 9.5 L Harper % (Auto) 6.7 Eos % (Auto) 1.4 L Baso % (Auto) 0.3 Neut # (Auto) 5000 APTT 76 H* D Sodium 137 Potassium 3.5 Chloride 105 Carbon Dioxide 23 BUN 7 L Creatinine 0.50 L Estimated GFR > 60.0 BUN/Creatinine Ratio 14.0 Glucose 97 Calcium 7.6 L Phosphorus 3.2 Magnesium 1.2 L Total Bilirubin 1.8 H AST 28 ALT 77 H Alkaline Phosphatase 365 H D Total Protein 5.2 L Albumin 2.6 L Globulin 2.6 Albumin/Globulin Ratio 1.0 09/19/18 09/19/18 04:08 11:10 WBC RBC Hgb Hct MCV MCH MCHC RDW Plt Count Neut % (Auto) Lymph % (Auto) Harper % (Auto) Eos % (Auto) Baso % (Auto) Neut # (Auto) APTT 35 D 34 Sodium Potassium Chloride Carbon Dioxide BUN Creatinine Estimated GFR BUN/Creatinine Ratio Glucose Calcium Phosphorus Magnesium Total Bilirubin AST ALT Alkaline Phosphatase Total Protein Albumin Globulin Albumin/Globulin Ratio Assessment & Plan Plan: Assessment/Plan Narrative: ASSESSMENT AND PLAN Acute CVA. Likely embolic in nature; patient is a known vasculopath he has severe carotid disease. However at this point no surgical intervention is recommended. Patient heparin will be stopped for now. Patient developed some bleeding overnight. His anti-platelet and anticoagulant will be stopped; PT/OT ; consulted speech therapy for diet recommendation. Continue with Fall and aspiration precautions. Additional management as indicated clinically; prognosis is poor. Severe Carotid stenosis; patient has reportedly complete obstruction of the right ICA. Left ICA stenosis is also reported. Patient will need to be [facility] at [facility] once stable. Continue current treatment with neuro checks and Anti-lipid therapy. Anticoagulant held for now. Klebsiella bacteremia. Source is most likely the system Patient is on antibiotics with cefepime. Continue with IV antibiotics for now. Will switch to oral antibiotics if repeat cultures are negative. Sensitivity report is noted P. atrial fibrillation; rate appeared to be controlled. Continue current management. poss biliary duct obstruction. ERCP being considered; however this is not indicated at this time; . Patient is bacteremic. No surgical intervention for now Anemia chronic disease; monitor for now. Treat as indicated Heparin coagulopathy; dc heparin drip due to hemorrhage; reassess as indicated Hypokalemia; replace IV again today. repeat labs serially to follow Elevated liver enzymes; daily labs to follow Hypoalbuminemia ; monitor for now; watch for 3rd spacing; transfuse as indicated hematuria; worsened overnight; heparin stopped; monitor closely Tobacco abuse and nicotine addiction; counseling given; prn nicotine patch COPD per hx; monitor closely for now; no s/s of acute exacerbation Hypertension for history; monitor on home and prn meds Pseudo hypocalcemia. This is most likely related to liver disease with hypoalbuminemia. Monitor for now summary Spoke to the patient and POA At this point patient is agreeing with HOSPICE Palliative care and hospice service will be consulted today Patient will be referred to the services and possible meeting this afternoon will be set up Discharge planning as per the outcome the conversation between POA/patient and hospice staff WE WILL CONTINUE TO HOLD ALL ANTICOAGULANT PATIENT TO BE RESTARTED ON THE ORAL INTAKE TODAY WILL HOLD ALL FURTHER WORKUPS ADDITIONAL MANAGEMENT INDICATED CLINICALLY WE ANTICIPATE DISCHARGE IN NEXT 24-48 HOURS LIKELY TO HOME HOSPICE VERSUS HOSPICE HOUSE Quality VTE Deep Vein Thrombosis/Pulmonary Embolism Present on Admission: No
--- NOTE | 2018-09-19 13:39 | ST.IPIE ---
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) Cerebral infarction, unspecified (09/16/18) Past Medical History (Last Reviewed 09/17/18 @ 13:21 by Tato Lamb MD) Bilateral carotid artery stenosis (Acute Medical) Cholecystitis with cholelithiasis (Acute Medical) Choledocholithiasis (Acute Medical) Gallstone pancreatitis (Acute Medical) History of CVA (cerebrovascular accident) without residual deficits (Acute Medical) History of tobacco abuse (Acute Medical) Other severe protein-calorie malnutrition (Acute Medical) Peripheral vascular disease (Acute Medical) Retained gallstones following open cholecystectomy (Acute Medical) Chronic cough (Chronic Medical) Inguinal hernia (Chronic Medical) Reducible right inguinal hernia (Chronic Medical) Vocal cord polyps (Resolved Medical) removed ST IP Evaulation Report HEALTH EVALUATOR Language Evaluation Start: 09/19/18 10:18 Freq: Status: Active Protocol: Document 09/19/18 10:19 TLC (Rec: 09/19/18 11:27 TLC [id number]) Language Evaluation Session Time Total Visit Minutes 60 Visit Information Visit Number 2 Next Note Type Next Note Type Treatment Note Previous Therapy Previous Speech-Language Therapy Yes Subjective Subjective Yair was seen lying down in bed. He refused PO trials stating he wasn't hungry for anything, but agreed to a language evaluation. Following the session, I spoke with the hospitalist who plans to have a conversation with the patient and his regarding palliative/hospice some time today. In light of this, he requested the Modified Barium Swallow Study scheduled for this afternoon be cancelled and a diet be recommended for comfort feedings at this time. - - Receptive Language Yes/No Questions Skill Level WFL Following Directions - Verbal Skill Level WFL Auditory Comprehension Skill Level WFL - Expressive Language Automatic Speech Skill Level WFL Sentence Closure Skill Level WFL Object Naming Skill Level WFL Written Expression Skill Level Moderately Impaired - Findings Language Findings Moderate-severe dysarthria resulting in significantly decreased speech intelligibility made it difficulty to complete a full language evaluation, however, receptive language appears mostly unaffected. Edwin was able answer yes/no questions, answer questions related to orientation, and follow directions. Spoken language also appeared unaffected. He was able to name objects, complete automatic naming tasks such as naming days of the week and months of the year, read words and sentences . Written expression was mildly-moderately impaired with difficulty observed during writing letters of the alphabet and writing sentences . Overall, expressive and receptive language function remains in tact for communicating basic wants/ needs. Complex ideas are more difficulty to express given dysarthria and difficulty with writing. We reviewed dysarthria speaking strategies as educated yesterday including slow rate with use of pacing, especially during multisyllabic words and use of big mouth movements for over articulation of each syllable. Recommendations Recommendations Further education with patient and regarding strategies for improved communication. Follow-up with patient later today in an attempt to offer PO trials for establishing diet recommendations. Continue NPO status with Atkins free water protocol (stringent oral care prior to administering PO via tsp) if patient requests. Treatment Goals Short Term Goals Given occasional reminders, Yair will utilize dysarthria speaking strategies to improve speech intelligibility to <60 % in order to increase communicative effectiveness and decrease frustration. Yair and his will participate in and demonstrate understanding of education regarding strategies for improving functional communication.
--- NOTE | 2018-09-19 13:40 | SLP.IPNOTE ---
Patient seen today for language evaluation to assess communication ability and needs. See report for details. Patient declined PO trials this morning stating he wasn't hungry for anything. MBSS canceled per hospitalist, awaiting discussion with patient's family regarding hospice/palliative care. MD requesting FLAT SPRING ASSEMBLER put patient on a PO diet for pleasure feedings despite aspiration risk. Will attempt to see patient this afternoon to trial diet consistencies if patient has an appetite.
--- NOTE | 2018-09-19 13:56 | CM.DANOTE ---
DCP/continued: Reviewed chart. Received notification in AM rounds from that patient/spouse would benefit from hospice informational visit. PROCED TECH met with patient and spouse/Alana # [phone] explained role. Patient and spouse confirm that they would like to meet with hospice to determine what assistance they can provide in the home. Spouse also inquiring about SNF for rehabilitation? Spouse made aware that if patient unable to sustain nutrition that he most likely will not be good rehab candidate. She understood. At this time,patient unable to swallow and is NPO. Patient has POLST that reports no feeding tube. Therefore, most appropriate plan would be home with hospice if patient and spouse in agreement. Placed call to hospice and they plan to do informational visit on 09-19-18 at 10:00AM. Notified Mikaela to place patient on schedule for visit in the home as soon as possible. If patient/spouse change mind start date can be cancelled. Clinical faxed to Hospice as well. P: Pending. Anticipate home with hospice if all continue to be in agreement. Hospice to do informational visit tomorrow. LIZBETH Storey Discharge Planning/Care Management CM Discharge Assessment Start: 09/17/18 14:21 Freq: Status: Active Protocol: Document 09/17/18 14:21 (Rec: 09/17/18 14:54 [id number]) Discharge Planning Assessment Advance Directives? Yes: polst Advance Directives on File No History Provided By Patient Significant Other Medical Record Prior Living Arrangements House Household Members spouse family Type of transporation used prior to Relies on Others admit Independent with ADL's Yes Is patient alert and oriented? Yes Needs Assistance With Meal Prep Home Chores / Shopping Patient/Family Preference [facility] Facility Home with Home Health Comment Is questionable if patient will consent to fci, have mentioned. Also mentioned Home health as well. Patient not up to making this decision at this time Barriers to Discharge Yes Comment Uncertain if home will be the best setting for patient due to weakness. Patient medically unstable, and has had frequent re-admissions. Patient has poor decision making regarding his health and safety Discharge Plan [facility] Facility Transportation Arrangement Spouse Additional Comment Referral not yet initiated, for patient is not wanting to go to rehab. Giving patient some time to think about this Whiteboard Updated in Patient Room with Yes name and ext. # of Rf Design Engineer Review Status In Process Next Review Type Continued Stay Review 09/17/18 14:25 CM Disch. Assessment Note by Cinda Kramer DCP: Case received, EMR reviewed and met with patient. Introduced self and role. DCP template completed with information currently available. Patient is a 78 year old who admitted yesterday evening to the care of the hospitalist team. PCP: Patient does not have a primary provider. Payer: confirmed: Medicare/ for Life Patient came to hospital yesterday evening via ambulance. Patient was recently here at hospital with CVA symptoms, and prior to this with Pancreatitis and Cholecystitis. Patient has had several co-morbidities, as well as nutritional deficits. Patient has not established with a provider, stated, I never did see a doctor because I never had to. Patient lives with his , Alana, who is very supportive. 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 For this reason, patient is reluctant to go to a rehab facility, which has been discussed previously, as well as today. , Alana, stated that patient had been doing somewhat better since he was recently here, and had a better appetite. Stated that his weight was up to 120. During last hospitalization, there was mention of possible Peg tube placement, which patient did not want. Patient had abdominal pain yesterday, according to . Went to lay down, and a few hours later, called for his and could not move his left arm, and had noted extreme left sided weakness. called EMS. Patient was also not taking his blood thinners, for he thought he was supposed to hold them until gallbladder procedure in Sep. 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 According to notes, patient would not yet be able to withstand Endarterectomy, which is what would be recommended to unclog arteries, due to his medical instabilities. Patient is also noted to have Bacteremia, which may be UTI related, as evidenced by blood cultures. P: DCP to follow closely. Patient does not have a regular provider, so home health would not be an option at this time. Skilled would be most appropriate for patient, as mentioned to him today, but he is still reluctant to go. Other option may be Hospice, which has not yet been discussed, but if son, would need to see if doable for at home. Cinda Kramer, RN/Geophysics Teacher Initialized on 09/17/18 14:25 - END OF NOTE Document 09/19/18 13:36 KJS (Rec: 09/19/18 13:56 KJS [id number]) Discharge Planning Assessment Assigned Rf Design Engineer LIZBETH Storey Contact Information Alana Kennedy (spouse) Advance Directives? Yes: polst Advance Directives on File No History Provided By Patient Significant Other Medical Record Has Patient been admitted in last 30 Yes days? Comment 08-23-18 Prior Living Arrangements House Household Members spouse Type of transporation used prior to Relies on Others admit Independent with ADL's Yes Is patient alert and oriented? Yes Needs Assistance With Eating Meal Prep Managing Medications Home Chores / Shopping Comment Patient unable to swallow at this time. Currently NPO. POLST reports patient does not want feeding tube (see POLST for details). Caregiver for Another No DME Already Rented / Owned [facility] / Walker Patient/Family Preference [facility] Facility Home with Home Health Comment Is questionable if patient will consent to fci, have mentioned. Also mentioned Home health as well. Patient not up to making this decision at this time Comment MD requesting hospice informational visit to be scheduled for today/tomorrow. PROCED TECH placed call to hospice and clinical faxed. Inforamtional visit scheduled for tomorrow at 10:00am. Barriers to Discharge Yes Comment Uncertain if home will be the best setting for patient due to weakness. Patient medically unstable, and has had frequent re-admissions. Patient has poor decision making regarding his health and safety Discharge Plan Hospice Transportation Arrangement Spouse Referrals Initiated Other Additional Comment Referral not yet initiated, for patient is not wanting to go to rehab. Giving patient some time to think about this. Hospice referral initiated. Whiteboard Updated in Patient Room with Yes name and ext. # of Rf Design Engineer Review Status In Process Please Provide Date Initial DC 09/19/18 Assessment Was Performed Next Review Type Continued Stay Review
[2018-09-19] MEDS: MAGNESIUM SULFATE 2 GM/50 ML PIGGYBACK IV (14:16)
[2018-09-19] MEDS: POTASSIUM CHLORIDE 40 MEQ in SODIUM CHLORIDE 0.9% 500 ML 130 ML IV (14:16)
--- NOTE | 2018-09-19 14:43 | PT.IPTN ---
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) Cerebral infarction, unspecified (09/16/18) Physical Therapy Treatment Note M2 PT-IP Current Condition Start: 09/17/18 15:11 Freq: NEEDED Status: Active Protocol: Document 09/17/18 13:43 RCC (Rec: 09/17/18 15:34 RCC [id number]) Physical Therapy Current Condition Current Condition Evaluation Date 09/17/18 Treatment Diagnosis CVA, impaired mobility, LUE weakness Precautions Abdominal Surgery Precautions Log Roll Lifting Restrictions Gait Belt above Incisional Area Other Precautions T-tube R lower quadrant M3 PT-IP Subjective Start: 09/17/18 15:11 Freq: NEEDED Status: Active Protocol: Document 09/19/18 14:20 RS (Rec: 09/19/18 14:43 RS [id number]) Subjective Physical Therapy Visit Type Type Treatment Note Visit Start Time 13:55 Visit Stop Time 14:20 Total Visit Minutes 25 Physical Therapy Visit Comments Patient Comments Pt agreeable to participate in therapy today, but only to do bed mobility. Pt declines to sit up to EOB. Therapy Pain Assessment Pain When Pain Assessed At Rest Pain Present Pain Present Denied Pain M4 PT-IP Mobility and Gait Start: 09/17/18 15:11 Freq: NEEDED Status: Active Protocol: Document 09/19/18 14:20 RS (Rec: 09/19/18 14:43 RS [id number]) PT-Bed Mobility Assessment Rolling Type of Rolling Roll to Right Roll to Left Level of Assist Minimal Assistance Scooting Scooting Up and Down in Bed Minimal Assistance PT-Transfer Assessment Comments Mobility Comments Pt needing min A and verbal cues for rolling. Pt able to assist with RUE, BLE and use of bed rails. Pt also able to lift hips off the bed via bridge with B feet stabilized. Pt also able to help scoot up in bed, again, with knees bent and B feet stabilized. Pt not wanting to attempt sitting EOB at all. M5 PT-IP Objective Assessments Start: 09/17/18 15:11 Freq: NEEDED Status: Active Protocol: Document 09/17/18 10:35 RCC (Rec: 09/17/18 15:27 RCC [id number]) Orientation Orientation/Cognition Level of Alertness Alert Orientation Name Age Birthday Month Date Year Day of Week Place Situation Gross Range of Motion Upper Extremity ROM Assessment Left Impaired Impairments impaired AROM of the L shoulder but normal PROM Lower Extremity ROM Assessment Within Functional Limits Strength Upper Extremity Strength Assessment Left Impaired Shoulder flexion 2/5 L, abduction 3-/5 L Elbow flexion and extension 2+/5 L Wrist flexion and extensoin 2/5 L Lower Extremity Strength Assessment Left Impaired Hip flexion 4/5 L Knee flexion and extension 3+/5 L Ankle DF 4/5 L Comments Strength Comments pt with LUE 3rd digit flexion with increased tension (unable to open all of the way L hand ). Coordination Assessment Gross Coordination Gross Coordination Impaired Assessment Finger to Nose Test Severe Impairment Pronation/Supination Test Severe Impairment Foot Tapping Test Moderate Impairment Heel on Schultz Test Moderate Impairment Sensation Assessment Sensation Gross Sensation Left UE Impaired Muscle Tone Comments Muscle Tone Comments flaccid LUE except for increased tone in L hand/ fingers M6 PT-IP Treatment Start: 09/17/18 15:11 Freq: NEEDED Status: Active Protocol: Document 09/17/18 13:43 RCC (Rec: 09/17/18 15:34 RCC [id number]) Physical Therapy Treatment Exercises Exercises Elbow Flexion/Extension Wrist ROM Hand ROM M7 PT-IP Assessment and Plan Start: 09/17/18 15:11 Freq: NEEDED Status: Active Protocol: Document 09/19/18 14:20 RS (Rec: 09/19/18 14:43 RS [id number]) PT Summary Assessment and Plan Summary Assessment Summary Pt will be going on hospice services. PT will stay in only for family training if pt goes home w/ hospice. If pt goes home, he will need a hospital bed, mechanical lift, and wheelchair. Will attempt family training once a discharge plan is in place. Goals Other Goals Pt//family will participate in family training with focus on bed mobility and mechanical transfers. Frequency of Treatment Frequency Of Treatment Once a Day Treatment Plan Physical Therapy Treatment Plan Bed Mobility Training Transfer Training Recommendations To Nursing Amount of Assist Needed Mechanical Lift Discharge Recommendations Other Discharge Recommendations Pt has chosen to start hospice services.
--- NOTE | 2018-09-19 15:15 | SLP.IPNOTE ---
Attempted to see patient this afternoon for swallow evaluation. Patient declined trials stating he was not hungry. Per nursing, patient will have a hospice consult tomorrow morning. Ongoing education will be provided to the patient and his tomorrow regarding safe swallow precautions for pleasure feeds and for improved communication.
--- NOTE | 2018-09-19 16:43 | PC.NURSE ---
Addendum entered by Mainor Ratliff 09/19/18 20:08: Patient ate a bowl of cream of wheat and a cup of rainbow sherbert. Patient's spouse was in the room during this. Patient is now asleep with call light close and bed low and locked. Earlier this evening patient asked if IV could be removed and nurse was notified of this request. Original Note: Student nurse note: Patient is lying in bed. Adventitious sounds noted in the R lower lobe. Physical assessment was performed. Patients speech is slurred, with no feeling or movement of the L side of face. There is no feeling or movement in the L arm. L leg has feeling, movement, and strength. Patient is oriented x4. Patient asked for cream of wheat for dinner and the Nurse Practitioner ordered a pureed diet. Patients is here and stated she will meet hospice tomorrow morning to plan the transition for patient to live out his life at home.
--- NOTE | 2018-09-19 20:29 | PC.NURSE ---
Addendum entered by Jyoti Layne R.N. 09/19/18 23:24: 2200 right wrist IV dislodged while pt using urinal. FRA IV patent and changed infusion to that site. NS+40KCL @ 100+ ABO @ 200 infusing concurrently. Original Note: A/O x3, NIH=13, left facial droop, moderate slurring left arm no movement, left leg substantial drift to bed. refused to get OOB. Right wrist infusing NS + 40 KCL @ 100. Previosly Mag 2G,rider and K 40meq rider infused. Using urinal with 1PA ( Alana), clear yellow urine. Pt requested cream of wheat for dinner, able to feed self. 97%RA, LS mild wheezing throughout, encouraged deep breathing, denies SOB. BT+, denies nausea. No further needs at this time. Bed lined and brief change @ 2039. Call light in reach and bed alarm on.
[2018-09-20] VITALS (8 sets, daily range): BP systolic 153–189; BP diastolic 75–100; PULSE 85–102; RESP 15–19; TEMP 36.4–36.9; O2SAT 94–97
--- NOTE | 2018-09-20 05:57 | PC.NURSE ---
Pt alert and oriented. L. side weakness. speech is slurred. NIH: 14. pt still having some slight hematuria. denied pain. pt calls appropriately. safety checks. IVF infusing.
--- NOTE | 2018-09-20 09:05 | PT.IPTN ---
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) Cerebral infarction, unspecified (09/16/18) Physical Therapy Treatment Note M2 PT-IP Current Condition Start: 09/17/18 15:11 Freq: NEEDED Status: Active Protocol: Document 09/17/18 13:43 RCC (Rec: 09/17/18 15:34 RCC [id number]) Physical Therapy Current Condition Current Condition Evaluation Date 09/17/18 Treatment Diagnosis CVA, impaired mobility, LUE weakness Precautions Abdominal Surgery Precautions Log Roll Lifting Restrictions Gait Belt above Incisional Area Other Precautions T-tube R lower quadrant M3 PT-IP Subjective Start: 09/17/18 15:11 Freq: NEEDED Status: Active Protocol: Document 09/20/18 08:57 SA (Rec: 09/20/18 09:05 SA [id number]) Subjective Physical Therapy Visit Type Type Treatment Note Visit Start Time 08:10 Visit Stop Time 08:40 Total Visit Minutes 24 Notes Treatment paused d/t MD visit. Physical Therapy Visit Comments Patient Comments Pt seated up in bed, agreaable to PT and finishing breakfast . Therapy Pain Assessment Pain When Pain Assessed At Rest Pain Present Pain Present Denied Pain M4 PT-IP Mobility and Gait Start: 09/17/18 15:11 Freq: NEEDED Status: Active Protocol: Document 09/20/18 08:57 SA (Rec: 09/20/18 09:05 SA [id number]) PT-Bed Mobility Assessment Rolling Type of Rolling Roll to Right Roll to Left Level of Assist Minimal Assistance Scooting Scooting Up and Down in Bed Moderate Assistance PT-Transfer Assessment Comments Mobility Comments Pt declined getting OOB or sitting up at EOB. M5 PT-IP Objective Assessments Start: 09/17/18 15:11 Freq: NEEDED Status: Active Protocol: Document 09/17/18 10:35 RCC (Rec: 09/17/18 15:27 RCC [id number]) Orientation Orientation/Cognition Level of Alertness Alert Orientation Name Age Birthday Month Date Year Day of Week Place Situation Gross Range of Motion Upper Extremity ROM Assessment Left Impaired Impairments impaired AROM of the L shoulder but normal PROM Lower Extremity ROM Assessment Within Functional Limits Strength Upper Extremity Strength Assessment Left Impaired Shoulder flexion 2/5 L, abduction 3-/5 L Elbow flexion and extension 2+/5 L Wrist flexion and extensoin 2/5 L Lower Extremity Strength Assessment Left Impaired Hip flexion 4/5 L Knee flexion and extension 3+/5 L Ankle DF 4/5 L Comments Strength Comments pt with LUE 3rd digit flexion with increased tension (unable to open all of the way L hand ). Coordination Assessment Gross Coordination Gross Coordination Impaired Assessment Finger to Nose Test Severe Impairment Pronation/Supination Test Severe Impairment Foot Tapping Test Moderate Impairment Heel on Schultz Test Moderate Impairment Sensation Assessment Sensation Gross Sensation Left UE Impaired Muscle Tone Comments Muscle Tone Comments flaccid LUE except for increased tone in L hand/ fingers M6 PT-IP Treatment Start: 09/17/18 15:11 Freq: NEEDED Status: Active Protocol: Document 09/20/18 08:57 (Rec: 09/20/18 09:05 [id number]) Physical Therapy Treatment Exercises Exercises Ankle Pumps Gluteal Sets Heel Slides Straight Leg Raises Supine Hip Abduction Education Education Provided Safety Equipment Issued Equipment Type and Company Pt going home with hospice and as caregiver today. Getting Hospital bed in home today. Other Treatments Other Treatment Performed Plans to use WC in/out of home . No stairs. M7 PT-IP Assessment and Plan Start: 09/17/18 15:11 Freq: NEEDED Status: Active Protocol: Document 09/20/18 08:57 (Rec: 09/20/18 09:05 [id number]) PT Summary Assessment and Plan Summary Assessment Summary no present this AM. Discharge Recommendations Other Discharge Recommendations Follow up with family for caregiver training as needed. As per patient Alana is working on [employer] equipment in home.
[2018-09-20] MEDS: KCL 40 MEQ IN NS 1,000 ML 100 MEQ IV ×2 (09:09→19:05)
--- NOTE | 2018-09-20 09:29 | P.PN_ITS ---
Subjective Date Patient Seen: 09/20/18 Time Patient Seen: 09:25 Interval history: Patient is sitting up in bed eating breakfast with his right hand with some mild assistance from the staff. No significant choking or coughing. His left face remains hemiparetic. However, his dysarthria has improved. Left upper extremity remains flaccid. He has no new complaints. No abdominal pain. No nausea or vomiting. Events of the last day or so have been noted. Exam Vital Signs (past 8 hours): - 09/20/18 05:13 09/20/18 08:00 Temperature 98.1 F 97.8 F Pulse Rate 85 96 H Respiratory Rate 16 18 Blood Pressure 169/85 H 153/86 H Pulse Oximetry 95 97 Oxygen Delivery Method Room Air Oxygen Flow Rate 0 Narrative Exam Narrative: Thin male in no acute distress in bed as above. Alert and oriented x3. T tube continues to drain normal bile. Abdomen is soft, nondistended, nontender Neurologic examination is as above. He has had no fevers or tachycardia since admission. Objective Labs Result Diagrams: 09/19/18 04:08 09/19/18 04:08 Labs: Laboratory Results - last 24 hr 09/19/18 11:10 APTT 34 No new laboratory studies review. He is now off all anticoagulation at his request. Assessment & Plan Plan: Assessment/Plan Narrative: 78-year-old male status post open cholecystectomy with common bile duct exploration and retained stone who now has significant issues with cerebrovascular disease resulting in significant stroke. He and his elected for home hospice care. Apparently he does not wish to have any kind of ongoing medical management or intervention for his vascular disease. We will continue the T-tube to gravity at home at this point. I will plan to see him in the surgery office in 2 weeks and reassess the situation. I have discussed the case with his clinical staff rn and we have canceled his planned ERCP for October 02, 2018. He requires at least 6 weeks to stabilize neurologically. In addition, he may be a candidate for interventional radiology methods to extract the stone via the T-tube. I discussed all this with the patient at length. Unfortunately, his is not present at the time of my visit this morning. Agree with discharge to home as above per the internal medicine service. Follow up with me in 2 weeks or sooner if he has any issues. In the interim T tube will remain to gravity as above. Quality VTE Deep Vein Thrombosis/Pulmonary Embolism Present on Admission: No
--- NOTE | 2018-09-20 11:16 | SLP.IPNOTE ---
Attempted to see patient's Alana for education regarding communication strategies and aspiration precautions including oral care at home twice this morning, but she was unavailable. Written education left in patient's room.
[2018-09-20] MEDS: CEFEPIME 2 GM in SODIUM CHLORIDE 0.9% 100 ML 200 ML IV ×2 (12:19→21:27)
--- NOTE | 2018-09-20 13:12 | OT.IP.TRT ---
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) Cerebral infarction, unspecified (09/16/18) Occupational Therapy Treatment Note M2 OT-IP Current Condition Start: 09/18/18 15:44 Freq: Status: Active Protocol: Document 09/18/18 12:24 PJLidia (Rec: 09/18/18 16:12 NALINI [id number]) Occupational Therapy Current Condition Current Condition Evaluation Date 09/18/18 Treatment Diagnosis new strokes w/LUE weakness, dysarthria, recent mary w/CBD stone, drain Diagnosis Onset Date 09/16/18, 09/17/18 Post Operative Precautions Abdominal Surgery Precautions Log Roll Lifting Restrictions Gait Belt above Incisional Area Other Precautions T-tube with gravity bag R lower quadrant, fall risk, NPO pending S.T. 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 not here. Attempted to call her, but no answer. Will attempt to check in with tomorrow to see if she has any questions about pt's self care in home setting prior to d/c. Hospice will provide all equipment needed. No charge. M4
--- NOTE | 2018-09-20 13:48 | CM.DPC ---
DCP Cont: According to Dr Abbott; pt and spouse are not good candidates to leave the hospital w/o hospice to f/u immediately at home, d/t readmission risk. Jessi from [facility] explained pt/spouse signed consent forms and needed to be placed on schedule for admission. TC placed to Emily; she will hold the Tuesday morning slot which is the soonest available. Relayed this to pt's spouse in the hallway. She explained the DME would be delivered tomorrow but she did not feel comfortable taking pt home w/o hospice to call in case of a medical event or change in status, symptoms, medication change, etc. Spouse admits she would likely call 911 in one of these events. This TOURIST CABIN KEEPER will need to updated Hospitalist re: above. P: DC likely over the w/e, home w/spouse and Hospice to f/u. LIZBETH Caldera
--- NOTE | 2018-09-20 15:59 | PM.PN.1 ---
Subjective Date Patient Seen: 09/20/18 Interval history: Patient seen and examined, chart reviewed. Patient has significantly deteriorated. He has difficulty speaking. He has a left facial droop. And left upper extremity weakness. He is planning to return home with hospice. He is somewhat weak. He is on oral feeding at his request. He denies any pain. Exam Vital Signs (past 8 hours): - 09/20/18 08:00 09/20/18 11:40 Temperature 97.8 F 97.7 F Pulse Rate 96 H 87 Respiratory Rate 18 18 Blood Pressure 153/86 H 167/85 H Pulse Oximetry 97 97 Oxygen Delivery Method Room Air Oxygen Flow Rate 0 Narrative Exam Narrative: Ill appearing gentleman cachectic HEENT: Normocephalic atraumatic, extraocular muscles are intact, oropharynx is clear, left facial droop is noted, patient's speech is garbled, he is aphasic Lungs: Clear to auscultation Cardiac exam: Irregularly irregular normal S1-S2 Abdomen: Soft and nontender Extremity: No edema Neuro exam: Left facial droop, aphasia, left upper extremity weakness, sensation grossly intact left lower extremity normal sensation and strength Objective Labs Result Diagrams: 09/19/18 04:08 09/19/18 04:08 Assessment & Plan (1) Stroke: Problem details: The patient is off anticoagulation at this time. Will continue physical therapy occupational therapy. Plan is for him to discharge home on hospice Qualifiers: CVA mechanism: unspecified Laterality of affected vessel: Precerebral and cerebral artery: Qualified Code(s): I63.9 - Cerebral infarction, unspecified Current visit: Yes Status: Acute (2) Severe protein-calorie malnutrition: Problem details: Will continue pleasure feeding. Current visit: No Status: Acute (3) Weakness: Problem details: Patient will continue therapy here in the hospital anticipate discharge home with hospice Current visit: No Status: Acute (4) Atrial fibrillation: Current visit: Yes Status: Acute Quality VTE Deep Vein Thrombosis/Pulmonary Embolism Present on Admission: No
--- NOTE | 2018-09-20 18:41 | PC.NURSE ---
Pt A/O x3, left facial droop with mod to severe slurring, but understandable, left arm NO movement, left leg drift to bed, NIH- 11. 97%RA, LS wheezy throughout, improved with cough. BP 189/100, HR 93, admin 10mg hydralazine IVP. 175mL clear brown out from T-tube @ 1830. RFA NS +40 KCL @ 100 infusing. Declines to get OOB. Pt requested BLT for dinner, at a late time, offered 1/2 sandwich from [employer], pt declined, only ate the fruit on tray. Alana in room, helps with pt using urinal. Pt reports no needs at this time. Call light in reach and bed alarm on.
[2018-09-20] MEDS: HYDRALAZINE 20 MG/ML VIAL 10 MG IV (18:56)
[2018-09-21] VITALS (9 sets, daily range): BP systolic 148–167; BP diastolic 70–118; PULSE 88–103; RESP 16–24; TEMP 36.3–36.9; O2SAT 96–98
[2018-09-21] MEDS: HYDRALAZINE 20 MG/ML VIAL 10 MG IV ×2 (01:42→16:58)
--- NOTE | 2018-09-21 04:27 | PC.NURSE ---
pt is hypertensive, administered hydralazine for BP 167/94, P 92. re-assessed BP 159/77, P 89. L. side weakness. NIH: 13. no visible hematuria. Pt. was 2pa to the BSC. he had a lot of gas, but no bowel movement. call light in reach.safety checks on.
[2018-09-21] MEDS: KCL 40 MEQ IN NS 1,000 ML 100 MEQ IV (05:57)
--- NOTE | 2018-09-21 09:55 | PC.NURSE ---
AM NOTE - Alert, l facial droop, speech is slurred, understandable, oriented, states I'm going home today, set up provided for breakfast, able feed self, briefly able to squeeze l hand but limb is flaccid, slightly raising lle from mattress on command, denies pain, t tube draining thin, brown fluid, hr irreg 90.
--- NOTE | 2018-09-21 11:23 | ST.IPDYTX ---
Care Team Visit Care Team Role Provider Type Tato Lamb MD Other Providers Physician Specialty: General Surgery Address: [address] [place] [address], [address] Email: [email or web address] Arnold Kramer DO Emergency Provider Physician Specialty: Emergency Medicine Address: [address] [place] [address], [address] Email: [email or web address] DENISSE Camarena Admit Provider Advanced Naval Architect Specialist Attending Provider Specialty: Internal Medicine Address: [address] [place] [address], [address] Email: DRIVER LICENSE REVIEWING OFFICER Dysphagia Treatment DRIVER LICENSE REVIEWING OFFICER Dysphagia Treatment Start: 09/18/18 15:11 Freq: Status: Active Protocol: Document 09/18/18 15:11 TLC (Rec: 09/18/18 15:18 TLC [id number]) Dysphagia Treatment Patient Information Subjective Observations No treatment provided on this date - eval only. Error in documentation. Treatment Liquids Trialed Thin [place]
--- NOTE | 2018-09-21 11:23 | OT.IP.TRT ---
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) Cerebral infarction, unspecified (09/16/18) Weakness (09/16/18) Occupational Therapy Treatment Note M2 OT-IP Current Condition Start: 09/18/18 15:44 Freq: Status: Active Protocol: Document 09/18/18 12:24 PJM (Rec: 09/18/18 16:12 PJM [id number]) Occupational Therapy Current Condition Current Condition Evaluation Date 09/18/18 Treatment Diagnosis new strokes w/LUE weakness, dysarthria, recent mary w/CBD stone, drain Diagnosis Onset Date 09/16/18, 09/17/18 Post Operative Precautions Abdominal Surgery Precautions Log Roll Lifting Restrictions Gait Belt above Incisional Area Other Precautions T-tube with gravity bag R lower quadrant, fall risk, NPO pending S.T. 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 Pt's not present, to try to talk to her tomorrow.
--- NOTE | 2018-09-21 11:24 | ST.IPTN ---
Care Team Visit Care Team Role Provider Type Tato Lamb MD Other Providers Physician Address: [address] [place] [address], [address] Arnold Kramer DO Emergency Provider Physician Address: [address] [place] [address], [address] DENISSE Camarena Admit Provider Advanced Shaker Screen Operator Attending Provider Address: [address] [place] [address], [id number] FINISHER HAND Treatment Note FINISHER HAND Treatment Note Start: 09/19/18 10:18 Freq: Status: Active Protocol: Document 09/21/18 11:17 MRM (Rec: 09/21/18 11:22 MRM [id number]) Speech Pathology Treatment Note Session Time Visit Start Time 11:10 Visit Stop Time 11:15 Total Visit Minutes 5 Setting Treatment Setting Acute Care Visit Type Note Type Treatment Note Next Note Type Next Note Type Treatment Note Subjective Identification Type Name Observations/Patient Presentation Patient awake, resting, with family present (). verbalized that she is feeling overwhelmed with the level of care she will need to provide her when he is discharged home. FINISHER HAND recommended that she speak with Dr Abbott to discuss the best options for care after discharge. Limited time with the family due to their high level of anxiety and distraction on other things. Objective Short Term Goals Given occasional reminders, Yair will utilize dysarthria speaking strategies to improve speech intelligibility to <60 % in order to increase communicative effectiveness and decrease frustration. Yair and his will participate in and demonstrate understanding of education regarding strategies for improving functional communication. Treatment Activities FINISHER HAND provided education to the patient and family regarding oral care, left-sided awareness to prevent pocketing , proper insertion of dentures and free water protocol. They verbalized understanding and had no questions. Limited time with them due to their distraction, needed to leave, they were anxious. At this time, no follow up is appropriate due to patient's disinterest in participating in therapy and is poor overall prognosis. Discharge from speech therapy. Please resconsult if needed. Assessment Patient Response to Treatment Excellent Rehab Potential Poor Impairments Identified Dysphagia Progress Towards Goals Appropriate for Discharge Assessment of Overall Progress Plateaued Reviewed with Patient Goals Plan Amount of Therapy Recommended No Further Therapy Frequency of Treatment No Further Therapy Therapy Recommendations Discharge from Speech Therapy
[2018-09-21] MEDS: CEFEPIME 2 GM in SODIUM CHLORIDE 0.9% 100 ML 200 ML IV (11:40)
--- NOTE | 2018-09-21 12:08 | PT.IPTN ---
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) Cerebral infarction, unspecified (09/16/18) Weakness (09/16/18) Physical Therapy Treatment Note M2 PT-IP Current Condition Start: 09/17/18 15:11 Freq: NEEDED Status: Active Protocol: Document 09/17/18 13:43 RCC (Rec: 09/17/18 15:34 RCC [id number]) Physical Therapy Current Condition Current Condition Evaluation Date 09/17/18 Treatment Diagnosis CVA, impaired mobility, LUE weakness Precautions Abdominal Surgery Precautions Log Roll Lifting Restrictions Gait Belt above Incisional Area Other Precautions T-tube R lower quadrant M3 PT-IP Subjective Start: 09/17/18 15:11 Freq: NEEDED Status: Active Protocol: Document 09/21/18 11:49 SA (Rec: 09/21/18 12:08 SA [email or web address]) Subjective Physical Therapy Visit Type Type Treatment Note Visit Start Time 10:25 Visit Stop Time 10:55 Total Visit Minutes 30 Notes Pt upset that he is staying until Tuesday, Alana is organizing Hospice care, equitment ordering and preparing the home for patient 's return. Physical Therapy Visit Comments Patient Comments Pt expressed feeling inpatient and upset about not going home. Discussed d/c plan in more detail with patient and his and preparations being made to prevent re-admit . Patient Goals To go home with . Therapy Pain Assessment Pain When Pain Assessed At Rest Pain Present Pain Present Denied Pain M4 PT-IP Mobility and Gait Start: 09/17/18 15:11 Freq: NEEDED Status: Active Protocol: Document 09/21/18 11:49 SA (Rec: 09/21/18 12:08 SA [email or web address]) PT-Bed Mobility Assessment Rolling Type of Rolling Roll to Right Roll to Left Level of Assist Contact Guard Assistance Supine to Sit Supine to Sit Contact Guard Assistance Scooting Scooting to Edge of Bed Minimal Assistance Scooting Up and Down in Bed Minimal Assistance PT-Transfer Assessment Sit to and From Stand Sit to and from Stand Minimal Assistance Equipment Transfer Assistive Device Gait Belt Front Wheeled Walker Orthotic/Prosthetic Devices or Brace: No Transfers Transfer Destination Bed Chair Transfer Technique Stand Step Pivot Transfer Ability Level of Assist Minimal Assistance Comments Mobility Comments Pt able to move from supine to sit with CGA and sit to stand with CGA-Min A. Maintained standing balance at FWW x 30 seconds but fatigued quickly. Caregiver training for bed mobility conducted with Alana. M5 PT-IP Objective Assessments Start: 09/17/18 15:11 Freq: NEEDED Status: Active Protocol: Document 09/17/18 10:35 RCC (Rec: 09/17/18 15:27 RCC [id number]) Orientation Orientation/Cognition Level of Alertness Alert Orientation Name Age Birthday Month Date Year Day of Week Place Situation Gross Range of Motion Upper Extremity ROM Assessment Left Impaired Impairments impaired AROM of the L shoulder but normal PROM Lower Extremity ROM Assessment Within Functional Limits Strength Upper Extremity Strength Assessment Left Impaired Shoulder flexion 2/5 L, abduction 3-/5 L Elbow flexion and extension 2+/5 L Wrist flexion and extensoin 2/5 L Lower Extremity Strength Assessment Left Impaired Hip flexion 4/5 L Knee flexion and extension 3+/5 L Ankle DF 4/5 L Comments Strength Comments pt with LUE 3rd digit flexion with increased tension (unable to open all of the way L hand ). Coordination Assessment Gross Coordination Gross Coordination Impaired Assessment Finger to Nose Test Severe Impairment Pronation/Supination Test Severe Impairment Foot Tapping Test Moderate Impairment Heel on Schultz Test Moderate Impairment Sensation Assessment Sensation Gross Sensation Left UE Impaired Muscle Tone Comments Muscle Tone Comments flaccid LUE except for increased tone in L hand/ fingers M6 PT-IP Treatment Start: 09/17/18 15:11 Freq: NEEDED Status: Active Protocol: Document 09/21/18 11:49 (Rec: 09/21/18 12:08 [email or web address]) Physical Therapy Treatment Exercises Exercises Ankle Pumps Gluteal Sets Heel Slides Education Education Provided Safety Other Treatments Other Treatment Performed Discussion with Alana about patient returning home at level and equipment needs ( hospital bed, ect) She seemed comfortable with plan in place for patient returning home and with bed mobility and transfer training. M7 PT-IP Assessment and Plan Start: 09/17/18 15:11 Freq: NEEDED Status: Active Protocol: Document 09/21/18 11:49 SA (Rec: 09/21/18 12:08 [email or web address]) PT Summary Assessment and Plan Summary Assessment Summary Focused on caregiver training with Alana and clarifying d/c plan with her and patient. Alana expressed concern that patient will return home and refuse meds and food and then become very weak.
[2018-09-21] MEDS: SODIUM CHLORIDE 0.45% 1,000 ML 50 ML IV (13:20)
--- NOTE | 2018-09-21 15:47 | PM.PN.1 ---
Subjective Date Patient Seen: 09/21/18 Interval history: Patient reports feeling disappointed that he is unable to go home. He will be discharged on Tuesday once hospice is in place. He continues to have a flaccid left upper extremity, left facial droop. He has no specific complaints Exam Vital Signs (past 8 hours): - 09/21/18 08:04 09/21/18 11:06 Temperature 97.6 F 97.9 F Pulse Rate 100 H 88 Respiratory Rate 20 18 Blood Pressure 149/70 H 163/78 H Pulse Oximetry 96 96 Oxygen Delivery Method Room Air Oxygen Flow Rate 0 Narrative Exam Narrative: Pleasant gentleman in no acute distress HEENT: Left facial droop, slurred speech, Lungs: Clear to auscultation Cardiac exam: Regular rate and rhythm normal S1 and S2 Abdomen: Soft and nontender Extremity: No edema Neuro exam: Left upper extremity lenin paresis, left facial droop, slurring speech Objective Labs Result Diagrams: 09/19/18 04:08 09/19/18 04:08 Assessment & Plan (1) Atrial fibrillation: Problem details: Heart rate well controlled. Will continue Coumadin given 2 recent strokes. Current visit: Yes Status: Acute (2) Stroke: Problem details: The patient is off anticoagulation at this time. Will continue physical therapy occupational therapy. Plan is for him to discharge home on hospice on Tuesday Qualifiers: CVA mechanism: unspecified Laterality of affected vessel: Precerebral and cerebral artery: Qualified Code(s): I63.9 - Cerebral infarction, unspecified Current visit: Yes Status: Acute (3) Severe protein-calorie malnutrition: Problem details: Will continue pleasure feeding. Current visit: No Status: Acute (4) Weakness: Problem details: Patient will continue therapy here in the hospital anticipate discharge home with hospice Current visit: No Status: Acute (5) Common bile duct stone: Problem details: T tube in place per surgery. Current visit: No Status: Acute (6) Bacteremia: Problem details: Bacteremia secondary to common bile duct stone. Will continue IV antibiotics until discharge. Current visit: Yes Status: Acute Quality VTE Deep Vein Thrombosis/Pulmonary Embolism Present on Admission: No
[2018-09-21] MEDS: WARFARIN 2.5 MG TABLET PO (17:09)
[2018-09-22] VITALS (8 sets, daily range): BP systolic 111–159; BP diastolic 57–92; PULSE 57–108; RESP 15–22; TEMP 36.3–37; O2SAT 92–97
[2018-09-22] MEDS: CEFEPIME 2 GM in SODIUM CHLORIDE 0.9% 100 ML 200 ML IV ×2 (00:51→12:31)
[2018-09-22] MEDS: SODIUM CHLORIDE 0.45% 1,000 ML 50 ML IV (08:53)
--- NOTE | 2018-09-22 09:50 | PC.NURSE ---
AM NOTE - awake, speech is slurred, understandable, thread twister assist with meal set up and pt fed self, l side weakness and facial droop, responses appropriate, denies discomfort, phys therapy in this am and using fww able to do bedside exercises, dangled and then stood several times to practice strengthening, weakness, flaccid lue, able to wt bear some w/lle.
--- NOTE | 2018-09-22 13:15 | PM.PN.1 ---
Subjective Date Patient Seen: 09/22/18 Interval history: He is seen today to follow up the CVA effects and his hospice discharge plans. No significant changes since yesterday. He is DNR on the hospital records which will need to be clarified on the POLST form. Exam Vital Signs (past 8 hours): - 09/22/18 05:46 09/22/18 07:36 09/22/18 11:44 Temperature 98.2 F 98.1 F 97.4 F L Pulse Rate 94 H 87 81 Respiratory Rate 16 Blood Pressure 149/57 H 159/70 H 156/77 H Pulse Oximetry 96 97 97 Oxygen Delivery Method Room Air Oxygen Flow Rate 0 Narrative Exam Narrative: Alert and oriented to name. He appears quite cachectic. Heart is regular rate and rhythm without murmur. Abdomen is soft, nontender, no organomegaly, T tube draining in place with clear yellow fluid. Objective Labs Result Diagrams: 09/19/18 04:08 09/19/18 04:08 Assessment & Plan Plan: Assessment/Plan Narrative: (1) Atrial fibrillation: Problem details: Heart rate well controlled. Will continue Coumadin given 2 recent strokes. The last INR was 1.3 on September 18 so that will be repeated today. Current visit: Yes Status: Acute (2) Stroke: Problem details: The patient continues on Coumadin at this time. Will continue physical therapy occupational therapy. Plan is for him to discharge home on hospice on Tuesday at 9:00 a.m.. Qualifiers: CVA mechanism: unspecified Laterality of affected vessel: Precerebral and cerebral artery: Qualified Code(s): I63.9 - Cerebral infarction, unspecified Current visit: Yes Status: Acute (3) Severe protein-calorie malnutrition: Problem details: Will continue pleasure feeding. Current visit: No Status: Acute (4) Weakness: Problem details: Patient will continue therapy here in the hospital anticipate discharge home with hospice Current visit: No Status: Acute (5) Common bile duct stone: Problem details: T tube in place per surgery. Current visit: No Status: Acute (6) Bacteremia: Problem details: Bacteremia secondary to common bile duct stone. Will continue IV antibiotics until discharge. Current visit: Yes Status: Acute Quality VTE Deep Vein Thrombosis/Pulmonary Embolism Present on Admission: No
--- NOTE | 2018-09-22 13:22 | PT.IPTN ---
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) Cerebral infarction, unspecified (09/16/18) Calculus of bile duct without cholangitis or cholecystitis without obstruction (09/16/18) Weakness (09/16/18) Bacteremia (09/16/18) Physical Therapy Treatment Note M2 PT-IP Current Condition Start: 09/17/18 15:11 Freq: NEEDED Status: Active Protocol: Document 09/22/18 13:12 NFW (Rec: 09/22/18 13:22 NFW [id number]) Physical Therapy Current Condition Current Condition Evaluation Date 09/17/18 Treatment Diagnosis CVA, impaired mobility, LUE weakness Precautions Abdominal Surgery Precautions Log Roll Lifting Restrictions Gait Belt above Incisional Area Other Precautions T-tube with gravity bag R lower quadrant, fall risk, NPO pending S.T. 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 M4 PT-IP Mobility and Gait Start: 09/17/18 15:11 Freq: NEEDED Status: Active Protocol: Document 09/21/18 11:49 SA (Rec: 09/21/18 12:08 SA [id number]) PT-Bed Mobility Assessment Rolling Type of Rolling Roll to Right Roll to Left Level of Assist Contact Guard Assistance Supine to Sit Supine to Sit Contact Guard Assistance Scooting Scooting to Edge of Bed Minimal Assistance Scooting Up and Down in Bed Minimal Assistance PT-Transfer Assessment Sit to and From Stand Sit to and from Stand Minimal Assistance Equipment Transfer Assistive Device Gait Belt Front Wheeled Walker Orthotic/Prosthetic Devices or Brace: No Transfers Transfer Destination Bed Chair Transfer Technique Stand Step Pivot Transfer Ability Level of Assist Minimal Assistance Comments Mobility Comments Pt able to move from supine to sit with CGA and sit to stand with CGA-Min A. Maintained standing balance at FWW x 30 seconds but fatigued quickly. Caregiver training for bed mobility conducted with Alana. M5 PT-IP Objective Assessments Start: 09/17/18 15:11 Freq: NEEDED Status: Active Protocol: Document 09/17/18 10:35 RCC (Rec: 09/17/18 15:27 RCC [id number]) Orientation Orientation/Cognition Level of Alertness Alert Orientation Name Age Birthday Month Date Year Day of Week Place Situation Gross Range of Motion Upper Extremity ROM Assessment Left Impaired Impairments impaired AROM of the L shoulder but normal PROM Lower Extremity ROM Assessment Within Functional Limits Strength Upper Extremity Strength Assessment Left Impaired Shoulder flexion 2/5 L, abduction 3-/5 L Elbow flexion and extension 2+/5 L Wrist flexion and extensoin 2/5 L Lower Extremity Strength Assessment Left Impaired Hip flexion 4/5 L Knee flexion and extension 3+/5 L Ankle DF 4/5 L Comments Strength Comments pt with LUE 3rd digit flexion with increased tension (unable to open all of the way L hand ). Coordination Assessment Gross Coordination Gross Coordination Impaired Assessment Finger to Nose Test Severe Impairment Pronation/Supination Test Severe Impairment Foot Tapping Test Moderate Impairment Heel on Schultz Test Moderate Impairment Sensation Assessment Sensation Gross Sensation Left UE Impaired Muscle Tone Comments Muscle Tone Comments flaccid LUE except for increased tone in L hand/ fingers M6 PT-IP Treatment Start: 09/17/18 15:11 Freq: NEEDED Status: Active Protocol: Document 09/22/18 13:12 NFW (Rec: 09/22/18 13:22 [facility] [id number]) Physical Therapy Treatment Exercises Exercises Ankle Pumps Gluteal Sets Heel Slides Straight Leg Raises Other Treatments Other Treatment Performed Additional Exercises: Heelslides alternate Single leg bicycles Bridging All exercises 10 Reps, 5 sec holds with exception of single leg bicycle and ankle pumps. Also performed PROM to LUE M7 PT-IP Assessment and Plan Start: 09/17/18 15:11 Freq: NEEDED Status: Active Protocol: Document 09/22/18 13:12 NFW (Rec: 09/22/18 13:22 [facility] [id number]) PT Summary Assessment and Plan Summary Assessment Summary After completion of exercises patient reported fatigue and did not want to continue. Treatment Plan Physical Therapy Treatment Plan Bed Mobility Training Transfer Training
--- NOTE | 2018-09-22 15:09 | PT.IPTN ---
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) Cerebral infarction, unspecified (09/16/18) Calculus of bile duct without cholangitis or cholecystitis without obstruction (09/16/18) Weakness (09/16/18) Bacteremia (09/16/18) Physical Therapy Treatment Note M2 PT-IP Current Condition Start: 09/17/18 15:11 Freq: NEEDED Status: Active Protocol: Document 09/22/18 13:12 NFW (Rec: 09/22/18 13:22 NFW [id number]) Physical Therapy Current Condition Current Condition Evaluation Date 09/17/18 Treatment Diagnosis CVA, impaired mobility, LUE weakness Precautions Abdominal Surgery Precautions Log Roll Lifting Restrictions Gait Belt above Incisional Area Other Precautions T-tube with gravity bag R lower quadrant, fall risk, NPO pending S.T. 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 M4 PT-IP Mobility and Gait Start: 09/17/18 15:11 Freq: NEEDED Status: Active Protocol: Document 09/22/18 09:20 LJ (Rec: 09/22/18 15:08 LJ [id number]) PT-Bed Mobility Assessment Rolling Type of Rolling Roll to Right Roll to Left Level of Assist Contact Guard Assistance Supine to Sit Supine to Sit Contact Guard Assistance Scooting Scooting to Edge of Bed Minimal Assistance Scooting Up and Down in Bed Minimal Assistance PT-Transfer Assessment Sit to and From Stand Sit to and from Stand Minimal Assistance Equipment Transfer Assistive Device Gait Belt Front Wheeled Walker Orthotic/Prosthetic Devices or Brace: No Transfers Transfer Destination Bed Transfer Ability Level of Assist Minimal Assistance Comments Mobility Comments Pt able to perform log roll with assist with LUE. SBA with sit<>stand. M
--- NOTE | 2018-09-22 15:46 | CM.DPC ---
DCP/ Call from hospice/ need to meet with patient around 10-11. Requesting patient discharge by 0900. Notified MD and nursing cord. Plan: Discharge Tuesday at 0900 with hospice.
[2018-09-22] MEDS: WARFARIN 2.5 MG TABLET PO (17:30)
--- NOTE | 2018-09-22 18:26 | PC.NURSE ---
Addendum entered by Desirae Rivas R.N. 09/22/18 22:35: Relatively uneventful evening Tolerating regular diet in small bites. T-drain intact/patent dark content. IV continues as per orders. Call light w/in reach, bed alarm on for pt safety. Continue w/plan of care. Original Note: Pt watching TV. Denies discomfort at this time. IV of 1/2 NS @ 50cc/hr via pump infusing w/o incidence. T-drain patent dark content. Call light w/in dave, bed alarm on for pt safety.
[2018-09-22 18:39] LABS: INR 1.3 (0.9-1.3); Prothrombin Time 14.4 SECONDS (10.1-12.7)
[2018-09-23] MEDS: CEFEPIME 2 GM in SODIUM CHLORIDE 0.9% 100 ML 200 ML IV (00:35)
[2018-09-23 03:08] VITALS: BP 132/62; PULSE 89; RESP 20; TEMP 36.4; O2SAT 97
[2018-09-23] MEDS: SODIUM CHLORIDE 0.45% 1,000 ML 50 ML IV (05:31)
[2018-09-23 08:15] VITALS: BP 159/67; PULSE 82; RESP 16; TEMP 36.3; O2SAT 98
--- NOTE | 2018-09-23 08:58 | P.DS_ITS ---
History of Present Illness Date Patient Seen: 09/23/18 Chief complaint: NEURO DEFICIT Narrative: The patient is a 78-year-old male with PMH significant for severe PAD and carotid artery stenosis, acute emboilc CVA (08/23/18), severe COPD, tobacco dependence, severe protein calorie malnutrition. Patient presented to the ED on 09/16/2018 out of concern for inability to move his left upper extremity. Symptom onset 09/16/2018 at a time unknown to the patient. In ED LUE noted to be flaccid. NIHSS upon ED presentation is documented as 4. It is not clear if patient misunderstood the directions given to him by General surgery during 09/13 f/u appointment; however, patient reports stopping warfarin 2-3 days ago. Patient reports having abdominal discomfort earlier in the day. Also, reports experiencing generalized weakness. Fell asleep in the late afternoon and notes sleeping for about 3 hr, respectively. Woke up at 6:00 p.m. and at that time noted himself to be weak and having difficulty moving left upper extremity. Associated symptoms include: Denies experiencing headache, change in vision or loss of vision, slurred speech , facial numbness or extremity paresthesia. He has experienced 1 fall while being on Coumadin; however, no falls in the past 1 week. Reports baseline LLE weakness. Reports persistent and worsening weakness since his most recent hospitalization. His appetite is poor, has been tolerating nutritional shakes. Reports diminished appetite. Experienced weight loss of at least 45 lb in the past month. Recent Hospitalizations Biliary pancreatitis with retained distal CBD stone s/p open cholecystectomy and T-tube drainage. Tentative plan for ERCP on 10/02/2018. Followed by Dr. Lamb. 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 T- tube clamped. Declined SNF / rehab; declined PEG tube placement off Plavix for PEG tube placement, not restarted at discharge 09/13/2018 f/u outpatient with Dr. Lamb. Complained of abdominal pain after taking lisinopril (lisinopril stopped). Continues to be off Plavix. Asked to stop Coumadin 5 days prior to ERCP (after Dec 4th dose). ED workup consisted of a head CT, which was unremarkable for an acute intracranial process. 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 Dr. Kramer communicated discussing findings with the stroke team / neurologist (Dr. Garcia) at [facility] and patient was not deemed to be a candidate for tPA or carotid endarterectomy. Discharge Providers Date of admission: 09/16/18 23:13 Consults: 09/16/18 23:48 Consult to Discharge Planning Routine Comment: Consult to Occupational Therapy Evaluate & Treat Comment: Physician Instructions: Evaluate and treat Consult to Physical Therapy Evaluate & Treat Comment: Physician Instructions: Evaluate and Treat 09/17/18 08:19 Consult to Speech Therapy Evaluate & Treat Comment: Physician Instructions: Evaluate and treat 09/17/18 12:28 Consult to General Surgery Routine Comment: Consulting Provider: Tato Lamb Reason for consultation: Bacteremia, abdominal pain Has provider been notified: Yes 09/18/18 10:44 Consult to Speech Therapy Evaluate & Treat Comment: New CVA in hospital. Physician Instructions: Evaluate and treat Discharge provider: Mira Tellez MD Discharge Date: 09/23/18 Summary Discharge Diagnosis: 1) Atrial fibrillation: (2) Stroke: (3) Severe protein-calorie malnutrition: (4) Weakness: (5) Common bile duct stone: (6) Bacteremia: Hospital Course: 1) Atrial fibrillation: His heart rate has been controlled. He has now decided to go off his medicines. His last INR was 1.3. (2) Stroke: He is continued on Coumadin along with physical therapy. He has decided to go on hospice and so is going home today. (3) Severe protein-calorie malnutrition: He continues to eat as much as he is able (4) Weakness: He has not regained his strength and so has decided to go on hospice. (5) Common bile duct stone: T tube in place per surgery. This is still functioning well on the day of discharge. (6) Bacteremia: Bacteremia secondary to common bile duct stone. Was on IV antibiotics until discharge today. Status at Discharge Overall status at discharge: patient is not back to baseline Time Spent with Patient Greater than 30 minutes Exam Vital Signs (past 8 hours): - 09/23/18 03:08 09/23/18 08:15 Temperature 97.6 F 97.3 F L Pulse Rate 89 82 Respiratory Rate 20 16 Blood Pressure 132/62 159/67 H Pulse Oximetry 97 98 Oxygen Delivery Method Room Air Oxygen Flow Rate 0 Narrative Exam Narrative: He is somewhat distracted and still very weak. Breath sounds are diminished bilaterally. Heart is regular rate and rhythm without murmur and there is no ankle edema. Objective Labs Result Diagrams: 09/19/18 04:08 09/19/18 04:08 Labs: Laboratory Results - last 24 hr 09/22/18 18:04 PT 14.4 H INR 1.3 Discharge Plan Discharge Plan Patient Disposition: Hospice - Home Discharge comment: pain coordinator to meet him at 11 am today at his house. Discharge Med Rec/Prescriptions Prescriptions: New morphine 20 mg/5 mL (4 mg/mL) solution 10 mg PO Q4-6H PRN (Reason: pain) Qty: 100 RF: 0 lorazepam 2 mg/mL concentrate 1 mg BUCCAL BID-TID PRN (Reason: anxiety) Qty: 30 RF: 0 Discontinued lisinopril 20 mg Tablet 20 mg PO BID Qty: 60 RF: 0 metoprolol tartrate 50 mg Tablet 50 mg PO BID Qty: 60 RF: 0 warfarin [Coumadin] 3 mg tablet 1 mg PO BID RF: 0 atorvastatin [Lipitor] 20 mg Tablet 40 mg PO BEDTIME Qty: 30 RF: 0 lisinopril 20 mg Tablet 20 mg PO DAILY Qty: 30 RF: 0 metoprolol tartrate 50 mg Tablet 50 mg PO BID Qty: 60 RF: 0 Provider Discharge Instructions Diet: Feed on demand Other treatments: T-tube drain bag empty daily and prn Visit Report/Discharge Packet Visit Report Forms: Stroke Signs & Symptoms Discharge Data Attending Provider: Lambert Payton Admit Date/Time: 09/16/18 23:13 Discharges patient from system. Discharge Date/Time: 09/23/18 09:57 Quality VTE Deep Vein Thrombosis/Pulmonary Embolism Present on Admission: No
--- NOTE | 2018-09-23 09:08 | CM.DPC ---
DCP Discharge Home with [facility] Per MD, pt is medically stable to d/c home today with Hospice. SOFIYA called [facility] and updated that pt would be discharging this morning and they confirmed that they can open the pt to service between [id number]. SOFIYA faxed d/c summ draft to [facility] to review while waiting for electronic MD signature. Per PT, pt could possibly transport via w/c van if left side could be somewhat propped up but not safe for private vehicle transport due to trunk weakness, left side weakness, and lack of ambulation and assist needs. NAY Esteban called 3 w/c van companies and none had any availability to transport the pt this morning home. Due to pt's CVA, trunk weakness, lack of ambulation, assist level, left side weakness medical need for BLS non emergent transport set up. NAY Esteban scheduled [facility] transport BLS for 0945 today home. SOFIYA called pt's spouse at home and updated and spouse still agreeable with d/c plan of home with Hospice and SW discussed transport options and spouse agreeable with BLS transport as she feels pt needs this to safely get home. SOFIYA completed BLS transport form and MD signature and placed on chart with facesheet and copy of POLST. SOFIYA updated RN, pt, and spoke to pt's spouse via phone and updated and she states she also spoke with spinning bath patroller and confirmed time for intake. Plan: Patient to d/c home via [facility] BLS transport with [facility] to open pt service today at 1000. LIZBETH Hoover
--- NOTE | 2018-09-23 09:55 | PC.NURSE ---
Day shift: Pt left unit with BLS at approx 0955. He has his paperwork and MD scrips. T-tube was emptied and new brief but on. Pt appeared to be happy.
== END 2018-09-23 09:57 | disposition hospice, home (50) | DRG 64 ==
LOC: ED 22:16 → AC 23:14
PROVIDERS: Family Medicine; Hospitalist; Internal Medicine; Admitting Provider Nurse Practitioner Gerontology; Emergency Provider Emergency Medicine; Visit Provider Nurse Practitioner Gerontology
DX: I63.131 Cerebral infarction due to embolism of right carotid artery (principal); E43 Unspecified severe protein-calorie malnutrition; K85.90 Acute pancreatitis without necrosis or infection, unspecified; Z68.1 Body mass index [BMI] 19.9 or less, adult; D68.32 Hemorrhagic disorder due to extrinsic circulating anticoagulants; R78.81 Bacteremia; K80.41 Calculus of bile duct with cholecystitis, unspecified, with obstruction; I48.0 Paroxysmal atrial fibrillation; Z79.01 Long term (current) use of anticoagulants; G83.24 Monoplegia of upper limb affecting left nondominant side; R31.0 Gross hematuria; R04.0 Epistaxis; T45.515A Adverse effect of anticoagulants, initial encounter; I73.9 Peripheral vascular disease, unspecified; J44.9 Chronic obstructive pulmonary disease, unspecified; F17.210 Nicotine dependence, cigarettes, uncomplicated; I10 Essential (primary) hypertension; R91.8 Other nonspecific abnormal finding of lung field; D63.8 Anemia in other chronic diseases classified elsewhere; E87.6 Hypokalemia
CPT/HCPCS: 36415; 36591; 70450; 70496; 70498; 70553; 80048; 80053; 80305; 81001; 81003; 82247; 82962; 83605; 83690; 83735; 84100; 84450; 84460; 85025; 85610; 85730; 87040; 87070; 87075; 87077; 87150; 87186; 87205; 92522; 92523; 92526; 92610; 93005; 94762; 96360; 96361; 97110; 97163; 97166; 97530; 99223; 99231; 99285; 99291; J0360; J0692; J1644; J3480; J7050; Q9967